=== PATIENT | male | born 1950 | race Caucasian/White ===

== ENCOUNTER → 2018-07-21 05:14 | Outpatient (CLI) | payer BC, MEDICARE, SELFPAY ==
[2018-07-21 07:41] LABS: AST(SGOT) 21 U/L (15-37); Alanine Aminotransfer ALT/SGPT 30 U/L (16-61); Albumin, Serum 3.6 g/dL (3.2-5.0); Alkaline Phosphatase 79 U/L (45-117); Bilirubin, Direct 0.13 mg/dL (0.00-0.30); Cholesterol 165 mg/dL (200); Globulin 3.3 g/dL (2.2-4.2); High Density Lipoprotein 54 mg/dL; Protein, Total 6.9 g/dL (6.4-8.2); Triglycerides 74 mg/dL; Very Low Density Lipoprotein 15 mg/dL (5-40)
== END ==
PROVIDERS: Nurse Practitioner Family; Referring Provider Internal Medicine Cardiovascular Disease; Visit Provider Internal Medicine Cardiovascular Disease
DX: E78.2 Mixed hyperlipidemia (principal)
CPT/HCPCS: 36415; 80061; 80076

== ENCOUNTER 2018-07-27 04:41 | Emergency (ER) | payer BC, MEDICARE, SELFPAY ==
[2018-07-27 04:43] VITALS: BP 106/77; PULSE 67; RESP 18; TEMP 36.6; O2SAT 98; BMI 27.8
[2018-07-27 04:50] VITALS: O2SAT 93
--- NOTE | 2018-07-27 04:56 | CT_ITS ---
STUDY: CT BRAIN WITHOUT CONTRAST REASON FOR EXAM: Male, 68 years old. Fell off porch RADIATION DOSAGE (If Supplied By Facility): CTDIvol = ( 44.99 ) mGy, DLP = ( 812.98 ) mGycm TECHNIQUE: Transaxial CT imaging of the brain was performed without administration of intravenous contrast material. Individualized dose optimization techniques were used for this CT. COMPARISON: None. FINDINGS: Normal soft tissue structures. Normal calvarium. Normal size ventricles and extra-axial spaces for the patient's age. There are areas of decreased attenuation within the white matter tracts of the supratentorial brain, consistent with microvascular disease changes. Age-related changes of the basal ganglia. Normal brainstem. Normal cerebellum. There is no intracranial hemorrhage. There are no findings of an acute ischemic infarction. Bilateral ethmoid sinus disease. Right sphenoid sinus disease. CT/Brain/Head without Contrast IMPRESSION: No fracture or hemorrhage. Electronically Signed: Farhan Levine MD at 6:28 EDT Tel , Service support ,
--- NOTE | 2018-07-27 04:56 | EKG12_ITS ---
Test Reason : FALL Blood Pressure : / mmHG Vent. Rate : 073 BPM Atrial Rate : 073 BPM P-R Int : 148 ms QRS Dur : 098 ms QT Int : 396 ms P-R-T Axes : 073 017 033 degrees QTc Int : 436 ms Normal sinus rhythm Possible Left atrial enlargement Inferior infarct , age undetermined Abnormal ECG Confirmed by MOSES PACE, CAL ([id number]), subeditor DESTINI GAVIRIA ([id number]) on 07/28/2018 2:11:07 PM Referred By: Cal Brody Confirmed By:CAL BRODY MD
--- NOTE | 2018-07-27 04:56 | CT_ITS ---
STUDY: CT CERVICAL SPINE WITHOUT CONTRAST REASON FOR EXAM: Male, 68 years old. Trauma, fell off porch RADIATION DOSAGE (If Supplied By Facility): CTDIvol = ( 25.54 ) mGy, DLP = ( 518.29 ) mGycm TECHNIQUE: High resolution transaxial imaging was performed without contrast material. Sagittal and coronal images were reconstructed. Individualized dose optimization techniques were used for this CT. COMPARISON: None FINDINGS: Normal craniovertebral junction. Degenerative changes are present involving the atlantodental articulation. Normal odontoid process. Normal cervical lordosis. Normal vertebral bodies and posterior osseous elements. Diffuse degenerative disease is present. No acute fractures or dislocations are seen. Carotid calcifications. CT/Spine Cervical without Contras IMPRESSION: No acute osseous injury is evident. Comment: MRI is more sensitive than CT in detecting cord injury, ligament injury, and epidural hematoma. If there is continued clinical concern for any of these entities, MRI correlation should be considered if possible. Electronically Signed: Farhan Levine MD at 6:31 EDT Tel , Service support ,
--- NOTE | 2018-07-27 04:56 | CT_ITS ---
STUDY: CT ABDOMEN AND PELVIS WITH CONTRAST REASON FOR EXAM: Male, 68 years old. Fell off porch RADIATION DOSAGE (If Supplied By Facility): CTDIvol = ( 21.24 ) mGy, DLP = ( 2365.95 ) mGycm TECHNIQUE: Transaxial images were obtained from the dome of the diaphragm to the symphysis pubis without oral contrast. 100 ml of Isovue 300 contrast was administered. Sagittal and coronal images were reconstructed. Individualized dose optimization techniques were used for this CT. COMPARISON: None. FINDINGS: The visualized lung bases are unremarkable. The visualized portions of the heart are within normal limits. Indeterminate 17 mm low-density focus in the left hepatic lobe. Normal gallbladder and extrahepatic biliary system. Normal spleen. Normal pancreas. Normal bilateral adrenal glands. 2 cm right renal cyst. Normal left kidney. Normal visualized stomach. Normal small intestine. Normal colon. There is non-visualization of the appendix. There is diffuse atherosclerotic calcification of the abdominal aorta, without a demonstrated aneurysm. Normal inferior vena cava. Normal retroperitoneum. Normal urinary bladder. Normal abdominal wall. Acute fractures of left ribs [address]/Abdomen/Pelvis W IV Cont ONLY IMPRESSION: Acute fractures of left ribs 7 through 10. No acute soft tissue injury is seen involving the abdomen or pelvis. Electronically Signed: Farhan Levine MD at 6:48 EDT Tel , Service support ,
--- NOTE | 2018-07-27 04:56 | CT_ITS ---
STUDY: CT CHEST WITHOUT CONTRAST REASON FOR EXAM: Male, 68 years old. Fall off porch RADIATION DOSAGE (If Supplied By Facility): CTDIvol = ( 21.24 ) mGy, DLP = ( 2365.95 ) mGycm TECHNIQUE: Transaxial imaging was performed without the administration of intravenous contrast material. Individualized dose optimization techniques were used for this CT. COMPARISON: None. FINDINGS: Left lower lobe hemorrhage contusion. Bibasilar atelectasis. Calcified pleural plaques. Normal heart and pericardium. Normal mediastinum. Normal hilar regions. Normal unenhanced pulmonary arteries. Normal aorta arch and descending thoracic aorta. Acute fractures of left ribs 7 through 10. There is no demonstrated abnormality of the visualized upper abdomen. CT/Chest WITH Contrast IMPRESSION: Left lower lobe pulmonary contusion. Acute fractures of left ribs 7 through 10. Electronically Signed: Farhan Levine MD at 6:42 EDT Tel , Service support ,
[2018-07-27] MEDS: Ondansetron 4 MG/2 ML Vial IV (05:07)
[2018-07-27] MEDS: 0.9% Normal Saline 1,000 ML 999 ML IV (05:07)
[2018-07-27] MEDS: Morphine 4 MG/ML Syringe IV (05:10)
[2018-07-27 05:11] LABS: Absolute Lymphocyte Count 1.09 X10^3/ul (0.83-4.51); Basophil# 0.01 X10^3/uL; Basophil% 0.1 % (0-1); Eosinophil# 0.17 X10^3/uL; Eosinophils% 1.7 % (0-5); Hematocrit 40.2 % (40-54); Hemoglobin 13.8 g/dl (13.0-16.5); Lymphocyte # 1.09 X10^3/ul (4.0); Lymphocyte % 10.9 % (19-41); Mean Corp Hgb Conc 34.3 g/gl (32-36); Mean Corpuscular Hgb 29.9 pg (27.0-32.0); Mean Corpuscular Volume 87.2 fL (80-94); Mean Platelet Vol. 9.8 fl (6.2-12.0); Monocyte# 0.71 X10^3/uL; Monocyte% 7.1 % (0-10); Neutrophil # 7.99 X10^3/uL (2.7-7.7); POSITIVE COUNT NO; POSITIVE DIFFERENTIAL NO; POSITIVE MORPHOLOGY NO; Platelet Count 183 K/mm3 (150-450); RBC Distribution Width CV 13.3 % (11.6-14.6); RBC Distribution Width SD 42.4 fl (35.1-43.9); Red Blood Count 4.61 M/mm3 (4.6-6.2)
[2018-07-27 05:26] LABS: Anion Gap 10 (5-15); BUN 15 mg/dL (7-18); Calcium,Total 8.7 mg/dL (8.5-10.1); Chloride 102 mmol/L (98-107); Creatinine, Serum 1.15 mg/dL (0.70-1.30); EST Glomerular Filtration Rate 68 mL/min (>60); Est Glom Filt Rate - Afr Amer 82 mL/min (>60); Estimated Creatinine Clearance 65.24 ml/min; Glucose 170 mg/dL (74-106); Potassium 4.4 mmol/L (3.5-5.1); Sodium Level 137 mmol/L (136-145)
--- NOTE | 2018-07-27 07:07 | ED.VISSUMM ---
- ER Visit Summary Date of Service: 07/27/18 Chief Complaint: Broken ribs History of Present Illness: The patient is a 68 M with suspected broken ribs. He got up around 10:30 PM last night to smoke a cigarette. He bent forward to put out a cigarette. He fell off his porch and onto an air conditioning unit. He injured his left chest. He is unsure if he lost consciousness. He denies head or neck pain. Denies any neurologic symptoms. He does take aspirin and Plavix. Denies any other injuries or complaints. Physical Examination: Patient is afebrile and vital signs are unremarkable. Head and neck are atraumatic. Heart regular rate and rhythm. Lungs clear. Left anterior chest wall is tender to palpation. Abdomen tender to palpation in the left upper quadrant. Extremities atraumatic. Cranial nerves grossly intact. Moves all extremities. Good pulses. Good skin color. Test Results: EKG showed sinus rhythm at a rate of 73. Troponin normal. CBC normal. Glucose 170. Urinalysis pending. CT head and neck showed no acute findings. CT chest, abdomen, and pelvis showed a fracture of the left ribs 7, 8, 9, and 10. He has an underlying left lower lobe pulmonary contusion. Emergency Department Course and Treatment: Patient was seen on arrival. He was treated with fluids, morphine, and Zofran. Workup was unremarkable except for the rib fractures and pulmonary contusion. Given his age, symptoms, and mechanism, I am transferring to a trauma center. After speaking with the patient, I contacted [facility]. Dr. Ceron accepted the patient to the emergency department. Treatment Plan: As above Disposition: Transfer to [facility] Impression: 1. Left rib fractures 7, 8, 9, and 10 2. left pulmonary contusion This note was generated with BBE dictation software. It may contain incorrect words, spelling, and punctuation that were not noted in review of the chart prior to signing ED Disposition - Plan for ED Patient: Chief Complaint: Fall Referrals: Care Physician,No Primary [Primary Care Provider] -
--- NOTE | 2018-07-27 07:11 | ED.DCSUM_ITS ---
- ER Visit Summary Date of Service: 07/27/18 Chief Complaint: Broken ribs History of Present Illness: The patient is a 68 M with suspected broken ribs. He got up around 10:30 PM last night to smoke a cigarette. He bent forward to put out a cigarette. He fell off his porch and onto an air conditioning unit. He injured his left chest. He is unsure if he lost consciousness. He denies head or neck pain. Denies any neurologic symptoms. He does take aspirin and Plavix. Denies any other injuries or complaints. Physical Examination: Patient is afebrile and vital signs are unremarkable. Head and neck are atraumatic. Heart regular rate and rhythm. Lungs clear. Left anterior chest wall is tender to palpation. Abdomen tender to palpation in the left upper quadrant. Extremities atraumatic. Cranial nerves grossly intact. Moves all extremities. Good pulses. Good skin color. Test Results: EKG showed sinus rhythm at a rate of 73. Troponin normal. CBC normal. Glucose 170. Urinalysis pending. CT head and neck showed no acute findings. CT chest, abdomen, and pelvis showed a fracture of the left ribs 7, 8, 9, and 10. He has an underlying left lower lobe pulmonary contusion. Emergency Department Course and Treatment: Patient was seen on arrival. He was treated with fluids, morphine, and Zofran. Workup was unremarkable except for the rib fractures and pulmonary contusion. Given his age, symptoms, and mechanism, I am transferring to a trauma center. After speaking with the patient, I contacted [facility]. Dr. Ceron accepted the patient to the emergency department. Treatment Plan: As above Disposition: Transfer to [facility] Impression: 1. Left rib fractures 7, 8, 9, and 10 2. left pulmonary contusion This note was generated with Navut dictation software. It may contain incorrect words, spelling, and punctuation that were not noted in review of the chart prior to signing ED Disposition - Plan for ED Patient: Chief Complaint: Fall Referrals: Care Physician,No Primary [Primary Care Provider] -
[2018-07-27 07:15] VITALS: BP 122/79; PULSE 71; RESP 16; O2SAT 96
[2018-07-27 07:17] LABS: Bacteria 0 SEEN /hpf (None Seen); Mucous, Urine 0 SEEN /hpf (<or=2+); Red Blood Cells-Urine 0 SEEN /hpf (0-5); Squamous Epithelial Cells - UA 0 SEEN /hpf (0-5); White Blood Cells 0 SEEN /hpf (0-5)
[2018-07-27 07:20] LABS: Color, Urine Yellow (Yellow); Glucose, Dipstick Normal (Normal); Ketone-Dipstick Negative (Negative); Leukocyte Esterase-Dipstick Negative /ul (Negative); Nitrite-Dipstick Negative (Negative); Occult Blood-Urine Negative /ul (Negative); Protein-Dipstick Negative (Negative); Urine Bilirubin Dipstick Negative (Negative); Urine Clarity Clear (Clear); Urine Urobilinogen Normal (Normal)
[2018-07-27 07:28] VITALS: BP 122/79; PULSE 70; RESP 15; TEMP 36.6; O2SAT 96
== END 2018-07-27 08:19 | disposition short-term general hospital (02) ==
LOC: ED 04:58
PROVIDERS: Emergency Provider Emergency Medicine
DX: S22.42XA Multiple fractures of ribs, left side, initial encounter for closed fracture (principal); S27.321A Contusion of lung, unilateral, initial encounter; W17.89XA Other fall from one level to another, initial encounter; Y93.9 Activity, unspecified; Y92.008 Other place in unspecified non-institutional (private) residence as the place of occurrence of the external cause; Y99.9 Unspecified external cause status; Z79.82 Long term (current) use of aspirin; I10 Essential (primary) hypertension; E78.00 Pure hypercholesterolemia, unspecified; I25.10 Atherosclerotic heart disease of native coronary artery without angina pectoris; Z72.0 Tobacco use
CPT/HCPCS: 70450; 71260; 72125; 74177; 80048; 81001; 84484; 85025; 93005; 96361; 96374; 96375; 99285; J7030; Q9967; A4216; J2405

== ENCOUNTER → 2018-08-11 09:31 | Outpatient (CLI) | payer BC, MEDICARE, SELFPAY ==
--- NOTE | 2018-08-11 09:34 | CDU_ITS ---
Reason For Study: Syncope Rt. Velocities/BP Lt. Velocities/BP Prox CCA 108/19.9 cm/sec. Prox CCA 102/17.3 cm/sec. Mid CCA 83.3/17 cm/sec. Mid CCA 105/23.6 cm/sec. Dist CCA 75/17 cm/sec. Dist CCA 84.1/17.3 cm/sec. Prox ICA 66.3/22.3 cm/sec. Prox ICA 167/53 cm/sec. Mid ICA 70.4/23.5 cm/sec. Mid ICA 145/31.4 cm/sec. Dist ICA 70.4/24 cm/sec. Dist ICA 106/17 cm/sec. Rt. ICA/CCA = 0.85. Lt. ICA/CCA = 1.64. Prox ECA 81.5/8.79 cm/sec. Prox ECA 101/12.6 cm/sec. Rt. Vert. 35.9/10.2 cm/sec. Lt. Vert. 62.7/15.8 cm/sec. Right Extracranial There is intimal thickening but no significant atherosclerotic plaque noted in the right common carotid artery. There is intimal thickening but no significant atherosclerotic plaque noted in the right internal carotid artery. There is intimal thickening but no significant atherosclerotic plaque noted in the right external carotid artery. Antegrade flow is noted in the right vertebral artery. Left Extracranial There is homogeneous, smooth atherosclerotic plaque noted in the left common carotid artery. There is homogeneous, irregular atherosclerotic plaque noted in the left internal carotid artery. There is intimal thickening but no significant atherosclerotic plaque noted in the left external carotid artery. Antegrade flow is noted in the left vertebral artery. Procedure Carotid Duplex [id number]. Exam performed in department. Interpretation Summary Mild (<50%) stenosis right extracranial internal carotid. Moderate (50-69%) stenosis left extracranial internal carotid. Flow within the vertebral arteries is antegrade bilaterally. Ordering Physician: Juliet Enrique Referring Physician: Sampson De La Vega Performed By: Chrissy Minaya RVT and Student
== END ==
PROVIDERS: Family Provider Family Medicine; PCP Family Medicine; Referring Provider Physician Assistant Medical
DX: R42 Dizziness and giddiness (principal)
CPT/HCPCS: 93880

== ENCOUNTER → 2018-08-15 13:15 | Outpatient (CLI) | payer BC, MEDICARE, SELFPAY ==
[2018-08-15 16:18] LABS: Absolute Lymphocyte Count 1.66 X10^3/ul (0.83-4.51); Absolute Neutrophil Count 4.4 X10^3/uL (2.0-7.7); Basophil# 0.03 X10^3/uL; Basophil% 0.4 % (0-1); Eosinophil# 0.37 X10^3/uL; Eosinophils% 5.2 % (0-5); Hematocrit 42.4 % (40-54); Hemoglobin 14.2 g/dl (13.0-16.5); Lymphocyte # 1.66 X10^3/ul (4.0); Lymphocyte % 23.4 % (19-41); Mean Corp Hgb Conc 33.5 g/gl (32-36); Mean Corpuscular Hgb 29.5 pg (27.0-32.0); Mean Platelet Vol. 10.1 fl (6.2-12.0); Monocyte# 0.64 X10^3/uL; Neutrophil # 4.38 X10^3/uL (2.7-7.7); Neutrophil % 61.7 % (47-70); Platelet Count 325 K/mm3 (150-450); RBC Distribution Width CV 13.5 % (11.6-14.6); RBC Distribution Width SD 42.9 fl (35.1-43.9); Red Blood Count 4.82 M/mm3 (4.6-6.2); White Blood Count 7.1 K/mm3 (4.4-11.0)
[2018-08-15 16:20] LABS: POSITIVE COUNT NO; POSITIVE DIFFERENTIAL NO; POSITIVE MORPHOLOGY NO
[2018-08-15 16:39] LABS: AST(SGOT) 14 U/L (15-37); Alanine Aminotransfer ALT/SGPT 40 U/L (16-61); Albumin, Serum 3.8 g/dL (3.2-5.0); Alkaline Phosphatase 143 U/L (45-117); Anion Gap 10 (5-15); BUN 16 mg/dL (7-18); Calcium,Total 9.1 mg/dL (8.5-10.1); Chloride 101 mmol/L (98-107); Cholesterol 155 mg/dL (200); Creatinine, Serum 1.07 mg/dL (0.70-1.30); EST Glomerular Filtration Rate 74 mL/min (>60); Est Glom Filt Rate - Afr Amer 89 mL/min (>60); Globulin 3.9 g/dL (2.2-4.2); Glucose 137 mg/dL (74-106); High Density Lipoprotein 48 mg/dL; PSA,Total - Annual Screen 0.53 ng/mL (0.00-4.00); Potassium 3.8 mmol/L (3.5-5.1); Protein, Total 7.7 g/dL (6.4-8.2); Sodium Level 140 mmol/L (136-145); Thyroid Stim Hormone (TSH) 1.29 uIU/mL (0.358-3.74); Triglycerides 160 mg/dL; Very Low Density Lipoprotein 32 mg/dL (5-40)
[2018-08-15 16:47] LABS: Vitamin D,25 Hydroxy 31.6 ng/mL (29.95-100.01)
[2018-08-18 09:35] LABS: Hemoglobin A1c 6.9 % (4.2-6.3)
== END ==
PROVIDERS: Family Provider Family Medicine; PCP Family Medicine; Referring Provider Family Medicine; Visit Provider Family Medicine
DX: E78.5 Hyperlipidemia, unspecified (principal); I10 Essential (primary) hypertension; E55.9 Vitamin D deficiency, unspecified; Z12.5 Encounter for screening for malignant neoplasm of prostate; R73.09 Other abnormal glucose
CPT/HCPCS: 36415; 80053; 80061; 82306; 83036; 84153; 84443; 85025; G0103

== ENCOUNTER → 2018-08-18 09:34 | Outpatient (CLI) | payer BC, MEDICARE, SELFPAY ==
[2018-08-18 09:37] LABS: Bacteria 0 SEEN /hpf (None Seen); Mucous, Urine 0 SEEN /hpf (<or=2+); Red Blood Cells-Urine 0 SEEN /hpf (0-5); Squamous Epithelial Cells - UA 0 SEEN /hpf (0-5)
[2018-08-18 11:53] LABS: Color, Urine Yellow (Yellow); Glucose, Dipstick 50 mg/dl (Normal); Ketone-Dipstick Negative (Negative); Leukocyte Esterase-Dipstick 25 /ul (Negative); Nitrite-Dipstick Negative (Negative); Occult Blood-Urine 10 /ul (Negative); Protein-Dipstick Negative (Negative); Urine Bilirubin Dipstick Negative (Negative); Urine Clarity Clear (Clear); Urine Urobilinogen Normal (Normal); Urine pH 6.5 (5.0 - 8.0)
[2018-08-18 12:01] LABS: White Blood Cells 0-5 SEEN /hpf (0-5)
== END ==
LOC: MFPLAB 09:35 → LABSPEC 09:49
PROVIDERS: Family Provider Family Medicine; PCP Family Medicine; Visit Provider Family Medicine
DX: I10 Essential (primary) hypertension (principal)
CPT/HCPCS: 81001

== ENCOUNTER → 2018-09-09 09:06 | Outpatient (CLI) | payer BC, MEDICARE, SELFPAY ==
--- NOTE | 2018-09-09 09:12 | US_ITS ---
STUDY: RENAL ULTRASOUND - COMPLETE REASON FOR EXAM: Male, 68 years old. Incomplete bladder emptying TECHNIQUE: Ultrasound evaluation of the kidneys was performed with real-time and static goetz-scale imaging. COMPARISON: None. FINDINGS: RIGHT KIDNEY: Normal location of the right kidney, which is normal in size. The right kidney measures 10.0 x 4.7 x 5.0 cm. There is a normal cortex of the right kidney. The renal cortex measures 1.8 cm. Anechoic renal cyst with posterior acoustic enhancement of the inferior right kidney measures 1.3 cm, compatible with a simple cyst. There are no right renal calculi. There is no right hydronephrosis. DISTAL RIGHT URETER: There is non-visualization of the distal right ureter. There is no demonstrated right ureterovesical junction calculus. There is a visualized right ureteral jet. LEFT KIDNEY: Normal location of the left kidney, which is normal in size. The left kidney measures 11.1 x 6.5 x 4.9 cm. There is a normal cortex of the left kidney. The renal cortex measures 1.2 cm. There is no left renal mass or cyst. There are no left renal calculi. There is no left hydronephrosis. DISTAL LEFT URETER: There is non-visualization of the distal left ureter. There is no demonstrated left ureterovesical junction calculus. There is a visualized left ureteral jet. BLADDER: The distended urinary bladder has a volume of 880 ml. The empty urinary bladder has a volume of 710 ml. There is a normal wall thickness of the distended urinary bladder. There is no demonstrated mass within the urinary bladder. There are no demonstrated bladder calculi. There is a small urinary bladder diverticulum (right posterior). US/Kidney and Bladder IMPRESSION: 1. No hydronephrosis. 2. Significant postvoid residual volume (greater than 700 mL). 3. Small right posterolateral urinary bladder diverticulum. 4. Simple right renal cyst. Electronically Signed: Steve Guevara MD at 19:08 EST , Service support ,
== END ==
PROVIDERS: Family Provider Family Medicine; PCP Family Medicine; Referring Provider Family Medicine; Visit Provider Family Medicine
DX: R33.9 Retention of urine, unspecified (principal)
CPT/HCPCS: 76770

== ENCOUNTER 2018-09-18 13:00 | Outpatient (RCR) | payer BC, MEDICARE, SELFPAY | END 2018-09-19 23:59 | LOC: DC 13:00 | PROVIDERS: Family Provider Family Medicine; PCP Family Medicine; Visit Provider Family Medicine | DX: E11.9 Type 2 diabetes mellitus without complications (principal); Z71.3 Dietary counseling and surveillance | CPT/HCPCS: 97802; G0108 ==

== ENCOUNTER → 2018-09-23 10:02 | Outpatient (CLI) | payer BC, MEDICARE, SELFPAY ==
[2018-09-17 12:59] VITALS: BMI 27.3
[2018-09-23 10:31] LABS: Hematocrit 41.2 % (40-54); Hemoglobin 14.2 g/dl (13.0-16.5); Mean Corp Hgb Conc 34.5 g/gl (32-36); Mean Corpuscular Hgb 29.7 pg (27.0-32.0); Mean Corpuscular Volume 86.2 fL (80-94); Mean Platelet Vol. 9.7 fl (6.2-12.0); Platelet Count 216 K/mm3 (150-450); RBC Distribution Width CV 12.8 % (11.6-14.6); RBC Distribution Width SD 39.5 fl (35.1-43.9); Red Blood Count 4.78 M/mm3 (4.6-6.2); White Blood Count 6.9 K/mm3 (4.4-11.0)
[2018-09-23 10:38] LABS: Scan Indicated on CBC? Y/N NO
[2018-09-23 11:10] LABS: Anion Gap 5 (5-15); BUN 13 mg/dL (7-18); BUN/Creat Ratio 14.4 RATIO (10-20); Chloride 103 mmol/L (98-107); EST Glomerular Filtration Rate 89 mL/min (>60); Est Glom Filt Rate - Afr Amer 108 mL/min (>60); Glucose 112 mg/dL (74-106); Potassium 4.5 mmol/L (3.5-5.1); Sodium Level 136 mmol/L (136-145)
== END ==
PROVIDERS: Family Provider Family Medicine; PCP Family Medicine; Referring Provider Internal Medicine Cardiovascular Disease; Visit Provider Internal Medicine Cardiovascular Disease
DX: R42 Dizziness and giddiness (principal); R55 Syncope and collapse
CPT/HCPCS: 36415; 80048; 85027

== ENCOUNTER → 2018-10-06 07:22 | Day surgery (SDC) | payer BC, MEDICARE, SELFPAY ==
[2018-09-17 12:59] VITALS: BMI 27.3
[2018-10-03 09:12] VITALS: BMI 27.3
--- NOTE | 2018-10-06 09:03 | CL.IE_ITS ---
Patient: JANETT WALLIS Study Date: 10/06/2018 Performing: Xavi Brody MD : 1950 Age: 68 Gender: male PROCEDURES PERFORMED [id number] OF LOOP RECORDER INDICATIONS Syncope PROCEDURE DETAILS The patient was brought to the Catheterization Lab in the postabsorptive nonsedated state. Infor med consent was obtained prior to the procedure. Local anesthetic was given subcutaneously to the le ft subclavian region with Lidocaine 2%. Pressure dressing applied to left chest. The patient tolerat ed the procedure well. Estimated Blood Loss: 0 ml's IMPLANTED / EX-PLANTED DEVICES IMPLANTED DEVICE(S): ICM Loop Recorder - Tooler: [employer], Model # LNQ11 , Serial # [id number] DEVICE PARAMETERS CONCLUSIONS / RECOMMENDATIONS Device Conclusions: Successful implantation of a patient activated loop recorder. Device Recommendations: Follow up with Primary Care Physician PROCEDURE MEDICATIONS Versed 1 mg IV Fentanyl 50 mcg IV Oxygen: 2 L/min via nasal cannula Ancef 2 Gm IV @ 10/06/2018 08:43:11 Signed By Xavi Brody MD On 10/06/2018 09:02:17 Xavi Brody MD
--- OUTSIDE RECORDS SUMMARY | 2019-01-07 17:08 | XMS RPT_ITS ---
:1950 Author Organization OHIP Support Name Relationship Address Phone RADHA VUONGNDA Unavailable [address] + [place] [address] R Unavailable Unavailable Unavailable VUONG, KIMMIE Unavailable [address] + [place] [address] R Unavailable Unavailable Unavailable VUONG, KIMMIE Unavailable [address] + [place] [address] R Unavailable Unavailable Unavailable VUONG, KIMMIE Unavailable [address] + [place] [address] R Unavailable Unavailable Unavailable VUONG, KIMMIE Unavailable [address] + [place] [address] R Unavailable Unavailable Unavailable VUONG, KIMMIE Unavailable [address] + [place] [address] R Unavailable Unavailable Unavailable VUONG, KIMMIE Unavailable [address] + [place] [address] R Unavailable Unavailable Unavailable VUONG, KIMMIE Unavailable [address] + [place] [address] R Unavailable Unavailable Unavailable VUONG, KIMMIE Unavailable [address] + [place] [address] R Unavailable Unavailable Unavailable VUONG, KIMMIE Unavailable [address] + [place] [address] R Unavailable Unavailable Unavailable VUONG, KIMMIE Unavailable [address] + [place] [address] R Unavailable Unavailable Unavailable VUONG, KIMMIE Unavailable [address] + [place] [address] R Unavailable Unavailable Unavailable VUONG, KIMMIE Unavailable [address] + [place] [address] R Unavailable Unavailable Unavailable VUONG, KIMMIE Unavailable [address] + [place] [address] R Unavailable Unavailable Unavailable VUONG, KIMMIE Unavailable [address] + [place] [address] R Unavailable Unavailable Unavailable VUONG, KIMMIE Unavailable [address] + [place] [address] R Unavailable Unavailable Unavailable VUONG, KIMMIE Unavailable [address] + [place] [address] R Unavailable Unavailable Unavailable VUONG, KIMMIE Unavailable [address] + [place] [address] R Unavailable Unavailable Unavailable VUONG, KIMMIE Unavailable [address] + [place] [address] R Unavailable Unavailable Unavailable VUONG, KIMMIE Unavailable [address] + [place] [address] R Unavailable Unavailable Unavailable VUONG, KIMMIE Unavailable [address] + [place] [address] R Unavailable Unavailable Unavailable VUONG, KIMMIE Unavailable [address] + [place] [address] R Unavailable Unavailable Unavailable Care Team Providers Name Role Sampson Calles Attending Unavailable Raúl Prabhakar Referring Unavailable NoKenyatta trimble Attending Unavailable Mary Grace, Xavi Attending Unavailable Mary Grace, Xavi Referring Unavailable Primay Care Physicia, No Primary Care Unavailable Mary Grace, Cerro Attending Unavailable Primay Care Physicia, No Referring Unavailable Mary Grace, Cerro Attending Unavailable Mary Grace, Cerro Referring Unavailable Sampson De La Vega Primary Care Unavailable Mary Grace, Cerro Attending Unavailable Mary Grace, Cerro Referring Unavailable Ross Ochoa Attending Unavailable Ross Ochoa Referring Unavailable Sampson De La Vega Primary Care Unavailable Mary Grace, Xavi Attending Unavailable Mary Grace, Cerro Referring Unavailable Mary Grace, Cerro Attending Unavailable Js Barrios Referring Unavailable Sampson De La Vega Primary Care Unavailable Ranjan Guerrier Attending Unavailable Primay Care Physicia, No Primary Care Unavailable Zaki Smith Attending Unavailable Juliet Enrique Attending Unavailable Primay Care Physicia, No Referring Unavailable MARIAA DUGAN Attending Unavailable Juliet Enrique Referring Unavailable Schinner, Sampson E Primary Care Unavailable EnriqueJuliet thomas Attending Unavailable Juliet Enrique Referring Unavailable Schinner, Sampson E Primary Care Unavailable Schinner, Sampson E Attending Unavailable Schinner, Sampson E Referring Unavailable Schinner, Sampson E Primary Care Unavailable Schinner, Sampson E Attending Unavailable Schinner, Sampson E Primary Care Unavailable Schinner, Sampson E Attending Unavailable Schinner, Sampson E Referring Unavailable Schinner, Sampson E Primary Care Unavailable Schinner, Sampson E Attending Unavailable Schinner, Sampson E Primary Care Unavailable Juliet Enrique Attending Unavailable Primay Care Physicia, No Referring Unavailable Schinner, Sampson E Attending Unavailable Schinner, Sampson E Primary Care Unavailable Nalini Moncada Attending Unavailable Primay Care Physicia, No Referring Unavailable Mary GraceIlya dowdril Attending Unavailable Mary Grace, Cer[place] Referring Unavailable Schinner, Sampson E Primary Care Unavailable MALLAT, ALI Admitting Unavailable MALLAT, ALI Attending Unavailable MUNIRALIA, FARID MURALI Consulting Unavailable IMCA Primary Care Unavailable MALLAT, ALI F Admitting Unavailable MALLAT, ALI F Attending Unavailable MUAKJESSEA, FARID F Consulting Unavailable PROBLEMS PROBLEMS DATE TYPE CONDITION / CODE ATTENDING STATUS SOURCE Unknown Z71.3 - Dietary Schinner, Active [facility] counseling and [facility] surveillance / Hospital Z71.3(ICD-10) Repository Unknown R94.31 - Abnormal Mary Grace, Xavi Active [facility] electrocardiogram [ECG] Community [EKG] / R94.31(ICD-10) Hospital Repository Unknown R42 - Dizziness and Antwan, Active [place] giddiness / R42(ICD-10) [facility] Repository Unknown R55 - Syncope and Klaus, Active [place] collapse / R55(ICD-10) [facility] Repository Unknown I48.91 - Unspecified Klaus Active [facility] atrial fibrillation / [facility] I48.91(ICD-10) Hospital Repository Unknown E78.00 - Pure Klaus, Active [facility] hypercholesterolemia, [place] Community unspecified / Hospital E78.00(ICD-10) Repository Unknown E78.0 - Pure Klaus, Active [facility] hypercholesterolemia / [facility] E78.0(ICD-10) Hospital Repository Active Contusion of lung, MALLAT, ALI Active [facility] unilateral, initial Clinic Other encounter / [place] S27.321A(ICD-10) Repository Active Dizziness and giddiness / MALLAT, ALI Active [facility] R42(ICD-10) Clinic Other [place] Repository Active Unspecified fall, initial MALLAT, ALI Active [facility] encounter / Clinic Other W19.XXXA(ICD-10) [place] Repository Active Multiple fractures of MALLAT, ALI Active [facility] ribs, left side, initial Clinic Other encounter for closed [place] fracture / Repository S22.42XA(ICD-10) Active Hemoptysis / MALLAT, ALI Active [facility] R04.2(ICD-10) Clinic Other [place] Repository Active Abnormal levels of other MALLAT, ALI Active [place] [facility] serum enzymes / Clinic Other R74.8(ICD-10) [place] Repository Admitting Unknown / UNK(Unknown) MALLAT, ALI F Active [facility] Repository Unknown S22.42XA - Multiple Zaki Smith Active [place] 8 fractures of ribs, left Community side, initial encounter Hospital for closed fracture / Repository S22.42XA(ICD-10) Unknown I10 - Essential (primary) Mary Grace, Xavi Active [facility] hypertension / Community I10(ICD-10) Hospital Repository Unknown I25.10 - Atherosclerotic Mary Grace, [place] Active [facility] heart disease of [place] Community coronary artery without Hospital angina pectoris / Repository I25.10(ICD-10) Unknown E78.5 - Hyperlipidemia, Mary Grace, Xavi Active [facility] unspecified / Community E78.5(ICD-10) Hospital Repository Unknown E78.2 - Mixed Mary Grace, [place] Active [facility] hyperlipidemia / Community E78.2(ICD-10) Hospital Repository PROCEDURES PROCEDURES No Procedure Records FoundRESULTS RESULTS EMERGENCY DEPARTMENT Observed: 11/07/2018 Status: F Source: [place] SUMMARY 12:13 AM [facility] REPOSITORY [facility] Medical Records Department [address] [place] [address] Emergency Department Summary 11/06/182032 MR#: [id number] Acct: [id number] Name: JANETT VUONG Rep #: [id number] : 1950 68 From: Ranjan Guerrier MD PCP: Sampson De La Vega MD Status: DEP ER - ER Visit Summary Date of Service: 11/06/18 Chief Complaint: Urinary retention History of Present Illness: The patient is a [address] Ochoa, Dr. Brody, and Dr. De La Vega. He reports that he had surgery yesterday for a bladder tumor and a TURP. He had his catheter removed approximately noon today and was able to urinate following this. However as the night is gone on he is just started to dribble. He denies any fever or chills. No nausea, vomiting, or other constitutional symptoms. Physical Examination: Vitals: Stable. Afebrile. General: Well-nourished and well-developed. Head: Normocephalic atraumatic. Neck: Supple, no lymphadenopathy. No JVD. Nontender. Cardiovascular: Regular rate and rhythm. No murmurs. Respiratory: No respiratory distress. Clear to auscultation bilaterally. Abdominal: Soft, mild suprapubic tenderness to palpation over an obviously distended bladder, nondistended, normal bowel sounds. No guarding, rebound, or peritoneal signs. Back: Nontender. Extremities: Nontender, no edema. Skin: Normal color, no rash. Neurologic: Alert and oriented 3. Cranial nerves II through XII are intact. Normal strength and sensation. Psych: Normal affect. Emergency Department Course and Treatment: Patient had a Berrios catheter placed without difficulty. He tolerated this well. It drained approximately 900 cc of pink tinged urine. There were no clots. It is draining well. Treatment Plan: Patient was discussed with Dr. Ochoa. He would like the patient discharged with instructions to continue his Cipro. Follow-up in 1 week to have the catheter removed. Return to the emergency department for any worsening symptoms. Disposition: To home in improved and stable condition. Impression: 1. Urinary retention. 2. 1 day status post bladder surgery. This note was generated with MyClasses dictation software. It may contain incorrect words, spelling, and punctuation that were not noted in review of the chart prior to signing ED Disposition - Plan for ED Patient: Chief Complaint: Complaint Instructions: ED Retention Urinary Male Referrals: Ross Ochoa MD [STAFF PHYSICIAN] - 1 Week What to do if you have Problems For any increased pain, shortness of breath, bleeding, nausea or vomiting, chest pain, or any unexpected problems, contact your Primary Care Provider. Call [facility] ([phone]) or report to the closest Emergency Room. Call 911 if necessary. 11/07/18 0013 <Electronically signed by Ranjan Guerrier MD> Date Ranjan Guerrier MD Cosigner Signature (If Indicated): Date CC: Sampson De La Vega MD BEDSIDE GLUCOSE Collected: 11/06/2018 Status: F Source: [place] 6:32 AM [facility] REPOSITORY TYPE CODE TESTS RESULT OUT OF REFERENCE UNITS RANGE LAB L501.080 70-110 mg/dL High BEDSIDE GLU 128 Result Comment: MANAGEMENT OF PATIENT CARE PER NURSING PROTOCOL Performed By: #### L501.080 #### [facility] Point of Care [address] [place] [address] DISCHARGE INSTRUCTION Observed: 11/05/2018 Status: F Source: [place] 4:45 PM [facility] REPOSITORY [facility] Medical Records Department [address] [place] [address] Instructions for Home/Discharge Instructions 11/05/18 1644 MR#: [id number] Acct: [id number] Name: JANETT VUONG Rep #: [id number] : 1950 68 From: Ross Ochoa MD PCP: Sampson De La Vega MD Status: REG [facility] Discharge Diet: Light diet - advance as tolerated Discharge Activity: Return to Normal Activity Call your doctor if your incision/area has: Continuous Slow Oozing, Sudden Increased Bleeding, Increased Pain/ Swelling, Increased Redness Call your doctor if you observe: Fever of 101 or Higher Suture Line Care: Avoid Pulling/Pushing, Avoid Pinching/Bending Allergies/Adverse Reactions: Allergies atorvastatin [From Lipitor] Allergy (Severe, Verified 10/27/18 10:47) Muscle aches simvastatin [From Zocor] Adverse Reaction (Severe, Verified 10/27/18 10:47) Hives Medications to take at Discharge Aspirin [Aspirin, Baby] 81 mg PO DAILY@0800 03/04/14 Nitroglycerin [Nitrostat] 0.4 mg SUBLINGUAL Q5M PRN 03/04/14 clopidogrel 75 mg tablet 75 mg PO DAILY #90 tab 01/09/18 rosuvastatin 5 mg tablet 5 mg PO QHS #90 tab 04/08/18 metformin 500 mg tablet 500 mg PO BID 09/17/18 metoprolol succinate ER 25 mg tablet,extended release 24 hr 25 mg PO DAILY 90 Days #90 tab 09/17/18 tamsulosin 0.4 mg capsule 0.4 mg PO BID 30 Days #30 cap 09/17/18 Amoxicillin 875 mg PO BID 10/27/18 Ciprofloxacin [Cipro] 500 mg PO BID #14 tablet 11/05/18 The following prescriptions were given: Ciprofloxacin [Cipro] 500 mg PO BID #14 tablet Primary Care Physician: Sampson De La Vega MD [Primary Care Provider] - Test Results: Test results from this visit will be discussed in further detail at your follow-up appointment, if applicable. Please Follow Up With: Ross Ochoa MD When: in 2 weeks, please call to make an appointment. Proposed Discharge Date: 11/06/18 11/05/18 3674 <Electronically signed by Ross Ochoa MD> Date Ross Ochoa MD CC: Sampson De La Vega MD Signed OPERATIVE REPORT Observed: 11/05/2018 Status: F Source: [place] 4:42 PM [facility] REPOSITORY [facility] Medical Records Department [address] [place] [address] Operative Report 11/05/18 1639 MR#: [id number] Acct: [id number] Name: JANETT VUONG Rep #: [id number] : 1950 68 From: Ross Ochoa MD PCP: Sampson De La Vega MD Status: REG [facility] Y Location: [place] [address] Report of Operation Date of Procedure: 11/05/18 Pre-Operative Diagnosis: 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, BPH with obstruction Post-Operative Diagnosis: Same Surgery/Procedure Performed:: transurethral resection of a bladder tumor 2 cm in size in the patient's lateral wall, transurethral section of the prostate for BPH and obstruction Description of Surgical Findings:: 68-year-old male known history of BPH with obstruction we are plan to do surgery to alleviate the obstruction and during a cystoscopy was found to have a bladder tumor so at this point we plan to proceed with a resection of this bladder tumor at the same time we will also then proceed with a resection of the prostate for obstruction atonic bladder and poor emptying. The patient understands the risk of anesthesia risk of bleeding infection small risk of stricture formation and incontinence. Procedure note patient was taken back to the operating room after smooth induction of general anesthesia he was placed supine on the table in dorsal lithotomy position the penis and testicles are prepped and draped in usual sterile fashion went into the bladder with a 24 Vietnamese noncontinuous flow resectoscope inspected the entire bladder and the patient's right lateral wall there was a noninvasive appearing bladder tumor that was about 2 cm in size on the lateral wall this was resected down to the lamina propria very minimal muscle was used and resection as it was not invasive and after completely resecting his bladder tumor all the chips were Ellik out and handed off as a specimen separately. I then went to the prostate he had a short length prostate was obstructed with a high bladder neck and lateral tissue the bladder neck was resected the lateral tissue was resected after resecting this tissue did a flow test had a wide open flow and then I obtained hemostasis all the chips were Ellik out the patient's anesthetic is currently being reversed and is taken back to PACU good condition we put a 22 Vietnamese catheter into the bladder continues bladder irrigation for overnight stay. Type of Anesthesia:: General Drains: [address] - Admit VTE Documentation VTE Present on Admission: No VTE Mechan Device Prophylaxis: SCD's 11/05/18 1642 <Electronically signed by Ross Ochoa MD> Date Ross Ochoa MD CC: Sampson De La Vega MD; Ross Ochoa MD Signed BLADDER TUR Observed: 11/05/2018 Status: F Source: [place] 2:35 PM [facility] REPOSITORY Patient: JANETT VUONG : 1950 (68/M) Acct Num: [id number] Phys: Don PACE,Ross Acuña Unit Num: [id number] Loc: [facility] Specimen: [id number] Received: 11/06/18700 Spec Type: TURB TISSUES 1 TISSUES: A. Urinary bladder, NOS B. Prostate, NOS COMMENT A. BLADDER CANCER (TUR) SUMMARY: Procedure - TURBT Histologic type - urothelial (transitional cell) carcinoma Associated epithelial lesions - none identified Histologic grade - low grade (WHO) Tumor configuration - papillary Detrusor muscle - not present in biopsy Lymph-Vascular invasion - not identified Microscopic extent of tumor - noninvasive papillary carcinoma Additional pathologic findings - mild chronic inflammation. The above summary is in compliance with [employer] of [place] [employer] (CAP) Cancer Protocols Checklist and [place] Joint Committee on Cancer (AJCC), Staging Manual, 8th Ed. GROSS DESCRIPTION A - Received in fixative is one container labeled with the patient's name and designated bladder tumor. The specimen consists of a piece of garcía soft tissue measuring 0.5 x 0.4 x 0.2 cm. The specimen is totally submitted in one cassette. B - Received is one container labeled with the patient's name and designated prostate tissue. The specimen consists of multiple irregular fragments of pink-garcía, rubbery, soft tissue that in aggregate weigh 2 gm and measure in aggregate 5 x 3 x 0.3 cm. The entire specimen is submitted in two cassettes. / SJ:kristine 11/06/18 TC:0 CPT: 23039, 29634 HEADER OPERATION: Cysto, TUR bladder, Olympus, TUR prostate, Olympus PRE-OP DIAGNOSIS: Bladder tumor, benign prostatic hypertrophy TISSUE SUBMITTED: A - Bladder tumor, B - Prostate tissue MICROSCOPIC DESCRIPTION Slides are reviewed. MICROSCOPIC DIAGNOSIS A. Urinary bladder, TUR: Papillary urothelial carcinoma. See cancer checklist below. B. Prostate, transurethral resection: Mild chronic inflammation. AM:rg 11/07/18 Signed Renny Ciro, DO 11/07/18 <signature on file> Performed By: #### PBLB #### [facility] [address] [place], [address] BEDSIDE GLUCOSE Collected: 11/05/2018 Status: F Source: [place] 12:28 PM [facility] REPOSITORY TYPE CODE TESTS RESULT OUT OF REFERENCE UNITS RANGE LAB L501.080 70-110 mg/dL High BEDSIDE GLU 137 Result Comment: MANAGEMENT OF PATIENT CARE PER NURSING PROTOCOL Performed By: #### L501.080 #### [facility] Point of Care [address] [place] [address] 12 LEAD ELECTROCARDIOGRAM Observed: 10/28/2018 Status: F Source: [place] 9:42 AM [facility] REPOSITORY [facility] Cardiovascular Services [address] [place] [address] EKG - [facility] 10/27/18 1109 MR#: [id number] Acct: [id number] Name: JANETT VUONG Rep #: [id number] : 1950 68 From: Xavi Brody MD Attending Dr: Ross Ochoa MD Status: PRE [facility] Ordering Dr: Js Barrios MD Date: 10/27/18 Location: [facility] Sex: M C Admitted: Test Reason : Blood Pressure : / mmHG Vent. Rate : 069 BPM Atrial Rate : 069 BPM P-R Int : 148 ms QRS Dur : 098 ms QT Int : 372 ms P-R-T Axes : 035 002 033 degrees QTc Int : 398 ms Normal sinus rhythm Possible Inferior infarct , age undetermined Abnormal ECG Confirmed by XAVI BRODY MD ([id number]), news video editor DESTINI GAVIRIA ([id number]) on 10/28/2018 9:41:34 AM Referred By: Ross Ochoa Confirmed By:XAVI BRODY MD 10/28/18 0941 Date Xavi Brody MD CC: Js Barrios MD; Sampson De La Vega MD; Ross Ochoa MD Date Dictated: 10/27/181108 Date Transcribed: 10/27/181108 Railway Switchman: Signed PACEMAKER CHECK Observed: 09/25/2018 Status: F Source: [place] 9:22 AM [facility] REPOSITORY [facility] [address] [place] [address] Pacemaker Check Date of Service: 09/23/18 1537 MR#: [id number] Acct: [id number] Name: JANETT VUONG Rep #: [id number] : 1950 From: Nalini Moncada Age/Sex: 68/M Location[place] [facility] Status: Signed Comments Summary Comments: Written and verbal ILR implant instructions given to patient. All questions answered. Scheduled patient with Hospital transportation to bring and take home on day procedure 10/06/19. Device Device Date Interviewed: 09/23/18 Follow-up Location: in office Interview Reason: scheduled follow up Billing Codes Nurse, Teaching, Wound Ck (no charge): Yes Assessment AND Plan Problems 1. Near syncope R55 2. Dizziness R42 Orders Orders: 09/23/18 1541 <Electronically signed by Nalini Moncada > Date Nalini Moncada 09/25/18 0922<Electronically signed by Xavi Brody MD> Cosigner Signature: Date (if applicable) Xavi Brdoy MD CC: CBC-COMPLETE BLOOD CNT Collected: 09/23/2018 Status: F Source: [place] NO DIFF 10:08 AM [facility] REPOSITORY TYPE CODE TESTS RESULT OUT OF RANGE REFERENCE UNITS LAB L100.1000 4.4-11.0 K/mm3 Normal WBC 6.9 LAB L100.1200 4.6-6.2 M/mm3 Normal RBC 4.78 LAB L100.1300 13.0-16.5 g/dl Normal HGB 14.2 LAB L100.1400 40-54 % Normal HCT 41.2 LAB L100.1500 80-94 fL Normal MCV 86.2 LAB L100.1600 27.0-32.0 pg Normal MCH 29.7 LAB L100.1700 32-36 g/gl Normal MCHC 34.5 LAB L100.1810 11.6-14.6 % Normal RDW CV 12.8 LAB L100.1820 35.1-43.9 fl Normal RDW SD 39.5 LAB L100.1900 150-450 K/mm3 Normal PLT 216 LAB L100.2000 6.2-12.0 fl Normal MPV 9.7 Performed By: #### L100.0500 #### [facility] [address] [place], [address] BASIC METABOLIC Collected: 09/23/2018 Status: F Source: [place] PROFILE (BMP) 10:08 AM [facility] REPOSITORY TYPE CODE TESTS RESULT OUT OF RANGE REFERENCE UNITS LAB L501.0100 74-106 mg/dL High GLU 112 Result Comment: Fasting Glucose result from 100 to 125 mg/dL suggests IMPAIRED HOMEOSTASIS per A.D.A. criteria. Please note revised GLUCOSE reference range effective 2017. LAB L501.1000 7-18 mg/dL Normal BUN 13 LAB L501.1100 0.70-1.30 mg/dL Normal CREAT,SERUM 0.90 Result Comment: The validity of the calculated GFR AND GFRAA in patients over 70 years has not been determined. Clinical correlation is essential. LAB L501.1110 >60 mL/min Normal EST GFR 89 Result Comment: Non- GFR Calc LAB L501.1115 >60 mL/min Normal EST GFR - AA 108 Result Comment: GFR Calc LAB L501.1300 10-20 RATIO Normal BUN/CRE 14.4 LAB L501.2200 8.5-10.1 mg/dL CA Normal 9.0 LAB L501.5300 136-145 mmol/L NA Normal 136 LAB L501.5600 3.5-5.1 mmol/L K Normal 4.5 LAB L501.5900 98-107 mmol/L CL Normal 103 LAB L501.6100 21.0-32.0 mmol/L Normal CO2 28.0 LAB L501.6200 5-15 Normal GAP 5 Performed By: #### L500.2500 #### [facility] [address] [place], [address] CARDIOLOGY VISIT Observed: 09/18/2018 Status: F Source: [place] REPORT 7:31 AM [facility] REPOSITORY [facility] [address] [place] [address] OFFICE VISIT Date of Service: 09/17/18 MR#: [id number] Acct: [id number] Name: JANETT VUONG Rep #: [id number] : 1950 Provider: Juliet Enrique Age/Sex: 68/M Location[place] [facility] [place] Status: Signed HPI HPI Chief Complaint: Follow up Details: JANETT VUONG, is a 68 M who presents to the office today for a cardiovascular follow-up for his recent syncopal episode in which he fell and had a stable right-sided pleural effusion and left-sided rib fracture. Patient does have a history of coronary artery disease with angioplasty of his LAD in 2003. He also has a history of hyper lipidemia and tobacco abuse. He has not returned to work yet, he recently established with Dr. De La Vega. He was recently diagnosed with Diabetes. PCP switched from atenolol to metoprolol. He has not had any near syncope/lightheadedness/dizziness or syncope. He had not felt any palpitations. He has not had any chest pain/heaviness/tightness. He does not have any worsening SOB. He does not have have any edema. A 30-day event monitor did demonstrate some questionable paroxysmal atrial fibrillation and a 4 beat run of ventricular tachycardia. Patient was not symptomatic with this. Intake Vital Signs09/17/18 Blood Pressure 130/80 H 09/17/18 Height 5 ft 10 in 09/17/18 Weight: 191 lb 09/17/18 Body Mass Index (BMI) 27.3 09/17/18 Blood Pressure 138/82 H 09/17/18 Blood Pressure Location Lt brachial Intake Visit Reasons: 6 wk FU Hazardous Substances Engineer Required: No Accompanied by: none Is patient in pain?: No Allergies atorvastatin [From Lipitor] Allergy (Severe, Verified 09/17/18 12:59) Muscle aches simvastatin [From Zocor] Adverse Reaction (Severe, Verified 09/17/18 12:59) Hives Medications Aspirin [Aspirin, Baby] 81 mg PO DAILY@0800 03/04/14 [History Confirmed 09/17/18] Nitroglycerin [Nitrostat] 0.4 mg SUBLINGUAL Q5M PRN 03/04/14 [History Confirmed 09/17/18] clopidogrel 75 mg tablet 75 mg PO DAILY #90 tab 01/09/18 [Rx Confirmed 09/17/18] rosuvastatin 5 mg tablet 5 mg PO QHS #90 tab 04/08/18 [Rx Confirmed 09/17/18] metformin 500 mg tablet 500 mg PO BID 09/17/18 [History Confirmed 09/17/18] metoprolol succinate ER 25 mg tablet,extended release 24 hr PO 90 Days #90 tab 09/17/18 [History Confirmed 09/17/18] tamsulosin 0.4 mg capsule PO 30 Days #30 cap 09/17/18 [History Confirmed 09/17/18] PFSH Medical History Essential hypertension (Chronic) Atherosclerosis of wiyot coronary artery of wiyot heart without angina pectoris (Chronic) Hyperlipidemia (Chronic) Headache (Resolved) Myocardial infarction, inferior wall (Resolved 1994) Surgical History History of left heart catheterization (Chronic) Postsurgical percutaneous transluminal coronary angioplasty (PTCA) status (Chronic) History of appendectomy (Resolved) History of tonsillectomy (Resolved) Family History Father CAD (coronary artery disease) Hx CABG Diabetes Myocardial infarction Mother Breast cancer CVA (cerebral vascular accident) Sister Cancer Pancreatic cancer Diabetes Brother Myocardial infarction, Onset Age: 54 Other Family history of CVA Social History Smoking Status: Current every day smoker alcohol intake: current alcohol intake frequency: a few times a week Alcohol type: hard liquor, beer substance use type: does not use caffeine: Yes Type: coffee Number of servings: 5 what type of physical activity do you participate in: none seatbelt use: always do you feel safe at home: Yes ROS Const Const: Negative for weakness, fatigue, fever(s) or headache(s) Eyes Eyes: Negative for blind spots, loss of peripheral vision or transient loss of vision ENT ENT: Negative for headache(s), dizziness, tinnitus or Nosebleed/epistaxis Cardio Chest Pain: No Palpitations: No Edema: None Muscle aches with walking: None Resp Respiratory: Negative for SOB with activity, SOB at rest, SOB orthopnea\SOB lying down or Cough GI GI: Negative nausea, vomiting, heartburn or vomiting blood/hematemesis : Negative for hematuria Musc Musc: Negative for muscle aches/ myalgia Neuro Neuro: Negative for weakness, headache(s), dizziness, near syncope, syncope, lightheadedness or orthostatic symptoms Ady Hematologic/Lymphatic: Negative for easy bleeding Endo Endo: Negative for fatigue Cardiology Exam Const Appearance: cooperative, no acute distress and well developed Orientation: alert, awake and oriented x3 Head Head: normocephalic and atraumatic Mouth: moist mucous membranes Eyes General: appearance normal, both eyes and all related structures Conjunctivae: conjunctivae normal Pupils: PERRL EOM: EOM intact bilaterally Neck Neck: normal visual inspection, no lymphadenopathy and no JVD Carotids: Negative bruit Neck Mass: Negative Neck mass Chest Chest inspection: normal inspection of the chest and symmetric chest movement Auscultation: Bilateral: Clear to Auscultation Cardio Palpation: normal PMI Rate: regular rate Rhythm: regular rhythm Heart sounds: S1 normal and S2 normal; negative rub, gallop or murmur GI GI: normal to inspection, soft, no hepatosplenomegaly and bowel sounds present; negative tender Neuro General: alert, awake, oriented x3, CN's II-XI intact bilaterally and moves all extremities Extremities Pulses: Normal: Right Posterior Tibial Pulse, Left Posterior Tibial Pulse, Right Radial Pulse, Left Radial Pulse Lower Extremity Edema: None: Bilateral Psych Psychological: normal affect Supplemental Info Echocardiogram in 2016 demonstrates an ejection fraction of 55%. Regional wall motion abnormalities noted. RVSP 37 mmHg. No changes when compared to 2010. Carotid u/s in 2018 demonstrated Mild (<50%) stenosis right extracranial internal carotid. Moderate (50-69%) stenosis left extracranial internal carotid. Flow within the vertebral arteries is antegrade bilaterally. Assessment AND Plan 1. Near syncope R55 Plan - KEYSHAWN Orta Patient has not had any further episodes of near syncope. However with 30-day event monitor with questionable atrial fibrillation and a short run of ventricular tachycardia would like to place a loop recorder to further evaluate for arrhythmias that could potentially cause syncope. Will have his loop recorder scheduled for the near future. After his loop recorder is placed will start him on an anticoagulant. Plan would be to discontinue his Plavix when he starts his anticoagulant. Orders Orders: 2. Essential hypertension I10 Plan - KEYSHAWN Orta Blood pressure is adequately controlled. Will not make any adjustments. 3. Atherosclerosis of wiyot coronary artery of wiyot heart without angina pectoris I25.10 S/P PTCA of LCX in 1994; PTCA/Stent to LAD in February 2004; Plan - KEYSHAWN Orta Stable, from a cardiac standpoint patient does not have any symptoms of angina. We recommend that they continue with current aggressive medical management and risk factor modification. Plan Detail Other Orders Orders: Other Medications New: Additional Comments - KEYSHAWN Orta The above patient was discussed with Dr. Brody, he agrees with plan of care. Thank you for allowing us to participate in patient's plan of care, if you have any questions please do not hesitate to call. This note was generated using a voice recognition system and there may be incorrect words, spelling or punctuation errors that were not noted when reviewing the office note prior to saving. Follow Up 09/17/18 (please schedule for teaching and loop recorder placement.) 09/17/18 (Move f/u with Dr. Brody to 4 months- thanks) Coding Level of Care Code Off vis,est,level 4 Diagnoses Near syncope R55 Essential hypertension I10 Atherosclerosis of wiyot coronary artery of wiyot heart without angina pectoris I25.10 Coding Level of Care Code Off vis,est,level 4 Diagnoses Near syncope R55 Essential hypertension I10 Atherosclerosis of wiyot coronary artery of wiyot heart without angina pectoris I25.10 09/17/18 1409 <Electronically signed by Juliet M Enrique PA> Date Juliet MAHAJAN 09/18/18 0731<Electronically signed by Xavi Brody MD> Cosigner Signature: Date (if applicable) Xavi Brody MD CC: Sampson De La Vega MD KIDNEY AND BLADDER Observed: 09/09/2018 Status: F Source: [place] 9:12 AM [facility] REPOSITORY [facility] Imaging Services [address] [place] [address] Kidney and Bladder MR#: [id number] Acct: [id number] Name: JANETT VUONG Rep #: [id number] : 1950 [facility] From: Steve Guevara MD PCP: Sampson De La Vega MD Status: REG CLI Study: Kidney and Bladder Date of Exam: 09/09/18 Exam# [id number] Ordering Dr: Sampson De La Vega MD STUDY: RENAL ULTRASOUND - COMPLETE REASON FOR EXAM: Male, 68 years old. Incomplete bladder emptying TECHNIQUE: Ultrasound evaluation of the kidneys was performed with real-time and static goetz-scale imaging. COMPARISON: None. FINDINGS: RIGHT KIDNEY: Normal location of the right kidney, which is normal in size. The right kidney measures 10.0 x 4.7 x 5.0 cm. There is a normal cortex of the right kidney. The renal cortex measures 1.8 cm. Anechoic renal cyst with posterior acoustic enhancement of the inferior right kidney measures 1.3 cm, compatible with a simple cyst. There are no right renal calculi. There is no right hydronephrosis. DISTAL RIGHT URETER: There is non-visualization of the distal right ureter. There is no demonstrated right ureterovesical junction calculus. There is a visualized right ureteral jet. LEFT KIDNEY: Normal location of the left kidney, which is normal in size. The left kidney measures 11.1 x 6.5 x 4.9 cm. There is a normal cortex of the left kidney. The renal cortex measures 1.2 cm. There is no left renal mass or cyst. There are no left renal calculi. There is no left hydronephrosis. DISTAL LEFT URETER: There is non-visualization of the distal left ureter. There is no demonstrated left ureterovesical junction calculus. There is a visualized left ureteral jet. BLADDER: The distended urinary bladder has a volume of 880 ml. The empty urinary bladder has a volume of 710 ml. There is a normal wall thickness of the distended urinary bladder. There is no demonstrated mass within the urinary bladder. There are no demonstrated bladder calculi. There is a small urinary bladder diverticulum (right posterior). US/Kidney and Bladder IMPRESSION: 1. No hydronephrosis. 2. Significant postvoid residual volume (greater than 700 mL). 3. Small right posterolateral urinary bladder diverticulum. 4. Simple right renal cyst. Electronically Signed: Steve Guevara MD at 19:08 EST , Service support , CC: Sampson De La Vega MD Railway Switchman: Signed HEMOGLOBIN A1C Collected: 08/18/2018 Status: F Source: [place] 1:49 PM [facility] REPOSITORY Order Comment: PLEASE ADD A1C TO BLOOD WORK DONE 08/15/18 PER TYPE CODE TESTS RESULT OUT OF RANGE REFERENCE UNITS LAB L501.9985 4.2-6.3 % High HGB A1C 6.9 Performed By: #### L501.9985 #### [facility] [address] [place], [address] URINALYSIS, COMPLETE Collected: 08/18/2018 Status: F Source: [place] 12:00 AM [facility] REPOSITORY Order Comment: How was Urine Obtained? CLEAN CATCH TYPE CODE TESTS RESULT OUT OF RANGE REFERENCE UNITS LAB L400.3000 Yellow COLOR Normal Yellow LAB L400.3050 Clear Normal CLARITY Clear LAB L400.3200 Normal mg/dl High 50 GLUCOSE, UR LAB L400.3300 Negative mg/dL Normal BILIRUBIN URINE Negative LAB L400.3400 Negative mg/dl Normal KETONE UR Negative LAB L400.3465 1.002-1.030 Normal SP.GR. DIPSTX 1.010 LAB L400.3550 5.0 - 8.0 pH UR Normal 6.5 LAB L400.3600 Negative mg/dl PROT Normal DIPSTX Negative LAB L400.3700 Normal mg/dl Normal UROBILI Normal LAB L400.3750 Negative Normal NITRITE UR Negative LAB L400.3780 Negative /ul High 10 OCCULT BLOOD-UR LAB L400.3800 Negative /ul High LEUK 25 ESTERASE LAB L400.4050 0-5 /hpf WBC Normal 0-5 SEEN LAB L400.4100 0-5 /hpf 0 Normal RBC-UA SEEN LAB L400.4150 0-5 /hpf SQUAM 0 Normal EPI SEEN LAB L400.4300 None Seen /hpf 0 Normal BACTERIA SEEN LAB L400.4350 <or=2+ /hpf 0 Normal MUCUS, URINE SEEN Performed By: #### L400.0001 #### [facility] [address] [place], [place], [address] CBC W/DIFF, AUTOMATED Collected: 08/15/2018 Status: F Source: [place] 1:49 PM [facility] REPOSITORY TYPE CODE TESTS RESULT OUT OF RANGE REFERENCE UNITS LAB L100.1000 4.4-11.0 K/mm3 Normal WBC 7.1 LAB L100.1200 4.6-6.2 M/mm3 Normal RBC 4.82 LAB L100.1300 13.0-16.5 g/dl Normal HGB 14.2 LAB L100.1400 40-54 % Normal HCT 42.4 LAB L100.1500 80-94 fL Normal MCV 88.0 LAB L100.1600 27.0-32.0 pg Normal MCH 29.5 LAB L100.1700 32-36 g/gl Normal MCHC 33.5 LAB L100.1810 11.6-14.6 % Normal RDW CV 13.5 LAB L100.1820 35.1-43.9 fl Normal RDW SD 42.9 LAB L100.1900 150-450 K/mm3 Normal PLT 325 LAB L100.2000 6.2-12.0 fl Normal MPV 10.1 LAB L100.2100 47-70 % Normal NEUT% 61.7 LAB L100.2200 19-41 % Normal LY% 23.4 LAB L100.2300 0-10 % Normal MONO% 9.0 LAB L100.2400 0-5 % High EO% 5.2 LAB L100.2500 0-1 % Normal BASO% 0.4 LAB L100.2550 0.0-0.9 % Normal IM GRAN % 0.300 Result Comment: IG% - Immature Granulocytes (promyelocytes, myelocytes and metamyelocytes) > 1% indicates that a LEFT SHIFT is Present. LAB L100.2620 2.0-7.7 X10 3/uL Normal Absolute Neut 4.4 LAB L100.2720 0.83-4.51 X10 3/ul Normal Absolute Lymph 1.66 Performed By: #### L100.0100 #### [facility] [address] [place], [address] COMPREHENSIVE METABOLIC Collected: 08/15/2018 Status: F Source: [facility] 1:49 PM [facility] REPOSITORY TYPE CODE TESTS RESULT OUT OF RANGE REFERENCE UNITS LAB L501.0100 74-106 mg/dL High GLU 137 Result Comment: Fasting Glucose result greater than or equal to 126 mg/dL suggests DIABETES MELLITUS per A.D.A. criteria. Please note revised GLUCOSE reference range effective 2017. LAB L501.1000 7-18 mg/dL Normal BUN 16 LAB L501.1100 0.70-1.30 mg/dL Normal CREAT,SERUM 1.07 Result Comment: The validity of the calculated GFR AND GFRAA in patients over 70 years has not been determined. Clinical correlation is essential. LAB L501.1110 >60 mL/min Normal EST GFR 74 Result Comment: Non- GFR Calc LAB L501.1115 >60 mL/min Normal EST GFR - AA 89 Result Comment: GFR Calc LAB L501.1300 10-20 RATIO Normal BUN/CRE 15.0 LAB L501.1500 6.4-8.2 g/dL T Normal PROT 7.7 LAB L501.1800 3.2-5.0 g/dL Normal ALB 3.8 LAB L501.1950 2.2-4.2 g/dL Normal GLOB 3.9 LAB L501.2000 0.9-2.4 RATIO Normal A/G 1.0 LAB L501.2200 8.5-10.1 mg/dL CA Normal 9.1 LAB L501.4100 15-37 U/L Low AST 14 LAB L501.4305 45-117 U/L High ALK P 143 LAB L501.4405 16-61 U/L Normal ALT 40 LAB L501.4600 0.20-1.00 mg/dL T Normal BILI 0.60 LAB L501.5300 136-145 mmol/L NA Normal 140 LAB L501.5600 3.5-5.1 mmol/L K Normal 3.8 LAB L501.5900 98-107 mmol/L CL Normal 101 LAB L501.6100 21.0-32.0 mmol/L Normal CO2 29.0 LAB L501.6200 5-15 Normal GAP 10 Performed By: #### L500.4050, L500.4100, L501.9520, L501.9910 #### [facility] [address] [place], [place], [address] LIPID PROFILE Collected: 08/15/2018 Status: F Source: [place] 1:49 PM [facility] REPOSITORY TYPE CODE TESTS RESULT OUT OF RANGE REFERENCE UNITS LAB L501.4900 200 mg/dL Normal CHOL 155 Result Comment: <200 mg/dL Desirable 200-240 mg/dL Borderline >240 mg/dL High Risk LAB L501.5000 mg/dL Normal TRIG 160 Result Comment: The drugs N-Acetylcysteine and Metamizole may falsely depress this assay. Serum Triglycerides Reference Interval Normal <150 mg/dL Borderline high 150 - 199 mg/dL High 200 - 499 mg/dL Very High > or = 500 mg/dL LAB L501.6400 mg/dL Normal HDL 48 Result Comment: The drugs N-Acetylcysteine and Metamizole may falsely depress this assay. Reference Range HDL <40 mg/dL Low HDL Cholesterol HDL >or= 60 mg/dL High HDL Cholesterol LAB L501.6500 0-130 mg/dL Normal LDL 75 LAB L501.6600 5-40 mg/dL Normal VLDL 32 Performed By: #### L500.4050, L500.4100, L501.9520, L501.9910 #### [facility] [address] [place], [address] THYROID STIM HORMONE Collected: 08/15/2018 Status: F Source: [place] (TSH) 1:49 PM [facility] REPOSITORY TYPE CODE TESTS RESULT OUT OF RANGE REFERENCE UNITS LAB L501.9520 0.358-3.74 uIU/mL Normal TSH 1.29 Performed By: #### L500.4050, L500.4100, L501.9520, L501.9910 #### [facility] [address] [place], [address] PSA,TOTAL - ANNUAL Collected: 08/15/2018 Status: F Source: [place] SCREEN 1:49 PM [facility] REPOSITORY TYPE CODE TESTS RESULT OUT OF RANGE REFERENCE UNITS LAB L501.9910 0.00-4.00 ng/mL Normal PSA,TOT 0.53 SCREEN Result Comment: This test was performed using the TPSA assay method for the [employer] chemistry system. Values obtained with different assay methods cannot be used interchangably. When changing PSA assays in the course of monitoring a patient, additional sequential testing should be carried out to confirm baseline values. Performed By: #### L500.4050, L500.4100, L501.9520, L501.9910 #### [facility] [address] [place], [place], [address] VITAMIN D,25 HYDROXY Collected: 08/15/2018 Status: F Source: [place] 1:49 PM [facility] REPOSITORY TYPE CODE TESTS RESULT OUT OF RANGE REFERENCE UNITS LAB L506.1000 29.95-100.01 ng/mL Normal Vitamin D 31.6 25-OH Result Comment: Vitamin D 25(OH) Status Range Deficiency <20 ng/mL (50nmol/L) Insuffciency 20 - 30 ng/mL (50 - 75 nmol/L) Sufficiency 30 - 100 ng/mL (75 - 250 nmol/L) Toxicity >100 ng/mL (>250 nmol/L) Performed By: #### L506.1000 #### [facility] [address] [place], [address] CAROTID DUPLEX Observed: 08/13/2018 Status: F Source: [place] ULTRASOUND 8:28 AM [facility] REPOSITORY [facility] Cardiovascular Services [address] [place] [address] Carotid Duplex Ultrasound 08/11/18 0936 MR#: [id number] Acct: [id number] Name: JANETT VUONG Rep #: [id number] : 1950 68 From: Kenny Watkins MD Attending Dr: Juliet Enrique Status: REG CLI Ordering Dr: Juliet Enrique PA Date: 08/11/18 Location: CVS Sex: M C Admitted: Reason For Study: Syncope Rt. Velocities/BP Lt. Velocities/BP Prox CCA 108/19.9 cm/sec. Prox CCA 102/17.3 cm/sec. Mid CCA 83.3/17 cm/sec. Mid CCA 105/23.6 cm/sec. Dist CCA 75/17 cm/sec. Dist CCA 84.1/17.3 cm/sec. Prox ICA 66.3/22.3 cm/sec. Prox ICA 167/53 cm/sec. Mid ICA 70.4/23.5 cm/sec. Mid ICA 145/31.4 cm/sec. Dist ICA 70.4/24 cm/sec. Dist ICA 106/17 cm/sec. Rt. ICA/CCA = 0.85. Lt. ICA/CCA = 1.64. Prox ECA 81.5/8.79 cm/sec. Prox ECA 101/12.6 cm/sec. Rt. Vert. 35.9/10.2 cm/sec. Lt. Vert. 62.7/15.8 cm/sec. Right Extracranial There is intimal thickening but no significant atherosclerotic plaque noted in the right common carotid artery. There is intimal thickening but no significant atherosclerotic plaque noted in the right internal carotid artery. There is intimal thickening but no significant atherosclerotic plaque noted in the right external carotid artery. Antegrade flow is noted in the right vertebral artery. Left Extracranial There is homogeneous, smooth atherosclerotic plaque noted in the left common carotid artery. There is homogeneous, irregular atherosclerotic plaque noted in the left internal carotid artery. There is intimal thickening but no significant atherosclerotic plaque noted in the left external carotid artery. Antegrade flow is noted in the left vertebral artery. Procedure Carotid Duplex 24028. Exam performed in department. Interpretation Summary Mild (<50%) stenosis right extracranial internal carotid. Moderate (50-69%) stenosis left extracranial internal carotid. Flow within the vertebral arteries is antegrade bilaterally. Ordering Physician: Juliet Enrique Referring Physician: Sampson De La Vega Performed By: Chrissy Minaya RVT and Student 08/13/18826 Date Kenny Watkins MD CC: Sampson De La Veag MD; Juliet Enrique; OUT OF TOWN DOCTOR Date Dictated: 08/11/1836 Date Transcribed: 08/13/18826 Railway Switchman: Signed CARDIOLOGY VISIT Observed: 08/05/2018 Status: F Source: [place] REPORT 11:30 AM [facility] REPOSITORY [facility] [address] [place] [address] OFFICE VISIT Date of Service: 08/04/18 MR#: [id number] Acct: [id number] Name: JANETT VUONG Rep #: [id number] : 1950 Provider: Juliet Enrique Age/Sex: 68/M [place] [facility] [place]: Signed HPI HPI Chief Complaint: Follow up Details: JANETT VUONG, is a 68 M who presents to the office today for presents here today for a hospital follow-up. Patient does have a history of coronary artery disease with angioplasty of his LAD in 2003. He also has a history of hyper lipidemia and tobacco abuse. On July 27 patient fell in the middle the night onto an air conditioning unit while outside on his porch and had a pulmonary contusion. He states that his fall was related to dizziness. He was transferred to [facility] where he was noted to have a stable right-sided pleural effusion and left-sided rib fracture. Pt sts that he was having dizziness. He did not have a syncopal event with this. He did have a syncopal event several months ago. He does have dizziness that this not brought on by anything in particular. This is not just with postional changes. He feels that his heart almost stops with the dizziness. He is currently off of work for 4-6 weeks. This was arranged during his hospital stay. He is trying to establish with a primary care doctor as he currently does not have one. It was requested at the time of his discharge from his hospital stay that he establish with a primary care and follow-up with our in regards to his dizziness. Intake Vital Signs08/04/18 Height 5 ft 10 in 08/04/18 Weight: 181 lb 08/04/18 Body Mass Index (BMI) 25.9 08/04/18 Blood Pressure 140/60 H 08/04/18 Blood Pressure Location Lt brachial Intake Visit Reasons: [facility] ER 10-7, trans to [facility], [place] 10- Allergies atorvastatin [From Lipitor] Allergy (Severe, Verified 07/27/18 04:43) Muscle aches simvastatin [From Zocor] Adverse Reaction (Severe, Verified 07/27/18 04:43) Hives Medications Aspirin [Aspirin, Baby] 81 mg PO DAILY@0800 03/04/14 [History Confirmed 07/27/18] Nitroglycerin [Nitrostat] 0.4 mg SUBLINGUAL Q5M PRN 03/04/14 [History Confirmed 07/27/18] atenolol 50 mg tablet 50 mg PO DAILY #90 tab 01/09/18 [Rx Confirmed 07/27/18] clopidogrel 75 mg tablet 75 mg PO DAILY #90 tab 01/09/18 [Rx Confirmed 07/27/18] rosuvastatin 5 mg tablet 5 mg PO QHS #90 tab 04/08/18 [Rx Confirmed 07/27/18] PFS Medical History Essential hypertension (Chronic) Atherosclerosis of wiyot coronary artery of wiyot heart without angina pectoris (Chronic) Hyperlipidemia (Chronic) Headache (Resolved) Myocardial infarction, inferior wall (Resolved 1994) Surgical History History of left heart catheterization (Chronic) Postsurgical percutaneous transluminal coronary angioplasty (PTCA) status (Chronic) History of appendectomy (Resolved) History of tonsillectomy (Resolved) Family History Father CAD (coronary artery disease) Hx CABG Diabetes Myocardial infarction Mother Breast cancer CVA (cerebral vascular accident) Sister Cancer Pancreatic cancer Diabetes Brother Myocardial infarction, Onset Age: 54 Other Family history of CVA Social History Smoking Status: Current every day smoker alcohol intake: current alcohol intake frequency: a few times a week Alcohol type: hard liquor, beer substance use type: does not use caffeine: Yes Type: coffee Number of servings: 5 what type of physical activity do you participate in: none seatbelt use: always do you feel safe at home: Yes ROS Const Const: Negative for weakness, fatigue, fever(s) or headache(s) Eyes Eyes: Negative for blind spots, loss of peripheral vision or transient loss of vision ENT ENT: Positive for dizziness; negative for headache(s), tinnitus or Nosebleed/epistaxis Cardio Chest Pain: No Palpitations: No Edema: None Muscle aches with walking: None Resp Respiratory: Negative for SOB with activity, SOB at rest, SOB orthopnea\SOB lying down or Cough GI GI: Negative nausea, vomiting, heartburn or vomiting blood/hematemesis : Negative for hematuria Musc Musc: Negative for muscle aches/ myalgia Neuro Neuro: Positive for dizziness, near syncope, lightheadedness and orthostatic symptoms; negative for weakness, headache(s) or syncope Ady Hematologic/Lymphatic: Negative for easy bleeding Endo Endo: Negative for fatigue Cardiology Exam Const Appearance: cooperative, no acute distress and well developed Orientation: alert, awake and oriented x3 Head Head: normocephalic and atraumatic Mouth: moist mucous membranes Eyes General: appearance normal, both eyes and all related structures Conjunctivae: conjunctivae normal Pupils: PERRL EOM: EOM intact bilaterally Neck Neck: normal visual inspection, no lymphadenopathy and no JVD Carotids: Negative bruit Neck Mass: Negative Neck mass Chest Chest inspection: normal inspection of the chest and symmetric chest movement Auscultation: Bilateral: Clear to Auscultation Cardio Palpation: normal PMI Rate: regular rate Rhythm: regular rhythm Heart sounds: S1 normal and S2 normal; negative rub, gallop or murmur GI GI: normal to inspection, soft, no hepatosplenomegaly and bowel sounds present; negative tender Neuro General: alert, awake, oriented x3, CN's II-XI intact bilaterally and moves all extremities Extremities Pulses: Normal: Right Posterior Tibial Pulse, Left Posterior Tibial Pulse, Right Radial Pulse, Left Radial Pulse Lower Extremity Edema: None: Bilateral Psych Psychological: normal affect Supplemental Info Echocardiogram in 2016 demonstrates an ejection fraction of 55%. Regional wall motion abnormalities noted. RVSP 37 mmHg. No changes when compared to 2009. Assessment AND Plan 1. Atherosclerosis of wiyot coronary artery of wiyot heart without angina pectoris I25.10 S/P PTCA of LCX in 1994; PTCA/Stent to LAD in February 2004; Plan - KEYSHAWN Orta Stable, from a cardiac standpoint patient does not have any symptoms of angina. We recommend that they continue with current aggressive medical management and risk factor modification. 2. Pure hypercholesterolemia E78.00; E78.0 Plan - KEYSHAWN Orta Patient will continue with low-dose statin therapy. Lipids from earlier this month demonstrated total cholesterol 165, HDL 54, LDL 96. 3. Near syncope R55 Plan - KEYSHAWN Orta With patient's concerns over near-syncope and dizziness will obtain a carotid ultrasound as well as a 30-day event monitor. Will follow up with patient after testing is complete. Orders Orders: 4. Dizziness R42 Plan - KEYSHAWN Orta With patient's near syncope and syncope will follow up with a carotid ultrasound and a 30-day event monitor. Do not feel that a 24-hour or 48-hour would be beneficial as he was in the hospital for a fall where he was on telemetry for 3 days. Orders Orders: Plan Detail Additional Comments - KEYSHAWN Orta The above patient was discussed with Dr. Brody, he agrees with plan of care. Thank you for allowing us to participate in patient's plan of care, if you have any questions please do not hesitate to call. This note was generated using a voice recognition system and there may be incorrect words, spelling or punctuation errors that were not noted when reviewing the office note prior to saving. Follow Up 6 Weeks (MMM) Coding Level of Care Code Off vis,est,level 4 Diagnoses Atherosclerosis of wiyot coronary artery of wiyot heart without angina pectoris I25.10 Pure hypercholesterolemia E78.00; E78.0 Hyperlipidemia type: pure hypercholesterolemia Near syncope R55 Dizziness R42 Coding Level of Care Code Off vis,est,level 4 Diagnoses Atherosclerosis of wiyot coronary artery of wiyot heart without angina pectoris I25.10 Pure hypercholesterolemia E78.00; E78.0 Hyperlipidemia type: pure hypercholesterolemia Near syncope R55 Dizziness R42 08/04/18 1131 <Electronically signed by Juliet MAHAJAN> Date Juliet MAHAJAN 08/05/18 1130<Electronically signed by Xavi Brody MD> Cosigner Signature: Date (if applicable) Xavi Brody MD CC: CNDS Observed: 07/30/2018 Status: COMPLETED Source: [place] 12:21 PM [facility] REPOSITORY O ID: [id number] Author: Arthur Menchaca Service: Trauma Author Type: Physician Type: Discharge Summaries Filed: 07/30/2018 2:22 PM Note Text: DISCHARGE SUMMARY PATIENT NAME: Janett Vuong Code Status: Not on file Highest Readmission Risk Score: 18 The 30 day readmissions risk score is derived from an internally validated risk model which evaluates patient level characteristics, utilization history, medication orders and lab results up until the day of discharge. Patients with a score of 40 or above are considered highest risk for readmission. Specific patient level drivers will be listed at the bottom of the summary. Admission Information Admission Information ADMIT DATE: 07/27/2018 DISCHARGE DATE: 07/30/2018 MY DOCTORS AND MEDICAL TEAM: My Main Hospital Doctor: Alondar Ortega Primary Care Provider: Roland Farah MD My Medical Team Members: Treatment Team: Attending Provider: Alondra Ortega Consulting: Josiah Herrera Consulting: Romeo Fajardo MY CONDITION AT DISCHARGE: Stable REASON I WAS IN THE HOSPITAL: Treatment of injuries sustained during a fall SUMMARY OF WHAT HAPPENED WHILE I WAS IN THE HOSPITAL: Patient was seen in the ED as a transfer from [facility] as a Level III trauma consult on 07/27/18 after reportedly falling from a porch onto an A/C unit the evening prior. Patient was noted to be on aspirin and plavix secondary to cardiac history. CT scans completed at outside hospital of the chest/abdomen/pelvis revealed acute fractures of left- sided ribs 7-10, and left pulmonary contusion. All other imagine completed determined negative for traumatic injury. Patient was admitted under trauma services for medical management and pain control. The hospital medicine team was consulted as patient described becoming dizzy prior to falling. Patient declined further cardiac/syncope workup. Patient was initially admitted to the SICU and then transferred to the regular nursing floor when determined medically stable to do so. Repeat chest x-rays were completed showing stable appearance and a small amount of pleural effusion (fluid) at the right lung base. Patient remained stable while on the regular nursing floor. Medication adjustments were made to achieve better pain control. Patient tolerated a diet, had preserved urinary function and passed flatus. Patient also worked with the physical and occupational therapy teams who recommended home at discharge based on their assessment. Patient was seen by the trauma attending surgeon and determined medically stable for discharge home 07/30/2018. All of his questions were answered. Recommended follow-ups include with patient's PCP and garageman given syncopal episode. OTHER PROBLEMS/DIAGNOSIS: Active Problems: Fracture three ribs-closed, left, initial encounter Contusion of left lung Resolved Problems: Fall Dizziness OPERATIONS PERFORMED WHILE IN THE HOSPITAL: None IMPORTANT TEST/PROCEDURES: No procedures performed TEST RESULTS NOT AVAILABLE AT THIS TIME: No pending results Discharge Disposition Discharge Disposition: Home With Self Care Activity When You Leave the Hospital Do not bend over at the waist to lift heavy objects No heavy lifting greater than 15 pounds for 4 weeks May bathe and shower No exercise for: 3 weeks No prolonged bedrest, longer than 8 hours in a 24 hour period No walking restrictions Diet Instructions Drink 6 to 8 glasses of fluids per day Other: Heart healthy diet For Pain When You Leave the Hospital If you become constipated, you may use any imuk-rws-rahjarc treatment such as Milk of Magnesia, Sennakot, Prune Juice, Suppositories, etc. in addition to the stool softener/fiber supplement No alcohol or driving while on pain medication Use acetaminophen (Tylenol) as recommended on the bottle Use the dispensed medication (see prescription) You should use an ygkz-ujp-fpbjysg stool softener (Docusate sodium) and/or a fiber supplement (Metamucil, Fiber Con) every day while taking prescribed pain medication Call Your Doctor If Other: Contact your doctor or go to the ED if you develop any worsening shortness of breath, fever, chills, night sweats or worsening pain. As per discussion, rib fracture discomfort is expected to last anywhere from 6-8 weeks but should gradually improve each week. Avoid heavy lifting greater than 15lbs for the next 3-4 weeks. There is an unusual odor from the wound area You have a severe headache You have lightheadedness, fainting, or confusion You have persistent nausea/vomiting over 24 hours Your temperature is greater than 101F Follow Up Appointments Follow-Up Appointment PCP: Please contact your primary care provider and schedule routine follow-up in 2 weeks. When: In 2 weeks Patient/Parents to call for appointment?: Yes Roland Farah [phone] [facility] [address] [facility] [address] Follow-Up Appointment Please contact your garageman and schedule an appointment to discuss your recent hospitalization and dizziness. With: Caridologist When: In 1 week Patient/Parents to call for appointment?: Yes Additional Provider to Provider Information: No notes on file Transitions of Care Critical Issues: Discharge home with self care LABS AND PROCEDURES PENDING AT DISCHARGE: No pending results. FOLLOW-UP APPOINTMENTS ALREADY SCHEDULED WITH A [facility] PROVIDER: No future appointments. ALLERGIES No Known Allergies DISCHARGE MEDICATION: Current Discharge Medication List START taking these medications acetaminophen (TYLENOL) 650 mg Take 650 mg by mouth four times daily. oxyCODONE IR (ROXICODONE) 5 mg Take 5 mg by mouth every 6 hours as needed. Earliest Fill Date: 07/30/18 Qty: 20 tablet Refills: 0 Associated Diagnoses:Fracture three ribs-closed, left, initial encounter guaiFENesin (MUCINEX) 600 mg Take 600 mg by mouth every 12 hours. Qty: 14 tablet Refills: 0 polyethylene glycol 3350 (MIRALAX, GLYCOLAX) 17 g Take 17 g by mouth once daily. senna-docusate (SENNA-S) 1 tablet Take 1 tablet by mouth twice daily. cyclobenzaprine (FLEXERIL) 10 mg Take 10 mg by mouth three times daily as needed for Muscle Spasm. Qty: 21 tablet Refills: 0 Associated Diagnoses:Fracture three ribs-closed, left, initial encounter Cholecalciferol (Vitamin D3) 5,000 Units Take 5,000 Units by mouth once daily. Qty: 30 capsule Refills: 0 CONTINUE these medications which have NOT CHANGED clopidogrel bisulfate(PLAVIX 75 MG TAB) Take one(1) tablet daily. Refills: 0 ATENOLOL 50 MG TAB Take one(1) tablet daily. Refills: 0 rosuvastatin calcium(CRESTOR 5 MG TAB) Take one(1) tablet daily. Refills: 0 nitroglycerin(NITROSTAT 0.4 MG SUBLINGUAL TAB) Place one(1) tablet on tongue as needed for chest pain. If no pain relief call 911. Refills: 0 aspirin(ADULT LOW DOSE ASPIRIN 81 MG TAB, DELAYED RELEASE) Take one(1) tablet daily. Refills: 0 SEE DAILY PROGRESS NOTE FOR PHYSICAL EXAMINATION FINDINGS The patient's risk for 30-day readmission is determined using the following contributing factors: Pt variables contributing to increased readmission risk: 18 Active Medication Orders 11 Most Recent BUN Result 8.5 First Resulted Calcium During Admission 1 Previous ED Visit (6 mos.)? 1 Number of Previous ED Visits (6 mos.) 1 Insurance - Private Coverage 1 Discharge Disposition - Home 1 Active Anticoagulant TIME OF CARE: Discharge Management: I personally spent less than 30 minutes involved in the discharge management of this patient. SIGNATURE: Vadim Richter PA-C PAGER/CONTACT #: DATE: July 30, 2018 TIME: 12:21 PM Patient is awake alert and oriented. He feels much better today and is able to get around well on oral pain meds. Okay to discharge home. CASE MANAGEM Observed: 07/30/2018 Status: COMPLETED Source: [place] 9:20 AM CLINIC OTHER CAMPUS REPOSITORY O ID: [id number] Author: Spenser Sandoval (Sw) Service: Care Management Author Type: Assistant Tennis Coach Type: Care Mgt Progress Note Filed: 07/30/2018 9:27 AM Note Text: CARE MANAGEMENT PROGRESS NOTE SERVICE DATE: 07/30/2018 SERVICE TIME: 9:00 am LOS: 3 days Advanced directives SW was consulted to assist patient in completing advance directives. Patient reported that he would like to review the documents prior to completing them. Sw educated pt on the purpose and use of the documents. SW provided patient with a copy of the documents and a booklet explaining their purpose and use. Patient reported that he would like to look over them with his prior to completing them. SW encouraged patient to ask for sw if he would like to complete the documents. No Further SW needs at this time. 15 MIn SIGNATURE: MARÍA Kovacs PATIENT NAME: Janett Vuong DATE: July 30, 2018 TIME: 9:21 AM PAGER/CONTACT #: [phone] CHEST 2 VIEWS Observed: 07/30/2018 Status: F Source: [facility] 8:18 AM HEALTH SYSTEM REPOSITORY Performed at [facility] APPROVED BY: Emery Reddy MD EXAMINATION: CHEST RADIOGRAPH (2 VIEW FRONTAL & LATERAL) CLINICAL HISTORY: Status post fall. Rib fractures. Hemoptysis. MQ: XC2_5 Comparison: 08/07/2018 RESULT: Lines, tubes, and devices: Overlying telemetry monitor leads. Lungs and pleura: Small right-sided pleural effusion. Stable. Probable atelectasis at the left lung base. Stable. No pneumothorax. Cardiomediastinal silhouette: Normal cardiomediastinal silhouette. Other: Left-sided rib fractures involving the left eighth and ninth ribs at least. IMPRESSION: Stable right-sided pleural effusion. Stable diminished aeration left lung base most likely atelectasis. Left-sided rib fractures. PROGRESS Observed: 07/30/2018 Status: COMPLETED Source: [place] 8:01 AM CLINIC OTHER CAMPUS REPOSITORY O ID: [id number] Author: Vadim Richter (Pa) Service: Trauma Author Type: Physician [employer] Agent Type: Progress Notes Filed: 07/30/2018 8:07 AM Note Text: Trauma Surgery Progress Note SERVICE DATE: 07/30/2018 SUBJECTIVE: Patient doing well this am. Pain is under much better control at this time. Continues to notes productive cough but improved with Mucinex. Denies cp, sob, abd pain, n/v. Passing flatus but no BM. Voiding regularly. Patient notes that he got up with PT and walked the halls and stairs yesterday. Tolerating diet DIET HEART HEALTHY Nausea No Emesis No Flatus Yes Bowel movement No Pain Controlled No Ambulating No OBJECTIVE: Vitals: Temp (24hrs), Av.5 ?C (97.7 ?F), Min:36.4 ?C (97.5 ?F), Max:36.6 ?C (97.9 ?F) BP 125/70 Pulse 83 Temp 36.4 ?C (97.5 ?F) (Oral) Resp 18 Ht 177.8 cm (5' 10) Wt 80.6 kg (177 lb 12.8 oz) SpO2 94% BMI 25.51 kg/m? O2 Therapy: Room Air IANDO: Date 07/29/18699 - 07/30/18 0659 07/30/18 07 - 07/31/18 0659 Shift 7151-3046 7950-7759 8990-7365 24 Hour Total 1532-5093 1945-5315 1422-1416 24 Hour Total I N T A K E PO 360 746 588 7315 PO 360 142 942 8565 Shift Total 360 687 238 9727 O U T P U T Urine 4 4 Void (ml) 4 4 Urine Not Saved. 3 x 1 x 4 x # of BMs Number of BMs 0 x 0 x Shift Total 4 4 Weight (kg) 81.6 81.6 80.6 80.6 80.6 80.6 80.6 80.6 MEDICATIONS Current Facility-Administered Medications: polyethylene glycol 3350 17 g packet (MIRALAX, GLYCOLAX) 17 g ORAL DAILY Cholecalciferol (Vitamin D3) 5,000 Units cap(s) 5,000 Units ORAL DAILY cyclobenzaprine 10 mg tab(s) (FLEXERIL) 10 mg ORAL TID PRN senna-docusate 8.6-50 mg 1 tablet (SENNA-S) 1 tablet ORAL BID aspirin 81 mg chewable tab(s) 81 mg ORAL DAILY clopidogrel 75 mg tab(s) (PLAVIX) 75 mg ORAL DAILY acetaminophen 975 mg tab(s) (TYLENOL) 975 mg ORAL QID HYDROmorphone 0.5 mg injection (DILAUDID) 0.5 mg INTRAVENOUS q 4 H PRN oxyCODONE IR 5-10 mg tab(s) (ROXICODONE) 5-10 mg ORAL q 4 H PRN enoxaparin 30 mg injection (LOVENOX) 30 mg SUBCUTANEOUS BID guaiFENesin 600 mg ER tab(s) (MUCINEX) 600 mg ORAL q 12 H ipratropium-albuterol 3 mL nebulizer solution (DUONEB) 3 mL INHALATION TID metoprolol succinate ER 25 mg tab(s) (TOPROL XL) 25 mg ORAL DAILY nitroglycerin sublingual 0.4 mg tab(s) (NITROQUICK) 0.4 mg SUBLINGUAL PRN 0.9% NaCl 3-5 mL 3-5 mL INTRAVENOUS q 12 H albuterol 2.5 mg /3 mL (0.083 %) 2.5 mg (PROVENTIL) 2.5 mg INHALATION q 4 H PRN ondansetron 4 mg tab(s) (ZOFRAN) 4 mg ORAL q 6 H PRN Or ondansetron (PF) 4 mg injection (ZOFRAN) 4 mg INTRAVENOUS q 6 H PRN Labs: Recent Labs 07/30/18 0416 07/29/18 0355 07/28/18 0400 NA 135* 134* 136 K 4.1 4.2 4.4 CHLOR 101 100 102 CO2 29 28 29 BUN 11 12 13 CREAT 0.85 0.89 0.92 GLUC 132* 135* 153* ANION 9 10 9 CA 8.9 9.4 8.5 MG -- 2.1 2.1 P -- 3.8 2.8 WBC 8.01 12.06* 10.04* HB 13.3* 13.9 13.5* HCT 39.3* 41.1 40.9 PLT 184 181 194 Exam: GENERAL: No distress, Alert. Not appearing acutely ill NEURO: AANDOx3, CN II-XII grossly intact HEENT: normocephalic, atraumatic LUNGS: Unlabored breathing. SpO2 94% on 3L NC. Lungs CTAB. CARDIAC: Regular rate and rhythm as above ABDOMEN: Soft, non-tender, non-distended. Bowel sounds normoactive. EXTREMITIES: WHEAT, No deformities, No edema. Pedal pulses 2+ SKIN: Skin color, texture, turgor normal, No rashes or lesions ASSESSMENT AND PLAN: Active Hospital Problems Diagnosis Date Noted - Fall 07/28/2018 - Dizziness 07/28/2018 - Contusion of left lung 07/28/2018 - Fracture three ribs-closed, left, initial encounter 07/27/2018 68 year old male s/p fall with L 7-10 rib fx - Pain control - scheduled Tylenol, prn Flexeril, OxyIR 5- 10 mg for sever, Dilaudid 0.5 mg breakthrough - will d/c Dilaudid today - Heart healthy diet - DVT ppx: Lovenox, SCDs - Bowel regimen - Senna-S, Miralax - IS, DUONEB, Mucinex, EZPAP - 2-view CXR 07/30 pending - Continue home meds - Hosp Med - patient declined further testing for syncope - Dispo: PT/OT recommending home at discharge. Patient assures that his spouse will help him at home. Needs FMLA ppwk completed. Possible discharge home 07/30/18. Vadim Richter PA-C 07/30/2018 8:05 AM Trauma Service Pager: For questions or concerns Mon-Fri 6a-5p please page [phone]. After 5pm and on Weekends and Holidays, please page [phone] if in ICU or [phone] if on RNF. SIGNATURE: Vadim Richter PA-C PATIENT NAME: Janett Vuong DATE: July 30, 2018 TIME: 8:06 AM Pager: [phone] MDRD GFR Collected: 07/30/2018 Status: F Source: [facility] 4:16 AM HEALTH SYSTEM REPOSITORY TYPE CODE TESTS RESULT OUT OF RANGE REFERENCE UNITS LAB GFRFN(LOINC >60mL/min/1.73m ) 2 eGFR >60 Result Comment: If the patient is , multiply the result by 1.210. Performed By: #### GFR #### [facility] [address] [place] [address] IONIZED CALCIUM Collected: 07/30/2018 Status: F Source: [facility] 4:16 AM HEALTH SYSTEM REPOSITORY TYPE CODE TESTS RESULT OUT OF REFERENCE UNITS RANGE LAB CAION(LOINC 4.43-4.93 mg/dL ) Ionized 4.57 Calcium LAB PHCAI(LOINC 7.320-7.420 ) pH 7.375 LAB CAPH(LOINC) 4.36-4.73 mg/dL Ionized 4.51 Ca,PH7.4 Performed By: #### IONCA #### [facility] [address] [place], [place] [address] HEMOGRAM/DIFF Collected: 07/30/2018 Status: F Source: [facility] 4:16 AM HEALTH SYSTEM REPOSITORY TYPE CODE TESTS RESULT OUT OF REFERENCE UNITS RANGE LAB WBC(LOINC) 4.23-9.07 thou/cmm WBC 8.01 LAB RBC(LOINC) 4.63-6.08 mil/cmm Low RBC 4.48 LAB HGB(LOINC) 13.7-17.5 g/dL Low Hgb 13.3 LAB HCT(LOINC) 40.1-51.0 % Low Hct 39.3 LAB MCV(LOINC) 83.2-95.6 fl MCV 87.7 LAB MCH(LOINC) 25.7-32.2 pg MCH 29.7 LAB MCHC(LOINC 32.3-36.5 % ) MCHC 33.8 LAB RDW(LOINC) 11.6-14.4 % RDW 12.8 LAB RDWSD(LOIN 36.1-45.8 fl C) RDW SD 41.2 LAB PLT(LOINC) 141-365 thou/cmm Platelet 184 LAB MPV(LOINC) 8.7-12.0 fl MPV 10.4 LAB SEG(LOINC) % Seg Neutrophil 74.7 LAB IGRE(LOINC % ) Immature Grans 0.50 LAB LYMPH(LOIN % C) Lymphocyte 12.4 LAB MNO(LOINC) % Monocyte 9.1 LAB EOSIN(LOIN % C) Eosinophil 3.1 LAB BASO(LOINC % ) Basophil 0.2 LAB SEGN(LOINC 1.78-5.38 thou/cmm ) Abs. High Neut (ANC) 5.98 LAB IGAB(LOINC 0.00-0.05 thou/cmm ) Abs Immature Grans 0.04 LAB LYMN(LOINC 0.84-2.85 thou/cmm ) Abs. Lymph 0.99 LAB MONON(LOIN 0.30-0.82 thou/cmm C) Abs. [place] 0.73 LAB EOSN(LOINC 0.04-0.54 thou/cmm ) Abs. Eosin 0.25 LAB BASON(LOIN 0.01-0.08 thou/cmm C) Abs. Baso 0.02 Performed By: #### CBCD1 #### [facility] [address] [place] [address] BASIC PANEL Collected: 07/30/2018 Status: F Source: [facility] 4:16 AM HEALTH SYSTEM REPOSITORY TYPE CODE TESTS RESULT OUT OF REFERENCE UNITS RANGE LAB NA(LOINC) 136-145 mEq/L Low Sodium Blood 135 LAB K(LOINC) 3.5-5.1 mEq/L Potassium Blood 4.1 LAB CL(LOINC) 98-107 mEq/L Chloride Blood 101 LAB CO2(LOINC) 21-32 mEq/L CO2 Blood 29 LAB GLU(LOINC) 70-99 mg/dL Glucose High Blood 132 LAB BUN(LOINC) 7-18 mg/dL BUN Blood 11 LAB CREA(LOINC 0.67-1.17 mg/dL ) Creatinine Blood 0.85 LAB CA(LOINC) 8.5-10.1 mg/dL Calcium Blood 8.9 LAB ANGAP(LOIN 8-16 C) Anion Gap 9 Performed By: #### P8 #### [place] [address] THERAPY NT Observed: 07/29/2018 Status: COMPLETED Source: [place] 4:50 PM CLINIC OTHER CAMPUS REPOSITORY HNO ID: [id number] Author: Jason (PtJason Cervantes Service: Physical Therapy Author Type: Physical Therapist Type: Therapy (PT/OT/Speech/Resp) Filed: 07/29/2018 5:29 PM Note Text: Physical Therapy Evaluation SERVICE DATE: 07/29/2018 SERVICE TIME: 1607 to 1625 ROOM: [id number] Recommended Discharge Disposition: Home Anticipated Discharge Needs: Physical Assist at Home Physical Assist at Home for: Cleaning;Laundry;Meals;Shopping;Transportation PT Recommendations to Nursing: Ambulate without device;To bathroom;In halls Device: No Device PT 6 Clicks Score: 24 Precautions/Activity Restrictions: Lines/Tubes/Drains Precaution/Activity Restriction Comments: 2.5L O2 NC ASSESSMENT : Patient presents with a medically stable condition and presents near baseline level of functional mobility required for safe discharge home. The patient does not require further acute care physical therapy intervention during this hospital admission. Patient description of this fall and previous falls very similar to near-syncope, had one syncopal event at work. Very brief time between prodromal and near-syncope/syncope; occur most frequently with level-changing transfers (such as standing quickly or supine to sitting) but also with ambulation. Patient Disposition at Start of Session: Supine in Bed;Call [facility] in Re[place];Family Present Patient Disposition at End of Session: Call [facility] in Re[place];Family Present (seated EOB) Tolerated Full Session Physical Therapy Problem List: Pain Patient /Caregiver Goals: Go Home PLAN: Treatment Frequency (times per week): Discontinue Therapy Services Reasons Therapy Services Discontinued: Independent in all functional mobility Current admission Plan of Care developed with: Patient TREATMENT INTERVENTIONS: Therapy Diagnosis: Reduced mobility-other Interventions Provided: Evaluation;Therapeutic Activity (52996) $ Evaluation-Low (78186) Billed Units: 1 unit Therapeutic Activity (50684) Treatment Minutes: 5 0 units Skilled Intervention(s): Education with disease process, modifying transfers/mobility to decrease risk of sudden near- and syncope, consulting garageman for possible contributions to recent syncopal and near-syncopal events, mobility safety. Total Timed Code Treatment Minutes: 5 Total Treatment Time (minutes): 18 FUNCTIONAL G CODE: PT 6 Clicks Score: 24 (07/29/18 160) Mobility: Walking and Moving Around Current Status (G8978): CH (07/29/18 160) Mobility: Walking and Moving Around Goal Status (G8979): (07/29/18 160) Mobility: Walking and Moving Around Discharge Status (G8980): (07/29/18 160) Based on clinical assessment and the score on the 6 Clicks Functional Assessment Tool, the G code and corresponding severity modifiers are documented above. SUBJECTIVE: Current Hospital Course: Chart reviewed; Transfer from [facility]. GCS at Scene was 15. States that he got dizzy and fell off of his porch ~3 feet onto his AC unit. Reports prior episodes of dizziness without syncope, but denies CP/SOB or any other symptoms prior to fall. States that he was ambulatory after the fall. CT Chest/Abdomen/Pelvis: Left lower lobe pulmonary contusion. Acute fractures of left ribs 7 through 10. Admit to SICU: High risk for developing pulmonary complications and respiratory failure requiring mechanical ventilation Seen by PT on medical floor. Reason for Physical Therapy Consult : safety assessment s/p traumatic fall Relevant Past Medical History: MD, HTN Active Hospital Problems Diagnosis - Fall - Dizziness - Contusion of left lung - Fracture three ribs-closed, left, initial encounter PAST MEDICAL HISTORY Diagnosis Date - Heart attack (HCC) - High cholesterol - Hypertension PAST SURGICAL HISTORY Procedure Laterality Date - ANGIOPLASTY HX with cardiac stent x1 - APPENDECTOMY HX - TONSILLECTOMY HX Patient Report: Identification verified x2, patient agreeable to therapy. 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 Please see discipline specific clinical documentation flowsheet for complete details for this therapy evaluation/treatment. SIGNATURE: Jason Cervantes PT PATIENT NAME: Janett Vuong DATE: July 29, 2018 TIME: 4:50 PM THERAPY NT Observed: 07/29/2018 Status: COMPLETED Source: [place] 3:11 PM CLINIC OTHER CAMPUS REPOSITORY HNO ID: [id number] Author: Jie Dailey/Roland Sharma Service: Occupational Therapy Author Type: Occupational Therapist Type: Therapy (PT/OT/Speech/Resp) Filed: 07/29/2018 4:45 PM Note Text: Occupational Therapy Evaluation SERVICE DATE: 07/29/2018 SERVICE TIME: 2660 to 5875 ROOM: [id number] Recommended Discharge Disposition: Home Recommended Discharge Disposition Comments: Pt to d/c home with increased assist from Anticipated Discharge Needs: Physical Assist at Home Physical Assist at Home for: Cleaning;Laundry;Meals;Shopping;Transportation OT Recommendations to Nursing: To Bathroom for ADL?s /and or Toileting;OOB for meals OT 6 Clicks Score: 24 ASSESSMENT: OT Evaluation Low Complexity: Occupational Profile - Brief review of patient's medical record completed (please see current hospital course of evaluation). Occupational Performance - Pt presents with no deficits. Complexity in Clinical Decision Making - The extent of clinical reasoning was low, no need for modifications during the evaluation process, few comorbidities present to affect patient's occupational performance: MD Patient Disposition at Start of Session: Supine in Bed;Call Barnes in Reach Patient Disposition at End of Session: Call Barnes in Reach;Supine in Bed Tolerated Full Session Occupational Therapy Problem List: Pain;Impaired Self Care;Decreased Activity Tolerance Patient /Caregiver Goals: Go Home PLAN: Treatment Frequency (times per week): Discontinue Therapy Services (1-3) Reasons Therapy Services Discontinued: Independent in all functional mobility;No skilled needs Current admission Plan of Care developed with: Patient TREATMENT INTERVENTIONS: Therapy Diagnosis: Reduced mobility-other Interventions Provided: Evaluation;Self Group Home Management (06347) $ Evaluation-Low (71213) Billed Units: 1 unit Self Group Home Management (37362) Treatment Minutes: 5 0 units Skilled Intervention(s): Edu pt on log rolling technique to decrease pain with getting in/out of bed. Edu pt on crossed leg dressing technique and squatting instead of bending to decrease pain/dizziness. Facilitated pt don/doff sock with good return demo of technique. Facilitated functional mobility to bathroom for on/off toilet to assess safety awareness and various orthostatic positions. Edu pt on importance of leaving O2 on until doctor starts to wean him off. Total Timed Code Treatment Minutes: 5 Total Treatment Time (minutes): 15 FUNCTIONAL G CODE: OT 6 Clicks Score: 24 (07/29/18 1440) $ Self Care Current Status (G8987): (07/29/18 1440) $ Self Care Goal Status (G8988): (07/29/18 1440) $ Self Care Discharge Status (G8989): (07/29/18 1440) Based on clinical assessment and the score on the 6 Clicks Functional Assessment Tool, the G code and corresponding severity modifiers are documented above. SUBJECTIVE: Current Hospital Course: Chart reviewed; This is a 68 year old male with s/p 3 ft fall off of porch (2/2 dizziness) with L 7-10 rib fractures, pulmonary contusion. Complains of Left sided chest pain s/p fall.States that he got dizzy and fell off of his porch ~3 feet onto his AC unit. Reports prior episodes of dizziness without syncope. Impression CT Chest/Abdomen/Pelvis: (+) Left lower lobe pulmonary contusion (+) acute fractures of L ribs 7-10 Active Hospital Problems Diagnosis - Fall - Dizziness - Contusion of left lung - Fracture three ribs-closed, left, initial encounter PAST MEDICAL HISTORY Diagnosis Date - Heart attack (HCC) - High cholesterol - Hypertension PAST SURGICAL HISTORY Procedure Laterality Date - ANGIOPLASTY HX with cardiac stent x1 - APPENDECTOMY HX - TONSILLECTOMY HX Reason for Occupational Therapy Consult: Progressive mobility protocol Relevant Past Medical History: MD, HTN Patient Report: Patient reports he is doing well, just has pain. Patient ready to return home with no concerns. 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 OBJECTIVE: Responsiveness: Alert;Awake Follows Commands: 2-step Commands Memory Deficits: (3/3) Mini Cog Score: 5 (07/29/18 1440) CURRENT FUNCTIONAL STATUS: Current Activities of Daily Living Assist Level Feeding Modified Independent Grooming Modified Independent Bathing Upper Body Stand By Assistance Bathing Lower Body Stand By Assistance Dressing Upper Body Stand By Assistance Dressing Lower Body Stand By Assistance Toileting Modified Independent Functional Mobility Assist Level Rolling Supine to Sit Sit to Supine Scooting Sit to Stand Stand By Assistance Stand to Sit Stand By Assistance Bed to Chair Toilet/Commode Stand By Assistance Functional Mobility Stand By Assistance (None) Hand Dominance: Right Range of Motion: WFL Strength: WFL Patient left reclined in bed with call light in reach. Please see discipline specific clinical documentation flowsheet for complete details for this therapy evaluation/treatment. SIGNATURE: Lb Ly/OT PATIENT NAME: Janett Vuong DATE: July 29, 2018 TIME: 3:11 PM CASE MGT INIT Observed: 07/29/2018 Status: COMPLETED Source: [facility] 3:04 PM CLINIC OTHER CAMPUS REPOSITORY HNO ID: [id number] Author: Darcy (Rn) MARCE Dickey Service: Care Management Author Type: Registered Nurse Type: Care Mgt Initial Assessment Filed: 07/29/2018 3:06 PM Note Text: CARE MANAGEMENT: ASSESSMENT AND DISCHARGE PLAN SERVICE DATE: 07/29/2018 SERVICE TIME: 3:04 PM PRIMARY CARE PHYSICIAN: Roland Farah MD ADMISSION STATUS: Inpatient Needs Prior to Discharge: To Be Determined MEDICAL: Patient/Hand Tufter Stated Goals: To return home to life as it was Health Insurance: [employer] Confirmed Medicare Health Issues Impacting Discharge Plan: None Last Admission Date: none Is this Within the Past 30 days? No Advance Directive: Current Advance Directive: None Director Of Category Management Attempted to Assist with AD Completion: Yes Action: Education Provided (SW paged to assist with completion) Health Literacy: 1. How often do you need to have someone help you when you read instructions, pamphlets, or other written material from your doctor or pharmacy? Never - 1 2. How confident are you filling out medical forms by yourself? Extremely - 1 If Patient scores > 3 on either question, the following interventions were put into place: Patient did not score > 3 FUNCTIONAL AND COGNITIVE/BEHAVIORAL PRIOR TO ADMISSION: Baseline Mental Status: Alert AND Oriented, Person, Place , Time and Situation Functional Status: Independent Does Patient Currently Receive Any Community Services or Home Care? None Equipment Prior to Admission: None Has the Patient Been in a Care Home Facility in the Past 30 days? No SOCIAL: Living Arrangement: Home, First floor living. Laundry in basement Lives With: Spouse Financial Resources: Retired Primary Contact: Extended Emergency Contact Information Primary Emergency Contact: Kimmie Vuong Mobile Relation: Spouse Supportive: Yes Other Important Patient Contacts: None Caregiver Assessment: Caregiver is ready, willing and able to meet the patient's needs as recommended by the inter-professional team? Yes Patient's transition needs and plan for meeting these needs: Does the patient have an acute stroke diagnosis, or has the patient had a stroke during this admission? No Medication Adherence: I am convinced of the importance of my prescription medication: Agree mostly - 0 I worry that my prescription medication will do more harm than good to me Disagree mostly - 0 I feel financially burdened by my [id number] expenses for my prescription medication: Disagree completely - 0 Patient is categorized as low risk < 2 Are you interested in bedside delivery of your medications? Yes Food Concerns: In the Last Month, Have You had Trouble Getting Food? No trouble getting food During the Last Month, Have You Worried Whether Your Food Would Run Out Before You Had Enough Money to Buy More? No Is the Patient Psychosocially Complex? No ASSESSMENT AND PLAN: Medical Needs: None Psychosocial Needs: None FREEDOM OF CHOICE EXPLAINED: N/A POTENTIAL TRANSITION PLANS No Services Indicated Plans to return home with spouse when medically ready for discharge. SIGNATURE: Darcy Dickey RN PATIENT NAME: Janett Vuong DATE: July 29, 2018 TIME: 3:04 PM PAGER/CONTACT #: [phone] CONSULT PROG Observed: 07/29/2018 Status: COMPLETED Source: [place] 2:22 PM CLINIC OTHER CAMPUS REPOSITORY HNO ID: [id number] Author: Chrystal Gonzalez Service: Hospital Medicine Author Type: Physician Type: Consult Progress Note Filed: 07/29/2018 2:32 PM Note Text: DEPARTMENT OF HOSPITAL MEDICINE PROGRESS NOTE SERVICE DATE: 07/29/2018 SERVICE TIME: 2:22 PM Hospital Medicine/Primary Attending: Chrystal Gonzalez MD NIGHT AND WEEKEND COVERAGE: After 7pm, please call cross cover pager #[phone] Subjective CC/Follow up for Medical management INTERVAL HPI: no acute events overnight Pt reported L side chest pain with cough and deep breathing, no other complaints Pt endorsed having episodes of dizziness before and he refused event monitor due to cost. He follows with garageman and he already talked to him about this before Pt denied any fever, chills, nausea, vomiting, abd pain, MEDICATIONS: Reviewed Current hospital medications: polyethylene glycol 3350 17 g packet (MIRALAX, GLYCOLAX) 17 g ORAL DAILY cyclobenzaprine 10 mg tab(s) (FLEXERIL) 10 mg ORAL TID PRN senna-docusate 8.6-50 mg 1 tablet (SENNA-S) 1 tablet ORAL BID aspirin 81 mg chewable tab(s) 81 mg ORAL DAILY clopidogrel 75 mg tab(s) (PLAVIX) 75 mg ORAL DAILY acetaminophen 975 mg tab(s) (TYLENOL) 975 mg ORAL QID HYDROmorphone 0.5 mg injection (DILAUDID) 0.5 mg INTRAVENOUS q 4 H PRN oxyCODONE IR 5-10 mg tab(s) (ROXICODONE) 5-10 mg ORAL q 4 H PRN enoxaparin 30 mg injection (LOVENOX) 30 mg SUBCUTANEOUS BID guaiFENesin 600 mg ER tab(s) (MUCINEX) 600 mg ORAL q 12 H ipratropium-albuterol 3 mL nebulizer solution (DUONEB) 3 mL INHALATION TID metoprolol succinate ER 25 mg tab(s) (TOPROL XL) 25 mg ORAL DAILY nitroglycerin sublingual 0.4 mg tab(s) (NITROQUICK) 0.4 mg SUBLINGUAL PRN 0.9% NaCl 3-5 mL 3-5 mL INTRAVENOUS q 12 H albuterol 2.5 mg /3 mL (0.083 %) 2.5 mg (PROVENTIL) 2.5 mg INHALATION q 4 H PRN ondansetron 4 mg tab(s) (ZOFRAN) 4 mg ORAL q 6 H PRN ondansetron (PF) 4 mg injection (ZOFRAN) 4 mg INTRAVENOUS q 6 H PRN Objective PHYSICAL EXAM: BP 122/70 Pulse 82 Temp (Src) 97.7 (Temporal Artery) Resp 18 Ht 5' 10 (1.78m) Wt 180 lb (81.6kg) SpO2 94% BMI 25.83 kg/(m2). Gen: Alert, oriented, no distress, cooperative HENT: NCAT, Eyes: non-icteric sclera Neck: supple CV: RRR, normal S1,S2, no murmur Resp: non-labored, CTBL GI: soft, ND, NT Neuro: no focal deficit MS: no LE edema, no deformity Skin: warm, no rash Psych: appropriate mode and affect DATA: Diagnostic tests reviewed for today's visit: CBC, Coags, BMP, Mg, Phos Recent Labs 07/29/18 0355 07/28/18 0400 WBC 12.06* 10.04* HB 13.9 13.5* HCT 41.1 40.9 PLT 181 194 NA 134* 136 K 4.2 4.4 CHLOR 100 102 CO2 28 29 BUN 12 13 CREAT 0.89 0.92 GLUC 135* 153* CA 9.4 8.5 MG 2.1 2.1 P 3.8 2.8 CSF AND Dilantin Liver Function, Amylase, AND Lipase Cardiac Enzymes ABGs CXR ? IMPRESSION: ? Small right-sided pleural effusion. ?Probable atelectasis at both lung bases. Assessment/Plan 68 year old male presenting as trauma following fall at home after a period of lightheadedness Fall with lightheadedness and presyncope - pt follows with his garageman, refused event monitor previously due to cost and he is not interested now either for same reason - EKG showed NSR upon admission Rib fractures and lung confusion- per trauma CAD-continue aspirin, plavix, beta megan HLD-suggest resume statin Hx copd-continue duoneb Tobacco abuse-cessation counseled ? ? VTE PROPHYLAXIS: per primary team ? Disposition: per primary team Plan of care discussed with: Patient SIGNATURE: Chrystal Gonzalez MD PATIENT NAME: Janett Vuong DATE: July 29, 2018 TIME: 2:22 PM PAGER/CONTACT #: [phone] Observed: 07/29/2018 Status: COMPLETED Source: [place] 1:53 PM CLINIC OTHER CAMPUS REPOSITORY HNO ID: [id number] Author: Vadim Richter (Pa) Service: Trauma Author Type: Physician [employer] Agent Type: Progress Notes Filed: 07/29/2018 2:07 PM Note Text: Trauma Surgery Progress Note SERVICE DATE: 07/29/2018 SUBJECTIVE: No acute events overnight. Patient notes difficulty sleeping and getting comfortable 2/2 rib pain. Also noting productive cough. Denies chills or sweats. Denies CP or sob. Deep respirations are uncomfortable. Passing flatus. - BM. Tolerating diet DIET HEART HEALTHY Nausea No Emesis No Flatus Yes Bowel movement No Pain Controlled No Ambulating No OBJECTIVE: Vitals: Temp (24hrs), Av.6 ?C (97.8 ?F), Min:36.4 ?C (97.5 ?F), Max:36.7 ?C (98.1 ?F) BP 122/70 Pulse 82 Temp 36.5 ?C (97.7 ?F) (Temporal Artery) Resp 18 Ht 177.8 cm (5' 10) Wt 81.6 kg (180 lb) SpO2 94% BMI 25.83 kg/m? O2 Therapy: Nasal Cannula IANDO: Date 07/28/18 07 - 07/29/18 0659 07/29/18 07 - 07/30/18 0659 Shift 0800-5353 8022-3048 3949-1949 24 Hour Total 3355-8325 9326-8760 2559-8506 24 Hour Total I N T A K E PO 480 694 5970 120 120 PO 430 967 9090 120 120 IV 345 345 IVPB 250 250 LR 95 95 Shift Total 7831 057 7318 120 120 O U T P U T Urine 948 517 1645 Void (ml) 614 781 6668 Shift Total 449 512 7153 Weight (kg) 86.8 86.8 81.6 81.6 81.6 81.6 81.6 81.6 MEDICATIONS Current Facility-Administered Medications: cyclobenzaprine 10 mg tab(s) (FLEXERIL) 10 mg ORAL TID PRN senna-docusate 8.6-50 mg 1 tablet (SENNA-S) 1 tablet ORAL BID aspirin 81 mg chewable tab(s) 81 mg ORAL DAILY clopidogrel 75 mg tab(s) (PLAVIX) 75 mg ORAL DAILY acetaminophen 975 mg tab(s) (TYLENOL) 975 mg ORAL QID HYDROmorphone 0.5 mg injection (DILAUDID) 0.5 mg INTRAVENOUS q 4 H PRN oxyCODONE IR 5-10 mg tab(s) (ROXICODONE) 5-10 mg ORAL q 4 H PRN enoxaparin 30 mg injection (LOVENOX) 30 mg SUBCUTANEOUS BID guaiFENesin 600 mg ER tab(s) (MUCINEX) 600 mg ORAL q 12 H ipratropium-albuterol 3 mL nebulizer solution (DUONEB) 3 mL INHALATION TID metoprolol succinate ER 25 mg tab(s) (TOPROL XL) 25 mg ORAL DAILY nitroglycerin sublingual 0.4 mg tab(s) (NITROQUICK) 0.4 mg SUBLINGUAL PRN 0.9% NaCl 3-5 mL 3-5 mL INTRAVENOUS q 12 H albuterol 2.5 mg /3 mL (0.083 %) 2.5 mg (PROVENTIL) 2.5 mg INHALATION q 4 H PRN ondansetron 4 mg tab(s) (ZOFRAN) 4 mg ORAL q 6 H PRN Or ondansetron (PF) 4 mg injection (ZOFRAN) 4 mg INTRAVENOUS q 6 H PRN Labs: Recent Labs 07/29/18 0355 07/28/18 0400 NA 134* 136 K 4.2 4.4 CHLOR 100 102 CO2 28 29 BUN 12 13 CREAT 0.89 0.92 GLUC 135* 153* ANION 10 9 CA 9.4 8.5 MG 2.1 2.1 P 3.8 2.8 WBC 12.06* 10.04* HB 13.9 13.5* HCT 41.1 40.9 PLT 181 194 Exam: GENERAL: No distress, Alert. Not appearing acutely ill NEURO: AANDOx3, CN II-XII grossly intact HEENT: normocephalic, atraumatic LUNGS: Unlabored breathing. SpO2 94% on 3L NC. Lungs CTAB. CARDIAC: Regular rate and rhythm as above ABDOMEN: Soft, non-tender, non-distended. Bowel sounds normoactive. EXTREMITIES: WHEAT, No deformities, No edema. Pedal pulses 2+ SKIN: Skin color, texture, turgor normal, No rashes or lesions ASSESSMENT AND PLAN: Active Hospital Problems Diagnosis Date Noted - Fall 07/28/2018 - Dizziness 07/28/2018 - Contusion of left lung 07/28/2018 - Fracture three ribs-closed, left, initial encounter 07/27/2018 68 year old male s/p fall with L 7-10 rib fx - Pain control - scheduled Tylenol, prn Flexeril, OxyIR 5- 10 mg for sever, Dilaudid 0.5 mg breakthrough - Heart healthy diet - DVT ppx: Lovenox, SCDs - Bowel regimen - Senna-S, added Miralax - IS, DUONEB, Mucinex, EZPAP - 2-view CXR 07/30 - Continue home meds - Hosp Med - patient declined further testing for syncope - Dispo: PT/OT consults pending. Vadim Richter PA-C 07/29/2018 2:06 PM SIGNATURE: Vadim Richter PA-C PATIENT NAME: Janett Vuong DATE: July 29, 2018 TIME: 2:06 PM Pager: [phone] HEMOGRAM/DIFF Collected: 07/29/2018 Status: F Source: [facility] 3:55 AM HEALTH SYSTEM REPOSITORY TYPE CODE TESTS RESULT OUT OF REFERENCE UNITS RANGE LAB WBC(LOINC) 4.23-9.07 thou/cmm WBC High 12.06 LAB RBC(LOINC) 4.63-6.08 mil/cmm RBC 4.66 LAB HGB(LOINC) 13.7-17.5 g/dL Hgb 13.9 LAB HCT(LOINC) 40.1-51.0 % Hct 41.1 LAB MCV(LOINC) 83.2-95.6 fl MCV 88.2 LAB MCH(LOINC) 25.7-32.2 pg MCH 29.8 LAB MCHC(LOINC 32.3-36.5 % ) MCHC 33.8 LAB RDW(LOINC) 11.6-14.4 % RDW 12.9 LAB RDWSD(LOIN 36.1-45.8 fl C) RDW SD 41.8 LAB PLT(LOINC) 141-365 thou/cmm Platelet 181 LAB MPV(LOINC) 8.7-12.0 fl MPV 10.4 LAB SEG(LOINC) % Seg Neutrophil 78.8 LAB IGRE(LOINC % ) Immature Grans 0.20 LAB LYMPH(LOIN % C) Lymphocyte 11.9 LAB MNO(LOINC) % Monocyte 7.9 LAB EOSIN(LOIN % C) Eosinophil 1.0 LAB BASO(LOINC % ) Basophil 0.2 LAB SEGN(LOINC 1.78-5.38 thou/cmm ) Abs. High Neut (ANC) 9.50 LAB IGAB(LOINC 0.00-0.05 thou/cmm ) Abs Immature Grans 0.02 LAB LYMN(LOINC 0.84-2.85 thou/cmm ) Abs. Lymph 1.44 LAB MONON(LOIN 0.30-0.82 thou/cmm C) Abs. High [place] 0.95 LAB EOSN(LOINC 0.04-0.54 thou/cmm ) Abs. Eosin 0.12 LAB BASON(LOIN 0.01-0.08 thou/cmm C) Abs. Baso 0.02 Performed By: #### CBCD1 #### [facility] [address] [id number] IONIZED CALCIUM Collected: 07/29/2018 Status: F Source: [facility] 3:55 AM HEALTH SYSTEM REPOSITORY TYPE CODE TESTS RESULT OUT OF REFERENCE UNITS RANGE LAB CAION(LOINC 4.43-4.93 mg/dL ) Ionized 4.69 Calcium LAB PHCAI(LOINC 7.320-7.420 ) pH 7.377 LAB CAPH(LOINC) 4.36-4.73 mg/dL Ionized 4.64 Ca,PH7.4 Performed By: #### IONCA #### [place] [address] BASIC PANEL Collected: 07/29/2018 Status: F Source: [facility] 3:55 AM HEALTH SYSTEM REPOSITORY TYPE CODE TESTS RESULT OUT OF REFERENCE UNITS RANGE LAB NA(LOINC) 136-145 mEq/L Low Sodium Blood 134 LAB K(LOINC) 3.5-5.1 mEq/L Potassium Blood 4.2 LAB CL(LOINC) 98-107 mEq/L Chloride Blood 100 LAB CO2(LOINC) 21-32 mEq/L CO2 Blood 28 LAB GLU(LOINC) 70-99 mg/dL Glucose High Blood 135 LAB BUN(LOINC) 7-18 mg/dL BUN Blood 12 LAB CREA(LOINC 0.67-1.17 mg/dL ) Creatinine Blood 0.89 LAB CA(LOINC) 8.5-10.1 mg/dL Calcium Blood 9.4 LAB ANGAP(LOIN 8-16 C) Anion Gap 10 Performed By: #### P8 #### [place] [address] PHOSPHORUS BLOOD Collected: 07/29/2018 Status: F Source: [facility] 3:55 AM HEALTH SYSTEM REPOSITORY TYPE CODE TESTS RESULT OUT OF REFERENCE UNITS RANGE LAB PHOS(LOINC 2.5-4.9 mg/dL ) Phosphorus Blood 3.8 Performed By: #### PHOS #### [place] [address] MAGNESIUM BLOOD Collected: 07/29/2018 Status: F Source: [facility] 3:55 AM [facility] SYSTEM REPOSITORY TYPE CODE TESTS RESULT OUT OF REFERENCE UNITS RANGE LAB MAG(LOINC) 1.6-2.6 mg/dL Magnesium Blood 2.1 Performed By: #### MAG #### [place] [address] HGB A1C Collected: 07/29/2018 Status: F Source: [facility] 3:55 AM HEALTH SYSTEM REPOSITORY TYPE CODE TESTS RESULT OUT OF RANGE REFERENCE UNITS LAB A1C5(LOINC) 4.2-6.3 % High Hgb A1c 6.6 Result Comment: Method is National Glycohemoglobin Standardization Program (NGSP) compliant. LAB ESAVG(LOINC) mg/dl Est. Avg Glucose 143 Performed By: #### HA1C #### [facility] [address] [address] CONSULT Observed: 07/28/2018 Status: COMPLETED Source: [place] 9:46 PM CLINIC OTHER CAMPUS REPOSITORY HNO ID: [id number] Author: Marlin Gagnon Service: Hospital Medicine Author Type: Physician Type: Consults Filed: 07/28/2018 10:17 PM Note Text: DEPARTMENT OF HOSPITAL MEDICINE INITIAL CONSULT SERVICE DATE: 07/28/2018 SERVICE TIME: 9:46 PM Primary Care Physician: Roland Farah MD NIGHT AND WEEKEND COVERAGE: After 7pm, please call cross cover pager #[phone] REASON FOR CONSULT: dizziness REQUESTING PHYSICIAN: Dr Alondra Ortega Subjective CHIEF COMPLAINT: Fall HPI: 68 year old male with hx tobacco abuse, COPD and Cad for which he follows at [place] presents with a fall at home. Patient states that he was bent over and stood up from this bent over position and got very lightheaded and fell about three feet onto AC unit. Patient was admitted to SICU as trauma for L 7-10 rib fractures and left lower lobe pulmonary contusion due to high risk of respiratory decompensation. Patient states that he has been getting these lightheaded spells for the past four months or so. Usually they happen when he first gets up and starts walking. Once about 3 months ago he passed out at work. He did not pass out for his most recent fall. He admits to racing heart at times. He denies numbness or tingling. He denies room spinning or feeling like he is spinning. He normally just feels faint and lightheaded when these episodes occur. He reports seeing his garageman yearly in [place] but always refuses echo due to cost. Currently, he is having lots of pain from the fractures, as well as cough and shortness of breath as he feels he cannot take a deep breath. He denies abdominal pain, nausea or vomiting. He has no history of stroke and denies hx DM2. PAST MEDICAL HISTORY Diagnosis Date - Heart attack (HCC) - High cholesterol - Hypertension PAST SURGICAL HISTORY Procedure Laterality Date - ANGIOPLASTY HX with cardiac stent x1 - APPENDECTOMY HX - TONSILLECTOMY HX No family history on file. Social History Substance Use Topics - Smoking status: Current Every Day Smoker Packs/day: 1.00 Types: Cigarettes - Smokeless tobacco: Not on file - Alcohol use Not on file Comment: 1-2x/weeks MEDICATIONS: Reviewed Prescriptions Prior to Admission: clopidogrel bisulfate(PLAVIX 75 MG TAB) Take one(1) tablet daily. Disp: Rfl: 0 ATENOLOL 50 MG TAB Take one(1) tablet daily. Disp: Rfl: 0 rosuvastatin calcium(CRESTOR 5 MG TAB) Take one(1) tablet daily. Disp: Rfl: 0 nitroglycerin(NITROSTAT 0.4 MG SUBLINGUAL TAB) Place one(1) tablet on tongue as needed for chest pain. If no pain relief call 911. Disp: Rfl: 0 aspirin(ADULT LOW DOSE ASPIRIN 81 MG TAB, DELAYED RELEASE) Take one(1) tablet daily. Disp: Rfl: 0 Current hospital medications: cyclobenzaprine 10 mg tab(s) (FLEXERIL) 10 mg ORAL TID PRN senna-docusate 8.6-50 mg 1 tablet (SENNA-S) 1 tablet ORAL BID aspirin 81 mg chewable tab(s) 81 mg ORAL DAILY clopidogrel 75 mg tab(s) (PLAVIX) 75 mg ORAL DAILY acetaminophen 975 mg tab(s) (TYLENOL) 975 mg ORAL QID HYDROmorphone 0.5 mg injection (DILAUDID) 0.5 mg INTRAVENOUS q 4 H PRN oxyCODONE IR 5-10 mg tab(s) (ROXICODONE) 5-10 mg ORAL q 4 H PRN enoxaparin 30 mg injection (LOVENOX) 30 mg SUBCUTANEOUS BID metoprolol succinate ER 25 mg tab(s) (TOPROL XL) 25 mg ORAL DAILY nitroglycerin sublingual 0.4 mg tab(s) (NITROQUICK) 0.4 mg SUBLINGUAL PRN 0.9% NaCl 3-5 mL 3-5 mL INTRAVENOUS q 12 H albuterol 2.5 mg /3 mL (0.083 %) 2.5 mg (PROVENTIL) 2.5 mg INHALATION q 4 H PRN ondansetron 4 mg tab(s) (ZOFRAN) 4 mg ORAL q 6 H PRN ondansetron (PF) 4 mg injection (ZOFRAN) 4 mg INTRAVENOUS q 6 H PRN . ALLERGIES No Known Allergies REVIEW OF SYSTEMS: GENERAL: denies weight loss, malaise or fevers HEENT: Negative for frequent or significant headaches, No changes in hearing or vision, no nose bleeds or other nasal problems NECK: Negative for lumps, goiter, pain and significant neck swelling RESPIRATORY: Positive for cough with mucus production, denies hemoptysis, wheezing CARDIOVASCULAR: Negative for leg swelling, hypertension, CHF or palpitations GI: No nausea, vomiting, or diarrhea : No history of dysuria, frequency or incontinence MUSCULOSKELETAL: Positive for chest and rib discomfort SKIN: Denies new rashes or lesions NEURO: No history of headaches, syncope, paralysis, CVA Objective PHYSICAL EXAM: BP 127/77 Pulse 83 Temp (Src) 98.1 (Oral) Resp 24 Ht 5' 10 (1.78m) Wt 191 lb 5.8 oz (86.8kg) SpO2 97% BMI 27.46 kg/(m2). Physical Exam Performed: GENERAL: Alert, no distress, cooperative SKIN: Skin color, texture, turgor normal. L knee abrasion HEAD/SINUSES: No significant findings EYES: PERRLA, EOMI NECK: No jugulovenous distention, No carotid bruits, Carotid pulse normal contour, Supple LUNGS: Lungs clear to auscultation, Good diaphragmatic excursion Heart-RRR, normal S1 and S2, L chest wall tenderness Abdomen-soft, NT/ND, +BS Extremities-no cyanosis, clubbing, edema Neuro-CN III-XII intact, sensation intact Lines, Drains, and Airways Line Peripheral 07/27/18 Short Right Antecubital 20 Gauge 1 day Reviewed lines, drains, AND airways. Need to be continued yes DATA: Diagnostic tests reviewed for today's visit: Most recent labs and imaging results. Impression/Recommendations 68 year old male presenting as trauma following fall at home after a period of lightheadedness 1. Fall with lightheadedness and presyncope-PT/OT, trauma following, pain control, lightheadedness episodes-sound possibly orthostatic given usually occur when changing from bending down or sitting to standing, however, some history of racing heart as well and given hx vascular disease, would recommend tele, echo and carotid ultrasound. Unfortunately, patient is firmly refusing all testing. He is only agreeable to blood pressure checks. I discussed the importance of checking for any underlying medical problem, but he is worried about cost and currently refusing 2. Rib fractures and lung confusion-continue pain control, IS, patient states he cannot cough up mucus-will add mucinex and dubonebs 3. CAD-continue aspirin, plavix, beta megan, suggest restart statin 4. HLD-suggest resume statin 5. Hx copd-continue duoneb 6. Tobacco abuse-cessation counseled VTE PROPHYLAXIS: Pneumatic Compression Device Disposition: Home Plan of care discussed with: Patient SIGNATURE: Marlin Gagnon DO PATIENT NAME: Janett Vuong DATE: July 28, 2018 TIME: 9:46 PM PAGER/CONTACT #: [phone] LEAD ELECTROCARDIOGRAM Observed: 07/28/2018 Status: F Source: [place] 2:11 PM [facility] REPOSITORY [facility] Cardiovascular Services [address] [place] [id number] 12 Lead EKG 07/27/18 0508 MR#: [id number] Acct: [id number] Name: JANETT VUONG Rep #: [id number] : 1950 68 From: Xavi Brody MD Attending Dr: Status: DEP ER Ordering Dr: Zaki Smith MD Date: 07/27/18 Location: ED Sex: M C Admitted: Test Reason : FALL Blood Pressure : / mmHG Vent. Rate : 073 BPM Atrial Rate : 073 BPM P-R Int : 148 ms QRS Dur : 098 ms QT Int : 396 ms P-R-T Axes : 073 017 033 degrees QTc Int : 436 ms Normal sinus rhythm Possible Left atrial enlargement Inferior infarct , age undetermined Abnormal ECG Confirmed by XAVI BRODY MD ([id number]), news video editor DESTINI GAVIRIA ([id number]) on 07/28/2018 2:11:07 PM Referred By: Xavi Brody Confirmed By:XAVI BRODY MD 07/28/18 1411 Date Xavi Brody MD CC: No Primary Care Physician; Zaki Smith MD Signed PLAN OF CARE Observed: 07/28/2018 Status: COMPLETED Source: [place] 1:02 PM [facility] REPOSITORY HNO ID: [id number] Author: Flako Stephens ([employer] Operator) Service: Pharmacy Author Type: Pharmacist Type: Plan of Care Filed: 07/28/2018 1:04 PM Note Text: MEDICATION HISTORY AND MEDICATION RECONCILIATION Patient Name:Galen Vuong : 1950 Source of history:Patient: Reliability of source: Appears reliable, clearly identified: Medication name, Medication dose, Medication route and Medication frequency and Pharmacy records: [facility] [phone] [facility] Medication Nonadherence Identified: No barriers noted The above information represents the best possible medication history: Yes Reconciliation completed? 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 Yes ATENOLOL 50 MG TAB Take one(1) tablet daily. Yes rosuvastatin calcium(CRESTOR 5 MG TAB) Take one(1) tablet daily. Yes nitroglycerin(NITROSTAT 0.4 MG SUBLINGUAL TAB) Place one(1) tablet on tongue as needed for chest pain. If no pain relief call 911. Yes aspirin(ADULT LOW DOSE ASPIRIN 81 MG TAB, DELAYED RELEASE) Take one(1) tablet daily. Yes Flako Stephens, PharmD PGY1 [employer] Operator [phone] Page: [phone] July 28, 2018 1:02 PM PROGRESS Observed: 07/28/2018 Status: COMPLETED Source: [place] 6:34 AM [facility] REPOSITORY HNO ID: [id number] Author: Arthur Menchaca Service: General Surgery Author Type: Physician Type: Progress Notes Filed: 07/28/2018 6:03 PM Note Text: PROGRESS NOTE Trauma Surgery Progress Note Trauma Service Pager: For questions or concerns Mon-Sat 6a-5p please page [phone]. After 5pm and on Weekends and Holidays, please page [phone] if in ICU or [phone] if on RNF. SERVICE DATE: 07/28/2018 SERVICE TIME: 6:34 AM SUBJECTIVE: Subjective Subjective: This is a 68 year old male s/p fall with multiple rib fractures Pt feels well. Pain controled with medication, tolerating IS Bowel movement No Flatus No Diet DIET HEART HEALTHY Ambulating No Nausea No Emesis No Current Facility-Administered Medications: acetaminophen 975 mg tab(s) (TYLENOL) 975 mg ORAL q 6 H cyclobenzaprine 10 mg tab(s) (FLEXERIL) 10 mg ORAL TID PRN oxyCODONE IR 5-10 mg tab(s) (ROXICODONE) 5-10 mg ORAL q 4 H PRN HYDROmorphone 0.5-1 mg injection (DILAUDID) 0.5-1 mg INTRAVENOUS q 2 H PRN senna-docusate 8.6-50 mg 1 tablet (SENNA-S) 1 tablet ORAL BID metoprolol succinate ER 25 mg tab(s) (TOPROL XL) 25 mg ORAL DAILY nitroglycerin sublingual 0.4 mg tab(s) (NITROQUICK) 0.4 mg SUBLINGUAL PRN potassium chloride 80-120 mEq oral liquid 80-120 mEq ORAL/FEEDING TUBE PRN potassium chloride iv piggyback 20 mEq in sterile water 100 mL 20 mEq INTRAVENOUS PRN magnesium sulfate in water 2 g in sterile water 50 ml 2 g INTRAVENOUS PRN sodium phosphate 45 mmol in NaCl 0.9% 250 mL 45 mmol INTRAVENOUS PRN calcium gluconate 4 g in NaCl 0.9% 250 mL 4 g INTRAVENOUS PRN enoxaparin 30 mg injection (LOVENOX) 30 mg SUBCUTANEOUS q 12 HR 0.9% NaCl 3-5 mL 3-5 mL INTRAVENOUS q 12 H albuterol 2.5 mg /3 mL (0.083 %) 2.5 mg (PROVENTIL) 2.5 mg INHALATION q 4 H PRN ondansetron 4 mg tab(s) (ZOFRAN) 4 mg ORAL q 6 H PRN Or ondansetron (PF) 4 mg injection (ZOFRAN) 4 mg INTRAVENOUS q 6 H PRN lidocaine 5 % 1 Patch (LIDODERM) 1 Patch TRANSDERMAL DAILY And lidocaine patch - REMOVE OTHER AT BEDTIME And lidocaine - VERIFY PATCH OTHER q 8 H lactated ringers infusion 50 mL/hr INTRAVENOUS CONTINUOUS atorvastatin 10 mg tab(s) (LIPITOR) 10 mg ORAL AT BEDTIME OBJECTIVE: Objective PHYSICAL EXAM: VITAL SIGNS BP 132/97 Pulse 77 Temp (Src) 97.7 (Axillary) Resp 26 Ht 5' 10 (1.78m) Wt 191 lb 5.8 oz (86.8kg) SpO2 92% BMI 27.46 kg/(m2). Temp (24hrs), Av.9 ?C (98.4 ?F), Min:36.5 ?C (97.7 ?F), Max:37.1 ?C (98.7 ?F) Date 07/27/18699 - 07/28/1859 07/28/18699 - 07/29/18 0659 Shift 4849-7174 5759-5021 0059-8393 24 Hour Total 2558-1565 4659-7082 0862-7665 24 Hour Total I N T A K E PO 558 439 6326 PO 270 719 1542 IV 279 257.7 536.7 LR 279 257.7 536.7 Shift Total 879 729.7 1608.7 O U T P U T Urine 177 776 5207 Void (ml) 077 842 3015 Shift Total 167 347 8056 Weight (kg) 83 82.7 86.8 86.8 86.8 86.8 86.8 86.8 GENERAL: Alert, no distress, cooperative SKIN: Skin color, texture, turgor normal. No rashes or lesions. LUNGS: Unlabored breathing on O2 Therapy: Nasal Cannula on Liters: 3 sating at SpO2: 92 % CARDIAC: rate and rhythm as above, ABDOMEN: Benign, Soft, non-tender, No masses, hepatosplenomegaly and No lymphadenopathy EXTREMITIES: ROM of all joint grossly normal: strength grossly normal bilaterally. No deformities noted. WOUND: N/A DATA: Diagnostic tests reviewed for today's visit: No results for input(s): BODSITE, CTYPE, PH, PCO2, PO2, BE, HCO3, CO2CT, O2HB, COHB, MHGB, TEMP, PHTC, PCO2T, PO2T, O2AD in the last 72 hours. Recent Labs 07/28/18 0400 CREAT 0.92 BUN 13 NA 136 K 4.4 CHLOR 102 CO2 29 ANION 9 GLUC 153* CA 8.5 P 2.8 MG 2.1 WBC 10.04* HB 13.5* HCT 40.9 PLT 194 ASSESSMENT AND PLAN: Active Hospital Problems Diagnosis Date Noted - Fracture three ribs-closed, left, initial encounter 07/27/2018 Assessment/Plan This is a 68 year old male s/p fall with L 7-10 rib fx -IS -aggressive pain control -reg diet -1 view cxr pending -transfer to floor I saw and evaluated the patient. Discussed with the resident and agree with resident's findings and plan as documented in the resident's note. Patient complaining of some rib pain. Breathing adequately. Okay to transfer to floor. SIGNATURE: Terrence Lyons MD PATIENT NAME: Janett Vuong DATE: July 28, 2018 TIME: 6:34 AM PAGER: [phone] CHEST 1 VIEW Observed: 07/28/2018 Status: F Source: [facility] 6:28 AM HEALTH SYSTEM REPOSITORY Performed at [facility] APPROVED BY: Emery Reddy MD EXAM TITLE: CHEST 1 VIEW DATE: 07/28/2018 06:08 INDICATION: Status post trauma. COMPARISON: CT scan dated 07/27/2018 Portable frontal view of the chest shows small right-sided pleural effusion. Probable atelectasis at both lung bases medially. No pneumothorax. Heart size is normal. IMPRESSION: Small right-sided pleural effusion. Probable atelectasis at both lung bases. PROGRESS Observed: 07/28/2018 Status: COMPLETED Source: [place] 6:21 AM [facility] REPOSITORY O ID: [id number] Author: Josiah Herrera Service: ADT-SICU Author Type: Physician Type: Progress Notes Filed: 07/28/2018 10:06 AM Note Text: INPATIENT SICU PROGRESS NOTE SERVICE DATE: 07/28/2018 SERVICE TIME: 6:21 AM Subjective No acute events o/n. Reports pain moderately well controlled. Denies SOB. ~700-800 on IS. Current hospital medications: acetaminophen 975 mg tab(s) (TYLENOL) 975 mg ORAL q 6 H cyclobenzaprine 10 mg tab(s) (FLEXERIL) 10 mg ORAL TID PRN oxyCODONE IR 5-10 mg tab(s) (ROXICODONE) 5-10 mg ORAL q 4 H PRN HYDROmorphone 0.5-1 mg injection (DILAUDID) 0.5-1 mg INTRAVENOUS q 2 H PRN metoprolol succinate ER 25 mg tab(s) (TOPROL XL) 25 mg ORAL DAILY nitroglycerin sublingual 0.4 mg tab(s) (NITROQUICK) 0.4 mg SUBLINGUAL PRN potassium chloride 80-120 mEq oral liquid 80-120 mEq ORAL/FEEDING TUBE PRN potassium chloride iv piggyback 20 mEq in sterile water 100 mL 20 mEq INTRAVENOUS PRN magnesium sulfate in water 2 g in sterile water 50 ml 2 g INTRAVENOUS PRN sodium phosphate 45 mmol in NaCl 0.9% 250 mL 45 mmol INTRAVENOUS PRN calcium gluconate 4 g in NaCl 0.9% 250 mL 4 g INTRAVENOUS PRN enoxaparin 30 mg injection (LOVENOX) 30 mg SUBCUTANEOUS q 12 HR 0.9% NaCl 3-5 mL 3-5 mL INTRAVENOUS q 12 H albuterol 2.5 mg /3 mL (0.083 %) 2.5 mg (PROVENTIL) 2.5 mg INHALATION q 4 H PRN ondansetron 4 mg tab(s) (ZOFRAN) 4 mg ORAL q 6 H PRN ondansetron (PF) 4 mg injection (ZOFRAN) 4 mg INTRAVENOUS q 6 H PRN docusate sodium 100 mg cap(s) (COLACE) 100 mg ORAL BID PRN lidocaine 5 % 1 Patch (LIDODERM) 1 Patch TRANSDERMAL DAILY lidocaine patch - REMOVE OTHER AT BEDTIME lidocaine - VERIFY PATCH OTHER q 8 H lactated ringers infusion 50 mL/hr INTRAVENOUS CONTINUOUS atorvastatin 10 mg tab(s) (LIPITOR) 10 mg ORAL AT BEDTIME Objective VITAL SIGNS BP 132/97 Pulse 77 Temp (Src) 97.7 (Axillary) Resp 26 Ht 5' 10 (1.78m) Wt 191 lb 5.8 oz (86.8kg) SpO2 92% BMI 27.46 kg/(m2). Temp (24hrs), Av.9 ?C (98.4 ?F), Min:36.5 ?C (97.7 ?F), Max:37.1 ?C (98.7 ?F) Date 07/27/18699 - 07/28/1859 07/28/18699 - 07/29/18 0659 Shift 9147-6106 3344-6535 0133-7983 24 Hour Total 7550-5583 5574-9510 8674-4001 24 Hour Total I N T A K E PO 825 994 4596 PO 437 004 8648 IV 279 257.7 536.7 LR 279 257.7 536.7 Shift Total 879 729.7 1608.7 O U T P U T Urine 147 235 3487 Void (ml) 740 034 6806 Shift Total 180 350 5307 Weight (kg) 83 82.7 86.8 86.8 86.8 86.8 86.8 86.8 PHYSICAL EXAM: GENERAL: Alert, no distress, cooperative SKIN: Skin color, texture, t3or normal. No rashes or lesions. LUNGS: no respiratory distress on O2 Therapy: Nasal Cannula on Liters: 3 sating at SpO2: 92 % CARDIAC: Regular rate and rhythm as above ABDOMEN: soft, mildly distended EXTREMITIES: WHEAT, no gross deformity NEURO: alert +oriented DATA: Diagnostic tests reviewed for today's visit: No results for input(s): BODSITE, CTYPE, PH, PCO2, PO2, BE, HCO3, CO2CT, O2HB, COHB, MHGB, TEMP, PHTC, PCO2T, PO2T, O2AD in the last 72 hours. Recent Labs 07/28/18 0400 CREAT 0.92 BUN 13 NA 136 K 4.4 CHLOR 102 CO2 29 ANION 9 GLUC 153* CA 8.5 P 2.8 MG 2.1 WBC 10.04* HB 13.5* HCT 40.9 PLT 194 Assessment/Plan This is a 68 year old male with s/p 3 ft fall off of porch (2/2 dizziness) with?L 7-10 rib fractures, pulmonary contusion ACTIVE PROBLEM LIST Fracture Three Ribs-Closed, Left, Initial Encounter Fall Dizziness Contusion of Left Lung Neuro: -neurochecks -pain control: tylenol, lidocaine patches, oxycodone, morphine, flexeril CV: -HDS -home statin Resp: stable on O2 Therapy: Nasal Cannula -2V CXR P -IS, pulm hygiene -prn duonebs -pain control -wean supp O2 GI: DIET HEART HEALTHY -farnaz po well -bowel regimen Renal: -strict Is/Os -prn electrolyte replacement -hep lock IVF No intake or output data in the 24 hours ending 07/27/18 0659 Heme: HGB - 13.5, stable from admission Endo: GLU - 153, stable ID: WBC - 10.04, stable Ext: WHEAT, no gross deformity, SCDs Ppx: SCDs, LVX BID Lines: PIV Consults: T, SICU Dispo: Likely RNF today Patient Checklist Deep vein thrombosis prophylaxis administered? Yes. Stress ulcer prophylaxis? No, not indicated.. Pain addressed? Yes. Nutrition: Enteral- Yes. TPN- No. PO- Yes. Restraints? No. Dispo needs assessed? Yes. SIGNATURE: Zunilda Holloway MD PATIENT NAME: Janett Vuong DATE: July 28, 2018 TIME: 6:21 AM PAGER: [phone] Awake and alert Repeat CXR shows no PTX or large hemothorax SaO2 OK Pain better controlled Plan: Pain control IS OK to resume ASA and Plavix Need outpatient evaluation of dizziness and syncope SCD Ambulate I provided 3 minutes of critical care services which were necessary due to above specified injuries and illnesses. This patient has a high probability of sudden, clinical significant deterioration, which required the highest level of care and preparedness to intervene urgently. I managed and supervised life or organ supporting interventions that require frequent assessments. This time does not include time devoted to teaching and to any procedure I billed separately. I have personally seen and examined this patient and participated in the venegas components of this encounter with the multi-disciplinary ICU team. I discussed the management of this case with the resident and reviewed/confirmed their documentation, attached or in separate note. I personally reviewed today's actual images, the associated image reports, and current labs. I supervised the ordering of additional testing, imaging, labs, and/or consultations. The patient and/or family were fully informed of the findings and plan of care. They had the opportunity to ask questions and raise any issues of concern, all of which were answered and dealt with by me to their stated satisfaction. The critical care treatment was mainly directed to address the following issues: (R04.2) Hemoptysis (primary encounter diagnosis) (R74.8) Elevated troponin (S22.42XA) Fracture three ribs-closed, left, initial encounter (S27.321A) Contusion of left lung, initial encounter (W19.XXXA) Fall, initial encounter (R42) Dizziness Management included sedation, pain control and ventilation assessment including need for ventilator, weaning and/or extubation as indicated. Management of critical care illnesses are edited above by me, including system by system plan and are not only limited to infectious disease and tailoring the antibiotic therapy, nutrition assessment and supplementation, electrolyte correction and prevention of ICU related complications using ventilator bundle, sedation holiday and assessment and removal of lines and tubes where indicated. SIGNATURE: Josiah Herrera MD PATIENT NAME: Janett Vuong DATE: July 28, 2018 TIME: 10:02 AM IONIZED CALCIUM Collected: 07/28/2018 Status: F Source: [facility] 4:00 HEALTH SYSTEM REPOSITORY TYPE CODE TESTS RESULT OUT OF REFERENCE UNITS RANGE LAB CAION(LOINC 4.43-4.93 mg/dL ) Ionized 4.57 Calcium LAB PHCAI(LOINC 7.320-7.420 ) pH 7.374 LAB CAPH(LOINC) 4.36-4.73 mg/dL Ionized 4.51 Ca,PH7.4 Performed By: #### IONCA #### [facility] [address] [place] [address] HEMOGRAM/DIFF Collected: 07/28/2018 Status: F Source: [facility] 4:00 HEALTH SYSTEM REPOSITORY TYPE CODE TESTS RESULT OUT OF REFERENCE UNITS RANGE LAB WBC(LOINC) 4.23-9.07 thou/cmm WBC High 10.04 LAB RBC(LOINC) 4.63-6.08 mil/cmm Low RBC 4.58 LAB HGB(LOINC) 13.7-17.5 g/dL Low Hgb 13.5 LAB HCT(LOINC) 40.1-51.0 % Hct 40.9 LAB MCV(LOINC) 83.2-95.6 fl MCV 89.3 LAB MCH(LOINC) 25.7-32.2 pg MCH 29.5 LAB MCHC(LOINC 32.3-36.5 % ) MCHC 33.0 LAB RDW(LOINC) 11.6-14.4 % RDW 13.1 LAB RDWSD(LOIN 36.1-45.8 fl C) RDW SD 42.8 LAB PLT(LOINC) 141-365 thou/cmm Platelet 194 LAB MPV(LOINC) 8.7-12.0 fl MPV 10.1 LAB SEG(LOINC) % Seg Neutrophil 73.1 LAB IGRE(LOINC % ) Immature Grans 0.20 LAB LYMPH(LOIN % C) Lymphocyte 13.3 LAB MNO(LOINC) % Monocyte 9.8 LAB EOSIN(LOIN % C) Eosinophil 3.4 LAB BASO(LOINC % ) Basophil 0.2 LAB SEGN(LOINC 1.78-5.38 thou/cmm ) Abs. High Neut (ANC) 7.34 LAB IGAB(LOINC 0.00-0.05 thou/cmm ) Abs Immature Grans 0.02 LAB LYMN(LOINC 0.84-2.85 thou/cmm ) Abs. Lymph 1.34 LAB MONON(LOIN 0.30-0.82 thou/cmm C) Abs. High [place] 0.98 LAB EOSN(LOINC 0.04-0.54 thou/cmm ) Abs. Eosin 0.34 LAB BASON(LOIN 0.01-0.08 thou/cmm C) Abs. Baso 0.02 Performed By: #### CBCD1 #### [place] [address] BASIC PANEL Collected: 07/28/2018 Status: F Source: [facility] 4:00 AM HEALTH SYSTEM REPOSITORY TYPE CODE TESTS RESULT OUT OF REFERENCE UNITS RANGE LAB NA(LOINC) 136-145 mEq/L Sodium Blood 136 LAB K(LOINC) 3.5-5.1 mEq/L Potassium Blood 4.4 LAB CL(LOINC) 98-107 mEq/L Chloride Blood 102 LAB CO2(LOINC) 21-32 mEq/L CO2 Blood 29 LAB GLU(LOINC) 70-99 mg/dL Glucose High Blood 153 LAB BUN(LOINC) 7-18 mg/dL BUN Blood 13 LAB CREA(LOINC 0.67-1.17 mg/dL ) Creatinine Blood 0.92 LAB CA(LOINC) 8.5-10.1 mg/dL Calcium Blood 8.5 LAB ANGAP(LOIN 8-16 C) Anion Gap 9 Performed By: #### P8 #### [place] [id number] PHOSPHORUS BLOOD Collected: 07/28/2018 Status: F Source: [facility] 4:00 AM HEALTH SYSTEM REPOSITORY TYPE CODE TESTS RESULT OUT OF REFERENCE UNITS RANGE LAB PHOS(LOINC 2.5-4.9 mg/dL ) Phosphorus Blood 2.8 Performed By: #### PHOS #### [facility] [address] [address] MAGNESIUM BLOOD Collected: 07/28/2018 Status: F Source: [facility] 4:00 AM HEALTH SYSTEM REPOSITORY TYPE CODE TESTS RESULT OUT OF REFERENCE UNITS RANGE LAB MAG(LOINC) 1.6-2.6 mg/dL Magnesium Blood 2.1 Performed By: #### MAG #### [facility] [address] [address] Observed: 07/27/2018 Status: F Source: [facility] MRSA SCREEN 2:45 PM HEALTH SYSTEM REPOSITORY Test performed at [facility] No MRSA detected. Performed By: #### MRSA #### [facility] [address] [address] TOTAL 25-OH VITAMIN Collected: 07/27/2018 Status: F Source: [facility] D 2:30 PM HEALTH SYSTEM REPOSITORY TYPE CODE TESTS RESULT OUT OF REFERENCE UNITS RANGE LAB 25VD1(LOINC 30.0-100.0 ng/mL ) Low Total 25-OH 28.6 Vitamin D Performed By: #### 25VD1 #### [facility] [address] [address] CONSULT Observed: 07/27/2018 Status: COMPLETED Source: [place] 1:13 PM CLINIC OTHER CAMPUS REPOSITORY O ID: [id number] Author: Josiah Herrera Service: ADT-SICU Author Type: Physician Type: Consults Filed: 07/28/2018 9:56 AM Note Text: []Hide copied text SICU Consult Note ? ARRIVAL DATE: 07/27/2018 ARRIVAL TIME: 09 ? CATEGORY: Level 3 ? INJURY DATE: 07/26/18 INJURY TIME: evening ? ? Subjective This is a 68 year old White male- Transfer from [place]. GCS at Scene was 15. Patient presents s/p fall from porch onto AC unit yesterday evening. Denies LOC. On ASA and Plavix for h/o CAD s/p cardiac stent. Complains of Left sided chest pain s/p fall.States that he got dizzy and fell off of his porch ~3 feet onto his AC unit. Reports prior episodes of dizziness without syncope, but denies CP/SOB or any other symptoms prior to fall. States that he was ambulatory after the fall. Denies head trauma. Endorses L sided chest pain, but denies SOB, DELAROSA, nausea, emesis, abdominal pain, weakness, numbness, vision changes. Has hx of MVP + Cardiac Stents, appendectomy. +daily smoker- reports 1ppd. ? CT Head/Neck: No fracture or hemorrhage. No acute osseous injury is evident. Comment: MRI is more sensitive than CT in detecting cord injury, ligament injury, and epidural hematoma. If there is continued clinical concern for any of these entities, MRI correlation should be considered if possible. ? CT Chest/Abdomen/Pelvis: Left lower lobe pulmonary contusion. Acute fractures of left ribs 7 through 10. No acute soft tissue injury is seen involving the abdomen or pelvis. 17 mm low-density focus in the left hepatic lobe. ? HPI/CHIEF COMPLAINT: Fall off of porch ? BRIEF DESCRIPTION OF INJURIES: L 7-10 rib fractures, left lower lobe pulmonary contusion, L knee abrasion ? LAST FLUIDS/MEAL: last night ? CODE STATUS: Not discussed ? ALLERGIES ALLERGIES No Known Allergies Prescriptions Prior to Admission ? (Not in a hospital admission) DATE OF LAST TETANUS: n/a ? There is no immunization history on file for this patient. PAST MEDICAL HISTORY PAST MEDICAL HISTORY Diagnosis Date - Heart attack (HCC) ? - High cholesterol ? ? PAST SURGICAL HISTORY PAST SURGICAL HISTORY Procedure Laterality Date - ANGIOPLASTY HX ? ? ? with cardiac stent x1 - APPENDECTOMY HX ? ? - TONSILLECTOMY HX ? ? ? SOCIAL HISTORY Social History Marital status: Spouse name: Years of education: Number of children: ? Social History Main Topics Smoking status: Current Every Day Smoker Packs/day: 1.00 Years: 0.00 Types: Cigarettes Drug use: No ? ROS: Is the patient having any pain? Yes LOCATION: L chest wall Constitutional: Negative Eye/Ear/Nose: Negative Respiratory: Negative Cardiovascular: Negative GI/Liver/Biliary: Negative Genitourinary: Negative Psychiatric: Negative Neurologic: Negative Musculoskeletal: Negative Integument: Negative Endocrine: Negative Heme/Lymph: Negative ? ? Objective PRIMARY SURVEY AIRWAY: Patent BREATHING: no resp distress on NC- 95%SpO2 CIRCULATION: PT/DP palpable, Radials palpable DISABILITY: Eye: 4=Spontaneous Verbal: 5=Oriented and Converses Motor: 6=Obeys Commands Total GCS: 15=4 Resp Rate: 10 to 29=4 Syst BP: > than 89=4 REVISED TRAUMA SCORE: 12 EXPOSE / ENVIRONMENT: Not Applicable PROCEDURES: ? SECONDARY SURVEY VITALS: BP 114/79 Pulse 61 Temp 36.8 ?C (98.2 ?F) (Oral) Resp 19 Ht 177.8 cm (5' 10) Wt 83 kg (183 lb) SpO2 96% BMI 26.26 kg/m? NEURO: Alert AND Oriented x 3, GCS 15, Cranial Nerves II-XII Intact, Moves All Extremities, Strength Symmetrical, No Sensory Deficits HEENT: Head: No lacerations or abrasions, no bony step offs, midface stable to palpation, EOMI NECK: No midline pain with palpation, No pain with active ROM, No lacerations/wounds, No JVD, Trachea midline RESPIRATORY: No abrasions or contusions, No crepitus, Equal Excursion, L chest wall TTP CARDIOVASCULAR: Heart rate regular ABDOMEN: Non-distended, No scars or lacerations PELVIC/PERINEAL: Pelvis stable to palpation BACK/SPINE: Thoracolumbar spinal column non-tender, No step off or deformity noted, No external injury noted EXTREMITIES: L knee abrasion RADIOLOGICAL/OTHER TEST DATA: CT H/N/C/A/P ? PRIOR TO ARRIVAL: Imaging obtained in [place] prior to arrival ? IMAGES CT H/N/C/A/P CT Head/Neck: No fracture or hemorrhage. No acute osseous injury is evident. Comment: MRI is more sensitive than CT in detecting cord injury, ligament injury, and epidural hematoma. If there is continued clinical concern for any of these entities, MRI correlation should be considered if possible. ? CT Chest/Abdomen/Pelvis: Left lower lobe pulmonary contusion. Acute fractures of left ribs 7 through 10. No acute soft tissue injury is seen involving the abdomen or pelvis. 17 mm low-density focus in the left hepatic lobe. ? LABS: Most recent labs and imaging results. WBC 10 Hgb 13.8 PLT 183 Cr 1.15 Trop < 0.015 LFTs WNL ? ? Assessment/Plan DIAGNOSES: L sided rib fractures, pulmonary contusion ? TREATMENT/EVALUATION PLANS: -Admit SICU ? Neuro -Neurochecks -Pain control: tylenol, lidocaine patches, tramadol, prn morphine ? CV: -Tele -HDS -Restart ASA/Plavix 07/28 pending stable CXR -will need medicine consult on tx to floor ? PULM: -2V CXR in am -IS -duonebs -wean supplemental O2 as able -pain control ? GI: -cardiac diet ? : -strict Is/Os -prn electrolyte replacement ? MSK -SCDs -Ambulation ? ID: -stable ? Heme: -Monitor CBCD ? PPX: SCDs, LVX ? ED DISPOSITION: To ICU ? FINAL INJURIES: No new injuries were identified after physical examination and review of final radiological reading(s) of all studies. ? Plan of care discussed with Staff SICU Surgeon: Dr. Herrera at 1:13 PM ? SENIOR RESIDENT NOTE: ? ATTENDING NOTE: ? SIGNATURE: Zunilda Holloway MD PATIENT NAME: Janett Vuong DATE: July 27, 2018 TIME: 12:55 PM PAGER/CONTACT #: ? Revision History As above Delayed note signing Elderly patient with multiple left rib fractures and pulmonary contusions High risk for developing pulmonary complications and respiratory failure requiring mechanical ventilation Admit to SICU Aggressive pul toilet Pain control SCD Repeat CXR in AM I provided 35 minutes of critical care services which were necessary due to above specified injuries and illnesses. This patient has a high probability of sudden, clinical significant deterioration, which required the highest level of care and preparedness to intervene urgently. I managed and supervised life or organ supporting interventions that require frequent assessments. This time does not include time devoted to teaching and to any procedure I billed separately. I have personally seen and examined this patient and participated in the venegas components of this encounter with the multi-disciplinary ICU team. I discussed the management of this case with the resident and reviewed/confirmed their documentation, attached or in separate note. I personally reviewed today's actual images, the associated image reports, and current labs. I supervised the ordering of additional testing, imaging, labs, and/or consultations. The patient and/or family were fully informed of the findings and plan of care. They had the opportunity to ask questions and raise any issues of concern, all of which were answered and dealt with by me to their stated satisfaction. The critical care treatment was mainly directed to address the following issues: (R04.2) Hemoptysis (primary encounter diagnosis) (R74.8) Elevated troponin Management included sedation, pain control and ventilation assessment including need for ventilator, weaning and/or extubation as indicated. Management of critical care illnesses are edited above by me, including system by system plan and are not only limited to infectious disease and tailoring the antibiotic therapy, nutrition assessment and supplementation, electrolyte correction and prevention of ICU related complications using ventilator bundle, sedation holiday and assessment and removal of lines and tubes where indicated. SIGNATURE: Josiah Herrera MD PATIENT NAME: Janett Vuong DATE: July 28, 2018 TIME: 9:54 AM ED PROV NOTE Observed: 07/27/2018 Status: COMPLETED Source: [place] 10:52 AM [facility] OTHER CAMPUS REPOSITORY O ID: [id number] Author: Jagruti Dominguez DO Service: Emergency Medicine Author Type: Physician Type: ED Provider Notes Filed: 08/01/2018 7:01 AM Note Text: I performed a history and physical examination of the patient and discussed the management with the resident. I reviewed the resident's note and agree with the documented findings and plan of care. The patient is a 68-year-old male presenting to the emergency department as a transfer from [facility] for trauma evaluation. Around 10 PM last night, the patient fell off of his porch into an air conditioning unit, landing onto his left side. He subsequently sustained four rib fractures and a pulmonary contusion. The fractures involve the left seventh through 10th ribs. On exam, the patient's vital signs are stable. His respirations are symmetric and unlabored. SPO2 is 97% on room air. The patient does appear uncomfortable secondary to pain. Heart is regular rate and rhythm, sinus are auscultated. No murmurs, rubs, or gallops. Lungs are clear auscultation bilaterally. Slightly diminished in the lower lung sommer. The patient has tenderness upon palpation to the left mid to inferior lateral ribs. No signs of external trauma. No crepitance. Abdomen is soft, nontender, nondistended. No midline pulsatile mass or hernia. No CVA tenderness. Pelvis is stable. No midline neck or back tenderness to palpation, step-offs, crepitance, or deformities. The patient moves all extremities equally. No focal neuro deficits. The patient is administered analgesia. A trauma consult has been placed. Critical Care I spent a total of 30 minutes of critical care time in the evaluation and management of this patient. This was necessary to treat or prevent deterioration of the following condition(s): Multiple trauma, which the patient had and/or has a high probability of suddenly developing. The patient received Consultation by trauma during the time that critical care was provided.I discussed the plan of care with the Resident and agree with the findings documented. Critical care time excludes separately billed procedures. Jagruti Angelica, DO Jagruti Sandhukennethflorencio, DO 07/27/18 1056 Jagruti Boggsmirian, 08/01/18 0701 HISTORY PHYSICAL Observed: 07/27/2018 Status: COMPLETED Source: [place] 10:32 AM [facility] OTHER CAMPUS REPOSITORY O ID: [id number] Author: Zunilda Holloway Service: Trauma Author Type: Resident Type: HANDP Filed: 07/27/2018 3:00 PM Note Text: Attestation signed by Alondra Ortega at 07/28/2018 2:12 PM Attending Note I evaluated the patient and personally participated in the venegas components. I agree with the resident's findings and plan as documented and have discussed the case and management of the patient's care with the resident. Signature: Alondra Ortega MD Date: 07/7018 Time: 2:11 PM TRAUMA HANDP [facility] ARRIVAL DATE: 07/27/2018 ARRIVAL TIME: 0915 CATEGORY: Level 3 INJURY DATE: 07/26/18 INJURY TIME: evening Subjective This is a 68 year old White male- Transfer from [place]. GCS at Scene was 15. Patient presents s/p fall from porch onto AC unit yesterday evening. Denies LOC. On ASA and Plavix for h/o CAD s/p cardiac stent. Complains of Left sided chest pain s/p fall.States that he got dizzy and fell off of his porch ~3 feet onto his AC unit. Reports prior episodes of dizziness without syncope, but denies CP/SOB or any other symptoms prior to fall. States that he was ambulatory after the fall. Denies head trauma. Endorses L sided chest pain, but denies SOB, DELAROSA, nausea, emesis, abdominal pain, weakness, numbness, vision changes. Has hx of MVP + Cardiac Stents, appendectomy. +daily smoker- reports 1ppd. CT Head/Neck: No fracture or hemorrhage. No acute osseous injury is evident. Comment: MRI is more sensitive than CT in detecting cord injury, ligament injury, and epidural hematoma. If there is continued clinical concern for any of these entities, MRI correlation should be considered if possible. CT Chest/Abdomen/Pelvis: Left lower lobe pulmonary contusion. Acute fractures of left ribs 7 through 10. No acute soft tissue injury is seen involving the abdomen or pelvis. 17 mm low-density focus in the left hepatic lobe. HPI/CHIEF COMPLAINT: Fall off of porch BRIEF DESCRIPTION OF INJURIES: L 7-10 rib fractures, left lower lobe pulmonary contusion, L knee abrasion LAST FLUIDS/MEAL: last night CODE STATUS: Not discussed ALLERGIES No Known Allergies (Not in a hospital admission) DATE OF LAST TETANUS: n/a There is no immunization history on file for this patient. PAST MEDICAL HISTORY Diagnosis Date - Heart attack (HCC) - High cholesterol PAST SURGICAL HISTORY Procedure Laterality Date - ANGIOPLASTY HX with cardiac stent x1 - APPENDECTOMY HX - TONSILLECTOMY HX Social History Marital status: Spouse name: Years of education: Number of children: Social History Main Topics Smoking status: Current Every Day Smoker Packs/day: 1.00 Years: 0.00 Types: Cigarettes Drug use: No ROS: Is the patient having any pain? Yes LOCATION: L chest wall Constitutional: Negative Eye/Ear/Nose: Negative Respiratory: Negative Cardiovascular: Negative GI/Liver/Biliary: Negative Genitourinary: Negative Psychiatric: Negative Neurologic: Negative Musculoskeletal: Negative Integument: Negative Endocrine: Negative Heme/Lymph: Negative Objective PRIMARY SURVEY AIRWAY: Patent BREATHING: no resp distress on NC- 95%SpO2 CIRCULATION: PT/DP palpable, Radials palpable DISABILITY: Eye: 4=Spontaneous Verbal: 5=Oriented and Converses Motor: 6=Obeys Commands Total GCS: 15=4 Resp Rate: 10 to 29=4 Syst BP: > than 89=4 REVISED TRAUMA SCORE: 12 EXPOSE / ENVIRONMENT: Not Applicable PROCEDURES: SECONDARY SURVEY VITALS: BP 114/79 Pulse 61 Temp 36.8 ?C (98.2 ?F) (Oral) Resp 19 Ht 177.8 cm (5' 10) Wt 83 kg (183 lb) SpO2 96% BMI 26.26 kg/m? NEURO: Alert AND Oriented x 3, GCS 15, Cranial Nerves II-XII Intact, Moves All Extremities, Strength Symmetrical, No Sensory Deficits HEENT: Head: No lacerations or abrasions, no bony step offs, midface stable to palpation, EOMI NECK: No midline pain with palpation, No pain with active ROM, No lacerations/wounds, No JVD, Trachea midline RESPIRATORY: No abrasions or contusions, No crepitus, Equal Excursion, L chest wall TTP CARDIOVASCULAR: Heart rate regular ABDOMEN: Non-distended, No scars or lacerations PELVIC/PERINEAL: Pelvis stable to palpation BACK/SPINE: Thoracolumbar spinal column non-tender, No step off or deformity noted, No external injury noted EXTREMITIES: L knee abrasion RADIOLOGICAL/OTHER TEST DATA: CT H/N/C/A/P PRIOR TO ARRIVAL: Imaging obtained in [place] prior to arrival IMAGES CT H/N/C/A/P CT Head/Neck: No fracture or hemorrhage. No acute osseous injury is evident. Comment: MRI is more sensitive than CT in detecting cord injury, ligament injury, and epidural hematoma. If there is continued clinical concern for any of these entities, MRI correlation should be considered if possible. CT Chest/Abdomen/Pelvis: Left lower lobe pulmonary contusion. Acute fractures of left ribs 7 through 10. No acute soft tissue injury is seen involving the abdomen or pelvis. 17 mm low-density focus in the left hepatic lobe. LABS: Most recent labs and imaging results. WBC 10 Hgb 13.8 PLT 183 Cr 1.15 Trop < 0.015 LFTs WNL Assessment/Plan DIAGNOSES: L sided rib fractures, pulmonary contusion TREATMENT/EVALUATION PLANS: -Admit SICU Neuro -Neurochecks -Pain control: tylenol, lidocaine patches, tramadol, prn morphine CV: -Tele -HDS -will restart ASA/Plavix 07/28 pending stable CXR -will need medicine consult on tx to floor PULM: -2V CXR in am -IS -duonebs -wean supplemental O2 as able -pain control GI: -cardiac diet : -strict Is/Os -prn electrolyte replacement MSK -SCDs -Ambulation ID: -stable Heme: -Monitor CBCD PPX: SCDs, LVX ED DISPOSITION: To ICU FINAL INJURIES: No new injuries were identified after physical examination and review of final radiological reading(s) of all studies. Plan of care discussed with Staff Trauma Surgeon: Dr. Ortega at (time) 1:04 PM SENIOR RESIDENT NOTE: ATTENDING NOTE: SIGNATURE: Zunilda Holloway MD PATIENT NAME: Janett Vuong DATE: July 27, 2018 TIME: 12:55 PM PAGER/CONTACT #: [email or web address] Observed: 07/27/2018 Status: F Source: [place] 9:55 AM [facility] OTHER CAMPUS REPOSITORY NAME : JANETT VUONG PID : [id number] : 1950 Gender : Male Race : ORD : Procedure Date : Jul 27 2018 09:55 Edit Date : Jul 27 2018 17:32 Diagnosis:NORMAL SINUS RHYTHM POSSIBLE LEFT ATRIAL ENLARGEMENT INCOMPLETE RIGHT BUNDLE BRANCH BLOCK INFERIOR INFARCT , AGE UNDETERMINED ABNORMAL ECG WHEN COMPARED WITH ECG OF 15-MAR-2004 05:24, INFERIOR INFARCT IS NOW PRESENT Confirmed by DO Dominguez Georgia ([id number]) on 07/27/2018 5:32:20 PM Ventricular Rate : 71 BPM Atrial Rate : 71 BPM P-R Interval : 142 ms QRS Duration : 96 ms Q-T Interval : 388 ms QTC Calculation(Bezet) : 421 ms P Paulina : 72 degrees R Paulina : 9 degrees T Paulina : 35 degrees Test Reason : Location : 4 : [place] [address] Overread By : DO Dominguez Georgia Editted By : DO Dominguez Georgia Referred By : , Acquired by : Renetta Cash ED PROV NOTE Observed: 07/27/2018 Status: COMPLETED Source: [place] 9:43 AM [facility] OTHER CAMPUS REPOSITORY HNO ID: [id number] Author: Kassidy Eli DO Service: Emergency Medicine Author Type: Physician Type: ED Provider Notes Filed: 08/01/2018 1:14 AM Note Text: Attestation signed by Jagruti Dominguez DO at 08/01/2018 7:00 AM Attending Note I evaluated the patient and personally participated in the venegas components. I agree with the resident's findings and plan as documented and have discussed the case and management of the patient's care with the resident. Signature: Jagruti Dominguez DO Date: 08/01/2018 Time: 7:00 AM ED Provider Note Patient Name: Janett Vuong SERVICE DATE: 07/27/18 History Patient presents with: Rib Injury: the patient arrives via ems from [facility], fell off a porch last night into an air conditioning unit +dizziness, -loc, has left rib fx 7-10 with left lower lung contusion, on plavix, here for further eval, a/o x3 on arrival, no distress noted 68-year-old male presenting as a trauma consult from [facility] following a fall from his porch in which he struck the left side of his chest against an air conditioning unit resulting in fractures of ribs 7 through 10 on the left side with a left-sided lung contusion. On arrival the patient is afebrile and hemodynamically stable, reporting 8/10 pain but otherwise in no distress. Reports that he is taking shallow breaths secondary to rib pain, does not feel short of breath. Labs from outside hospital reveal no significant abnormalities, CT scan of the chest revealing rib fractures with contusion. PAST MEDICAL HISTORY Diagnosis Date - Heart attack (HCC) - High cholesterol PAST SURGICAL HISTORY Procedure Laterality Date - ANGIOPLASTY HX with cardiac stent x1 - APPENDECTOMY HX - TONSILLECTOMY HX No family history on file. Social History Social History Main Topics - Smoking status: Current Every Day Smoker Packs/day: 1.00 Types: Cigarettes - Smokeless tobacco: Not on file - Alcohol use Not on file Comment: 1-2x/weeks - Drug use: No - Sexual activity: Not on file ALLERGIES No Known Allergies Review of Systems Constitutional: Negative for chills, fatigue and fever. HENT: Negative for congestion, rhinorrhea, sinus pressure and sore throat. Eyes: Negative for photophobia and visual disturbance. Respiratory: Negative for cough, chest tightness, shortness of breath and wheezing. Splinting respirations secondary to rib pain, denies shortness of breath. Cardiovascular: Positive for chest pain (sided rib pain secondary to fractures). Negative for palpitations and leg swelling. Gastrointestinal: Negative for abdominal distention, abdominal pain, constipation, diarrhea, nausea and vomiting. Genitourinary: Negative for decreased urine volume, difficulty urinating, dysuria, frequency, hematuria and urgency. Musculoskeletal: Negative for arthralgias, back pain, myalgias and neck pain. Skin: Negative for color change and rash. Neurological: Negative for dizziness, weakness, light-headedness and headaches. Psychiatric/Behavioral: Negative for agitation and confusion. Physical Exam BP 134/72 Pulse 82 Temp (Src) 97.5 (Temporal Artery) Resp 18 Ht 5' 10 (1.78m) Wt 177 lb 12.8 oz (80.7kg) SpO2 93% BMI 25.51 kg/(m2). Physical Exam Constitutional: He is oriented to person, place, and time. He appears well-developed and well-nourished. No distress. Elderly, male, sitting up in hospital bed holding folded blanket to side. Grimacing in pain on manipulation of his chest wall but otherwise in no acute distress. Afebrile and hemodynamically stable, answering questions appropriately. HENT: Head: Normocephalic and atraumatic. Right Ear: External ear normal. Left Ear: External ear normal. Nose: Nose normal. Mouth/Throat: Oropharynx is clear and moist. No oropharyngeal exudate. Eyes: Pupils are equal, round, and reactive to light. Conjunctivae and EOM are normal. Right eye exhibits no discharge. Left eye exhibits no discharge. Neck: Normal range of motion. Neck supple. Cardiovascular: Normal rate, regular rhythm, normal heart sounds and intact distal pulses. No murmur heard. Pulses: Radial pulses are 2+ on the right side, and 2+ on the left side. Dorsalis pedis pulses are 2+ on the right side, and 2+ on the left side. Pulmonary/Chest: Effort normal and breath sounds normal. No respiratory distress. He has no wheezes. He has no rales. He exhibits tenderness (left lateral chest wall tenderness secondary to rib fractures) and bony tenderness. He exhibits no crepitus, no edema, no deformity, no swelling and no retraction. Abdominal: Soft. Bowel sounds are normal. He exhibits no distension. There is no tenderness. There is no rebound and no guarding. Musculoskeletal: Normal range of motion. He exhibits no edema or tenderness. Lymphadenopathy: He has no cervical adenopathy. Neurological: He is alert and oriented to person, place, and time. He has normal strength. No cranial nerve deficit or sensory deficit. Gait normal. Skin: Skin is warm and dry. Capillary refill takes less than 2 seconds. He is not diaphoretic. No erythema. Psychiatric: He has a normal mood and affect. His behavior is normal. Thought content normal. Nursing note and vitals reviewed. Diagnostic Testing Procedures ED Course / Clinical Impression ED Course as of Aug 01 114 Kassidy Eli's Documentation Sun Jul 27, 2018 0940 Trauma resident aware of patient arrival. Clinical Impressions as of Aug 01 114 Contusion of left lung, initial encounter Closed fracture of multiple ribs of left side, initial encounter MDM / Disposition / Plan Janett Vuong is a 68-year-old male presenting as a trauma consult from [facility] following a fall off his porch resulting in fractures of his left seventh through 10th ribs and a lung contusion. He is afebrile and hemodynamically stable on arrival to the department, complaining of 8/10 following physical exam. Patient was treated with morphine in the emergency department. Trauma team was consult it secondary to patient's injuries and referral on transfer. She reports a mechanical fall in which she leaned over and lost balance, falling into an air conditioning unit His porch. Workup from the outlying hospital reveals no significant lab abnormalities and CT chest reveals fractures of ribs 7 through 10 with underlying lung contusion. Trauma team to admit patient for further observation and management of his multiple rib fractures, admitted to the SICU in stable condition. EKG ordered in the department reveals normal sinus rhythm with an incomplete right bundle branch block and age undetermined inferior infarct?inferior infarct is new but otherwise EKG is unchanged. No Nicci of acute ischemia or impending infarct. The patient was ADMITTED TO: ICU SICU. Condition at time of disposition: stable SIGNATURE: Kassidy Eli, DO Garciaysa Sania Eli, DO 08/01/18 0114 Jagruti Dominguez, DO 08/01/18 0700 ED NOTE Observed: 07/27/2018 Status: COMPLETED Source: [place] 9:33 AM [facility] REPOSITORY HNO ID: [id number] Author: Coco GageRn) MARCE Gaviria Service: Emergency Medicine Author Type: Registered Nurse Type: ED Notes Filed: 07/27/2018 9:33 AM Note Text: Pt placed on telemetry monitor, noninvasive blood pressure cuff and continuous pulse oximetry for clinical monitoring ED NOTE Observed: 07/27/2018 Status: COMPLETED Source: [place] 9:15 AM [facility] REPOSITORY HNO ID: [id number] Author: Gurmeet (Medic) Candace [place] Service: (none) Author Type: Resident Doctor and Mrp Controller Type: ED Notes Filed: 07/27/2018 9:15 AM Note Text: Bed: 10-ED Expected date: 07/27/18 Expected time: 9:10 AM Means of arrival: [facility] Comments: [place] [facility] EMERGENCY DEPARTMENT Observed: 07/27/2018 Status: F Source: [place] SUMMARY 7:41 AM [facility] REPOSITORY [facility] Medical Records Department [address] [place] [address] Emergency Department Summary 07/27/18 0707 MR#: [id number] Acct: [id number] Name: JANETT VUONG Rep #: [id number] : 1950 68 From: Zaki Smtih MD PCP: Care Physician, No Primary Status: REG ER - ER Visit Summary Date of Service: 07/27/18 Chief Complaint: Broken ribs History of Present Illness: The patient is a 68 M with suspected broken ribs. He got up around 10:30 PM last night to smoke a cigarette. He bent forward to put out a cigarette. He fell off his porch and onto an air conditioning unit. He injured his left chest. He is unsure if he lost consciousness. He denies head or neck pain. Denies any neurologic symptoms. He does take aspirin and Plavix. Denies any other injuries or complaints. Physical Examination: Patient is afebrile and vital signs are unremarkable. Head and neck are atraumatic. Heart regular rate and rhythm. Lungs clear. Left anterior chest wall is tender to palpation. Abdomen tender to palpation in the left upper quadrant. Extremities atraumatic. Cranial nerves grossly intact. Moves all extremities. Good pulses. Good skin color. Test Results: EKG showed sinus rhythm at a rate of 73. Troponin normal. CBC normal. Glucose 170. Urinalysis pending. CT head and neck showed no acute findings. CT chest, abdomen, and pelvis showed a fracture of the left ribs 7, 8, 9, and 10. He has an underlying left lower lobe pulmonary contusion. Emergency Department Course and Treatment: Patient was seen on arrival. He was treated with fluids, morphine, and Zofran. Workup was unremarkable except for the rib fractures and pulmonary contusion. Given his age, symptoms, and mechanism, I am transferring to a trauma center. After speaking with the patient, I contacted [facility]. Dr. Ceron accepted the patient to the emergency department. Treatment Plan: As above Disposition: Transfer to [facility] Impression: 1. Left rib fractures 7, 8, 9, and 10 2. left pulmonary contusion This note was generated with My[employer] dictation software. It may contain incorrect words, spelling, and punctuation that were not noted in review of the chart prior to signing ED Disposition - Plan for ED Patient: Chief Complaint: Fall Referrals: Care Physician,No Primary [Primary Care Provider] - What to do if you have Problems For any increased pain, shortness of breath, bleeding, nausea or vomiting, chest pain, or any unexpected problems, contact your Primary Care Provider. Call [facility] ([phone]) or report to the closest Emergency Room. Call 911 if necessary. 07/27/18 0741 <Electronically signed by Zaki Smith MD> Date Zaki Ureña Signature (If Indicated): Date CC: No Primary Care Physician URINALYSIS, COMPLETE Collected: 07/27/2018 Status: F Source: [place] 7:05 AM [facility] REPOSITORY Order Comment: How was Urine Obtained? BUSINESS AND FINANCIAL COUNSEL TO SPECIFY TYPE CODE TESTS RESULT OUT OF RANGE REFERENCE UNITS LAB L400.3000 Yellow COLOR Normal Yellow LAB L400.3050 Clear Normal CLARITY Clear LAB L400.3200 Normal mg/dl Normal GLUCOSE, UR Normal LAB L400.3300 Negative mg/dL Normal BILIRUBIN URINE Negative LAB L400.3400 Negative mg/dl Normal KETONE UR Negative LAB L400.3465 1.002-1.030 Normal SP.GR. DIPSTX 1.010 LAB L400.3550 5.0 - 8.0 pH UR Normal 7.0 LAB L400.3600 Negative mg/dl PROT Normal DIPSTX Negative LAB L400.3700 Normal mg/dl Normal UROBILI Normal LAB L400.3750 Negative Normal NITRITE UR Negative LAB L400.3780 Negative /ul Normal OCCULT BLOOD-UR Negative LAB L400.3800 Negative /ul LEUK Normal ESTERASE Negative LAB L400.4050 0-5 /hpf WBC 0 Normal SEEN LAB L400.4100 0-5 /hpf 0 Normal RBC-UA SEEN LAB L400.4150 0-5 /hpf SQUAM 0 Normal EPI SEEN LAB L400.4300 None Seen /hpf 0 Normal BACTERIA SEEN LAB L400.4350 <or=2+ /hpf 0 Normal MUCUS, URINE SEEN Performed By: #### L400.0001 #### [facility] [address] [place], [place], [id number] CBC W/DIFF, AUTOMATED Collected: 07/27/2018 Status: F Source: [place] 5:00 AM [facility] REPOSITORY TYPE CODE TESTS RESULT OUT OF RANGE REFERENCE UNITS LAB L100.1000 4.4-11.0 K/mm3 Normal WBC 10.0 LAB L100.1200 4.6-6.2 M/mm3 Normal RBC 4.61 LAB L100.1300 13.0-16.5 g/dl Normal HGB 13.8 LAB L100.1400 40-54 % Normal HCT 40.2 LAB L100.1500 80-94 fL Normal MCV 87.2 LAB L100.1600 27.0-32.0 pg Normal MCH 29.9 LAB L100.1700 32-36 g/gl Normal MCHC 34.3 LAB L100.1810 11.6-14.6 % Normal RDW CV 13.3 LAB L100.1820 35.1-43.9 fl Normal RDW SD 42.4 LAB L100.1900 150-450 K/mm3 Normal PLT 183 LAB L100.2000 6.2-12.0 fl Normal MPV 9.8 LAB L100.2100 47-70 % High NEUT% 80.0 LAB L100.2200 19-41 % Low LY% 10.9 LAB L100.2300 0-10 % Normal MONO% 7.1 LAB L100.2400 0-5 % Normal EO% 1.7 LAB L100.2500 0-1 % Normal BASO% 0.1 LAB L100.2550 0.0-0.9 % Normal IM GRAN % 0.200 Result Comment: IG% - Immature Granulocytes (promyelocytes, myelocytes and metamyelocytes) > 1% indicates that a LEFT SHIFT is Present. LAB L100.2620 2.0-7.7 X10 3/uL High Absolute Neut 8.0 LAB L100.2720 0.83-4.51 X10 3/ul Normal Absolute Lymph 1.09 Performed By: #### L100.0100 #### [facility] [address] [place], [place], [address] BASIC METABOLIC Collected: 07/27/2018 Status: F Source: QAMAR PROFILE ([facility]) 5:00 AM [facility] REPOSITORY TYPE CODE TESTS RESULT OUT OF RANGE REFERENCE UNITS LAB L501.0100 74-106 mg/dL High GLU 170 Result Comment: Fasting Glucose result greater than or equal to 126 mg/dL suggests DIABETES MELLITUS per A.D.A. criteria. Please note revised GLUCOSE reference range effective 2017. LAB L501.1000 7-18 mg/dL Normal BUN 15 LAB L501.1100 0.70-1.30 mg/dL Normal CREAT,SERUM 1.15 Result Comment: The validity of the calculated GFR AND GFRAA in patients over 70 years has not been determined. Clinical correlation is essential. LAB L501.1110 >60 mL/min Normal EST GFR 68 Result Comment: Non- GFR Calc LAB L501.1115 >60 mL/min Normal EST GFR - AA 82 Result Comment: GFR Calc LAB L501.1255 ml/min Normal Estimated CRCL 65.24 LAB L501.1300 10-20 RATIO Normal BUN/CRE 13.0 LAB L501.2200 8.5-10 mg/dL Normal .1 CA 8.7 LAB L501.5300 136-14 mmol/L Normal 5 NA 137 LAB L501.5600 3.5-5. mmol/L Normal 1 K 4.4 LAB L501.5900 98-107 mmol/L Normal CL 102 LAB L501.6100 21.0-3 mmol/L Normal 2.0 CO2 25.0 LAB L501.6200 5-15 Normal GAP 10 Performed By: #### L500.2500, L501.4010 #### [facility] [address] [facility] [address]. [place], [place], [address] TROPONIN-I Collected: 07/27/2018 Status: F Source: [place] 5:00 AM [facility] REPOSITORY TYPE CODE TESTS RESULT OUT OF RANGE REFERENCE UNITS LAB L501.4010 <0.045 ng/mL Normal < 0.015 TROPONIN-I Result Comment: TROPONIN-I EXPECTED VALUES <0.045 Negative 0.045 - 0.590 Consistent with Cardiac Damage > OR = 0.600 Critical Value Not every elevated troponin is indicative of MD. These values should be used with clinical judgement in examining the patient's clinical picture for diagnosis. To establish a diagnosis of MD versus myocardial injury, there must be a demonstrated rise and/or fall in the troponin values, in addition to ischemic symptoms, EKG changes, new regional wall motion abnormality, and/or angiographical evidence. PLEASE NOTE: REFERENCE RANGES EDITED 18 Performed By: #### L500.2500, L501.4010 #### [facility] [address] [facility] [place], [address] BRAIN/HEAD WITHOUT Observed: 07/27/2018 Status: F Source: [place]AR CONTRAST 4:59 AM [facility] REPOSITORY [facility] Imaging Services [address] [place] [address] Brain/Head without Contrast MR#: [id number] Acct: [id number] Name: JANETT VUONG Rep #: [id number] : 1950 M 68 From: Farhan Levine MD PCP: Care Physician, No Primary Status: REG ER Study: Brain/Head without Contrast Date of Exam: 07/27/18 Exam# [id number] Ordering Dr: Zaki Smith MD STUDY: CT BRAIN WITHOUT CONTRAST REASON FOR EXAM: Male, 68 years old. Fell off porch RADIATION DOSAGE (If Supplied By Facility): CTDIvol = ( 44.99 ) mGy, DLP = ( 812.98 ) mGycm TECHNIQUE: Transaxial CT imaging of the brain was performed without administration of intravenous contrast material. Individualized dose optimization techniques were used for this CT. COMPARISON: None. FINDINGS: Normal soft tissue structures. Normal calvarium. Normal size ventricles and extra-axial spaces for the patient's age. There are areas of decreased attenuation within the white matter tracts of the supratentorial brain, consistent with microvascular disease changes. Age-related changes of the basal ganglia. Normal brainstem. Normal cerebellum. There is no intracranial hemorrhage. There are no findings of an acute ischemic infarction. Bilateral ethmoid sinus disease. Right sphenoid sinus disease. CT/Brain/Head without Contrast IMPRESSION: No fracture or hemorrhage. Electronically Signed: Farhan Levine MD at 6:28 EDT Tel , Service support , CC: No Primary Care Physician; Zaki Smith MD Railway Switchman: Signed SPINE CERVICAL Observed: 07/27/2018 Status: F Source: [place] WITHOUT CONTRAS 4:59 AM [facility] REPOSITORY [facility] Imaging Services [address] [place] [address] Spine Cervical without Contras MR#: [id number] Acct: [id number] Name: JANETT VUONG Rep #: [id number] : 1950 M 68 From: Farhan Levine MD PCP: Care Physician, No Primary Status: REG ER Study: Spine Cervical without Contras Date of Exam: 07/27/18 Exam# [id number] Ordering Dr: Zaki Smith MD STUDY: CT CERVICAL SPINE WITHOUT CONTRAST REASON FOR EXAM: Male, 68 years old. Trauma, fell off porch RADIATION DOSAGE (If Supplied By Facility): CTDIvol = ( 25.54 ) mGy, DLP = ( 518.29 ) mGycm TECHNIQUE: High resolution transaxial imaging was performed without contrast material. Sagittal and coronal images were reconstructed. Individualized dose optimization techniques were used for this CT. COMPARISON: None FINDINGS: Normal craniovertebral junction. Degenerative changes are present involving the atlantodental articulation. Normal odontoid process. Normal cervical lordosis. Normal vertebral bodies and posterior osseous elements. Diffuse degenerative disease is present. No acute fractures or dislocations are seen. Carotid calcifications. CT/Spine Cervical without Contras IMPRESSION: No acute osseous injury is evident. Comment: MRI is more sensitive than CT in detecting cord injury, ligament injury, and epidural hematoma. If there is continued clinical concern for any of these entities, MRI correlation should be considered if possible. Electronically Signed: Farhan Levine MD at 6:31 EDT Tel , Service support , CC: No Primary Care Physician; Zaki Smith MD Railway Switchman: Signed CHEST WITH CONTRAST Observed: 07/27/2018 Status: F Source: [place] 4:59 AM [facility] REPOSITORY [facility] Imaging Services [address] [place] [address] Chest WITH Contrast MR#: [id number] Acct: [id number] Name: JANETT VUONG Rep #: [id number] : 1950 M 68 From: Farhan Levine MD PCP: Care Physician, No Primary Status: REG ER Study: Chest WITH Contrast Date of Exam: 07/27/18 Exam# [id number] Ordering Dr: Zaki Smith MD STUDY: CT CHEST WITHOUT CONTRAST REASON FOR EXAM: Male, 68 years old. Fall off porch RADIATION DOSAGE (If Supplied By Facility): CTDIvol = ( 21.24 ) mGy, DLP = ( 2365.95 ) mGycm TECHNIQUE: Transaxial imaging was performed without the administration of intravenous contrast material. Individualized dose optimization techniques were used for this CT. COMPARISON: None. FINDINGS: Left lower lobe hemorrhage contusion. Bibasilar atelectasis. Calcified pleural plaques. Normal heart and pericardium. Normal mediastinum. Normal hilar regions. Normal unenhanced pulmonary arteries. Normal aorta arch and descending thoracic aorta. Acute fractures of left ribs 7 through 10. There is no demonstrated abnormality of the visualized upper abdomen. CT/Chest WITH Contrast IMPRESSION: Left lower lobe pulmonary contusion. Acute fractures of left ribs 7 through 10. Electronically Signed: Farhan Levine MD at 6:42 EDT Tel , Service support , CC: No Primary Care Physician; Zaki Smith MD Railway Switchman: Signed ABDOMEN/PELVIS W IV CONT Observed: 07/27/2018 Status: F Source: [place] ONLY 4:59 AM [facility] REPOSITORY [facility] Imaging Services [facility] [place] [address] Abdomen/Pelvis W IV Cont ONLY MR#: [id number] Acct: [id number] Name: JANETT VUONG Rep #: [id number] : 1950 M 68 From: Farhan Levine MD PCP: Care Physician, No Primary Status: REG ER Study: Abdomen/Pelvis W IV Cont ONLY Date of Exam: 07/27/18 Exam# [id number] Ordering Dr: Zaki Smith MD STUDY: CT ABDOMEN AND PELVIS WITH CONTRAST REASON FOR EXAM: Male, 68 years old. Fell off porch RADIATION DOSAGE (If Supplied By Facility): CTDIvol = ( 21.24 ) mGy, DLP = ( 2365.95 ) mGycm TECHNIQUE: Transaxial images were obtained from the dome of the diaphragm to the symphysis pubis without oral contrast. 100 ml of Isovue 300 contrast was administered. Sagittal and coronal images were reconstructed. Individualized dose optimization techniques were used for this CT. COMPARISON: None. FINDINGS: The visualized lung bases are unremarkable. The visualized portions of the heart are within normal limits. Indeterminate 17 mm low-density focus in the left hepatic lobe. Normal gallbladder and extrahepatic biliary system. Normal spleen. Normal pancreas. Normal bilateral adrenal glands. 2 cm right renal cyst. Normal left kidney. Normal visualized stomach. Normal small intestine. Normal colon. There is non-visualization of the appendix. There is diffuse atherosclerotic calcification of the abdominal aorta, without a demonstrated aneurysm. Normal inferior vena cava. Normal retroperitoneum. Normal urinary bladder. Normal abdominal wall. Acute fractures of left ribs [address]/Abdomen/Pelvis W IV Cont ONLY IMPRESSION: Acute fractures of left ribs 7 through 10. No acute soft tissue injury is seen involving the abdomen or pelvis. Electronically Signed: Farhan Levine MD at 6:48 EDT Tel , Service support , CC: No Primary Care Physician; Zaki Smith MD Railway Switchman: Signed CARDIOLOGY VISIT Observed: 07/22/2018 Status: F Source: [place] REPORT 2:00 [facility] REPOSITORY [facility] [address] [place] [address] OFFICE VISIT Date of Service: 07/22/18 MR#: [id number] Acct: [id number] Name: JANETT VUONG Rep #: [id number] : 1950 Provider: Xavi Brody MD Age/Sex: 68/M Location: [facility] Status: Signed HPI HPI Chief Complaint: Follow up Details: JANETT VUONG, is a 68 M who presents to the office today for a follow-up visit today. He is a gentleman with a history of coronary artery disease status post angioplasty and stenting of the left anterior descending artery in 2003, hyperlipidemia, and tobacco abuse. He has been doing well since his last visit denying any chest pain or shortness of breath or paroxysmal nocturnal dyspnea or pedal edema he says he occasionally gets dizzy when he gets up quickly from the seated position. He has not had any neck arm or jaw discomfort suggest angina. He has been compliant with all his medications. His physical exam today demonstrates clear lung sommer regular rate and rhythm and no pedal edema. Intake Vital Signs07/22/18 Height 5 ft 10 in 07/22/18 Weight: 182 lb 07/22/18 Body Mass Index (BMI) 26.1 07/22/18 Blood Pressure 132/78 H 07/22/18 Blood Pressure Location Lt brachial Intake Visit Reasons: 6 M FU Hazardous Substances Engineer Required: No Accompanied by: none Is patient in pain?: No Allergies atorvastatin [From Lipitor] Allergy (Severe, Verified 07/17/18 16:09) Muscle aches simvastatin [From Zocor] Adverse Reaction (Severe, Verified 07/17/18 16:09) Hives Medications Aspirin [Aspirin, Baby] 81 mg PO DAILY@0800 03/04/14 [History Confirmed 07/22/18] Nitroglycerin [Nitrostat] 0.4 mg SUBLINGUAL Q5M PRN 03/04/14 [History Confirmed 07/22/18] atenolol 50 mg tablet 50 mg PO DAILY #90 tab 01/09/18 [Rx Confirmed 07/22/18] clopidogrel 75 mg tablet 75 mg PO DAILY #90 tab 01/09/18 [Rx Confirmed 07/22/18] rosuvastatin 5 mg tablet 5 mg PO QHS #90 tab 04/08/18 [Rx Confirmed 07/22/18] [facility] Medical History Essential hypertension (Chronic) Atherosclerosis of wiyot coronary artery of wiyot heart without angina pectoris (Chronic) Hyperlipidemia (Chronic) Headache (Resolved) Myocardial infarction, inferior wall (Resolved 1994) Surgical History History of left heart catheterization (Chronic) Postsurgical percutaneous transluminal coronary angioplasty (PTCA) status (Chronic) History of appendectomy (Resolved) History of tonsillectomy (Resolved) Family History Father CAD (coronary artery disease) Hx CABG Diabetes Myocardial infarction Mother Breast cancer CVA (cerebral vascular accident) Sister Cancer Pancreatic cancer Diabetes Brother Myocardial infarction, Onset Age: 54 Other Family history of CVA Social History Smoking Status: Heavy Smoker (>10/day) alcohol intake: current alcohol intake frequency: a few times a week Alcohol type: hard liquor, beer substance use type: does not use caffeine: Yes Type: coffee Number of servings: 5 what type of physical activity do you participate in: none seatbelt use: always do you feel safe at home: Yes ROS Const Const: Negative for fatigue, weakness, night sweats, excessive sweating, frequent falls, headache(s) or daytime sleepiness Eyes Eyes: Negative for loss of peripheral vision, transient loss of vision, blind spots, double vision or blurry vision ENT ENT: Positive for dizziness; negative for headache(s), balance problems, Nosebleed/epistaxis, tongue swelling or lip swelling Cardio Chest Pain: No Palpitations: No Edema: None Muscle aches with walking: None Resp Respiratory: Negative for SOB at rest, SOB orthopnea\SOB lying down, Cough, paroxysmal nocturnal dyspnea or SOB with activity GI GI: Negative nausea, vomiting, heartburn, black,tarry stools or bright, red blood in stools : Negative for hematuria Musc Musc: Negative for balance problems, muscle aches/ myalgia, muscle weakness or joint pain Skin Skin: Negative non-healing lesions, unusual bruising or rash Neuro Neuro: Positive for dizziness and lightheadedness; negative for weakness, frequent falls, headache(s), double vision, orthostatic symptoms, blurry vision or lack of coordination Ady Hematologic/Lymphatic: Negative for easy bruising or easy bleeding Endo Endo: Negative for fatigue, excessive sweating, cold intolerance, heat intolerance, increased thirst/drinking or hair loss Psych Psych: Negative for anxiety or depression Allergy Allergy/Immunology: Negative for throat swelling, Negative for tongue swelling, Negative for hives, Negative for rash, Negative for lip swelling Cardiology Exam Const Appearance: cooperative, healthy appearing, well developed, well groomed and no acute distress Nutritional Appearance: well nourished and average body habitus Orientation: alert, awake and oriented x3 Head Head: normal to inspection, normocephalic and atraumatic Ears: hearing grossly normal bilaterally and external ears normal Nose: external nose normal, nasal mucous membranes and turbinates normal, nares normal, septum normal, no nasal discharge Face and Sinus: face symmetric Mouth: oral mucosae normal, tongue normal, oropharynx normal and moist mucous membranes Teeth and gingiva: dentition normal Throat: posterior oropharynx normal, tonsils normal and uvula midline Eyes General: appearance normal, both eyes and all related structures Eyelids: eyelids normal Conjunctivae: conjunctivae normal Pupils: PERRL, normal by confrontation and accommodation normal EOM: EOM intact bilaterally Neck Neck: normal visual inspection, trachea midline and no JVD JVD: +5 Carotids: normal carotid upstroke and bounding pulses Chest Chest inspection: normal inspection of the chest, symmetric chest movement and normal respiratory effort Auscultation: Bilateral: Clear to Auscultation Cardio Palpation: normal PMI Rate: regular rate Rhythm: regular rhythm Heart sounds: S1 normal, S2 normal and normal, physiologic split S2; negative rub, gallop or murmur GI GI: normal to inspection, soft, no hepatosplenomegaly and bowel sounds present Neuro General: alert, awake, oriented x3, no focal sensory deficit, gait normal and moves all extremities Skin Skin: no rashes or lesions noted Extremities Pulses: Normal: Right Femoral Pulse, Left Femoral Pulse, Right Dorsalis Pedis Pulse, Left Dorsalis Pedis Pulse, Right Posterior Tibial Pulse, Left Posterior Tibial Pulse, Right Radial Pulse, Left Radial Pulse Lower Extremity Edema: None: Bilateral Musculoskel Musculoskeletal: No joint tenderness Psych Psychological: normal affect Assessment AND Plan 1. Essential hypertension I10 Plan Patient's blood pressure appears to be under good control on the current medical therapy we will continue the same without making any changes. 2. Atherosclerosis of wiyot coronary artery of wiyot heart without angina pectoris I25.10 S/P PTCA of LCX in 1994; PTCA/Stent to LAD in February 2004; Plan He does have a history of known coronary artery disease his last catheterization was almost 14 years ago. He remains quite active and has not had any chest discomfort. His last stress test was in 2007. However due to financial concerns and otherwise he would rather not have any stress testing done at this particular time. We will continue to follow him closely. Should she have any change in symptoms he should not hesitate to let us know. 3. Hyperlipidemia E78.5 Plan He does have a history of hyperlipidemia but his most recent lipid profile demonstrated total cholesterol 165, LDL of 96 and HDL of 54. No changes will be made with respect to his medications. Thank you for allowing me to participate in his care. 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) Coding Level of Care Code Off vis,est,level 3 Diagnoses Essential hypertension I10 Atherosclerosis of wiyot coronary artery of wiyot heart without angina pectoris I25.10 Hyperlipidemia E78.5 Coding Level of Care Code Off vis,est,level 3 Diagnoses Essential hypertension I10 Atherosclerosis of wiyot coronary artery of wiyot heart without angina pectoris I25.10 Hyperlipidemia E78.5 07/22/18 1400 <Electronically signed by Xavi Brody MD> Date Xavi Brody MD Cosigner Signature: Date (if applicable) CC: No Primary Care Physician LIVER PROFILE Collected: 07/21/2018 Status: F Source: [place] 5:44 AM [facility] REPOSITORY TYPE CODE TESTS RESULT OUT OF RANGE REFERENCE UNITS LAB L501.1500 6.4-8.2 g/dL Normal T PROT 6.9 LAB L501.1800 3.2-5.0 g/dL Normal ALB 3.6 LAB L501.1950 2.2-4.2 g/dL Normal GLOB 3.3 LAB L501.4100 15-37 U/L Normal AST 21 LAB L501.4305 45-117 U/L Normal ALK P 79 LAB L501.4405 16-61 U/L Normal ALT 30 LAB L501.4600 0.20-1.00 mg/dL Normal T BILI 0.40 LAB L501.4700 0.00-0.30 mg/dL Normal D BILI 0.13 Performed By: #### L500.3400, L500.4100 #### [facility] [address] [place], [address] LIPID PROFILE Collected: 07/21/2018 Status: F Source: [place] 5:44 AM [facility] REPOSITORY TYPE CODE TESTS RESULT OUT OF RANGE REFERENCE UNITS LAB L501.4900 200 mg/dL Normal CHOL 165 Result Comment: <200 mg/dL Desirable 200-240 mg/dL Borderline >240 mg/dL High Risk LAB L501.5000 mg/dL Normal TRIG 74 Result Comment: The drugs N-Acetylcysteine and Metamizole may falsely depress this assay. Serum Triglycerides Reference Interval Normal <150 mg/dL Borderline high 150 - 199 mg/dL High 200 - 499 mg/dL Very High > or = 500 mg/dL LAB L501.6400 mg/dL Normal HDL 54 Result Comment: The drugs N-Acetylcysteine and Metamizole may falsely depress this assay. Reference Range HDL <40 mg/dL Low HDL Cholesterol HDL >or= 60 mg/dL High HDL Cholesterol LAB L501.6500 0-130 mg/dL Normal LDL 96 LAB L501.6600 5-40 mg/dL Normal VLDL 15 Performed By: #### L500.3400, L500.4100 #### [facility] [address] [place], [place], [address] CARDIOLOGY VISIT Observed: 12/25/2017 Status: F Source: [place] REPORT 3:57 PM [facility] REPOSITORY [facility] [address] [place] [address] OFFICE VISIT Date of Service: 12/25/17 MR#: [id number] Acct: [id number] Name: JANETT VUONG Rep #: [id number] : 1950 Provider: ALICIA Jimenez Age/Sex: 67/M Location: [facility] Status: Signed HPI HPI Details: JANETT VUONG, is a 67 M who presents to the office today for a cardiovascular outpatient follow-up. Patient has a history of coronary artery disease status post previous angioplasty and stenting of the LAD in 2003, tobacco abuse, and hyperlipidemia. Pt. denies chest, jaw, or neck discomfort. His exercise tolerance is stable via walking at work. Pt. denies symptoms of CHF, palpitations, lightheadedness, dizziness, or near syncope. Pt. states having a syncopal episode after standing quickly. He was evaluated and his BP and blood glucose was stable. Pt. denies edema or claudication issues. Pt. denies orthopnea, PND, fever, chills, blood in urine, blood in stool, or unexplainable fatigue. Pt. states some right shoulder pain and concentrated left bicep pain. Intake Vital Signs12/25/17 Height 5 ft 10 in 12/25/17 Weight: 185 lb 12/25/17 Body Mass Index (BMI) 26.5 12/25/17 Blood Pressure 130/80 12/25/17 Blood Pressure Location Lt brachial Intake Visit Reasons: 6 M FU Hazardous Substances Engineer Required: No Accompanied by: None Is patient in pain?: No Allergies atorvastatin [From Lipitor] Allergy (Severe, Verified 12/25/17 13:20) Muscle aches simvastatin [From Zocor] Adverse Reaction (Severe, Verified 12/25/17 13:20) Hives Medications Aspirin [Aspirin, Baby] 81 mg PO DAILY@0800 03/04/14 [History Confirmed 12/24/17] Atenolol [Tenormin (Beta Megan)] 50 mg PO DAILY 03/04/14 [History Confirmed 12/24/17] Clopidogrel Bisulfate [Plavix] 75 mg PO DAILY 03/04/14 [History Confirmed 12/24/17] Nitroglycerin [Nitrostat] 0.4 mg SUBLINGUAL Q5M PRN 03/04/14 [History Confirmed 12/24/17] Rosuvastatin Calcium [Crestor] 5 mg PO QHS 03/04/14 [History Confirmed 12/24/17] Ejection fraction %: 55 to 59 PFSH Medical History Hypertension (Chronic) Atherosclerosis of wiyot coronary artery of wiyot heart without angina pectoris (Chronic) Hyperlipidemia (Chronic) Family history of CVA (Acute) Headache (Acute) Surgical History Postsurgical percutaneous transluminal coronary angioplasty (PTCA) status (Chronic) Family History Father CAD (coronary artery disease) Hx CABG Diabetes Myocardial infarction Mother Breast cancer CVA (cerebral vascular accident) Sister Cancer Pancreatic cancer Diabetes Brother Myocardial infarction, Onset Age: 54 Other Family history of CVA Social History Smoking Status: Current every day smoker alcohol intake: current alcohol intake frequency: a few times a week Alcohol type: hard liquor substance use type: does not use caffeine: Yes Type: coffee what type of physical activity do you participate in: none seatbelt use: always do you feel safe at home: Yes ROS Const Const: Negative for weakness, body ache, fever(s), chills or fatigue ENT ENT: Negative for dizziness Cardio Chest Pain: No Palpitations: No Edema: None Muscle aches with walking: None Resp Respiratory: Negative for SOB with activity, SOB at rest, SOB orthopnea\SOB lying down or paroxysmal nocturnal dyspnea GI GI: Negative nausea, black,tarry stools, bright, red blood in stools or vomiting blood/hematemesis : Negative for hematuria or frequent nighttime urination/ nocturia Musc Musc: Positive for muscle aches/ myalgia (right shoulder and left bicep) Neuro Neuro: Negative for lightheadedness, near syncope, syncope, orthostatic symptoms, weakness or dizziness Endo Endo: Negative for fatigue Cardiology Exam Const Appearance: cooperative, healthy appearing, comfortable and no acute distress Orientation: alert, awake and oriented x3 Head Head: normal to inspection Mouth: oral mucosae normal Neck Neck: no JVD and normal visual inspection Carotids: normal carotid upstroke Chest Chest inspection: normal inspection of the chest and normal respiratory effort Auscultation: Bilateral: Clear to Auscultation Cardio Rate: regular rate Rhythm: regular rhythm Heart sounds: S1 normal and S2 normal; negative rub or gallop GI GI: normal to inspection Neuro General: alert, awake, oriented x3 and CN's II-XI intact bilaterally Skin Skin: no rashes or lesions noted Extremities Pulses: Normal: Right Posterior Tibial Pulse, Left Posterior Tibial Pulse, Right Radial Pulse, Left Radial Pulse Lower Extremity Edema: None: Bilateral Psych Psychological: normal affect Supplemental Info Echocardiogram from July 2016 showed estimated ejection fraction of 55%, normal diastology for age, RVSP of 37 mmHg, and when compared to previous echo in January 2010 no appreciable changes noted. Cardiovascular stress test from July 2008 was negative for stress-induced myocardial ischemia at a high workload and showed a preserved ejection fraction Heart catheterization from February 2004 resulted in successful PTCA/stenting to mid LAD. Diagnostic heart catheterization from February 2004 showed angiographically normal left main coronary artery, LAD with high-grade mid stenosis, mild to moderate proximal stenosis, and first diagonal with moderately severe diffuse disease, LCx with no high-grade stenosis, RCA with previous angioplasty stent with no significant disease, distal RCA with mild to moderate disease, and preserved ejection fraction. Assessment AND Plan 1. Atherosclerosis of wiyot coronary artery of wiyot heart without angina pectoris I25.10 S/P PTCA of LCX in 1994; PTCA/Stent to LAD in February 2004; Sherita - CINDY Addison His most recent echocardiogram from July 2016 showed an ejection fraction 55%. His stress test from July 2008 was negative. Patient denies any chest pain, jaw pain, neck pain, shortness of breath, or fatigue suggestive of angina at this time. We will continue to monitor this. We will not make any medication regimen changes and will continue risk factor modification. Patient was asked to establish with a local PCP, since he does not have one to evaluate noncardiac health issues such as diabetes given that his hemoglobin A1c in 2014 was 6.9%. 2. Essential hypertension I10 CINDY Perez Patient's blood pressure is well-controlled today in the office. We will continue to monitor this. We will not make any medication regimen changes. 3. Mixed hyperlipidemia E78.2 CINDY Perez Patient's most recent lipid panel from April 2016 show cholesterol: 162, HDL: 57, LDL: 78, and triglycerides: 136. Patient believes that his statin medication is the source of his right shoulder and left bicep pain. He will stop this medication for 2 weeks to evaluate symptoms. At that time he will contact our office with an update. If his muscle discomfort does not resolve he will resume statin medication. If muscle discomfort resolves we can consider non-statin medication such as Zetia 10 mg p.o. daily. He has been intolerant to previous statin medications in the past. He is scheduled to repeat lipid and liver panel in 3 months and hopefully by this time we will have him on a cholesterol- lowering medication that he is tolerating. Orders Orders: Plan Detail Additional Comments - Sampson Jimenez NP-C Discussed the above patient with Dr. Brody, he agrees with the plan of care. Thank you for allowing us to participate in the patients plan of care, if you have any questions please do not hesitate to call. This note was generated using a voice recognition system and there may be incorrect words, spelling or punctuation that were not noted when reviewing the office note prior to saving. 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) Coding Level of Care Code Off vis,est,level 3 Diagnoses Atherosclerosis of wiyot coronary artery of wiyot heart without angina pectoris I25.10 Essential hypertension I10 Hypertension type: essential hypertension Mixed hyperlipidemia E78.2 Hyperlipidemia type: mixed hyperlipidemia Coding Level of Care Code Off vis,est,level 3 Diagnoses Atherosclerosis of wiyot coronary artery of wiyot heart without angina pectoris I25.10 Essential hypertension I10 Hypertension type: essential hypertension Mixed hyperlipidemia E78.2 Hyperlipidemia type: mixed hyperlipidemia 12/25/17 1346 <Electronically signed by Sampson ROBINC> Date Sampson ROBINC 12/25/17 1557<Electronically signed by Xavi Brody MD> Cosigner Signature: Date (if applicable) Xavi Brody MD CC: Raúl Prabhakar MD ALLERGIES ALLERGIES DATE TYPE / CODE NAME / CODE REACTION SEVERITY SOURCE 11/06/2018 Drug simvastatin/F006 Hives [facility] Allergy/416 792331(RXNORM) Hospital 805232(SNOM Repository ED CT) 11/06/2018 Drug atorvastatin/F00 MUSCLE ACHES [facility] Allergy/238 6670850(RXNORM) Hospital 807235(SNOM Repository ED CT) Drug NO KNOWN [facility] Class/18686 ALLERGIES Other [place] 1003(SNOMED Repository CT) NG/51448001 NO KNOWN [facility] 6(SNOMED Ventive System CT) Repository ENCOUNTERS ENCOUNTERS ADMIT/DISCHARGE ACCOUNT NUMBER ADMITTING ENCOUNTER LOCATION SOURCE CLASS 11/06/2018/11/06/19 [id number] Emergency [address] ding:ED Repository 11/05/2018/11/06/19 [id number] Ambulatory [address] ding:SDCRoom Repository : MS305 10/30/2018 [id number] [facility] ding:DC Repository 10/27/2018 [id number] Ambulatory BMSBuilding: [facility] Repository 10/06/2018 [id number] [facility] ding:CLSP Repository 10/06/2018 [id number] Ambulatory BMSBuilding: [facility] Repository 09/23/2018 [id number] [facility] ding:LAB Repository 09/23/2018/09/23/20 [id number] Ambulatory BMSBuilding: [place] 18 [facility] Repository 09/18/2018/09/19/20 [id number] Ambulatory [address] ding:DC Repository 09/17/2018/09/17/20 [id number] Ambulatory BMSBuilding: [place] 18 [facility] Repository 09/09/2018 [id number] [facility] ding:US Repository 08/18/2018 [id number] Ambulatory [facility] Hospital ding:LABSPEC Repository 08/15/2018 [id number] Ambulatory [facility] Hospital ding:MTLAB Repository 08/11/2018 [id number] Ambulatory [facility] Hospital ding:CVS Repository 08/11/2018 [id number] Ambulatory BMSBuilding: [facility] Repository 08/11/2018 [id number] Ambulatory [facility] Hospital ding:CVS Repository 08/04/2018/08/04/20 [id number] Ambulatory BMSBuilding: [place] 18 [facility] Repository 07/27/2018/07/30/20 [id number] ALONDRA ORTEGA Inpatient [place] 18 Encounter Clinic Other [place] Repository 07/27/2018/07/30/20 [id number] ALONDRA ORTEGA F Inpatient [facility] 18 Encounter [facility] MEDICAL Repository CENTERBuildi nARoom: 5217Bed: 02 07/27/2018/07/27/20 [id number] Emergency [place] 18 [facility] ding:ED Repository 07/22/2018/07/22/20 [id number] Ambulatory BMSBuilding: [place] 18 [facility] Repository 07/21/2018 [id number] [facility] ding:LAB Repository 07/17/2018 [id number] Ambulatory BMSBuilding: [facility] Repository 12/25/2017/12/26/19 [id number] Ambulatory BMSBuilding: [place] 18 [facility] Repository PAYERS PAYERS ENCOUNTER GUARANTOR PAYER SUBSCRIBER SOURCE 11/06/2018 JANETT T Primary KIMMIE E [place] [id number] Insurance:ANTHEMPolic BROOKSDOB: [facility] y Number: [id number] [place] [id number] Repository 11654Zis: 330) jayme Date:9343-45-37BM [phone] () [address] [place] [address] 12423ZJ: 11/06/2018 Secondary JANETT T [place] Insurance:MEDICARE BROOK[place]OB: Community PART A [facility] [id number] [facility] Number: Repository [id number] Date:2018-11-06 11/06/2018 Tertiary NOT GIVENUNK [place] Insurance:SELF PAY [facility] Number: Effective Repository Date:2018-11-06 11/05/2018 JANETT T Primary KIMMIE E [place] [id number] Insurance:ANTHEMPolic BROOKSDOB: [facility] y Number: [id number] [place], [place] [id number] Repository 96811Hab: (330) jayme Date:5035-79-06JZ [phone] () [id number] [place] [address] 07871TF: 11/05/2018 Secondary JANETT T [place] Insurance:MEDICARE BROOK[place]OB: Community PART A olic [id number] Hospital Number: Repository [id number] Date:2018-09-30 11/05/2018 Tertiary NOT GIVENUNK [place] Insurance:SELF PAY [facility] Number: Effective Repository Date:2018-09-30 10/30/2018 JANETT T Primary KIMMIE E [place] [id number] Insurance:ANTHEMPolic BROOKSDOB: Community DAVEY y Number: [id number] [place], [place] [id number] Repository 10965Czn: 330 jayme Date:5999-73-44RI [phone] () [id number] [place] [address] 73912OR: 10/30/2018 Secondary JANETT T [place] Insurance:MEDICARE [place]OB: Community PART A [facility] [id number] Hospital Number: Repository [id number] Date:2018-09-08 10/30/2018 Tertiary NOT GIVENUNK [place] Insurance:SELF PAY [facility] Number: Effective Repository Date:2018-09-20 10/27/2018 JANETT T Primary KIMMIE E [place] [id number] Insurance:ANTHEMPolic BROOKSDOB: Community DAVEY y Number: [id number] [place], [place] [id number] Repository 67902Bxs: 330) jayme Date:3604-04-29NH [phone] () [address] [place] [address] 98928CL: 10/27/2018 Secondary JANETT T [place] Insurance:MEDICARE [place]OB: Community PART A [facility] [id number] Hospital Number: Repository [id number] Date:2018-09-08 10/27/2018 Tertiary NOT GIVENUNK [place] Insurance:SELF PAY [facility] Hospital Number: Effective Repository Date:2018-10-27 10/06/2018 JANETT T Primary KIMMIE E [place] [id number] Insurance:ANTHEMPolic [place]OOKSDOB: Community DAVEY y Number: [id number] [place], [place] [id number] Repository 30790Lcn: (330) jayme Date:2979-81-36XV [phone] () [address]WDIAQH, [place] [address]YG: 10/06/2018 Secondary JANETT T [place] Insurance:MEDICARE [place]OB: Community PART A [facility] [id number] Hospital Number: Repository [id number] Date:2018-09-22 10/06/2018 Tertiary NOT GIVENUNK [place] Insurance:SELF PAY [facility] Hospital Number: Effective Repository Date:2018-09-22 10/06/2018 JANETT T Primary KIMMIE E [place] [id number] Insurance:ANTHEMPolic [place]SDOB: Community [place]AVEY y Number: [id number] [place], [place] [id number] Repository 610[address]Orq: (330) jayme Date:1948-93-45DZ [phone] () [address]HKLRC, [place] [address]HD: 10/06/2018 Secondary JANETT T [place] Insurance:MEDICARE [place]OB: Community PART A [facility] [id number] Hospital Number: Repository [id number] Date:2018-09-22 10/06/2018 Tertiary NOT GIVENUNK [place] Insurance:SELF PAY [facility] Hospital Number: Effective Repository Date:2018-10-06 09/23/2018 JANETT T Primary KIMMIE E [place] [id number] Insurance:ANTHEMPolic [place]OB: Community [place]AVEY y Number: [id number] [place], [place] [id number] Repository 94231Vcc: (330) jayme Date:0752-57-98BQ [phone] () [address]OFRKBIX, [place] [address]UY: 09/23/2018 Secondary JANETT T [place] Insurance:MEDICARE [place]OB: Community PART A [facility] [id number] Hospital Number: Repository [id number] Date:2018-09-23 09/23/2018 Tertiary NOT GIVENUNK [place] Insurance:SELF PAY [facility] Hospital Number: Effective Repository Date:2018-09-23 09/23/2018 JANETT T Primary JANETT T [place] [id number] Insurance:MEDICARE [place]OB: Community DAVEY PART A olicy [id number] [place], [place] Number: Repository 58[address]Sig: 330 [id number] [phone] () Date:2018-09-17 09/23/2018 Secondary KIMMIE E [place] Insurance:ANTHEMPolic [place]OOKSDOB: Community y Number: [id number] Hospital [id number] Repository jayme Date:3212-53-43AS [address] [place] [address] 31715JM: 09/23/2018 Tertiary NOT GIVENUNK [place] Insurance:SELF PAY [facility] Hospital Number: Effective Repository Date:2018-09-23 09/18/2018 [facility] Primary KIMMIE E [place] [id number] Insurance:ANTHEMPolic BROOKSDOB: Community [place]AVEY y Number: [id number] [place], [place] [id number] Repository 03[address]Gjd: 330) jayme Date:5298-41-91EA [phone] () [address] [place] [address] 87487XD: 09/18/2018 Secondary JANETT T [place] Insurance:MEDICARE [place]OB: Community PART A [facility] [id number] Hospital Number: Repository [id number] Date:2018-09-08 09/18/2018 Tertiary NOT GIVENUNK [place] Insurance:SELF PAY [facility] Number: Effective Repository Date:2018-09-08 09/17/2018 JANETT T Primary KIMMIE E [place] [id number] Insurance:ANTHEMPolic [place]OOK[place]OB: Community [place]AVEY y Number: [id number] [place], [place] [id number] Repository 97693Trf: (330) jayme Date:8824-02-44KZ [phone] () [address] [place] [address] 25899JS: 09/17/2018 Secondary JANETT T [place] Insurance:MEDICARE [place]OB: Community PART A [facility] [id number] Hospital Number: Repository [id number] Date:2018-08-04 09/17/2018 Tertiary NOT GIVENUNK [place] Insurance:SELF PAY [facility] Hospital Number: Effective Repository Date:2018-09-10 09/09/2018 JANETT T Primary KIMMIE E [place] [id number] Insurance:ANTHEMPolic [place]OOKSDOB: Community [place]Y y Number: [id number] [place], [place] [id number] Repository 312[address]Tej: (330) jayme Date:4903-42-75WV [phone] () [id number] [place] [address] 72173HA: 09/09/2018 Secondary JANETT T [place] Insurance:MEDICARE [place]OB: Community PART A [facility] [id number] Hospital Number: Repository [id number] Date:2018-09-05 09/09/2018 Tertiary NOT GIVENUNK [place] Insurance:SELF PAY [facility] Number: Effective Repository Date:2018-09-05 08/18/2018 JANETT T Primary KIMMIE E [place] [id number] Insurance:ANTHEMPolic [place]OB: Community [place] y Number: [id number] [place], [place] [id number] Repository 234[address]Rtq: (330) jayme Date:2233-80-51UV [phone] () [address] [place] [address] 65958NF: 08/18/2018 Secondary JANETT T [place] Insurance:MEDICARE [place]OB: Community PART A [facility] [id number] Hospital Number: Repository [id number] Date:2018-08-18 08/18/2018 Tertiary NOT GIVENUNK [place] Insurance:SELF PAY [facility] Hospital Number: Effective Repository Date:2018-08-18 08/15/2018 JANETT T Primary KIMMIE E [place] [id number] Insurance:ANTHEMPolic [place]OB: Community [place] y Number: [id number] [place], [place] [id number] Repository 077[address]Aok: (330) jayme Date:1308-03-55ZZ -1928 () [address] [place] [address] 48694XT: 08/15/2018 Secondary JANETT T [place] Insurance:MEDICARE [place]OB: Community PART A BPolicy [id number] Hospital Number: Repository [id number] Date:2018-08-15 08/15/2018 Tertiary NOT GIVENUNK [place] Insurance:SELF PAY [facility] Number: Effective Repository Date:2018-08-15 08/11/2018 JANETT T Primary NOT GIVENUNK [place] [id number] Insurance:SELF [place] Number: Effective Repository 718[address]Oij: (330) Date:2018-08-04109 () 08/11/2018 JANETT T Primary KIMMIE E [place] [id number] Insurance:ANTHEMPolic [place]OOKSDOB: Community [place] y Number: [id number] [place], [place] [id number] Repository 55[address]Icw: (330) jayme Date:0465-57-18OX [phone] () [id number] [place] [address] 85614UE: 08/11/2018 Secondary JANETT T [place] Insurance:MEDICARE [place]OB: Community PART A olicy [id number] Hospital Number: Repository [id number] Date:2018-08-04 08/11/2018 Tertiary NOT GIVENUNK [place] Insurance:SELF PAY [facility] Number: Effective Repository Date:2018-08-11 08/11/2018 JANETT T Primary KIMMIE E [place] [id number] Insurance:ANTHEMPolic [place]OOK[place]OB: Community [place] y Number: [id number] [place], [place] [id number] Repository 639[address]Pcg: (330) jayme Date:3102-93-51IB [phone] () [address] [place] [address] 29484FI: 08/11/2018 Secondary JANETT Tiffanie [place] Insurance:MEDICARE [place]OB: Community PART A olicy [id number] Hospital Number: Repository [id number] Date:2018-08-04 08/11/2018 Tertiary NOT GIVENUNK [place] Insurance:SELF PAY [facility] Hospital Number: Effective Repository Date:2018-08-04 08/04/2018 JANETT T Primary KIMMIE E [place] [id number] Insurance:ANTHEMPolic [place]OOKSDOB: Community [place] y Number: [id number] [place] [id number] Repository 18[address]Ivw: (325) jayme Date:0854-63-30RF [phone] () [address]MUJODKL, [place] [address]SH: 08/04/2018 Secondary JANETT Tiffanie [place] Insurance:MEDICARE [place]OB: Community PART A [facility] [id number] Hospital Number: Repository [id number] Date:2018-07-31 08/04/2018 Tertiary NOT GIVENUNK [place] Insurance:SELF PAY [facility] Number: Effective Repository Date:2018-08-04 07/27/2018 JANETT Moreno Primary KIMMIE [facility] BROOKSDOB: Insurance:BLUE ACCESS BROOKSDOB: Health System PPOPolicy Number: [id number] Repository DAVEY [id number] [place] jayme Date: [address]Zhr: () 07/27/2018 Secondary JANETT T [facility] Insurance:MEDICARE A BROOKSDOB: Health System AND BPolicy Number: [id number] Repository [id number] Date: 07/27/2018 JANETT T Primary KIMMIE E [place] [id number] Insurance:ANTHEMPolic [place]OOKSDOB: Community DAVEY y Number: [id number] [place] [id number] Repository 99[address]Llk: (584) jayme Date:2668-73-50VG [phone] () [id number] [place] [address] 35024RB: 07/27/2018 Secondary JANETT T [place] Insurance:MEDICARE [place]OB: Community PART A olicy [id number] Hospital Number: Repository [id number] Date:2018-07-27 07/27/2018 Tertiary NOT GIVENUNK [place] Insurance:SELF PAY [facility] Hospital Number: Effective Repository Date:2018-07-27 07/22/2018 JANETT T Primary KIMMIE E [place] [id number] Insurance:ANTHEMPolic BROOKSDOB: Community DAVEY y Number: [id number] [place] [id number] Repository 28647Dhx: (295) jayme Date:2023-09-42QP [phone] () [address]AAXBOXO, [place] [address]PH: 07/22/2018 Secondary JANETT T [place] Insurance:MEDICARE [place]OB: Community PART A [facility] [id number] Hospital Number: Repository [id number] Date:2017-12-25 07/22/2018 Tertiary NOT GIVENUNK [place] Insurance:SELF PAY [facility] Hospital Number: Effective Repository Date:2018-07-22 07/21/2018 JANETT T Primary KIMMIE E [place] [id number] Insurance:ANTHEMPolic [place]OOKSDOB: Community [place]AVEY y Number: [id number] [place], [place] [id number] Repository 91278Wat: (198) jayme Date:0557-59-21XW [phone] () [address] [place] [address] 32069BY: 07/21/2018 Secondary JANETT T [place] Insurance:MEDICARE [place]OB: Community PART A [facility] [id number] Hospital Number: Repository [id number] Date:2018-07-21 07/21/2018 Tertiary NOT GIVENUNK [place] Insurance:SELF PAY [facility] Hospital Number: Effective Repository Date:2018-07-21 07/17/2018 JANETT T Primary JANETT T [place] [id number] Insurance:MEDICARE BROOK[place]OB: Community DAVEY PART A [facility] [id number], Number: Repository [place] [address]Oqr: [id number] Date:2018-07-17 () 07/17/2018 Secondary KIMMIE E [place] Insurance:ANTHEMPolic BROOKSDOB: Community y Number: [id number] Hospital [id number] Repository jayme Date:7569-33-13IS [address]IFVNNRN, [place] [address]SX: 07/17/2018 Tertiary NOT GIVENUNK [place] Insurance:SELF PAY [facility] Number: Effective Repository Date:2018-07-17 12/25/2017 JANETT T Primary JANETT T [place] [id number] Insurance:MEDICARE [place]OB: Community DAVEY PART A [facility] [id number], Number: Repository [place] [address]Teg: [id number] Date:2017-10-01 () 12/25/2017 Secondary KIMMIE E [place] Insurance:ANTHEMPolic BROOKSDOB: Community y Number: [id number] Hospital [id number] Repository jayme Date:8061-90-61BX [address]AHOXMQT, [place] [address]RN: 12/25/2017 Tertiary NOT GIVENUNK [place] Insurance:SELF PAY [facility] Number: Effective Repository Date:2017-10-01
== END ==
PROVIDERS: Family Provider Family Medicine; PCP Family Medicine; Referring Provider Internal Medicine Cardiovascular Disease; Visit Provider Internal Medicine Cardiovascular Disease
DX: R55 Syncope and collapse (principal)
CPT/HCPCS: 33282; 99152; J7040

== ENCOUNTER 2018-10-30 13:51 | Outpatient (RCR) | payer BC, MEDICARE, SELFPAY ==
[2018-09-17 12:59] VITALS: BMI 27.3
[2018-10-27 11:01] VITALS: BMI 27.4
== END 2018-11-20 23:59 ==
LOC: DC 13:51
PROVIDERS: Family Provider Family Medicine; PCP Family Medicine; Visit Provider Family Medicine
DX: E11.9 Type 2 diabetes mellitus without complications (principal); Z71.3 Dietary counseling and surveillance
CPT/HCPCS: G0109

== ENCOUNTER 2018-11-05 11:52 | Day surgery (SDC) | payer BC, MEDICARE, SELFPAY ==
[2018-09-17 12:59] VITALS: BMI 27.3
[2018-10-27 11:01] VITALS: BP 152/89; PULSE 77; RESP 16; TEMP 36.6; O2SAT 95; BMI 27.4
--- NOTE | 2018-10-27 11:14 | SDCEKG_ITS ---
Test Reason : Blood Pressure : / mmHG Vent. Rate : 069 BPM Atrial Rate : 069 BPM P-R Int : 148 ms QRS Dur : 098 ms QT Int : 372 ms P-R-T Axes : 035 002 033 degrees QTc Int : 398 ms Normal sinus rhythm Possible Inferior infarct , age undetermined Abnormal ECG Confirmed by MOSES PACE, CAL ([id number]), web content editor DESTINI GAVIRIA ([id number]) on 10/28/2018 9:41:34 AM Referred By: Ross Ochoa Confirmed By:CAL LOPES MD
[2018-11-05] VITALS (8 sets, daily range): BP systolic 101–139; BP diastolic 71–84; PULSE 57–78; RESP 16; TEMP 36.3–37.1; O2SAT 95–100; BMI 27.4
[2018-11-05 12:41] LABS: Bedside Glucose 137 mg/dL (70-110)
--- NOTE | 2018-11-05 14:35 | BLB_PTH ---
PATIENT: JANETT WALLIS LOC: [facility] [place] U#:[id number] AGE/SX: 68/M ROOM: RE11/05/[address]: Dr. Ross Ochoa MD : 1950 BED: DIS: 11/06/2018 SPEC #: [id number] RECD: 11/06/18 07:01 STATUS: MAIRA ANTOINETTE #: [id number] JOSUE: 11/05/18 14:[address]: Ross Ochoa DEPT: SURGICAL PATHOLOGY RECD BY: Joe Carter ENTERED: 11/06/18 12:12 SP TYPE: TURB OTHR DR: Dr. Sampson De La Vega MD Tissues: A - Urinary bladder, NOS B - Prostate, NOS Procedures: Surgery Specimen Level IV Surgery Specimen Level V HEADER OPERATION: Cysto, TUR bladder, Olympus, TUR prostate, Olympus PRE-OP DIAGNOSIS: Bladder tumor, benign prostatic hypertrophy TISSUE SUBMITTED: A - Bladder tumor, B - Prostate tissue MICROSCOPIC DIAGNOSIS A. Urinary bladder, TUR: Papillary urothelial carcinoma. See cancer checklist below. B. Prostate, transurethral resection: Mild chronic inflammation. AM:kristine 11/07/18 COMMENT A. BLADDER CANCER (TUR) SUMMARY: Procedure - TURBT Histologic type - urothelial (transitional cell) carcinoma Associated epithelial lesions - none identified Histologic grade - low grade (WHO) Tumor configuration - papillary Detrusor muscle - not present in biopsy Lymph-Vascular invasion - not identified Microscopic extent of tumor - noninvasive papillary carcinoma Additional pathologic findings - mild chronic inflammation. The above summary is in compliance with College of Stateless Pathology (CAP) Cancer Protocols Checklist and Stateless Joint Committee on Cancer (AJCC), Staging Manual, 8th Ed. MICROSCOPIC DESCRIPTION Slides are reviewed. GROSS DESCRIPTION A - Received in fixative is one container labeled with the patient's name and designated bladder tumor. The specimen consists of a piece of garcía soft tissue measuring 0.5 x 0.4 x 0.2 cm. The specimen is totally submitted in one cassette. B - Received is one container labeled with the patient's name and designated prostate tissue. The specimen consists of multiple irregular fragments of pink-garcía, rubbery, soft tissue that in aggregate weigh 2 gm and measure in aggregate 5 x 3 x 0.3 cm. The entire specimen is submitted in two cassettes. / PAWAN:kristine 11/06/18 TC:0 CPT: 49552, 79253
[2018-11-05] MEDS: Cefazolin 2 GM in 0.9% Normal Saline 100 ML IV (15:59)
--- NOTE | 2018-11-05 16:39 | PCM.OPRPT ---
Report of Operation Date of Procedure: 11/05/18 Pre-Operative Diagnosis: 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, BPH with obstruction Post-Operative Diagnosis: Same Surgery/Procedure Performed:: transurethral resection of a bladder tumor 2 cm in size in the patient's lateral wall, transurethral section of the prostate for BPH and obstruction Description of Surgical Findings:: 68-year-old male known history of BPH with obstruction we are plan to do surgery to alleviate the obstruction and during a cystoscopy was found to have a bladder tumor so at this point we plan to proceed with a resection of this bladder tumor at the same time we will also then proceed with a resection of the prostate for obstruction atonic bladder and poor emptying. The patient understands the risk of anesthesia risk of bleeding infection small risk of stricture formation and incontinence. Procedure note patient was taken back to the operating room after smooth induction of general anesthesia he was placed supine on the table in dorsal lithotomy position the penis and testicles are prepped and draped in usual sterile fashion went into the bladder with a 24 [place] Helen[place] noncontinuous flow resectoscope inspected the entire bladder and the patient's right lateral wall there was a noninvasive appearing bladder tumor that was about 2 cm in size on the lateral wall this was resected down to the lamina propria very minimal muscle was used and resection as it was not invasive and after completely resecting his bladder tumor all the chips were Ellik out and handed off as a specimen separately. I then went to the prostate he had a short length prostate was obstructed with a high bladder neck and lateral tissue the bladder neck was resected the lateral tissue was resected after resecting this tissue did a flow test had a wide open flow and then I obtained hemostasis all the chips were Ellik out the patient's anesthetic is currently being reversed and is taken back to PACU good condition we put a 22 [place] Helen[place] catheter into the bladder continues bladder irrigation for overnight stay. Type of Anesthesia:: General Drains: [address] - Admit VTE Documentation VTE Present on Admission: No VTE Mechan Device Prophylaxis: SCD's
--- NOTE | 2018-11-05 16:45 | DCINST_ITS ---
Discharge Diet: Light diet - advance as tolerated Discharge Activity: Return to Normal Activity Call your doctor if your incision/area has: Continuous Slow Oozing, Sudden Increased Bleeding, Increased Pain/ Swelling, Increased Redness Call your doctor if you observe: Fever of 101 or Higher Suture Line Care: Avoid Pulling/Pushing, Avoid Pinching/Bending Allergies/Adverse Reactions: Allergies atorvastatin [From Lipitor] Allergy (Severe, Verified 10/27/18 10:47) Muscle aches simvastatin [From Zocor] Adverse Reaction (Severe, Verified 10/27/18 10:47) Hives Medications to take at Discharge Aspirin [Aspirin, Baby] 81 mg PO DAILY@0800 03/04/14 Nitroglycerin [Nitrostat] 0.4 mg SUBLINGUAL Q5M PRN 03/04/14 clopidogrel 75 mg tablet 75 mg PO DAILY #90 tab 01/09/18 rosuvastatin 5 mg tablet 5 mg PO QHS #90 tab 04/08/18 metformin 500 mg tablet 500 mg PO BID 09/17/18 metoprolol succinate ER 25 mg tablet,extended release 24 hr 25 mg PO DAILY 90 Days #90 tab 09/17/18 tamsulosin 0.4 mg capsule 0.4 mg PO BID 30 Days #30 cap 09/17/18 Amoxicillin 875 mg PO BID 10/27/18 Ciprofloxacin [Cipro] 500 mg PO BID #14 tablet 11/05/18 The following prescriptions were given: Ciprofloxacin [Cipro] 500 mg PO BID #14 tablet Primary Care Physician: Sampson De aL Vega MD [Primary Care Provider] - Test Results: Test results from this visit will be discussed in further detail at your follow- up appointment, if applicable. Please Follow Up With: Ross Ochoa MD When: in 2 weeks, please call to make an appointment. Proposed Discharge Date: 11/06/18
--- NOTE | 2018-11-05 17:08 | SUR.PHASEI ---
CATHETER NOT ACTIVELY DRAINING UPON ARRIVAL TO PACU, CBI TURNED OFF AND CATHETER IRRIGATED WITH BULB SYRINGE AND .9% NS. CATHETER DRAINING NOW
[2018-11-05] MEDS: 0.9% Normal Saline 1,000 ML 75 ML IV (19:47)
[2018-11-05] MEDS: Acetaminophen 325 MG Tablet PO (19:57)
[2018-11-05] MEDS: Docusate Sodium 100 MG Capsule PO (22:14)
[2018-11-05] MEDS: Tamsulosin HCl 0.4 MG Capsule PO (22:14)
[2018-11-05] MEDS: Rosuvastatin Calcium 5 MG Tablet PO (22:14)
[2018-11-06 03:15] VITALS: BP 137/84; PULSE 75; RESP 16; TEMP 36.4; O2SAT 95
[2018-11-06] MEDS: Acetaminophen 325 MG Tablet PO (03:24)
[2018-11-06 06:41] LABS: Bedside Glucose 128 mg/dL (70-110)
--- NOTE | 2018-11-06 07:08 | PCM.PN.BLA ---
Progress Note urine is clear d/c ant[address] home after voids.
[2018-11-06 09:22] VITALS: BP 132/79; PULSE 75; RESP 20; TEMP 36.5; O2SAT 98
[2018-11-06 09:29] VITALS: PULSE 75
[2018-11-06] MEDS: Metoprolol(XL)Succ 25 MG Tablet PO (09:29)
[2018-11-06] MEDS: Tamsulosin HCl 0.4 MG Capsule PO (09:29)
[2018-11-06] MEDS: Pantoprazole Sodium 40 MG Tablet PO (09:29)
[2018-11-06] MEDS: Docusate Sodium 100 MG Capsule PO (09:29)
--- OUTSIDE RECORDS SUMMARY | 2019-01-10 07:57 | XMS RPT_ITS ---
:1950 Author Organization OHIP Support Name Relationship Address Phone RADHA VUONGNDA Unavailable [address] + [place] [address] R Unavailable Unavailable Unavailable VUONG, KIMMIE Unavailable [address] + [place] [address] R Unavailable Unavailable Unavailable VUONG, KIMMIE Unavailable [address] + [place] [address] R Unavailable Unavailable Unavailable VUONG, KIMMIE Unavailable [address] + [place] [address] R Unavailable Unavailable Unavailable VUONG, KIMMIE Unavailable [address] + [place] [address] R Unavailable Unavailable Unavailable VUONG, KIMMIE Unavailable [address] + [place] [address] R Unavailable Unavailable Unavailable VUONG, KIMMIE Unavailable [address] + [place] [address] R Unavailable Unavailable Unavailable VUONG, KIMMIE Unavailable [address] + [place] [address] R Unavailable Unavailable Unavailable VUONG, KIMMIE Unavailable [address] + [place] [address] R Unavailable Unavailable Unavailable VUONG, KIMMIE Unavailable [address] + [place] [address] R Unavailable Unavailable Unavailable VUONG, KIMMIE Unavailable [address] + [place] [address] R Unavailable Unavailable Unavailable VUONG, KIMMIE Unavailable [address] + [place] [address] R Unavailable Unavailable Unavailable VUONG, KIMMIE Unavailable [address] + [place] [address] R Unavailable Unavailable Unavailable VUONG, KIMMIE Unavailable [address] + [place] [address] R Unavailable Unavailable Unavailable VUONG, KIMMIE Unavailable [address] + [place] [address] R Unavailable Unavailable Unavailable VUONG, KIMMIE Unavailable [address] + [place] [address] R Unavailable Unavailable Unavailable VUONG, KIMMIE Unavailable [address] + [place] [address] R Unavailable Unavailable Unavailable VUONG, KIMMIE Unavailable [address] + [place] [address] R Unavailable Unavailable Unavailable VUONG, KIMMIE Unavailable [address] + [place] [address] R Unavailable Unavailable Unavailable VUONG, KIMMIE Unavailable [address] + [place] [address] R Unavailable Unavailable Unavailable VUONG, KIMMIE Unavailable [address] + [place] [address] R Unavailable Unavailable Unavailable VUONG, KIMMIE Unavailable [address] + [place] [address] R Unavailable Unavailable Unavailable Care Team Providers Name Role Phone IMCA Primary Care Unavailable ALONDRA ORTEGA F Admitting Unavailable ALONDRA ORTEGA F Attending Unavailable MICHELLE HERRERAID F Consulting Unavailable JORDAN ALI Admitting Unavailable JORDAN ALI Attending Unavailable YELENAA FARID MURALI Consulting Unavailable Sampson Jimenez Attending Unavailable Raúl Prabhakar Referring Unavailable NoKenyatta trimble Attending Unavailable Mary Grace, [place] Attending Unavailable Mary Grace, [place] Referring Unavailable Primay Care Physicia, No Primary Care Unavailable Mary Grace, Xavi Attending Unavailable Primay Care Physicia, No Referring Unavailable Mary Grace, Xavi Attending Unavailable Mary Grace, [place] Referring Unavailable Sampson De La Vega Primary Care Unavailable Mary Grace, Xavi Attending Unavailable Mary Grace, Xavi Referring Unavailable Ross Ochoa Attending Unavailable Ross Ochoa Referring Unavailable Schinner, Sampson E Primary Care Unavailable Mary Grace, [place] Attending Unavailable Mary Grace, Xavi Referring Unavailable Mary Grace, [place] Attending Unavailable Js Barrios Referring Unavailable Schinner, Sampson E Primary Care Unavailable Ranjan Guerrier Attending Unavailable Primay Care Physicia, No Primary Care Unavailable Zaki Smith Attending Unavailable Juliet Enrique Attending Unavailable Primay Care Physicia, No Referring Unavailable MARIAA DUGAN Attending Unavailable EnriqueJuliet maxwell Referring Unavailable Schinner, Sampson E Primary Care Unavailable EnriqueJuliet maxwell Attending Unavailable EnriqueJuliet maxwell Referring Unavailable Schinner, Sampson E Primary Care [...] Care Physicia, No Referring Unavailable Mary Grace, Xavi Attending Unavailable Mary Grace, Xavi Referring Unavailable Schinner, Sampson E Primary Care Unavailable PROBLEMS PROBLEMS DATE TYPE CONDITION / CODE ATTENDING STATUS SOURCE Unknown Z71.3 - Dietary Schinner, Active [facility] counseling and Sampson E Community surveillance / Hospital Z71.3(ICD-10) Repository Unknown R94.31 - Abnormal Mary Grace, Xavi Active [facility] electrocardiogram [ECG] Community [EKG] / R94.31(ICD-10) Hospital Repository Unknown R42 - Dizziness and Antwan, Active [place] giddiness / R42(ICD-10) Pending Sale To [facility] Repository Unknown R55 - Syncope and Klaus Active [place] collapse / R55(ICD-10) [facility] Repository Unknown I48.91 - Unspecified Klaus Active [facility] atrial fibrillation / [facility] I48.91(ICD-10) Hospital Repository Unknown E78.00 - Pure Klaus, Active [facility] hypercholesterolemia, Juliet Community unspecified / Hospital E78.00(ICD-10) Repository Unknown E78.0 - Pure Klaus, Active [facility] hypercholesterolemia / Juliet [facility] E78.0(ICD-10) Hospital Repository Active Contusion of lung, MALLAT, ALI Active [facility] unilateral, initial Clinic Other encounter / [facility] S27.321A(ICD-10) Repository Active Dizziness and giddiness / MALLAT, ALI Active [facility] R42(ICD-10) Clinic Other [facility] Repository Active Unspecified fall, initial MALLAT, ALI Active [facility] encounter / Clinic Other W19.XXXA(ICD-10) [facility] Repository Active Multiple fractures of MALLAT, ALI Active [facility] ribs, left side, initial Clinic Other encounter for closed [facility] fracture / Repository S22.42XA(ICD-10) Active Hemoptysis / MALLAT, ALI Active [facility] R04.2(ICD-10) Clinic Other [facility] Repository Active Abnormal levels of other MALLAT, ALI Active [facility] serum enzymes / Clinic Other R74.8(ICD-10) [facility] Repository Admitting Unknown / UNK(Unknown) MALLAT, ALI F Active [facility] Repository Unknown S22.42XA - Multiple Zaki Smith Active [place] fractures of ribs, left Community side, initial encounter Hospital for closed fracture / Repository S22.42XA(ICD-10) Unknown I10 - Essential (primary) Mary Grace, Xavi Active [facility] hypertension / Community I10(ICD-10) Hospital Repository Unknown I25.10 - Atherosclerotic Mary Grace, [place] Active [facility] heart disease of [place] Community coronary artery without Hospital angina pectoris / Repository I25.10(ICD-10) Unknown E78.5 - Hyperlipidemia, Mary Grace, Xavi Active [facility] unspecified / Community E78.5(ICD-10) Hospital Repository Unknown E78.2 - Mixed Mary Grace, [place] Active [facility] hyperlipidemia / Community E78.2(ICD-10) Hospital Repository PROCEDURES PROCEDURES No Procedure Records FoundRESULTS RESULTS EMERGENCY DEPARTMENT Observed: 11/07/2018 Status: F Source: [place] SUMMARY 12:13 AM [facility] REPOSITORY [facility] Medical Records Department [address] [place] [address] Emergency Department Summary 11/06/182032 MR#: [id number] Acct: [id number] Name: JANETT VUONG Rep #: [id number] : 1950 68 From: Ranjan Guerrier MD [...] bladder surgery. This note was generated with [employer]ard[employer] dictation software. It may contain incorrect words, [...] your Primary Care Provider. Call [facility] ([phone]) or report to the closest Emergency Room. Call 911 if necessary. 11/07/18 0013 <Electronically signed by Ranjan Guerrier MD> Date Ranjan Guerrier MD Cosigner Signature (If Indicated): Date CC: Sampson De La Vega MD BEDSIDE GLUCOSE Collected: 11/06/2018 Status: F Source: [place] 6:32 AM [facility] REPOSITORY TYPE CODE TESTS RESULT OUT OF REFERENCE UNITS RANGE LAB L501.080 70-110 mg/dL High BEDSIDE GLU 128 Result Comment: MANAGEMENT OF PATIENT CARE PER NURSING PROTOCOL Performed By: #### L501.080 #### [facility] Point of Care [address] [place] [address] DISCHARGE INSTRUCTION Observed: 11/05/2018 Status: F Source: [place] 4:45 PM [facility] REPOSITORY [facility] Department [address] [place] [address] Instructions for Home/Discharge Instructions 11/05/18 1644 MR#: [id number] Acct: [id number] Name: JANETT VUONG Rep #: [id number] : 1950 68 From: Ross Ochoa MD PCP: Sampson De La Vega MD Status: REG [facility] [place] [place] Discharge Diet: Light diet - advance as [...] an appointment. Proposed Discharge Date: 11/06/18 11/05/18 4514 <Electronically signed by Ross Ochoa MD> Date Ross Ochoa MD CC: Sampson De La Vega MD Signed OPERATIVE REPORT Observed: 11/05/2018 Status: F Source: [place] 4:42 PM [facility] REPOSITORY [facility] Department [address] [place] [address] Operative Report 11/05/18 1639 MR#: [id number] Acct: [id number] Name: JANETT VUONG Rep #: [id number] : 1950 68 From: Ross Ochoa MD PCP: Sampson De La Vega MD Status: REG [facility] [place] [place] Y Location: [place] [address] Report of Operation Date of Procedure: 11/05/18 [...] went into the bladder with a 24 Jordanian noncontinuous flow resectoscope inspected the entire bladder [...] PACU good condition we put a 22 Jordanian catheter into the bladder continues bladder irrigation [...] 11/05/2018 Status: F Source: [place] 2:35 PM [facility] REPOSITORY Patient: JANETT VUONG : 1950 (68/M) Acct Num: [id number] Phys: Don PACE,Ross Acuña Unit Num: [id number] Loc: [facility] [place] [place] Specimen: [id number] Received: 11/06/18700 Spec Type: TURB [...] summary is in compliance with [employer] [place] (CAP) Cancer Protocols Checklist and [place] Joint Committee on Cancer (AJCC), Staging Manual, [...] two cassettes. / SJ:kristine 11/06/18 TC:0 CPT: 63156, 32795 HEADER OPERATION: Cysto, TUR bladder, Olympus, TUR [...] on file> Performed By: #### PBLB #### [facility] [address] [place], [address] BEDSIDE GLUCOSE Collected: 11/05/2018 Status: F Source: [place] 12:28 PM [facility] REPOSITORY TYPE CODE TESTS RESULT OUT OF REFERENCE UNITS RANGE LAB L501.080 70-110 mg/dL High BEDSIDE GLU 137 Result Comment: MANAGEMENT OF PATIENT CARE PER NURSING PROTOCOL Performed By: #### L501.080 #### [facility] Point of Care [address] [place] [address] 12 LEAD ELECTROCARDIOGRAM Observed: 10/28/2018 Status: F Source: [place] 9:42 AM [facility] REPOSITORY [facility] Cardiovascular Services [address] [place] [address] EKG - [facility] [place] [place] 10/27/18 1109 MR#: [id number] Acct: [id number] Name: JANETT VUONG Rep #: [id number] : 1950 68 From: Xavi Brody MD Attending Dr: Ross Ochoa MD Status: PRE [facility] [place] [place] Ordering Dr: Js Barrios MD Date: 10/27/18 Location: [facility] [place] [place] Sex: M C Admitted: Test Reason : [...] ECG Confirmed by XAVI BRODY MD ([id number]), electronic news gathering editor DESTINI GAVIRIA ([id number]) on 10/28/2018 9:41:34 AM Referred By: Ross Ochoa Confirmed By:XAVI BRODY MD 10/28/18 0941 Date Xavi Brody MD CC: Js Barrios MD; Sampson De La Vega MD; Ross Ochoa MD Date Dictated: 10/27/181108 Date Transcribed: 10/27/181108 Pumper Gager Apprentice: Signed PACEMAKER CHECK Observed: 09/25/2018 Status: F Source: [place] 9:22 AM [facility] REPOSITORY [facility] [place] [address] Pacemaker Check Date of Service: 09/23/18 1537 MR#: [id number] Acct: [id number] Name: JANETT VUONG Rep #: [id number] : 1950 From: Nalini Moncada Age/Sex: 68/M Location: [facility] Status: Signed Comments Summary Comments: Written and [...] Date (if applicable) Xavi Brody MD CC: CBC-COMPLETE BLOOD CNT Collected: 09/23/2018 Status: F Source: [place] NO DIFF 10:08 AM [facility] REPOSITORY TYPE CODE TESTS RESULT OUT OF [...] MPV 9.7 Performed By: #### L100.0500 #### [facility] [address] [place], [address] BASIC METABOLIC Collected: 09/23/2018 Status: F Source: [place] PROFILE (BMP) 10:08 AM [facility] REPOSITORY TYPE CODE TESTS RESULT OUT OF [...] GAP 5 Performed By: #### L500.2500 #### [facility] [address] [place], [address] CARDIOLOGY VISIT Observed: 09/18/2018 Status: F Source: [place] REPORT 7:31 AM [facility] REPOSITORY [facility] 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 3. Atherosclerosis of [place] coronary artery of [place] heart without angina pectoris I25.10 S/P PTCA [...] syncope R55 Essential hypertension I10 Atherosclerosis of [place] coronary artery of [place] heart without angina pectoris I25.10 Coding Level of Care Code Off vis,est,level 4 Diagnoses Near syncope R55 Essential hypertension I10 Atherosclerosis of [place] coronary artery of [place] heart without angina pectoris I25.10 09/17/18 1409 <Electronically signed by Juliet M Enrique PA> Date Juliet MAHAJAN 09/18/18 0731<Electronically signed by Xavi Brody MD> Cosigner Signature: Date (if applicable) Xavi Brody MD CC: Sampson De La Vega MD KIDNEY AND BLADDER Observed: 09/09/2018 Status: F Source: [place] 9:12 AM [facility] REPOSITORY [facility] Imaging Services [address] [place] [address] Kidney and Bladder MR#: [id number] Acct: [id number] Name: JANETT VUONG Rep #: [id number] : 1950 [facility] From: Steve Guevara MD PCP: Sampson De La Vega MD Status: REG CLI Study: Kidney and Bladder Date of Exam: 09/09/18 Exam# [id number] Ordering Dr: Sampson De La Vega MD [...] , CC: Sampson De La Vega MD Pumper Gager Apprentice: Signed HEMOGLOBIN A1C Collected: 08/18/2018 Status: F Source: [place] 1:49 PM [facility] REPOSITORY Order Comment: PLEASE ADD A1C TO BLOOD WORK DONE 08/15/18 PER TYPE CODE TESTS RESULT OUT OF RANGE REFERENCE UNITS LAB L501.9985 4.2-6.3 % High HGB A1C 6.9 Performed By: #### L501.9985 #### [facility] [address] [place], [address] URINALYSIS, COMPLETE Collected: 08/18/2018 Status: F Source: [place] 12:00 AM [facility] REPOSITORY Order Comment: How was Urine Obtained? [...] URINE SEEN Performed By: #### L400.0001 #### [facility] [address] [place], [place], [address] CBC W/DIFF, AUTOMATED Collected: 08/15/2018 Status: F Source: [place] 1:49 PM [facility] REPOSITORY TYPE CODE TESTS RESULT OUT OF [...] Lymph 1.66 Performed By: #### L100.0100 #### [facility] [address] [place], [address] COMPREHENSIVE METABOLIC Collected: 08/15/2018 Status: F Source: [facility] 1:49 PM [facility] REPOSITORY TYPE CODE TESTS RESULT OUT OF [...] By: #### L500.4050, L500.4100, L501.9520, L501.9910 #### [facility] [address] [place], [place], [address] LIPID PROFILE Collected: 08/15/2018 Status: F Source: [place] 1:49 PM [facility] REPOSITORY TYPE CODE TESTS RESULT OUT OF [...] By: #### L500.4050, L500.4100, L501.9520, L501.9910 #### [facility] [address] [place], [address] THYROID STIM HORMONE Collected: 08/15/2018 Status: F Source: [place] (TSH) 1:49 PM [facility] REPOSITORY TYPE CODE TESTS RESULT OUT OF RANGE REFERENCE UNITS LAB L501.9520 0.358-3.74 uIU/mL Normal TSH 1.29 Performed By: #### L500.4050, L500.4100, L501.9520, L501.9910 #### [facility] [address] [facility] [place], [address] PSA,TOTAL - ANNUAL Collected: 08/15/2018 Status: F Source: [place] SCREEN 1:49 PM [facility] REPOSITORY TYPE CODE TESTS RESULT OUT OF RANGE REFERENCE UNITS LAB L501.9910 0.00-4.00 ng/mL Normal PSA,TOT 0.53 SCREEN Result Comment: This test was performed using the TPSA assay method for the Nap[employer] chemistry system. Values obtained with different assay methods cannot be used interchangably. When changing PSA assays in the course of monitoring a patient, additional sequential testing should be carried out to confirm baseline values. Performed By: #### L500.4050, L500.4100, L501.9520, L501.9910 #### [facility] [address] [place], [place], [address] VITAMIN D,25 HYDROXY Collected: 08/15/2018 Status: F Source: [place] 1:49 PM [facility] REPOSITORY TYPE CODE TESTS RESULT OUT OF RANGE REFERENCE UNITS LAB L506.1000 29.95-100.01 ng/mL Normal Vitamin D 31.6 25-OH Result Comment: Vitamin D 25(OH) Status Range Deficiency <20 ng/mL (50nmol/L) Insuffciency 20 - 30 ng/mL (50 - 75 nmol/L) Sufficiency 30 - 100 ng/mL (75 - 250 nmol/L) Toxicity >100 ng/mL (>250 nmol/L) Performed By: #### L506.1000 #### [facility] [address] [place], [address] CAROTID DUPLEX Observed: 08/13/2018 Status: F Source: [place] ULTRASOUND 8:28 AM [facility] REPOSITORY [facility] [address] [place] [address] Carotid Duplex Ultrasound 08/11/18 0936 MR#: [id number] Acct: [id number] Name: JANETT VUONG Rep #: [id number] : 1950 68 From: Kenny Watkins MD [...] the left vertebral artery. Procedure Carotid Duplex 55012. Exam performed in department. Interpretation Summary Mild (<50%) stenosis right extracranial internal carotid. Moderate (50-69%) stenosis left extracranial internal carotid. Flow within the vertebral arteries is antegrade bilaterally. Ordering Physician: Juliet Enrique Referring Physician: Sampson De La Vega Performed By: Chrissy Minaya RVT and Student 08/13/18826 Date Kenny Watkins MD CC: Sampson De La Vega MD; Juliet Enrique; OUT OF TOWN DOCTOR Date Dictated: 08/11/1836 Date Transcribed: 08/13/18826 Pumper Gager Apprentice: Signed CARDIOLOGY VISIT Observed: 08/05/2018 Status: F Source: [place] REPORT 11:30 AM [facility] REPOSITORY [facility] [address] [facility] [place] [address] OFFICE VISIT Date of Service: 08/04/18 MR#: [id number] Acct: [id number] Name: JANETT VUONG Rep #: [id number] : 1950 Provider: Juliet Enrique Age/Sex: 68/M Location: [facility] Status: Signed HPI HPI Chief Complaint: Follow [...] related to dizziness. He was transferred to [facility] where he was noted to have [...] Pressure Location Lt brachial Intake Visit Reasons: [facility] ER 10-7, trans to [facility] [place] 10- Allergies atorvastatin [From Lipitor] Allergy (Severe, [...] Medical History Essential hypertension (Chronic) Atherosclerosis of [place] coronary artery of [place] heart without angina pectoris (Chronic) Hyperlipidemia (Chronic) [...] 2009. Assessment AND Plan 1. Atherosclerosis of [place] coronary artery of [place] heart without angina pectoris I25.10 S/P PTCA [...] Code Off vis,est,level 4 Diagnoses Atherosclerosis of [place] coronary artery of [place] heart without angina pectoris I25.10 Pure hypercholesterolemia E78.00; E78.0 Hyperlipidemia type: pure hypercholesterolemia Near syncope R55 Dizziness R42 Coding Level of Care Code Off vis,est,level 4 Diagnoses Atherosclerosis of [place] coronary artery of [place] heart without angina pectoris I25.10 Pure hypercholesterolemia E78.00; E78.0 Hyperlipidemia type: pure hypercholesterolemia Near syncope R55 Dizziness R42 08/04/18 1131 <Electronically signed by Juliet MAHAJAN> Date Juliet MAHAJAN 08/05/18 1130<Electronically signed by Xavi Brody MD> Cosigner Signature: Date (if applicable) Xavi Brody MD CC: CNDS Observed: 07/30/2018 Status: COMPLETED Source: [place] 12:21 PM [facility] REPOSITORY O ID: [id number] Author: Arthur Menchaca Service: Trauma Author Type: [...] AND MEDICAL TEAM: My Main Hospital Doctor: Alondra Ortega Primary Care Provider: Roland Farah MD My Medical Team Members: Treatment Team: Attending Provider: Alondra [place]tega Consulting: Josiah Herrera Consulting: Romeo Fajardo MY CONDITION AT DISCHARGE: Stable REASON I WAS IN THE HOSPITAL: Treatment of injuries sustained during a fall SUMMARY OF WHAT HAPPENED WHILE I WAS IN THE HOSPITAL: Patient was seen in the ED as a transfer from [facility] as a Level III trauma consult on [...] Recommended follow-ups include with patient's PCP and pulling machine operator given syncopal episode. OTHER PROBLEMS/DIAGNOSIS: Active Problems: [...] you become constipated, you may use any exfu-gaf-lndjztg treatment such as Milk of Magnesia, Sennakot, Prune Juice, Suppositories, etc. in addition to the stool softener/fiber supplement No alcohol or driving while on pain medication Use acetaminophen (Tylenol) as recommended on the bottle Use the dispensed medication (see prescription) You should use an ncqy-zly-fxlzfoo stool softener (Docusate sodium) and/or a fiber [...] to call for appointment?: Yes Roland Farah [phone] [facility] [address] [facility] [address] Follow-Up Appointment Please contact your pulling machine operator and schedule an appointment to discuss your recent hospitalization and dizziness. With: Caridologist When: In 1 week Patient/Parents to call for appointment?: Yes Additional Provider to Provider Information: No notes on file Transitions of Care Critical Issues: Discharge home with self care LABS AND PROCEDURES PENDING AT DISCHARGE: No pending results. FOLLOW-UP APPOINTMENTS ALREADY SCHEDULED WITH A [facility] PROVIDER: No future appointments. ALLERGIES No Known [...] CASE MANAGEM Observed: 07/30/2018 Status: COMPLETED Source: [place] 9:20 AM CL[facility]IC OTHER CAMPUS REPOSITORY O ID: [id number] Author: Spenser Sandoval ([place]) Service: Care Management Author Type: Hide Puller Type: Care Mgt Progress Note Filed: 07/30/2018 [...] 15 MIn SIGNATURE: MARÍA Kovacs PATIENT NAME: Jantet Vuong DATE: July 30, 2018 TIME: 9:21 AM PAGER/CONTACT #: [phone] CHEST 2 VIEWS Observed: 07/30/2018 Status: F Source: [facility] 8:18 AM HEALTH SYSTEM REPOSITORY Performed at [facility] APPROVED BY: Emery Reddy MD EXAMINATION: CHEST RADIOGRAPH (2 VIEW FRONTAL & LATERAL) CLINICAL HISTORY: Status post fall. Rib fractures. Hemoptysis. MQ: XC2_5 Comparison: 08/07/2018 RESULT: Lines, tubes, and devices: Overlying deck worker leads. Lungs and pleura: Small right-sided pleural effusion. Stable. Probable atelectasis at the left lung base. Stable. No pneumothorax. Cardiomediastinal silhouette: Normal cardiomediastinal silhouette. Other: Left-sided rib fractures involving the left eighth and ninth ribs at least. IMPRESSION: Stable right-sided pleural effusion. Stable diminished aeration left lung base most likely atelectasis. Left-sided rib fractures. PROGRESS Observed: 07/30/2018 Status: COMPLETED Source: [place] 8:01 AM CLINIC OTHER CAMPUS REPOSITORY O ID: [id number] Author: Vadim Richter ([place]) Service: Trauma Author Type: Physician Armored Transport Service Manager Type: Progress Notes Filed: 07/30/2018 8:07 AM [...] 0659 07/30/18 07 - 07/31/18 0659 Shift 1366-3231 2829-5295 2694-3207 24 Hour Total 6212-5964 8365-5977 7380-5983 24 Hour Total I N T A K E PO 360 474 177 3105 PO 360 588 452 4966 Shift Total 360 401 458 7028 O U T P U T Urine [...] questions or concerns Mon-Fri 6a-5p please page [phone]. After 5pm and on Weekends and Holidays, please page [phone] if in ICU or [phone] if on RNF. SIGNATURE: Vadim Richter PA-C PATIENT NAME: Janett Vuong DATE: July 30, 2018 TIME: 8:06 AM Pager: [phone] MDRD GFR Collected: 07/30/2018 Status: F Source: [facility] 4:16 AM HEALTH SYSTEM REPOSITORY TYPE CODE TESTS RESULT OUT OF RANGE REFERENCE UNITS LAB GFRFN(LOINC >60mL/min/1.73m ) 2 eGFR >60 Result Comment: If the patient is , multiply the result by 1.210. Performed By: #### GFR #### [facility] [address] [place] [address] IONIZED CALCIUM Collected: 07/30/2018 Status: F Source: [facility] 4:16 AM HEALTH SYSTEM REPOSITORY TYPE CODE TESTS RESULT OUT OF REFERENCE UNITS RANGE LAB CAION(LOINC 4.43-4.93 mg/dL ) Ionized 4.57 Calcium LAB PHCAI(LOINC 7.320-7.420 ) pH 7.375 LAB CAPH(LOINC) 4.36-4.73 mg/dL Ionized 4.51 Ca,PH7.4 Performed By: #### IONCA #### [facility] [address] [place], [place] [address] HEMOGRAM/DIFF Collected: 07/30/2018 Status: F Source: [facility] 4:16 AM HEALTH SYSTEM REPOSITORY TYPE [...] 0.99 LAB MONON(LOIN 0.30-0.82 thou/cmm C) Abs. Pike 0.73 LAB EOSN(LOINC 0.04-0.54 thou/cmm ) Abs. Eosin 0.25 LAB BASON(LOIN 0.01-0.08 thou/cmm C) Abs. Baso 0.02 Performed By: #### CBCD1 #### [facility] [address] [place] [address] BASIC PANEL Collected: 07/30/2018 Status: F Source: [facility] 4:16 AM HEALTH SYSTEM REPOSITORY TYPE [...] Gap 9 Performed By: #### P8 #### [place] [address] THERAPY NT Observed: 07/29/2018 Status: COMPLETED Source: [place] 4:50 PM CLINIC OTHER CAMPUS REPOSITORY HNO ID: [id number] Author: Jason (PtJason Cervantes Service: Physical Therapy Author Type: Physical Therapist Type: Therapy (PT/OT/Speech/Resp) Filed: 07/29/2018 5:29 PM Note Text: Physical Therapy Evaluation SERVICE DATE: 07/29/2018 SERVICE TIME: 1607 to 1625 ROOM: [id number] Recommended Discharge Disposition: Home Anticipated Discharge Needs: [...] Diagnosis: Reduced mobility-other Interventions Provided: Evaluation;Therapeutic Activity (19918) $ Evaluation-Low (41586) Billed Units: 1 unit Therapeutic Activity (63421) Treatment Minutes: 5 0 units Skilled Intervention(s): Education with disease process, modifying transfers/mobility to decrease risk of sudden near- and syncope, consulting pulling machine operator for possible contributions to recent syncopal and [...] Current Hospital Course: Chart reviewed; Transfer from [place]. GCS at Scene was 15. 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 OBJECTIVE: Range of Motion: ROM Limitation Comments [...] THERAPY NT Observed: 07/29/2018 Status: COMPLETED Source: [place] 3:11 PM CLINIC OTHER CAMPUS REPOSITORY HNO ID: [id number] Author: Jie Dailey/Roland Sharma Service: Occupational Therapy Author Type: Occupational Therapist Type: Therapy (PT/OT/Speech/Resp) Filed: 07/29/2018 4:45 PM Note Text: Occupational Therapy Evaluation SERVICE DATE: 07/29/2018 SERVICE TIME: 2630 to 3075 ROOM: [id number] Recommended Discharge Disposition: Home Recommended Discharge Disposition [...] comorbidities present to affect patient's occupational performance: ME Patient Disposition at Start of Session: Supine [...] Therapy Diagnosis: Reduced mobility-other Interventions Provided: Evaluation;Self Retirement Management (96431) $ Evaluation-Low (84303) Billed Units: 1 unit Self Retirement Management (38996) Treatment Minutes: 5 0 units Skilled Intervention(s): [...] Progressive mobility protocol Relevant Past Medical History: ME, HTN Patient Report: Patient reports he is doing well, just has pain. Patient ready to return home with no concerns. 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 OBJECTIVE: Responsiveness: Alert;Awake Follows Commands: 2-step Commands [...] PM CLINIC OTHER CAMPUS REPOSITORY HNO ID: [id number] Author: Darcy (Rn) MARCE Dickey Service: Care Management Author Type: Registered Nurse Type: Care Mgt Initial Assessment Filed: 07/29/2018 3:06 PM Note Text: CARE MANAGEMENT: ASSESSMENT AND DISCHARGE PLAN SERVICE DATE: 07/29/2018 SERVICE TIME: 3:04 PM PRIMARY CARE PHYSICIAN: Roland Farah MD ADMISSION STATUS: Inpatient Needs Prior to Discharge: To Be Determined MEDICAL: Patient/Traveling Electrician Stated Goals: To return home to life as it was Health Insurance: [employer] PPO Confirmed Medicare Health Issues Impacting Discharge Plan: None Last Admission Date: none Is this Within the Past 30 days? No Advance Directive: Current Advance Directive: None Marketing Communications Leader Attempted to Assist with AD Completion: Yes [...] None Has the Patient Been in a Group Home Facility in the Past 30 days? [...] 0 I feel financially burdened by my [id number] expenses for my prescription medication: Disagree completely [...] 29, 2018 TIME: 3:04 PM PAGER/CONTACT #: [phone] CONSULT PROG Observed: 07/29/2018 Status: COMPLETED Source: [place] 2:22 PM CLINIC OTHER CAMPUS REPOSITORY HNO ID: [id number] Author: Chrystal Gonzalez Service: Hospital Medicine Author Type: Physician Type: Consult Progress Note Filed: 07/29/2018 2:32 PM Note Text: DEPARTMENT OF HOSPITAL MEDICINE PROGRESS NOTE SERVICE DATE: 07/29/2018 SERVICE TIME: 2:22 PM Hospital Medicine/Primary Attending: Chrystal Gonzalez MD NIGHT AND WEEKEND COVERAGE: After 7pm, please call cross cover pager #[phone] Subjective CC/Follow up for Medical management INTERVAL HPI: no acute events overnight Pt reported L side chest pain with cough and deep breathing, no other complaints Pt endorsed having episodes of dizziness before and he refused event monitor due to cost. He follows with pulling machine operator and he already talked to him about [...] and presyncope - pt follows with his pulling machine operator, refused event monitor previously due to cost [...] #: PROGRESS Observed: 07/29/2018 Status: COMPLETED Source: [place] 1:53 PM CLINIC OTHER CAMPUS REPOSITORY HNO ID: [id number] Author: Vadim Richter (Pa) Service: Trauma Author Type: Physician Armored Transport Service Manager Type: Progress Notes Filed: 07/29/2018 2:07 PM [...] 0659 07/29/18 07 - 07/30/18 0659 Shift 6150-9748 3634-0469 7094-2998 24 Hour Total 9506-9259 0804-7256 7177-7096 24 Hour Total I N T A K E PO 254 952 6164 120 120 PO 782 023 8684 120 120 IV 345 345 IVPB 250 250 LR 95 95 Shift Total 2006 051 6735 120 120 O U T P U T Urine 371 850 0392 Void (ml) 799 638 4200 Shift Total 745 174 6564 Weight (kg) 86.8 86.8 81.6 81.6 81.6 [...] July 29, 2018 TIME: 2:06 PM Pager: [phone] HEMOGRAM/DIFF Collected: 07/29/2018 Status: F Source: [facility] 3:55 AM HEALTH SYSTEM REPOSITORY TYPE [...] LAB MONON(LOIN 0.30-0.82 thou/cmm C) Abs. High Pike 0.95 LAB EOSN(LOINC 0.04-0.54 thou/cmm ) Abs. Eosin 0.12 LAB BASON(LOIN 0.01-0.08 thou/cmm C) Abs. Baso 0.02 Performed By: #### CBCD1 #### [facility] [address] [place] [id number] IONIZED CALCIUM Collected: 07/29/2018 Status: F Source: [facility] 3:55 AM HEALTH SYSTEM REPOSITORY TYPE CODE TESTS RESULT OUT OF REFERENCE UNITS RANGE LAB CAION(LOINC 4.43-4.93 mg/dL ) Ionized 4.69 Calcium LAB PHCAI(LOINC 7.320-7.420 ) pH 7.377 LAB CAPH(LOINC) 4.36-4.73 mg/dL Ionized 4.64 Ca,PH7.4 Performed By: #### IONCA #### [place] [address] BASIC PANEL Collected: 07/29/2018 Status: F Source: [facility] 3:55 AM HEALTH SYSTEM REPOSITORY TYPE [...] Gap 10 Performed By: #### P8 #### [place] [address] PHOSPHORUS BLOOD Collected: 07/29/2018 Status: F Source: [facility] 3:55 AM HEALTH SYSTEM REPOSITORY TYPE CODE TESTS RESULT OUT OF REFERENCE UNITS RANGE LAB PHOS(LOINC 2.5-4.9 mg/dL ) Phosphorus Blood 3.8 Performed By: #### PHOS #### [place] [address] MAGNESIUM BLOOD Collected: 07/29/2018 Status: F Source: [facility] 3:55 AM [facility] REPOSITORY TYPE CODE TESTS RESULT OUT OF REFERENCE UNITS RANGE LAB MAG(LOINC) 1.6-2.6 mg/dL Magnesium Blood 2.1 Performed By: #### MAG #### [place] [address] HGB A1C Collected: 07/29/2018 Status: F Source: [facility] 3:55 AM HEALTH SYSTEM REPOSITORY TYPE CODE TESTS RESULT OUT OF RANGE REFERENCE UNITS LAB A1C5(LOINC) 4.2-6.3 % High Hgb A1c 6.6 Result Comment: Method is National Glycohemoglobin Standardization Program (NGSP) compliant. LAB ESAVG(LOINC) mg/dl Est. Avg Glucose 143 Performed By: #### HA1C #### [facility] [address] [place] [address] CONSULT Observed: 07/28/2018 Status: COMPLETED Source: [place] 9:46 PM CLINIC OTHER CAMPUS REPOSITORY HNO ID: [id number] Author: Marlin Gagnon Service: Hospital Medicine Author Type: Physician Type: Consults Filed: 07/28/2018 10:17 PM Note Text: DEPARTMENT OF HOSPITAL MEDICINE INITIAL CONSULT SERVICE DATE: 07/28/2018 SERVICE TIME: 9:46 PM Primary Care Physician: Roland Farah MD NIGHT AND WEEKEND COVERAGE: After 7pm, please call cross cover pager #[phone] REASON FOR CONSULT: dizziness REQUESTING PHYSICIAN: Dr Alondra Ortega Subjective CHIEF COMPLAINT: Fall HPI: 68 year old male with hx tobacco abuse, COPD and Cad for which he follows at [facility] presents with a fall at home. Patient [...] these episodes occur. He reports seeing his pulling machine operator yearly in [place] but always refuses echo due to cost. [...] LEAD ELECTROCARDIOGRAM Observed: 07/28/2018 Status: F Source: [place] 2:11 PM [facility] REPOSITORY [facility] [address] [place] [address] 12 Lead EKG 07/27/18 0508 MR#: [id number] Acct: [id number] Name: JANETT VUONG Rep #: [id number] : 1950 68 From: Xavi Brody MD [...] ECG Confirmed by XAVI BRODY MD ([id number]), electronic news gathering editor DESTINI GAVIRIA ([id number]) on 07/28/2018 2:11:07 PM Referred By: Xavi Brody Confirmed By:XAVI BRODY MD 07/28/18 1411 Date Xavi Brody MD CC: No Primary Care Physician; Zaki Smith MD Signed PLAN OF CARE Observed: 07/28/2018 Status: COMPLETED Source: [place] 1:02 PM [facility] REPOSITORY HNO ID: [id number] Author: Flako Stephens (Senior Data Mining Analyst) Service: Pharmacy Author Type: Pharmacist Type: Plan of Care Filed: 07/28/2018 1:04 PM Note Text: MEDICATION HISTORY AND MEDICATION RECONCILIATION Patient Name:Galen Vuong : 1950 Source of history:Patient: Reliability of source: Appears reliable, clearly identified: Medication name, Medication dose, Medication route and Medication frequency and Pharmacy records: [facility] [phone] from [employer] Medication Nonadherence Identified: No barriers noted The above information represents the best possible medication history: Yes Reconciliation completed? Yes All ENG[employer]ER [employer] medications addressed by LIP Additional comments: ? Medications removed - Flonase, amoxicillin (both course of therapy complete) Allergies: ALLERGIES No Known Allergies Preferred Pharmacy: [facility] [phone] Current [employer] Medications: Prior to Admission medications as of [...] tablet daily. Yes Flako Stephens, PharmD PGY1 Senior Data Mining Analyst [phone] Page: [phone] July 28, 2018 1:02 PM PROGRESS Observed: 07/28/2018 Status: COMPLETED Source: [place] 6:34 AM [facility] REPOSITORY HNO ID: [id number] Author: Arthur Menchaca Service: General Surgery Author [...] - 07/28/1859 07/28/18699 - 07/29/18 0659 Shift 7050-5871 6639-4774 2178-3224 24 Hour Total 1040-0374 3954-4654 6593-5239 24 Hour Total I N T A K E PO 137 651 2074 PO 235 311 6291 IV 279 257.7 536.7 LR 279 257.7 536.7 Shift Total 879 729.7 1608.7 O U T P U T Urine 640 149 5078 Void (ml) 275 482 4817 Shift Total 193 685 6904 Weight (kg) 83 82.7 86.8 86.8 86.8 [...] July 28, 2018 TIME: 6:34 AM PAGER: [phone] CHEST 1 VIEW Observed: 07/28/2018 Status: F Source: [facility] 6:28 AM HEALTH SYSTEM REPOSITORY Performed at [facility] APPROVED BY: Emery Reddy MD EXAM TITLE: CHEST 1 VIEW DATE: 07/28/2018 06:08 INDICATION: Status post trauma. COMPARISON: CT scan dated 07/27/2018 Portable frontal view of the chest shows small right-sided pleural effusion. Probable atelectasis at both lung bases medially. No pneumothorax. Heart size is normal. IMPRESSION: Small right-sided pleural effusion. Probable atelectasis at both lung bases. PROGRESS Observed: 07/28/2018 Status: COMPLETED Source: [place] 6:21 AM CLINIC OTHER CAMPUS REPOSITORY O ID: [id number] Author: Josiah Herrera Service: ADT-SICU Author Type: [...] - 07/28/1859 07/28/18699 - 07/29/18 0659 Shift 7632-9447 3558-1035 3129-1604 24 Hour Total 5701-2344 1876-3702 1873-7328 24 Hour Total I N T A K E PO 303 917 7634 PO 404 994 6137 IV 279 257.7 536.7 LR 279 257.7 536.7 Shift Total 879 729.7 1608.7 O U T P U T Urine 226 130 6951 Void (ml) 108 869 0034 Shift Total 350 622 0962 Weight (kg) 83 82.7 86.8 86.8 86.8 [...] July 28, 2018 TIME: 6:21 AM PAGER: [phone] Awake and alert Repeat CXR shows no [...] IONIZED CALCIUM Collected: 07/28/2018 Status: F Source: [facility] 4:00 HEALTH SYSTEM REPOSITORY TYPE CODE TESTS RESULT OUT OF REFERENCE UNITS RANGE LAB CAION(LOINC 4.43-4.93 mg/dL ) Ionized 4.57 Calcium LAB PHCAI(LOINC 7.320-7.420 ) pH 7.374 LAB CAPH(LOINC) 4.36-4.73 mg/dL Ionized 4.51 Ca,PH7.4 Performed By: #### IONCA #### [facility] [address] [place] [address] HEMOGRAM/DIFF Collected: 07/28/2018 Status: F Source: [facility] 4:00 HEALTH SYSTEM REPOSITORY TYPE CODE [...] LAB MONON(LOIN 0.30-0.82 thou/cmm C) Abs. High Pike 0.98 LAB EOSN(LOINC 0.04-0.54 thou/cmm ) Abs. Eosin 0.34 LAB BASON(LOIN 0.01-0.08 thou/cmm C) Abs. Baso 0.02 Performed By: #### CBCD1 #### [place] [address] BASIC PANEL Collected: 07/28/2018 Status: F Source: [facility] 4:00 AM HEALTH SYSTEM REPOSITORY TYPE [...] Gap 9 Performed By: #### P8 #### [place] [id number] PHOSPHORUS BLOOD Collected: 07/28/2018 Status: F Source: [facility] 4:00 AM HEALTH SYSTEM REPOSITORY TYPE CODE TESTS RESULT OUT OF REFERENCE UNITS RANGE LAB PHOS(LOINC 2.5-4.9 mg/dL ) Phosphorus Blood 2.8 Performed By: #### PHOS #### [facility] [address] [place] [address] MAGNESIUM BLOOD Collected: 07/28/2018 Status: F Source: [facility] 4:00 AM HEALTH SYSTEM REPOSITORY TYPE CODE TESTS RESULT OUT OF REFERENCE UNITS RANGE LAB MAG(LOINC) 1.6-2.6 mg/dL Magnesium Blood 2.1 Performed By: #### MAG #### [facility] [address] [place] [address] Observed: 07/27/2018 Status: F Source: [facility] MRSA SCREEN 2:45 PM HEALTH SYSTEM REPOSITORY Test performed at [facility] No MRSA detected. Performed By: #### MRSA #### [facility] [address] [place] [address] TOTAL 25-OH VITAMIN Collected: 07/27/2018 Status: F Source: [facility] D 2:30 PM HEALTH SYSTEM REPOSITORY TYPE CODE TESTS RESULT OUT OF REFERENCE UNITS RANGE LAB 25VD1(LOINC 30.0-100.0 ng/mL ) Low Total 25-OH 28.6 Vitamin D Performed By: #### 25VD1 #### [facility] [address] [place] [address] CONSULT Observed: 07/27/2018 Status: COMPLETED Source: [place] 1:13 PM CLINIC OTHER CAMPUS REPOSITORY O ID: [id number] Author: Josiah Herrera Service: ADT-SICU Author Type: Physician Type: Consults Filed: 07/28/2018 9:56 AM Note Text: []Hide copied text SICU Consult Note ? ARRIVAL DATE: 07/27/2018 ARRIVAL TIME: 09 ? CATEGORY: Level 3 ? INJURY DATE: 07/26/18 INJURY TIME: evening ? ? Subjective This is a 68 year old White male- Transfer from [place]. GCS at Scene was 15. Patient presents [...] ? PRIOR TO ARRIVAL: Imaging obtained in [place] prior to arrival ? IMAGES CT H/N/C/A/P [...] PROV NOTE Observed: 07/27/2018 Status: COMPLETED Source: [place] 10:52 AM [facility] OTHER CAMPUS REPOSITORY O ID: [id number] Author: Jagruti Dominguez DO Service: Emergency Medicine [...] the emergency department as a transfer from [facility] for trauma evaluation. Around 10 PM last [...] HISTORY PHYSICAL Observed: 07/27/2018 Status: COMPLETED Source: [place] 10:32 AM [facility] OTHER CAMPUS REPOSITORY O ID: [id number] Author: Zunilda Holloway Service: Trauma Author Type: [...] Date: 07/7018 Time: 2:11 PM [facility] ARRIVAL DATE: 07/27/2018 ARRIVAL TIME: 0915 CATEGORY: Level 3 INJURY DATE: 07/26/18 INJURY TIME: evening Subjective This is a 68 year old White male- Transfer from [place]. GCS at Scene was 15. Patient presents [...] H/N/C/A/P PRIOR TO ARRIVAL: Imaging obtained in [place] prior to arrival IMAGES CT H/N/C/A/P CT [...] #: EKG Observed: 07/27/2018 Status: F Source: [place] 9:55 AM [facility] OTHER CAMPUS REPOSITORY NAME : JANETT VUONG PID : [id number] : 1950 Gender : Male Race : [...] ms QTC Calculation(Bezet) : 421 ms P Bivalve : 72 degrees R Bivalve : 9 degrees T Bivalve : 35 degrees Test Reason : Location : 4 : [place] [address] Overread By : DO Dominguez [place] Editted By : DO Dominguez [place] Referred By : , Acquired by : Renetta Cash ED PROV NOTE Observed: 07/27/2018 Status: COMPLETED Source: [place] 9:43 AM [facility] OTHER CAMPUS REPOSITORY HNO ID: [id number] Author: Kassidy Eli DO Service: Emergency Medicine [...] Injury: the patient arrives via ems from [facility], fell off a porch last night into an air conditioning unit +dizziness, -loc, has left rib fx 7-10 with left lower lung contusion, on plavix, here for further eval, a/o x3 on arrival, no distress noted 68-year-old male presenting as a trauma consult from [facility] following a fall from his porch in [...] male presenting as a trauma consult from [facility] following a fall off his porch resulting [...] ED NOTE Observed: 07/27/2018 Status: COMPLETED Source: [place] 9:33 AM [facility] REPOSITORY HNO ID: [id number] Author: Coco GageRn) MARCE Gaviria Service: Emergency Medicine Author Type: Registered Nurse Type: ED Notes Filed: 07/27/2018 9:33 AM Note Text: Pt placed on deck worker, noninvasive blood pressure cuff and continuous pulse oximetry for clinical monitoring ED NOTE Observed: 07/27/2018 Status: COMPLETED Source: [place] 9:15 AM [facility] REPOSITORY HNO ID: [id number] Author: Gurmeet (Medic) Candace Birmingham Service: (none) Author Type: Director Life Sciences and Coconut Jelly Roller Type: ED Notes Filed: 07/27/2018 9:15 AM Note Text: Bed: 10-ED Expected date: 07/27/18 Expected time: 9:10 AM Means of arrival: [facility] Comments: [facility] EMERGENCY DEPARTMENT Observed: 07/27/2018 Status: F Source: [place] SUMMARY 7:41 AM [facility] REPOSITORY [facility] Medical Records Department [address] [place] [address] Emergency Department Summary 07/27/18 0707 MR#: [id number] Acct: [id number] Name: JANETT VUONG Rep #: [id number] : 1950 68 From: Zaki Smith MD PCP: Care Physician, No Primary Status: [...] with the patient, I contacted [facility]. Dr. Ceron accepted the patient to the emergency department. Treatment Plan: As above Disposition: Transfer to [facility] Impression: 1. Left rib fractures 7, 8, 9, and 10 2. left pulmonary contusion This note was generated with [employer] dictation software. It may contain incorrect words, [...] your Primary Care Provider. Call [facility] ([phone]) or report to the closest Emergency Room. Call 911 if necessary. 07/27/18 0741 <Electronically signed by Zaki Smith MD> Date Zaki Ureña Signature (If Indicated): Date CC: No Primary Care Physician URINALYSIS, COMPLETE Collected: 07/27/2018 Status: F Source: [place] 7:05 AM [facility] REPOSITORY Order Comment: How was Urine Obtained? OUTSOLE CASER TO SPECIFY TYPE CODE TESTS RESULT OUT [...] URINE SEEN Performed By: #### L400.0001 #### [facility] [address] [place], [place], [id number] CBC W/DIFF, AUTOMATED Collected: 07/27/2018 Status: F Source: [place] 5:00 AM [facility] REPOSITORY TYPE CODE TESTS RESULT OUT OF [...] Lymph 1.09 Performed By: #### L100.0100 #### [facility] [address] [place], [place], [address] BASIC METABOLIC Collected: 07/27/2018 Status: F Source: [place] PROFILE ([facility]) 5:00 AM [facility] REPOSITORY TYPE CODE TESTS RESULT OUT OF [...] 10 Performed By: #### L500.2500, L501.4010 #### [facility] [address] [facility] [place], [place], [address] TROPONIN-I Collected: 07/27/2018 Status: F Source: [place] 5:00 AM [facility] REPOSITORY TYPE CODE TESTS RESULT OUT OF RANGE REFERENCE UNITS LAB L501.4010 <0.045 ng/mL Normal < 0.015 TROPONIN-I Result Comment: TROPONIN-I EXPECTED VALUES <0.045 Negative 0.045 - 0.590 Consistent with Cardiac Damage > OR = 0.600 Critical Value Not every elevated troponin is indicative of ME. These values should be used with clinical judgement in examining the patient's clinical picture for diagnosis. To establish a diagnosis of ME versus myocardial injury, there must be a demonstrated rise and/or fall in the troponin values, in addition to ischemic symptoms, EKG changes, new regional wall motion abnormality, and/or angiographical evidence. PLEASE NOTE: REFERENCE RANGES EDITED 18 Performed By: #### L500.2500, L501.4010 #### [facility] [address] [facility] [place], [address] BRAIN/HEAD WITHOUT Observed: 07/27/2018 Status: F Source: [place] CONTRAST 4:59 AM [facility] REPOSITORY [facility] Imaging Services [address] [place] [address] Brain/Head without Contrast MR#: [id number] Acct: [id number] Name: JANETT VUONG Rep #: [id number] : 1950 M 68 From: Farhan Levine MD PCP: Care Physician, No Primary Status: REG ER Study: Brain/Head without Contrast Date of Exam: 07/27/18 Exam# [id number] Ordering Dr: Zaki Smith MD STUDY: CT [...] No Primary Care Physician; Zaki Smith MD Pumper Gager Apprentice: Signed SPINE CERVICAL Observed: 07/27/2018 Status: F Source: [place] WITHOUT CONTRAS 4:59 AM [facility] REPOSITORY [facility] [address] [place] [address] Spine Cervical without Contras MR#: [id number] Acct: [id number] Name: JANETT VUONG Rep #: [id number] : 1950 M 68 From: Farhan Levine MD PCP: Care Physician, No Primary Status: REG ER Study: Spine Cervical without Contras Date of Exam: 07/27/18 Exam# [id number] Ordering Dr: Zaki Smith MD STUDY: CT [...] No Primary Care Physician; Zaki Smith MD Pumper Gager Apprentice: Signed CHEST WITH CONTRAST Observed: 07/27/2018 Status: F Source: [place] 4:59 AM [facility] REPOSITORY [facility] Imaging Services [address] [place] [address] Chest WITH Contrast MR#: [id number] Acct: [id number] Name: JANETT VUONG Rep #: [id number] : 1950 M 68 From: Farhan Levine MD PCP: Care Physician, No Primary Status: REG ER Study: Chest WITH Contrast Date of Exam: 07/27/18 Exam# [id number] Ordering Dr: Zaki Smith MD STUDY: CT [...] No Primary Care Physician; Zaki Smith MD Pumper Gager Apprentice: Signed ABDOMEN/PELVIS W IV CONT Observed: 07/27/2018 Status: F Source: QAMAR ONLY 4:59 AM [facility] REPOSITORY [facility] [place] [address] [place] [address] Abdomen/Pelvis W IV Cont ONLY MR#: [id number] Acct: [id number] Name: JANETT VUONG Rep #: [id number] : 1950 M 68 From: Farhan Lveine MD PCP: Care Physician, No Primary Status: REG ER Study: Abdomen/Pelvis W IV Cont ONLY Date of Exam: 07/27/18 Exam# [id number] Ordering Dr: Zaki Smith MD STUDY: CT [...] No Primary Care Physician; Zaki Smith MD Pumper Gager Apprentice: Signed CARDIOLOGY VISIT Observed: 07/22/2018 Status: F Source: QAMAR REPORT 2:00 [facility] REPOSITORY [facility] 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 2. Atherosclerosis of tling[place] & ha[place] coronary artery of tling[place] & ha[place] heart without angina pectoris I25.10 S/P PTCA [...] care. Plan Detail Follow Up 1 Year (tester vibrator equipment) Coding Level of Care Code Off vis,est,level 3 Diagnoses Essential hypertension I10 Atherosclerosis of tling[place] & [place] coronary artery of tling[place] & [place] heart without angina pectoris I25.10 Hyperlipidemia E78.5 Coding Level of Care Code Off vis,est,level 3 Diagnoses Essential hypertension I10 Atherosclerosis of tling[place] & [place] coronary artery of tling[place] & ha[place] heart without angina pectoris I25.10 Hyperlipidemia E78.5 07/22/18 1400 <Electronically signed by Xavi Brody MD> Date Xavi Brody MD Cosigner Signature: Date (if applicable) CC: No Primary Care Physician LIVER PROFILE Collected: 07/21/2018 Status: F Source: QAMAR 5:44 AM [facility] REPOSITORY TYPE CODE TESTS RESULT OUT OF [...] 0.13 Performed By: #### L500.3400, L500.4100 #### [facility] [address] [place], [address] LIPID PROFILE Collected: 07/21/2018 Status: F Source: QAMAR 5:44 AM [facility] REPOSITORY TYPE CODE TESTS RESULT OUT OF [...] 15 Performed By: #### L500.3400, L500.4100 #### [facility] [address] [place], [place], [address] CARDIOLOGY VISIT Observed: 12/25/2017 Status: F Source: QAMAR REPORT 3:57 PM [facility] REPOSITORY [facility] [address] [place] [address] OFFICE VISIT Date of Service: 12/25/17 MR#: [id number] Acct: [id number] Name: JANETT VUONG Rep #: [id number] : 1950 Provider: ALICIA Jimenez Age/Sex: 67/M Location[facility] Status: Signed HPI HPI Details: JANETT VUONG, [...] brachial Intake Visit Reasons: 6 M FU Import Dispatcher Required: No Accompanied by: None Is patient [...] PFSH Medical History Hypertension (Chronic) Atherosclerosis of tling[place] & ha[place] coronary artery of tling[place] & [place] heart without angina pectoris (Chronic) Hyperlipidemia (Chronic) [...] fraction. Assessment AND Plan 1. Atherosclerosis of tlingit & haida coronary artery of tlingit & ha[place] heart without angina pectoris I25.10 S/P PTCA [...] Orders: Plan Detail Additional Comments - Sampson Jiemnez NP-C Discussed the above patient with Dr. [...] prior to saving. 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 I25.10 Essential hypertension [...] REACTION SEVERITY SOURCE 11/06/2018 Drug simvastatin/F006 Hives [facility] Allergy/416 615346(RXNORM) Hospital 045886(SNOM Repository ED CT) 11/06/2018 Drug atorvastatin/F00 MUSCLE ACHES [facility] Allergy/029 8740219(RXNORM) Hospital 873233(SNOM Repository ED CT) Drug NO KNOWN [facility] Class/03435 ALLERGIES Other [place] 1003(SNOMED Repository CT) NG/86496972 NO KNOWN [facility] 6(SNOMED [facility] CT) Repository ENCOUNTERS ENCOUNTERS ADMIT/DISCHARGE ACCOUNT NUMBER ADMITTING ENCOUNTER LOCATION SOURCE CLASS 11/06/2018/11/06/19 [id number] Emergency [address] ding:ED Repository 11/05/2018/11/06/19 [id number] Ambulatory [address] ding:SDCRoom Repository : MS305 10/30/2018 [id number] Ambulatory [facility] ding:DC Repository 10/27/2018 [id number] Ambulatory BMSBuilding: [facility] Repository 10/06/2018 [id number] Ambulatory [facility] ding:CLSP Repository 10/06/2018 [id number] Ambulatory BMSBuilding: [facility] Repository 09/23/2018 [id number] Ambulatory [facility] ding:LAB Repository 09/23/2018/09/23/20 [id number] Ambulatory BMSBuilding: [place] [facility] Repository 09/18/2018/09/19/20 [id number] Ambulatory [address] ding:DC Repository 09/17/2018/09/17/20 [id number] Ambulatory BMSBuilding: [place] 18 [facility] Repository 09/09/2018 [id number] Ambulatory [facility] ding:US Repository 08/18/2018 [id number] [facility]ulatory [facility] Hospital ding:LABSPEC Repository 08/15/2018 [id number] [facility]ulatory [facility] ding:MTLAB Repository 08/11/2018 [id number] [facility]ulatory [facility] ding:CVS Repository 08/11/2018 [id number] Ambulatory BMSBuilding: [facility] Repository 08/11/2018 [id number] [facility]ulatory [facility] ding:CVS Repository 08/04/2018/08/04/20 [id number] Ambulatory BMSBuilding: [place] 18 [facility] Repository 07/27/2018/07/30/20 [id number] ALONDRA ORTEGA Inpatient [place] 18 Encounter Clinic Other [place] Repository 07/27/2018/07/30/20 [id number] ALONDRA ORTEGA F Inpatient [place] [facility] 18 Encounter [facility] MEDICAL Repository CENTERBuildi nARoom: 5217Bed: 02 07/27/2018/07/27/20 [id number] Emergency [facility] 18 [facility] ding:ED Repository 07/22/2018/07/22/20 [id number] Ambulatory BMSBuilding: [place] 18 BMS.[facility] Repository 07/21/2018 [id number] Ambulatory [facility] ding:LAB Repository 07/17/2018 [id number] Ambulatory BMSBuilding: [facility] BMS.[facility] Repository 12/25/2017/12/26/19 [id number] Ambulatory BMSBuilding: [place] 18 BMS.[facility] Repository PAYERS PAYERS ENCOUNTER GUARANTOR PAYER SUBSCRIBER SOURCE 11/06/2018 JANETT T Primary KIMMIE E [facility] [id number] Insurance:ANTHEMPolic BROOKSDOB: [facility] y Number: [id number] [id number] Repository [address]Isc: 330) jayme Date:5393-47-36QY [phone] () [address] [place] [address] 22324ZN: 11/06/2018 Secondary JANETT T [place] Insurance:MEDICARE [place]OB: Community PART A [facility] [id number] [facility] Number: Repository [id number] Date:2018-11-06 11/06/2018 Tertiary NOT GIVENUNK [place] Insurance:SELF PAY [facility] Number: Effective Repository Date:2018-11-06 11/05/2018 JANETT T Primary KIMMIE E [place] [id number] Insurance:ANTHEMPolic BROOKSDOB: [facility] y Number: [id number], [place] [id number] Repository 654[address]Zjh: (330) jayme Date:4121-07-94SJ [phone] () [address] [place] [address] 73114OS: 11/05/2018 Secondary JANETT T [place] Insurance:MEDICARE [place]: Community PART A olic [id number] Hospital Number: Repository [id number] Date:2018-09-30 11/05/2018 Tertiary NOT GIVENUNK [place] Insurance:SELF PAY [facility] Number: Effective Repository Date:2018-09-30 10/30/2018 JANETT T Primary KIMMIE E [place] [id number] Insurance:ANTHEMPolic [place]OOK[place]OB: Community DAVEY y Number: [id number], [place] [id number] Repository [address]Quz: 330 jayme Date:1641-87-57PO [phone] () [id number] [place] [address] 86771EM: 10/30/2018 Secondary JANETT T [place] Insurance:MEDICARE [place]OB: Community PART A [facility] [id number] Hospital Number: Repository [id number] Date:2018-09-08 10/30/2018 Tertiary NOT GIVENUNK [place] Insurance:SELF PAY [facility] Hospital Number: Effective Repository Date:2018-09-20 10/27/2018 JANETT T Primary KIMMIE E [place] [id number] Insurance:ANTHEMPolic [place]OOK[place]OB: Community DAVEY y Number: [id number], [place] [id number] Repository [address]Kpc: 330) jayme Date:4459-96-03EV [phone] () [address] [place] [address] 75396CO: 10/27/2018 Secondary JANETT T [place] Insurance:MEDICARE [place]: Community PART A [facility] [id number] Hospital Number: Repository [id number] Date:2018-09-08 10/27/2018 Tertiary NOT GIVENUNK [place] Insurance:SELF PAY [facility] Hospital Number: Effective Repository Date:2018-10-27 10/06/2018 JANETT T Primary KIMMIE E [facility] [id number] Insurance:ANTHEMPolic [place]OB: Community DAVEY y Number: [id number], [place] [id number] Repository [address]Eup: (330) jayme Date:5364-36-73NI [phone] () [address], [place] [address]PL: 10/06/2018 Secondary JANETT T [place] Insurance:MEDICARE [place]OB: Community PART A [facility] [id number] Hospital Number: Repository [id number] Date:2018-09-22 10/06/2018 Tertiary NOT GIVENUNK [place] Insurance:SELF PAY [facility] Number: Effective Repository Date:2018-09-22 10/06/2018 JANETT T Primary KIMMIE E [place] [id number] Insurance:ANTHEMPolic [place]OB: Community DAVEY y Number: [id number], [place] [id number] Repository 16[address]Vvh: (330) jayme Date:1291-68-71HN [phone] () [address]YNRQMMS, [place] [address]QK: 10/06/2018 Secondary JANETT T [place] Insurance:MEDICARE [place]: Community PART A [facility] [id number] Hospital Number: Repository [id number] Date:2018-09-22 10/06/2018 Tertiary NOT GIVENUNK [place] Insurance:SELF PAY [facility] Hospital Number: Effective Repository Date:2018-10-06 09/23/2018 JANETT T Primary KIMMIE E [place] [id number] Insurance:ANTHEMPolic [place]OB: Community DAVEY y Number: [id number], [place] [id number] Repository 27[address]Kcn: (330) jayme Date:3554-65-70TE [phone] () [address]KOIIXG, [place] [address]OV: 09/23/2018 Secondary JANETT T [place] Insurance:MEDICARE [place]: Community PART A [facility] [id number] Hospital Number: Repository [id number] Date:2018-09-23 09/23/2018 Tertiary NOT GIVENUNK [place] Insurance:SELF PAY [facility] Hospital Number: Effective Repository Date:2018-09-23 09/23/2018 JANETT T Primary JANETT T [place] [id number] Insurance:MEDICARE [place]OB: Community DAVEY PART A olicy [id number], [place] Number: Repository 10[address]Hin: 330 [id number] [phone] () Date:2018-09-17 09/23/2018 Secondary KIMMIE E [place] Insurance:ANTHEMPolic [place]OOK[place]OB: Community y Number: [id number] Hospital [id number] Repository jayme Date:2113-03-56NG [address] [place] [address] 10[address]GA: 09/23/2018 Tertiary NOT GIVENUNK [place] Insurance:SELF PAY [facility] Number: Effective Repository Date:2018-09-23 09/18/2018 [facility] Primary KIMMIE E [place] [id number] Insurance:ANTHEMPolic [place]OOK[place]OB: Community DAVEY y Number: [id number], [place] [id number] Repository [address]87[address]Rbp: 330) jayme Date:9188-08-69VX [phone] () [address] [place] [address] 79048SM: 09/18/2018 Secondary JANETT T [place] Insurance:MEDICARE [place]: Community PART A [facility] [id number] Hospital Number: Repository [id number] Date:2018-09-08 09/18/2018 Tertiary NOT GIVENUNK [place] Insurance:SELF PAY [facility] Number: Effective Repository Date:2018-09-08 09/17/2018 JANETT T Primary KIMMIE E [place] [id number] Insurance:ANTHEMPolic [place]OB: Community DAVEY y Number: [id number], [place] [id number] Repository [address]Jvu: (330) jayme Date:9093-30-91PP [phone] () [address] [place] [address] 65277XR: 09/17/2018 Secondary JANETT T [place] Insurance:MEDICARE [place]: Community PART A [facility] [id number] Hospital Number: Repository [id number] Date:2018-08-04 09/17/2018 Tertiary NOT GIVENUNK [place] Insurance:SELF PAY [facility] Hospital Number: Effective Repository Date:2018-09-10 09/09/2018 JANETT T Primary KIMMIE E [place] [id number] Insurance:ANTHEMPolic [place]OB: Community DAVEY y Number: [id number], [place] [id number] Repository [address]Pww: (330) jayme Date:7471-38-33DO [phone] () [address] [place] [address] 61621JL: 09/09/2018 Secondary JANETT T [place] Insurance:MEDICARE [place]: Community PART A [facility] [id number] Hospital Number: Repository [id number] Date:2018-09-05 09/09/2018 Tertiary NOT GIVENUNK [place] Insurance:SELF PAY [facility] Hospital Number: Effective Repository Date:2018-09-05 08/18/2018 JANETT T Primary KIMMIE E [place] [id number] Insurance:ANTHEMPolic [place]OB: Community DAVEY y Number: [id number], [place] [id number] Repository 355[address]Zzq: (330) jayme Date:3957-13-50LU [phone] () [address] [place] [address] 06677TQ: 08/18/2018 Secondary JANETT T [place] Insurance:MEDICARE [place]: Community PART A [facility] [id number] Hospital Number: Repository [id number] Date:2018-08-18 08/18/2018 Tertiary NOT GIVENUNK [place] Insurance:SELF PAY [facility] Hospital Number: Effective Repository Date:2018-08-18 08/15/2018 JANETT T Primary KIMMIE E [place] [id number] Insurance:ANTHEMPolic [place]OB: Community DAVEY y Number: [id number], [place] [id number] Repository 60[address]Ugi: (330) jayme Date:4543-13-71TB -0237 () [address] [place] [address] 14423TR: 08/15/2018 Secondary JANETT T [place] Insurance:MEDICARE [place]: Community PART A BPolicy [id number] Hospital Number: Repository [id number] Date:2018-08-15 08/15/2018 Tertiary NOT GIVENUNK [place] Insurance:SELF PAY [facility] Number: Effective Repository Date:2018-08-15 08/11/2018 JANETT T Primary NOT GIVENUNK [place] [id number] Insurance:SELF PAY [place] Number: Effective Repository 480[address]Plz: (330) Date:2018-08-04818 () 08/11/2018 JANETT T Primary KIMMIE E [place] [id number] Insurance:ANTHEMPolic [place]OB: Community DAVEY y Number: [id number], [place] [id number] Repository [address]Wyd: (330) jayme Date:9848-65-98PN [phone] () [address] [place] [address] 47612IR: 08/11/2018 Secondary JANETT T [place] Insurance:MEDICARE [place]OB: Community PART A olicy [id number] Hospital Number: Repository [id number] Date:2018-08-04 08/11/2018 Tertiary NOT GIVENUNK [place] Insurance:SELF PAY [facility] Number: Effective Repository Date:2018-08-11 08/11/2018 JANETT T Primary KIMMIE E [place] [id number] Insurance:ANTHEMPolic [place]OB: Community DAVEY y Number: [id number], [place] [id number] Repository [address]Jmb: (330) jayme Date:2109-07-69PS [phone] () [address] [place] [address] 01324MW: 08/11/2018 Secondary JANETT Tiffanie [place] Insurance:MEDICARE [place]OB: Community PART A olicy [id number] Hospital Number: Repository [id number] Date:2018-08-04 08/11/2018 Tertiary NOT GIVENUNK [place] Insurance:SELF PAY [facility] Hospital Number: Effective Repository Date:2018-08-04 08/04/2018 JANETT T Primary KIMMIE E [place] [id number] Insurance:ANTHEMPolic [place]OB: Community DAVEY y Number: [id number] [place] [id number] Repository 936[address]Upz: (376) jayme Date:6451-98-38KX [phone] () [address]KGVDYIM, [place] [address]RQ: 08/04/2018 Secondary JANETT Tiffanie [place] Insurance:MEDICARE [place]OB: Community PART A [facility] [id number] Hospital Number: Repository [id number] Date:2018-07-31 08/04/2018 Tertiary NOT GIVENUNK [place] Insurance:SELF PAY [facility] Number: Effective Repository Date:2018-08-04 07/27/2018 JANETT Moreno Primary KIMMIE [facility] BROOKSDOB: Insurance:BLUE ACCESS BROOKSDOB: Health System PPOPolicy Number: [id number] Repository DAVEY [id number] [place] jayme Date: [address]Qbc: () 07/27/2018 Secondary JANETT T [facility] Insurance:MEDICARE A BROOKSDOB: Health System AND BPolicy Number: [id number] Repository [id number] Date: 07/27/2018 JANETT T Primary KIMMIE E [place] [id number] Insurance:ANTHEMPolic [place]OB: Community DAVEY y Number: [id number] [place] [id number] Repository [address]79[address]Kce: (526) jayme Date:9525-14-10FU [phone] () [address] [place] [address] 19566RG: 07/27/2018 Secondary JANETT T [place] Insurance:MEDICARE [place]OB: Community PART A olicy [id number] Hospital Number: Repository [id number] Date:2018-07-27 07/27/2018 Tertiary NOT GIVENUNK [place] Insurance:SELF PAY [facility] Hospital Number: Effective Repository Date:2018-07-27 07/22/2018 JANETT T Primary KIMMIE E [place] [id number] Insurance:ANTHEMPolic [place]OB: Community DAVEY y Number: [id number], [place] [id number] Repository 00[address]Tpt: (367) jayme Date:5163-26-67JZ [phone] () [address]LJWGTRH, [place] [address]VI: 07/22/2018 Secondary JANETT T [place] Insurance:MEDICARE [place]OB: Community PART A [facility] [id number] Hospital Number: Repository [id number] Date:2017-12-25 07/22/2018 Tertiary NOT GIVENUNK [place] Insurance:SELF PAY [facility] Hospital Number: Effective Repository Date:2018-07-22 07/21/2018 JANETT T Primary KIMMIE E [place] [id number] Insurance:ANTHEMPolic [place]OB: Community DAVEY y Number: [id number], [place] [id number] Repository [address]Azl: (535) jayme Date:9672-08-58JA [phone] () [address] [place] [address] 31006IY: 07/21/2018 Secondary JANETT T [place] Insurance:MEDICARE [place]OB: Community PART A [facility] [id number] Hospital Number: Repository [id number] Date:2018-07-21 07/21/2018 Tertiary NOT GIVENUNK [place] Insurance:SELF PAY [facility] Hospital Number: Effective Repository Date:2018-07-21 07/17/2018 JANETT T Primary JANETT T [place] [id number] Insurance:MEDICARE [place]OB: Community DAVEY PART A [facility] [id number], Number: Repository [place] [address]Zcq: [id number] Date:2018-07-17 () 07/17/2018 Secondary KIMMIE E [place] Insurance:ANTHEMPolic BROOKSDOB: Community y Number: [id number] Hospital [id number] Repository jayme Date:5127-78-07PS [address]UZYBCFK, [place] [address]PS: 07/17/2018 Tertiary NOT GIVENUNK [place] Insurance:SELF PAY [facility] Number: Effective Repository Date:2018-07-17 12/25/2017 JANETT T Primary JANETT T [place] [id number] Insurance:MEDICARE [place]OB: Community DAVEY PART A [facility] [id number], Number: Repository [place] [address]Cto: [id number] Date:2017-10-01 () 12/25/2017 Secondary KIMMIE E [place] Insurance:ANTHEMPolic BROOKSDOB: Community y Number: [id number] Hospital [id number] Repository jayme Date:6901-82-17JS [address]WBYV, [place] [address]DR: 12/25/2017 Tertiary NOT GIVENUNK [place] Insurance:SELF PAY [facility] Number: Effective Repository Date:2017-10-01
== END 2018-11-06 12:40 | disposition home or self-care (01) ==
LOC: SDC 11:53 → AC 11:54 → MS3 14:53
PROVIDERS: Family Provider Family Medicine; PCP Family Medicine; Referring Provider Urology; Visit Provider Urology
PROC: 0TBB8ZZ Excision of Bladder, Via Natural or Artificial Opening Endoscopic (ICD-10-PCS; CPT 52235; principal; 2018-11-05 14:25)
DX: C67.9 Malignant neoplasm of bladder, unspecified (principal); N40.1 Benign prostatic hyperplasia with lower urinary tract symptoms; R35.0 Frequency of micturition; R35.1 Nocturia; R33.8 Other retention of urine; I25.10 Atherosclerotic heart disease of native coronary artery without angina pectoris; I10 Essential (primary) hypertension; E78.5 Hyperlipidemia, unspecified; E11.9 Type 2 diabetes mellitus without complications; F17.210 Nicotine dependence, cigarettes, uncomplicated; R97.20 Elevated prostate specific antigen [PSA]
CPT/HCPCS: 00912; 52235; 51702; 82962; 88305; 88307; 93005; 99283; 99406; J7030; J7120; A4216; J3490; J9280

== ENCOUNTER 2018-11-06 19:19 | Emergency (ER) | payer BC, MEDICARE, SELFPAY ==
[2018-11-05 17:54] VITALS: BMI 27.4
[2018-11-06 19:20] VITALS: BP 148/79; PULSE 78; RESP 16; TEMP 36.8; O2SAT 97; BMI 26.5
--- NOTE | 2018-11-06 20:35 | ED.DCSUM_ITS ---
- ER Visit Summary Date of Service: 11/06/18 Chief Complaint: Urinary retention History of Present Illness: The patient is a [address] Ochoa, Dr. Brody, and Dr. De La Vega. He reports that he had surgery yesterday for a bladder tumor and a TURP. He had his catheter removed approximately noon today and was able to urinate following this. However as the night is gone on he is just started to dribble. He denies any fever or chills. No nausea, vomiting, or other constitutional symptoms. Physical Examination: Vitals: Stable. Afebrile. General: Well-nourished and well-developed. Head: Normocephalic atraumatic. Neck: Supple, no lymphadenopathy. No JVD. Nontender. Cardiovascular: Regular rate and rhythm. No murmurs. Respiratory: No respiratory distress. Clear to auscultation bilaterally. Abdominal: Soft, mild suprapubic tenderness to palpation over an obviously dis tended bladder, nondistended, normal bowel sounds. No guarding, rebound, or peritoneal signs. Back: Nontender. Extremities: Nontender, no edema. Skin: Normal color, no rash. Neurologic: Alert and oriented ?3. Cranial nerves II through XII are intact. Normal strength and sensation. Psych: Normal affect. Emergency Department Course and Treatment: Patient had a Berrios catheter placed without difficulty. He tolerated this well. It drained approximately 900 cc of pink tinged urine. There were no clots. It is draining well. Treatment Plan: Patient was discussed with Dr. Ochoa. He would like the patient discharged with instructions to continue his Cipro. Follow-up in 1 week to have the catheter removed. Return to the emergency department for any worsening symptoms. Disposition: To home in improved and stable condition. Impression: 1. Urinary retention. 2. 1 day status post bladder surgery. This note was generated with Netrounds dictation software. It may contain incorrect words, spelling, and punctuation that were not noted in review of the chart prior to signing ED Disposition - Plan for ED Patient: Chief Complaint: Complaint Instructions: ED Retention Urinary Male Referrals: Ross Ochoa MD [STAFF PHYSICIAN] - 1 Week
[2018-11-06] MEDS: Lidocaine Jelly 2% 20 ML Syringe (URO-JET) 20 APPLIC TOPICAL (20:51)
[2018-11-06 21:05] VITALS: RESP 18
--- OUTSIDE RECORDS SUMMARY | 2019-01-11 12:43 | XMS RPT_ITS ---
:1950 Author Organization OHIP Support Name Relationship Address Phone RADHA VUONGNDA Unavailable [address] + [place] [address] R Unavailable Unavailable Unavailable VUONG, KIMMIE Unavailable [address] + [place] [address] R Unavailable Unavailable Unavailable VUONG, KIMMIE Unavailable [address] + [place] [address] R Unavailable Unavailable Unavailable VUONG, KIMMIE Unavailable [address] + [place] [address] R Unavailable Unavailable Unavailable VUONG, KIMMIE Unavailable [address] + [place] [address] R Unavailable Unavailable Unavailable VUONG, KIMMIE Unavailable [address] + [place] [address] R Unavailable Unavailable Unavailable VUONG, KIMMIE Unavailable [address] + [place] [address] R Unavailable Unavailable Unavailable VUONG, KIMMIE Unavailable [address] + [place] [address] R Unavailable Unavailable Unavailable VUONG, KIMMIE Unavailable [address] + [place] [address] R Unavailable Unavailable Unavailable VUONG, KIMMIE Unavailable [address] + [place] [address] R Unavailable Unavailable Unavailable VUONG, KIMMIE Unavailable [address] + [place] [address] R Unavailable Unavailable Unavailable VUONG, KIMMIE Unavailable [address] + [place] [address] R Unavailable Unavailable Unavailable VUONG, KIMMIE Unavailable [address] + [place] [address] R Unavailable Unavailable Unavailable VUONG, KIMMIE Unavailable [address] + [place] [address] R Unavailable Unavailable Unavailable VUONG, KIMMIE Unavailable [address] + [place] [address] R Unavailable Unavailable Unavailable VUONG, KIMMIE Unavailable [address] + [place] [address] R Unavailable Unavailable Unavailable VUONG, KIMMIE Unavailable [address] + [place] [address] R Unavailable Unavailable Unavailable VUONG, KIMMIE Unavailable [address] + [place] [address] R Unavailable Unavailable Unavailable VUONG, KIMMIE Unavailable [address] + [place] [address] R Unavailable Unavailable Unavailable VUONG, KIMMIE Unavailable [address] + [place] [address] R Unavailable Unavailable Unavailable VUONG, KIMMIE Unavailable [address] + [place] [address] R Unavailable Unavailable Unavailable VUONG, KIMMIE Unavailable [address] + [place] [address] R Unavailable Unavailable Unavailable Care Team Providers Name Role Phone IMCA Primary Care Unavailable ALONDRA ORTEGA F Admitting Unavailable ALONDRA ORTEGA F Attending Unavailable MICHELLE HERRERAID F Consulting Unavailable JORDAN ALI Admitting Unavailable JORDAN ALI Attending Unavailable YELENAA FARID MURALI Consulting Unavailable Sampson Jimenez Attending Unavailable Raúl Prabhakar Referring Unavailable NoKenyatta trimble Attending Unavailable Mary Grace, [place] Attending Unavailable Mary Grace, [place] Referring Unavailable Primay Care Physicia, No Primary Care Unavailable Mary Grace, Xavi Attending Unavailable Primay Care Physicia, No Referring Unavailable Mary Grace, Xavi Attending Unavailable Mary Grace, [place] Referring Unavailable Sampson De La Vega Primary Care Unavailable Mary Grace, Xavi Attending Unavailable Mary Grace, Xavi Referring Unavailable Ross Ochoa Attending Unavailable Ross Ochoa Referring Unavailable Schinner, Sampson E Primary Care Unavailable Mary Grace, [place] Attending Unavailable Mary Grace, Xavi Referring Unavailable Mary Grace, [place] Attending Unavailable Js Barrios Referring Unavailable Schinner, [...] Primay Care Physicia, No Referring Unavailable Schinner, Samposn E Attending Unavailable Schinner, Sampson E Primary Care Unavailable Nalini Moncada Attending Unavailable Primay Care Physicia, No Referring Unavailable Mary Grace, Xavi Attending Unavailable Mary Grace, Xavi Referring Unavailable Schinner, Sampson E Primary Care Unavailable PROBLEMS PROBLEMS DATE TYPE CONDITION / CODE ATTENDING STATUS SOURCE Unknown Z71.3 - Dietary Schinner, Active [facility] counseling and Sampson E Community surveillance / Hospital Z71.3(ICD-10) Repository Unknown R94.31 - Abnormal Mary Grace, Xavi Active [facility] electrocardiogram [ECG] Community [EKG] / R94.31(ICD-10) Hospital Repository Unknown R42 - Dizziness and Antwan, Active [place] giddiness / R42(ICD-10) [facility] Repository Unknown R55 - Syncope and Klaus Active [place] collapse / R55(ICD-10) [facility] Repository Unknown I48.91 - Unspecified Klaus Active [facility] atrial fibrillation / [facility] I48.91(ICD-10) Hospital Repository Unknown E78.00 - Pure Klaus, Active [facility] hypercholesterolemia, [place] Community unspecified / Hospital E78.00(ICD-10) Repository Unknown E78.0 - Pure Klaus, Active [facility] hypercholesterolemia / [place] [facility] Community E78.0(ICD-10) Hospital Repository Active Contusion of lung, MALLAT, ALI Active [facility] unilateral, initial Clinic Other encounter / [facility] S27.321A(ICD-10) Repository Active Dizziness and giddiness / MALLAT, ALI Active [facility] R42(ICD-10) Clinic Other [facility] Repository Active Unspecified fall, initial MALLAT, ALI Active [facility] encounter / Clinic Other W19.XXXA(ICD-10) [facility] Repository Active Multiple fractures of MALLAT, ALI Active [facility] ribs, left side, initial Clinic Other encounter for closed [facility] fracture / Repository S22.42XA(ICD-10) Active Hemoptysis / MALLAT, ALI Active [facility] R04.2(ICD-10) Clinic Other [facility] Repository Active Abnormal levels of other MALLAT, ALI Active [facility] serum enzymes / Clinic Other R74.8(ICD-10) [facility] Repository Admitting Unknown / UNK(Unknown) MALLAT, ALI F Active [facility] Repository Unknown S22.42XA - Multiple Zaki Smith Active [place] 8 fractures of ribs, left Community side, initial encounter Hospital for closed fracture / Repository S22.42XA(ICD-10) Unknown I10 - Essential (primary) Mary Grace, Xavi Active [facility] hypertension / Community I10(ICD-10) Hospital Repository Unknown I25.10 - Atherosclerotic Mary Grace, [place] Active [facility] 9 heart disease of [place] Community coronary artery without Hospital angina pectoris / Repository I25.10(ICD-10) Unknown E78.5 - Hyperlipidemia, Mary Grace, Xavi Active [facility] unspecified / Community E78.5(ICD-10) Hospital Repository Unknown E78.2 - Mixed Mary Grace, [place] Active [facility] hyperlipidemia / Community E78.2(ICD-10) Hospital Repository PROCEDURES PROCEDURES No Procedure Records FoundRESULTS RESULTS EMERGENCY DEPARTMENT Observed: 11/07/2018 Status: F Source: [place] SUMMARY 12:13 AM [facility] REPOSITORY [facility] Medical Records Department [address] [place] [address] Emergency Department Summary 11/06/182032 MR#: [id number] Acct: [id number] Name: JANETT VUONG Rep #: [id number] : 1950 68 From: Ranjan Guerrier MD [...] bladder surgery. This note was generated with [email or web address] software. It may contain incorrect words, [...] your Primary Care Provider. Call [facility] ([phone]) or report to the closest Emergency Room. Call 911 if necessary. 11/07/18 0013 <Electronically signed by Ranjan Guerrier MD> Date Ranjan Guerrier MD Cosigner Signature (If Indicated): Date CC: Sampson De La Vega MD BEDSIDE GLUCOSE Collected: 11/06/2018 Status: F Source: [place] 6:32 AM [facility] REPOSITORY TYPE CODE TESTS RESULT OUT OF REFERENCE UNITS RANGE LAB L501.080 70-110 mg/dL High BEDSIDE GLU 128 Result Comment: MANAGEMENT OF PATIENT CARE PER NURSING PROTOCOL Performed By: #### L501.080 #### [facility] Point of Care [address] [place] [address] DISCHARGE INSTRUCTION Observed: 11/05/2018 Status: F Source: [place] 4:45 PM [facility] REPOSITORY [facility] Medical Records Department [address] [place] [address] Instructions for Home/Discharge Instructions 11/05/18 1644 MR#: [id number] Acct: [id number] Name: JANETT VUONG Rep #: [id number] : 1950 68 From: Ross Ochoa MD PCP: Sampson De La Vega MD Status: REG [facility] Discharge Diet: Light diet - advance as [...] an appointment. Proposed Discharge Date: 11/06/18 11/05/18 8147 <Electronically signed by Ross Ochoa MD> Date Ross Ochoa MD CC: Sampson De La Vega MD Signed OPERATIVE REPORT Observed: 11/05/2018 Status: F Source: [place] 4:42 PM [facility] REPOSITORY [facility] Medical Records Department [address] [place] [address] Operative Report 11/05/18 1639 MR#: [id number] Acct: [id number] Name: JANETT VUONG Rep #: [id number] : 1950 68 From: Ross Ochoa MD PCP: Sampson De La Vega MD Status: REG [facility] Y Location: [place] [address] Report of Operation Date of Procedure: 11/05/18 [...] went into the bladder with a 24 Malagasy noncontinuous flow resectoscope inspected the entire bladder [...] PACU good condition we put a 22 Malagasy catheter into the bladder continues bladder irrigation [...] 11/05/2018 Status: F Source: [place] 2:35 PM [facility] REPOSITORY Patient: JANETT VUONG : 1950 (68/M) Acct Num: [id number] Phys: Don PACE,Ross Acuña Unit Num: [id number] Loc: [facility] Specimen: [id number] Received: 11/06/18700 Spec Type: TURB [...] summary is in compliance with [employer] [employer] (CAP) Cancer Protocols Checklist and [place] Joint Committee on Cancer (AJCC), Staging Manual, [...] two cassettes. / SJ:kristine 11/06/18 TC:0 CPT: 79430, 16292 HEADER OPERATION: Cysto, TUR bladder, Olympus, TUR [...] on file> Performed By: #### PBLB #### [facility] [address] [place], [address] BEDSIDE GLUCOSE Collected: 11/05/2018 Status: F Source: [place] 12:28 PM [facility] REPOSITORY TYPE CODE TESTS RESULT OUT OF REFERENCE UNITS RANGE LAB L501.080 70-110 mg/dL High BEDSIDE GLU 137 Result Comment: MANAGEMENT OF PATIENT CARE PER NURSING PROTOCOL Performed By: #### L501.080 #### [facility] Point of Care [address] [place] [address] 12 LEAD ELECTROCARDIOGRAM Observed: 10/28/2018 Status: F Source: [place] 9:42 AM [facility] REPOSITORY [facility] Cardiovascular Services [address] [place] [address] EKG - [facility] 10/27/18 1109 MR#: [id number] Acct: [id number] Name: JANETT VUONG Rep #: [id number] : 1950 68 From: Xavi Brody MD Attending Dr: Ross Ochoa MD Status: PRE [facility] Ordering Dr: Js Barrios MD Date: 10/27/18 Location: [facility] Sex: M C Admitted: Test Reason : [...] ECG Confirmed by XAVI BRODY MD ([id number]), assignment desk editor DESTINI GAVIRIA ([id number]) on 10/28/2018 9:41:34 AM Referred By: Ross Ochoa Confirmed By:XAVI BRODY MD 10/28/18 0941 Date Xavi Brody MD CC: Js Barrios MD; Sampson De La Vega MD; Ross Ochoa MD Date Dictated: 10/27/181108 Date Transcribed: 10/27/181108 Face Burler: Signed PACEMAKER CHECK Observed: 09/25/2018 Status: F Source: [place] 9:22 AM [facility] REPOSITORY [facility] [place] [address] Pacemaker Check Date of Service: 09/23/18 1537 MR#: [id number] Acct: [id number] Name: JANETT VUONG Rep #: [id number] : 1950 From: Nalini Moncada Age/Sex: 68/M Location: [facility] Status: Signed Comments Summary Comments: Written and [...] F Source: [place] NO DIFF 10:08 AM [facility] REPOSITORY TYPE CODE TESTS RESULT OUT OF [...] MPV 9.7 Performed By: #### L100.0500 #### [facility] [address] [place], [address] BASIC METABOLIC Collected: 09/23/2018 Status: F Source: [place] PROFILE (BMP) 10:08 AM [facility] REPOSITORY TYPE CODE TESTS RESULT OUT OF [...] GAP 5 Performed By: #### L500.2500 #### [facility] [address] [place], [address] CARDIOLOGY VISIT Observed: 09/18/2018 Status: F Source: [place] REPORT 7:31 AM [facility] REPOSITORY [facility] 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 3. Atherosclerosis of [place] coronary artery of [place] heart without angina pectoris I25.10 S/P PTCA [...] syncope R55 Essential hypertension I10 Atherosclerosis of [place] coronary artery of [place] heart without angina pectoris I25.10 Coding Level of Care Code Off vis,est,level 4 Diagnoses Near syncope R55 Essential hypertension I10 Atherosclerosis of [place] coronary artery of [place] heart without angina pectoris I25.10 09/17/18 1409 <Electronically signed by Juliet M Enrique PA> Date Juliet MAHAJAN 09/18/18 0731<Electronically signed by Xavi Brody MD> Cosigner Signature: Date (if applicable) Xavi Brody MD CC: Sampson De La Vega MD KIDNEY AND BLADDER Observed: 09/09/2018 Status: F Source: [place] 9:12 AM [facility] REPOSITORY [facility] Imaging Services [address] [place] [address] Kidney and Bladder MR#: [id number] Acct: [id number] Name: JANETT VUONG Rep #: [id number] : 1950 [facility] From: Steve Guevara MD PCP: Sampson De La Vega MD Status: REG CLI Study: Kidney and Bladder Date of Exam: 09/09/18 Exam# [id number] Ordering Dr: Sampson De La Vega MD [...] , CC: Sampson De La Vega MD Face Burler: Signed HEMOGLOBIN A1C Collected: 08/18/2018 Status: F Source: [place] 1:49 PM [facility] REPOSITORY Order Comment: PLEASE ADD A1C TO BLOOD WORK DONE 08/15/18 PER TYPE CODE TESTS RESULT OUT OF RANGE REFERENCE UNITS LAB L501.9985 4.2-6.3 % High HGB A1C 6.9 Performed By: #### L501.9985 #### [facility] [address] [place], [address] URINALYSIS, COMPLETE Collected: 08/18/2018 Status: F Source: [place] 12:00 AM [facility] REPOSITORY Order Comment: How was Urine Obtained? [...] URINE SEEN Performed By: #### L400.0001 #### [facility] [address] [place], [place], [address] CBC W/DIFF, AUTOMATED Collected: 08/15/2018 Status: F Source: [place] 1:49 PM [facility] REPOSITORY TYPE CODE TESTS RESULT OUT OF [...] Lymph 1.66 Performed By: #### L100.0100 #### [facility] [address] [place], [address] COMPREHENSIVE METABOLIC Collected: 08/15/2018 Status: F Source: [facility] 1:49 PM [facility] REPOSITORY TYPE CODE TESTS RESULT OUT OF [...] By: #### L500.4050, L500.4100, L501.9520, L501.9910 #### [facility] [address] [place], [place], [address] LIPID PROFILE Collected: 08/15/2018 Status: F Source: [place] 1:49 PM [facility] REPOSITORY TYPE CODE TESTS RESULT OUT OF [...] By: #### L500.4050, L500.4100, L501.9520, L501.9910 #### [facility] [address] [place], [address] THYROID STIM HORMONE Collected: 08/15/2018 Status: F Source: [place] (TSH) 1:49 PM [facility] REPOSITORY TYPE CODE TESTS RESULT OUT OF RANGE REFERENCE UNITS LAB L501.9520 0.358-3.74 uIU/mL Normal TSH 1.29 Performed By: #### L500.4050, L500.4100, L501.9520, L501.9910 #### [facility] [address] [place], [address] PSA,TOTAL - ANNUAL Collected: 08/15/2018 Status: F Source: [place] SCREEN 1:49 PM [facility] REPOSITORY TYPE CODE TESTS RESULT OUT OF RANGE REFERENCE UNITS LAB L501.9910 0.00-4.00 ng/mL Normal PSA,TOT 0.53 SCREEN Result Comment: This test was performed using the TPSA assay method for the [employer] chemistry system. Values obtained with different assay methods cannot be used interchangably. When changing PSA assays in the course of monitoring a patient, additional sequential testing should be carried out to confirm baseline values. Performed By: #### L500.4050, L500.4100, L501.9520, L501.9910 #### [facility] [address] [place], [place], [address] VITAMIN D,25 HYDROXY Collected: 08/15/2018 Status: F Source: [place] 1:49 PM [facility] REPOSITORY TYPE CODE TESTS RESULT OUT OF RANGE REFERENCE UNITS LAB L506.1000 29.95-100.01 ng/mL Normal Vitamin D 31.6 25-OH Result Comment: Vitamin D 25(OH) Status Range Deficiency <20 ng/mL (50nmol/L) Insuffciency 20 - 30 ng/mL (50 - 75 nmol/L) Sufficiency 30 - 100 ng/mL (75 - 250 nmol/L) Toxicity >100 ng/mL (>250 nmol/L) Performed By: #### L506.1000 #### [facility] [address] [place], [address] CAROTID DUPLEX Observed: 08/13/2018 Status: F Source: [place] ULTRASOUND 8:28 AM [facility] REPOSITORY [facility] Cardiovascular Services [address] [place] [address] Carotid Duplex Ultrasound 08/11/18 0936 MR#: [id number] Acct: [id number] Name: JANETT VUONG Rep #: [id number] : 1950 68 From: Kenny Watkins MD [...] the left vertebral artery. Procedure Carotid Duplex 35516. Exam performed in department. Interpretation Summary Mild [...] DOCTOR Date Dictated: 08/11/1836 Date Transcribed: 08/13/18826 Face Burler: Signed CARDIOLOGY VISIT Observed: 08/05/2018 Status: F Source: [place] REPORT 11:30 AM [facility] REPOSITORY [facility] [address] [facility] [place] [address] OFFICE VISIT Date of Service: 08/04/18 MR#: [id number] Acct: [id number] Name: JANETT VUONG Rep #: [id number] : 1950 Provider: Juliet Enrique Age/Sex: 68/M Location: [facility] Status: Signed HPI HPI Chief Complaint: Follow [...] related to dizziness. He was transferred to [facility] where he was noted to [...] Pressure Location Lt brachial Intake Visit Reasons: [facility] ER 10-7, trans to [facility], [place] 10- Allergies atorvastatin [From Lipitor] Allergy (Severe, [...] Medical History Essential hypertension (Chronic) Atherosclerosis of [place] coronary artery of upper [place] heart without angina pectoris (Chronic) Hyperlipidemia (Chronic) [...] 2009. Assessment AND Plan 1. Atherosclerosis of [place] coronary artery of [place] heart without angina pectoris I25.10 S/P PTCA [...] 96. 3. Near syncope R55 Plan - KESYHAWN Orta With patient's concerns over near-syncope and [...] Code Off vis,est,level 4 Diagnoses Atherosclerosis of [place] coronary artery of [place] heart without angina pectoris I25.10 Pure hypercholesterolemia E78.00; E78.0 Hyperlipidemia type: pure hypercholesterolemia Near syncope R55 Dizziness R42 Coding Level of Care Code Off vis,est,level 4 Diagnoses Atherosclerosis of [place] coronary artery of [place] heart without angina pectoris I25.10 Pure hypercholesterolemia E78.00; E78.0 Hyperlipidemia type: pure hypercholesterolemia Near syncope R55 Dizziness R42 08/04/18 1131 <Electronically signed by Juliet MAHAJAN> Date Juliet MAHAJAN 08/05/18 1130<Electronically signed by Xavi Brody MD> Cosigner Signature: Date (if applicable) Xavi Brody MD CC: CNDS Observed: 07/30/2018 Status: COMPLETED Source: [place] 12:21 PM [facility] REPOSITORY O ID: [id number] Author: Arthur Menchaca Service: Trauma Author Type: [...] in the ED as a transfer from [facility] as a Level III trauma consult on [...] Recommended follow-ups include with patient's PCP and railway engineer given syncopal episode. OTHER PROBLEMS/DIAGNOSIS: Active Problems: [...] you become constipated, you may use any rukh-xvg-vnnigac treatment such as Milk of Magnesia, Sennakot, Prune Juice, Suppositories, etc. in addition to the stool softener/fiber supplement No alcohol or driving while on pain medication Use acetaminophen (Tylenol) as recommended on the bottle Use the dispensed medication (see prescription) You should use an kpsc-hyk-pzvacnv stool softener (Docusate sodium) and/or a fiber [...] to call for appointment?: Yes Roland Farah [phone] [facility] [address] [facility] [place] [address] Follow-Up Appointment Please contact your railway engineer and schedule an appointment to discuss your recent hospitalization and dizziness. With: Caridologist When: In 1 week Patient/Parents to call for appointment?: Yes Additional Provider to Provider Information: No notes on file Transitions of Care Critical Issues: Discharge home with self care LABS AND PROCEDURES PENDING AT DISCHARGE: No pending results. FOLLOW-UP APPOINTMENTS ALREADY SCHEDULED WITH A [facility] PROVIDER: No future appointments. ALLERGIES No [...] CASE MANAGEM Observed: 07/30/2018 Status: COMPLETED Source: [place] 9:20 AM CL[facility] OTHER CAMPUS REPOSITORY O ID: [id number] Author: Spenser Sandoval (Sw) Service: Care Management Author Type: Head And Neck Surgeon Type: Care Mgt Progress Note Filed: 07/30/2018 [...] at this time. 15 MIn SIGNATURE: MARÍA Kvoacs PATIENT NAME: Janett Vuong DATE: July 30, 2018 TIME: 9:21 AM PAGER/CONTACT #: [phone] CHEST 2 VIEWS Observed: 07/30/2018 Status: F Source: [facility] 8:18 AM HEALTH SYSTEM REPOSITORY Performed at [facility] APPROVED BY: Emery Reddy MD EXAMINATION: CHEST RADIOGRAPH (2 VIEW FRONTAL & LATERAL) CLINICAL HISTORY: Status post fall. Rib fractures. Hemoptysis. MQ: XC2_5 Comparison: 08/07/2018 RESULT: Lines, tubes, and devices: Overlying teletypesetter monitor leads. Lungs and pleura: Small right-sided pleural effusion. Stable. Probable atelectasis at the left lung base. Stable. No pneumothorax. Cardiomediastinal silhouette: Normal cardiomediastinal silhouette. Other: Left-sided rib fractures involving the left eighth and ninth ribs at least. IMPRESSION: Stable right-sided pleural effusion. Stable diminished aeration left lung base most likely atelectasis. Left-sided rib fractures. PROGRESS Observed: 07/30/2018 Status: COMPLETED Source: [place] 8:01 AM CLINIC OTHER CAMPUS REPOSITORY O ID: [id number] Author: Vadim Richter (Pa) Service: Trauma Author Type: Physician Story Analyst Type: Progress Notes Filed: 07/30/2018 8:07 AM [...] 0659 07/30/18 07 - 07/31/18 0659 Shift 9487-4470 5918-4174 0434-0559 24 Hour Total 3608-2974 2128-7508 8968-6376 24 Hour Total I N T A K E PO 360 031 762 4014 PO 360 532 331 1278 Shift Total 360 494 841 8145 O U T P U T Urine [...] questions or concerns Mon-Fri 6a-5p please page [phone]. After 5pm and on Weekends and Holidays, please page [phone] if in ICU or [phone] if on RNF. SIGNATURE: Vadim Richter PA-C PATIENT NAME: Janett Vuong DATE: July 30, 2018 TIME: 8:06 AM Pager: [phone] MDRD GFR Collected: 07/30/2018 Status: F Source: [facility] 4:16 AM HEALTH SYSTEM REPOSITORY TYPE CODE TESTS RESULT OUT OF RANGE REFERENCE UNITS LAB GFRFN(LOINC >60mL/min/1.73m ) 2 eGFR >60 Result Comment: If the patient is , multiply the result by 1.210. Performed By: #### GFR #### [facility] [address] [place] [address] IONIZED CALCIUM Collected: 07/30/2018 Status: F Source: [facility] 4:16 AM HEALTH SYSTEM REPOSITORY TYPE CODE TESTS RESULT OUT OF REFERENCE UNITS RANGE LAB CAION(LOINC 4.43-4.93 mg/dL ) Ionized 4.57 Calcium LAB PHCAI(LOINC 7.320-7.420 ) pH 7.375 LAB CAPH(LOINC) 4.36-4.73 mg/dL Ionized 4.51 Ca,PH7.4 Performed By: #### IONCA #### [facility] [address] [place], [place] [address] HEMOGRAM/DIFF Collected: 07/30/2018 Status: F Source: [facility] 4:16 AM HEALTH SYSTEM REPOSITORY TYPE [...] 0.99 LAB MONON(LOIN 0.30-0.82 thou/cmm C) Abs. [place] 0.73 LAB EOSN(LOINC 0.04-0.54 thou/cmm ) Abs. Eosin 0.25 LAB BASON(LOIN 0.01-0.08 thou/cmm C) Abs. Baso 0.02 Performed By: #### CBCD1 #### [facility] [address] [place] [address] BASIC PANEL Collected: 07/30/2018 Status: F Source: [facility] 4:16 AM HEALTH SYSTEM REPOSITORY TYPE [...] Gap 9 Performed By: #### P8 #### [place] [address] THERAPY NT Observed: 07/29/2018 Status: COMPLETED Source: [place] 4:50 PM CLINIC OTHER CAMPUS REPOSITORY HNO ID: [id number] Author: Jason (PtJason Cervantes Service: Physical Therapy Author Type: Physical Therapist Type: Therapy (PT/OT/Speech/Resp) Filed: 07/29/2018 5:29 PM Note Text: Physical Therapy Evaluation SERVICE DATE: 07/29/2018 SERVICE TIME: 1607 to 1625 ROOM: [id number] Recommended Discharge Disposition: Home Anticipated Discharge Needs: [...] Diagnosis: Reduced mobility-other Interventions Provided: Evaluation;Therapeutic Activity (69127) $ Evaluation-Low (01540) Billed Units: 1 unit Therapeutic Activity (13211) Treatment Minutes: 5 0 units Skilled Intervention(s): Education with disease process, modifying transfers/mobility to decrease risk of sudden near- and syncope, consulting railway engineer for possible contributions to recent syncopal and [...] Current Hospital Course: Chart reviewed; Transfer from [facility]. GCS at Scene was 15. 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 OBJECTIVE: Range of Motion: ROM Limitation Comments [...] THERAPY NT Observed: 07/29/2018 Status: COMPLETED Source: [place] 3:11 PM CLINIC OTHER CAMPUS REPOSITORY HNO ID: [id number] Author: Jie Dailey/Roland Sharma Service: Occupational Therapy Author Type: Occupational Therapist Type: Therapy (PT/OT/Speech/Resp) Filed: 07/29/2018 4:45 PM Note Text: Occupational Therapy Evaluation SERVICE DATE: 07/29/2018 SERVICE TIME: 9160 to 4805 ROOM: [id number] Recommended Discharge Disposition: Home Recommended Discharge Disposition [...] comorbidities present to affect patient's occupational performance: AR Patient Disposition at Start of Session: Supine [...] Therapy Diagnosis: Reduced mobility-other Interventions Provided: Evaluation;Self Halfway Management (49688) $ Evaluation-Low (55808) Billed Units: 1 unit Self Halfway Management (84401) Treatment Minutes: 5 0 units Skilled Intervention(s): [...] Progressive mobility protocol Relevant Past Medical History: AR, HTN Patient Report: Patient reports he is doing well, just has pain. Patient ready to return home with no concerns. 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 OBJECTIVE: Responsiveness: Alert;Awake Follows Commands: 2-step Commands [...] PM CLINIC OTHER CAMPUS REPOSITORY HNO ID: [id number] Author: Darcy (Rn) MARCE Dickey Service: Care Management Author Type: Registered Nurse Type: Care Mgt Initial Assessment Filed: 07/29/2018 3:06 PM Note Text: CARE MANAGEMENT: ASSESSMENT AND DISCHARGE PLAN SERVICE DATE: 07/29/2018 SERVICE TIME: 3:04 PM PRIMARY CARE PHYSICIAN: Roland Farah MD ADMISSION STATUS: Inpatient Needs Prior to Discharge: To Be Determined 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 No Advance Directive: Current Advance Directive: None Slot Floor Attendant Attempted to Assist with AD Completion: Yes [...] None Has the Patient Been in a [facility] Facility in the Past 30 days? No [...] 0 I feel financially burdened by my kyh-de-hewhrq expenses for my prescription medication: Disagree completely [...] 29, 2018 TIME: 3:04 PM PAGER/CONTACT #: [phone] CONSULT PROG Observed: 07/29/2018 Status: COMPLETED Source: [place] 2:22 PM CLINIC OTHER CAMPUS REPOSITORY HNO ID: [id number] Author: Chrystal Gonzalez Service: Hospital Medicine Author Type: Physician Type: Consult Progress Note Filed: 07/29/2018 2:32 PM Note Text: DEPARTMENT OF HOSPITAL MEDICINE PROGRESS NOTE SERVICE DATE: 07/29/2018 SERVICE TIME: 2:22 PM Hospital Medicine/Primary Attending: Chrystal Gonzalez MD NIGHT AND WEEKEND COVERAGE: After 7pm, please call cross cover pager #[phone] Subjective CC/Follow up for Medical management INTERVAL HPI: no acute events overnight Pt reported L side chest pain with cough and deep breathing, no other complaints Pt endorsed having episodes of dizziness before and he refused event monitor due to cost. He follows with railway engineer and he already talked to him about [...] and presyncope - pt follows with his railway engineer, refused event monitor previously due to cost [...] #: PROGRESS Observed: 07/29/2018 Status: COMPLETED Source: [place] 1:53 PM CLINIC OTHER CAMPUS REPOSITORY HNO ID: [id number] Author: Vadim Richter (Pa) Service: Trauma Author Type: Physician Story Analyst Type: Progress Notes Filed: 07/29/2018 2:07 PM [...] 0659 07/29/18 07 - 07/30/18 0659 Shift 9192-5756 0554-0110 8267-5457 24 Hour Total 9081-1927 7907-4149 8473-6279 24 Hour Total I N T A K E PO 403 441 8119 120 120 PO 009 359 8029 120 120 IV 345 345 IVPB 250 250 LR 95 95 Shift Total 2692 137 9490 120 120 O U T P U T Urine 493 795 6772 Void (ml) 841 325 8880 Shift Total 297 692 0429 Weight (kg) 86.8 86.8 81.6 81.6 81.6 [...] July 29, 2018 TIME: 2:06 PM Pager: [phone] HEMOGRAM/DIFF Collected: 07/29/2018 Status: F Source: [facility] 3:55 AM HEALTH SYSTEM REPOSITORY TYPE [...] LAB MONON(LOIN 0.30-0.82 thou/cmm C) Abs. High [place] 0.95 LAB EOSN(LOINC 0.04-0.54 thou/cmm ) Abs. Eosin 0.12 LAB BASON(LOIN 0.01-0.08 thou/cmm C) Abs. Baso 0.02 Performed By: #### CBCD1 #### [facility] [address] [id number] IONIZED CALCIUM Collected: 07/29/2018 Status: F Source: [facility] 3:55 AM HEALTH SYSTEM REPOSITORY TYPE CODE TESTS RESULT OUT OF REFERENCE UNITS RANGE LAB CAION(LOINC 4.43-4.93 mg/dL ) Ionized 4.69 Calcium LAB PHCAI(LOINC 7.320-7.420 ) pH 7.377 LAB CAPH(LOINC) 4.36-4.73 mg/dL Ionized 4.64 Ca,PH7.4 Performed By: #### IONCA #### [place] [address] BASIC PANEL Collected: 07/29/2018 Status: F Source: [facility] 3:55 AM HEALTH SYSTEM REPOSITORY TYPE [...] Gap 10 Performed By: #### P8 #### [place] [address] PHOSPHORUS BLOOD Collected: 07/29/2018 Status: F Source: [facility] 3:55 AM HEALTH SYSTEM REPOSITORY TYPE CODE TESTS RESULT OUT OF REFERENCE UNITS RANGE LAB PHOS(LOINC 2.5-4.9 mg/dL ) Phosphorus Blood 3.8 Performed By: #### PHOS #### [place] [address] MAGNESIUM BLOOD Collected: 07/29/2018 Status: F Source: [facility] 3:55 AM [facility] REPOSITORY TYPE CODE TESTS RESULT OUT OF REFERENCE UNITS RANGE LAB MAG(LOINC) 1.6-2.6 mg/dL Magnesium Blood 2.1 Performed By: #### MAG #### [place] [address] HGB A1C Collected: 07/29/2018 Status: F Source: [facility] 3:55 AM HEALTH SYSTEM REPOSITORY TYPE CODE TESTS RESULT OUT OF RANGE REFERENCE UNITS LAB A1C5(LOINC) 4.2-6.3 % High Hgb A1c 6.6 Result Comment: Method is National Glycohemoglobin Standardization Program (NGSP) compliant. LAB ESAVG(LOINC) mg/dl Est. Avg Glucose 143 Performed By: #### HA1C #### [facility] [address] [address] CONSULT Observed: 07/28/2018 Status: COMPLETED Source: [place] 9:46 PM CLINIC OTHER CAMPUS REPOSITORY HNO ID: [id number] Author: Marlin Gagnon Service: Hospital Medicine Author Type: Physician Type: Consults Filed: 07/28/2018 10:17 PM Note Text: DEPARTMENT OF HOSPITAL MEDICINE INITIAL CONSULT SERVICE DATE: 07/28/2018 SERVICE TIME: 9:46 PM Primary Care Physician: Roland Farah MD NIGHT AND WEEKEND COVERAGE: After 7pm, please call cross cover pager #[phone] REASON FOR CONSULT: dizziness REQUESTING PHYSICIAN: Dr Alondra Ortega Subjective CHIEF COMPLAINT: Fall HPI: 68 year old male with hx tobacco abuse, COPD and Cad for which he follows at [facility] presents with a fall at home. Patient [...] these episodes occur. He reports seeing his railway engineer yearly in [facility] but always refuses echo due to cost. [...] LEAD ELECTROCARDIOGRAM Observed: 07/28/2018 Status: F Source: [facility] 2:11 PM [facility] REPOSITORY [facility] Cardiovascular Services [address] [place] [address] 12 Lead EKG 07/27/18 0508 MR#: [id number] Acct: [id number] Name: JANETT VUONG Rep #: [id number] : 1950 68 From: Xavi Brody MD [...] ECG Confirmed by XAVI BRODY MD ([id number]), assignment desk editor DESTINI GAVIRIA ([id number]) on 07/28/2018 2:11:07 PM Referred By: Xavi Brody Confirmed By:XAVI BRODY MD 07/28/18 1411 Date Xavi Brody MD CC: No Primary Care Physician; Zaki Smith MD Signed PLAN OF CARE Observed: 07/28/2018 Status: COMPLETED Source: [place] 1:02 PM [facility] REPOSITORY HNO ID: [id number] Author: Flako Stephens (Supervisor Carpenters) Service: Pharmacy Author Type: Pharmacist Type: Plan of Care Filed: 07/28/2018 1:04 PM Note Text: MEDICATION HISTORY AND MEDICATION RECONCILIATION Patient Name:Galen Vuong : 1950 Source of history:Patient: Reliability of source: Appears reliable, clearly identified: Medication name, Medication dose, Medication route and Medication frequency and Pharmacy records: [facility] [phone] from [facility] Medication Nonadherence Identified: No barriers noted The above information represents the best possible medication history: Yes Reconciliation completed? Yes All INFORMATION ASSISTANT medications addressed by LIP Additional comments: ? Medications removed - Flonase, amoxicillin (both course of therapy complete) Allergies: ALLERGIES No Known Allergies Preferred Pharmacy: [facility] [phone] Current INFORMATION ASSISTANT Medications: Prior to Admission medications as of [...] tablet daily. Yes Flako Stephens, PharmD PGY1 Supervisor [employer] [phone] Page: [phone] July 28, 2018 1:02 PM PROGRESS Observed: 07/28/2018 Status: COMPLETED Source: [place] 6:34 AM [facility] REPOSITORY HNO ID: [id number] Author: Arthur Menchaca Service: General Surgery Author [...] - 07/28/1859 07/28/18699 - 07/29/18 0659 Shift 1575-7288 6811-8446 2698-7063 24 Hour Total 3685-7322 4368-7279 4852-7717 24 Hour Total I N T A K E PO 355 239 6026 PO 957 690 6964 IV 279 257.7 536.7 LR 279 257.7 536.7 Shift Total 879 729.7 1608.7 O U T P U T Urine 280 096 4930 Void (ml) 925 565 1037 Shift Total 596 333 2507 Weight (kg) 83 82.7 86.8 86.8 86.8 [...] July 28, 2018 TIME: 6:34 AM PAGER: [phone] CHEST 1 VIEW Observed: 07/28/2018 Status: F Source: [facility] 6:28 AM HEALTH SYSTEM REPOSITORY Performed at [facility] APPROVED BY: Emery Reddy MD EXAM [...] bases. PROGRESS Observed: 07/28/2018 Status: COMPLETED Source: [place] 6:21 AM CLINIC OTHER CAMPUS REPOSITORY O ID: [id number] Author: Josiah Herrera Service: ADT-SICU Author Type: [...] - 07/28/1859 07/28/18699 - 07/29/18 0659 Shift 5219-6726 5786-0381 2269-8373 24 Hour Total 3432-2866 4750-2643 1124-1542 24 Hour Total I N T A K E PO 599 925 9743 PO 215 106 4776 IV 279 257.7 536.7 LR 279 257.7 536.7 Shift Total 879 729.7 1608.7 O U T P U T Urine 249 247 9669 Void (ml) 216 140 8701 Shift Total 696 526 1237 Weight (kg) 83 82.7 86.8 86.8 86.8 [...] July 28, 2018 TIME: 6:21 AM PAGER: [phone] Awake and alert Repeat CXR shows no [...] IONIZED CALCIUM Collected: 07/28/2018 Status: F Source: [facility] 4:00 HEALTH SYSTEM REPOSITORY TYPE CODE TESTS RESULT OUT OF REFERENCE UNITS RANGE LAB CAION(LOINC 4.43-4.93 mg/dL ) Ionized 4.57 Calcium LAB PHCAI(LOINC 7.320-7.420 ) pH 7.374 LAB CAPH(LOINC) 4.36-4.73 mg/dL Ionized 4.51 Ca,PH7.4 Performed By: #### IONCA #### [facility] [address] [address] HEMOGRAM/DIFF Collected: 07/28/2018 Status: F Source: [facility] 4:00 HEALTH SYSTEM REPOSITORY TYPE CODE [...] LAB MONON(LOIN 0.30-0.82 thou/cmm C) Abs. High [place] 0.98 LAB EOSN(LOINC 0.04-0.54 thou/cmm ) Abs. Eosin 0.34 LAB BASON(LOIN 0.01-0.08 thou/cmm C) Abs. Baso 0.02 Performed By: #### CBCD1 #### [place] [address] BASIC PANEL Collected: 07/28/2018 Status: F Source: [facility] 4:00 AM HEALTH SYSTEM REPOSITORY TYPE [...] Gap 9 Performed By: #### P8 #### [place] [id number] PHOSPHORUS BLOOD Collected: 07/28/2018 Status: F Source: [facility] 4:00 AM HEALTH SYSTEM REPOSITORY TYPE CODE TESTS RESULT OUT OF REFERENCE UNITS RANGE LAB PHOS(LOINC 2.5-4.9 mg/dL ) Phosphorus Blood 2.8 Performed By: #### PHOS #### [facility] [address] [place] [address] MAGNESIUM BLOOD Collected: 07/28/2018 Status: F Source: [facility] 4:00 AM HEALTH SYSTEM REPOSITORY TYPE CODE TESTS RESULT OUT OF REFERENCE UNITS RANGE LAB MAG(LOINC) 1.6-2.6 mg/dL Magnesium Blood 2.1 Performed By: #### MAG #### [facility] [address] [address] Observed: 07/27/2018 Status: F Source: [facility] MRSA SCREEN 2:45 PM HEALTH SYSTEM REPOSITORY Test performed at [facility] No MRSA detected. Performed By: #### MRSA #### [facility] [address] [place] [address] TOTAL 25-OH VITAMIN Collected: 07/27/2018 Status: F Source: [facility] D 2:30 PM HEALTH SYSTEM REPOSITORY TYPE CODE TESTS RESULT OUT OF REFERENCE UNITS RANGE LAB 25VD1(LOINC 30.0-100.0 ng/mL ) Low Total 25-OH 28.6 Vitamin D Performed By: #### 25VD1 #### [facility] [address] [place] [address] CONSULT Observed: 07/27/2018 Status: COMPLETED Source: [place] 1:13 PM CLINIC OTHER CAMPUS REPOSITORY O ID: [id number] Author: Josiah Herrera Service: ADT-SICU Author Type: Physician Type: Consults Filed: 07/28/2018 9:56 AM Note Text: []Hide copied text SICU Consult Note ? ARRIVAL DATE: 07/27/2018 ARRIVAL TIME: 09 ? CATEGORY: Level 3 ? INJURY DATE: 07/26/18 INJURY TIME: evening ? ? Subjective This is a 68 year old White male- Transfer from [facility]. GCS at Scene was 15. Patient presents [...] ? PRIOR TO ARRIVAL: Imaging obtained in [facility] prior to arrival ? IMAGES CT H/N/C/A/P [...] PROV NOTE Observed: 07/27/2018 Status: COMPLETED Source: [place] 10:52 AM [facility] OTHER CAMPUS REPOSITORY O ID: [id number] Author: Jagruti Dominguez DO Service: Emergency Medicine [...] the emergency department as a transfer from [facility] for trauma evaluation. Around 10 PM [...] HISTORY PHYSICAL Observed: 07/27/2018 Status: COMPLETED Source: [place] 10:32 AM [facility] OTHER CAMPUS REPOSITORY O ID: [id number] Author: Zunilda Holloway Service: Trauma Author Type: [...] Date: 07/7018 Time: 2:11 PM [facility] ARRIVAL DATE: 07/27/2018 ARRIVAL TIME: 0915 CATEGORY: Level 3 INJURY DATE: 07/26/18 INJURY TIME: evening Subjective This is a 68 year old White male- Transfer from [facility]. GCS at Scene was 15. Patient presents [...] H/N/C/A/P PRIOR TO ARRIVAL: Imaging obtained in [facility] prior to arrival IMAGES CT H/N/C/A/P CT [...] #: EKG Observed: 07/27/2018 Status: F Source: [place] 9:55 AM [facility] OTHER CAMPUS REPOSITORY NAME : JANETT VUONG PID : [id number] : 1950 Gender : Male Race : [...] ms QTC Calculation(Bezet) : 421 ms P Blachly : 72 degrees R Blachly : 9 degrees T Blachly : 35 degrees Test Reason : Location : 4 : [place] [address] Overread By : DO Dominguez [place] Editted By : DO Dominguez [place] Referred By : , Acquired by : Renetta Cash ED PROV NOTE Observed: 07/27/2018 Status: COMPLETED Source: [place] 9:43 AM [facility] OTHER CAMPUS REPOSITORY HNO ID: [id number] Author: Kassidy Eli DO Service: Emergency Medicine [...] Injury: the patient arrives via ems from [facility], fell off a porch last night into an air conditioning unit +dizziness, -loc, has left rib fx 7-10 with left lower lung contusion, on plavix, here for further eval, a/o x3 on arrival, no distress noted 68-year-old male presenting as a trauma consult from [facility] following a fall from his porch [...] male presenting as a trauma consult from [facility] following a fall off his porch [...] ED NOTE Observed: 07/27/2018 Status: COMPLETED Source: [place] 9:33 AM [facility] REPOSITORY HNO ID: [id number] Author: Coco GageRn) MARCE Gaviria Service: Emergency Medicine Author Type: Registered Nurse Type: ED Notes Filed: 07/27/2018 9:33 AM Note Text: Pt placed on teletypesetter monitor, noninvasive blood pressure cuff and continuous pulse oximetry for clinical monitoring ED NOTE Observed: 07/27/2018 Status: COMPLETED Source: [place] 9:15 AM [facility] REPOSITORY HNO ID: [id number] Author: Gurmeet (Medic) Candace Birmingham Service: (none) Author Type: Slot Machine Mechanic and Gear Shaver Set Up Operator Type: ED Notes Filed: 07/27/2018 9:15 AM Note Text: Bed: 10-ED Expected date: 07/27/18 Expected time: 9:10 AM Means of arrival: [facility] Comments: [facility] EMERGENCY DEPARTMENT Observed: 07/27/2018 Status: F Source: [facility] SUMMARY 7:41 AM [facility] REPOSITORY [facility] Medical Records Department [address] [place] [address] Emergency Department Summary 07/27/18 0707 MR#: [id number] Acct: [id number] Name: JANETT VUONG Rep #: [id number] : 1950 68 From: Zaki Smith MD [...] After speaking with the patient, I contacted [facility]. Dr. Ceron accepted the patient to the emergency department. Treatment Plan: As above Disposition: Transfer to [facility] Impression: 1. Left rib fractures 7, 8, 9, and 10 2. left pulmonary contusion This note was generated with [email or web address] software. It may contain incorrect words, [...] your Primary Care Provider. Call [facility] ([phone]) or report to the closest Emergency Room. Call 911 if necessary. 07/27/18 0741 <Electronically signed by Zaki Smith MD> Date Zaki Ureña Signature (If Indicated): Date CC: No Primary Care Physician URINALYSIS, COMPLETE Collected: 07/27/2018 Status: F Source: [facility] 7:05 AM [facility] REPOSITORY Order Comment: How was Urine Obtained? ACCOUNTS PAYABLE REPRESENTATIVE TO SPECIFY TYPE CODE TESTS RESULT OUT [...] URINE SEEN Performed By: #### L400.0001 #### [facility] [address] [place], [place], [id number] CBC W/DIFF, AUTOMATED Collected: 07/27/2018 Status: F Source: [facility] 5:00 AM [facility] REPOSITORY TYPE CODE TESTS RESULT OUT OF [...] Lymph 1.09 Performed By: #### L100.0100 #### [facility] [address] [place], [place], [address] BASIC METABOLIC Collected: 07/27/2018 Status: F Source: [facility] PROFILE ([facility] 5:00 AM [facility] REPOSITORY TYPE CODE TESTS RESULT OUT OF [...] 10 Performed By: #### L500.2500, L501.4010 #### [facility] [address] [facility] [place], [place], [address] TROPONIN-I Collected: 07/27/2018 Status: F Source: [facility] 5:00 AM [facility] REPOSITORY TYPE CODE TESTS RESULT OUT OF RANGE REFERENCE UNITS LAB L501.4010 <0.045 ng/mL Normal < 0.015 TROPONIN-I Result Comment: TROPONIN-I EXPECTED VALUES <0.045 Negative 0.045 - 0.590 Consistent with Cardiac Damage > OR = 0.600 Critical Value Not every elevated troponin is indicative of AR. These values should be used with clinical judgement in examining the patient's clinical picture for diagnosis. To establish a diagnosis of AR versus myocardial injury, there must be a demonstrated rise and/or fall in the troponin values, in addition to ischemic symptoms, EKG changes, new regional wall motion abnormality, and/or angiographical evidence. PLEASE NOTE: REFERENCE RANGES EDITED 18 Performed By: #### L500.2500, L501.4010 #### [facility] [address] [facility] [place], [address] BRAIN/HEAD WITHOUT Observed: 07/27/2018 Status: F Source: [facility] CONTRAST 4:59 AM [facility] REPOSITORY [facility] Imaging Services [address] [place] [address] Brain/Head without Contrast MR#: [id number] Acct: [id number] Name: JANETT VUONG Rep #: [id number] : 1950 M 68 From: Farhan Levine MD PCP: Care Physician, No Primary Status: REG ER Study: Brain/Head without Contrast Date of Exam: 07/27/18 Exam# [id number] Ordering Dr: Zaki Smith MD STUDY: CT [...] No Primary Care Physician; Zaki Smith MD Face Burler: Signed SPINE CERVICAL Observed: 07/27/2018 Status: F Source: [facility] WITHOUT CONTRAS 4:59 AM [facility] REPOSITORY [facility] Imaging Services [address] [place] [address] Spine Cervical without Contras MR#: [id number] Acct: [id number] Name: JANETT VUONG Rep #: [id number] : 1950 M 68 From: Farhan Levine MD PCP: Care Physician, No Primary Status: REG ER Study: Spine Cervical without Contras Date of Exam: 07/27/18 Exam# [id number] Ordering Dr: Zaki Smith MD STUDY: CT [...] No Primary Care Physician; Zaki Smith MD Face Burler: Signed CHEST WITH CONTRAST Observed: 07/27/2018 Status: F Source: [facility] 4:59 AM [facility] REPOSITORY [facility] Imaging Services [address] [place] [address] Chest WITH Contrast MR#: [id number] Acct: [id number] Name: JANETT VUONG Rep #: [id number] : 1950 M 68 From: Farhan Levine MD PCP: Care Physician, No Primary Status: REG ER Study: Chest WITH Contrast Date of Exam: 07/27/18 Exam# [id number] Ordering Dr: Zaki Smith MD STUDY: CT [...] No Primary Care Physician; Zaki Smith MD Face Burler: Signed ABDOMEN/PELVIS W IV CONT Observed: 07/27/2018 Status: F Source: [facility] ONLY 4:59 AM [facility] REPOSITORY [facility] Imaging Services [facility] [place] [address] Abdomen/Pelvis W IV Cont ONLY MR#: [id number] Acct: [id number] Name: JANETT VUONG Rep #: [id number] : 1950 M 68 From: Farhan Levine MD PCP: Care Physician, No Primary Status: REG ER Study: Abdomen/Pelvis W IV Cont ONLY Date of Exam: 07/27/18 Exam# [id number] Ordering Dr: Zaki Smith MD STUDY: CT [...] No Primary Care Physician; Zaki Smith MD Face Burler: Signed CARDIOLOGY VISIT Observed: 07/22/2018 Status: F Source: [facility] REPORT 2:00 [facility] REPOSITORY [facility] 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 2. Atherosclerosis of upper [place] coronary artery of [place] heart without angina pectoris I25.10 S/P PTCA [...] care. Plan Detail Follow Up 1 Year (card maker) Coding Level of Care Code Off vis,est,level 3 Diagnoses Essential hypertension I10 Atherosclerosis of upper [place] coronary artery of [place] heart without angina pectoris I25.10 Hyperlipidemia E78.5 Coding Level of Care Code Off vis,est,level 3 Diagnoses Essential hypertension I10 Atherosclerosis of upper [place] coronary artery of [place] heart without angina pectoris I25.10 Hyperlipidemia E78.5 07/22/18 1400 <Electronically signed by Xavi Brody MD> Date Xavi Brody MD Cosigner Signature: Date (if applicable) CC: No Primary Care Physician LIVER PROFILE Collected: 07/21/2018 Status: F Source: QAMAR 5:44 AM [facility] REPOSITORY TYPE CODE TESTS RESULT OUT OF [...] 0.13 Performed By: #### L500.3400, L500.4100 #### [facility] [address] [place], [address] LIPID PROFILE Collected: 07/21/2018 Status: F Source: QAMAR 5:44 AM [facility] REPOSITORY TYPE CODE TESTS RESULT OUT OF [...] 15 Performed By: #### L500.3400, L500.4100 #### [facility] [address] [place], [place], [address] CARDIOLOGY VISIT Observed: 12/25/2017 Status: F Source: QAMAR REPORT 3:57 PM [facility] REPOSITORY [facility] [address] [place] [address] OFFICE VISIT Date of Service: 12/25/17 MR#: [id number] Acct: [id number] Name: JANETT VUONG Rep #: [id number] : 1950 Provider: ALICIA Jimenez Age/Sex: 67/M [place] [facility] Status: Signed HPI HPI Details: JANETT [...] brachial Intake Visit Reasons: 6 M FU Harp Action Assembler Required: No Accompanied by: None Is patient [...] PFSH Medical History Hypertension (Chronic) Atherosclerosis of upper [place] coronary artery of upper [place] heart without angina pectoris (Chronic) Hyperlipidemia (Chronic) [...] fraction. Assessment AND Plan 1. Atherosclerosis of upper [place] coronary artery of upper [place] heart without angina pectoris I25.10 S/P PTCA [...] prior to saving. Follow Up 6 Months (RN POSTPARTUM) Coding Level of Care Code Off vis,est,level 3 Diagnoses Atherosclerosis of upper [place] coronary artery of upper [place] heart without angina pectoris I25.10 Essential hypertension I10 Hypertension type: essential hypertension Mixed hyperlipidemia E78.2 Hyperlipidemia type: mixed hyperlipidemia Coding Level of Care Code Off vis,est,level 3 Diagnoses Atherosclerosis of upper [place] coronary artery of upper [place] heart without angina pectoris I25.10 Essential hypertension [...] REACTION SEVERITY SOURCE 11/06/2018 Drug simvastatin/F006 Hives [facility] Allergy/416 031853(RXNORM) Hospital 505198(SNOM Repository ED CT) 11/06/2018 Drug atorvastatin/F00 MUSCLE ACHES [facility] Allergy/798 5556772(RXNORM) Hospital 979388(SNOM Repository ED CT) Drug NO KNOWN [facility] Class/09456 ALLERGIES Other [facility] 1003(SNOMED Repository CT) NG/10330998 NO KNOWN [facility] 6(SNOMED [employer] CT) Repository ENCOUNTERS ENCOUNTERS ADMIT/DISCHARGE ACCOUNT NUMBER ADMITTING ENCOUNTER LOCATION SOURCE CLASS 11/06/2018/11/06/19 [id number] Emergency [address] ding:ED Repository 11/05/2018/11/06/19 [id number] Ambulatory [address] ding:SDCRoom Repository : MS305 10/30/2018 [id number] Ambulatory [facility] ding:DC Repository 10/27/2018 [id number] Ambulatory BMSBuilding: [facility] Repository 10/06/2018 [id number] Ambulatory [facility] ding:CLSP Repository 10/06/2018 [id number] Ambulatory BMSBuilding: [facility] Repository 09/23/2018 [id number] Ambulatory [facility] ding:LAB Repository 09/23/2018/09/23/20 [id number] Ambulatory B[facility]Building: [facility] Repository 09/18/2018/09/19/20 [id number] Ambulatory [address] ding:DC Repository 09/17/2018/09/17/20 [id number] Ambulatory BMSBuilding: [place] 18 [facility] Repository 09/09/2018 [id number] Ambulatory [facility] ding:US Repository 08/18/2018 [id number] Ambulatory [facility] Hospital ding:LABSPEC Repository 08/15/2018 [id number] Ambulatory [facility] Hospital ding:MTLAB Repository 08/11/2018 [id number] Ambulatory [facility] Hospital ding:CVS Repository 08/11/2018 [id number] Ambulatory BMSBuilding: [facility] Repository 08/11/2018 [id number] Ambulatory [facility] Hospital ding:CVS Repository 08/04/2018/08/04/20 [id number] Ambulatory BMSBuilding: [place] 18 [facility] Repository 07/27/2018/07/30/20 [id number] ALONDRA ORTEGA Inpatient [facility] 18 Encounter Clinic Other [facility] Repository 07/27/2018/07/30/20 [id number] ALONDRA ORTEGA F Inpatient [facility] 18 Encounter [facility] MEDICAL Repository CENTERBuildi nARoom: 5217Bed: 02 07/27/2018/07/27/20 [id number] Emergency [facility] ding:ED Repository 07/22/2018/07/22/20 [id number] Ambulatory BMSBuilding: [place] 18 BMS.[facility] Repository 07/21/2018 [id number] Ambulatory [facility] ding:LAB Repository 07/17/2018 [id number] Ambulatory [facility]Building: [facility] BMS.[facility] Repository 12/25/2017/12/26/19 [id number] Ambulatory BMSBuilding: [place] 18 BMS.[facility] Repository PAYERS PAYERS ENCOUNTER GUARANTOR PAYER SUBSCRIBER SOURCE 11/06/2018 JANETT T Primary KIMMIE E [facility] [id number] Insurance:ANTHEMPolic BROOKSDOB: [facility] y Number: [id number] [id number] Repository [address]Enw: 330) jayme Date:9383-62-75UQ [phone] () [address] [place] [address] 52886PF: 11/06/2018 Secondary JANETT T [place] Insurance:MEDICARE BROOKSDOB: Community PART A [facility] [id number] [facility] Number: Repository [id number] Date:2018-11-06 11/06/2018 Tertiary NOT GIVENUNK [place] Insurance:SELF PAY [facility] Number: Effective Repository Date:2018-11-06 11/05/2018 JANETT T Primary KIMMIE E [facility] [id number] Insurance:ANTHEMPolic BROOKSDOB: [facility] y Number: [id number], [place] [id number] Repository [address]Yko: (330) jayme Date:9049-54-43US [phone] () [id number] [place] [address] 67133KC: 11/05/2018 Secondary JANETT T [place] Insurance:MEDICARE BROOKSDOB: Community PART A olic [id number] Hospital Number: Repository [id number] Date:2018-09-30 11/05/2018 Tertiary NOT GIVENUNK [place] Insurance:SELF PAY [facility] Number: Effective Repository Date:2018-09-30 10/30/2018 JANETT T Primary KIMMIE E [place] [id number] Insurance:ANTHEMPolic BROOKSDOB: Community [place] y Number: [id number], [place] [id number] Repository [address]Can: 330 jayme Date:2810-22-51RT [phone] () [id number] [place] [address] 39369HU: 10/30/2018 Secondary JANETT T [facility] Insurance:MEDICARE BROOKSDOB: Community PART A [facility] [id number] Hospital Number: Repository [id number] Date:2018-09-08 10/30/2018 Tertiary NOT GIVENUNK [facility] Insurance:SELF PAY [facility] Number: Effective Repository Date:2018-09-20 10/27/2018 JANETT T Primary KIMMIE E [facility] [id number] Insurance:ANTHEMPolic BROOKSDOB: Community DAVEY y Number: [id number], [place] [id number] Repository 210[address]Ylv: 330) jayme Date:4509-63-08FO [phone] () [address] [place] [address] 66325IC: 10/27/2018 Secondary JANETT T [place] Insurance:MEDICARE BROOKSDOB: Community PART A [facility] [id number] Hospital Number: Repository [id number] Date:2018-09-08 10/27/2018 Tertiary NOT GIVENUNK [place] Insurance:SELF PAY [facility] Number: Effective Repository Date:2018-10-27 10/06/2018 JANETT T Primary KIMMIE E [facility] [id number] Insurance:ANTHEMPolic BROOKSDOB: Community [place] y Number: [id number], [place] [id number] Repository 16[address]Mos: (330) jayme Date:3622-06-25EA [phone] () [address], [place] [address]CJ: 10/06/2018 Secondary JANETT T [place] Insurance:MEDICARE BROOKSDOB: Community PART A [facility] [id number] Hospital Number: Repository [id number] Date:2018-09-22 10/06/2018 Tertiary NOT GIVENUNK [facility] Insurance:SELF PAY [facility] Number: Effective Repository Date:2018-09-22 10/06/2018 JANETT T Primary KIMMIE E [place] [id number] Insurance:ANTHEMPolic BROOKSDOB: Community [place] y Number: [id number], [place] [id number] Repository 36[address]Upn: (330) jayme Date:7647-59-90WI [phone] () [address], [place] [address]SQ: 10/06/2018 Secondary JANETT T [place] Insurance:MEDICARE BROOK[place]OB: Community PART A [facility] [id number] Hospital Number: Repository [id number] Date:2018-09-22 10/06/2018 Tertiary NOT GIVENUNK [place] Insurance:SELF PAY [facility] Number: Effective Repository Date:2018-10-06 09/23/2018 JANETT T Primary KIMMIE E [place] [id number] Insurance:ANTHEMPolic BROOKSDOB: Community [place] y Number: [id number], [place] [id number] Repository [address]Set: (330) jayme Date:1700-93-42FL [phone] () [address]Q, [place] [address]QT: 09/23/2018 Secondary JANETT T [facility] Insurance:MEDICARE BROOKSDOB: Community PART A [facility] [id number] Hospital Number: Repository [id number] Date:2018-09-23 09/23/2018 Tertiary NOT GIVENUNK [facility] Insurance:SELF PAY [facility] Number: Effective Repository Date:2018-09-23 09/23/2018 JANETT T Primary JANETT T [facility] [id number] Insurance:MEDICARE BROOKSDOB: Community DAVEY PART A olicy [id number] Number: Repository 232[address]Wsw: 330 [id number] [phone] () Date:2018-09-17 09/23/2018 Secondary KIMMIE E [place] Insurance:ANTHEMPolic BROOKSDOB: Community y Number: [id number] Hospital [id number] Repository jayme Date:9379-54-47TO [address] [place] [address] 63687YH: 09/23/2018 Tertiary NOT GIVENUNK [facility] Insurance:SELF PAY [facility] Number: Effective Repository Date:2018-09-23 09/18/2018 [facility] Primary KIMMIE E [place] [id number] Insurance:ANTHEMPolic BROOKSDOB: Community [place]AVEY y Number: [id number], [place] [id number] Repository 157[address]Fyb: 330) jayme Date:3850-23-28XT [phone] () [address] [place] [address] 77004GF: 09/18/2018 Secondary JANETT T [place] Insurance:MEDICARE BROOK[place]OB: Community PART A [facility] [id number] Hospital Number: Repository [id number] Date:2018-09-08 09/18/2018 Tertiary NOT GIVENUNK [place] Insurance:SELF PAY [facility] Number: Effective Repository Date:2018-09-08 09/17/2018 JANETT T Primary KIMMIE E [place] [id number] Insurance:ANTHEMPolic BROOKSDOB: Community [place] y Number: [id number], [place] [id number] Repository 264[address]Erg: (330) jayme Date:9182-99-64LR [phone] () [address] [place] [address] 43609WP: 09/17/2018 Secondary JANETT T [facility] Insurance:MEDICARE BROOKSDOB: Community PART A [facility] [id number] Hospital Number: Repository [id number] Date:2018-08-04 09/17/2018 Tertiary NOT GIVENUNK [facility] Insurance:SELF PAY [facility] Number: Effective Repository Date:2018-09-10 09/09/2018 JANETT T Primary KIMMIE E [place] [id number] Insurance:ANTHEMPolic BROOKSDOB: Community [place] y Number: [id number], [place] [id number] Repository 984[address]Rgv: (330) jayme Date:4812-09-71CQ [phone] () [address] [place] [address] 89446DB: 09/09/2018 Secondary JANETT T [facility] Insurance:MEDICARE BROOKSDOB: Community PART A [facility] [id number] Hospital Number: Repository [id number] Date:2018-09-05 09/09/2018 Tertiary NOT GIVENUNK [place] Insurance:SELF PAY [facility] Number: Effective Repository Date:2018-09-05 08/18/2018 JANETT T Primary KIMMIE E [facility] [id number] Insurance:ANTHEMPolic BROOKSDOB: Community [place] y Number: [id number], [place] [id number] Repository 98[address]Gfw: (330) jayme Date:9522-70-02LD [phone] () [address] [place] [address] 58597CY: 08/18/2018 Secondary JANETT T [place] Insurance:MEDICARE [place]OB: Community PART A [facility] [id number] Hospital Number: Repository [id number] Date:2018-08-18 08/18/2018 Tertiary NOT GIVENUNK [place] Insurance:SELF PAY [facility] Number: Effective Repository Date:2018-08-18 08/15/2018 JANETT T Primary KIMMIE E [facility] [id number] Insurance:ANTHEMPolic [place]OOK[place]OB: Community [place] y Number: [id number], [place] [id number] Repository 30[address]Llr: (330) jayme Date:9895-49-61TT -3014 () [address] [place] [address] 39546JU: 08/15/2018 Secondary JANETT T [place] Insurance:MEDICARE BROOKSDOB: Community PART A BPolicy [id number] Hospital Number: Repository [id number] Date:2018-08-15 08/15/2018 Tertiary NOT GIVENUNK [place] Insurance:SELF PAY [facility] Number: Effective Repository Date:2018-08-15 08/11/2018 JANETT T Primary NOT GIVENUNK [facility] [id number] Insurance:SELF [place] Number: Effective Repository 147[address]Frs: (330) Date:2018-08-04311 () 08/11/2018 JANETT T Primary KIMMIE E [place] [id number] Insurance:ANTHEMPolic BROOKSDOB: Community [place] y Number: [id number], [place] [id number] Repository 890[address]For: (330) jayme Date:4241-25-49FX [phone] () [address] [place] [address] 70946RZ: 08/11/2018 Secondary JANETT T [facility] Insurance:MEDICARE BROOKSDOB: Community PART A olicy [id number] Hospital Number: Repository [id number] Date:2018-08-04 08/11/2018 Tertiary NOT GIVENUNK [facility] Insurance:SELF PAY [facility] Number: Effective Repository Date:2018-08-11 08/11/2018 JANETT T Primary KIMMIE E [facility] [id number] Insurance:ANTHEMPolic [place]OOKSDOB: Community [place] y Number: [id number], [place] [id number] Repository 305[address]Czt: (330) jayme Date:9364-04-57LH [phone] () [address] [place] [address] 58364CY: 08/11/2018 Secondary JANETT Tiffanie [place] Insurance:MEDICARE BROOKSDOB: Community PART A olicy [id number] Hospital Number: Repository [id number] Date:2018-08-04 08/11/2018 Tertiary NOT GIVENUNK [facility] Insurance:SELF PAY [facility] Number: Effective Repository Date:2018-08-04 08/04/2018 JANETT T Primary KIMMIE E [place] [id number] Insurance:ANTHEMPolic BROOKSDOB: Community DAVEY y Number: [id number] [place] [id number] Repository 17[address]Uko: (377) jayme Date:5743-09-78FC [phone] () [address]RROBY, [place] [address]MI: 08/04/2018 Secondary JANETT Tiffanie [place] Insurance:MEDICARE BROOKSDOB: Community PART A [facility] [id number] Hospital Number: Repository [id number] Date:2018-07-31 08/04/2018 Tertiary NOT GIVENUNK [facility] Insurance:SELF PAY [facility] Number: Effective Repository Date:2018-08-04 07/27/2018 JANETT Moreno Primary KIMMIE [facility] BROOKSDOB: Insurance:BLUE ACCESS BROOKSDOB: Health System PPOPolicy Number: [id number] Repository DAVEY [id number] [place] jayme Date: [address]Vmn: () 07/27/2018 Secondary JANETT T [facility] Insurance:MEDICARE A BROOKSDOB: Health System AND BPolicy Number: [id number] Repository [id number] Date: 07/27/2018 JANETT T Primary KIMMIE E [facility] [id number] Insurance:ANTHEMPolic BROOKSDOB: Community DAVEY y Number: [id number] [place] [id number] Repository 225[address]Hjk: (743) jayme Date:1650-98-86UV [phone] () [address] [place] [address] 08881CK: 07/27/2018 Secondary JANETT T [place] Insurance:MEDICARE BROOKSDOB: Community PART A olicy [id number] Hospital Number: Repository [id number] Date:2018-07-27 07/27/2018 Tertiary NOT GIVENUNK [place] Insurance:SELF PAY [facility] Number: Effective Repository Date:2018-07-27 07/22/2018 JANETT T Primary KIMMIE E [place] [id number] Insurance:ANTHEMPolic BROOKSDOB: Community DAVEY y Number: [id number], [place] [id number] Repository 745[address]Qrs: (886) jayme Date:5434-71-58JA [phone] () [address]G, [place] [address]SK: 07/22/2018 Secondary JANETT T [facility] Insurance:MEDICARE BROOKSDOB: Community PART A [facility] [id number] Hospital Number: Repository [id number] Date:2017-12-25 07/22/2018 Tertiary NOT GIVENUNK [facility] Insurance:SELF PAY [facility] Number: Effective Repository Date:2018-07-22 07/21/2018 JANETT T Primary KIMMIE E [facility] [id number] Insurance:ANTHEMPolic BROOKSDOB: Community DAVEY y Number: [id number], [place] [id number] Repository 269[address]Hkv: (898) jayme Date:2775-97-93RF [phone] () [address]LLFVI[address] [place] [address] 77858UO: 07/21/2018 Secondary JANETT T [facility] Insurance:MEDICARE BROOKSDOB: Community PART A [facility] [id number] Hospital Number: Repository [id number] Date:2018-07-21 07/21/2018 Tertiary NOT GIVENUNK [facility] Insurance:SELF PAY [facility] Number: Effective Repository Date:2018-07-21 07/17/2018 JANETT T Primary JANETT T [place] [id number] Insurance:MEDICARE BROOKSDOB: Community DAVEY PART A [facility] [id number] [facility], Number: Repository [place] [address]Uui: [id number] Date:2018-07-17 () 07/17/2018 Secondary KIMMIE E [facility] Insurance:ANTHEMPolic BROOKSDOB: Community y Number: [id number] Hospital [id number] Repository jayme Date:8080-07-63FO [address]JGZXALG, [place] [address]MX: 07/17/2018 Tertiary NOT GIVENUNK [facility] Insurance:SELF PAY [facility] Number: Effective Repository Date:2018-07-17 12/25/2017 JANETT T Primary JANETT T [facility] [id number] Insurance:MEDICARE BROOKSDOB: Community DAVEY PART A [facility] [id number] [facility], Number: Repository [place] [address]Sek: [id number] Date:2017-10-01 () 12/25/2017 Secondary KIMMIE E [place] Insurance:ANTHEMPolic BROOKSDOB: Community y Number: [id number] Hospital [id number] Repository jayme Date:5745-35-61IR [address]KYWUMHM, [place] [address]QP: 12/25/2017 Tertiary NOT GIVENUNK [place] Insurance:SELF PAY [facility] Number: Effective Repository Date:2017-10-01
== END 2018-11-06 21:05 | disposition home or self-care (01) ==
PROVIDERS: Emergency Provider Emergency Medicine; Family Provider Family Medicine; PCP Family Medicine
DX: R33.9 Retention of urine, unspecified (principal); R30.0 Dysuria; R31.9 Hematuria, unspecified; R35.0 Frequency of micturition; E11.9 Type 2 diabetes mellitus without complications; I10 Essential (primary) hypertension; I25.10 Atherosclerotic heart disease of native coronary artery without angina pectoris; E78.00 Pure hypercholesterolemia, unspecified; N40.0 Benign prostatic hyperplasia without lower urinary tract symptoms; Z85.51 Personal history of malignant neoplasm of bladder
CPT/HCPCS: 51702; 99283; A4216

== ENCOUNTER → 2018-12-09 13:34 | Outpatient (CLI) | payer BC, MEDICARE, SELFPAY ==
[2018-12-09 13:34] VITALS: BMI 26.5
[2018-12-09 15:37] LABS: Hemoglobin A1c 7.3 % (4.2-6.3)
== END ==
PROVIDERS: Family Provider Family Medicine; PCP Family Medicine; Visit Provider Family Medicine
DX: R73.09 Other abnormal glucose (principal)
CPT/HCPCS: 36415; 83036

== ENCOUNTER → 2018-12-15 08:51 | Outpatient (CLI) | payer BC, MEDICARE, SELFPAY ==
[2018-12-09 13:34] VITALS: BMI 26.5
[2018-12-15 09:56] LABS: Absolute Lymphocyte Count 1.33 X10^3/ul (0.83-4.51); Absolute Neutrophil Count 4.1 X10^3/uL (2.0-7.7); Basophil# 0.03 X10^3/uL; Basophil% 0.5 % (0-1); Eosinophil# 0.41 X10^3/uL; Eosinophils% 6.3 % (0-5); Hematocrit 41.9 % (40-54); Hemoglobin 13.9 g/dl (13.0-16.5); Lymphocyte # 1.33 X10^3/ul (4.0); Lymphocyte % 20.4 % (19-41); Mean Corp Hgb Conc 33.2 g/gl (32-36); Mean Corpuscular Hgb 28.7 pg (27.0-32.0); Mean Corpuscular Volume 86.6 fL (80-94); Mean Platelet Vol. 10.2 fl (6.2-12.0); Monocyte# 0.59 X10^3/uL; Neutrophil # 4.14 X10^3/uL (2.7-7.7); Neutrophil % 63.5 % (47-70); Platelet Count 201 K/mm3 (150-450); RBC Distribution Width CV 13.1 % (11.6-14.6); RBC Distribution Width SD 40.2 fl (35.1-43.9); Red Blood Count 4.84 M/mm3 (4.6-6.2); White Blood Count 6.5 K/mm3 (4.4-11.0)
[2018-12-15 09:57] LABS: POSITIVE COUNT NO; POSITIVE DIFFERENTIAL NO; POSITIVE MORPHOLOGY NO
[2018-12-15 10:05] LABS: ALB/GLOB Ratio 1.1 RATIO (0.9-2.4); AST(SGOT) 14 U/L (15-37); Alanine Aminotransfer ALT/SGPT 22 U/L (16-61); Albumin, Serum 3.7 g/dL (3.2-5.0); Alkaline Phosphatase 87 U/L (45-117); Anion Gap 6 (5-15); BUN 15 mg/dL (7-18); BUN/Creat Ratio 14.3 RATIO (10-20); Calcium,Total 8.5 mg/dL (8.5-10.1); Chloride 106 mmol/L (98-107); Cholesterol 159 mg/dL (200); Creatinine, Serum 1.05 mg/dL (0.70-1.30); EST Glomerular Filtration Rate 75 mL/min (>60); Est Glom Filt Rate - Afr Amer 91 mL/min (>60); Globulin 3.4 g/dL (2.2-4.2); Glucose 168 mg/dL (74-106); High Density Lipoprotein 55 mg/dL; Potassium 4.6 mmol/L (3.5-5.1); Protein, Total 7.1 g/dL (6.4-8.2); Sodium Level 138 mmol/L (136-145); Triglycerides 101 mg/dL; Very Low Density Lipoprotein 20 mg/dL (5-40)
[2018-12-15 10:16] LABS: Hemoglobin A1c 7.6 % (4.2-6.3)
[2018-12-15 13:25] LABS: Bacteria 0 SEEN /hpf (None Seen); Mucous, Urine 0 SEEN /hpf (<or=2+); Squamous Epithelial Cells - UA 0 SEEN /hpf (0-5); White Blood Cells 0 SEEN /hpf (0-5)
[2018-12-15 14:57] LABS: Color, Urine Yellow (Yellow); Glucose, Dipstick 100 mg/dl (Normal); Ketone-Dipstick Negative (Negative); Leukocyte Esterase-Dipstick 25 /ul (Negative); Nitrite-Dipstick Negative (Negative); Occult Blood-Urine 250 /ul (Negative); Protein-Dipstick 15 mg/dl (Negative); Urine Bilirubin Dipstick Negative (Negative); Urine Clarity Clear (Clear); Urine Urobilinogen Normal (Normal); Urine pH 6.5 (5.0 - 8.0)
[2018-12-15 15:07] LABS: Microalbumin,Random Urine 66.8 mg/L (NO RANGE EST.); Microalbumin:Creatinine Ratio 89.8 mg/g CRE (<30 mg/g CRE)
[2018-12-15 15:29] LABS: Red Blood Cells-Urine 10-25 SEEN /hpf (0-5)
== END ==
PROVIDERS: Family Provider Family Medicine; PCP Family Medicine; Referring Provider Family Medicine; Visit Provider Family Medicine
DX: E55.9 Vitamin D deficiency, unspecified (principal); E78.5 Hyperlipidemia, unspecified; I10 Essential (primary) hypertension; Z72.0 Tobacco use; E11.9 Type 2 diabetes mellitus without complications
CPT/HCPCS: 36415; 80053; 80061; 81001; 82043; 82570; 83036; 85025

== ENCOUNTER 2018-12-25 13:13 | Outpatient (RCR) | payer BC, MEDICARE, SELFPAY ==
[2018-12-09 13:34] VITALS: BMI 26.5
== END 2019-01-18 23:59 ==
LOC: DC 13:13
PROVIDERS: Family Provider Family Medicine; PCP Family Medicine; Visit Provider Family Medicine
DX: Z71.3 Dietary counseling and surveillance (principal); E11.9 Type 2 diabetes mellitus without complications
CPT/HCPCS: G0109

== ENCOUNTER → 2019-04-14 08:54 | Outpatient (CLI) | payer BC, MEDICARE, SELFPAY ==
[2018-12-25 13:55] VITALS: BMI 26.5
--- NOTE | 2019-04-14 08:55 | US_ITS ---
PROCEDURES: ULTRASOUND AORTA REASON FOR EXAM: Male, 68 years old. Screening. Tobacco use. TECHNIQUE: Ultrasound evaluation of the aorta was performed with real-time and static alvarado-scale imaging. COMPARISON: CT of the abdomen and pelvis, July 27, 2018. FINDINGS: There is atherosclerotic plaque formation of the abdominal aorta. Aorta measures: Proximal 2.3 cm. Middle 1.6 cm. Distal 2.4 cm. Aorta measure transversely: Proximal 2.1 cm. Middle 1.8 cm. Distal 2.7 cm. There is normal color flow, velocity and waveform within the aorta. Right iliac artery measures: 1.3 cm. Right iliac artery measure transversely: 1.0 cm. Left iliac artery measures: 1.0 cm. Left iliac artery measure transversely: 1.0 cm. There is no demonstrated aneurysm.. US/Aorta IMPRESSION: Ectatic atherosclerotic aorta without aneurysm. The findings appear similar to the prior CT. Electronically Signed: Jerry De La Cruz DO at 17:03 EDT Tel [phone], Service support ,
== END ==
PROVIDERS: Family Provider Family Medicine; PCP Family Medicine; Referring Provider Family Medicine; Visit Provider Family Medicine
DX: Z13.6 Encounter for screening for cardiovascular disorders (principal); Z72.0 Tobacco use
CPT/HCPCS: 76775

== ENCOUNTER 2019-05-21 18:00 | Outpatient (RCR) | payer BC, MEDICARE, SELFPAY ==
[2018-12-25 13:55] VITALS: BMI 26.5
== END 2019-06-20 23:59 ==
LOC: DC 18:00
PROVIDERS: Family Provider Family Medicine; PCP Family Medicine; Visit Provider Family Medicine
DX: Z71.3 Dietary counseling and surveillance (principal); E11.9 Type 2 diabetes mellitus without complications
CPT/HCPCS: G0109

== ENCOUNTER → 2019-06-11 14:09 | Outpatient (CLI) | payer BC, MEDICARE, SELFPAY ==
[2018-12-25 13:55] VITALS: BMI 26.5
[2019-06-11 15:40] LABS: Absolute Lymphocyte Count 1.44 X10^3/uL (0.83-4.51); Absolute Neutrophil Count 3.6 X10^3/uL (2.0-7.7); Basophil# 0.03 X10^3/uL; Basophil% 0.5 % (0-1); Eosinophils% 6.6 % (0-5); Hemoglobin 13.2 g/dL (13.0-16.5); Lymphocyte # 1.44 X10^3/ul (4.0); Lymphocyte % 23.7 % (19-41); Mean Corpuscular Hgb 29.3 pg (27.0-32.0); Mean Corpuscular Volume 88.9 fL (80-94); Mean Platelet Vol. 10.3 fl (6.2-12.0); Monocyte# 0.55 X10^3/uL; NRBC Flagged by Analyzer 0 % (0-5); Neutrophil # 3.64 X10^3/uL (2.7-7.7); Neutrophil % 59.9 % (47-70); Platelet Count 199 K/mm3 (150-450); RBC Distribution Width CV 13.7 % (11.6-14.6); RBC Distribution Width SD 44.4 fl (35.1-43.9); White Blood Count 6.1 K/mm3 (4.4-11.0)
[2019-06-11 16:15] LABS: ALB/GLOB Ratio 1.1 RATIO (0.9-2.4); AST(SGOT) 16 U/L (15-37); Alanine Aminotransfer ALT/SGPT 19 U/L (16-61); Albumin, Serum 3.7 g/dL (3.2-5.0); Alkaline Phosphatase 68 U/L (45-117); Anion Gap 4 (5-15); BUN 17 mg/dL (7-18); BUN/Creat Ratio 17.8 RATIO (10-20); CPK Total, Creatine Kinase 154 U/L (39-308); Calcium,Total 8.9 mg/dL (8.5-10.1); Chloride 111 mmol/L (98-107); Cholesterol 117 mg/dL (200); Creatinine, Serum 0.96 mg/dL (0.70-1.30); EST Glomerular Filtration Rate 84 mL/min (>60); Est Glom Filt Rate - Afr Amer 101 mL/min (>60); Ferritin 67 ng/mL (26-388); Globulin 3.3 g/dL (2.2-4.2); Glucose 97 mg/dL (74-106); High Density Lipoprotein 53 mg/dL; Potassium 4.1 mmol/L (3.5-5.1); Sodium Level 142 mmol/L (136-145); Thyroid Stim Hormone (TSH) 0.73 uIU/mL (0.358-3.74); Triglycerides 81 mg/dL; Very Low Density Lipoprotein 16 mg/dL (5-40)
[2019-06-11 16:18] LABS: Vitamin B12 197 pg/mL (211-911); Vitamin D,25 Hydroxy 26.5 ng/mL (29.95-100.01)
[2019-06-11 16:19] LABS: Erythrocyte Sedimentation Rate 6 mm/hr (0-20)
[2019-06-11 16:20] LABS: Hemoglobin A1c 6.8 % (4.2-6.3)
== END ==
PROVIDERS: Family Provider Family Medicine; PCP Family Medicine; Referring Provider Family Medicine; Visit Provider Family Medicine
DX: E55.9 Vitamin D deficiency, unspecified (principal); I10 Essential (primary) hypertension; E78.5 Hyperlipidemia, unspecified; E11.9 Type 2 diabetes mellitus without complications; R53.83 Other fatigue; R25.2 Cramp and spasm
CPT/HCPCS: 36415; 80053; 80061; 82306; 82550; 82607; 82728; 83036; 83735; 84443; 85025; 85652

== ENCOUNTER → 2019-06-12 11:17 | Outpatient (CLI) | payer BC, MEDICARE, SELFPAY ==
[2018-12-25 13:55] VITALS: BMI 26.5
[2019-06-12 13:14] LABS: Microalbumin,Random Urine 30.5 mg/L (NO RANGE EST.); Microalbumin:Creatinine Ratio 21.2 mg/g CRE (<30 mg/g CRE)
== END ==
PROVIDERS: Family Provider Family Medicine; PCP Family Medicine; Referring Provider Family Medicine; Visit Provider Family Medicine
DX: E78.5 Hyperlipidemia, unspecified (principal); E11.9 Type 2 diabetes mellitus without complications; E55.9 Vitamin D deficiency, unspecified; I10 Essential (primary) hypertension; R80.9 Proteinuria, unspecified; R25.2 Cramp and spasm; R53.1 Weakness; R53.83 Other fatigue
CPT/HCPCS: 82043; 82570

== ENCOUNTER 2019-07-23 15:50 | Outpatient (RCR) | payer BC, MEDICARE, SELFPAY ==
[2018-12-25 13:55] VITALS: BMI 26.5
== END 2019-07-23 23:59 | disposition home or self-care (01) ==
LOC: DC 15:50
PROVIDERS: Family Provider Family Medicine; PCP Family Medicine; Visit Provider Family Medicine
DX: E11.9 Type 2 diabetes mellitus without complications (principal); Z71.3 Dietary counseling and surveillance
CPT/HCPCS: G0109

== ENCOUNTER → 2019-10-08 13:37 | Outpatient (CLI) | payer BC, MEDICARE, SELFPAY ==
[2019-09-03 07:47] VITALS: BMI 25.4
[2019-10-08 13:39] LABS: Bacteria 0 SEEN /hpf (None Seen); Mucous, Urine 0 SEEN /hpf (<or=2+); Red Blood Cells-Urine 0 SEEN /hpf (0-5); Squamous Epithelial Cells - UA 0 SEEN /hpf (0-5); White Blood Cells 0 SEEN /hpf (0-5)
[2019-10-08 15:52] LABS: Color, Urine Yellow (Yellow); Glucose, Dipstick Normal (Normal); Ketone-Dipstick Negative (Negative); Leukocyte Esterase-Dipstick Negative /ul (Negative); Nitrite-Dipstick Negative (Negative); Occult Blood-Urine Negative /ul (Negative); Protein-Dipstick Negative (Negative); Urine Bilirubin Dipstick Negative (Negative); Urine Clarity Clear (Clear); Urine Urobilinogen Normal (Normal); Urine pH 6.5 (5.0 - 8.0)
[2019-10-08 15:53] LABS: Basophil# 0.04 X10^3/uL; Basophil% 0.5 % (0-1); Eosinophil# 0.29 X10^3/uL; Eosinophils% 3.9 % (0-5); Hemoglobin 15.1 g/dL (13.0-16.5); Mean Corp Hgb Conc 32.8 g/dL (32-36); Mean Corpuscular Hgb 29.3 pg (27.0-32.0); Mean Corpuscular Volume 89.1 fL (80-94); Mean Platelet Vol. 10.2 fl (6.2-12.0); Monocyte# 0.65 X10^3/uL; Monocyte% 8.7 % (0-10); NRBC Flagged by Analyzer 0 % (0-5); Neutrophil # 4.98 X10^3/uL (2.7-7.7); Neutrophil % 66.5 % (47-70); Platelet Count 208 K/mm3 (150-450); RBC Distribution Width CV 13.1 % (11.6-14.6); RBC Distribution Width SD 42.5 fl (35.1-43.9); Red Blood Count 5.16 M/mm3 (4.6-6.2); White Blood Count 7.5 K/mm3 (4.4-11.0)
[2019-10-08 16:06] LABS: ALB/GLOB Ratio 1.2 RATIO (0.9-2.4); AST(SGOT) 10 U/L (15-37); Alanine Aminotransfer ALT/SGPT 22 U/L (16-61); Albumin, Serum 4.2 g/dL (3.2-5.0); Alkaline Phosphatase 65 U/L (45-117); Anion Gap 6 (5-15); BUN 15 mg/dL (7-18); BUN/Creat Ratio 15.1 RATIO (10-20); Chloride 102 mmol/L (98-107); Cholesterol 143 mg/dL (200); EST Glomerular Filtration Rate 80 mL/min (>60); Est Glom Filt Rate - Afr Amer 96 mL/min (>60); Globulin 3.6 g/dL (2.2-4.2); Glucose 95 mg/dL (74-106); Hemoglobin A1c 6.9 % (4.2-6.3); High Density Lipoprotein 58 mg/dL; Potassium 3.8 mmol/L (3.5-5.1); Protein, Total 7.8 g/dL (6.4-8.2); Sodium Level 137 mmol/L (136-145); Triglycerides 100 mg/dL; Very Low Density Lipoprotein 20 mg/dL (5-40)
[2019-10-08 16:08] LABS: Vitamin B12 1045 pg/mL (211-911); Vitamin D,25 Hydroxy 54.6 ng/mL (29.95-100.01)
[2019-10-08 16:23] LABS: Microalbumin:Creatinine Ratio 29.3 mg/g CRE (<30 mg/g CRE)
== END ==
PROVIDERS: Family Provider Family Medicine; PCP Family Medicine; Referring Provider Family Medicine; Visit Provider Family Medicine
DX: I10 Essential (primary) hypertension (principal); E78.5 Hyperlipidemia, unspecified; E11.9 Type 2 diabetes mellitus without complications; E53.8 Deficiency of other specified B group vitamins; E55.9 Vitamin D deficiency, unspecified
CPT/HCPCS: 36415; 80053; 80061; 81001; 82043; 82306; 82570; 82607; 83036; 85025

== ENCOUNTER → 2019-10-16 07:37 | Outpatient (CLI) | payer BC, MEDICARE, SELFPAY ==
[2019-09-03 07:47] VITALS: BMI 25.4
--- NOTE | 2019-10-16 07:39 | CDU_ITS ---
Reason For Study: Carotid stenosis Rt. Velocities/BP Lt. Velocities/BP Prox CCA 100.8/18.6 cm/sec. Prox CCA 88.2/15.7 cm/sec. Mid CCA 104.7/20 cm/sec. Mid CCA 115.8/22.5 cm/sec. Dist CCA 77.3/17.3 cm/sec. Dist CCA 144.8/17 cm/sec. Prox ICA 47.6/11.3 cm/sec. Prox ICA 194.9/55.9 cm/sec. Mid ICA 78.3/24.5 cm/sec. Mid ICA 149.9/38 cm/sec. Dist ICA 73.9/26.7 cm/sec. Dist ICA 123.5/18.2 cm/sec. Rt. ICA/CCA = 0.8. Lt. ICA/CCA = 1.7. Prox ECA 93/9.5 cm/sec. Prox ECA 121.1/11.5 cm/sec. Rt. Vert. 48.7/14.6 cm/sec. Lt. Vert. 65.4/15.1 cm/sec. Right Extracranial There is homogeneous, smooth atherosclerotic plaque noted in the right common carotid artery. There is homogeneous, smooth atherosclerotic plaque noted in the right internal carotid artery. There is intimal thickening but no significant atherosclerotic plaque noted in the right external carotid artery. Antegrade flow is noted in the right vertebral artery. Left Extracranial There is homogeneous, irregular atherosclerotic plaque noted in the left common carotid artery. There is homogeneous, irregular atherosclerotic plaque noted in the left internal carotid artery. There is intimal thickening but no significant atherosclerotic plaque noted in the left external carotid artery. The left external carotid artery is not well visualized. Antegrade flow is noted in the left vertebral artery. Procedure Carotid Duplex 89877. Exam performed in department. Interpretation Summary Mild (<50%) stenosis right extracranial internal carotid. Moderate (50-69%) stenosis left extracranial internal carotid. Flow within the vertebral arteries is antegrade bilaterally. Ordering Physician: Sampson De La Vega Referring Physician: Sampson De La Vega Performed By: Therese Hough RVT
== END ==
PROVIDERS: Family Provider Family Medicine; PCP Family Medicine; Referring Provider Family Medicine; Visit Provider Family Medicine
DX: I65.23 Occlusion and stenosis of bilateral carotid arteries (principal)
CPT/HCPCS: 93880

== ENCOUNTER → 2020-02-09 15:34 | Outpatient (CLI) | payer MEDICARE, SELFPAY ==
[2019-09-03 07:47] VITALS: BMI 25.4
[2020-02-09 17:34] LABS: Absolute Lymphocyte Count 1.27 X10^3/uL (0.83-4.51); Basophil# 0.02 X10^3/uL; Basophil% 0.3 % (0-1); Eosinophil# 0.25 X10^3/uL; Eosinophils% 4.1 % (0-5); Hematocrit 39.8 % (40-54); Lymphocyte # 1.27 X10^3/ul (4.0); Lymphocyte % 20.7 % (19-41); Mean Corp Hgb Conc 32.7 g/dL (32-36); Mean Corpuscular Hgb 29.5 pg (27.0-32.0); Mean Corpuscular Volume 90.5 fL (80-94); Monocyte# 0.61 X10^3/uL; NRBC Flagged by Analyzer 0 % (0-5); Neutrophil # 3.96 X10^3/uL (2.7-7.7); Neutrophil % 64.6 % (47-70); Platelet Count 228 K/mm3 (150-450); RBC Distribution Width CV 12.9 % (11.6-14.6); RBC Distribution Width SD 42.9 fl (35.1-43.9); White Blood Count 6.1 K/mm3 (4.4-11.0)
[2020-02-09 18:03] LABS: Hemoglobin A1c 6.7 % (4.2-6.3)
[2020-02-09 18:04] LABS: Vitamin D,25 Hydroxy 62.8 ng/mL
[2020-02-09 18:11] LABS: ALB/GLOB Ratio 1.2 RATIO (0.9-2.4); AST(SGOT) 12 U/L (15-37); Alanine Aminotransfer ALT/SGPT 19 U/L (16-61); Albumin, Serum 3.8 g/dL (3.2-5.0); Alkaline Phosphatase 68 U/L (45-117); Anion Gap 6 (5-15); BUN 13 mg/dL (7-18); BUN/Creat Ratio 12.6 RATIO (10-20); Calcium,Total 9.1 mg/dL (8.5-10.1); Chloride 103 mmol/L (98-107); Cholesterol 127 mg/dL (200); Creatinine, Serum 1.03 mg/dL (0.70-1.30); EST Glomerular Filtration Rate 76 mL/min (>60); Est Glom Filt Rate - Afr Amer 93 mL/min (>60); Globulin 3.2 g/dL (2.2-4.2); Glucose 100 mg/dL (74-106); High Density Lipoprotein 60 mg/dL; Potassium 4.2 mmol/L (3.5-5.1); Sodium Level 137 mmol/L (136-145); Triglycerides 73 mg/dL; Very Low Density Lipoprotein 15 mg/dL (5-40)
== END ==
PROVIDERS: PCP Family Medicine; Referring Provider Family Medicine; Visit Provider Family Medicine
DX: I10 Essential (primary) hypertension (principal); E11.9 Type 2 diabetes mellitus without complications; E78.5 Hyperlipidemia, unspecified; E55.9 Vitamin D deficiency, unspecified; Z72.0 Tobacco use
CPT/HCPCS: 36415; 80053; 80061; 82306; 83036; 85025

== ENCOUNTER → 2020-02-10 | Outpatient (CLI) | payer MEDICARE, SELFPAY ==
[2019-09-03 07:47] VITALS: BMI 25.4
[2020-02-10 14:26] LABS: Bacteria 0 SEEN /hpf (None Seen); Mucous, Urine 0 SEEN /hpf (<or=2+); Red Blood Cells-Urine 0 SEEN /hpf (0-5); Squamous Epithelial Cells - UA 0 SEEN /hpf (0-5); White Blood Cells 0 SEEN /hpf (0-5)
[2020-02-10 15:39] LABS: Color, Urine Yellow (Yellow); Glucose, Dipstick Normal (Normal); Ketone-Dipstick Negative (Negative); Leukocyte Esterase-Dipstick Negative /ul (Negative); Nitrite-Dipstick Negative (Negative); Occult Blood-Urine Negative /ul (Negative); Protein-Dipstick Negative (Negative); Specific Gravity, Urine 1.015 (1.002-1.030); Urine Bilirubin Dipstick Negative (Negative); Urine Clarity Clear (Clear); Urine Urobilinogen Normal (Normal)
[2020-02-10 16:21] LABS: Microalbumin:Creatinine Ratio 19.3 mg/g CRE (<30 mg/g CRE)
== END | disposition home or self-care (01) ==
LOC: LABSPEC 14:13
PROVIDERS: PCP Family Medicine; Referring Provider Family Medicine; Visit Provider Family Medicine
DX: I10 Essential (primary) hypertension (principal); E11.9 Type 2 diabetes mellitus without complications; E78.5 Hyperlipidemia, unspecified; E55.9 Vitamin D deficiency, unspecified; Z72.0 Tobacco use
CPT/HCPCS: 81001; 82043; 82570

== ENCOUNTER → 2020-07-05 12:07 | Outpatient (CLI) | payer MEDICARE, SELFPAY ==
[2020-03-08 15:12] VITALS: BMI 25.4
[2020-07-05 15:46] LABS: Absolute Lymphocyte Count 1.32 X10^3/uL (0.83-4.51); Absolute Neutrophil Count 5.2 X10^3/uL (2.0-7.7); Basophil# 0.03 X10^3/uL; Basophil% 0.4 % (0-1); Eosinophil# 0.16 X10^3/uL; Eosinophils% 2.2 % (0-5); Hemoglobin 13.3 g/dL (13.0-16.5); Lymphocyte # 1.32 X10^3/ul (4.0); Lymphocyte % 18.2 % (19-41); Mean Corp Hgb Conc 32.4 g/dL (32-36); Mean Corpuscular Hgb 28.9 pg (27.0-32.0); Mean Corpuscular Volume 88.9 fL (80-94); Mean Platelet Vol. 10.4 fl (6.2-12.0); Monocyte# 0.54 X10^3/uL; Monocyte% 7.4 % (0-10); NRBC Flagged by Analyzer 0 % (0-5); Neutrophil # 5.19 X10^3/uL (2.7-7.7); Neutrophil % 71.5 % (47-70); Platelet Count 254 K/mm3 (150-450); RBC Distribution Width CV 13.1 % (11.6-14.6); RBC Distribution Width SD 42.7 fl (35.1-43.9); Red Blood Count 4.61 M/mm3 (4.6-6.2); White Blood Count 7.3 K/mm3 (4.4-11.0)
[2020-07-05 15:55] LABS: Vitamin B12 706 pg/mL (211-911); Vitamin D,25 Hydroxy 91.5 ng/mL
[2020-07-05 15:58] LABS: Microalbumin,Random Urine 13.1 mg/L (NO RANGE EST.); Microalbumin:Creatinine Ratio 24.1 mg/g CRE (<30 mg/g CRE)
[2020-07-05 16:01] LABS: Hemoglobin A1c 6.3 % (3.8-5.6)
[2020-07-05 16:04] LABS: ALB/GLOB Ratio 1.2 RATIO (0.9-2.4); AST(SGOT) 12 U/L (15-37); Alanine Aminotransfer ALT/SGPT 19 U/L (16-61); Alkaline Phosphatase 65 U/L (45-117); Anion Gap 7 (5-15); BUN 13 mg/dL (7-18); BUN/Creat Ratio 13.2 RATIO (10-20); Calcium,Total 9.4 mg/dL (8.5-10.1); Chloride 101 mmol/L (98-107); Cholesterol 121 mg/dL (200); Creatinine, Serum 0.99 mg/dL (0.70-1.30); EST Glomerular Filtration Rate 80 mL/min (>60); Est Glom Filt Rate - Afr Amer 97 mL/min (>60); Globulin 3.3 g/dL (2.2-4.2); Glucose 108 mg/dL (74-106); High Density Lipoprotein 58 mg/dL; Potassium 3.7 mmol/L (3.5-5.1); Protein, Total 7.3 g/dL (6.4-8.2); Sodium Level 137 mmol/L (136-145); Triglycerides 63 mg/dL; Very Low Density Lipoprotein 13 mg/dL (5-40)
== END ==
PROVIDERS: PCP Family Medicine; Referring Provider Family Medicine; Visit Provider Family Medicine
DX: E55.9 Vitamin D deficiency, unspecified (principal); E53.8 Deficiency of other specified B group vitamins; R80.9 Proteinuria, unspecified; E78.5 Hyperlipidemia, unspecified; E11.9 Type 2 diabetes mellitus without complications
CPT/HCPCS: 36415; 80053; 80061; 82043; 82306; 82570; 82607; 83036; 85025

== ENCOUNTER → 2020-07-13 15:24 | Outpatient (CLI) | payer MEDICARE, SELFPAY ==
[2020-03-08 15:12] VITALS: BMI 25.4
--- NOTE | 2020-07-13 15:28 | RAD_ITS ---
STUDY: X-RAY - LEFT SHOULDER REASON FOR EXAM: Male, 70 years old. BILATERAL SHOULDER PAIN, NKI TECHNIQUE: 4 view(s) of the shoulder. COMPARISON: None. FINDINGS: Normal glenohumeral articulation. Normal acromioclavicular joint. Normal acromion. Normal humeral head and visualized proximal humerus. The soft tissue structures are unremarkable. Normal visualized pulmonary apex. RAD/Shoulder min 2 Views IMPRESSION: Normal x-ray examination of the shoulder. Electronically Signed: Bhavin Chirinos MD at 23:36 EDT , Service support ,
--- NOTE | 2020-07-13 15:28 | RAD_ITS ---
STUDY: X-RAY - RIGHT SHOULDER REASON FOR EXAM: Male, 70 years old. BILATERAL SHOULDER PAIN, NKI TECHNIQUE: 4 view(s) of the shoulder. COMPARISON: None. FINDINGS: Normal glenohumeral articulation. There mild degenerative changes of the right AC joint. Normal acromion. Normal humeral head and visualized proximal humerus. The soft tissue structures are unremarkable. Normal visualized pulmonary apex. RAD/Shoulder min 2 Views IMPRESSION: Mild degenerative changes of the right AC joint. There is no evidence of fracture, dislocation, or lytic or blastic osseous process. There is no evidence of calcific tendinitis or bursitis. Electronically Signed: Bhavin Chirinos MD at 23:34 EDT , Service support ,
== END ==
PROVIDERS: PCP Family Medicine; Referring Provider Family Medicine; Visit Provider Family Medicine
DX: M25.511 Pain in right shoulder (principal); M25.512 Pain in left shoulder
CPT/HCPCS: 73030

== ENCOUNTER → 2020-11-15 08:31 | Outpatient (CLI) | payer MEDICARE, SELFPAY ==
[2020-03-08 15:12] VITALS: BMI 25.4
[2020-11-15 08:36] LABS: Bacteria 0 SEEN /hpf (None Seen); Mucous, Urine 0 SEEN /hpf (<or=2+); Red Blood Cells-Urine 0 SEEN /hpf (0-5); White Blood Cells 0 SEEN /hpf (0-5)
[2020-11-15 10:37] LABS: Absolute Lymphocyte Count 1.37 X10^3/uL (0.83-4.51); Absolute Neutrophil Count 4.9 X10^3/uL (2.0-7.7); Basophil# 0.03 X10^3/uL; Basophil% 0.4 % (0-1); Eosinophil# 0.37 X10^3/uL; Hematocrit 42.7 % (40-54); Hemoglobin 13.9 g/dL (13.0-16.5); Lymphocyte # 1.37 X10^3/ul (4.0); Lymphocyte % 18.6 % (19-41); Mean Corp Hgb Conc 32.6 g/dL (32-36); Mean Corpuscular Volume 89.1 fL (80-94); Mean Platelet Vol. 10.1 fl (6.2-12.0); Monocyte# 0.68 X10^3/uL; Monocyte% 9.2 % (0-10); NRBC Flagged by Analyzer 0 % (0-5); Neutrophil % 66.7 % (47-70); Platelet Count 199 K/mm3 (150-450); RBC Distribution Width CV 12.9 % (11.6-14.6); RBC Distribution Width SD 42.4 fl (35.1-43.9); Red Blood Count 4.79 M/mm3 (4.6-6.2); White Blood Count 7.4 K/mm3 (4.4-11.0)
[2020-11-15 10:50] LABS: Color, Urine Yellow (Yellow); Glucose, Dipstick Normal (Normal); Ketone-Dipstick Negative (Negative); Leukocyte Esterase-Dipstick Negative /ul (Negative); Nitrite-Dipstick Negative (Negative); Occult Blood-Urine Negative /ul (Negative); Protein-Dipstick Negative (Negative); Specific Gravity, Urine 1.015 (1.002-1.030); Urine Bilirubin Dipstick Negative (Negative); Urine Clarity Sl. Cloudy (Clear); Urine Urobilinogen Normal (Normal)
[2020-11-15 10:56] LABS: Hemoglobin A1c 6.3 % (3.8-5.6)
[2020-11-15 11:03] LABS: Vitamin B12 > 2000 pg/mL (211-911)
[2020-11-15 11:04] LABS: Vitamin D,25 Hydroxy 55.8 ng/mL
[2020-11-15 11:06] LABS: ALB/GLOB Ratio 1.1 RATIO (0.9-2.4); AST(SGOT) 12 U/L (15-37); Alanine Aminotransfer ALT/SGPT 18 U/L (16-61); Albumin, Serum 3.9 g/dL (3.2-5.0); Alkaline Phosphatase 76 U/L (45-117); Anion Gap 6 (5-15); BUN 17 mg/dL (7-18); BUN/Creat Ratio 16.2 RATIO (10-20); Chloride 100 mmol/L (98-107); Cholesterol 112 mg/dL (200); Creatinine, Serum 1.05 mg/dL (0.70-1.30); EST Glomerular Filtration Rate 75 mL/min (>60); Est Glom Filt Rate - Afr Amer 90 mL/min (>60); Globulin 3.4 g/dL (2.2-4.2); Glucose 130 mg/dL (74-106); High Density Lipoprotein 47 mg/dL; Potassium 4.4 mmol/L (3.5-5.1); Protein, Total 7.3 g/dL (6.4-8.2); Sodium Level 134 mmol/L (136-145); Triglycerides 70 mg/dL; Very Low Density Lipoprotein 14 mg/dL (5-40)
[2020-11-15 11:20] LABS: Microalbumin,Random Urine 13.6 mg/L (NO RANGE EST.); Microalbumin:Creatinine Ratio 17.4 mg/g CRE (<30 mg/g CRE)
[2020-11-15 11:23] LABS: Squamous Epithelial Cells - UA 0-5 SEEN /hpf (0-5)
== END ==
PROVIDERS: PCP Family Medicine; Referring Provider Family Medicine; Visit Provider Family Medicine
DX: E53.8 Deficiency of other specified B group vitamins (principal); I10 Essential (primary) hypertension; E11.9 Type 2 diabetes mellitus without complications; E55.9 Vitamin D deficiency, unspecified
CPT/HCPCS: 36415; 80053; 80061; 81001; 82043; 82306; 82570; 82607; 83036; 85025

== ENCOUNTER 2020-12-27 06:46 | Day surgery (SDC) | payer MEDICARE, SELFPAY ==
[2020-12-20 12:46] VITALS: BMI 26.7
[2020-12-22 08:50] LABS: Anion Gap 4 (5-15); BUN 17 mg/dL (7-18); BUN/Creat Ratio 16.8 RATIO (10-20); Calcium,Total 9.4 mg/dL (8.5-10.1); Chloride 103 mmol/L (98-107); Creatinine, Serum 1.01 mg/dL (0.70-1.30); EST Glomerular Filtration Rate 78 mL/min (>60); Est Glom Filt Rate - Afr Amer 94 mL/min (>60); Glucose 132 mg/dL (74-106); Potassium 4.7 mmol/L (3.5-5.1); Sodium Level 137 mmol/L (136-145)
[2020-12-26 10:59] VITALS: BMI 26.7
--- NOTE | 2020-12-27 10:53 | CL.IE_ITS ---
Patient: JANETT WALLIS Study Date: 12/27/2020 Performing: Xavi Brody MD : 1950 Age: 70 Gender: male PROCEDURES PERFORMED [id number] OF LOOP RECORDER INDICATIONS Removal of ILR PROCEDURE DETAILS The patient was brought to the Catheterization Lab in the postabsorptive nonsedated state. Infor med consent was obtained prior to the procedure. Local anesthetic was given subcutaneously to the le ft upper chest area with Lidocaine 2%. Incision was made to the left upper chest. ICM Reveal LINQ was removed. Steri-strips applied to Lt chest area. The patient tolerated the procedure well. Estimated Blood Loss: 3 ml's IMPLANTED / EX-PLANTED DEVICES DEVICE PARAMETERS CONCLUSIONS / RECOMMENDATIONS Device Conclusions: Successful removal of a implantable loop recorder Device Recommendations: Follow up with Primary Care Physician PROCEDURE MEDICATIONS Antibiotic given in appropriate timeframe. Ancef 2 Gm IV @ 12/27/2020 07:56:11 Signed By Xavi Brody MD On 12/27/2020 10:52:45 Xavi Brody MD
== END 2020-12-27 09:15 | disposition home or self-care (01) ==
LOC: CLSP 06:49
PROVIDERS: PCP Family Medicine; Referring Provider Internal Medicine Cardiovascular Disease; Visit Provider Internal Medicine Cardiovascular Disease
DX: Z45.09 Encounter for adjustment and management of other cardiac device (principal); I25.10 Atherosclerotic heart disease of native coronary artery without angina pectoris; Z95.5 Presence of coronary angioplasty implant and graft; I10 Essential (primary) hypertension; E78.00 Pure hypercholesterolemia, unspecified; E78.5 Hyperlipidemia, unspecified
CPT/HCPCS: 33286; 36415; 80048; J7040

== ENCOUNTER → 2021-04-13 07:18 | Outpatient (CLI) | payer MEDICARE, SELFPAY ==
[2020-12-26 10:59] VITALS: BMI 26.7
[2021-04-13 07:23] LABS: Bacteria 0 SEEN /hpf (None Seen); Mucous, Urine 0 SEEN /hpf (<or=2+); Red Blood Cells-Urine 0 SEEN /hpf (0-5); Squamous Epithelial Cells - UA 0 SEEN /hpf (0-5); White Blood Cells 0 SEEN /hpf (0-5)
[2021-04-13 08:09] LABS: Absolute Lymphocyte Count 1.42 X10^3/uL (0.83-4.51); Basophil# 0.02 X10^3/uL; Basophil% 0.3 % (0-1); Eosinophil# 0.24 X10^3/uL; Eosinophils% 3.8 % (0-5); Hematocrit 41.8 % (40-54); Hemoglobin 13.8 g/dL (13.0-16.5); Lymphocyte # 1.42 X10^3/ul (0.83-4.51); Lymphocyte % 22.6 % (19-41); Mean Corpuscular Hgb 29.4 pg (27.0-32.0); Mean Corpuscular Volume 89.1 fL (80-94); Mean Platelet Vol. 9.8 fl (6.2-12.0); Monocyte# 0.57 X10^3/uL; Monocyte% 9.1 % (0-10); NRBC Flagged by Analyzer 0 % (0-5); Neutrophil # 3.99 X10^3/uL (2.7-7.7); Neutrophil % 63.7 % (47-70); Platelet Count 224 K/mm3 (150-450); RBC Distribution Width CV 13.2 % (11.6-14.6); RBC Distribution Width SD 43.3 fl (35.1-43.9); Red Blood Count 4.69 M/mm3 (4.6-6.2); White Blood Count 6.3 K/mm3 (4.4-11.0)
[2021-04-13 08:18] LABS: Color, Urine Yellow (Yellow); Glucose, Dipstick Normal (Normal); Ketone-Dipstick Negative (Negative); Leukocyte Esterase-Dipstick Negative /ul (Negative); Nitrite-Dipstick Negative (Negative); Occult Blood-Urine Negative /ul (Negative); Protein-Dipstick Negative (Negative); Specific Gravity, Urine 1.015 (1.002-1.030); Urine Bilirubin Dipstick Negative (Negative); Urine Clarity Clear (Clear); Urine Urobilinogen Normal (Normal)
[2021-04-13 08:26] LABS: Microalbumin:Creatinine Ratio 19.2 mg/g CRE (<30 mg/g CRE)
[2021-04-13 08:36] LABS: ALB/GLOB Ratio 1.1 RATIO (0.9-2.4); AST(SGOT) 9 U/L (15-37); Alanine Aminotransfer ALT/SGPT 15 U/L (16-61); Albumin, Serum 3.8 g/dL (3.2-5.0); Alkaline Phosphatase 75 U/L (45-117); Anion Gap 7 (5-15); BUN 14 mg/dL (7-18); BUN/Creat Ratio 14.9 RATIO (10-20); Calcium,Total 8.9 mg/dL (8.5-10.1); Chloride 105 mmol/L (98-107); Cholesterol 113 mg/dL (200); Creatinine, Serum 0.94 mg/dL (0.70-1.30); EST Glomerular Filtration Rate 85 mL/min (>60); Est Glom Filt Rate - Afr Amer 102 mL/min (>60); Globulin 3.5 g/dL (2.2-4.2); Glucose 126 mg/dL (74-106); High Density Lipoprotein 44 mg/dL; Potassium 4.3 mmol/L (3.5-5.1); Protein, Total 7.3 g/dL (6.4-8.2); Sodium Level 138 mmol/L (136-145); Triglycerides 60 mg/dL; Very Low Density Lipoprotein 12 mg/dL (5-40)
[2021-04-13 08:43] LABS: Hemoglobin A1c 6.4 % (3.8-5.6)
[2021-04-13 08:49] LABS: Vitamin B12 516 pg/mL (211-911); Vitamin D,25 Hydroxy 58.5 ng/mL
== END ==
PROVIDERS: PCP Family Medicine; Referring Provider Family Medicine; Visit Provider Family Medicine
DX: E55.9 Vitamin D deficiency, unspecified (principal); I10 Essential (primary) hypertension; E11.9 Type 2 diabetes mellitus without complications; E78.5 Hyperlipidemia, unspecified
CPT/HCPCS: 80053; 80061; 81001; 82043; 82306; 82570; 82607; 83036; 85025

== ENCOUNTER 2021-12-01 07:46 | Outpatient (CLI) | payer MEDICARE, SELFPAY ==
[2021-12-01 08:16] LABS: Absolute Lymphocyte Count 1.36 X10^3/uL (0.83-4.51); Absolute Neutrophil Count 3.7 X10^3/uL (2.0-7.7); Basophil# 0.02 X10^3/uL; Basophil% 0.3 % (0-1); Eosinophil# 0.34 X10^3/uL; Eosinophils% 5.7 % (0-5); Hematocrit 42.5 % (40-54); Hemoglobin 14.7 g/dL (13.0-16.5); Lymphocyte # 1.36 X10^3/ul (0.83-4.51); Lymphocyte % 22.8 % (19-41); Mean Corp Hgb Conc 34.6 g/dL (32-36); Mean Corpuscular Hgb 30.6 pg (27.0-32.0); Mean Corpuscular Volume 88.4 fL (80-94); Mean Platelet Vol. 10.1 fl (6.2-12.0); Monocyte# 0.49 X10^3/uL; Monocyte% 8.2 % (0-10); NRBC Flagged by Analyzer 0 % (0-5); Neutrophil # 3.72 X10^3/uL (2.7-7.7); Neutrophil % 62.5 % (47-70); Platelet Count 210 K/mm3 (150-450); RBC Distribution Width CV 13.2 % (11.6-14.6); RBC Distribution Width SD 42.7 fl (35.1-43.9); Red Blood Count 4.81 M/mm3 (4.6-6.2)
[2021-12-01 08:35] LABS: Hemoglobin A1c 6.4 % (3.8-5.6)
[2021-12-01 08:47] LABS: Vitamin B12 302 pg/mL (211-911); Vitamin D,25 Hydroxy 38.1 ng/mL
[2021-12-01 08:48] LABS: ALB/GLOB Ratio 1.1 RATIO (0.9-2.4); AST(SGOT) 9 U/L (15-37); Alanine Aminotransfer ALT/SGPT 18 U/L (16-61); Albumin, Serum 3.9 g/dL (3.2-5.0); Alkaline Phosphatase 74 U/L (45-117); Anion Gap 3 (5-15); BUN 15 mg/dL (7-18); BUN/Creat Ratio 14.2 RATIO (10-20); Calcium,Total 9.5 mg/dL (8.5-10.1); Chloride 104 mmol/L (98-107); Cholesterol 121 mg/dL (200); Creatinine, Serum 1.06 mg/dL (0.70-1.30); EST Glomerular Filtration Rate 74 mL/min (>60); Est Glom Filt Rate - Afr Amer 89 mL/min (>60); Globulin 3.6 g/dL (2.2-4.2); Glucose 144 mg/dL (74-106); High Density Lipoprotein 54 mg/dL; Potassium 4.2 mmol/L (3.5-5.1); Protein, Total 7.5 g/dL (6.4-8.2); Sodium Level 138 mmol/L (136-145); Triglycerides 119 mg/dL; Very Low Density Lipoprotein 24 mg/dL (5-40)
[2021-12-01 11:14] LABS: Microalbumin,Random Urine 15.1 mg/L (NO RANGE EST.); Microalbumin:Creatinine Ratio 20.8 mg/g CRE (<30 mg/g CRE)
== END 2021-12-01 23:59 | disposition home or self-care (01) ==
LOC: LAB 07:48
PROVIDERS: PCP Family Medicine; Referring Provider Family Medicine; Visit Provider Family Medicine
DX: E55.9 Vitamin D deficiency, unspecified (principal); E11.9 Type 2 diabetes mellitus without complications; E53.8 Deficiency of other specified B group vitamins
CPT/HCPCS: 36415; 80053; 80061; 82043; 82306; 82570; 82607; 83036; 85025

== ENCOUNTER → 2022-04-03 | Outpatient (CLI) | payer MEDICARE, SELFPAY ==
[2022-04-03 09:14] LABS: Bacteria 0 SEEN /hpf (None Seen); Mucous, Urine 0 SEEN /hpf (<or=2+); Red Blood Cells-Urine 0 SEEN /hpf (0-5); Squamous Epithelial Cells - UA 0 SEEN /hpf (0-5); White Blood Cells 0 SEEN /hpf (0-5)
[2022-04-03 09:31] LABS: Absolute Lymphocyte Count 1.79 X10^3/uL (0.83-4.51); Absolute Neutrophil Count 5.4 X10^3/uL (2.0-7.7); Basophil# 0.02 X10^3/uL; Basophil% 0.2 % (0-1); Eosinophil# 0.46 X10^3/uL; Eosinophils% 5.4 % (0-5); Hematocrit 41.8 % (40-54); Lymphocyte # 1.79 X10^3/ul (0.83-4.51); Lymphocyte % 21.1 % (19-41); Mean Corp Hgb Conc 33.5 g/dL (32-36); Mean Corpuscular Hgb 29.6 pg (27.0-32.0); Mean Corpuscular Volume 88.4 fL (80-94); Monocyte# 0.75 X10^3/uL; Monocyte% 8.8 % (0-10); NRBC Flagged by Analyzer 0 % (0-5); Neutrophil # 5.43 X10^3/uL (2.7-7.7); Neutrophil % 63.9 % (47-70); Platelet Count 202 K/mm3 (150-450); RBC Distribution Width CV 13.2 % (11.6-14.6); RBC Distribution Width SD 42.7 fl (35.1-43.9); Red Blood Count 4.73 M/mm3 (4.6-6.2); White Blood Count 8.5 K/mm3 (4.4-11.0)
[2022-04-03 10:07] LABS: Hemoglobin A1c 6.5 % (3.8-5.6)
[2022-04-03 10:16] LABS: ALB/GLOB Ratio 1.1 RATIO (0.9-2.4); AST(SGOT) 10 U/L (15-37); Alanine Aminotransfer ALT/SGPT 21 U/L (16-61); Albumin, Serum 3.9 g/dL (3.2-5.0); Alkaline Phosphatase 79 U/L (45-117); Anion Gap 6 (5-15); BUN 13 mg/dL (7-18); BUN/Creat Ratio 13.3 RATIO (10-20); Chloride 104 mmol/L (98-107); Cholesterol 123 mg/dL (200); Creatinine, Serum 0.98 mg/dL (0.70-1.30); EST Glomerular Filtration Rate 81 mL/min (>60); Est Glom Filt Rate - Afr Amer 98 mL/min (>60); Globulin 3.4 g/dL (2.2-4.2); Glucose 137 mg/dL (74-106); High Density Lipoprotein 57 mg/dL; Protein, Total 7.3 g/dL (6.4-8.2); Sodium Level 136 mmol/L (136-145); Triglycerides 111 mg/dL; Very Low Density Lipoprotein 22 mg/dL (5-40)
[2022-04-03 10:57] LABS: Color, Urine Yellow (Yellow); Glucose, Dipstick Normal (Normal); Ketone-Dipstick Negative (Negative); Leukocyte Esterase-Dipstick Negative /ul (Negative); Nitrite-Dipstick Negative (Negative); Occult Blood-Urine Negative /ul (Negative); Protein-Dipstick Negative (Negative); Urine Bilirubin Dipstick Negative (Negative); Urine Clarity Clear (Clear); Urine Urobilinogen Normal (Normal)
[2022-04-03 11:11] LABS: Vitamin B12 382 pg/mL (211-911); Vitamin D,25 Hydroxy 46.6 ng/mL
[2022-04-03 11:27] LABS: Microalbumin,Random Urine 9.5 mg/L (NO RANGE EST.)
== END | disposition home or self-care (01) ==
LOC: LAB 09:09
PROVIDERS: PCP Family Medicine; Referring Provider Family Medicine; Visit Provider Family Medicine
DX: E55.9 Vitamin D deficiency, unspecified (principal); E11.69 Type 2 diabetes mellitus with other specified complication; E11.59 Type 2 diabetes mellitus with other circulatory complications; E53.8 Deficiency of other specified B group vitamins; Z72.0 Tobacco use
CPT/HCPCS: 36415; 80053; 80061; 81001; 82043; 82306; 82570; 82607; 83036; 85025

== ENCOUNTER 2022-05-09 08:40 | Outpatient (CLI) | payer MEDICARE, SELFPAY ==
--- NOTE | 2022-05-09 08:42 | CDU_ITS ---
Reason For Study: carotid stenosis Rt. Velocities/BP Lt. Velocities/BP Prox CCA 83.9/17.3 cm/sec. Prox CCA 74.9/17.3 cm/sec. Mid CCA 83.9/17.3 cm/sec. Mid CCA 179.5/27.9 cm/sec. Dist CCA 74.7/17.3 cm/sec. Dist CCA 226.7/24.8 cm/sec. Prox ICA 60.7/14.5 cm/sec. Prox ICA 108.3/22.5 cm/sec. Mid ICA 65.5/19.2 cm/sec. Mid ICA 215.8/57.8 cm/sec. Dist ICA 67.4/19.2 cm/sec. Dist ICA 98.3/24.2 cm/sec. Rt. ICA/CCA = .8. Lt. ICA/CCA = 1.2. Prox ECA 78.6/10.8 cm/sec. Prox ECA 132.1/11.5 cm/sec. Rt. Vert. 46.6/10.7 cm/sec. Lt. Vert. 42.4/8.7 cm/sec. Right Extracranial There is intimal thickening but no significant atherosclerotic plaque noted in the right common carotid artery. There is heterogeneous, irregular atherosclerotic plaque noted in the right internal carotid artery. There is heterogeneous, irregular atherosclerotic plaque noted in the right external carotid artery. Antegrade flow is noted in the right vertebral artery. Left Extracranial There is homogeneous, irregular atherosclerotic plaque noted in the left common carotid artery. There is heterogeneous, irregular atherosclerotic plaque noted in the left internal carotid artery. There is homogeneous, smooth atherosclerotic plaque noted in the left external carotid artery. Antegrade flow is noted in the left vertebral artery. Procedure Carotid Duplex 31922. This is a Carotid Duplex examination using B-mode, color flow and specral Doppler. The exam was diagnostic. Exam performed in department. VL/Carotid Duplex Ultrasound Interpretation Summary Mild (<50%) stenosis right extracranial internal carotid. Moderate (50-69%) tommy nosis left extracranial internal carotid. Patent and antegrade vertebrals bilaterally. Ordering Physician: Sampson De La Vega Performed By: Shravan King RVT
== END 2022-05-09 23:59 | disposition home or self-care (01) ==
LOC: CVS 08:41
PROVIDERS: PCP Family Medicine; Referring Provider Family Medicine; Visit Provider Family Medicine
DX: I65.23 Occlusion and stenosis of bilateral carotid arteries (principal)
CPT/HCPCS: 93880

== ENCOUNTER → 2022-10-02 | Outpatient (CLI) | payer MEDICARE, SELFPAY ==
[2022-10-02 14:22] LABS: PSA,Total - Annual Screen 0.35 ng/mL (0.00-4.00)
== END | disposition home or self-care (01) ==
LOC: LAB 10:02
PROVIDERS: PCP Family Medicine; Referring Provider Urology; Visit Provider Urology
DX: Z12.5 Encounter for screening for malignant neoplasm of prostate (principal)
CPT/HCPCS: 36415; 84153; G0103

== ENCOUNTER → 2022-11-06 | Outpatient (CLI) | payer MEDICARE, SELFPAY ==
[2022-11-06 07:42] LABS: Absolute Lymphocyte Count 1.42 X10^3/uL (0.83-4.51); Absolute Neutrophil Count 4.7 X10^3/uL (2.0-7.7); Basophil# 0.03 X10^3/uL; Basophil% 0.4 % (0-1); Eosinophils% 5.6 % (0-5); Hematocrit 41.5 % (40-54); Hemoglobin 13.7 g/dL (13.0-16.5); Lymphocyte # 1.42 X10^3/ul (0.83-4.51); Lymphocyte % 19.8 % (19-41); Mean Corpuscular Hgb 28.9 pg (27.0-32.0); Mean Corpuscular Volume 87.6 fL (80-94); Mean Platelet Vol. 9.8 fl (6.2-12.0); Monocyte% 8.4 % (0-10); NRBC Flagged by Analyzer 0 % (0-5); Neutrophil % 65.4 % (47-70); Platelet Count 220 K/mm3 (150-450); RBC Distribution Width CV 12.7 % (11.6-14.6); Red Blood Count 4.74 M/mm3 (4.6-6.2); White Blood Count 7.2 K/mm3 (4.4-11.0)
[2022-11-06 08:08] LABS: Hemoglobin A1c 6.8 % (3.8-5.6)
[2022-11-06 08:09] LABS: ALB/GLOB Ratio 1.1 RATIO (0.9-2.4); AST(SGOT) 8 U/L (15-37); Alanine Aminotransfer ALT/SGPT 17 U/L (16-61); Albumin, Serum 3.9 g/dL (3.2-5.0); Alkaline Phosphatase 61 U/L (45-117); Anion Gap 5 (5-15); BUN 16 mg/dL (7-18); Calcium,Total 9.1 mg/dL (8.5-10.1); Chloride 104 mmol/L (98-107); Cholesterol 117 mg/dL (200); Creatinine, Serum 0.94 mg/dL (0.70-1.30); EST Glomerular Filtration Rate 84 mL/min (>60); Est Glom Filt Rate - Afr Amer 102 mL/min (>60); Globulin 3.4 g/dL (2.2-4.2); Glucose 167 mg/dL (74-106); High Density Lipoprotein 47 mg/dL; Potassium 4.2 mmol/L (3.5-5.1); Protein, Total 7.3 g/dL (6.4-8.2); Sodium Level 137 mmol/L (136-145); Triglycerides 88 mg/dL; Very Low Density Lipoprotein 18 mg/dL (5-40)
[2022-11-06 08:15] LABS: Vitamin B12 611 pg/mL (211-911); Vitamin D,25 Hydroxy 42.2 ng/mL
[2022-11-06 09:04] LABS: Microalbumin,Random Urine 16.3 mg/L (NO RANGE EST.)
== END | disposition home or self-care (01) ==
LOC: LAB 06:42
PROVIDERS: PCP Family Medicine; Referring Provider Family Medicine; Visit Provider Family Medicine
DX: E11.9 Type 2 diabetes mellitus without complications (principal); E53.8 Deficiency of other specified B group vitamins; E55.9 Vitamin D deficiency, unspecified
CPT/HCPCS: 36415; 80053; 80061; 82043; 82306; 82570; 82607; 83036; 85025

== ENCOUNTER → 2023-03-05 | Outpatient (CLI) | payer MEDICARE, SELFPAY ==
[2023-03-05 09:23] LABS: Absolute Lymphocyte Count 1.56 X10^3/uL (0.83-4.51); Absolute Neutrophil Count 5.2 X10^3/uL (2.0-7.7); Basophil# 0.03 X10^3/uL; Basophil% 0.4 % (0-1); Eosinophil# 0.39 X10^3/uL; Hematocrit 43.7 % (40-54); Hemoglobin 14.7 g/dL (13.0-16.5); Lymphocyte # 1.56 X10^3/ul (0.83-4.51); Mean Corp Hgb Conc 33.6 g/dL (32-36); Mean Corpuscular Hgb 29.8 pg (27.0-32.0); Mean Corpuscular Volume 88.6 fL (80-94); Mean Platelet Vol. 10.2 fl (6.2-12.0); Monocyte# 0.63 X10^3/uL; Monocyte% 8.1 % (0-10); NRBC Flagged by Analyzer 0 % (0-5); Neutrophil # 5.15 X10^3/uL (2.7-7.7); Neutrophil % 66.1 % (47-70); Platelet Count 226 K/mm3 (150-450); RBC Distribution Width CV 13.2 % (11.6-14.6); RBC Distribution Width SD 43.3 fl (35.1-43.9); Red Blood Count 4.93 M/mm3 (4.6-6.2); White Blood Count 7.8 K/mm3 (4.4-11.0)
[2023-03-05 09:46] LABS: Hemoglobin A1c 6.9 % (3.8-5.6)
[2023-03-05 09:54] LABS: ALB/GLOB Ratio 1.2 RATIO (0.9-2.4); AST(SGOT) 14 U/L (15-37); Alanine Aminotransfer ALT/SGPT 28 U/L (16-61); Albumin, Serum 4.2 g/dL (3.2-5.0); Alkaline Phosphatase 80 U/L (45-117); Anion Gap 6 (5-15); BUN 13 mg/dL (7-18); BUN/Creat Ratio 13.6 RATIO (10-20); Calcium,Total 9.6 mg/dL (8.5-10.1); Chloride 106 mmol/L (98-107); Cholesterol 122 mg/dL (200); Creatinine, Serum 0.96 mg/dL (0.70-1.30); EST Glomerular Filtration Rate 83 mL/min (>60); Est Glom Filt Rate - Afr Amer 100 mL/min (>60); Globulin 3.4 g/dL (2.2-4.2); Glucose 188 mg/dL (74-106); High Density Lipoprotein 59 mg/dL; Potassium 4.2 mmol/L (3.5-5.1); Protein, Total 7.6 g/dL (6.4-8.2); Sodium Level 139 mmol/L (136-145); Triglycerides 82 mg/dL; Very Low Density Lipoprotein 16 mg/dL (5-40)
[2023-03-05 09:55] LABS: Vitamin B12 603 pg/mL (211-911); Vitamin D,25 Hydroxy 54.5 ng/mL
[2023-03-05 10:53] LABS: Microalbumin,Random Urine 7.6 mg/L (NO RANGE EST.); Microalbumin:Creatinine Ratio 15.5 mg/g CRE (<30 mg/g CRE)
== END | disposition home or self-care (01) ==
PROVIDERS: PCP Family Medicine; Referring Provider Family Medicine; Visit Provider Family Medicine
DX: E11.9 Type 2 diabetes mellitus without complications (principal); E55.9 Vitamin D deficiency, unspecified; E53.8 Deficiency of other specified B group vitamins
CPT/HCPCS: 36415; 80053; 80061; 82043; 82306; 82570; 82607; 83036; 85025

== ENCOUNTER → 2023-06-11 | Outpatient (CLI) | payer MEDICARE, SELFPAY ==
[2023-06-11 09:45] LABS: Bacteria 0 SEEN /hpf (None Seen); Mucous, Urine 0 SEEN /hpf (<or=2+); Red Blood Cells-Urine 0 SEEN /hpf (0-5); Squamous Epithelial Cells - UA 0 SEEN /hpf (0-5); White Blood Cells 0 SEEN /hpf (0-5)
[2023-06-11 10:15] LABS: Absolute Neutrophil Count 4.8 X10^3/uL (2.0-7.7); Basophil# 0.05 X10^3/uL; Basophil% 0.7 % (0-1); Eosinophil# 0.37 X10^3/uL; Eosinophils% 4.9 % (0-5); Hematocrit 41.7 % (40-54); Lymphocyte % 22.6 % (19-41); Mean Corp Hgb Conc 33.6 g/dL (32-36); Mean Corpuscular Hgb 29.7 pg (27.0-32.0); Mean Corpuscular Volume 88.3 fL (80-94); Mean Platelet Vol. 9.9 fl (6.2-12.0); Monocyte# 0.59 X10^3/uL; Monocyte% 7.9 % (0-10); NRBC Flagged by Analyzer 0 % (0-5); Neutrophil # 4.78 X10^3/uL (2.7-7.7); Neutrophil % 63.6 % (47-70); Platelet Count 207 K/mm3 (150-450); RBC Distribution Width CV 13.3 % (11.6-14.6); RBC Distribution Width SD 43.5 fl (35.1-43.9); Red Blood Count 4.72 M/mm3 (4.6-6.2); White Blood Count 7.5 K/mm3 (4.4-11.0)
[2023-06-11 10:52] LABS: Vitamin B12 704 pg/mL (211-911); Vitamin D,25 Hydroxy 42.1 ng/mL
[2023-06-11 10:56] LABS: Hemoglobin A1c 6.7 % (3.8-5.6)
[2023-06-11 11:17] LABS: Color, Urine Yellow (Yellow); Glucose, Dipstick Normal (Normal); Ketone-Dipstick Negative (Negative); Leukocyte Esterase-Dipstick Negative /ul (Negative); Nitrite-Dipstick Negative (Negative); Occult Blood-Urine Negative /ul (Negative); Protein-Dipstick Negative (Negative); Specific Gravity, Urine 1.015 (1.002-1.030); Urine Bilirubin Dipstick Negative (Negative); Urine Clarity Clear (Clear); Urine Urobilinogen Normal (Normal)
[2023-06-11 11:20] LABS: ALB/GLOB Ratio 1.1 RATIO (0.9-2.4); AST(SGOT) 9 U/L (15-37); Alanine Aminotransfer ALT/SGPT 19 U/L (16-61); Albumin, Serum 3.8 g/dL (3.2-5.0); Alkaline Phosphatase 70 U/L (45-117); Anion Gap 7 (5-15); BUN 14 mg/dL (7-18); BUN/Creat Ratio 14.7 RATIO (10-20); Chloride 105 mmol/L (98-107); Cholesterol 113 mg/dL (200); Creatinine, Serum 0.95 mg/dL (0.70-1.30); EST Glomerular Filtration Rate 83 mL/min (>60); Est Glom Filt Rate - Afr Amer 100 mL/min (>60); Globulin 3.5 g/dL (2.2-4.2); Glucose 144 mg/dL (74-106); High Density Lipoprotein 47 mg/dL; Potassium 4.3 mmol/L (3.5-5.1); Protein, Total 7.3 g/dL (6.4-8.2); Sodium Level 137 mmol/L (136-145); Thyroid Stim Hormone (TSH) 1.65 uIU/mL (0.358-3.74); Triglycerides 92 mg/dL; Very Low Density Lipoprotein 18 mg/dL (5-40)
[2023-06-11 12:08] LABS: Microalbumin,Random Urine 9.6 mg/L (NO RANGE EST.); Microalbumin:Creatinine Ratio 17.4 mg/g CRE (<30 mg/g CRE)
== END | disposition home or self-care (01) ==
LOC: LAB 09:39
PROVIDERS: PCP Family Medicine; Referring Provider Family Medicine; Visit Provider Family Medicine
DX: E55.9 Vitamin D deficiency, unspecified (principal); E11.9 Type 2 diabetes mellitus without complications; E53.8 Deficiency of other specified B group vitamins
CPT/HCPCS: 36415; 80053; 80061; 81001; 82043; 82306; 82570; 82607; 83036; 84443; 85025

== ENCOUNTER → 2023-06-27 | Outpatient (CLI) | payer MEDICARE, SELFPAY ==
--- NOTE | 2023-06-27 09:46 | CDU_ITS ---
Reason For Study: Carotid stenosis Rt. Velocities/BP Lt. Velocities/BP Prox CCA 83.4/15.4 cm/sec. Prox CCA 82.5/16.3 cm/sec. Mid CCA 74/13.5 cm/sec. Mid CCA 182.9/29.2 cm/sec. Dist CCA 71.1/14.5 cm/sec. Dist CCA 197.8/26.7 cm/sec. Prox ICA 37.8/10.7 cm/sec. Prox ICA 102.8/24.3 cm/sec. Mid ICA 70.9/20.3 cm/sec. Mid ICA 233.7/68.9 cm/sec. Dist ICA 75.3/22.9 cm/sec. Dist ICA 90/22.5 cm/sec. Rt. ICA/CCA = 1.03. Lt. ICA/CCA = 1.28. Prox ECA 93.8/13.5 cm/sec. Prox ECA 141.2/13.8 cm/sec. Rt. Vert. 39.4/9.5 cm/sec. Lt. Vert. 41.3/10.7 cm/sec. Right Extracranial There is intimal thickening but no significant atherosclerotic plaque noted in the right common carotid artery. There is heterogeneous, irregular atherosclerotic plaque noted in the right internal carotid artery. There is heterogeneous, irregular atherosclerotic plaque noted in the right external carotid artery. Antegrade flow is noted in the right vertebral artery. Left Extracranial There is homogeneous, irregular atherosclerotic plaque noted in the left common carotid artery. There is heterogeneous, irregular atherosclerotic plaque noted in the left internal carotid artery. There is heterogeneous, irregular atherosclerotic plaque noted in the left external carotid artery. Antegrade flow is noted in the left vertebral artery. Procedure Carotid Duplex 30939. This is a Carotid Duplex examination using B-mode, color flow and specral Doppler. Exam performed in department. VL/Carotid Duplex Ultrasound Interpretation Summary Mild (<50%) stenosis right extracranial internal carotid. Severe (>70%) stenosis left extracranial internal carotid. Patent and antegrade vertebrals bilaterally. Ordering Physician: Sampson De La Vega Referring Physician: Sampson De La Vega Performed By: Therese Hough RVT
== END | disposition home or self-care (01) ==
PROVIDERS: PCP Family Medicine; Referring Provider Family Medicine; Visit Provider Family Medicine
DX: I65.23 Occlusion and stenosis of bilateral carotid arteries (principal)
CPT/HCPCS: 93880

== ENCOUNTER 2023-08-07 12:14 | Observation (INO) | payer MEDICARE, SELFPAY ==
--- NOTE | 2023-08-01 10:05 | EKG12_ITS ---
Test Reason : PRE OP Blood Pressure : / mmHG Vent. Rate : 066 BPM Atrial Rate : 066 BPM P-R Int : 142 ms QRS Dur : 096 ms QT Int : 388 ms P-R-T Axes : 066 049 060 degrees QTc Int : 406 ms Normal sinus rhythm Normal ECG Confirmed by MOSES PACE, CAL ([id number]), market editor PATRICK JARQUIN ([id number]) on 08/05/2023 2:22:58 PM Referred By: Ross Ochoa Confirmed By:CAL LOPES MD
[2023-08-01 11:10] LABS: Hemoglobin A1c 6.6 % (3.8-5.6)
[2023-08-07] VITALS (12 sets, daily range): BP systolic 96–142; BP diastolic 53–78; PULSE 57–65; RESP 12–18; TEMP 36.4–37.1; O2SAT 93–100; BMI 24.3
[2023-08-07] MEDS: Lactated Ringers 1,000 ML 15 ML IV (10:23)
[2023-08-07 10:47] LABS: Bedside Glucose 135 mg/dL (74-106)
--- NOTE | 2023-08-07 11:55 | PROS_PTH ---
PATIENT: JANETT WALLIS LOC: MS3 U#:[id number] AGE/SX: 73/M ROOM: [facility] RE08/07/[address]: Dr. Ross Ochoa MD : 1950 BED: 1 DIS: 08/08/2023 SPEC #: [id number] RECD: 08/07/23 13:53 STATUS: MAIRA RELyndsay #: [id number] JOSUE: 08/07/23 11:[address]: Ross Ochoa DEPT: SURGICAL PATHOLOGY RECD BY: Shy Liriano ENTERED: 08/08/23 09:55 SP TYPE: TURP OTHR DR: Dr. Sampson De La Vega MD Tissues: Prostate, NOS Procedures: Surgery Specimen Level IV HEADER OPERATION: Cysto, dilation of bulbar stricture, transurethral resection PRE-OP DIAGNOSIS: BPH with obstruction TISSUE SUBMITTED: Prostate tissue MICROSCOPIC DIAGNOSIS Prostate tissue, transurethral resection: Benign prostatic hyperplasia, glandular and stromal type. SJ:kristine 08/09/2023 MICROSCOPIC DESCRIPTION Slides are reviewed. GROSS DESCRIPTION Received is one container labeled with the patient's name and designated prostate tissue. The specimen consists of multiple irregular fragments of pink-garcía, rubbery, soft tissue that in aggregate weigh 2 gm and measure in aggregate 3.0 x 3.0 x 0.4 cm. The entire specimen is submitted in two cassettes. / AM:kristine 08/08/2023 TC:5 CPT: 16517
[2023-08-07] MEDS: Cefazolin 2 GM in 0.9% Normal Saline (100mL Bag) 100 ML IV (12:15)
--- NOTE | 2023-08-07 12:17 | HP.PCM_ITS ---
HPI - General General Date of Service: 08/07/23 Chief Complaint: BPH with obstruction HPI Narrative JANETT WALLIS, is a 73 M who presents for a transurethral resection of the prostate he has BPH with a significant outlet obstruction [facility] Medical History (Updated 07/31/23 @ 08:16 by Georgie Marquez) Alcohol use Atherosclerosis of [place] coronary artery of [place] heart without angina pect jaclyn Blackout BPH with urinary obstruction Cancer Cardiology follow-up encounter Chronic cough Diabetes Dietary restriction Essential hypertension Headache High cholesterol History of echocardiogram History of IBS History of stress test Hyperlipidemia Hypertension Left carotid artery stenosis Leg cramps Old inferior wall myocardial infarction (1994) Prostate disease Restless legs Smoker Status post placement of implantable loop recorder Syncope Wears dentures Wears glasses Wears partial dentures Home Medications metoprolol succinate 25 mg tablet,extended release 24 hr 25 mg PO DAILY 90 days #90 tabs 12/25/18 [History Last Taken 08/07/23] rosuvastatin 10 mg tablet 10 mg PO DAILY 12/25/18 [History Last Taken Unknown] aspirin 81 mg tablet,delayed release (Adult Low Dose Aspirin) 81 mg PO DAILY 09/03/19 [History Last Taken 07/30/23] coenzyme Q10 100 mg capsule (Co Q-10) 100 mg PO DAILY 09/03/19 [History Last Taken Unknown] clopidogrel 75 mg tablet (Plavix) 75 mg PO DAILY 03/08/20 [History Last Taken 07/30/23] cholecalciferol (vitamin D3) 25 mcg (1,000 unit) capsule 25 mcg PO DAILY 12/20/20 [History Last Taken Unknown] cyanocobalamin (vitamin B-12) 100 mcg tablet (Vitamin B-12) 100 mcg PO .3xweek 12/20/20 [History Last Taken Unknown] metformin 500 mg tablet 1,000 mg PO BID 12/20/20 [History Last Taken Unknown] amlodipine 10 mg tablet 10 mg PO DAILY 01/26/22 [History Last Taken 08/07/23] nitroglycerin 0.4 mg sublingual tablet 0.4 mg sublingual Q5M PRN Chest Pain #25 tabs 05/09/23 [Rx Last Taken Unknown] Allergy/AdvReac Type Severity Reaction Status Date / Time atorvastatin [From Lipitor] Allergy Severe Muscle Verified 08/07/23 10:19 aches simvastatin [From Zocor] AdvReac Severe Hives Verified 08/07/23 10:19 Family History Father CAD (coronary artery disease) Hx CABG Diabetes Myocardial infarction Mother Breast cancer CVA (cerebral vascular accident) Sister Cancer Pancreatic cancer Diabetes Brother Myocardial infarction, Onset Age: 54 Other Family history of CVA Surgical History Encounter for loop recorder at end of battery life (12/27/20) History of appendectomy History of coronary artery stent placement (03/14/04) History of left heart catheterization (02/2001) History of loop recorder (10/06/18) History of tonsillectomy History of transurethral resection of prostate (11/05/18) Hx of transurethral destruction of bladder lesion (11/05/18) Social History Smoking Status: Current every day smoker tobacco type: cigarettes alcohol intake: current alcohol intake frequency: a few times a week Alcohol type: beer and hard liquor substance use type: does not use caffeine: Yes Type: coffee Number of servings: 5 what type of physical activity do you participate in: none seatbelt use: always do you feel safe at home: Yes Vital Signs Vital Signs Vital Signs: 08/07/23 10:19 08/07/23 10:19 Temperature 98.3 F Temperature Source Temporal Pulse Rate 65 Respiratory Rate 18 Respiratory Pattern Normal Blood Pressure 131/70 H Blood Pressure Mean 90 Blood Pressure Source Monitor Blood Pressure Position Semi-Fowlers Blood Pressure Location Right Arm Pulse Ox 100 Oxygen Delivery Method Room Air Weight Weight: 77 kg Body Mass Index (BMI) 24.3 Results Lab / Micro Data Labs: Laboratory Results - last 24 hr 08/07/23 10:26: POC Glucose 135 H
--- NOTE | 2023-08-07 12:17 | DCINST_ITS ---
Discharge Instructions Diet Discharge Diet: No restrictions Activity Discharge Activity: Return to Normal Activity and May Not Drive (while taking narcotic pain medications.) Dressing / Incision Call your doctor if you observe: Fever of 101 or Higher Follow Up Care Please Follow Up With: Ross Ochoa MD When: Call [phone] for an appointment Test Results: Test results from this visit will be discussed in further detail at your follow- up appointment, if applicable. Discharge Plan Admission Primary Reason for Your Visit: Transurethral section of prostate Attending Provider: Ross Ochoa Primary Care Provider: Sampson De La Vega Discharge Orders/Prescriptions Prescriptions: Continued metoprolol succinate 25 mg tablet extended release 24 hr 25 mg PO DAILY 90 Days Qty: 90 Patient Comments: 2 tabs qam, 2 tabs qpm metformin 500 mg tablet 1,000 mg PO BID rosuvastatin 10 mg tablet 10 mg PO DAILY aspirin [Adult Low Dose Aspirin] 81 mg tablet,delayed release (DR/EC) 81 mg PO DAILY coenzyme Q10 [Co Q-10] 100 mg capsule 100 mg PO DAILY cyanocobalamin (vitamin B-12) [Vitamin B-12] 100 mcg tablet 100 mcg PO .3xweek cholecalciferol (vitamin D3) 25 mcg (1,000 unit) capsule 25 mcg PO DAILY amlodipine 10 mg tablet 10 mg PO DAILY nitroglycerin 0.4 mg tablet, sublingual 0.4 mg SUBLINGUAL Q5M PRN (Reason: Chest Pain) Qty: 25 3RF Held clopidogrel [Plavix] 75 mg tablet 75 mg PO DAILY Hold Instructions: Resume on 08/21/23. Discontinued tamsulosin 0.4 mg capsule 0.4 mg PO BID 30 Days Qty: 30 Referrals / Follow Up: Ross Ochoa MD [Med Staff - Active Staff] - Sampson De La Vega MD [Primary Care Provider] - Disposition Disposition (needs filled in before D/C Order can be placed): Home, Self Care
--- NOTE | 2023-08-07 12:45 | OP.PCM_ITS ---
Report of Operation Date of Procedure: 08/07/23 Pre-Operative Diagnosis: Urethral stricture and BPH with regrowth Surgery/Procedure Performed:: Same dilation of urethral stricture and transurethral resection of prostate for regrowth Description of Surgical Findings:: Patient was taken back to the operating room at a smooth induction of general anesthesia he was placed in dorsolithotomy position. The penis and testicles were prepped and draped in usual fashion when the bladder with a 21 Hungarian rigid cystourethroscope upon entering the urethra I went down the pendulous urethra in the bulbar urethra and then encountered a pinpoint urethral stricture in the bul bar urethra this looks like one of the major points of obstruction I then removed the cystoscope and then using the Doddridge sounds I very gently dilated the stricture from 16 Hungarian to 22 Hungarian I then went back in with a 22 Hungarian continuous-flow Olympus resectoscope was able to go to the area of the stricture past the sphincter and into the prostatic channel there was a minimal amount of regrowth in the edges of the channel I then switched over to the resectoscope and resected the channel at the 6:00 and 9:00 3:00 and 12 o'clock position had a nice open channel I did a flow test he did not really have the greatest flow but when I looked looked back inside of the scope he really had no other residual tissue to resect he does have a can of a week distended atonic looking bladder. I think the main problem obstruction was a bulbar urethral stricture this was dilated I then placed a 22 Hungarian catheter into the bladder with continuous irrigation we will keep him overnight for irrigation and we will take out the catheter tomorrow for voiding trial. Surgeon: Ross Ochoa Type of Anesthesia: General Drains: 22fr 3 way Estimated Blood Loss (mL): 0 Admit VTE Documentation VTE Present on Admission: No VTE Mechan Device Prophylaxis: SCD's VTE Pharm Prophylaxis ordered?: No
[2023-08-07] MEDS: Ketorolac 15 MG/ML Vial IV (13:25)
[2023-08-07 14:08] LABS: Bedside Glucose 127 mg/dL (74-106)
[2023-08-07] MEDS: 0.9% Normal Saline (1000mL) 1,000 ML 125 ML IV (18:26)
[2023-08-07] MEDS: Ciprofloxacin 400 MG/200 ML BAG 200 MG IV (20:52)
[2023-08-07] MEDS: Acetaminophen 325 MG Tablet PO (20:57)
[2023-08-07] MEDS: Docusate Sodium 100 MG Capsule 200 MG PO (20:58)
[2023-08-08] MEDS: 0.9% Normal Saline (1000mL) 1,000 ML 125 ML IV ×2 (02:18→10:23)
[2023-08-08 02:19] VITALS: BP 125/72; PULSE 62; RESP 16; TEMP 37; O2SAT 94
[2023-08-08 06:08] VITALS: BP 138/75; PULSE 69; RESP 16; TEMP 36.8; O2SAT 93
--- NOTE | 2023-08-08 07:36 | PCM.PN.GU ---
Subjective Subjective Status post TURP we can remove the catheter today he can go home after he voids. Objective Data Objective Data Vital Signs: Vital Signs Temp Pulse Resp BP Pulse Ox O2 Del Method 98.2 F 69 16 138/75 H 93 Room Air 08/08/23 06:08 08/08/23 06:08 08/08/23 06:08 08/08/23 06:08 08/08/23 06:08 08/08/23 06:08 Oxygen Delivery Method Room Air Weight: 77 kg Body Mass Index (BMI) 24.3 Intake & Output: Intake and Output for Last 24 Hours 08/06/23 08/07/23 08/08/23 23:59 23:59 23:59 Intake Total 430.75 / 630.75 1383.33 / 1383.33 Output Total 575 / 575 Balance -144.25 / 55.75 1383.33 / 1383.33 Lab / Micro Data Labs: Laboratory Results - last 24 hr 08/07/23 10:26: POC Glucose 135 H 08/07/23 13:50: POC Glucose 127 H
[2023-08-08 08:30] VITALS: BP 140/72; PULSE 67; RESP 16; TEMP 37; O2SAT 95
[2023-08-08 09:24] VITALS: O2SAT 96
[2023-08-08] MEDS: Docusate Sodium 100 MG Capsule 200 MG PO (10:16)
[2023-08-08 10:17] VITALS: PULSE 69
[2023-08-08] MEDS: amLODIPine 10 MG Tablet PO (10:17)
[2023-08-08] MEDS: Metoprolol(XL)Succ 25 MG Tablet PO (10:17)
[2023-08-08] MEDS: metFORMIN HCl 1,000 MG Tablet 1000 MG PO (10:17)
[2023-08-08] MEDS: Ciprofloxacin 400 MG/200 ML BAG 200 MG IV (10:21)
--- NOTE | 2023-08-08 11:28 | CASEMGMT ---
Pt. has order for discharge. RN CM in to room to discuss needs at discharge. Pt's denies home-going needs, anxious for D/C, awaiting ability to void. Encouraged pt. to let us know if he has any additional questions/concerns.
[2023-08-08 14:49] VITALS: BP 134/79; PULSE 66; RESP 16; TEMP 36.4; O2SAT 96
== END 2023-08-08 15:07 | disposition home or self-care (01) ==
LOC: AC 12:47 → SDC 17:52 → MS3 17:52
PROVIDERS: Anesthesiology; Admitting Provider Urology; PCP Family Medicine; Referring Provider Urology; Visit Provider Urology
PROC: 0VT08ZZ Resection of Prostate, Via Natural or Artificial Opening Endoscopic (ICD-10-PCS; CPT 52601; principal; 2023-08-07 11:45)
DX: N40.1 Benign prostatic hyperplasia with lower urinary tract symptoms (principal); E11.9 Type 2 diabetes mellitus without complications; I25.10 Atherosclerotic heart disease of native coronary artery without angina pectoris; F17.210 Nicotine dependence, cigarettes, uncomplicated; N35.919 Unspecified urethral stricture, male, unspecified site; N13.8 Other obstructive and reflux uropathy; R35.1 Nocturia; Z79.02 Long term (current) use of antithrombotics/antiplatelets; Z79.82 Long term (current) use of aspirin; Z79.899 Other long term (current) drug therapy; Z79.84 Long term (current) use of oral hypoglycemic drugs; E78.5 Hyperlipidemia, unspecified; I10 Essential (primary) hypertension
CPT/HCPCS: 52630; 52281; 00914; 36415; 82962; 83036; 88305; 93005; 94668; 96361; 96365; 96366; 99221; 99252; 99406; J7030; J7120; G0378; G0463; J0744; J2405

== ENCOUNTER → 2023-10-09 | Outpatient (CLI) | payer MEDICARE, SELFPAY ==
[2023-10-09 09:08] LABS: Absolute Lymphocyte Count 2.28 X10^3/uL (0.83-4.51); Absolute Neutrophil Count 4.8 X10^3/uL (2.0-7.7); Basophil# 0.06 X10^3/uL; Basophil% 0.7 % (0-1); Eosinophil# 0.38 X10^3/uL; Eosinophils% 4.6 % (0-5); Hematocrit 44.9 % (40-54); Hemoglobin 14.6 g/dL (13.0-16.5); Lymphocyte # 2.28 X10^3/ul (0.83-4.51); Lymphocyte % 27.5 % (19-41); Mean Corp Hgb Conc 32.5 g/dL (32-36); Mean Corpuscular Hgb 28.6 pg (27.0-32.0); Mean Corpuscular Volume 87.9 fL (80-94); Mean Platelet Vol. 9.9 fl (6.2-12.0); Monocyte# 0.77 X10^3/uL; Monocyte% 9.3 % (0-10); NRBC Flagged by Analyzer 0 % (0-5); Neutrophil # 4.77 X10^3/uL (2.7-7.7); Neutrophil % 57.4 % (47-70); Platelet Count 233 K/mm3 (150-450); RBC Distribution Width CV 13.3 % (11.6-14.6); RBC Distribution Width SD 42.9 fl (35.1-43.9); Red Blood Count 5.11 M/mm3 (4.6-6.2); White Blood Count 8.3 K/mm3 (4.4-11.0)
[2023-10-09 09:32] LABS: Vitamin B12 1238 pg/mL (211-911); Vitamin D,25 Hydroxy 48.9 ng/mL
[2023-10-09 09:43] LABS: ALB/GLOB Ratio 1.1 RATIO (0.9-2.4); AST(SGOT) 13 U/L (15-37); Alanine Aminotransfer ALT/SGPT 19 U/L (16-61); Alkaline Phosphatase 77 U/L (45-117); Anion Gap 3 (5-15); BUN 15 mg/dL (7-18); BUN/Creat Ratio 14.9 RATIO (10-20); Chloride 107 mmol/L (98-107); Cholesterol 138 mg/dL (200); Creatinine, Serum 1.01 mg/dL (0.70-1.30); EST Glomerular Filtration Rate 77 mL/min (>60); Est Glom Filt Rate - Afr Amer 94 mL/min (>60); Globulin 3.6 g/dL (2.2-4.2); Glucose 169 mg/dL (74-106); High Density Lipoprotein 53 mg/dL; Potassium 4.5 mmol/L (3.5-5.1); Protein, Total 7.6 g/dL (6.4-8.2); Sodium Level 137 mmol/L (136-145); Triglycerides 89 mg/dL; Very Low Density Lipoprotein 18 mg/dL (5-40)
[2023-10-09 09:51] LABS: Hemoglobin A1c 6.6 % (3.8-5.6)
[2023-10-09 11:41] LABS: Microalbumin,Random Urine 12.9 mg/L (NO RANGE EST.); Microalbumin:Creatinine Ratio 27.3 mg/g CRE (<30 mg/g CRE)
== END | disposition home or self-care (01) ==
LOC: LAB 08:33
PROVIDERS: PCP Family Medicine; Referring Provider Family Medicine; Visit Provider Family Medicine
DX: E11.9 Type 2 diabetes mellitus without complications (principal); E53.8 Deficiency of other specified B group vitamins; E55.9 Vitamin D deficiency, unspecified
CPT/HCPCS: 36415; 80053; 80061; 82043; 82306; 82570; 82607; 83036; 85025

== ENCOUNTER → 2023-12-20 | Outpatient (CLI) | payer MEDICARE, SELFPAY ==
--- NOTE | 2023-12-20 08:43 | CDU_ITS ---
Reason For Study: LEFT ICA STENOSIS Rt. Velocities/BP Lt. Velocities/BP Prox CCA 99.0/16.7 cm/sec. Prox CCA 64.7/12.0 cm/sec. Mid CCA 85.5/16.7 cm/sec. Mid CCA 111.7/19.4 cm/sec. Dist CCA 78.1/15.5 cm/sec. Dist CCA 181.4/13.3 cm/sec. Prox ICA 49.9/10.6 cm/sec. Prox ICA 175.2/37.8 cm/sec. Mid ICA 55.1/11.5 cm/sec. Mid ICA 135.0/19.9 cm/sec. Dist ICA 65.8/17.6 cm/sec. Dist ICA 51.9/15.6 cm/sec. Rt. ICA/CCA = 65.8/85.5=0.8. Lt. ICA/CCA = 175.2/111.7=1.0. Prox ECA 76.9/5.6 cm/sec. Prox ECA 165.5/8.4 cm/sec. Rt. Vert. 40.0/12.1 cm/sec. Lt. Vert. 57.4/11.2 cm/sec. Right Extracranial There is intimal thickening but no significant atherosclerotic plaque noted in the right common carotid artery. There is heterogeneous, smooth atherosclerotic plaque noted in the right internal carotid artery. There is heterogeneous, smooth atherosclerotic plaque noted in the right external carotid artery. Antegrade flow is noted in the right vertebral artery. Left Extracranial There is heterogeneous, irregular atherosclerotic plaque noted in the left common carotid artery. There is heterogeneous, irregular atherosclerotic plaque noted in the left internal carotid artery. There is heterogeneous, irregular atherosclerotic plaque noted in the left external carotid artery. Antegrade flow is noted in the left vertebral artery. Procedure Carotid Duplex [id number]. This is a Carotid Duplex examination using B-mode, color flow and specral Doppler. Exam performed in department. VL/Carotid Duplex Ultrasound Interpretation Summary Mild (<50%) stenosis right extracranial internal carotid. Moderate (50-69%) stenosis left extracranial internal carotid. Patent and antegrade vertebrals bilaterally. Ordering Physician: Aretha Mandujano Referring Physician: Sampson De La Vega Performed By: Kimmie Porras RDCS, RVT
== END | disposition home or self-care (01) ==
LOC: CVS 08:42
PROVIDERS: PCP Family Medicine; Referring Provider Physician Assistant; Visit Provider Physician Assistant
DX: I65.22 Occlusion and stenosis of left carotid artery (principal)
CPT/HCPCS: 93880

== ENCOUNTER → 2023-12-23 | Outpatient (CLI) | payer MEDICARE, SELFPAY ==
[2023-12-23 13:52] LABS: PSA,Total - Annual Screen 0.29 ng/mL (0.00-4.00)
== END | disposition home or self-care (01) ==
LOC: LAB 13:17
PROVIDERS: PCP Family Medicine; Referring Provider Nurse Practitioner; Visit Provider Nurse Practitioner
DX: Z12.5 Encounter for screening for malignant neoplasm of prostate (principal)
CPT/HCPCS: 36415; 84153; G0103

== ENCOUNTER → 2024-03-04 | Outpatient (CLI) | payer MEDICARE, SELFPAY ==
[2024-03-04 09:34] LABS: Absolute Lymphocyte Count 1.57 X10^3/uL (0.83-4.51); Absolute Neutrophil Count 4.2 X10^3/uL (2.0-7.7); Basophil# 0.05 X10^3/uL; Basophil% 0.7 % (0-1); Eosinophil# 0.41 X10^3/uL; Eosinophils% 5.9 % (0-5); Hematocrit 40.8 % (40-54); Hemoglobin 13.2 g/dL (13.0-16.5); Lymphocyte # 1.57 X10^3/ul (0.83-4.51); Lymphocyte % 22.8 % (19-41); Mean Corp Hgb Conc 32.4 g/dL (32-36); Mean Corpuscular Hgb 28.4 pg (27.0-32.0); Mean Corpuscular Volume 87.9 fL (80-94); Mean Platelet Vol. 10.5 fl (6.2-12.0); Monocyte# 0.69 X10^3/uL; NRBC Flagged by Analyzer 0 % (0-5); Neutrophil # 4.15 X10^3/uL (2.7-7.7); Neutrophil % 60.2 % (47-70); Platelet Count 209 K/mm3 (150-450); RBC Distribution Width CV 13.5 % (11.6-14.6); RBC Distribution Width SD 43.7 fl (35.1-43.9); Red Blood Count 4.64 M/mm3 (4.6-6.2); White Blood Count 6.9 K/mm3 (4.4-11.0)
[2024-03-04 10:10] LABS: Hemoglobin A1c 6.6 % (3.8-5.6)
[2024-03-04 10:17] LABS: Vitamin B12 1290 pg/mL (211-911); Vitamin D,25 Hydroxy 47.9 ng/mL
[2024-03-04 10:24] LABS: Microalbumin,Random Urine 7.6 mg/L (NO RANGE EST.); Microalbumin:Creatinine Ratio 16.3 mg/g CRE (<30 mg/g CRE)
[2024-03-04 10:26] LABS: ALB/GLOB Ratio 1.2 RATIO (0.9-2.4); AST(SGOT) 11 U/L (15-37); Alanine Aminotransfer ALT/SGPT 17 U/L (16-61); Albumin, Serum 3.7 g/dL (3.2-5.0); Alkaline Phosphatase 70 U/L (45-117); Anion Gap 1 (5-15); BUN 13 mg/dL (7-18); BUN/Creat Ratio 13.9 RATIO (10-20); Calcium,Total 9.2 mg/dL (8.5-10.1); Chloride 107 mmol/L (98-107); Cholesterol 114 mg/dL (200); Creatinine, Serum 0.94 mg/dL (0.70-1.30); EST Glomerular Filtration Rate 84 mL/min (>60); Est Glom Filt Rate - Afr Amer 102 mL/min (>60); Globulin 3.2 g/dL (2.2-4.2); Glucose 154 mg/dL (74-106); High Density Lipoprotein 50 mg/dL; Potassium 4.8 mmol/L (3.5-5.1); Protein, Total 6.9 g/dL (6.4-8.2); Sodium Level 136 mmol/L (136-145); Thyroid Stim Hormone (TSH) 1.91 uIU/mL (0.358-3.74); Triglycerides 73 mg/dL; Very Low Density Lipoprotein 15 mg/dL (5-40)
== END | disposition home or self-care (01) ==
LOC: LAB 08:26
PROVIDERS: PCP Family Medicine; Visit Provider Family Medicine
DX: E11.9 Type 2 diabetes mellitus without complications (principal); E53.8 Deficiency of other specified B group vitamins; E55.9 Vitamin D deficiency, unspecified
CPT/HCPCS: 36415; 80053; 80061; 82043; 82306; 82570; 82607; 83036; 84443; 85025

== ENCOUNTER → 2024-05-26 | Outpatient (CLI) | payer MEDICARE, SELFPAY ==
--- NOTE | 2024-05-26 14:27 | STRESSREP ---
Stress Test Report Pharmacologic myocardial perfusion stress test. 73-year-old male with a history of coronary artery disease Resting EKG demonstrates sinus bradycardia with a rate of 53 bpm. Resting blood pressure is 128/72 mmHg. 0.4 mg of regadenoson was infused per usual protocol followed by rapid intravenous saline flush injection. Continuous EKG monitoring was performed. The maximum heart rate was 75 bpm which was 50% of max impacted heart rate the maximum workload was 1 metabolic equivalent. At rest there were no ST or T wave changes noted to suggest ischemia and at peak infusion nonspecific ST changes were noted which did not meet the criteria for ischemia. No clinical angina is noted. The final blood pressure was 124/68 mmHg. Myocardial perfusion protocol. 14.2 mCi of technetium 99m sestamibi was injected at rest. 0.4 mg of regadenoson was infused per usual protocol. At peak infusion 43.9 mCi of technetium 99m sestamibi was injected stress images were obtained stress and rest images were reconstructed and compared in the short axis vertical long and horizontal long axis. Gated images were also obtained. Perfusion SPECT analysis: Review of the stress images demonstrate normal uptake of tracer noted in all areas of the myocardium. The resting images similar demonstrated normal uptake of tracer noted in all areas of the myocardium. No areas of reversibility are noted to suggest ischemia and no previous infarct is noted. GI attenuation artifact is noted Gated SPECT analysis: The gated ejection fraction is 64%. Conclusion: Normal pharmacologic myocardial perfusion stress test. Preserved ejection fraction.
== END | disposition home or self-care (01) ==
PROVIDERS: PCP Family Medicine; Referring Provider Physician Assistant Medical; Visit Provider Physician Assistant Medical
DX: I10 Essential (primary) hypertension (principal); E78.00 Pure hypercholesterolemia, unspecified; Z95.5 Presence of coronary angioplasty implant and graft; I25.10 Atherosclerotic heart disease of native coronary artery without angina pectoris
CPT/HCPCS: 78452; 93017; A9500; A4216; J2785

== ENCOUNTER → 2024-06-23 | Outpatient (CLI) | payer MEDICARE, SELFPAY ==
--- NOTE | 2024-06-23 07:33 | CDU_ITS ---
Reason For Study: Lt ICA Stenosis Rt. Velocities/BP Lt. Velocities/BP Prox CCA 93.0/19.3 cm/sec. Prox CCA 83.0/17.9 cm/sec. Mid CCA 83.1/18.2 cm/sec. Mid CCA 74.4/15.5 cm/sec. Dist CCA 68.8/19.3 cm/sec. Dist CCA 146.7/27.5 cm/sec. Prox ICA 54.5/14.9 cm/sec. Prox ICA 120.8/22.3 cm/sec. Mid ICA 66.6/23.7 cm/sec. Mid ICA 195.9/58.6 cm/sec. Dist ICA 80.9/25.3 cm/sec. Dist ICA 53.5/19.4 cm/sec. Rt. ICA/CCA = 1.0. Lt. ICA/CCA = 2.6. Prox ECA 56.1/8.2 cm/sec. Prox ECA 88.5/9.4 cm/sec. Rt. Vert. 34.6/10.4 cm/sec. Lt. Vert. 45.9/12.7 cm/sec. Right Extracranial There is heterogeneous, irregular atherosclerotic plaque noted in the right common carotid artery. There is heterogeneous, irregular atherosclerotic plaque noted in the right internal carotid artery. There is heterogeneous, irregular atherosclerotic plaque noted in the right external carotid artery. Antegrade flow is noted in the right vertebral artery. Left Extracranial There is heterogeneous, smooth atherosclerotic plaque noted in the left common carotid artery. There is heterogeneous, irregular atherosclerotic plaque noted in the left internal carotid artery. There is heterogeneous, irregular atherosclerotic plaque noted in the left external carotid artery. Antegrade flow is noted in the left vertebral artery. Procedure This is a Carotid Duplex examination using B-mode, color flow and specral Doppler. Carotid Duplex [id number]. The exam was diagnostic. VL/Carotid Duplex Ultrasound Interpretation Summary Mild (<50%) stenosis right extracranial internal carotid. Moderate (50-69%) stenosis left extracranial internal carotid. Patent and antegrade vertebrals bilaterally. Ordering Physician: Aretha Mandujano Referring Physician: Sampson De La Vega Performed By: Wil Otero RVT
[2024-06-23 08:08] LABS: Absolute Lymphocyte Count 1.71 X10^3/uL (0.83-4.51); Absolute Neutrophil Count 5.5 X10^3/uL (2.0-7.7); Basophil# 0.05 X10^3/uL; Basophil% 0.6 % (0-1); Eosinophil# 0.37 X10^3/uL; Eosinophils% 4.3 % (0-5); Hematocrit 42.8 % (40-54); Hemoglobin 14.1 g/dL (13.0-16.5); Lymphocyte # 1.71 X10^3/ul (0.83-4.51); Mean Corp Hgb Conc 32.9 g/dL (32-36); Mean Corpuscular Hgb 28.9 pg (27.0-32.0); Mean Corpuscular Volume 87.7 fL (80-94); Mean Platelet Vol. 10.2 fl (6.2-12.0); Monocyte# 0.81 X10^3/uL; Monocyte% 9.5 % (0-10); NRBC Flagged by Analyzer 0 % (0-5); Neutrophil # 5.54 X10^3/uL (2.7-7.7); Platelet Count 227 K/mm3 (150-450); RBC Distribution Width CV 13.3 % (11.6-14.6); RBC Distribution Width SD 42.9 fl (35.1-43.9); Red Blood Count 4.88 M/mm3 (4.6-6.2); White Blood Count 8.5 K/mm3 (4.4-11.0)
[2024-06-23 08:38] LABS: Hemoglobin A1c 6.6 % (3.8-5.6)
[2024-06-23 08:43] LABS: ALB/GLOB Ratio 1.2 RATIO (0.9-2.4); AST(SGOT) 7 U/L (15-37); Alanine Aminotransfer ALT/SGPT 9 U/L (16-61); Alkaline Phosphatase 71 U/L (45-117); Anion Gap 8 (5-15); BUN 18 mg/dL (7-18); BUN/Creat Ratio 18.2 RATIO (10-20); Calcium,Total 9.6 mg/dL (8.5-10.1); Chloride 102 mmol/L (98-107); Cholesterol 121 mg/dL (200); Creatinine, Serum 0.99 mg/dL (0.70-1.30); EST Glomerular Filtration Rate 79 mL/min (>60); Est Glom Filt Rate - Afr Amer 96 mL/min (>60); Globulin 3.4 g/dL (2.2-4.2); Glucose 152 mg/dL (74-106); High Density Lipoprotein 54 mg/dL; Potassium 4.4 mmol/L (3.5-5.1); Protein, Total 7.4 g/dL (6.4-8.2); Sodium Level 138 mmol/L (136-145); Triglycerides 78 mg/dL; Very Low Density Lipoprotein 16 mg/dL (5-40)
[2024-06-23 08:47] LABS: Vitamin B12 534 pg/mL (211-911); Vitamin D,25 Hydroxy 45.1 ng/mL
== END | disposition home or self-care (01) ==
PROVIDERS: PCP Family Medicine; Referring Provider Physician Assistant; Visit Provider Physician Assistant
DX: I65.22 Occlusion and stenosis of left carotid artery (principal); E11.9 Type 2 diabetes mellitus without complications; E53.8 Deficiency of other specified B group vitamins; F17.210 Nicotine dependence, cigarettes, uncomplicated; E55.9 Vitamin D deficiency, unspecified
CPT/HCPCS: 36415; 80053; 80061; 82306; 82607; 82746; 83036; 85025; 93880

== ENCOUNTER → 2024-11-06 | Outpatient (CLI) | payer MEDICARE, SELFPAY ==
[2024-11-06 10:47] LABS: Absolute Lymphocyte Count 1.47 X10^3/uL (0.83-4.51); Absolute Neutrophil Count 4.4 X10^3/uL (2.0-7.7); Basophil# 0.03 X10^3/uL; Basophil% 0.4 % (0-1); Eosinophil# 0.25 X10^3/uL; Eosinophils% 3.7 % (0-5); Hematocrit 41.3 % (40-54); Hemoglobin 13.6 g/dL (13.0-16.5); Lymphocyte # 1.47 X10^3/ul (0.83-4.51); Lymphocyte % 21.6 % (19-41); Mean Corp Hgb Conc 32.9 g/dL (32-36); Mean Corpuscular Hgb 28.5 pg (27.0-32.0); Mean Corpuscular Volume 86.6 fL (80-94); Mean Platelet Vol. 9.8 fl (6.2-12.0); Monocyte# 0.64 X10^3/uL; Monocyte% 9.4 % (0-10); NRBC Flagged by Analyzer 0 % (0-5); Neutrophil # 4.38 X10^3/uL (2.7-7.7); Neutrophil % 64.5 % (47-70); Platelet Count 246 K/mm3 (150-450); RBC Distribution Width CV 13.2 % (11.6-14.6); RBC Distribution Width SD 42.2 fl (35.1-43.9); Red Blood Count 4.77 M/mm3 (4.6-6.2); White Blood Count 6.8 K/mm3 (4.4-11.0)
[2024-11-06 11:28] LABS: ALB/GLOB Ratio 1.2 RATIO (0.9-2.4); AST(SGOT) 11 U/L (15-37); Alanine Aminotransfer ALT/SGPT 23 U/L (16-61); Albumin, Serum 4.1 g/dL (3.2-5.0); Alkaline Phosphatase 83 U/L (45-117); Anion Gap 5 (5-15); BUN 16 mg/dL (7-18); Calcium,Total 9.6 mg/dL (8.5-10.1); Chloride 101 mmol/L (98-107); Cholesterol 122 mg/dL (200); Creatinine, Serum 0.94 mg/dL (0.70-1.30); EST Glomerular Filtration Rate 84 mL/min (>60); Est Glom Filt Rate - Afr Amer 101 mL/min (>60); Globulin 3.5 g/dL (2.2-4.2); Glucose 166 mg/dL (74-106); High Density Lipoprotein 56 mg/dL; Potassium 4.3 mmol/L (3.5-5.1); Protein, Total 7.6 g/dL (6.4-8.2); Sodium Level 132 mmol/L (136-145); Triglycerides 90 mg/dL; Very Low Density Lipoprotein 18 mg/dL (5-40)
[2024-11-06 11:47] LABS: Bacteria 0 SEEN /hpf (None Seen); Mucous, Urine 0 SEEN /hpf (<or=2+); Red Blood Cells-Urine 0 SEEN /hpf (0-5); Squamous Epithelial Cells - UA 0 SEEN /hpf (0-5); White Blood Cells 0 SEEN /hpf (0-5)
[2024-11-06 11:55] LABS: Hemoglobin A1c 6.9 % (3.8-5.6)
[2024-11-06 12:12] LABS: Color, Urine Yellow (Yellow); Glucose, Dipstick 50 mg/dl (Normal); Ketone-Dipstick Negative (Negative); Leukocyte Esterase-Dipstick Negative /ul (Negative); Nitrite-Dipstick Negative (Negative); Occult Blood-Urine Negative /ul (Negative); Protein-Dipstick Negative (Negative); Specific Gravity, Urine 1.015 (1.002-1.030); Urine Bilirubin Dipstick Negative (Negative); Urine Clarity Clear (Clear); Urine Urobilinogen Normal (Normal)
[2024-11-06 12:52] LABS: Microalbumin,Random Urine 14.5 mg/L (NO RANGE EST.); Microalbumin:Creatinine Ratio 24.9 mg/g CRE (<30 mg/g CRE)
[2024-11-09 11:38] LABS: Vitamin B12 481 pg/mL (211-911); Vitamin D,25 Hydroxy 52.4 ng/mL
== END | disposition home or self-care (01) ==
PROVIDERS: PCP Family Medicine; Referring Provider Family Medicine; Visit Provider Family Medicine
DX: E53.8 Deficiency of other specified B group vitamins (principal); E11.69 Type 2 diabetes mellitus with other specified complication; E55.9 Vitamin D deficiency, unspecified; F17.210 Nicotine dependence, cigarettes, uncomplicated
CPT/HCPCS: 36415; 80053; 80061; 81001; 82043; 82306; 82570; 82607; 83036; 85025

== ENCOUNTER → 2025-03-11 | Outpatient (CLI) | payer MEDICARE, SELFPAY ==
[2025-03-11 10:07] LABS: Absolute Lymphocyte Count 1.87 X10^3/uL (0.83-4.51); Absolute Neutrophil Count 3.8 X10^3/uL (2.0-7.7); Basophil# 0.04 X10^3/uL; Basophil% 0.6 % (0-1); Eosinophil# 0.26 X10^3/uL; Hematocrit 45.2 % (40-54); Lymphocyte # 1.87 X10^3/ul (0.83-4.51); Lymphocyte % 28.8 % (19-41); Mean Corp Hgb Conc 33.2 g/dL (32-36); Mean Corpuscular Hgb 29.1 pg (27.0-32.0); Mean Corpuscular Volume 87.6 fL (80-94); Mean Platelet Vol. 10.3 fl (6.2-12.0); Monocyte# 0.55 X10^3/uL; Monocyte% 8.5 % (0-10); NRBC Flagged by Analyzer 0 % (0-5); Neutrophil # 3.76 X10^3/uL (2.7-7.7); Neutrophil % 57.8 % (47-70); Platelet Count 252 K/mm3 (150-450); RBC Distribution Width CV 13.3 % (11.6-14.6); Red Blood Count 5.16 M/mm3 (4.6-6.2); White Blood Count 6.5 K/mm3 (4.4-11.0)
[2025-03-11 11:36] LABS: Hemoglobin A1c 7.2 % (<=5.6)
[2025-03-11 12:57] LABS: Microalbumin,Random Urine < 12.0 mg/L (NO RANGE EST.); Microalbumin:Creatinine Ratio UNABLE TO CALCULATE mg/g CRE
[2025-03-11 13:23] LABS: ALB/GLOB Ratio 1.6 RATIO (0.9-2.4); AST(SGOT) 17 U/L (<=37); Alanine Aminotransfer ALT/SGPT 15 U/L (<=46); Albumin, Serum 4.5 g/dL (3.4-4.8); Alkaline Phosphatase 80 U/L (40-129); Anion Gap 12 (5-15); BUN 3 mg/dL (4-19); BUN/Creat Ratio 2.6 RATIO (10-20); Carbon Dioxide 24.4 mmol/L (21.0-32.0); Chloride 102 mmol/L (98-108); Cholesterol 129 mg/dL (<=200); Creatinine, Serum 1.04 mg/dL (0.70-1.20); EST Glomerular Filtration Rate 76 (>60); Globulin 2.8 g/dL (2.2-4.2); Glucose 159 mg/dL (70-99); High Density Lipoprotein 49 mg/dL; Low Density Lipoprotein Calc. 62 mg/dL; Protein, Total 7.3 g/dL (5.9-8.4); Sodium Level 138 mmol/L (133-145); Total Bilirubin 0.61 mg/dL (0.00-1.30); Triglycerides 90 mg/dL; Very Low Density Lipoprotein 18 mg/dL (5-40); cholesterol:hdl ratio screen 2.63
== END | disposition home or self-care (01) ==
LOC: LAB 09:06
PROVIDERS: PCP Family Medicine; Referring Provider Family Medicine; Visit Provider Family Medicine
DX: E11.8 Type 2 diabetes mellitus with unspecified complications (principal)
CPT/HCPCS: 36415; 80053; 80061; 82043; 82570; 83036; 85025

== ENCOUNTER → 2025-07-02 | Outpatient (CLI) | payer MEDICARE, SELFPAY ==
[2025-07-02 07:46] LABS: Mucous, Urine 0 SEEN /hpf (<or=2+); Red Blood Cells-Urine 0 SEEN /hpf (0-5)
--- OUTSIDE RECORDS SUMMARY | 2025-07-02 08:03 | XMS RPT_ITS | CCD ---
Author Organization [facility] Team Providers Care Management Lead Name Role Phone Binta Velazquez Unavailable IMCA Unavailable Unavailable MALLAT, ALI F Unavailable Unavailable MALLAT, ALI F Unavailable Unavailable MUAKKASSA, FARID F Unavailable Unavailable MALLAT, ALI Unavailable Unavailable MALLAT, ALI Unavailable Unavailable MUAKKASSA, FARID MURALI Unavailable Unavailmarce Quintero RN, Alice Lui Unavailable Unavailable Binta Velazquez Unavailable Dr. Naif De La Vega Primary Care Provider Dr. Naif De La Vega Referring Provider Abraham CUSTOMER CONTACT REPRESENTATIVE, CUSTOMER CONTACT REPRESENTATIVELuzC Darcy Attending Provider Dr. Terry Taylor Attending Provider [phone] Naif De La Vega Primary Care Provider KELVIN DUPONT Attending Unavailable NAIF DE LA VEGA Referring UnavailNAIF Buckner Primary Care UnavailDr. Naif Buckner Primary Care Provider [phone] Dr. Naif De La Vega Referring Provider Dr. Xavi Brody Attending Provider Dr. Terry Taylor Attending Provider KEYSHAWN Mandujano Attending Provider [phone] Naif De La Vega Primary Care Provider Dr. Naif De La Vega Referring Provider Dr. Terry Taylor Attending Provider KEYSHAWN Mandujano Attending Provider [phone] Naif De La Vega Primary Care Provider Dr. Terry Taylor Attending Provider [phone] Ceferino PACE, Dr. Naif Kellogg Primary Care Provider [phone] Ceferino PACE, Dr. Naif Kellogg Attending Provider Ceferino PACE, Dr. Naif Kellogg Referring Provider Juliet Mccollum Attending Provider [phone] Naif De La Vega E Primary Care Unavailable Mandujano, Aretha Attending Unavailable Mandujano, Aretha Referring Unavailable Schinner, Naif E Primary Care Unavailable Mandujano, Aretha Attending Unavailable Mandujano, Aretha Referring Unavailable Schinner, Naif E Primary Care Unavailable Mandujano, Aretha Referring Unavailable Terry Taylor Attending Unavailable Juliet Mccollum Referring Unavail able Schinner, Naif E Primary Care Unavailable Xavi Brody Attending Unavailable Juliet Mccollum Consulting Unavail able Schinner, Naif E Primary Care Unavailable Juliet Mccollum Attending Unavail able Schinner, Naif E Referring Unavailable Juliet Mccollum Attending Unavail able Schinner, Naif E Primary Care Unavailable Schinner, Naif E Referring Unavailable Juliet Mccollum Attending Unavail able Juliet Mccollum Referring Unavail able Schinner, Naif E Primary Care Unavailable Schinner, Naif E Primary Care Unavailable Schinner, Naif E Attending Unavailable Schinner, Naif E Referring Unavailable Schinner, Naif E Referring Unavailable Schinner, Naif E Primary Care Unavailable SchNaif velasquez E Attending Unavailable Allergies Allergy Classification Reported Allergen(s) Allergy Type Date of Onset Reaction(s) Facility (3 sources) atorvastatin drug allergy 05-02-2011 [place] [facility] Work Phone: (3 sources) simvastatin drug allergy 05-02-2011 [facility] Work Phone: (11 sources) atorvastatin Drug Allergy 01-26-2022 [place] [facility] (11 sources) Simvastatin Drug Allergy 01-26-2022 [facility] (1 source) atorvastatin Drug Allergy 05-06-2025 [facility] (1 source) Simvastatin Drug Allergy 05-06-2025 [facility] Medications Current Medications Medication Drug Class(es) Dates Sig (Normalized) Sig (Original) amLODIPine 10 mg oral tablet (11 sources) Dihydropyridine Calcium Channel Megan Start: 01-26-2022 take 1 tablet by mouth once daily Amlodipine 10 mg tablet Active 10 mg PO DAILY January 26, 2022 12:00am clopidogrel 75 mg oral tablet (20 sources) P2Y12 Platelet Inhibitor Start: 03-08-2020 take 1 tablet by mouth once daily Clopidogrel (Plavix) 75 mg tablet Active 75 mg PO DAILY March 08, 2020 12:00am Start: 12-25-2018 End: 12-28-2019 take 1 tablet by mouth once daily Clopidogrel 75 mg tablet Discontinued 75 mg PO DAILY 90 90 3 January 02, 2019 8:31am December 27, 2019 1:00am December 28, 2019 12:09am Start: 12-25-2018 End: 01-02-2019 Clopidogrel 75 mg tablet Discontinued PO 90 90 0 December 25, 2018 1:00am January 02, 2019 8:31am Start: 01-09-2018 End: 11-05-2018 take 1 tablet by mouth five times daily Clopidogrel 75 mg tablet Discontinued 75 mg PO DAILY 90 3 January 09, 2018 8:38am November 05, 2018 5:46pm WILL STOP 5 DAYS PRIOR Start: 08-20-2009 End: 01-09-2018 take 1 tablet by mouth once daily Clopidogrel 75 MG tablet Discontinued 75 mg PO DAILY March 04, 2014 12:00am January 09, 2018 8:38am Comment on above: Take one(1) tablet d aily. mecobalamin (1 source) Start: 5 take 1 ug by mouth every other day Mecobalamin (Vitamin B12) 2,500 mcg tablet,chewable Active 1 ug PO .every other day May 06, 2025 12:00am metFORMIN hydrochloride 500 mg oral tablet (20 sources) Biguanide Start: 1 take 2 tablets by mouth twice daily Metformin 500 mg tablet Active 1000 mg PO TWICE A DAY December 20, 2020 3:14pm Start: 12-20-2020 take 1000 mg by mout h twice daily Metformin Active 1000 MG PO TWICE A DAY December 20, 2020 2:14pm Start: 09-17-2018 End: 12-20-2020 take 1 tablet by mouth twice daily Metformin 500 mg tablet Discontinued 500 mg PO TWICE A DAY September 17, 2018 1:00am December 20, 2020 3:15pm Comment on above: Take 1,000 mg by billy twice daily with meals. 24 hr metoprolol succinate 25 mg extended release oral tablet (20 sources) beta-Adrenergic Megan Start: 09-17-2018 End: 12-25-2018 take 1 tablet by mouth once daily Metoprolol Succinate 25 mg tablet extended release 24 hr Active 25 mg PO DAILY 90 90 0 December 25, 2018 2:45pm Start: 09-17-2018 End: 09-17-2018 take 1 tablet by mouth once daily Metoprolol Succinate 50 mg tablet extended release 24 hr Discontinued 50 mg PO DAILY September 17, 2018 1:00am September 17, 2018 2:18pm Comment on above: Take 25 mg by mouth once daily. rosuvastatin calcium 10 mg oral tablet (20 sources) HMG-CoA Reductase Inhibitor Start: take 1 tablet by mouth once daily Rosuvastatin 10 mg tablet Active 10 mg PO DAILY December 25, 2018 1:00am Start: 08-20-2009 End: 12-25-2018 take 1 tablet by mouth at bedtime Rosuvastatin 5 mg tablet Discontinued 5 mg PO AT BEDTIME 90 3 April 08, 2018 8:12am December 25, 2018 2:44pm Comment on above: Take one(1) tablet d chris. ubidecarenone 100 mg oral capsule (12 sources) Start: 05-06-2025 Coenzyme Q10 (Co Q-10) 100 mg capsule Active 200 mg PO DAILY May 06, 2025 11:23am Start: 09-03-2019 End: 05-06-2025 Coenzyme Q10 (Co Q-10) 100 m g capsule Discontinued 100 mg PO DAILY September 03, 2019 1:00am May 06, 2025 11:25am Completed/Discontinued Medications Medication Drug Class(es) Dates Sig (Normalized) Sig (Original) acetaminophen 325 mg oral tablet (1 source) Start: 07-30-2018 take 2 tablets by mouth four times daily acetaminophen (TYLENOL) 325 mg tablet Take 2 tablets by mouth four times daily. 0 07/30/2018 Active Comment on above: Take 2 tablets by mo [facility] four times daily. acetaminophen 325 mg / HYDROcodone bitartrate 5 mg oral tablet (11 sources) Opioid Agonist Start: 03-04-2014 End: 12-25-2017 Hydrocodone-Acetami nophen 1 TABLET tablet Discontinued 1 - 2 {tbl} PO EVERY 4 HOURS NEEDED as needed for Pain 12 March 04, 2014 12:00am December 25, 2017 2:19pm Start: 03-04-2014 End: 12-25-2017 take 1 tablet by mouth every four hours as needed Hydrocodone-Acetaminophen Discontinued 1 - 2 TABLET PO EVERY 4 HOURS NEEDED March 03, 2014 11:00pm December 25, 2017 1:19pm acyclovir 800 mg oral tablet (11 sources) Herpesvirus Nucleoside Analog DNA Polymerase Inhibitor, Herpes Simplex Virus Nucleoside Analog DNA Polymerase Inhibitor, Herpes Zoster Virus Nucleoside Analog DNA Polymerase Inhibitor Start: 03-04-2014 End: 12-25-2017 take 1 tablet by mouth four times daily Acyclovir 800 MG tablet Discontinued 800 mg PO 4 TIMES DAILY March 04, 2014 12:00am December 25, 2017 2:18pm amoxicillin 875 mg oral tablet (11 sources) Penicillin-class Antibacterial Start: 10-27-2018 End: 12-25-2018 take 1 tablet by mouth twice daily Amoxicillin 875 MG tablet Discontinued 875 mg PO TWICE A DAY October 27, 2018 1:00am December 25, 2018 2:42pm aspirin 81 mg chewable tablet (20 sources) Platelet Aggregation Inhibitor, Nonsteroidal Anti-inflammatory Drug Start: 03-04-2014 End: 11-05-2018 Aspirin 81 MG tablet,chewable Discontinued 81 mg PO DAILY@0800 March 04, 2014 12:00am November 05, 2018 5:46pm WILL STOP 7 DAYS PRIOR Start: 05-02-2011 take 1 tablet by billy th once daily ASPIRIN 81 MG TABS One tablet by mouth daily ASPIRIN [id number] Ana Brody Start: 05-02-2011 take 1 tablet by billy th once daily ASPIRIN 81 MG TABS One tablet by mouth daily ASPIRIN [id number] Ana Brody Start: 08-20-2009 Aspirin (Adult Low Dose Aspirin) 81 mg tablet,delayed release (DR/EC) Active 81 mg PO DAILY September 03, 2019 1:00am Comment on above: Take one(1) tablet d chris. atenolol 50 mg oral tablet (20 sources) beta-Adrenergic Megan Start: 03-04-2014 End: 01-09-2018 take 1 tablet by mouth once daily Atenolol 50 MG tablet Discontinued 50 mg PO DAILY March 04, 2014 12:00am January 09, 2018 8:38am Start: 08-20-2009 End: 09-17-2018 take 1 tablet by mouth once daily Atenolol 50 mg tablet Discontinued 50 mg PO DAILY 90 3 January 09, 2018 8:38am September 17, 2018 2:01pm Comment on above: Take one(1) tablet d chris. cholecalciferol 0.025 mg oral capsule (20 sources) Vitamin D Start: 05-06-20 take 1 capsule by mouth once daily Cholecalciferol (Vitamin D3) 50 mcg (2,000 unit) capsule Active 50 ug PO daily May 06, 2025 12:00am Start: 12-20-2020 End: 05-06-2025 take 1 capsule by mouth once daily Cholecalciferol (Vitamin D3) 25 mcg (1,000 unit) capsule Discontinued 25 ug PO DAILY May 06, 2025 11:24am May 06, 2025 11:25am Start: 07-31-2018 End: 12-20-2020 take 1 capsule by mouth once daily Cholecalciferol (Vitamin D3) 5,000 unit capsule Discontinued 5000 U PO DAILY December 25, 2018 1:00am December 20, 2020 3:15pm Comment on above: Take 1 capsule by [facility] once daily. ciprofloxacin 500 mg oral tablet (11 sources) Quinolone Antimicrobial Start: End: take 1 tablet by mouth twice daily Ciprofloxacin Hcl 500 MG tablet Discontinued 500 mg PO TWICE A DAY 14 November 05, 2018 1:00am December 25, 2018 2:42pm cyclobenzaprine hydrochloride 10 mg oral tablet (1 source) Muscle Relaxant Start: take 1 tablet by mouth three times daily as needed for muscle spasms cyclobenzaprine (FLEXERIL) 10 mg tablet Indications: Fracture three ribs-closed, left, initial encounter Take 1 tablet by mouth three times daily as needed for Muscle Spasm. 21 tablet 0 07/30/2018 Active Comment on above: Take 1 tablet by [facility] three times daily as needed for Muscle Spasm. docusate sodium 50 mg / sennosides, jail 8.6 mg oral tablet (1 source) Start: take 1 tablet by mouth twice daily senna-docusate (SENNA-S) 8.6-50 mg per tablet Take 1 tablet by mouth twice daily. 0 07/30/2018 Active Comment on above: Take 1 tablet by billy th twice daily. dutasteride 0.5 mg oral capsule (16 sources) 5-alpha Reductase Inhibitor Start: End: take 1 capsule by mouth once daily Dutasteride 0.5 MG capsule Discontinued 0.5 mg PO DAILY March 04, 2014 12:00am December 25, 2017 2:19pm dutasteride 0.5 mg / tamsulosin hydrochloride 0.4 mg oral capsule (6 sources) alpha-Adrenergic Megan, 5-alpha Reductase Inhibitor Start: End: take 1 tablet by mouth once daily JUWAN 0.5-0.4 MG CAPS One tablet by mouth daily DUTASTERIDE-TAMSULOSIN HCL [id number] Xavi Brody MD Start: 08-04-2013 End: 03-04-2014 take 1 tablet by mouth once daily JUWAN 0.5-0.4 MG CAPS One tablet by mout h daily DUTASTERIDE-TAMSULOSIN HCL [id number] Xavi Brody MD Start: 08-04-2013 take 1 tablet by billy th once daily JUWAN 0.5-0.4 MG CAPS One tablet by mout h daily DUTASTERIDE-TAMSULOSIN HCL [id number] NATE OrtaC 12 hr guaiFENesin 600 mg extended release oral tablet (1 source) Start: 07-30-2018 take 1 tablet by mouth every twelve hours guaiFENesin (MUCINEX) 600 mg 12 hr tablet Take 1 tablet by mouth every 12 hours. 14 tablet 0 07/30/2018 Active Comment on above: Take 1 tablet by billy th every 12 hours. nitroglycerin 0.4 mg sublingual tablet (20 sources) Nitrate Vasodilator Start: 03-04-2014 End: 05-09-2023 Nitroglycerin Discontinued 0.4 MG SL Q5M March 08, 2020 2:33pm May 09, 2023 8:38am Start: 05-02-2011 NITROSTAT 0.4 MG SUBL 1 tablet under tongue every 5 min up to 3 X PRN NITROGLYCERIN [id number] Xavi Brody MD Start: 08-20-2009 End: 05-06-2025 Nitroglycerin 0.4 MG tablet Discontinued 0.4 mg SL Q5M as needed for Chest Pain March 04, 2014 12:00am March 08, 2020 3:34pm Comment on above: Place one(1) tablet on tongue as needed for chest pain. If no pain relief call 911. polyethylene glycol 3350 87356 mg powder for oral solution (1 source) Osmotic Laxative Start: 8 take 1 dose by mouth once daily polyethylene glycol 3350 (MIRALAX, GLYCOLAX) 17 gram packet Take 1 Packet by mouth once daily. 0 07/31/2018 Active Comment on above: Take 1 Packet by [facility] once daily. predniSONE 10 mg oral tablet (11 sources) Start: 4 End: 8 take 6 tablets by mouth once daily, then take 4 tablets by mouth once daily, then take 2 tablets by mouth once daily, then take 1 tablet by mouth once daily Prednisone 10 MG tablet Discontinued 10 mg PO DAILY 48 0 March 04, 2014 12:00am December 25, 2017 2:19pm 6 po qd x 3 days, 4 po qd x 3 days, 2 po qd x 3 days, 1 po qd x 3 days tamsulosin hydrochloride 0.4 mg oral capsule (16 sources) alpha-Adrenergic Megan Start: 8 End: 3 take 1 capsule by mouth twice daily Tamsulosin 0.4 mg capsule Discontinued 0.4 mg PO TWICE A DAY 30 30 0 September 17, 2018 1:00am August 07, 2023 12:13pm Start: 06-15-2014 End: 06-27-2017 take 1 tablet by mouth once daily TAMSULOSIN HCL 0.4 MG CAPS One tablet by mouth daily TAMSULOSIN HCL [id number] Xavi Brody MD vitamin b12 0.1 mg oral tablet (11 sources) Vitamin B12 Start: 12-20-2020 End: 05-06-2025 Cyanocobalamin (Vitamin B-12 ) (Vitamin B-12) 100 mcg tablet Discontinued 100 ug PO .3xweek December 20, 2020 1:00am May 06, 2025 11:27am Problems Active Problems Problem Classification Problem Date Documented Da te Episodic/Chronic Conditions associated with dizziness or vertigo (12 sources) Dizziness and giddiness; Translations: [Dizziness] Onset: 07-30-2018 07-21-2019 Episodic Coronary atherosclerosis and other heart disease (20 sources) Coronary arteriosclerosis; Translations: [Coronary atherosclerosis] Onset: 10-21-1994 Resolved: 06-21-2015 06-21-2015 Chronic Diabetes mellitus with complications (1 source) Type 2 diabetes mellitus with unspecified complications; Translations: [Type 2 diabetes mellitus with unspecified complications] Onset: 03-17-2025 Chronic Disorders of lipid metabolism (20 sources) Hyperlipidemia; Translations: [Hyperlipidemia, unspecified] Onset: 05-02-2011 05-02-2011 Chronic Essential hypertension (19 sources) Essential hypertension; Translations: [Essential (primary) hypertension] Onset: 06-25-2024 Chronic External Injury - Fall (1 source) Unspecified fall, initial encounter; Translations: [Unspecified fall, initial encounter] Onset: 07-30-2018 Heart valve disorders (3 sources) Mitral valve prolapse; Translations: [Nonrheumatic mitral (valve) prolapse] Onset: 05-02-2011 05-02-2011 Chronic Hemorrhoids (1 source) Thrombosed external hemorrhoids; Translations: [Perianal venous thrombosis] Episodic Occlusion or stenosis of precerebral arteries (16 sources) Left carotid artery stenosis; Translations: [Occlusion and stenosis of left carotid artery] Onset: 07-13-2024 09-03-2019 Chronic Comment on above: Duplex 06/27/23: Mild (<50%) stenosis right extracranial internal carotid.Severe (>70%) stenosis left extracranial internal carotid. Max velocity mid ICA 233.7/68.9. Other aftercare (9 sources) Patient encounter status; Translations: [Other terminologist (current) drug therapy] 07-21-2019 Episodic Other aftercare (2 sources) Long-term current use of drug therapy; Translations: [Other usp (current) drug therapy] 07-21-2019 Episodic Other circulatory disease (11 sources) History of cardiovascular surgery; Translations: [Presence of other cardiac implants and grafts] 02-07-2021 Chronic Other fractures (1 source) Multiple fractures of ribs, left side, initial encounter for closed fracture; Translations: [Multiple fractures of ribs, left side, initial encounter for closed fracture] Onset: 07-30-2018 Episodic Other liver diseases (1 source) Abnormal levels of other serum enzymes; Translations: [Abnormal levels of other serum enzymes] Onset: 07-27-2018 Episodic Other lower respiratory disease (1 source) Hemoptysis; Translations: [Hemoptysis] Onset: 07-27-2018 Episodic Syncope (11 sources) Near syncope; Translations: [Syncope and collapse] 07-21-2019 Episodic Unclassified (1 source) Unknown / UNK(Unknown) Onset: 07-30-2018 Unclassified (2 sources) Long-term drug therapy; Translations: [Other usp (current) drug therapy] Onset: 05-02-2011 05-02-2011 Past or Other Problems Problem Classification Problem Date Documented Da te Episodic/Chronic Coronary atherosclerosis and other heart disease (9 sources) Coronary angioplasty status; Translations: [Presence of coronary angioplasty implant and graft] Onset: 03-14-2004 05-02-2011 Episodic Crushing injury or internal injury (2 sources) Contusion of lung, unilateral, initial encounter; Translations: [Contusion of lung] Onset: 07-28-2018 07-30-2018 Episodic Headache; including migraine (3 sources) Headache; Translations: [Headache] Onset: 03-04-2014 03-04-2014 Episodic Nutritional deficiencies (1 source) Deficiency of other specified B group vitamins; Translations: [Deficiency of other specified B group vitamins] Onset: 11-30-2024 Episodic Other aftercare (1 source) Other usp (current) drug therapy; Translations: [Other usp (current) drug therapy] Onset: 05-02-2011 05-02-2011 Episodic Other fractures (1 source) Closed fracture of three ribs; Translations: [Multiple fractures of ribs, left side, initial encounter for closed fracture] Onset: 07-27-2018 07-30-2018 Episodic Other nutritional; endocrine; and metabolic disorders (6 sources) Body mass index (BMI) 26.0-26.9, adult; Translations: [Body mass index (BMI) 28.0-28.9, adult] Onset: 12-14-2014 12-20-2015 Episodic Residual codes; unclassified (3 sources) Family history of stroke; Translations: [Family history of stroke] 12-14-2014 Episodic Unclassified (1 source) Contusion of lung, unilateral, initial encounter Onset: 07-27-2018 Results Test Name Value Interpretation Reference Range Facility Cardiology Visit Reporton Cardiology Visit Report [facility] [address] [place] [address] OFFICE VISIT Date of Service: 05/06/25 MR#: [id number] Acct: [id number] Name: JANETT VUONG Rep #: [id number] : 1950 Provider: KEYSHAWN Jasso Age/Sex: 74/M Location: [email or web address] Status: Signed HPI HPI History of Present Illness Details: Janett Vuong is a 74-year-old gentleman that presents here today for a cardiovascular follow-up. He has a history of coronary artery disease with stenting in 2003. He also has a history of hypertension, hyperlipidemia and syncope in which he had a loop recorder. He requested that his loop recorder be removed, this was removed in December of 2020. From a cardiac standpoint, patient is doing well. He does not have any chest discomfort/heaviness/tightnes s. He does not have any worsening symptoms of shortness of breath. He denies any PND. He does not have any orthopnea. He does not have any symptoms of congestive heart failure. He does not have any palpitations that he is aware of. He does not have any lightheadedness or dizziness. He does not have any near-syncope or syncope. He does not have any lower extremity edema. He does not have any symptoms of claudication. He has lost weight since he was here last. Intake Vital Signs 11/06/24 10:39 05/06/25 11:30 Height 5 ft 10 in 5 ft 10 in Weight: 179 lb 168 lb BMI 25.7 24.0 BP 126/82 H 115/72 Blood Pressure Location Lt brachial Lt brachial Position Sitting Sitting Respiration 18 18 Pulse 64 62 Pulse Source Monitor Pulse Oximetry (%) 98 Intake Visit Reasons: 6 M FU Curtain Framer Required: No Accompanied by: Self Is patient in pain?: No Allergies atorvastatin (From Lipitor) Allergy (Severe, Verified 05/06/25 11:30) Muscle aches simvastatin (From Zocor) Adverse Reaction (Severe, Verified 05/06/25 11:30) Hives Medications ???Medication ???Instructions ???Recorded ???Confirmed ???Type metoprolol succinate 25 mg 25 mg PO DAILY 90 days #90 tabs 05/06/25 History tablet,extended release 24 hr rosuvastatin 10 mg tablet 10 mg PO DAILY 12/25/18 05/06/25 H istory aspirin 81 mg tablet,delayed 81 mg PO DAILY 09/03/19 05/06/25 H istory release (Adult Low Dose Aspirin) clopidogrel 75 mg tablet (Plavix) 75 mg PO DAILY 03/08/20 05/06/25 History metformin 500 mg tablet 1,000 mg PO BID 12/20/20 05/06/25 History amlodipine 10 mg tablet 10 mg PO DAILY 01/26/22 05/06/25 H istory cholecalciferol (vitamin D3) 50 50 mcg PO QDAY 05/06/25 05/06/25 H istory mcg (2,000 unit) capsule coenzyme Q10 100 mg capsule (Co 200 mg PO DAILY 05/06/25 05/06/25 History Q-10) mecobalamin (vitamin B12) 2,500 1 mcg PO .every other day 05/06/25 05/06/25 History mcg chewable tablet nitroglycerin 0.4 mg sublingual 0.4 mg sublingual Q5M PRN Chest 05/06/25 Rx tablet Pain #25 tabs Ejection fraction %: 64 Have you fallen in the past year?: No PFSH Medical History Wears glasses Wears dentures Wears partial dentures Cancer Alcohol use Diabetes Prostate disease High cholesterol Restless legs Blackout Dietary restriction History of IBS Smoker Chronic cough Leg cramps History of stress test History of echocardiogram Hypertension Cardiology follow-up encounter Status post placement of implantable loop recorder Syncope 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 (1994) Left carotid artery stenosis Essential hypertension Atherosclerosis of [place] coronary artery of [place] heart without angina pectoris Headache Hyperlipidemia Surgical History Encounter for loop recorder at end of battery life (12/27/20) History of transurethral resection of prostate (11/05/18) Hx of transurethral destruction of bladder lesion (11/05/18) History of loop recorder (10/06/18) History of coronary artery stent placement (03/14/04) History of left heart catheterization (02/2001) History of appendectomy History of tonsillectomy Family History Father CAD (coronary artery disease) Hx CABG Diabetes Myocardial infarction Mother Breast cancer CVA (cerebral vascular accident) Sister Cancer Pancreatic cancer Diabetes Brother Myocardial infarction, Onset Age: 54 Other Family history of CVA Social History Smoking Status: Current every day smoker tobacco type: cigarettes alcohol intake: current alcohol intake frequency: a few times a week Alcohol type: beer and hard liquor substance use type: does not use caffeine: Yes Type: coffee Nu (more content not included)... Normal [facility] Absolute lymphocyte countOrd ered By: Naif De La Vega on 03-11-2025 Lymphocytes Auto (Unsp spec) [#/Vol] 1.87 10*3/uL 0.83-4.51 [facility] Absolute neutrophil countOrd ered By: Naif De La Vega on 03-11-2025 Neutrophils (Bld) [#/Vol] 3.8 10*3/uL 2.0-7.7 [facility] Anion gap in Serum or Plasma Ordered By: Naif De La Vega on 03-11-2025 Anion gap [Moles/Vol] 12 mmol/L 5-15 [facility] Automated lymphocyte count a s percentage of total leukocytesOrdered By: Naif De La Vega on 03-11-2025 Lymphocytes/100 WBC Auto (Unsp spec) 28.8 % 19-41 [facility] BUN/creatinine ratioOrdered By: Naif De La Vega on 03-11-2025 Urea nitrogen/Creatinine [Mass ratio] 2.6 mg/mg Low 10-20 [facility] Basophil percentageOrdered B y: Naif De La Vega on 03-11-2025 Basophils/100 WBC (Bld) 0.6 % 0-1 [facility] Bilirubin, totalOrdered By: Naif De La Vega on 03-11-2025 Bilirubin [Mass/Vol] 0.61 mg/dL 0.00-1.30 [facility] [facility] CBC W/Diff, Automatedon 02-19 Absolute Lymph 1.87 X10 3/uL Normal 0.83-4.51 [facility] Comment on above: Order Comment: Order Date: 11/17/24Order Info: [id number] - CBCD Performed By: #### L 500.4100, L100.0100, L500.4050, L502.0250, L501.9985 ####[facility] [address] [place], [address] Absolute Neut 3.8 X10 3/uL Normal 2.0-7.7 [facility] Comment on above: Order Comment: Order Date: 11/17/24Order Info: [id number] - CBCD Performed By: #### L 500.4100, L100.0100, L500.4050, L502.0250, L501.9985 ####[facility] [address] [place], [address] Basophils/100 WBC (Bld) 0.6 % Normal 0-1 [facility] Comment on above: Order Comment: Order Date: 11/17/24Order Info: [id number] - CBCD Performed By: #### L 500.4100, L100.0100, L500.4050, L502.0250, L501.9985 ####[facility] [address] [place], [address] Eosinophils/100 WBC (Bld) 4.0 % Normal 0-5 [facility] Comment on above: Order Comment: Order Date: 11/17/24Order Info: [id number] - CBCD Performed By: #### L 500.4100, L100.0100, L500.4050, L502.0250, L501.9985 ####[facility] [address] [place], [address] Erythrocyte distribution width (RBC) [Ratio] 13.3 % Normal 11.6-14.6 [facility] Comment on above: Order Comment: Order Date: 11/17/24Order Info: [id number] - CBCD Performed By: #### L 500.4100, L100.0100, L500.4050, L502.0250, L501.9985 ####[facility] [address] [place], [address] Hematocrit (Bld) [Volume fraction] 45.2 % Normal 40-54 [facility] Comment on above: Order Comment: Order Date: 11/17/24Order Info: [id number]- - CBCD Performed By: #### L 500.4100, L100.0100, L500.4050, L502.0250, L501.9985 ####[facility] [address] [place], [address] Hemoglobin (Bld) [Mass/Vol] 15.0 g/dL Normal 13.0-16.5 [facility] Comment on above: Order Comment: Order Date: 11/17/24Order Info: [id number] - CBCD Performed By: #### L 500.4100, L100.0100, L500.4050, L502.0250, L501.9985 ####[facility] [address] [place], [address] IG% 0.300 Normal 0.0-0.9 [facility] Comment on above: Order Comment: Order Date: 11/17/24Order Info: [id number]- - CBCD Result Comment: IG% - Immature Granulocytes (promyelocytes, myelocytes and metamyelocytes) > 1% indicates that a LEFT SHIFT is Present. Performed By: #### L 500.4100, L100.0100, L500.4050, L502.0250, L501.9985 ####[facility] [address] [place], [address] Lymphocytes/100 WBC (Bld) 28.8 % Normal 19-41 [facility] Comment on above: Order Comment: Order Date: 11/17/24Order Info: [id number] - CBCD Performed By: #### L 500.4100, L100.0100, L500.4050, L502.0250, L501.9985 ####[facility] [address] [place], [address] MCH (RBC) [Entitic mass] 29.1 pg Normal 27.0-32.0 [facility] Comment on above: Order Comment: Order Date: 11/17/24Order Info: [id number]- - CBCD Performed By: #### L 500.4100, L100.0100, L500.4050, L502.0250, L501.9985 ####[facility] [address] [place], [address] MCHC (RBC) [Mass/Vol] 33.2 g/dL Normal 32-36 [facility] Comment on above: Order Comment: Order Date: 11/17/24Order Info: [id number] - CBCD Performed By: #### L 500.4100, L100.0100, L500.4050, L502.0250, L501.9985 ####[facility] [address] [place], [address] MCV (RBC) [Entitic vol] 87.6 fL Normal 80-94 [facility] Comment on above: Order Comment: Order Date: 11/17/24Order Info: [id number] - CBCD Performed By: #### L 500.4100, L100.0100, L500.4050, L502.0250, L501.9985 ####[facility] [address] [place], [address] Monocytes/100 WBC (Bld) 8.5 % Normal 0-10 [facility] Comment on above: Order Comment: Order Date: 11/17/24Order Info: [id number] - CBCD Performed By: #### L 500.4100, L100.0100, L500.4050, L502.0250, L501.9985 ####[facility] [address] [place], [address] Neutrophils/100 WBC (Bld) 57.8 % Normal 47-70 [facility] Comment on above: Order Comment: Order Date: 11/17/24Order Info: [id number] - CBCD Performed By: #### L 500.4100, L100.0100, L500.4050, L502.0250, L501.9985 ####[facility] [address] [place], [address] Nucleated RBC (Bld) [#/Vol] 0 10*3/uL Normal 0-5 [facility] Comment on above: Order Comment: Order Date: 11/17/24Order Info: [id number] - CBCD Performed By: #### L 500.4100, L100.0100, L500.4050, L502.0250, L501.9985 ####[facility] [address] [place], [address] Platelet mean volume (Bld) [Entitic vol] 10.3 fL Normal 6.2-12.0 [facility] Comment on above: Order Comment: Order Date: 11/17/24Order Info: [id number] - CBCD Performed By: #### L 500.4100, L100.0100, L500.4050, L502.0250, L501.9985 ####[facility] [address] [place], [address] Platelets (Bld) [#/Vol] 252 10*3/uL Normal 150-450 [facility] Comment on above: Order Comment: Order Date: 11/17/24Order Info: [id number] - CBCD Performed By: #### L 500.4100, L100.0100, L500.4050, L502.0250, L501.9985 ####[facility] [address] [place], [address] RBC (Bld) [#/Vol] 5.16 10*6/uL Normal 4.6-6.2 [facility] Comment on above: Order Comment: Order Date: 11/17/24Order Info: [id number] - CBCD Performed By: #### L 500.4100, L100.0100, L500.4050, L502.0250, L501.9985 ####[facility] [address] [place], [place], [id number] RDW SD 43.0 fl Normal 35.1-43.9 [facility] Comment on above: Order Comment: Order Date: 11/17/24Order Info: [id number] - CBCD Performed By: #### L 500.4100, L100.0100, L500.4050, L502.0250, L501.9985 ####[facility] [address] [place], [place], [phone] WBC (Bld) [#/Vol] 6.5 10*3/uL Normal 4.4-11.0 [facility] Comment on above: Order Comment: Order Date: 11/17/24Order Info: [id number] - CBCD Performed By: #### L 500.4100, L100.0100, L500.4050, L502.0250, L501.9985 ####[facility] [address] [place], [place], [id number] Calculated very low density lipoprotein (VLDL) cholesterol measurementOrdered By: Naif De La Vega on 03-11-2025 Calculated very low density lipoprotein (VLDL) cholesterol measurement 18 mg/dL 5-40 [facility] Carbon dioxide, total [Moles /volume] in Central venous bloodOrdered By: Naif De La Vega on 03-11-2025 CO2 [Moles/Vol] 24.4 mmol/L 21.0-32.0 [facility] Chloride assayOrdered By: Janice De La Vega on 03-11-2025 Chloride [Moles/Vol] 102 mmol/L 98-108 [facility] Comprehensive Metabolic Prof ilon 03-11-2025 Albumin [Mass/Vol] 4.5 g/dL Normal 3.4-4.8 [facility] Comment on above: Order Comment: Order Date: 11/17/24Order Info: [id number] - CMPOrder Info: [id number] - LIPID Performed By: #### L 500.4100, L100.0100, L500.4050, L502.0250, L501.9985 ####[facility] [address] [place], [address] Albumin/Globulin [Mass ratio] 1.6 {ratio} Normal 0.9-2.4 [facility] Comment on above: Order Comment: Order Date: 11/17/24Order Info: [id number] - CMPOrder Info: [id number] - LIPID Performed By: #### L 500.4100, L100.0100, L500.4050, L502.0250, L501.9985 ####[facility] [address] [place], [address] ALK PHOS 80 U/L Normal 40-129 [facility] Comment on above: Order Comment: Order Date: 11/17/24Order Info: [id number] - CMPOrder Info: [id number] - LIPID Performed By: #### L 500.4100, L100.0100, L500.4050, L502.0250, L501.9985 ####[facility] [address] [place], [address] ALT [Catalytic activity/Vol] 15 U/L Normal <=46 [facility] Comment on above: Order Comment: Order Date: 11/17/24Order Info: [id number] - CMPOrder Info: [id number] - LIPID Performed By: #### L 500.4100, L100.0100, L500.4050, L502.0250, L501.9985 ####[facility] [address] [place], [address] AST [Catalytic activity/Vol] 17 U/L Normal <=37 [facility] Comment on above: Order Comment: Order Date: 11/17/24Order Info: [id number] - CMPOrder Info: [id number] - LIPID Performed By: #### L 500.4100, L100.0100, L500.4050, L502.0250, L501.9985 ####[facility] [address] [place], [address] Bilirubin [Mass/Vol] 0.61 mg/dL Normal 0.00-1.30 [facility] Comment on above: Order Comment: Order Date: 11/17/24Order Info: [id number] - CMPOrder Info: [id number] - LIPID Performed By: #### L 500.4100, L100.0100, L500.4050, L502.0250, L501.9985 ####[facility] [address] [place], [address] BUN/CRE 2.6 RATIO Low 10-20 [facility] Comment on above: Order Comment: Order Date: 11/17/24Order Info: [id number] - CMPOrder Info: [id number] - LIPID Performed By: #### L 500.4100, L100.0100, L500.4050, L502.0250, L501.9985 ####[facility] [address] [place], [address] Calcium [Mass/Vol] 10.0 mg/dL Normal 7.6-11.0 [facility] Comment on above: Order Comment: Order Date: 11/17/24Order Info: [id number] - CMPOrder Info: [id number] - LIPID Performed By: #### L 500.4100, L100.0100, L500.4050, L502.0250, L501.9985 ####[facility] [address] [place], [address] Chloride [Moles/Vol] 102 mmol/L Normal 98-108 [facility] Comment on above: Order Comment: Order Date: 11/17/24Order Info: [id number] - CMPOrder Info: [id number] - LIPID Performed By: #### L 500.4100, L100.0100, L500.4050, L502.0250, L501.9985 ####[facility] [address] [place], [address] CO2 [Moles/Vol] 24.4 mmol/L Normal 21.0-32.0 [facility] Comment on above: Order Comment: Order Date: 11/17/24Order Info: [id number]- - CMPOrder Info: [id number] - LIPID Performed By: #### L 500.4100, L100.0100, L500.4050, L502.0250, L501.9985 ####[facility] [address] [place], [address] Creatinine [Mass/Vol] 1.04 mg/dL Normal 0.70-1.20 [facility] Comment on above: Order Comment: Order Date: 11/17/24Order Info: [id number] - CMPOrder Info: [id number] - LIPID Performed By: #### L 500.4100, L100.0100, L500.4050, L502.0250, L501.9985 ####[facility] [address] [place], [address] GAP 12 Normal 5-15 [facility] Comment on above: Order Comment: Order Date: 11/17/24Order Info: [id number] - CMPOrder Info: [id number] - LIPID Performed By: #### L 500.4100, L100.0100, L500.4050, L502.0250, L501.9985 ####[facility] [address] [place], [address] GFR/1.73 sq M.predicted among non-blacks MDRD (S/P/Bld) [Vol rate/Area] 76 mL/min/{1.73_m2} Normal >60 [facility] Comment on above: Order Comment: Order Date: 11/17/24Order Info: [id number] - CMPOrder Info: [id number] - LIPID Result Comment: mL/m in/1.73m2 CKD-EPI Creatinine Equation (2020) Performed By: #### L 500.4100, L100.0100, L500.4050, L502.0250, L501.9985 ####[facility] [address] [place], [address] Globulin (S) [Mass/Vol] 2.8 g/dL Normal 2.2-4.2 [facility] Comment on above: Order Comment: Order Date: 11/17/24Order Info: [id number] - CMPOrder Info: [id number] - LIPID Performed By: #### L 500.4100, L100.0100, L500.4050, L502.0250, L501.9985 ####[facility] [address] [place], [address] Glucose [Mass/Vol] 159 mg/dL High 70-99 [facility] Comment on above: Order Comment: Order Date: 11/17/24Order Info: [id number] - CMPOrder Info: [id number] - LIPID Performed By: #### L 500.4100, L100.0100, L500.4050, L502.0250, L501.9985 ####[facility] [address] [place], [address] Potassium [Moles/Vol] 5.0 mmol/L Normal 3.3-5.1 [facility] Comment on above: Order Comment: Order Date: 11/17/24Order Info: [id number] - CMPOrder Info: [id number] - LIPID Performed By: #### L 500.4100, L100.0100, L500.4050, L502.0250, L501.9985 ####[facility] [address] [place], [address] Sodium [Moles/Vol] 138 mmol/L Normal 133-145 [facility] Comment on above: Order Comment: Order Date: 11/17/24Order Info: [id number] - CMPOrder Info: [id number] - LIPID Performed By: #### L 500.4100, L100.0100, L500.4050, L502.0250, L501.9985 ####[facility] [address] [place], [address] T PROT 7.3 g/dL Normal 5.9-8.4 [facility] Comment on above: Order Comment: Order Date: 11/17/24Order Info: [id number] - CMPOrder Info: [id number] - LIPID Performed By: #### L 500.4100, L100.0100, L500.4050, L502.0250, L501.9985 ####[facility] [address] [place], [address] Urea nitrogen [Mass/Vol] 3 mg/dL Low 4-19 [facility] Comment on above: Order Comment: Order Date: 11/17/24Order Info: [id number] - CMPOrder Info: [id number] - LIPID Performed By: #### L 500.4100, L100.0100, L500.4050, L502.0250, L501.9985 ####[facility] [address] [place], [place], [id number] Eosinophil percentageOrdered By: Naif De La Vega on 03-11-2025 Eosinophils/100 WBC (Bld) 4.0 % 0-5 [facility] Erythrocyte distribution wid th ratioOrdered By: Naif De La Vega on 03-11-2025 Erythrocyte distribution width (RBC) [Ratio] 13.3 % 11.6-14.6 [facility] Erythrocyte distribution wid th standard deviationOrdered By: Naif De La Vega on 03-11-2025 Erythrocyte distribution width (RBC) [Ratio] 43.0 fl 35.1-43.9 [facility] Glomerular filtration rate ( GFR) estimation/1.73 sq m using serum, plasma, or whole bOrdered By: Naif De La Vega on 03-11-2025 GFR/1.73 sq M.predicted among non-blacks MDRD (S/P/Bld) [Vol rate/Area] 76 mL/min/{1.73_m2} >60 [facility] Comment on above: mL/min/1.73m2 CKD-EP I Creatinine Equation (2020) Hematocrit Auto (Bld) [Volum e fraction]Ordered By: Naif De La Vega on 03-11-2025 Hematocrit (Bld) [Volume fraction] 45.2 % 40-54 [facility] Hemoglobin A1con 03-11-2025 HbA1c (Bld) [Mass fraction] 7.2 % High <=5.6 [facility] Comment on above: Order Comment: Order Date: 11/17/24Order Info: [id number] - A1C Result Comment: Norm al < 5.7 % Prediabetic 5.7 - 6.4 % Diabetic >or= 6.5 % Please note range changes. Performed By: #### L 500.4100, L100.0100, L500.4050, L502.0250, L501.9985 ####[facility] [address] [place], [place], [id number] Hemoglobin A1c percentageOrd ered By: Naif De La Vega on 03-11-2025 HbA1c (Bld) [Mass fraction] 7.2 % High <5.7 [facility] Comment on above: Normal < 5.7 % Predi abetic 5.7 - 6.4 % Diabetic >or= 6.5 % Please note range changes. Hemoglobin measurementOrdere d By: Naif De La Vega on 03-11-2025 Hemoglobin (Bld) [Mass/Vol] 15.0 g/dL 13.0-16.5 [facility] Immature granulocytes/100 WB C Auto (Bld)Ordered By: Naif De La Vega on 03-11-2025 Immature granulocytes/100 WBC (Bld) 0.300 % 0.0-0.9 [facility] Comment on above: IG% - Immature Granu locytes (promyelocytes, myelocytes and metamyelocytes) > 1% indicates that a LEFT SHIFT is Present. LDL calc ser/plasOrdered By: Naif De La Vega on 03-11-2025 Cholesterol in LDL [Mass/Vol] 62 mg/dL [facility] Comment on above: Qwphjafrhg=230-207 m g/dL & Higher Tmhw=310 mg/dL or greater Laboratory - Chemistry and C hemistry - challengeOrdered By: Naif De La Vega on 03-11-2025 AST [Catalytic activity/Vol] 17 U/L <38 [facility] Lipid Profileon 03-11-2025 CHOL:HDL 2.63 Normal [facility] Comment on above: Order Comment: Order Date: 11/17/24Order Info: [id number] - CMPOrder Info: [id number] - LIPID Performed By: #### L 500.4100, L100.0100, L500.4050, L502.0250, L501.9985 ####[facility] [address] [place], [place], [id number] Cholesterol [Mass/Vol] 129 mg/dL Normal <=200 [facility] Comment on above: Order Comment: Order Date: 11/17/24Order Info: [id number] - CMPOrder Info: [id number] - LIPID Result Comment: Chol esterol level, Desirable <200 mg/dL Borderline high cholesterol 200-239 mg/dL High cholesterol >=240 mg/dL Recommendations of the NCEP Adult Treatment Panel for the following risk-cutoff thresholds for the [place] population. Performed By: #### L 500.4100, L100.0100, L500.4050, L502.0250, L501.9985 ####[facility] [address] [place], [address] Cholesterol in HDL [Mass/Vol] 49 mg/dL Normal [facility] Comment on above: Order Comment: Order Date: 11/17/24Order Info: [id number] - CMPOrder Info: [id number] - LIPID Result Comment: [place] on[place] Cholesterol Education Program (NCEP) guidelines: <40 mg/dL: Low HDL-cholesterol (major risk factor for CHD) >= 60 mg/dL: High HDL-cholesterol (negative risk factor for CHD) HDL-cholesterol is affected by a number of factors, e.g. smoking, exercise, hormones, sex and age. Performed By: #### L 500.4100, L100.0100, L500.4050, L502.0250, L501.9985 ####[facility] [address] [place], [address] Cholesterol in LDL [Mass/Vol] 62 mg/dL Normal [facility] Comment on above: Order Comment: Order Date: 11/17/24Order Info: [id number] - CMPOrder Info: [id number] - LIPID Result Comment: Bord skdoxd=945-211 mg/dL Higher Zwck=206 mg/dL or greater Performed By: #### L 500.4100, L100.0100, L500.4050, L502.0250, L501.9985 ####[facility] [address] [place], [address] Cholesterol in VLDL [Mass/Vol] 18 mg/dL Normal 5-40 [facility] Comment on above: Order Comment: Order Date: 11/17/24Order Info: [id number] - CMPOrder Info: [id number] - LIPID Performed By: #### L 500.4100, L100.0100, L500.4050, L502.0250, L501.9985 ####[facility] [address] [place], [address] Triglyceride [Mass/Vol] 90 mg/dL Normal [facility] Comment on above: Order Comment: Order Date: 11/17/24Order Info: [id number] - CMPOrder Info: [id number] - LIPID Result Comment: The drugs N-Acetylcysteine and Metamizole may falsely depress this assay. Normal range: <150 mg/dL Borderline High: 150-199 mg/dL High: 200-499 mg/dL Very High: >500 mg/dL Performed By: #### L 500.4100, L100.0100, L500.4050, L502.0250, L501.9985 ####[facility] [address] [place], [place], [id number] MCV (mean corpuscular volume ) determinationOrdered By: Naif De La Vega on 03-11-2025 MCV (RBC) [Entitic vol] 87.6 fL 80-94 [facility] Mean corpuscular hemoglobin (MCH) determinationOrdered By: Naif De La Vega on 03-11-2025 MCH (RBC) [Entitic mass] 29.1 pg 27.0-32.0 [facility] Mean corpuscular hemoglobin concentration (MCHC) determinationOrdered By: Naif De La Vega on 03-11-2025 MCHC (RBC) [Mass/Vol] 33.2 g/dL 32-36 [facility] Mean platelet volume determi nationOrdered By: Naif De La Vega on 03-11-2025 Platelet mean volume (Bld) [Entitic vol] 10.3 fL 6.2-12.0 [facility] Microalb:Creat Ratio,Random URon 03-11-2025 Creatinine [Mass/Vol] 50.30 mg/dL Normal 39.00- 259. 00 [facility] Comment on above: Order Comment: Order Date: 11/17/24Order Info: [id number] - MIACRE Result Comment: UTO SENT CUP HOME Performed By: #### L 500.4100, L100.0100, L500.4050, L502.0250, L501.9985 ####[facility] [address] [place], [place], [id number] MALB:CREAT UNABLE TO CALCULATE Normal [facility] Comment on above: Order Comment: Order Date: 11/17/24Order Info: [id number] - MIACRE Result Comment: UTO SENT CUP HOME Performed By: #### L 500.4100, L100.0100, L500.4050, L502.0250, L501.9985 ####[facility] [address] [place], [place], [address] MICROALBUMIN,UR < 12.0 Normal NO RANGE EST. [facility] Comment on above: Order Comment: Order Date: 11/17/24Order Info: [id number] - MIACRE Result Comment: UTO SENT CUP HOME Performed By: #### L 500.4100, L100.0100, L500.4050, L502.0250, L501.9985 ####[facility] [address] [place], [place], [address] Microalbumin/creat ratio urO rdered By: Naif De La Vega on 03-11-2025 Urine microalbumin/creatini ne ratio measurement UNABLE TO CALCULATE mg/g CRE [facility] Monocyte percentageOrdered B y: Naif De La Vega on 03-11-2025 Monocytes/100 WBC (Bld) 8.5 % 0-10 [facility] Neutrophil percentageOrdered By: Naif De La Vega on 03-11-2025 Neutrophils/100 WBC (Bld) 57.8 % 47-70 [facility] Nucleated red blood cell per centageOrdered By: Naif De La Vega on 03-11-2025 Nucleated RBC/100 WBC (Bld) [Ratio] 0 % 0-5 [facility] Platelet countOrdered By: Janice De La Vega on 03-11-2025 Platelets (Bld) [#/Vol] 252 10*3/uL 150-450 [facility] Potassium measurement (mass/ volume)Ordered By: Naif De La Vega on 03-11-2025 Potassium (Unsp spec) [Mass/Vol] 5.0 mmol/L 3.3-5.1 [facility] RBC Auto (Bld) [#/Vol]Ordere d By: Naif De La Vega on 03-11-2025 RBC (Bld) [#/Vol] 5.16 10*6/uL 4.6-6.2 [facility] Random urine creatinine micaela urement (mass/volume)Ordered By: Naif De La Vega on 03-11-2025 Creatinine Unsp time (U) [Mass/Vol] 50.30 mg/dL 39.00-259. 00 [facility] Screening total cholesterol/ high density lipoprotein (HDL) cholesterol ratioOrdered By: Naif De La Vega on 03-11-2025 Cholesterol.total/Cho lesterol in HDL [Mass ratio] 2.63 {ratio} [facility] Serum creatinine measurement (mass/volume)Ordered By: Naif De La Vega on 03-11-2025 Creatinine [Mass/Vol] 1.04 mg/dL 0.70-1.20 [facility] Serum globulin measurementOr dered By: Naif De La Vega on 03-11-2025 Globulin (S) [Mass/Vol] 2.8 g/dL 2.2-4.2 [facility] Serum glucose measurement (m ass/volume)Ordered By: Naif De La Vega on 03-11-2025 Glucose [Mass/Vol] 159 mg/dL High 70-99 [facility] Serum or plasma alanine markham otransferase (ALT) measurementOrdered By: Naif De La Vega on 03-11-2025 ALT [Catalytic activity/Vol] 15 U/L <47 [facility] Serum or plasma albumin micaela urement (mass/volume)Ordered By: Naif De La Vega on 03-11-2025 Albumin [Mass/Vol] 4.5 g/dL 3.4-4.8 [facility] Serum or plasma albumin/glob ulin mass ratioOrdered By: Naif De La Vega on 03-11-2025 Albumin/Globulin [Mass ratio] 1.6 {ratio} 0.9-2.4 [facility] Serum or plasma alkaline ottoniel sphatase measurementOrdered By: Naif De La Vega on 03-11-2025 ALP [Catalytic activity/Vol] 80 U/L 40-129 [facility] Serum or plasma calcium micaela urement (mass/volume)Ordered By: Naif De La Vega on 03-11-2025 Calcium [Mass/Vol] 10.0 mg/dL 7.6-11.0 [facility] Serum or plasma cholesterol in HDL measurement (mass/volume)Ordered By: Naif De La Vega on 03-11-2025 Cholesterol in HDL [Mass/Vol] 49 mg/dL >40 [facility] Comment on above: National Cholesterol Education Program (NCEP) guidelines:<40 mg/dL: Low HDL-cholesterol (major risk factor for CHD)>= 60 mg/dL: High HDL-cholesterol (negative risk factor for CHD)HDL-cholesterol is affected by a number of factors, e.g. smoking, exercise, hormones, sex and age. Serum or plasma cholesterol measurement (mass/volume)Ordered By: Naif De La Vega on 03-11-2025 Cholesterol [Mass/Vol] 129 mg/dL <201 [facility] Comment on above: Cholesterol level, D esirable <200 mg/dLBorderline high cholesterol 200-239 mg/dLHigh cholesterol >=240 mg/dLRecommendations of the NCEP Adult Treatment Panel for the following risk-cutoff thresholds for the [place] population. Serum or plasma urea nitroge n measurement (mass/volume)Ordered By: Naif De La Vega on 03-11-2025 Urea nitrogen [Mass/Vol] 3 mg/dL Low 4-19 [facility] Sodium levelOrdered By: Naif De La Vega on 03-11-2025 Sodium [Moles/Vol] 138 mmol/L 133-145 [facility] Total proteinOrdered By: Marcus De La Vega on 03-11-2025 Protein [Mass/Vol] 7.3 g/dL 5.9-8.4 [facility] Triglycerides measurementOrd ered By: Naif De La Vega on 03-11-2025 Triglyceride [Mass/Vol] 90 mg/dL <199 [facility] Comment on above: The drugs N-Acetylcy steine and Metamizole may falsely depress this assay. Normal range: <150 mg/dLBorderline High: 150-199 mg/dLHigh: 200-499 mg/dLVery High: >500 mg/dL Urine albumin measurement [facility] detection limit of 20 mg/L or less (mass/volume)Ordered By: Naif De La Vega on 03-11-2025 Albumin DL <= 20 mg/L (U) [Mass/Vol] < 12.0 mg/L NO RANGE EST. [facility] White blood cell (WBC) count Ordered By: Naif De La Vega on 03-11-2025 WBC (Bld) [#/Vol] 6.5 10*3/uL 4.4-11.0 [facility] Vitamin B12on 11-09-2024 Cobalamin (Vitamin B12) [Mass/Vol] 481 pg/mL Normal 211-911 [facility] Comment on above: Order Comment: Order Date: 07/08/24Order Info: 9 - [id number] Info: [id number] - VITD25 Performed By: #### L 503.0105, L500.4100, L500.4050, L502.0250, L506.1000 ####[facility] [address] [place], [address] Vitamin D,25 Hydroxyon 11-09 Vitamin D 25-OH 52.4 ng/mL Normal [facility] Comment on above: Order Comment: Order Date: 07/08/24Order Info: 9 - [id number] Info: 10008-0 - VITD25 Result Comment: Marcia min D 25(OH) Status Range Deficiency <20 ng/mL (50nmol/L) Insufficiency 20 - 30 ng/mL (50 - 75 nmol/L) Sufficiency 30 - 100 ng/mL (75 - 250 nmol/L) Toxicity >100 ng/mL (>250 nmol/L) Performed By: #### L 503.0105, L500.4100, L500.4050, L502.0250, L506.1000 ####[facility] [address] [place], [address] CBC W/Diff, Automatedon 10-21 Absolute Lymph 1.47 X10 3/uL Normal 0.83-4.51 [facility] Comment on above: Order Comment: Order Date: 07/08/24Order Info: 0184-1 - CBCD Performed By: #### L 100.0100, L501.9985 ####[facility] [address] [place], [address] Absolute Neut 4.4 X10 3/uL Normal 2.0-7.7 [facility] Comment on above: Order Comment: Order Date: 07/08/24Order Info: 0184-1 - CBCD Performed By: #### L 100.0100, L501.9985 ####[facility] [address] [place], [address] Basophils/100 WBC (Bld) 0.4 % Normal 0-1 [facility] Comment on above: Order Comment: Order Date: 07/08/24Order Info: 0184-1 - CBCD Performed By: #### L 100.0100, L501.9985 ####[facility] [address] [place], [address] Eosinophils/100 WBC (Bld) 3.7 % Normal 0-5 [facility] Comment on above: Order Comment: Order Date: 07/08/24Order Info: 0184-1 - CBCD Performed By: #### L 100.0100, L501.9985 ####[facility] [address] [place], [address] Erythrocyte distribution width (RBC) [Ratio] 13.2 % Normal 11.6-14.6 [facility] Comment on above: Order Comment: Order Date: 07/08/24Order Info: 0184-1 - CBCD Performed By: #### L 100.0100, L501.9985 ####[facility] [address] [place], [address] Hematocrit (Bld) [Volume fraction] 41.3 % Normal 40-54 [facility] Comment on above: Order Comment: Order Date: 07/08/24Order Info: 0184-1 - CBCD Performed By: #### L 100.0100, L501.9985 ####[facility] [address] [place], [address] Hemoglobin (Bld) [Mass/Vol] 13.6 g/dL Normal 13.0-16.5 [facility] Comment on above: Order Comment: Order Date: 07/08/24Order Info: 0184-1 - CBCD Performed By: #### L 100.0100, L501.9985 ####[facility] [address] [place], [address] IG% 0.400 Normal 0.0-0.9 [facility] Comment on above: Order Comment: Order Date: 07/08/24Order Info: 018-1 - CBCD Result Comment: IG% - Immature Granulocytes (promyelocytes, myelocytes and metamyelocytes) > 1% indicates that a LEFT SHIFT is Present. Performed By: #### L 100.0100, L501.9985 ####[facility] [address] [place], [address] Lymphocytes/100 WBC (Bld) 21.6 % Normal 19-41 [facility] Comment on above: Order Comment: Order Date: 07/08/24Order Info: 018- - CBCD Performed By: #### L 100.0100, L501.9985 ####[facility] [address] [place], [address] MCH (RBC) [Entitic mass] 28.5 pg Normal 27.0-32.0 [facility] Comment on above: Order Comment: Order Date: 07/08/24Order Info: 018- - CBCD Performed By: #### L 100.0100, L501.9985 ####[facility] [address] [place], [address] MCHC (RBC) [Mass/Vol] 32.9 g/dL Normal 32-36 [facility] Comment on above: Order Comment: Order Date: 07/08/24Order Info: 018- - CBCD Performed By: #### L 100.0100, L501.9985 ####[facility] [address] [place], [address] MCV (RBC) [Entitic vol] 86.6 fL Normal 80-94 [facility] Comment on above: Order Comment: Order Date: 07/08/24Order Info: 018- - CBCD Performed By: #### L 100.0100, L501.9985 ####[facility] [address] [place], [address] Monocytes/100 WBC (Bld) 9.4 % Normal 0-10 [facility] Comment on above: Order Comment: Order Date: 07/08/24Order Info: 4-1 - CBCD Performed By: #### L 100.0100, L501.9985 ####[facility] [address] [place], [address] Neutrophils/100 WBC (Bld) 64.5 % Normal 47-70 [facility] Comment on above: Order Comment: Order Date: 07/08/24Order Info: 4-1 - CBCD Performed By: #### L 100.0100, L501.9985 ####[facility] [address] [place], [address] Nucleated RBC (Bld) [#/Vol] 0 10*3/uL Normal 0-5 [facility] Comment on above: Order Comment: Order Date: 07/08/24Order Info: 183- - CBCD Performed By: #### L 100.0100, L501.9985 ####[facility] [address] [place], [address] Platelet mean volume (Bld) [Entitic vol] 9.8 fL Normal 6.2-12.0 [facility] Comment on above: Order Comment: Order Date: 07/08/24Order Info: 183-1 - CBCD Performed By: #### L 100.0100, L501.9985 ####[facility] [address] [place], [address] Platelets (Bld) [#/Vol] 246 10*3/uL Normal 150-450 [facility] Comment on above: Order Comment: Order Date: 07/08/24Order Info: 0184-1 - CBCD Performed By: #### L 100.0100, L501.9985 ####[facility] [address] [place], [address] RBC (Bld) [#/Vol] 4.77 10*6/uL Normal 4.6-6.2 [facility] Comment on above: Order Comment: Order Date: 07/08/24Order Info: 0184-1 - CBCD Performed By: #### L 100.0100, L501.9985 ####[facility] [address] [place], [address] RDW SD 42.2 fl Normal 35.1-43.9 [facility] Comment on above: Order Comment: Order Date: 07/08/24Order Info: 018-1 - CBCD Performed By: #### L 100.0100, L501.9985 ####[facility] [address] [place], [address] WBC (Bld) [#/Vol] 6.8 10*3/uL Normal 4.4-11.0 [facility] Comment on above: Order Comment: Order Date: 07/08/24Order Info: 018- - CBCD Performed By: #### L 100.0100, L501.9985 ####[facility] [address] [place], [address] Cardiology Visit Reporton Cardiology Visit Report [facility] [address] [place] [address] OFFICE VISIT Date of Service: 11/06/24 MR#: [id number] Acct: [id number] Name: JANETT VUONG Rep #: [id number] : 1950 Provider: KEYSHAWN Jasso Age/Sex: 74/M Location: [facility] Status: Signed HPI HPI History of Present Illness Details: Janett Vuong is a 74-year-old gentleman that presents here today for a cardiovascular follow-up. He has a history of coronary artery disease with stenting in 2003. He also has a history of hypertension, hyperlipidemia and syncope in which he had a loop recorder. He requested that his loop recorder be removed, this was removed in December of 2020. From a cardiac standpoint, patient is doing well. He does not have any chest discomfort/heaviness/tightnes s. He does not have any worsening symptoms of shortness of breath. He denies any PND. He does not have any orthopnea. He does not have any symptoms of congestive heart failure. He does not have any palpitations that he is aware of. He does not have any lightheadedness or dizziness. He does not have any near-syncope or syncope. He does not have any lower extremity edema. He does not have any symptoms of claudication. 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 Is patient in pain?: No Allergies atorvastatin (From Lipitor) Allergy (Severe, Verified 11/06/24 10:40) Muscle aches simvastatin (From Zocor) Adverse Reaction (Severe, Verified 11/06/24 10:40) Hives Medications ???Medication ???Instructions ???Recorded ???Confirmed ???Type metoprolol succinate 25 mg 25 mg PO DAILY 90 days #90 tabs 12/25/18 11/06/24 History tablet,extended release 24 hr rosuvastatin 10 mg tablet 10 mg PO DAILY 12/25/18 11/06/24 History aspirin 81 mg tablet,delayed 81 mg PO DAILY 09/03/19 11/06/24 History release (Adult Low Dose Aspirin) coenzyme Q10 100 mg capsule (Co 100 mg PO DAILY 09/03/19 11/06/24 History Q-10) clopidogrel 75 mg tablet (Plavix) 75 mg PO DAILY 03/08/20 11/06/24 History cholecalciferol (vitamin D3) 25 25 mcg PO DAILY 12/20/20 11/06/24 History mcg (1,000 unit) capsule cyanocobalamin (vitamin B-12) 100 100 mcg PO .3xweek 12/20/20 11/06/24 History mcg tablet (Vitamin B-12) metformin 500 mg tablet 1,000 mg PO BID 12/20/20 11/06/24 History amlodipine 10 mg tablet 10 mg PO DAILY 01/26/22 11/06/24 History nitroglycerin 0.4 mg sublingual 0.4 mg sublingual Q5M PRN Chest 05/09/23 11/06/24 Rx tablet Pain #25 tabs Have you fallen in the past year?: No PFSH Medical History Wears glasses Wears dentures Wears partial dentures Cancer Alcohol use Diabetes Prostate disease High cholesterol Restless legs Blackout Dietary restriction History of IBS Smoker Chronic cough Leg cramps History of stress test History of echocardiogram Hypertension Cardiology follow-up encounter Status post placement of implantable loop recorder Syncope 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 (1994) Left carotid artery stenosis Essential hypertension Atherosclerosis of [place] coronary artery of [place] heart without angina pectoris Headache Hyperlipidemia Surgical History Encounter for loop recorder at end of battery life (12/27/20) History of transurethral resection of prostate (11/05/18) Hx of transurethral destruction of bladder lesion (11/05/18) History of loop recorder (10/06/18) History of coronary artery stent placement (03/14/04) History of left heart catheterization (02/2001) History of appendectomy History of tonsillectomy Family History Father CAD (coronary artery disease) Hx CABG Diabetes Myocardial infarction Mother Breast cancer CVA (cerebral vascular accident) Sister Cancer Pancreatic cancer Diabetes Brother Myocardial infarction, Onset Age: 54 Other Family history of CVA Social History Smoking Status: Current every day smoker tobacco type: cigarettes alcohol intake: current alcohol intake frequency: a few times a week Alcohol type: beer and hard liquor substance use type: does not use caffeine: Yes Type: coffee Number of servings: 5 what type of physical activity do you participate in: none seatbelt use: always do you feel safe at home: Yes (more content not included)... Normal [facility] Comprehensive Metabolic Prof ilon 11-06-2024 Albumin [Mass/Vol] 4.1 g/dL Normal 3.2-5.0 [facility] Comment on above: Order Comment: Order Date: 07/08/24Order Info: 0786-1 - CMPOrder Info: [id number] - LIPID Performed By: #### L 503.0105, L500.4100, L500.4050, L502.0250, L506.1000 ####[facility] [address] [place], [address] Albumin/Globulin [Mass ratio] 1.2 {ratio} Normal 0.9-2.4 [facility] Comment on above: Order Comment: Order Date: 07/08/24Order Info: 0786-1 - CMPOrder Info: [id number] - LIPID Performed By: #### L 503.0105, L500.4100, L500.4050, L502.0250, L506.1000 ####[facility] [address] [place], [address] ALK P 83 U/L Normal 45-117 [facility] Comment on above: Order Comment: Order Date: 07/08/24Order Info: 0786-1 - CMPOrder Info: [id number] - LIPID Performed By: #### L 503.0105, L500.4100, L500.4050, L502.0250, L506.1000 ####[facility] [address] [place], [address] ALT [Catalytic activity/Vol] 23 U/L Normal 16-61 [facility] Comment on above: Order Comment: Order Date: 07/08/24Order Info: 0786-1 - CMPOrder Info: [id number] - LIPID Performed By: #### L 503.0105, L500.4100, L500.4050, L502.0250, L506.1000 ####[facility] [address] [place], [address] AST [Catalytic activity/Vol] 11 U/L Low 15-37 [facility] Comment on above: Order Comment: Order Date: 07/08/24Order Info: 0786-1 - CMPOrder Info: [id number] - LIPID Performed By: #### L 503.0105, L500.4100, L500.4050, L502.0250, L506.1000 ####[facility] [address] [place], [address] Bilirubin [Mass/Vol] 0.80 mg/dL Normal 0.20-1.00 [facility] Comment on above: Order Comment: Order Date: 07/08/24Order Info: 0786-1 - CMPOrder Info: [id number] - LIPID Result Comment: For patients on eltrombopag therapy, use of Dimension [place] TBIL is not recommended. Performed By: #### L 503.0105, L500.4100, L500.4050, L502.0250, L506.1000 ####[facility] [address] [place], [address] BUN/CRE 17.0 RATIO Normal 10-20 [facility] Comment on above: Order Comment: Order Date: 07/08/24Order Info: 0786-1 - CMPOrder Info: [id number] - LIPID Performed By: #### L 503.0105, L500.4100, L500.4050, L502.0250, L506.1000 ####[facility] [address] [place], [address] CA,Total 9.6 mg/dL Normal 8.5-10.1 [facility] Comment on above: Order Comment: Order Date: 07/08/24Order Info: 0786-1 - CMPOrder Info: [id number] - LIPID Performed By: #### L 503.0105, L500.4100, L500.4050, L502.0250, L506.1000 ####[facility] [address] [place], [address] Chloride [Moles/Vol] 101 mmol/L Normal 98-107 [facility] Comment on above: Order Comment: Order Date: 07/08/24Order Info: 0786-1 - CMPOrder Info: [id number] - LIPID Performed By: #### L 503.0105, L500.4100, L500.4050, L502.0250, L506.1000 ####[facility] [address] [place], [address] CO2 [Moles/Vol] 26.0 mmol/L Normal 21.0-32.0 [facility] Comment on above: Order Comment: Order Date: 07/08/24Order Info: 0786-1 - CMPOrder Info: [id number] - LIPID Performed By: #### L 503.0105, L500.4100, L500.4050, L502.0250, L506.1000 ####[facility] [address] [place], [address] Creatinine [Mass/Vol] 0.94 mg/dL Normal 0.70-1.30 [facility] Comment on above: Order Comment: Order Date: 07/08/24Order Info: 0786-1 - CMPOrder Info: [id number] - LIPID Result Comment: The validity of the calculated GFR GFRAA in patients over 70 years has not been determined. Clinical correlation is essential. Performed By: #### L 503.0105, L500.4100, L500.4050, L502.0250, L506.1000 ####[facility] [address] [place], [address] EST GFR - AA 101 mL/min Normal >60 [facility] Comment on above: Order Comment: Order Date: 07/08/24Order Info: 0786-1 - CMPOrder Info: [id number] - LIPID Result Comment: Afri can [place] GFR Calc Performed By: #### L 503.0105, L500.4100, L500.4050, L502.0250, L506.1000 ####[facility] [address] [place], [address] GAP 5 Normal 5-15 [facility] Comment on above: Order Comment: Order Date: 07/08/24Order Info: 0786-1 - CMPOrder Info: [id number] - LIPID Performed By: #### L 503.0105, L500.4100, L500.4050, L502.0250, L506.1000 ####[facility] [address], [address] GFR/1.73 sq M.predicted among non-blacks MDRD (S/P/Bld) [Vol rate/Area] 84 mL/min/{1.73_m2} Normal >60 [facility] Comment on above: Order Comment: Order Date: 07/08/24Order Info: 0786-1 - CMPOrder Info: [id number] - LIPID Result Comment: Non- GFR Calc Performed By: #### L 503.0105, L500.4100, L500.4050, L502.0250, L506.1000 ####[facility] [address], [address] Globulin (S) [Mass/Vol] 3.5 g/dL Normal 2.2-4.2 [facility] Comment on above: Order Comment: Order Date: 07/08/24Order Info: 0786-1 - CMPOrder Info: [id number] - LIPID Performed By: #### L 503.0105, L500.4100, L500.4050, L502.0250, L506.1000 ####[facility] [address] [place], [address] Glucose [Mass/Vol] 166 mg/dL High 74-106 [facility] Comment on above: Order Comment: Order Date: 07/08/24Order Info: 0786-1 - CMPOrder Info: [id number] - LIPID Result Comment: Fast ing Glucose result greater than or equal to 126 mg/dL suggests DIABETES MELLITUS per A.D.A. criteria. Performed By: #### L 503.0105, L500.4100, L500.4050, L502.0250, L506.1000 ####[facility] [address] [place], [address] Potassium [Moles/Vol] 4.3 mmol/L Normal 3.5-5.1 [facility] Comment on above: Order Comment: Order Date: 07/08/24Order Info: 0786-1 - CMPOrder Info: [id number] - LIPID Performed By: #### L 503.0105, L500.4100, L500.4050, L502.0250, L506.1000 ####[facility] [address] [place], [address] Sodium [Moles/Vol] 132 mmol/L Low 136-145 [facility] Comment on above: Order Comment: Order Date: 07/08/24Order Info: 0786- - CMPOrder Info: [id number] - LIPID Performed By: #### L 503.0105, L500.4100, L500.4050, L502.0250, L506.1000 ####[facility] [address] [place], [address] T PROT 7.6 g/dL Normal 6.4-8.2 [facility] Comment on above: Order Comment: Order Date: 07/08/24Order Info: [id number] - CMPOrder Info: [id number] - LIPID Performed By: #### L 503.0105, L500.4100, L500.4050, L502.0250, L506.1000 ####[facility] [address] [place], [address] Urea nitrogen [Mass/Vol] 16 mg/dL Normal 7-18 [facility] Comment on above: Order Comment: Order Date: 07/08/24Order Info: 0786-1 - CMPOrder Info: [id number] - LIPID Performed By: #### L 503.0105, L500.4100, L500.4050, L502.0250, L506.1000 ####[facility] [address] [place], [address] Hemoglobin A1con 11-06-2024 HbA1c (Bld) [Mass fraction] 6.9 % High 3.8-5.6 [facility] Comment on above: Order Comment: Order Date: 07/08/24Order Info: [id number] - A1C Result Comment: Norm al < 5.7 % Prediabetic 5.7 - 6.4 % Diabetic >or= 6.5 % Please note range changes. Performed By: #### L 100.0100, L501.9985 ####[facility] [address] [place], [address] Lipid Profileon 11-06-2024 Cholesterol [Mass/Vol] 122 mg/dL Normal 200 [facility] Comment on above: Order Comment: Order Date: 07/08/24Order Info: 0786-1 - CMPOrder Info: [id number] - LIPID Result Comment: <200 mg/dL Desirable 200-240 mg/dL Borderline >240 mg/dL High Risk Performed By: #### L 503.0105, L500.4100, L500.4050, L502.0250, L506.1000 ####[facility] [address] [place], [address] Cholesterol in HDL [Mass/Vol] 56 mg/dL Normal [facility] Comment on above: Order Comment: Order Date: 07/08/24Order Info: 0786-1 - CMPOrder Info: [id number] - LIPID Result Comment: The drugs N-Acetylcysteine and Metamizole may falsely depress this assay. Reference Range HDL <40 mg/dL Low HDL Cholesterol HDL >or= 60 mg/dL High HDL Cholesterol Performed By: #### L 503.0105, L500.4100, L500.4050, L502.0250, L506.1000 ####[facility] [address] [place], [address] Cholesterol in LDL [Mass/Vol] 48 mg/dL Normal 0-130 [facility] Comment on above: Order Comment: Order Date: 07/08/24Order Info: 0786-1 - CMPOrder Info: [id number] - LIPID Performed By: #### L 503.0105, L500.4100, L500.4050, L502.0250, L506.1000 ####[facility] [address] [place], [address] Cholesterol in VLDL [Mass/Vol] 18 mg/dL Normal 5-40 [facility] Comment on above: Order Comment: Order Date: 07/08/24Order Info: [id number] - CMPOrder Info: [id number] - LIPID Performed By: #### L 503.0105, L500.4100, L500.4050, L502.0250, L506.1000 ####[facility] [address] [place], [address] Triglyceride [Mass/Vol] 90 mg/dL Normal [facility] Comment on above: Order Comment: Order Date: 07/08/24Order Info: [id number] - CMPOrder Info: [id number] - LIPID Result Comment: The drugs N-Acetylcysteine and Metamizole may falsely depress this assay. Serum Triglycerides Reference Interval Normal <150 mg/dL Borderline high 150 - 199 mg/dL High 200 - 499 mg/dL Very High > or = 500 mg/dL Performed By: #### L 503.0105, L500.4100, L500.4050, L502.0250, L506.1000 ####[facility] [address] [place], [address] Microalb:Creat Ratio,Random URon 11-06-2024 Creatinine [Mass/Vol] 58.20 mg/dL Normal NO RAN GE EST. [facility] Comment on above: Order Comment: Order Date: 07/08/24Order Info: [id number] - MIACRE Performed By: #### L 503.0105, L500.4100, L500.4050, L502.0250, L506.1000 ####[facility] [address] [place], [address] MALB:CRE 24.9 mg/g CRE Normal <30 mg/g CRE [facility] Comment on above: Order Comment: Order Date: 07/08/24Order Info: [id number] - MIACRE Performed By: #### L 503.0105, L500.4100, L500.4050, L502.0250, L506.1000 ####[facility] [address] [place], [address] MICROALBUMIN,UR 14.5 mg/L Normal NO RANGE EST. [facility] Comment on above: Order Comment: Order Date: 07/08/24Order Info: [id number] - MIACRE Performed By: #### L 503.0105, L500.4100, L500.4050, L502.0250, L506.1000 ####[facility] [address] [place], [address] Urinalysis, Completeon 11-06 BACTERIA 0 SEEN Normal None Seen [facility] Comment on above: Order Comment: Urine , Random Performed By: #### L 400.0001 ####[facility] [address] [place], [address] EPI,SQUAMOUS 0 SEEN Normal 0-5 [facility] Comment on above: Order Comment: Urine , Random Performed By: #### L 400.0001 ####[facility] [address] [place], [address] Mucus Ql (Urine sed) 0 SEEN Normal [facility] Comment on above: Order Comment: Urine , Random Performed By: #### L 400.0001 ####[facility] [address] [place], [address] RBC 0 SEEN Normal 0-5 [facility] Comment on above: Order Comment: Urine , Random Performed By: #### L 400.0001 ####[facility] [address] [place], [address] WBC 0 SEEN Normal 0-5 [facility] Comment on above: Order Comment: Urine , Random Performed By: #### L 400.0001 ####[facility] [address] [place], [place], [address] CBC W/Diff, Automatedon 09-0 3-2024 Absolute Lymph 1.71 X10 3/uL Normal 0.83-4.51 [facility] Comment on above: Order Comment: Order Date: 03/10/24 Order Info: [id number] - CBCD Performed By: #### L 506.0250, L100.0100, L503.0105, L506.1000, L501.9985, L500.4100, L500.4050 #### [facility] [address] [place], [place], [phone] Absolute Neut 5.5 X10 3/uL Normal 2.0-7.7 [facility] Comment on above: Order Comment: Order Date: 03/10/24 Order Info: [id number] - CBCD Performed By: #### L 506.0250, L100.0100, L503.0105, L506.1000, L501.9985, L500.4100, L500.4050 #### [facility] [address] [place], [place], [phone] Basophils/100 WBC (Bld) 0.6 % Normal 0-1 [facility] Comment on above: Order Comment: Order Date: 03/10/24 Order Info: [id number] - CBCD Performed By: #### L 506.0250, L100.0100, L503.0105, L506.1000, L501.9985, L500.4100, L500.4050 #### [facility] [address] [place], [address] Eosinophils/100 WBC (Bld) 4.3 % Normal 0-5 [facility] Comment on above: Order Comment: Order Date: 03/10/24 Order Info: [id number]- - CBCD Performed By: #### L 506.0250, L100.0100, L503.0105, L506.1000, L501.9985, L500.4100, L500.4050 #### [facility] [address] [place], [address] Erythrocyte distribution width (RBC) [Ratio] 13.3 % Normal 11.6-14.6 [facility] Comment on above: Order Comment: Order Date: 03/10/24 Order Info: 0184-1 - CBCD Performed By: #### L 506.0250, L100.0100, L503.0105, L506.1000, L501.9985, L500.4100, L500.4050 #### [facility] [address] [place], [address] Hematocrit (Bld) [Volume fraction] 42.8 % Normal 40-54 [facility] Comment on above: Order Comment: Order Date: 03/10/24 Order Info: 0184-1 - CBCD Performed By: #### L 506.0250, L100.0100, L503.0105, L506.1000, L501.9985, L500.4100, L500.4050 #### [facility] [address] [place], [place], [phone] (787) Hemoglobin (Bld) [Mass/Vol] 14.1 g/dL Normal 13.0-16.5 [facility] Comment on above: Order Comment: Order Date: 03/10/24 Order Info: 0184-1 - CBCD Performed By: #### L 506.0250, L100.0100, L503.0105, L506.1000, L501.9985, L500.4100, L500.4050 #### [facility] [address] [place], [address] IG% 0.600 Normal 0.0-0.9 [facility] Comment on above: Order Comment: Order Date: 03/10/24 Order Info: 0184-1 - CBCD Result Comment: IG% - Immature Granulocytes (promyelocytes, myelocytes and metamyelocytes) > 1% indicates that a LEFT SHIFT is Present. Performed By: #### L 506.0250, L100.0100, L503.0105, L506.1000, L501.9985, L500.4100, L500.4050 #### [facility] [address] [place], [address] Lymphocytes/100 WBC (Bld) 20.0 % Normal 19-41 [facility] Comment on above: Order Comment: Order Date: 03/10/24 Order Info: 0184-1 - CBCD Performed By: #### L 506.0250, L100.0100, L503.0105, L506.1000, L501.9985, L500.4100, L500.4050 #### [facility] [address] [facility] [place], [address] MCH (RBC) [Entitic mass] 28.9 pg Normal 27.0-32.0 [facility] Comment on above: Order Comment: Order Date: 03/10/24 Order Info: 0184- - CBCD Performed By: #### L 506.0250, L100.0100, L503.0105, L506.1000, L501.9985, L500.4100, L500.4050 #### [facility] [address] [facility] [address] [place], [address] MCHC (RBC) [Mass/Vol] 32.9 g/dL Normal 32-36 [facility] Comment on above: Order Comment: Order Date: 03/10/24 Order Info: 0184-1 - CBCD Performed By: #### L 506.0250, L100.0100, L503.0105, L506.1000, L501.9985, L500.4100, L500.4050 #### [facility] [address] [facility] [place], [address] MCV (RBC) [Entitic vol] 87.7 fL Normal 80-94 [facility] Comment on above: Order Comment: Order Date: 03/10/24 Order Info: 0184-1 - CBCD Performed By: #### L 506.0250, L100.0100, L503.0105, L506.1000, L501.9985, L500.4100, L500.4050 #### [facility] [address] [place], [address] Monocytes/100 WBC (Bld) 9.5 % Normal 0-10 [facility] Comment on above: Order Comment: Order Date: 03/10/24 Order Info: 0184-1 - CBCD Performed By: #### L 506.0250, L100.0100, L503.0105, L506.1000, L501.9985, L500.4100, L500.4050 #### [facility] [address] [facility] [place], [address] Neutrophils/100 WBC (Bld) 65.0 % Normal 47-70 [facility] Comment on above: Order Comment: Order Date: 03/10/24 Order Info: 0184-1 - CBCD Performed By: #### L 506.0250, L100.0100, L503.0105, L506.1000, L501.9985, L500.4100, L500.4050 #### [facility] [address] [facility] [place], [address] Nucleated RBC (Bld) [#/Vol] 0 10*3/uL Normal 0-5 [facility] Comment on above: Order Comment: Order Date: 03/10/24 Order Info: 0184-1 - CBCD Performed By: #### L 506.0250, L100.0100, L503.0105, L506.1000, L501.9985, L500.4100, L500.4050 #### [facility] [address] [facility] [place], [address] Platelet mean volume (Bld) [Entitic vol] 10.2 fL Normal 6.2-12.0 [facility] Comment on above: Order Comment: Order Date: 03/10/24 Order Info: 0184-1 - CBCD Performed By: #### L 506.0250, L100.0100, L503.0105, L506.1000, L501.9985, L500.4100, L500.4050 #### [facility] [address] [place], [address] Platelets (Bld) [#/Vol] 227 10*3/uL Normal 150-450 [facility] Comment on above: Order Comment: Order Date: 03/10/24 Order Info: 0184-1 - CBCD Performed By: #### L 506.0250, L100.0100, L503.0105, L506.1000, L501.9985, L500.4100, L500.4050 #### [facility] [address] [place], [address] RBC (Bld) [#/Vol] 4.88 10*6/uL Normal 4.6-6.2 [facility] Comment on above: Order Comment: Order Date: 03/10/24 Order Info: 0184-1 - CBCD Performed By: #### L 506.0250, L100.0100, L503.0105, L506.1000, L501.9985, L500.4100, L500.4050 #### [facility] [address] [place], [address] RDW SD 42.9 fl Normal 35.1-43.9 [facility] Comment on above: Order Comment: Order Date: 03/10/24 Order Info: 0184-1 - CBCD Performed By: #### L 506.0250, L100.0100, L503.0105, L506.1000, L501.9985, L500.4100, L500.4050 #### [facility] [address] [place], [address] WBC (Bld) [#/Vol] 8.5 10*3/uL Normal 4.4-11.0 [facility] Comment on above: Order Comment: Order Date: 03/10/24 Order Info: 0184-1 - CBCD Performed By: #### L 506.0250, L100.0100, L503.0105, L506.1000, L501.9985, L500.4100, L500.4050 #### [facility] [address] [place], [address] Carotid Duplex Ultrasoundon 06-23-2024 Carotid Duplex Ultrasound [facility] [address] [place] [address] Carotid Duplex Ultrasound 06/23/24 0813 MR#: [id number] Acct: [id number] Name: JANETT VUONG Rep #: [id number] : 1950 74 From: Terry Taylor MD Attending Dr: KEYSHAWN Cabrera Status: REG CLI Ordering Dr: Aretha Mandujano Date: 06/23/24 Location: CVS Sex: M C Admitted: Reason For Study: Lt ICA Stenosis Rt. Velocities/BP Lt. Velocities/BP Prox CCA 93.0/19.3 cm/sec. Prox CCA 83.0/17.9 cm/sec. Mid CCA 83.1/18.2 cm/sec. Mid CCA 74.4/15.5 cm/sec. Dist CCA 68.8/19.3 cm/sec. Dist CCA 146.7/27.5 cm/sec. Prox ICA 54.5/14.9 cm/sec. Prox ICA 120.8/22.3 cm/sec. Mid ICA 66.6/23.7 cm/sec. Mid ICA 195.9/58.6 cm/sec. Dist ICA 80.9/25.3 cm/sec. Dist ICA 53.5/19.4 cm/sec. Rt. ICA/CCA = 1.0. Lt. ICA/CCA = 2.6. Prox ECA 56.1/8.2 cm/sec. Prox ECA 88.5/9.4 cm/sec. Rt. Vert. 34.6/10.4 cm/sec. Lt. Vert. 45.9/12.7 cm/sec. Right Extracranial There is heterogeneous, irregular atherosclerotic plaque noted in the right common carotid artery. There is heterogeneous, irregular atherosclerotic plaque noted in the right internal carotid artery. There is heterogeneous, irregular atherosclerotic plaque noted in the right external carotid artery. Antegrade flow is noted in the right vertebral artery. Left Extracranial There is heterogeneous, smooth atherosclerotic plaque noted in the left common carotid artery. There is heterogeneous, irregular atherosclerotic plaque noted in the left internal carotid artery. There is heterogeneous, irregular atherosclerotic plaque noted in the left external carotid artery. Antegrade flow is noted in the left vertebral artery. Procedure This is a Carotid Duplex examination using B-mode, color flow and specral Doppler. Carotid Duplex 98824. The exam was diagnostic. VL/Carotid Duplex Ultrasound Interpretation Summary Mild (<50%) stenosis right extracranial internal carotid. Moderate (50-69%) stenosis left extracranial internal carotid. Patent and antegrade vertebrals bilaterally. Ordering Physician: Aretha Mandujano Referring Physician: Naif De La Vega Performed By: Wil Otero, T 06/23/241701 Date Terry Taylor MD CC: KEYSHAWN Cabrera; Dr. Naif De La Vega MD Date Dictated: 06/23/24812 Date Transcribed: 06/23/241701 Site Director: Signed Normal [facility] Comprehensive Metabolic Prof akon 06-23-2024 Albumin [Mass/Vol] 4.0 g/dL Normal 3.2-5.0 [facility] Comment on above: Order Comment: Order Date: 03/10/24 Order Info: 0786-1 - CMP Order Info: [id number] - LIPID Order Info: [id number] - FOLS Y Performed By: #### L 506.0250, L100.0100, L503.0105, L506.1000, L501.9985, L500.4100, L500.4050 #### [facility] [address] [place], [address] Albumin/Globulin [Mass ratio] 1.2 {ratio} Normal 0.9-2.4 [facility] Comment on above: Order Comment: Order Date: 03/10/24 Order Info: 0786-1 - CMP Order Info: [id number] - LIPID Order Info: 228-8 - FOLS Y Performed By: #### L 506.0250, L100.0100, L503.0105, L506.1000, L501.9985, L500.4100, L500.4050 #### [facility] [address] [place], [address] ALK P 71 U/L Normal 45-117 [facility] Comment on above: Order Comment: Order Date: 03/10/24 Order Info: 0786-1 - CMP Order Info: [id number] - LIPID Order Info: [id number] - FOLS Y Performed By: #### L 506.0250, L100.0100, L503.0105, L506.1000, L501.9985, L500.4100, L500.4050 #### [facility] [address] [place], [place], [id number] ALT [Catalytic activity/Vol] 9 U/L Low 16-61 [facility] Comment on above: Order Comment: Order Date: 03/10/24 Order Info: 0786-1 - CMP Order Info: [id number] - LIPID Order Info: 228-8 - FOLS Y Performed By: #### L 506.0250, L100.0100, L503.0105, L506.1000, L501.9985, L500.4100, L500.4050 #### [facility] [address] [place], [address] AST [Catalytic activity/Vol] 7 U/L Low 15-37 [facility] Comment on above: Order Comment: Order Date: 03/10/24 Order Info: 0786-1 - CMP Order Info: [id number] - LIPID Order Info: 228-8 - FOLS Y Performed By: #### L 506.0250, L100.0100, L503.0105, L506.1000, L501.9985, L500.4100, L500.4050 #### [facility] [address] [place], [place], [phone] (656) Bilirubin [Mass/Vol] 0.60 mg/dL Normal 0.20-1.00 [facility] Comment on above: Order Comment: Order Date: 03/10/24 Order Info: 07- - CMP Order Info: - LIPID Order Info: [id number] - FOLS Y Result Comment: For patients on eltrombopag therapy, use of Dimension [place] TBIL is not recommended. Performed By: #### L 506.0250, L100.0100, L503.0105, L506.1000, L501.9985, L500.4100, L500.4050 #### [facility] [address] [place], [address] (971) BUN/CRE 18.2 RATIO Normal 10-20 [facility] Comment on above: Order Comment: Order Date: 03/10/24 Order Info: 0786- - CMP Order Info: [id number] - LIPID Order Info: [id number] - FOLS Y Performed By: #### L 506.0250, L100.0100, L503.0105, L506.1000, L501.9985, L500.4100, L500.4050 #### [facility] [address] [place], [address] (847) CA,Total 9.6 mg/dL Normal 8.5-10.1 [facility] Comment on above: Order Comment: Order Date: 03/10/24 Order Info: 0786-1 - CMP Order Info: [id number] - LIPID Order Info: [id number] - FOLS Y Performed By: #### L 506.0250, L100.0100, L503.0105, L506.1000, L501.9985, L500.4100, L500.4050 #### [facility] [address] [place], [address] Chloride [Moles/Vol] 102 mmol/L Normal 98-107 [facility] Comment on above: Order Comment: Order Date: 03/10/24 Order Info: 0786-1 - CMP Order Info: [id number] - LIPID Order Info: 228-8 - FOLS Y Performed By: #### L 506.0250, L100.0100, L503.0105, L506.1000, L501.9985, L500.4100, L500.4050 #### [facility] [address] [place], [address] CO2 [Moles/Vol] 28.0 mmol/L Normal 21.0-32.0 [facility] Comment on above: Order Comment: Order Date: 03/10/24 Order Info: 0786 - CMP Order Info: [id number] - LIPID Order Info: [id number] - FOLS Y Performed By: #### L 506.0250, L100.0100, L503.0105, L506.1000, L501.9985, L500.4100, L500.4050 #### [facility] [address] [place], [address] Creatinine [Mass/Vol] 0.99 mg/dL Normal 0.70-1.30 [facility] Comment on above: Order Comment: Order Date: 03/10/24 Order Info: 0786-1 - CMP Order Info: [id number] - LIPID Order Info: 228-8 - FOLS Y Result Comment: The validity of the calculated GFR GFRAA in patients over 70 years has not been determined. Clinical correlation is essential. Performed By: #### L 506.0250, L100.0100, L503.0105, L506.1000, L501.9985, L500.4100, L500.4050 #### [facility] [address] [place], [address] EST GFR - AA 96 mL/min Normal >60 [facility] Comment on above: Order Comment: Order Date: 03/10/24 Order Info: 0786- - CMP Order Info: [id number] - LIPID Order Info: [id number] - FOLS Y Result Comment: Afri can [place]an GFR Calc Performed By: #### L 506.0250, L100.0100, L503.0105, L506.1000, L501.9985, L500.4100, L500.4050 #### [facility] [address] [place], [address] GAP 8 Normal 5-15 [facility] Comment on above: Order Comment: Order Date: 03/10/24 Order Info: 785-10 - CMP Order Info: [id number] - LIPID Order Info: [id number] - FOLS Y Performed By: #### L 506.0250, L100.0100, L503.0105, L506.1000, L501.9985, L500.4100, L500.4050 #### [facility] [address] [place], [address] GFR/1.73 sq M.predicted among non-blacks MDRD (S/P/Bld) [Vol rate/Area] 79 mL/min/{1.73_m2} Normal >60 [facility] Comment on above: Order Comment: Order Date: 03/10/24 Order Info: 0786 - CMP Order Info: [id number] - LIPID Order Info: [id number] - FOLS Y Result Comment: Non- GFR Calc Performed By: #### L 506.0250, L100.0100, L503.0105, L506.1000, L501.9985, L500.4100, L500.4050 #### [facility] [address] [place], [address] Globulin (S) [Mass/Vol] 3.4 g/dL Normal 2.2-4.2 [facility] Comment on above: Order Comment: Order Date: 03/10/24 Order Info: 0786-1 - CMP Order Info: [id number] - LIPID Order Info: [id number] - FOLS Y Performed By: #### L 506.0250, L100.0100, L503.0105, L506.1000, L501.9985, L500.4100, L500.4050 #### [facility] [address] [place], [address] Glucose [Mass/Vol] 152 mg/dL High 74-106 [facility] Comment on above: Order Comment: Order Date: 03/10/24 Order Info: 0786- - CMP Order Info: [id number] - LIPID Order Info: [id number] - FOLS Y Result Comment: Fast ing Glucose result greater than or equal to 126 mg/dL suggests DIABETES MELLITUS per A.D.A. criteria. Performed By: #### L 506.0250, L100.0100, L503.0105, L506.1000, L501.9985, L500.4100, L500.4050 #### [facility] [address] [place], [address] Potassium [Moles/Vol] 4.4 mmol/L Normal 3.5-5.1 [facility] Comment on above: Order Comment: Order Date: 03/10/24 Order Info: 0786-1 - CMP Order Info: [id number] - LIPID Order Info: [id number] - FOLS Y Performed By: #### L 506.0250, L100.0100, L503.0105, L506.1000, L501.9985, L500.4100, L500.4050 #### [facility] [address] [place], [address] Sodium [Moles/Vol] 138 mmol/L Normal 136-145 [facility] Comment on above: Order Comment: Order Date: 03/10/24 Order Info: [id number] - CMP Order Info: - LIPID Order Info: [id number] - FOLS Y Performed By: #### L 506.0250, L100.0100, L503.0105, L506.1000, L501.9985, L500.4100, L500.4050 #### [facility] [address] [place], [address] T PROT 7.4 g/dL Normal 6.4-8.2 [facility] Comment on above: Order Comment: Order Date: 03/10/24 Order Info: 785-10 - CMP Order Info: - LIPID Order Info: [id number] - FOLS Y Performed By: #### L 506.0250, L100.0100, L503.0105, L506.1000, L501.9985, L500.4100, L500.4050 #### [facility] [address] [place], [place], [address] Urea nitrogen [Mass/Vol] 18 mg/dL Normal 7-18 [facility] Comment on above: Order Comment: Order Date: 03/10/24 Order Info: [id number] - CMP Order Info: - LIPID Order Info: [id number] - FOLS Y Performed By: #### L 506.0250, L100.0100, L503.0105, L506.1000, L501.9985, L500.4100, L500.4050 #### [facility] [address] [place], [place], [address] Folates, (Folic Acid)on FOLATES 6.90 ng/mL Normal 3.1-55.4 [facility] Comment on above: Order Comment: Order Date: 03/10/24 Order Info: 785-10 - CMP Order Info: [id number] - LIPID Order Info: [id number] - FOLS Y Performed By: #### L 506.0250, L100.0100, L503.0105, L506.1000, L501.9985, L500.4100, L500.4050 #### [facility] [address] [place], [place], [address] Hemoglobin A1con 06-23-2024 HbA1c (Bld) [Mass fraction] 6.6 % High 3.8-5.6 [facility] Comment on above: Order Comment: Order Date: 03/10/24 Order Info: [id number] - A1C Result Comment: Norm al < 5.7 % Prediabetic 5.7 - 6.4 % Diabetic >or= 6.5 % Please note range changes. Performed By: #### L 506.0250, L100.0100, L503.0105, L506.1000, L501.9985, L500.4100, L500.4050 #### [facility] [address] [place], [address] Lipid Profileon 06-23-2024 Cholesterol [Mass/Vol] 121 mg/dL Normal 200 [facility] Comment on above: Order Comment: Order Date: 03/10/24 Order Info: 0786-1 - CMP Order Info: [id number] - LIPID Order Info: [id number] - FOLS Y Result Comment: <200 mg/dL Desirable 200-240 mg/dL Borderline >240 mg/dL High Risk Performed By: #### L 506.0250, L100.0100, L503.0105, L506.1000, L501.9985, L500.4100, L500.4050 #### [facility] [address] [place], [address] Cholesterol in HDL [Mass/Vol] 54 mg/dL Normal [facility] Comment on above: Order Comment: Order Date: 03/10/24 Order Info: 0786-1 - CMP Order Info: [id number] - LIPID Order Info: [id number] - FOLS Y Result Comment: The drugs N-Acetylcysteine and Metamizole may falsely depress this assay. Reference Range HDL <40 mg/dL Low HDL Cholesterol HDL >or= 60 mg/dL High HDL Cholesterol Performed By: #### L 506.0250, L100.0100, L503.0105, L506.1000, L501.9985, L500.4100, L500.4050 #### [facility] [address] [place], [address] Cholesterol in LDL [Mass/Vol] 51 mg/dL Normal 0-130 [facility] Comment on above: Order Comment: Order Date: 03/10/24 Order Info: 0786- - CMP Order Info: [id number] - LIPID Order Info: [id number] - FOLS Y Performed By: #### L 506.0250, L100.0100, L503.0105, L506.1000, L501.9985, L500.4100, L500.4050 #### [facility] [address] [place], [address] Cholesterol in VLDL [Mass/Vol] 16 mg/dL Normal 5-40 [facility] Comment on above: Order Comment: Order Date: 03/10/24 Order Info: 0786 - CMP Order Info: [id number] - LIPID Order Info: [id number] - FOLS Y Performed By: #### L 506.0250, L100.0100, L503.0105, L506.1000, L501.9985, L500.4100, L500.4050 #### [facility] [address] [place], [address] Triglyceride [Mass/Vol] 78 mg/dL Normal [facility] Comment on above: Order Comment: Order Date: 03/10/24 Order Info: 0786- - CMP Order Info: [id number] - LIPID Order Info: [id number] - FOLS Y Result Comment: The drugs N-Acetylcysteine and Metamizole may falsely depress this assay. Serum Triglycerides Reference Interval Normal <150 mg/dL Borderline high 150 - 199 mg/dL High 200 - 499 mg/dL Very High > or = 500 mg/dL Performed By: #### L 506.0250, L100.0100, L503.0105, L506.1000, L501.9985, L500.4100, L500.4050 #### [facility] [address] [facility] [place], [address] Vitamin B12on 06-23-2024 Cobalamin (Vitamin B12) [Mass/Vol] 534 pg/mL Normal 211-911 [facility] Comment on above: Order Comment: Order Date: 03/10/24 Order Info: 9 - B12 Order Info: [id number] - VITD25 Performed By: #### L 506.0250, L100.0100, L503.0105, L506.1000, L501.9985, L500.4100, L500.4050 #### [facility] [address] [place], [address] Vitamin D,25 Hydroxyon 06-23 Vitamin D 25-OH 45.1 ng/mL Normal [facility] Comment on above: Order Comment: Order Date: 03/10/24 Order Info: 9 - B12 Order Info: [id number] - VITD25 Result Comment: Marcia min D 25(OH) Status Range Deficiency <20 ng/mL (50nmol/L) Insufficiency 20 - 30 ng/mL (50 - 75 nmol/L) Sufficiency 30 - 100 ng/mL (75 - 250 nmol/L) Toxicity >100 ng/mL (>250 nmol/L) Performed By: #### L 506.0250, L100.0100, L503.0105, L506.1000, L501.9985, L500.4100, L500.4050 #### [facility] [address] [facility] [place], [address] Stress Reporton 05-26-2024 Stress Report [facility] [address] [place] [address] MR#: [id number] Acct: [id number] Name: JANETT VUONG Rep #: [id number] : 1950 73 From: Xavi Brody MD Primary Care: Dr. Naif De La Vega MD Status: REG CLI Referring Dr: Juliet Enrique Sex: M C Stress Test Report Pharmacologic myocardial perfusion stress test. 73-year-old male with a history of coronary artery disease Resting EKG demonstrates sinus bradycardia with a rate of 53 bpm. Resting blood pressure is 128/72 mmHg. 0.4 mg of regadenoson was infused per usual protocol followed by rapid intravenous saline flush injection. Continuous EKG monitoring was performed. The maximum heart rate was 75 bpm which was 50% of max impacted heart rate the maximum workload was 1 metabolic equivalent. At rest there were no ST or T wave changes noted to suggest ischemia and at peak infusion nonspecific ST changes were noted which did not meet the criteria for ischemia. No clinical angina is noted. The final blood pressure was 124/68 mmHg. Myocardial perfusion protocol. 14.2 mCi of technetium 99m sestamibi was injected at rest. 0.4 mg of regadenoson was infused per usual protocol. At peak infusion 43.9 mCi of technetium 99m sestamibi was injected stress images were obtained stress and rest images were reconstructed and compared in the short axis vertical long and horizontal long axis. Gated images were also obtained. Perfusion SPECT analysis: Review of the stress images demonstrate normal uptake of tracer noted in all areas of the myocardium. The resting images similar demonstrated normal uptake of tracer noted in all areas of the myocardium. No areas of reversibility are noted to suggest ischemia and no previous infarct is noted. GI attenuation artifact is noted Gated SPECT analysis: The gated ejection fraction is 64%. Conclusion: Normal pharmacologic myocardial perfusion stress test. Preserved ejection fraction. 05/26/241427 Date Xavi Brody MD CC: Dr. Naif De La Vega MD; KEYSHAWN Orta Date Dictated: 05/26/241426 Date Transcribed: 05/26/241426 Site Director: [place] Signed Normal [facility] No Panel InformationOrdered By: Brittni Jane on 12-23-2023 Prostate Specific Antigen Screen 0.29 ng/mL 0.00-4.00 [facility] Comment on above: This test was perfor med using the TPSA assay method for [employer] chemistry system. Values obtained with differentassay methods cannot be used interchangably.When changing PSA assays in the course of monitoring apatient, additional sequential testing should be carriedout to confirm baseline values. Absolute lymphocyte countOrd ered By: Naif De La Vega on 10-09-2023 Lymphocytes Auto (Unsp spec) [#/Vol] 2.28 10*3/uL 0.83-4.51 [facility] Basophil percentageOrdered B y: Naif Kerneva on 10-09-2023 Basophils/100 WBC (Bld) 0.7 % 0-1 [facility] Bilirubin [Mass/Vol] 0.50 mg/dL 0.20-1.00 [facility] Comment on above: For patients on eltr ombopag therapy, use of Dimension [place] TBIL is not recommended. Chloride [Moles/Vol] 107 mmol/L 98-107 [facility] Cholesterol [Mass/Vol] 138 mg/dL <200 [facility] Comment on above: <200 mg/dL Desirable 200-240 mg/dL Borderline >240 mg/dL High Risk Eosinophils/100 WBC (Bld) 4.6 % 0-5 [facility] Glucose [Mass/Vol] 169 mg/dL 74-106 [facility] Comment on above: Fasting Glucose resu lt greater than or equal to 126 mg/dL suggests DIABETES MELLITUS per A.D.A. criteria. Neutrophils (Bld) [#/Vol] 4.8 10*3/uL 2.0-7.7 [facility] Neutrophils/100 WBC (Bld) 57.4 % 47-70 [facility] Potassium [Moles/Vol] 4.5 mmol/L 3.5-5.1 [facility] Protein [Mass/Vol] 7.6 g/dL 6.4-8.2 [facility] Sodium [Moles/Vol] 137 mmol/L 136-145 [facility] Triglyceride [Mass/Vol] 89 mg/dL <199 [facility] Comment on above: The drugs N-Acetylcy steine and Metamizole may falsely depress this assay.Serum Triglycerides Reference Interval Normal <150 mg/dL Borderline high 150 - 199 mg/dL High 200 - 499 mg/dL Very High > or = 500 mg/dL WBC (Bld) [#/Vol] 8.3 10*3/uL 4.4-11.0 [facility] Blood erythrocytes count (nu mber/volume)Ordered By: Naif De La Vega on 10-09-2023 RBC (Bld) [#/Vol] 5.11 10*6/uL 4.6-6.2 [facility] Blood hemoglobin measurement (mass/volume)Ordered By: Naif De La Vega on 10-09-2023 Hemoglobin (Bld) [Mass/Vol] 14.6 g/dL 13.0-16.5 [facility] Blood lymphocytes/100 leukoc ytesOrdered By: Naif De La Vega on 10-09-2023 Lymphocytes/100 WBC (Bld) 27.5 % 19-41 [facility] Blood monocytes/100 leukocyt esOrdered By: Naif De La Vega on 10-09-2023 Monocytes/100 WBC (Bld) 9.3 % 0-10 [facility] Blood platelet mean volumeOr dered By: Naif De La Vega on 10-09-2023 Platelet mean volume (Bld) [Entitic vol] 9.9 fL 6.2-12.0 [facility] Determination of erythrocyte mean corpuscular volume (MCV)Ordered By: Naif De La Vega on 10-09-2023 MCV (RBC) [Entitic vol] 87.9 fL 80-94 [facility] Hematocrit Auto (Bld) [Volum e fraction]Ordered By: Naif De La Vega on 10-09-2023 Hematocrit (Bld) [Volume fraction] 44.9 % 40-54 [facility] Laboratory - Chemistry and C hemistry - challengeOrdered By: Naif De La Vega on 10-09-2023 ALP [Catalytic activity/Vol] 77 U/L 45-117 [facility] ALT [Catalytic activity/Vol] 19 U/L 16-61 [facility] CO2 [Moles/Vol] 27.0 mmol/L 21.0-32.0 [facility] Cobalamin (Vitamin B12) [Mass/Vol] 1238 pg/mL 211-911 [facility] Globulin (S) [Mass/Vol] 3.6 g/dL 2.2-4.2 [facility] Urea nitrogen/Creatinine [Mass ratio] 14.9 mg/mg 10-20 [facility] Laboratory - Hematology and Cell countsOrdered By: Naif De La Vega on 10-09-2023 Erythrocyte distribution width (RBC) [Entitic vol] 42.9 fL 35.1-43.9 [facility] Erythrocyte distribution width (RBC) [Ratio] 13.3 % 11.6-14.6 [facility] Immature granulocytes/100 WBC (Bld) 0.500 % 0.0-0.9 [facility] Comment on above: IG% - Immature Granu locytes (promyelocytes, myelocytes and metamyelocytes) > 1% indicates that a LEFT SHIFT is Present. MCH (RBC) [Entitic mass] 28.6 pg 27.0-32.0 [facility] Nucleated RBC/100 WBC (Bld) [Ratio] 0 % 0-5 [facility] MCHC Auto (RBC) [Mass/Vol]Or dered By: Naif De La Vega on 10-09-2023 MCHC (RBC) [Mass/Vol] 32.5 g/dL 32-36 [facility] No Panel InformationOrdered By: Naif De La Vega on 10-09-2023 Estimated GFR (MDRD) Amer 94 mL/min >60 [facility] Comment on above: GFR Calc Estimated GFR (MDRD) Non-Af Amer 77 mL/min >60 [facility] Comment on above: Non- GFR Calc Urine Microalbumin/Creatini ne Ratio 27.3 mg/g CRE <30 [facility] Vitamin D 25-Hydroxy 48.9 ng/mL [facility] Comment on above: Vitamin D 25(OH) Sta tus Range Deficiency <20 ng/mL (50nmol/L) Insufficiency 20 - 30 ng/mL (50 - 75 nmol/L) Sufficiency 30 - 100 ng/mL (75 - 250 nmol/L) Toxicity >100 ng/mL (>250 nmol/L) Platelets bldOrdered By: Marcus De La Vega on 10-09-2023 Platelets (Bld) [#/Vol] 233 10*3/uL 150-450 [facility] Serum or plasma albumin micaela urement (mass/volume)Ordered By: Naif De La Vega on 10-09-2023 Albumin [Mass/Vol] 4.0 g/dL 3.2-5.0 [facility] Serum or plasma albumin/glob ulin mass ratioOrdered By: Naif De La Vega on 10-09-2023 Albumin/Globulin [Mass ratio] 1.1 {ratio} 0.9-2.4 [facility] Serum or plasma calcium micaela urement (mass/volume)Ordered By: Naif De La Vega on 10-09-2023 Calcium [Mass/Vol] 10.0 mg/dL 8.5-10.1 [facility] Serum or plasma cholesterol in HDL measurement (mass/volume)Ordered By: Naif De La Vega on 10-09-2023 Cholesterol in HDL [Mass/Vol] 53 mg/dL >40 [facility] Comment on above: The drugs N-Acetylcy steine and Metamizole may falsely depress this assay. Reference Range HDL <40 mg/dL Low HDL Cholesterol HDL >or= 60 mg/dL High HDL Cholesterol Serum or plasma cholesterol in VLDL measurement (mass/volume)Ordered By: Naif De La Vega on 10-09-2023 Cholesterol in VLDL [Mass/Vol] 18 mg/dL 5-40 [facility] Serum or plasma creatinine m easurement (mass/volume)Ordered By: Naif De La Vega on 10-09-2023 Creatinine [Mass/Vol] 1.01 mg/dL 0.70-1.30 [facility] Comment on above: The validity of the calculated GFR & GFRAA in patients over 70 years has not been determined. Clinical correlation is essential. Serum or plasma low density lipoprotein (LDL) cholesterol measurement (mass/volume)Ordered By: Naif De La Vega on 10-09-2023 Cholesterol in LDL [Mass/Vol] 67 mg/dL 0-130 [facility] Serum or plasma urea nitroge n measurement (mass/volume)Ordered By: Naif De La Vega on 10-09-2023 Urea nitrogen [Mass/Vol] 15 mg/dL 7-18 [facility] Thin prep Papanicolaou smear with manual screeningOrdered By: Naif De La Vega on 10-09-2023 Thin prep Papanicolaou smear with manual screening 13 U/L 15-37 [facility] Thin prep Papanicolaou smear with manual screening 3 5-15 [facility] Thin prep Papanicolaou smear with manual screening 12.9 mg/L NO RANGE EST. [facility] Urine creatinine measurement (mass/volume)Ordered By: Naif De La Vega on 10-09-2023 Creatinine (U) [Mass/Vol] 47.20 mg/dL NO RANGE EST. [facility] Whole blood hemoglobin A1c/t otal hemoglobin ratio (mass fraction)Ordered By: Naif De La Vega on 10-09-2023 HbA1c (Bld) [Mass fraction] 6.6 % 3.8-5.6 [facility] Comment on above: Normal < 5.7 % Predi abetic 5.7 - 6.4 % Diabetic >or= 6.5 % Please note range changes. Glucose Glucometer (BldC) [M ass/Vol]Ordered By: Ross Ochoa on 08-07-2023 Glucose [Mass/Vol] 127 mg/dL 74-106 [facility] Comment on above: MANAGEMENT OF PATIEN T CARE PER NURSING PROTOCOL Whole blood hemoglobin A1c/t otal hemoglobin ratio (mass fraction)Ordered By: David Alexandre on 08-01-2023 HbA1c (Bld) [Mass fraction] 6.6 % 3.8-5.6 [facility] Comment on above: Normal < 5.7 % Predi abetic 5.7 - 6.4 % Diabetic >or= 6.5 % Please note range changes. Absolute lymphocyte countOrd ered By: Naif De La Vega on 06-11-2023 Lymphocytes Auto (Unsp spec) [#/Vol] 1.70 10*3/uL 0.83-4.51 [facility] Basophil percentageOrdered B y: Naif De La Vega on 06-11-2023 Basophil percentage 0 SEEN /hpf 0-5 [facility] Basophils/100 WBC (Bld) 0.7 % 0-1 [facility] Bilirubin [Mass/Vol] 0.60 mg/dL 0.20-1.00 [facility] Comment on above: For patients on eltr ombopag therapy, use of Dimension Garwin TBIL is not recommended. Chloride [Moles/Vol] 105 mmol/L 98-107 [facility] Cholesterol [Mass/Vol] 113 mg/dL <200 [facility] Comment on above: <200 mg/dL Desirable 200-240 mg/dL Borderline >240 mg/dL High Risk Eosinophils/100 WBC (Bld) 4.9 % 0-5 [facility] Glucose [Mass/Vol] 144 mg/dL 74-106 [facility] Comment on above: Fasting Glucose resu lt greater than or equal to 126 mg/dL suggests DIABETES MELLITUS per A.D.A. criteria. Neutrophils (Bld) [#/Vol] 4.8 10*3/uL 2.0-7.7 [facility] Neutrophils/100 WBC (Bld) 63.6 % 47-70 [facility] Potassium [Moles/Vol] 4.3 mmol/L 3.5-5.1 [facility] Protein [Mass/Vol] 7.3 g/dL 6.4-8.2 [facility] Sodium [Moles/Vol] 137 mmol/L 136-145 [facility] Triglyceride [Mass/Vol] 92 mg/dL <199 [facility] Comment on above: The drugs N-Acetylcy steine and Metamizole may falsely depress this assay.Serum Triglycerides Reference Interval Normal <150 mg/dL Borderline high 150 - 199 mg/dL High 200 - 499 mg/dL Very High > or = 500 mg/dL WBC (Bld) [#/Vol] 7.5 10*3/uL 4.4-11.0 [facility] Bilirubin Test strip Ql (U)O rdered By: Naif De La Vega on 06-11-2023 Bilirubin Ql (U) Negative Negative [facility] Blood erythrocytes count (nu mber/volume)Ordered By: Naif De La Vega on 06-11-2023 RBC (Bld) [#/Vol] 4.72 10*6/uL 4.6-6.2 [facility] Blood hemoglobin measurement (mass/volume)Ordered By: Naif De La Vega on 06-11-2023 Hemoglobin (Bld) [Mass/Vol] 14.0 g/dL 13.0-16.5 [facility] Blood lymphocytes/100 leukoc ytesOrdered By: Naif De La Vega on 06-11-2023 Lymphocytes/100 WBC (Bld) 22.6 % 19-41 [facility] Blood monocytes/100 leukocyt esOrdered By: Naif De La Vega on 06-11-2023 Monocytes/100 WBC (Bld) 7.9 % 0-10 [facility] Blood platelet mean volumeOr dered By: Naif De La Vega on 06-11-2023 Platelet mean volume (Bld) [Entitic vol] 9.9 fL 6.2-12.0 [facility] Determination of erythrocyte mean corpuscular volume (MCV)Ordered By: Naif De La Vega on 06-11-2023 MCV (RBC) [Entitic vol] 88.3 fL 80-94 [facility] Hematocrit Auto (Bld) [Volum e fraction]Ordered By: Naif De La Vega on 06-11-2023 Hematocrit (Bld) [Volume fraction] 41.7 % 40-54 [facility] Ketones Test strip Ql (U)Ord ered By: Naif De La Vega on 06-11-2023 Ketones Ql (U) Negative Negative [facility] Laboratory - Chemistry and C hemistry - challengeOrdered By: Naif De La Vega on 06-11-2023 ALP [Catalytic activity/Vol] 70 U/L 45-117 [facility] ALT [Catalytic activity/Vol] 19 U/L 16-61 [facility] CO2 [Moles/Vol] 25.0 mmol/L 21.0-32.0 [facility] Cobalamin (Vitamin B12) [Mass/Vol] 704 pg/mL 211-911 [facility] Globulin (S) [Mass/Vol] 3.5 g/dL 2.2-4.2 [facility] Urea nitrogen/Creatinine [Mass ratio] 14.7 mg/mg 10-20 [facility] Laboratory - Hematology and Cell countsOrdered By: Naif De La Vega on 06-11-2023 Erythrocyte distribution width (RBC) [Entitic vol] 43.5 fL 35.1-43.9 [facility] Erythrocyte distribution width (RBC) [Ratio] 13.3 % 11.6-14.6 [facility] Immature granulocytes/100 WBC (Bld) 0.300 % 0.0-0.9 [facility] Comment on above: IG% - Immature Granu locytes (promyelocytes, myelocytes and metamyelocytes) > 1% indicates that a LEFT SHIFT is Present. MCH (RBC) [Entitic mass] 29.7 pg 27.0-32.0 [facility] Nucleated RBC/100 WBC (Bld) [Ratio] 0 % 0[facility] [Mass/Vol]Or dered By: Naif De La Vega on 06-11-2023 MCHC (RBC) [Mass/Vol] 33.6 g/dL 32-36 [facility] Mucus LM Ql (Urine sed)Order ed By: Naif De La Vega on 06-11-2023 Mucus Ql (Urine sed) 0 SEEN /hpf [facility] Nitrite Test strip Ql (U)Ord ered By: Naif De La Vega on 06-11-2023 Nitrite Ql (U) Negative Negative [facility] No Panel InformationOrdered By: Naif De La Vega on 06-11-2023 Estimated GFR (MDRD) Amer 100 mL/min >60 [facility] Comment on above: GFR Calc Estimated GFR (MDRD) Non-Af Amer 83 mL/min >60 [facility] Comment on above: Non- GFR Calc Thyroid Stimulating Hormone (TSH) 1.65 uIU/mL 0.358-3.74 [facility] Urine Microalbumin/Creatini ne Ratio 17.4 mg/g CRE <30 [facility] Vitamin D 25-Hydroxy 42.1 ng/mL [facility] Comment on above: Vitamin D 25(OH) Sta tus Range Deficiency <20 ng/mL (50nmol/L) Insufficiency 20 - 30 ng/mL (50 - 75 nmol/L) Sufficiency 30 - 100 ng/mL (75 - 250 nmol/L) Toxicity >100 ng/mL (>250 nmol/L) Platelets bldOrdered By: Marcus De La Vega on 06-11-2023 Platelets (Bld) [#/Vol] 207 10*3/uL 150-450 [facility] Protein Test strip Ql (U)Ord ered By: Naif De La Vega on 06-11-2023 Protein Ql (U) Negative Negative [facility] Serum or plasma albumin micaela urement (mass/volume)Ordered By: Naif De La Vega on 06-11-2023 Albumin [Mass/Vol] 3.8 g/dL 3.2-5.0 [facility] Serum or plasma albumin/glob ulin mass ratioOrdered By: Naif De La Vega on 06-11-2023 Albumin/Globulin [Mass ratio] 1.1 {ratio} 0.9-2.4 [facility] Serum or plasma calcium micaela urement (mass/volume)Ordered By: Naif De La Vega on 06-11-2023 Calcium [Mass/Vol] 9.0 mg/dL 8.5-10.1 [facility] Serum or plasma cholesterol in HDL measurement (mass/volume)Ordered By: Naif De La Vega on 06-11-2023 Cholesterol in HDL [Mass/Vol] 47 mg/dL >40 [facility] Comment on above: The drugs N-Acetylcy steine and Metamizole may falsely depress this assay. Reference Range HDL <40 mg/dL Low HDL Cholesterol HDL >or= 60 mg/dL High HDL Cholesterol Serum or plasma cholesterol in VLDL measurement (mass/volume)Ordered By: Naif De La Vega on 06-11-2023 Cholesterol in VLDL [Mass/Vol] 18 mg/dL 5-40 [facility] Serum or plasma creatinine m easurement (mass/volume)Ordered By: Naif De La Vega on 06-11-2023 Creatinine [Mass/Vol] 0.95 mg/dL 0.70-1.30 [facility] Comment on above: The validity of the calculated GFR & GFRAA in patients over 70 years has not been determined. Clinical correlation is essential. Serum or plasma low density lipoprotein (LDL) cholesterol measurement (mass/volume)Ordered By: Naif De La Vega on 06-11-2023 Cholesterol in LDL [Mass/Vol] 48 mg/dL 0-130 [facility] Serum or plasma urea nitroge n measurement (mass/volume)Ordered By: Naif De La Vega on 06-11-2023 Urea nitrogen [Mass/Vol] 14 mg/dL 7-18 [facility] Squamous epithelial cells de tection in urine sediment by light microscopyOrdered By: Naif De La Vega on 06-11-2023 Epithelial cells.squamous LM Ql (Urine sed) 0 SEEN /hpf 0-5 [facility] Thin prep Papanicolaou smear with manual screeningOrdered By: Naif De La Vega on 06-11-2023 Thin prep Papanicolaou smear with manual screening 9 U/L 15-37 [facility] Thin prep Papanicolaou smear with manual screening 7 5-15 [facility] Thin prep Papanicolaou smear with manual screening 9.6 mg/L NO RANGE EST. [facility] Urine blood detectionOrdered By: Naif De La Vega on 06-11-2023 RBC Ql (U) Negative Negative [facility] RBC Ql (U) 0 SEEN /hpf 0-5 [facility] Urine clarityOrdered By: Marcus De La Vega on 06-11-2023 Clarity (U) Clear Clear [facility] Urine color determinationOrd ered By: Naif De La Vega on 06-11-2023 Color (U) Yellow Yellow [facility] Urine creatinine measurement (mass/volume)Ordered By: Naif De La Vega on 06-11-2023 Creatinine (U) [Mass/Vol] 55.20 mg/dL NO RANGE EST. [facility] Urine glucose detectionOrder ed By: Naif De La Vega on 06-11-2023 Glucose Ql (U) Normal mg/dl Normal [facility] Urine leukocyte esterase det ection by dipstickOrdered By: Naif De La Vega on 06-11-2023 Leukocyte esterase Test strip Ql (U) Negative Negative [facility] Urine pHOrdered By: Naif velasquez on 06-11-2023 pH (U) 6.0 [pH] 5.0 - 8.0 [facility] Urine sediment bacteria coun t by microscopy (number/high power field)Ordered By: Naif De La Vega on 06-11-2023 Bacteria LM.HPF (Urine sed) [#/Area] 0 /[HPF] None Seen [facility] Urine specific gravity measu rementOrdered By: Naif De La Vega on 06-11-2023 Specific gravity (U) [Rel density] 1.015 1.002-1.03 0 [facility] Urobilinogen Auto test strip Ql (U)Ordered By: Naif De La Vega on 06-11-2023 Urobilinogen Ql (U) Normal mg/dl Normal [facility] Whole blood hemoglobin A1c/t otal hemoglobin ratio (mass fraction)Ordered By: Naif De La Vega on 06-11-2023 HbA1c (Bld) [Mass fraction] 6.7 % 3.8-5.6 [facility] Comment on above: Normal < 5.7 % Predi abetic 5.7 - 6.4 % Diabetic >or= 6.5 % Please note range changes. Absolute lymphocyte countOrd ered By: Naif De La Vgea on 03-05-2023 Lymphocytes Auto (Unsp spec) [#/Vol] 1.56 10*3/uL 0.83-4.51 [facility] Basophil percentageOrdered B y: Naif De La Vega on 03-05-2023 Basophils/100 WBC (Bld) 0.4 % 0-1 [facility] Bilirubin [Mass/Vol] 0.60 mg/dL 0.20-1.00 [facility] Comment on above: For patients on eltr ombopag therapy, use of Dimension [place]win TBIL is not recommended. Chloride [Moles/Vol] 106 mmol/L 98-107 [facility] Cholesterol [Mass/Vol] 122 mg/dL <200 [facility] Comment on above: <200 mg/dL Desirable 200-240 mg/dL Borderline >240 mg/dL High Risk Eosinophils/100 WBC (Bld) 5.0 % 0-5 [facility] Glucose [Mass/Vol] 188 mg/dL 74-106 [facility] Comment on above: Fasting Glucose resu lt greater than or equal to 126 mg/dL suggests DIABETES MELLITUS per A.D.A. criteria. Neutrophils (Bld) [#/Vol] 5.2 10*3/uL 2.0-7.7 [facility] Neutrophils/100 WBC (Bld) 66.1 % 47-70 [facility] Potassium [Moles/Vol] 4.2 mmol/L 3.5-5.1 [facility] Protein [Mass/Vol] 7.6 g/dL 6.4-8.2 [facility] Sodium [Moles/Vol] 139 mmol/L 136-145 [facility] Triglyceride [Mass/Vol] 82 mg/dL <199 [facility] Comment on above: The drugs N-Acetylcy steine and Metamizole may falsely depress this assay.Serum Triglycerides Reference Interval Normal <150 mg/dL Borderline high 150 - 199 mg/dL High 200 - 499 mg/dL Very High > or = 500 mg/dL WBC (Bld) [#/Vol] 7.8 10*3/uL 4.4-11.0 [facility] Blood erythrocytes count (nu mber/volume)Ordered By: Naif De La Vega on 03-05-2023 RBC (Bld) [#/Vol] 4.93 10*6/uL 4.6-6.2 [facility] Blood hemoglobin measurement (mass/volume)Ordered By: Naif De La Vega on 03-05-2023 Hemoglobin (Bld) [Mass/Vol] 14.7 g/dL 13.0-16.5 [facility] Blood lymphocytes/100 leukoc ytesOrdered By: Naif De La Vega on 03-05-2023 Lymphocytes/100 WBC (Bld) 20.0 % 19-41 [facility] Blood monocytes/100 leukocyt esOrdered By: Naif De La Vega on 03-05-2023 Monocytes/100 WBC (Bld) 8.1 % 0-10 [facility] Blood platelet mean volumeOr dered By: Naif De La Vega on 03-05-2023 Platelet mean volume (Bld) [Entitic vol] 10.2 fL 6.2-12.0 [facility] Determination of erythrocyte mean corpuscular volume (MCV)Ordered By: Naif De La Vega on 03-05-2023 MCV (RBC) [Entitic vol] 88.6 fL 80-94 [facility] Hematocrit Auto (Bld) [Volum e fraction]Ordered By: Naif De La Vega on 03-05-2023 Hematocrit (Bld) [Volume fraction] 43.7 % 40-54 [facility] Laboratory - Chemistry and C hemistry - challengeOrdered By: Naif De La Vega on 03-05-2023 ALP [Catalytic activity/Vol] 80 U/L 45-117 [facility] ALT [Catalytic activity/Vol] 28 U/L 16-61 [facility] CO2 [Moles/Vol] 27.0 mmol/L 21.0-32.0 [facility] Cobalamin (Vitamin B12) [Mass/Vol] 603 pg/mL 211-911 [facility] Globulin (S) [Mass/Vol] 3.4 g/dL 2.2-4.2 [facility] Urea nitrogen/Creatinine [Mass ratio] 13.6 mg/mg 10-20 [facility] Laboratory - Hematology and Cell countsOrdered By: Naif De La Vega on 03-05-2023 Erythrocyte distribution width (RBC) [Entitic vol] 43.3 fL 35.1-43.9 [facility] Erythrocyte distribution width (RBC) [Ratio] 13.2 % 11.6-14.6 [facility] Immature granulocytes/100 WBC (Bld) 0.400 % 0.0-0.9 [facility] Comment on above: IG% - Immature Granu locytes (promyelocytes, myelocytes and metamyelocytes) > 1% indicates that a LEFT SHIFT is Present. MCH (RBC) [Entitic mass] 29.8 pg 27.0-32.0 [facility] Nucleated RBC/100 WBC (Bld) [Ratio] 0 % 0-5 [facility] MCHC Auto (RBC) [Mass/Vol]Or dered By: Naif De La Vega on 03-05-2023 MCHC (RBC) [Mass/Vol] 33.6 g/dL 32-36 [facility] No Panel InformationOrdered By: Naif De La Vega on 03-05-2023 Estimated GFR (MDRD) Amer 100 mL/min >60 [facility] Comment on above: GFR Calc Estimated GFR (MDRD) Non-Af Amer 83 mL/min >60 [facility] Comment on above: Non- GFR Calc Urine Microalbumin/Creatini ne Ratio 15.5 mg/g CRE <30 [facility] Vitamin D 25-Hydroxy 54.5 ng/mL [facility] Comment on above: Vitamin D 25(OH) Sta tus Range Deficiency <20 ng/mL (50nmol/L) Insufficiency 20 - 30 ng/mL (50 - 75 nmol/L) Sufficiency 30 - 100 ng/mL (75 - 250 nmol/L) Toxicity >100 ng/mL (>250 nmol/L) Platelets bldOrdered By: Marcus De La Vega on 03-05-2023 Platelets (Bld) [#/Vol] 226 10*3/uL 150-450 [facility] Serum or plasma albumin micaela urement (mass/volume)Ordered By: Naif De La Vega on 03-05-2023 Albumin [Mass/Vol] 4.2 g/dL 3.2-5.0 [facility] Serum or plasma albumin/glob ulin mass ratioOrdered By: Naif De La Vega on 03-05-2023 Albumin/Globulin [Mass ratio] 1.2 {ratio} 0.9-2.4 [facility] Serum or plasma calcium micaela urement (mass/volume)Ordered By: Naif De La Vega on 03-05-2023 Calcium [Mass/Vol] 9.6 mg/dL 8.5-10.1 [facility] Serum or plasma cholesterol in HDL measurement (mass/volume)Ordered By: Naif De La Vega on 03-05-2023 Cholesterol in HDL [Mass/Vol] 59 mg/dL >40 [facility] Comment on above: The drugs N-Acetylcy steine and Metamizole may falsely depress this assay. Reference Range HDL <40 mg/dL Low HDL Cholesterol HDL >or= 60 mg/dL High HDL Cholesterol Serum or plasma cholesterol in VLDL measurement (mass/volume)Ordered By: Naif De La Vega on 03-05-2023 Cholesterol in VLDL [Mass/Vol] 16 mg/dL 5-40 [facility] Serum or plasma creatinine m easurement (mass/volume)Ordered By: Naif De La Vega on 03-05-2023 Creatinine [Mass/Vol] 0.96 mg/dL 0.70-1.30 [facility] Comment on above: The validity of the calculated GFR & GFRAA in patients over 70 years has not been determined. Clinical correlation is essential. Serum or plasma low density lipoprotein (LDL) cholesterol measurement (mass/volume)Ordered By: Naif De La Vega on 03-05-2023 Cholesterol in LDL [Mass/Vol] 47 mg/dL 0-130 [facility] Serum or plasma urea nitroge n measurement (mass/volume)Ordered By: Naif De La Vega on 03-05-2023 Urea nitrogen [Mass/Vol] 13 mg/dL 7-18 [facility] Thin prep Papanicolaou smear with manual screeningOrdered By: Naif De La Vega on 03-05-2023 Thin prep Papanicolaou smear with manual screening 14 U/L 15-37 [facility] Thin prep Papanicolaou smear with manual screening 6 5-15 [facility] Thin prep Papanicolaou smear with manual screening 7.6 mg/L NO RANGE EST. [facility] Urine creatinine measurement (mass/volume)Ordered By: Naif De La Vega on 03-05-2023 Creatinine (U) [Mass/Vol] 48.90 mg/dL NO RANGE EST. [facility] Whole blood hemoglobin A1c/t otal hemoglobin ratio (mass fraction)Ordered By: Naif De La Vega on 03-05-2023 HbA1c (Bld) [Mass fraction] 6.9 % 3.8-5.6 [facility] Comment on above: Normal < 5.7 % Predi abetic 5.7 - 6.4 % Diabetic >or= 6.5 % Please note range changes. CNOVon 10-11-2022 CNOV Office Visit (GENSWS ) JANETT VUONG ([id number]) 1950 M Date Time Provider Department 10/11/22 7:45 AM [facility]ELVIN DUPONT During your visit today, we recorded the following information about you: Temperature Pulse Blood pressure Weight 98.6 degrees 84/minute 136/70 82.8 kg Height 1.778 m Joaquina Grant RN 10/11/2022 8:19 AM Signed UNIVERSAL PROTOCOL / SAFETY CHECKLIST Procedure to be Performed: Incision and evacuation of thrombosed hemorrhoid Sign In: A Moment of CARE was completed. Personnel directly involved with the procedure wore the appropriate PPE (Personal Protective Equipment). No special equipment needed. Patient/Surrogate Stated/Verified: PATIENT VERIFIED(optional for EMERGENT procedures): Patient name, Date of , Relevant allergies, and The intended procedure Time Out Communication: Intended patient and procedure match the source documents. Consent documented and matches the intended procedure. No relevant labs, photos, and/or imaging studies were applicable for review. Correct side/site marked and visible. Medications required for procedure verified. No fire risk assessment and interventions applicable. No implant(s) inserted. Sign Out: SIGN OUT (optional for EMERGENT procedures): No specimen collected. No instruments, equipment or retained foreign bodies applicable. Post-procedure follow-up management communicated and Plan of Care Visit completed when applicable. MARCE Modi MD 10/11/2022 8:19 AM Signed HISTORY AND PHYSICAL Janett Vuong 1950 REFERRING PHYSICIAN: Naif De La Vega, * CHIEF COMPLAINT: Thrombosed hemorrhoid HPI: Janett is a 72 year old male with a complaint of a thrombosed hemorrhoid. he has noticed anal pain and swelling for the past 8 days. he notes drainage from the thrombosed hemorrhoid. Janett denies a prior history of thrombosed hemorrhoids. he notes a history of constipation and straining. The patient is on Plavix for coronary artery disease with stent placement The patient was seen by his primary care physician and was referred for treatment. The patient is being seen by me today at the request of Dr. Naif De La Vega MD for my opinion and advice regarding thrombosed hemorrhoid. SIGNIFICANT MEDICAL PROBLEMS: PAST MEDICAL HISTORY Diagnosis Date Benign prostatic hyperplasia with urinary frequency Bladder cancer (HCC) BPH (benign prostatic hyperplasia) CAD (coronary artery disease) Heart attack (HCC) Hemorrhoids High cholesterol Hypertension OPERATIONS: PAST SURGICAL HISTORY Procedure Laterality Date ANGIOPLASTY HX with cardiac stent x1 APPENDECTOMY HX CAUTER TURBINATE MUCOSA,INTRAMURAL 2019 CYSTOSCOPY 2018, 2019, 2019, 2020 TONSILLECTOMY HX TRANSURETHRAL ELEC-SURG PROSTATECTOM 2019 CURRENT MEDICATIONS: Current Outpatient Medications Medication Sig Dispense Refill metoprolol succinate ER (TOPROL XL) 25 mg 24 hr tablet Take 25 mg by mouth once daily. metFORMIN (GLUCOPHAGE) 500 mg tablet Take 1,000 mg by mouth twice daily with meals. acetaminophen (TYLENOL) 325 mg tablet Take 2 tablets by mouth four times daily. guaiFENesin (MUCINEX) 600 mg 12 hr tablet Take 1 tablet by mouth every 12 hours. (Patient not taking: Reported on 05/11/2019 ) 14 tablet 0 polyethylene glycol 3350 (MIRALAX, GLYCOLAX) 17 gram packet Take 1 Packet by mouth once daily. (Patient not taking: Reported on 05/11/2019 ) senna-docusate (SENNA-S) 8.6-50 mg per tablet Take 1 tablet by mouth twice daily. (Patient not taking: Reported on 05/11/2019 ) cyclobenzaprine (FLEXERIL) 10 mg tablet Take 1 tablet by mouth three times daily as needed for Muscle Spasm. (Patient not taking: Reported on 05/11/2019 ) 21 tablet 0 Cholecalciferol, Vitamin D3, 5,000 unit cap Take 1 capsule by mouth once daily. 30 capsule 0 clopidogrel bisulfate(PLAVIX 75 MG TAB) Take one(1) tablet daily. 0 ATENOLOL 50 MG TAB Take one(1) tablet daily. 0 rosuvastatin calcium(CRESTOR 5 MG TAB) Take one(1) tablet daily. 0 nitroglycerin(NITROSTAT 0.4 MG SUBLINGUAL TAB) Place one(1) tablet on tongue as needed for chest pain. If no pain relief call 911. 0 aspirin(ADULT LOW DOSE ASPIRIN 81 MG TAB, DELAYED RELEASE) Take one(1) tablet daily. 0 No current facility-administered medications for this visit. ALLERGIES: Patient has no known allergies. PERSONAL HISTORY: Social History Tobacco Use Smoking status: Every Day Packs/day: 1.00 Types: Cigarettes Smokeless tobacco: Former Vaping Use Vaping Use: Never used Substance Use Topics Alcohol use: Yes Comment: 1-2x/weeks Drug use: No FAMILY HISTORY: FAMILY HISTORY Problem Relation Age of Onset other (dm2) Mother other (dm2) Father REVIEW OF SYMPTOMS: The review of systems data was entered by the nurse and reviewed by me There are no exam n (more content not included)... Normal [facility] No Panel Informationon 10-02 Prostate Specific Antigen Screen 0.35 ng/mL 0.00-4.00 [facility] Work Phone: Comment on above: This test was perfor med using the TPSA assay method for theSymphony Dynamo chemistry system. Values obtained with differentassay methods cannot be used interchangably.When changing PSA assays in the course of monitoring apatient, additional sequential testing should be carriedout to confirm baseline values. Absolute lymphocyte counton 04-03-2022 Lymphocytes Auto (Unsp spec) [#/Vol] 1.79 10*3/uL 0.83-4.51 [facility] Work Phone: Basophil percentageon 2021 Basophil percentage 0 SEEN /hpf 0-5 [facility] Work Phone: Basophils/100 WBC (Bld) 0.2 % 0-1 [facility] Work Phone: Bilirubin [Mass/Vol] 0.70 mg/dL 0.20-1.00 [facility] Work Phone: Comment on above: For patients on eltr ombopag therapy, use of Dimension [place]win TBIL is not recommended. Chloride [Moles/Vol] 104 mmol/L 98-107 [facility] Work Phone: [phone] Cholesterol [Mass/Vol] 123 mg/dL <200 [facility] Work Phone: [phone] Comment on above: <200 mg/dL Desirable 200-240 mg/dL Borderline >240 mg/dL High Risk Eosinophils/100 WBC (Bld) 5.4 % 0-5 [facility] Work Phone: [phone] Glucose [Mass/Vol] 137 mg/dL 74-106 [facility] Work Phone: [phone] Comment on above: Fasting Glucose resu lt greater than or equal to 126 mg/dL suggests DIABETES MELLITUS per A.D.A. criteria. Neutrophils (Bld) [#/Vol] 5.4 10*3/uL 2.0-7.7 [facility] Work Phone: [phone] Neutrophils/100 WBC (Bld) 63.9 % 47-70 [facility] Work Phone: [phone] Potassium [Moles/Vol] 4.0 mmol/L 3.5-5.1 [facility] Work Phone: [phone] Protein [Mass/Vol] 7.3 g/dL 6.4-8.2 [facility] Work Phone: [phone] Sodium [Moles/Vol] 136 mmol/L 136-145 [facility] Work Phone: [phone] Triglyceride [Mass/Vol] 111 mg/dL <199 [facility] Work Phone: [phone] Comment on above: The drugs N-Acetylcy steine and Metamizole may falsely depress this assay.Serum Triglycerides Reference Interval Normal <150 mg/dL Borderline high 150 - 199 mg/dL High 200 - 499 mg/dL Very High > or = 500 mg/dL WBC (Bld) [#/Vol] 8.5 10*3/uL 4.4-11.0 [facility] Work Phone: [phone] Bilirubin Test strip Ql (U)o n 04-03-2022 Bilirubin Ql (U) Negative Negative [facility] Work Phone: [phone] Blood erythrocytes count (nu mber/volume)on 04-03-2022 RBC (Bld) [#/Vol] 4.73 10*6/uL 4.6-6.2 [facility] Work Phone: [phone] Blood hemoglobin measurement (mass/volume)on 04-03-2022 Hemoglobin (Bld) [Mass/Vol] 14.0 g/dL 13.0-16.5 [facility] Work Phone: Blood lymphocytes/100 leukoc yteson 04-03-2022 Lymphocytes/100 WBC (Bld) 21.1 % 19-41 [facility] Work Phone: Blood monocytes/100 leukocyt eson 04-03-2022 Monocytes/100 WBC (Bld) 8.8 % 0-10 [facility] Work Phone: Blood platelet mean volumeon 04-03-2022 Platelet mean volume (Bld) [Entitic vol] 10.0 fL 6.2-12.0 [facility] Work Phone: [phone] Determination of erythrocyte mean corpuscular volume (MCV)on 04-03-2022 MCV (RBC) [Entitic vol] 88.4 fL 80-94 [facility] Work Phone: Hematocrit Auto (Bld) [Volum e fraction]on 04-03-2022 Hematocrit (Bld) [Volume fraction] 41.8 % 40-54 [facility] Work Phone: [phone] Ketones Test strip Ql (U)on 04-03-2022 Ketones Ql (U) Negative Negative [facility] Work Phone: [phone] Laboratory - Chemistry and C hemistry - challengeon 04-03-2022 ALP [Catalytic activity/Vol] 79 U/L 45-117 [facility] Work Phone: ALT [Catalytic activity/Vol] 21 U/L 16-61 [facility] Work Phone: CO2 [Moles/Vol] 26.0 mmol/L 21.0-32.0 [facility] Work Phone: Cobalamin (Vitamin B12) [Mass/Vol] 382 pg/mL 211-911 [facility] Work Phone: Globulin (S) [Mass/Vol] 3.4 g/dL 2.2-4.2 [facility] Work Phone: Urea nitrogen/Creatinine [Mass ratio] 13.3 mg/mg 10-20 [facility] Work Phone: Laboratory - Hematology and Cell countson 04-03-2022 Erythrocyte distribution width (RBC) [Entitic vol] 42.7 fL 35.1-43.9 [facility] Work Phone: Erythrocyte distribution width (RBC) [Ratio] 13.2 % 11.6-14.6 [facility] Work Phone: Immature granulocytes/100 WBC (Bld) 0.600 % 0.0-0.9 [facility] Work Phone: Comment on above: IG% - Immature Granu locytes (promyelocytes, myelocytes and metamyelocytes) > 1% indicates that a LEFT SHIFT is Present. MCH (RBC) [Entitic mass] 29.6 pg 27.0-32.0 [facility] Work Phone: Nucleated RBC/100 WBC (Bld) [Ratio] 0 % 0-5 [facility] Work Phone: MCHC Auto (RBC) [Mass/Vol]on 04-03-2022 MCHC (RBC) [Mass/Vol] 33.5 g/dL 32-36 [facility] Work Phone: Mucus LM Ql (Urine sed)on Mucus Ql (Urine sed) 0 SEEN /hpf [facility] Work Phone: Nitrite Test strip Ql (U)on 04-03-2022 Nitrite Ql (U) Negative Negative [facility] Work Phone: No Panel Informationon 04-03 Estimated GFR (MDRD) Amer 98 mL/min >60 [facility] Work Phone: Comment on above: GFR Calc Estimated GFR (MDRD) Non-Af Amer 81 mL/min >60 [facility] Work Phone: Comment on above: Non- GFR Calc Urine Microalbumin/Creatini ne Ratio 16.0 mg/g CRE <30 [facility] Work Phone: Vitamin D 25-Hydroxy 46.6 ng/mL [facility] Work Phone: Comment on above: Vitamin D 25(OH) Sta tus Range Deficiency <20 ng/mL (50nmol/L) Insufficiency 20 - 30 ng/mL (50 - 75 nmol/L) Sufficiency 30 - 100 ng/mL (75 - 250 nmol/L) Toxicity >100 ng/mL (>250 nmol/L) Platelets bldon 04-03-2022 Platelets (Bld) [#/Vol] 202 10*3/uL 150-450 [facility] Work Phone: Protein Test strip Ql (U)on 04-03-2022 Protein Ql (U) Negative Negative [facility] Work Phone: Serum or plasma albumin micaela urement (mass/volume)on 04-03-2022 Albumin [Mass/Vol] 3.9 g/dL 3.2-5.0 [facility] Work Phone: Serum or plasma albumin/glob ulin mass ratioon 04-03-2022 Albumin/Globulin [Mass ratio] 1.1 {ratio} 0.9-2.4 [facility] Work Phone: Serum or plasma calcium micaela urement (mass/volume)on 04-03-2022 Calcium [Mass/Vol] 9.0 mg/dL 8.5-10.1 [facility] Work Phone: Serum or plasma cholesterol in HDL measurement (mass/volume)on 04-03-2022 Cholesterol in HDL [Mass/Vol] 57 mg/dL >40 [facility] Work Phone: Comment on above: The drugs N-Acetylcy steine and Metamizole may falsely depress this assay. Reference Range HDL <40 mg/dL Low HDL Cholesterol HDL >or= 60 mg/dL High HDL Cholesterol Serum or plasma cholesterol in VLDL measurement (mass/volume)on 04-03-2022 Cholesterol in VLDL [Mass/Vol] 22 mg/dL 5-40 [facility] Work Phone: Serum or plasma creatinine m easurement (mass/volume)on 04-03-2022 Creatinine [Mass/Vol] 0.98 mg/dL 0.70-1.30 [facility] Work Phone: Comment on above: The validity of the calculated GFR & GFRAA in patients over 70 years has not been determined. Clinical correlation is essential. Serum or plasma low density lipoprotein (LDL) cholesterol measurement (mass/volume)on 04-03-2022 Cholesterol in LDL [Mass/Vol] 44 mg/dL 0-130 [facility] Work Phone: Serum or plasma urea nitroge n measurement (mass/volume)on 04-03-2022 Urea nitrogen [Mass/Vol] 13 mg/dL 7-18 [facility] Work Phone: Squamous epithelial cells de tection in urine sediment by light microscopyon 04-03-2022 Epithelial cells.squamous LM Ql (Urine sed) 0 SEEN /hpf 0-5 [facility] Work Phone: Thin prep Papanicolaou smear with manual screeningon 04-03-2022 Thin prep Papanicolaou smear with manual screening 10 U/L 15-37 [facility] Work Phone: Thin prep Papanicolaou smear with manual screening 6 5-15 [facility] Work Phone: Thin prep Papanicolaou smear with manual screening 9.5 mg/L NO RANGE EST. [facility] Work Phone: Urine blood detectionon 03-21 RBC Ql (U) Negative Negative [facility] Work Phone: RBC Ql (U) 0 SEEN /hpf 0-5 [facility] Work Phone: Urine clarityon 04-03-2022 Clarity (U) Clear Clear [facility] Work Phone: Urine color determinationon 04-03-2022 Color (U) Yellow Yellow [facility] Work Phone: Urine creatinine measurement (mass/volume)on 04-03-2022 Creatinine (U) [Mass/Vol] 59.10 mg/dL NO RANGE EST. [facility] Work Phone: Urine glucose detectionon Glucose Ql (U) Normal mg/dl Normal [facility] Work Phone: Urine leukocyte esterase det ection by dipstickon 04-03-2022 Leukocyte esterase Test strip Ql (U) Negative Negative [facility] Work Phone: Urine pHon 04-03-2022 pH (U) 6.0 [pH] 5.0 - 8.0 [facility] Work Phone: Urine sediment bacteria coun t by microscopy (number/high power field)on 04-03-2022 Bacteria LM.HPF (Urine sed) [#/Area] 0 /[HPF] None Seen [facility] Work Phone: Urine specific gravity measu rementon 04-03-2022 Specific gravity (U) [Rel density] 1.010 1.002-1.03 0 [facility] Work Phone: Urobilinogen Auto test strip Ql (U)on 04-03-2022 Urobilinogen Ql (U) Normal mg/dl Normal [facility] Work Phone: Whole blood hemoglobin A1c/t otal hemoglobin ratio (mass fraction)on 04-03-2022 HbA1c (Bld) [Mass fraction] 6.5 % 3.8-5.6 [facility] Work Phone: Comment on above: Normal < 5.7 % Predi abetic 5.7 - 6.4 % Diabetic >or= 6.5 % Please note range changes. Basic Panelon 07-30-2018 Creatinine mass conc 0.85 mg/dL Normal 0.67-1.17 [facility] Comment on above: Performed By: #### C BCD1 ####[facility] [place], [place] [address] Glucose mass conc 132 mg/dL High 70-[address] [facility] Comment on above: Performed By: #### C BCD1 ####[facility] [place], [place] [address] Anion gap 3 molar conc 9 mmol/L Normal 8-[address] [facility] Comment on above: Performed By: #### C BCD1 ####[address] [address] CO2 molar conc 29 mmol/L Normal 21-[address] [facility] Comment on above: Performed By: #### C BCD1 ####[address] [address] Urea nitrogen mass conc 11 mg/dL Normal 7-[address] [facility] Comment on above: Performed By: #### C BCD1 ####[address] [address] Calcium mass conc 8.9 mg/dL Normal 8.5-10.[address] [facility] Comment on above: Performed By: #### C BCD1 ####[address] [address] Chloride molar conc 101 mmol/L Normal 98-[address] [facility] Comment on above: Performed By: #### C BCD1 ####[address] [address] Potassium molar conc 4.1 mmol/L Normal 3.5-5.1 [facility] Comment on above: Performed By: #### C BCD1 ####[place] [address] Sodium molar conc 135 mmol/L Low 136-[address] [facility] Comment on above: Performed By: #### C BCD1 ####[place] [address] CASE MANAGEMon 07-30-2018 CASE MANAGEM HNO ID: [id number] thor: Spenser Acosta (Sw): Care ManagementAuthor Type: Social WorkerType: Care Mgt Progress NoteFiled: 07/30/2018 9:27 AMNote Text:CARE MANAGEMENT PROGRESS NOTESERVICE DATE: 07/30/2018SERVICE TIME: 9:00 am LOS: 3 daysAdvanced directivesSW was consulted to assist patient in completing advance directives.Patient reported that he would like to review the documents prior tocompleting them. Sw educated pt on the purpose and use of the documents.SW provided patient with a copy of the documents and a booklet explainingtheir purpose and use. Patient reported that he would like to look overthem with his prior to completing them. SW encouraged patient to askfor sw if he would like to complete the documents.No Further SW needs at this time.15 MInSIGNATURE: MARÍA Kovacs PATIENT NAME: Janett VallecilloATE: July 30, 2018 : 9:21 AM PAGER/CONTACT #: [phone] Normal [facility] CHEST 2 VIEWSon 07-30-2018 Protein mass conc Performed at [facility] APPROVED BY: Emery Reddy MD EXAMINATION: CHEST RADIOGRAPH (2 VIEW FRONTAL & LATERAL) CLINICAL HISTORY: Status post fall. Rib fractures. Hemoptysis.MQ: [id number]: 08/07/2018 RESULT: Lines, tubes, and devices: Overlying laboratory monitor leads. Lungs and pleura: Small right-sided pleural effusion. Stable. Probable atelectasis at the left lung base. Stable. No pneumothorax. Cardiomediastinal silhouette: Normal cardiomediastinal silhouette. Other: Left-sided rib fractures involving the left eighth and ninth ribs at least. IMPRESSION: Stable right-sided pleural effusion. Stable diminished aeration left lung base most likely atelectasis. Left-sided rib fractures. Normal [facility] Hemogram/Diffon 07-30-2018 Abs Immature Grans 0.04 thou/cmm Normal 0.00-0.05 [facility] Comment on above: Performed By: #### C BCD1 ####[place] [address] Abs. Baso 0.02 thou/cmm Normal 0.01-0.[address] [facility] Comment on above: Performed By: #### C BCD1 ####[place] [address] Abs. Bucks 0.73 thou/cmm Normal 0.30-0.[address] [facility] Comment on above: Performed By: #### C BCD1 ####[address] [address] Abs. Neut (ANC) 5.98 thou/cmm High 1.78-5.[address] [facility] Comment on above: Performed By: #### C BCD1 ####[place] [address] Basophils/100 WBC Auto (Bld) 0.2 % Normal [facility] Comment on above: Performed By: #### C BCD1 ####[place] [address] Eosinophils Auto #/vol (Bld) 0.25 thou/cmm Normal 0.04-0.[address] [facility] Comment on above: Performed By: #### C BCD1 ####[place] [address] Eosinophils/100 WBC Auto (Bld) 3.1 % Normal [facility] Comment on above: Performed By: #### C BCD1 ####[place] [address] Erythrocyte distribution width Auto Ratio (RBC) 12.8 % Normal 11.6-14.[address] [facility] Comment on above: Performed By: #### C BCD1 ####[place] [address] Hematocrit Auto Volume Fraction (Bld) 39.3 % Low 40.1-51.[address] [facility] Comment on above: Performed By: #### C BCD1 ####[place] [address] Hemoglobin mass conc (Bld) 13.3 g/dL Low 13.7-17.[address] [facility] Comment on above: Performed By: #### C BCD1 ####[place] [address] Immature Grans 0.50 % Normal [facility] Comment on above: Performed By: #### C BCD1 ####[place] [address] [place], [place] [address] Lymphocytes Auto #/vol (Bld) 0.99 thou/cmm Normal 0.84-2.[address] [facility] Comment on above: Performed By: #### C BCD1 ####[address] [address] Lymphocytes/100 WBC Auto (Bld) 12.4 % Normal [facility] Comment on above: Performed By: #### C BCD1 ####[address] [address] MCH Auto Entitic mass (RBC) 29.7 pg Normal 25.7-32.[address] [facility] Comment on above: Performed By: #### C BCD1 ####[place] [address] MCHC Auto mass conc (RBC) 33.8 % Normal 32.3-36.[address] [facility] Comment on above: Performed By: #### C BCD1 ####[address] [address] MCV Auto Entitic volume (RBC) 87.7 fL Normal 83.2-95.[address] [facility] Comment on above: Performed By: #### C BCD1 ####[address] [address] Monocytes/100 WBC Auto (Bld) 9.1 % Normal [facility] Comment on above: Performed By: #### C BCD1 ####[address] [address] Platelet mean volume Auto Entitic volume (Bld) 10.4 fL Normal 8.7-12.[address] [facility] Comment on above: Performed By: #### C BCD1 ####[address] [address] Platelets Auto #/vol (Bld) 184 thou/cmm Normal 141-[address] [facility] Comment on above: Performed By: #### C BCD1 ####[address] [address] RBC Auto #/vol (Bld) 4.48 mil/cmm Low 4.63-6.[address] [facility] Comment on above: Performed By: #### C BCD1 ####[address] [address] RDW SD 41.2 fl Normal 36.1-45.[address] [facility] Comment on above: Performed By: #### C BCD1 ####[address] [address] Seg Neutrophil 74.7 % Normal [facility] Comment on above: Performed By: #### C BCD1 ####[address] [address] WBC Auto #/vol (Bld) 8.01 thou/cmm Normal 4.23-9.07 [facility] Comment on above: Performed By: #### C BCD1 ####[address] [address] Ionized Calciumon 07-30-2018 Ionized Ca,PH7.4 4.51 mg/dL Normal 4.36-4.[address] [facility] Comment on above: Performed By: #### C BCD1 ####[place] [address] Ionized Calcium 4.57 mg/dL Normal 4.43-4.[address] [facility] Comment on above: Performed By: #### C BCD1 ####[address] [address] pH (Bld) 7.375 [pH] Normal 7.320-7.[address] [facility] Comment on above: Performed By: #### C BCD1 ####[address] [address] MDRD GFRon 07-30-2018 GFR/1.73 sq M predicted among non-blacks MDRD vol rate/area (S/P/Bld) mL/min/{1.73_m2} Normal >60mL/min/ 1.73m2 [facility] Comment on above: Result Comment: If t he patient is , multiply the result by 1.210. Performed By: #### G FR ####[place] [id number] PROGRESSon 07-30-2018 Protein mass conc HNO ID: [id number] thor: Vadim Macias) LyleService: TraumaAuthor Type: Physician AssistantType: Progress NotesFiled: 07/30/2018 8:07 AMNote Text:Trauma Surgery Progress NoteSERVICE DATE: 07/30/2018SUBJECTIVE:Patient doing well this am. Pain is under much better control at thistime. Continues to notes productive cough but improved with Mucinex.Denies cp, sob, abd pain, n/v. Passing flatus but no BM. Voidingregularly. Patient notes that he got up with PT and walked the [employer] yesterday.Tolerating diet DIET HEART HEALTHYNausea NoEmesis NoFlatus YesBowel movement NoPain Controlled NoAmbulating NoOBJECTIVE:Vitals:Temp (24hrs), Av.5 ?C (97.7 ?F), Min:36.4 ?C (97.5 ?F), Max:36.6 ?C(97.9 ?F)BP 125/70 Pulse 83 Temp 36.4 ?C (97.5 ?F) (Oral) Resp 18 Ht177.8 cm (5' 10) Wt 80.6 kg (177 lb 12.8 oz) SpO2 94% BMI 25.51kg/m?O2 Therapy: Room AirIANDO:Date 07/29/18699 - 07/30/18 0659 07/30/18 07 - 07/31/18 0659Shift 6251-6126 8556-2514 2734-7806 24 Hour Total 6288-8468 [id number] 24 Hour TotalINTAKE PO 360 872 126 5511 PO 360 514 399 6049 Shift Total 360 960 360 1680OUTPUT Urine 4 4 Void (ml) 4 4 Urine Not Saved. 3 x 1 x 4 x # of BMs Number of BMs 0 x 0 x Shift Total 4 4Weight (kg) 81.6 81.6 80.6 80.6 80.6 80.6 80.6 80.6MEDICATIONSCurrent Facility-Administered Medications:polyethylene glycol 3350 17 g packet (MIRALAX, GLYCOLAX) 17 g ORAL DAILYCholecalciferol (Vitamin D3) 5,000 Units cap(s) 5,000 Units ORAL DAILYcyclobenzaprine 10 mg tab(s) (FLEXERIL) 10 mg ORAL TID PRNsenna-docusate 8.6-50 mg 1 tablet (SENNA-S) 1 tablet ORAL BIDaspirin 81 mg chewable tab(s) 81 mg ORAL DAILYclopidogrel 75 mg tab(s) (PLAVIX) 75 mg ORAL DAILYacetaminophen 975 mg tab(s) (TYLENOL) 975 mg ORAL QIDHYDROmorphone 0.5 mg injection (DILAUDID) 0.5 mg INTRAVENOUS q 4 H PRNoxyCODONE IR 5-10 mg tab(s) (ROXICODONE) 5-10 mg ORAL q 4 H PRNenoxaparin 30 mg injection (LOVENOX) 30 mg SUBCUTANEOUS BIDguaiFENesin 600 mg ER tab(s) (MUCINEX) 600 mg ORAL q 12 Hipratropium-albuterol 3 mL nebulizer solution (DUONEB) 3 mL INHALATION TIDmetoprolol succinate ER 25 mg tab(s) (TOPROL XL) 25 mg ORAL DAILYnitroglycerin sublingual 0.4 mg tab(s) (NITROQUICK) 0.4 mg SUBLINGUAL PRN0.9% NaCl 3-5 mL 3-5 mL INTRAVENOUS q 12 Halbuterol 2.5 mg /3 mL (0.083 %) 2.5 mg (PROVENTIL) 2.5 mg INHALATION q 4H PRNondansetron 4 mg tab(s) (ZOFRAN) 4 mg ORAL q 6 H PRNOrondansetron (PF) 4 mg injection (ZOFRAN) 4 mg INTRAVENOUS q 6 H PRNLabs:Recent Labs 07/29/1803NA 135* 134* 136K 4.1 4.2 4.4CHLOR 101 100 102CO2 29 28 29BUN 11 12 13CREAT 0.85 0.89 0.92GLUC 132* 135* 153*ANION 9 10 9CA 8.9 9.4 8.5MG -- 2.1 2.1P -- 3.8 2.8WBC 8.01 12.06* 10.04*HB 13.3* 13.9 13.5*HCT 39.3* 41.1 40.9PLT 184 181 194Exam:GENERAL: No distress, Alert. Not appearing acutely illNEURO: AANDOx3, CN II-XII grossly intactHEENT: normocephalic, atraumaticLUNGS: Unlabored breathing. SpO2 94% on 3L NC. Lungs CTAB.CARDIAC: Regular rate and rhythm as aboveABDOMEN: Soft, non-tender, non-distended. Bowel sounds normoactive.EXTREMITIES: WHEAT, No deformities, No edema. Pedal pulses 2+SKIN: Skin color, texture, turgor normal, No rashes or lesionsASSESSMENT AND PLAN:Active Hospital Problems Diagnosis Date Noted- Fall 07/28/2018- Dizziness 07/28/2018- Contusion of left lung 07/28/2018- Fracture three ribs-closed, left, initial encounter 07/27/201868 year old male s/p fall with L 7-10 rib fx- Pain control - scheduled Tylenol, prn Flexeril, OxyIR 5-10 mg forsever, Dilaudid 0.5 mg breakthrough - will d/c Dilaudid today- Heart healthy diet- DVT ppx: Lovenox, SCDs- Bowel regimen - Senna-S, Miralax- IS, DUONEB, Mucinex, EZPAP- 2-view CXR 07/30 pending- Continue home meds- Hosp Med - patient declined further testing for syncope- Dispo: PT/OT recommending home at discharge. Patient assures that hisspouse will help him at home. Needs FMLA ppwk completed. Possibledischarge home 07/30/18.KEYSHAWN Miller-C10/07/20188:05 AMTrauma Service Pager:For questions or concerns Mon-Fri 6a-5p please page [phone].After 5pm and on Weekends and Holidays, please page [phone] if in ICU or [phone] on RNF.SIGNATURE: NATE MillerC PATIENT NAME: Janett Tan: July 30, 2018 : 8:06 AM Pager: [phone] Normal [facility] Basic Panelon 07-29-2018 Creatinine mass conc 0.89 mg/dL Normal 0.67-1.17 [facility] Comment on above: Performed By: #### P 8 ####[facility] [place], [place] [address] Glucose mass conc 135 mg/dL High 70-[address] [facility] Comment on above: Performed By: #### P 8 ####[facility] [place], [place] [address] Urea nitrogen mass conc 12 mg/dL Normal 7-[address] [facility] Comment on above: Performed By: #### P 8 ####[facility] [place], [place] [address] Anion gap 3 molar conc 10 mmol/L Normal 8-[address] [facility] Comment on above: Performed By: #### P 8 ####[address] [address] Calcium mass conc 9.4 mg/dL Normal 8.5-10.[address] [facility] Comment on above: Performed By: #### P 8 ####[address] [address] CO2 molar conc 28 mmol/L Normal 21-[address] [facility] Comment on above: Performed By: #### P 8 ####[address] [address] Chloride molar conc 100 mmol/L Normal 98-[address] [facility] Comment on above: Performed By: #### P 8 ####[address] [address] Potassium molar conc 4.2 mmol/L Normal 3.5-5.1 [facility] Comment on above: Performed By: #### P 8 ####[address] [address] Sodium molar conc 134 mmol/L Low 136-[address] [facility] Comment on above: Performed By: #### P 8 ####[address] [address] CASE MGT INIT VANESSAon 2017 CASE MGT INIT VANESSA HNO ID: [id number] thor: Darcy Piña) Keli, RNService: Care ManagementAuthor Type: Registered NurseType: Care Mgt Initial AssessmentFiled: 07/29/2018 3:06 PMNote Text:CARE MANAGEMENT: ASSESSMENT AND DISCHARGE PLANSERVICE DATE: 07/29/2018SERVICE TIME: 3:04 PMPRIMARY CARE PHYSICIAN:Roland Farah, LINGhone: [phone] STATUS: InpatientNeeds Prior to Discharge: To Be DeterminedMEDICAL:Patient/Rep resentative Stated Goals:To return home to life as it wasHealth Insurance: BLUE ACCESS PPOConfirmed MedicareHealth Issues Impacting Discharge Plan: NoneLast Admission Date: noneIs this Within the Past 30 days? NoAdvance Directive:Current Advance Directive: NoneCare Chief Underwriter Attempted to Assist with AD Completion: YesAction: Education Provided (SW paged to assist with completion)Health Literacy:1. How often do you need to have someone help you when you readinstructions, pamphlets, or other written material from your doctor orpharmacy? Never - 12. How confident are you filling out medical forms by yourself? Extremely- 1If Patient scores > 3 on either question, the following interventions wereput into place:Patient did not score > 3FUNCTIONAL AND COGNITIVE/BEHAVIORALPRIOR TO ADMISSION:Baseline Mental Status: Alert AND Oriented, Person, Place , Time andSituationFunctional Status: IndependentDoes Patient Currently Receive Any Community Services or Home Care? NoneEquipment Prior to Admission: NoneHas the Patient Been in a Snf Facility in the Past 30 days? NoSOCIAL:Living Arrangement: Home, First floor living. Laundry in basementLives With: SpouseFinancial Resources: RetiredPrimary Contact: Extended Emergency Contact InformationPrimary Emergency Contact: Amanda Vuong Vvvnbqfc: SpouseSupportive: YesOther Important Patient Contacts: NoneCaregiver Assessment:Caregiver is ready, willing and able to meet the patient's needs asrecommended by the inter-professional team? YesPatient's transition needs and plan for meeting these needs:Does the patient have an acute stroke diagnosis, or has the patient had astroke during this admission? NoMedication Adherence:I am convinced of the importance of my prescription medication: Agreemostly - 0I worry that my prescription medication will do more harm than good to meDisagree mostly - 0I feel financially burdened by my yjs-hj-nhhglm expenses for myprescription medication: Disagree completely - 0Patient is categorized as low risk < 2Are you interested in bedside delivery of your medications? YesFood Concerns:In the Last Month, Have You had Trouble Getting Food? No trouble gettingfoodDuring the Last Month, Have You Worried Whether Your Food Would Run OutBefore You Had Enough Money to Buy More? NoIs the Patient Psychosocially Complex? NoASSESSMENT AND PLAN:Medical Needs: NonePsychosocial Needs: NoneFREEDOM OF CHOICE EXPLAINED:N/APOTENTIAL TRANSITION PLANSNo Services IndicatedPlans to return home with spouse when medically ready for discharge.SIGNATURE: Darcy Dickey RN PATIENT NAME: Janett VallecilloATE: July 29, 2018 : 3:04 PM PAGER/CONTACT #: [phone] [facility] CONSULT PROGon 07-29-2018 Protein mass conc HNO ID: [id number] thor: Chrystal Bostonrvice: [facility] MedicineAuthor Type: PhysicianType: Consult Progress NoteFiled: 07/29/2018 2:32 PMNote Text:DEPARTMENT OF HOSPITAL MEDICINEPROGRESS NOTESERVICE DATE: 07/29/2018SERVICE TIME: 2:22 PMHospital Medicine/Primary Attending: Chrystal Gonzalez MDNIGHT AND WEEKEND COVERAGE:After 7pm, please call cross cover pager #[phone]/Follow up for Medical managementINTERVAL HPI: no acute events overnightPt reported L side chest pain with cough and deep breathing, no othercomplaintsPt endorsed having episodes of dizziness before and he refused eventmonitor due to cost. He follows with boy's adviser and he already talked tohim about this beforePt denied any fever, chills, nausea, vomiting, abd pain,MEDICATIONS: ReviewedCurrent hospital medications:polyethylene glycol 3350 17 g packet (MIRALAX, GLYCOLAX) 17 g ORAL DAILYcyclobenzaprine 10 mg tab(s) (FLEXERIL) 10 mg ORAL TID PRNsenna-docusate 8.6-50 mg 1 tablet (SENNA-S) 1 tablet ORAL BIDaspirin 81 mg chewable tab(s) 81 mg ORAL DAILYclopidogrel 75 mg tab(s) (PLAVIX) 75 mg ORAL DAILYacetaminophen 975 mg tab(s) (TYLENOL) 975 mg ORAL QIDHYDROmorphone 0.5 mg injection (DILAUDID) 0.5 mg INTRAVENOUS q 4 H PRNoxyCODONE IR 5-10 mg tab(s) (ROXICODONE) 5-10 mg ORAL q 4 H PRNenoxaparin 30 mg injection (LOVENOX) 30 mg SUBCUTANEOUS BIDguaiFENesin 600 mg ER tab(s) (MUCINEX) 600 mg ORAL q 12 Hipratropium-albuterol 3 mL nebulizer solution (DUONEB) 3 mL INHALATION TIDmetoprolol succinate ER 25 mg tab(s) (TOPROL XL) 25 mg ORAL DAILYnitroglycerin sublingual 0.4 mg tab(s) (NITROQUICK) 0.4 mg SUBLINGUAL PRN0.9% NaCl 3-5 mL 3-5 mL INTRAVENOUS q 12 Halbuterol 2.5 mg /3 mL (0.083 %) 2.5 mg (PROVENTIL) 2.5 mg INHALATION q 4H PRNondansetron 4 mg tab(s) (ZOFRAN) 4 mg ORAL q 6 H PRNondansetron (PF) 4 mg injection (ZOFRAN) 4 mg INTRAVENOUS q 6 H PRNObjectivePHYSICAL EXAM: BP 122/70 Pulse 82 Temp (Src) 97.7 (Temporal Artery) Resp 18 Ht 5' 10 (1.78m) Wt 180 lb (81.6kg) SpO2 94% BMI 25.83kg/(m2).Gen: Alert, oriented, no distress, cooperativeHENT: NCAT,Eyes: non-icteric scleraNeck: suppleCV: RRR, normal S1,S2, no murmurResp: non-labored, CTBLGI: soft, ND, NTNeuro: no focal deficitMS: no LE edema, no deformitySkin: warm, no rashPsych: appropriate mode and affectDATA:Diagnostic tests reviewed for today's visit:CBC, Coags, BMP, Mg, PhosRecent Labs 07/28/1804WBC 12.06* 10.04*HB 13.9 13.5*HCT 41.1 40.9PLT 181 194NA 134* 136K 4.2 4.4CHLOR 100 102CO2 28 29BUN 12 13CREAT 0.89 0.92GLUC 135* 153*CA 9.4 8.5MG 2.1 2.1P 3.8 2.8CSF AND DilantinLiver Function, Amylase, AND LipaseCardiac EnzymesABGsCXR?IMPRESSION:?Sm all right-sided pleural effusion. ?Probable atelectasis at both lungbases.Assessment/Plan68 year old male presenting as trauma following fall at home after aperiod of lightheadednessFall with lightheadedness and presyncope- pt follows with his boy's adviser, refused event monitor previously dueto cost and he is not interested now either for same reason- EKG showed NSR upon admissionRib fractures and lung confusion- per traumaCAD-continue aspirin, plavix, beta blockerHLD-suggest resume statin Hx copd-continue duonebTobacco abuse-cessation counseled??VTE PROPHYLAXIS: per primary team?Disposition: per primary teamPlan of care discussed with: PatientSIGNATURE: Chrystal Gonzalez MD PATIENT NAME: Janett VallecilloATE: July 29, 2018 : 2:22 PM PAGER/CONTACT #: Normal [facility] Hemogram/Diffon 07-29-2018 Abs Immature Grans 0.02 thou/cmm Normal 0.00-0.05 [facility] Comment on above: Performed By: #### C BCD1 ####[place] [address] Abs. Baso 0.02 thou/cmm Normal 0.01-0.[address] [facility] Comment on above: Performed By: #### C BCD1 ####[place] [address] Abs. Bucks 0.95 thou/cmm High 0.30-0.[address] [facility] Comment on above: Performed By: #### C BCD1 ####[place] [address] Abs. Neut (ANC) 9.50 thou/cmm High 1.78-5.[address] [facility] Comment on above: Performed By: #### C BCD1 ####[place] [id number] Basophils/100 WBC Auto (Bld) 0.2 % Normal [facility] Comment on above: Performed By: #### C BCD1 ####[address] [address] Eosinophils Auto #/vol (Bld) 0.12 thou/cmm Normal 0.04-0.[address] [facility] Comment on above: Performed By: #### C BCD1 ####[address] [address] Eosinophils/100 WBC Auto (Bld) 1.0 % Normal [facility] Comment on above: Performed By: #### C BCD1 ####[address] [address] Erythrocyte distribution width Auto Ratio (RBC) 12.9 % Normal 11.6-14.[address] [facility] Comment on above: Performed By: #### C BCD1 ####[address] [address] Hematocrit Auto Volume Fraction (Bld) 41.1 % Normal 40.1-51.[address] [facility] Comment on above: Performed By: #### C BCD1 ####[address] [address] Hemoglobin mass conc (Bld) 13.9 g/dL Normal 13.7-17.[address] [facility] Comment on above: Performed By: #### C BCD1 ####[address] [address] Immature Grans 0.20 % Normal [facility] Comment on above: Performed By: #### C BCD1 ####[address] [address] Lymphocytes Auto #/vol (Bld) 1.44 thou/cmm Normal 0.84-2.[address] [facility] Comment on above: Performed By: #### C BCD1 ####[address] [address] Lymphocytes/100 WBC Auto (Bld) 11.9 % Normal [facility] Comment on above: Performed By: #### C BCD1 ####[address] [address] MCH Auto Entitic mass (RBC) 29.8 pg Normal 25.7-32.[address] [facility] Comment on above: Performed By: #### C BCD1 ####[address] [address] MCHC Auto mass conc (RBC) 33.8 % Normal 32.3-36.[address] [facility] Comment on above: Performed By: #### C BCD1 ####[place] [address] MCV Auto Entitic volume (RBC) 88.2 fL Normal 83.2-95.[address] [facility] Comment on above: Performed By: #### C BCD1 ####[place] [address] Monocytes/100 WBC Auto (Bld) 7.9 % Normal [facility] Comment on above: Performed By: #### C BCD1 ####[place] [address] Platelet mean volume Auto Entitic volume (Bld) 10.4 fL Normal 8.7-12.[address] [facility] Comment on above: Performed By: #### C BCD1 ####[place] [address] Platelets Auto #/vol (Bld) 181 thou/cmm Normal 141-[address] [facility] Comment on above: Performed By: #### C BCD1 ####[place] [address] RBC Auto #/vol (Bld) 4.66 mil/cmm Normal 4.63-6.[address] [facility] Comment on above: Performed By: #### C BCD1 ####[place] [address] RDW SD 41.8 fl Normal 36.1-45.[address] [facility] Comment on above: Performed By: #### C BCD1 ####[place] [address] Seg Neutrophil 78.8 % Normal [facility] Comment on above: Performed By: #### C BCD1 ####[address] [address] WBC Auto #/vol (Bld) 12.06 thou/cmm High 4.23-9.[address] [facility] Comment on above: Performed By: #### C BCD1 ####[address] [address] Hgb A1con 07-29-2018 Glucose mass conc 143 mg/dL Normal [facility] Comment on above: Performed By: #### C BCD1 ####[address] [address] Hemoglobin A1c/Hemoglobin.total mass fraction (Bld) 6.6 % High 4.2-6.[address] [facility] Comment on above: Result Comment: Meth od is National Glycohemoglobin Standardization Program (NGSP) compliant. Performed By: #### C BCD1 ####[place] [address] Ionized Calciumon 07-29-2018 Ionized Ca,PH7.4 4.64 mg/dL Normal 4.36-4.[address] [facility] Comment on above: Performed By: #### I ONCA ####[place] [address] Ionized Calcium 4.69 mg/dL Normal 4.43-4.[address] [facility] Comment on above: Performed By: #### I ONCA ####[place] [address] pH (Bld) 7.377 [pH] Normal 7.320-7.[address] [facility] Comment on above: Performed By: #### I ONCA ####[address] [address] Magnesium Bloodon 07-29-2018 Magnesium mass conc 2.1 mg/dL Normal 1.6-2.[address] [facility] Comment on above: Performed By: #### C BCD1 ####[place] [id number] PROGRESSon 07-29-2018 Protein mass conc HNO ID: [id number] thor: Vadim Macias) LyleService: TraumaAuthor Type: Physician AssistantType: Progress NotesFiled: 07/29/2018 2:07 PMNote Text:Trauma Surgery Progress NoteSERVICE DATE: 07/29/2018SUBJECTIVE:No acute events overnight. Patient notes difficulty sleeping and gettingcomfortable 2/2 rib pain. Also noting productive cough. Denies chills orsweats. Denies CP or sob. Deep respirations are uncomfortable. Passingflatus. - BM.Tolerating diet DIET HEART HEALTHYNausea NoEmesis NoFlatus YesBowel movement NoPain Controlled NoAmbulating NoOBJECTIVE:Vitals:Temp (24hrs), Av.6 ?C (97.8 ?F), Min:36.4 ?C (97.5 ?F), Max:36.7 ?C(98.1 ?F)BP 122/70 Pulse 82 Temp 36.5 ?C (97.7 ?F) (Temporal Artery) Resp18 Ht 177.8 cm (5' 10) Wt 81.6 kg (180 lb) SpO2 94% BMI 25.83kg/m?O2 Therapy: Nasal CannulaIANDO:Date 07/28/18699 - 07/29/1859 07/29/186[address] - 07/30/18 0659Shift 2974-8955 9895-1995 2083-4003 24 Hour Total 5753-3309 0182-53286201-9322 24 Hour TotalINTAKE PO 576 859 3909 120 120 PO 701 766 5533 120 120 IV 345 345 IVPB 250 250 LR 95 95 Shift Total 7861 156 9866 120 120OUTPUT Urine 718 849 3064 Void (ml) 219 875 0246 Shift Total 825 225 1050Weight (kg) 86.8 86.8 81.6 81.6 81.6 81.6 81.6 81.6MEDICATIONSCurrent Facility-Administered Medications:cyclobenzaprine 10 mg tab(s) (FLEXERIL) 10 mg ORAL TID PRNsenna-docusate 8.6-50 mg 1 tablet (SENNA-S) 1 tablet ORAL BIDaspirin 81 mg chewable tab(s) 81 mg ORAL DAILYclopidogrel 75 mg tab(s) (PLAVIX) 75 mg ORAL DAILYacetaminophen 975 mg tab(s) (TYLENOL) 975 mg ORAL QIDHYDROmorphone 0.5 mg injection (DILAUDID) 0.5 mg INTRAVENOUS q 4 H PRNoxyCODONE IR 5-10 mg tab(s) (ROXICODONE) 5-10 mg ORAL q 4 H PRNenoxaparin 30 mg injection (LOVENOX) 30 mg SUBCUTANEOUS BIDguaiFENesin 600 mg ER tab(s) (MUCINEX) 600 mg ORAL q 12 Hipratropium-albuterol 3 mL nebulizer solution (DUONEB) 3 mL INHALATION TIDmetoprolol succinate ER 25 mg tab(s) (TOPROL XL) 25 mg ORAL DAILYnitroglycerin sublingual 0.4 mg tab(s) (NITROQUICK) 0.4 mg SUBLINGUAL PRN0.9% NaCl 3-5 mL 3-5 mL INTRAVENOUS q 12 Halbuterol 2.5 mg /3 mL (0.083 %) 2.5 mg (PROVENTIL) 2.5 mg INHALATION q 4H PRNondansetron 4 mg tab(s) (ZOFRAN) 4 mg ORAL q 6 H PRNOrondansetron (PF) 4 mg injection (ZOFRAN) 4 mg INTRAVENOUS q 6 H PRNLabs:Recent Labs 07/28/1804NA 134* 136K 4.2 4.4CHLOR 100 102CO2 28 29BUN 12 13CREAT 0.89 0.92GLUC 135* 153*ANION 10 9CA 9.4 8.5MG 2.1 2.1P 3.8 2.8WBC 12.06* 10.04*HB 13.9 13.5*HCT 41.1 40.9PLT 181 194Exam:GENERAL: No distress, Alert. Not appearing acutely illNEURO: AANDOx3, CN II-XII grossly intactHEENT: normocephalic, atraumaticLUNGS: Unlabored breathing. SpO2 94% on 3L NC. Lungs CTAB.CARDIAC: Regular rate and rhythm as aboveABDOMEN: Soft, non-tender, non-distended. Bowel sounds normoactive.EXTREMITIES: WHEAT, No deformities, No edema. Pedal pulses 2+SKIN: Skin color, texture, turgor normal, No rashes or lesionsASSESSMENT AND PLAN:Active Hospital Problems Diagnosis Date Noted- Fall 07/28/2018- Dizziness 07/28/2018- Contusion of left lung 07/28/2018- Fracture three ribs-closed, left, initial encounter 07/27/201868 year old male s/p fall with L 7-10 rib fx- Pain control - scheduled Tylenol, prn Flexeril, OxyIR 5-10 mg forsever, Dilaudid 0.5 mg breakthrough- Heart healthy diet- DVT ppx: Lovenox, SCDs- Bowel regimen - Senna-S, added Miralax- IS, DUONEB, Mucinex, EZPAP- 2-view CXR 07/30- Continue home meds- Hosp Med - patient declined further testing for syncope- Dispo: PT/OT consults pending.KEYSHAWN Miller-C102:06 PMSIGNATURE: Vadim Richter PA-C PATIENT NAME: Janett VallecilloATE: July 29, 2018 : 2:06 PM Pager: [phone] Normal [facility] Phosphorus Bloodon 8 Phosphate mass conc 3.8 mg/dL Normal 2.5-4.[address] [facility] Comment on above: Performed By: #### C BCD1 ####[place] [address] THERAPY NTon 07-29-2018 THERAPY NT HNO ID: [id number] thor: Jason (Pt) HelenService: Physical TherapyAuthor Type: Physical TherapistType: Therapy (PT/OT/Speech/Resp)Filed: 07/29/2018 5:29 PMNote Text:Physical Therapy EvaluationSERVICE DATE: 07/29/2018SERVICE TIME: 1607 to 1625ROOM: [id number] Discharge Disposition: HomeAnticipated Discharge Needs: Physical Assist at HomePhysical Assist at Home for:Cleaning;Laundry;Meals;Sh opping;TransportationPT Recommendations to Nursing: Ambulate without device;To bathroom;InhallsDevice: No DevicePT 6 Clicks Score: 24Precautions/Activity Restrictions: Lines/Tubes/DrainsPrecaution/ Activity Restriction Comments: 2.5L O2 NCASSESSMENT :Patient presents with a medically stable condition and presents nearbaseline level of functional mobility required for safe discharge home.The patient does not require further acute care physical therapyintervention during this hospital admission.Patient description of this fall and previous falls very similar tonear-syncope, had one syncopal event at work. Very brief time betweenprodromal and near-syncope/syncope; occur most frequently withlevel-changing transfers (such as standing quickly or supine to sitting)but also with ambulation.Patient Disposition at Start of Session: Supine in Bed;Call Barnes inReach;Family PresentPatient Disposition at End of Session: Call Barnes in Reach;Family Present(seated EOB)Tolerated Full SessionPhysical Therapy Problem List: PainPatient /Caregiver Goals: Go HomePLAN:Treatment Frequency (times per week): Discontinue Therapy ServicesReasons Therapy Services Discontinued: Independent in all functionalmobility Current admissionPlan of Care developed with: PatientTREATMENT INTERVENTIONS:Therapy Diagnosis: Reduced mobility-otherInterventions Provided: Evaluation;Therapeutic Activity (35979)$ Evaluation-Low (43315) Billed Units: 1 unitTherapeutic Activity (77245) Treatment Minutes: 50 unitsSkilled Intervention(s): Education with disease process, modifyingtransfers/mobility to decrease risk of sudden near- and syncope,consulting boy's adviser for possible contributions to recent syncopal andnear-syncopal events, mobility safety.Total Timed Code Treatment Minutes: 5Total Treatment Time (minutes): 18FUNCTIONAL G CODE:PT 6 Clicks Score: 24 (07/29/18 1607)Mobility: Walking and Moving Around Current Status (G8978): ()Mobility: Walking and Moving Around Goal Status (G8979): ()Mobility: Walking and Moving Around Discharge Status (G8980): ()Based on clinical assessment and the score on the 6 Clicks FunctionalAssessment Tool, the G code and corresponding severity modifiers aredocumented above.SUBJECTIVE:Current Hospital Course: Chart reviewed; Transfer [place]. GCS atScene was 15. States that he got dizzy and fell off of his porch ~3 feetonto his AC unit. Reports prior episodes of dizziness without syncope, butdenies CP/SOB or any other symptoms prior to fall. States that he wasambulatory after the fall.CT Chest/Abdomen/Pelvis: Left lower lobe pulmonary contusion. Acutefractures of left ribs 7 through 10.Admit to SICU: High risk for developing pulmonary complications andrespiratory failure requiring mechanical ventilationSeen by PT on medical floor.Reason for Physical Therapy Consult : safety assessment s/p traumatic fallRelevant Past Medical History: MA, HTNActive Hospital Problems Diagnosis- Fall- Dizziness- Contusion of left lung- Fracture three ribs-closed, left, initial encounterPAST MEDICAL HISTORYDiagnosis Date- Heart attack (HCC)- High cholesterol- HypertensionPAST SURGICAL HISTORYProcedure Laterality Date- ANGIOPLASTY HX with cardiac stent x1- APPENDECTOMY HX- TONSILLECTOMY HXPatient Report: Identification verified x2, patient agreeable to therapy.Home EnvironmentPatient Lives With: SpouseAssistance Available: multimedia services coordinator ( works during the day until 2pm)Entry To Home: StairsNumber Of Stairs Into Home: 3Number Of Stairs To Bed/Bath: 0Tub/Shower Type: standard tubLaundry: first floorEquipment Owned: (None)Prior Functional Level: Within Functional LimitsPrior Functional Level Comments: Independent, no AD, active, works parttimeOBJECTIVE:Range of Motion: ROM Limitation CommentsROM Limitation Comments: trunk decreased 2/2 painStrength: WFLCURRENT FUNCTIONAL STATUS:Current Functional Mobility Assist Level Additional InformationRollingSupine to Sit SupervisionSit to SupineScootingSit to Stand Stand By AssistanceStand to Sit Stand By AssistanceBed to ChairToilet/CommodeGait Stand By Assistance Gait Device: None Gait Distance (feet): 250 o7Wajprl Stand By Assistance Stairs Device: RailNumber of Stairs: 4Curb StepCar TransferNo significant gait deviances.Please see discipline specific clinical documentation flowsheet forcomplete details for this therapy evaluation/treatment.EMMANUELATMICKEY E: Jason Cervantes PT PATIENT NAME: Janett VallecilloATE: July 29, 2018 : 4:50 PM Normal [facility] THERAPY NT HNO ID: [id number] thor: Jie (Otr/L) Nicke: Occupational TherapyAuthor Type: Occupational TherapistType: Therapy (PT/OT/Speech/Resp)Filed: 07/29/2018 4:45 PMNote Text:Occupational Therapy EvaluationSERVICE DATE: 07/29/2018SERVICE TIME: 1440 to 1455ROOM: [id number] Discharge Disposition: HomeRecommended Discharge Disposition Comments: Pt to d/c home with increasedassist from wifeAnticipated Discharge Needs: Physical Assist at HomePhysical Assist at Home for:Cleaning;Laundry;Meals;Sh opping;TransportationOT Recommendations to Nursing: To Bathroom for ADL?s /and or Toileting;OOBfor mealsOT 6 Clicks Score: 24ASSESSMENT:OT Evaluation Low Complexity:Occupational Profile - Brief review of patient's medical record completed(please see current hospital course of evaluation).Occupational Performance - Pt presents with no deficits.Complexity in Clinical Decision Making - The extent of clinical reasoningwas low, no need for modifications during the evaluation process, fewcomorbidities present to affect patient's occupational performance: MIPatient Disposition at Start of Session: Supine in Bed;Call Barnes in ReachPatient Disposition at End of Session: Call Barnes in Reach;Supine in BedTolerated Full SessionOccupational Therapy Problem List: Pain;Impaired Self Care;DecreasedActivity TolerancePatient /Caregiver Goals: Go HomePLAN:Treatment Frequency (times per week): Discontinue Therapy Services (1-3)Reasons Therapy Services Discontinued: Independent in all functionalmobility;No skilled needs Current admissionPlan of Care developed with: PatientTREATMENT INTERVENTIONS:Therapy Diagnosis: Reduced mobility-otherInterventions Provided: Evaluation;Self Intermediate Management (64797)$ Evaluation-Low (14656) Billed Units: 1 unitSelf Intermediate Management (90041) Treatment Minutes: 50 unitsSkilled Intervention(s): Edu pt on log rolling technique to decrease painwith getting in/out of bed. Edu pt on crossed leg dressing technique andsquatting instead of bending to decrease pain/dizziness. Facilitated ptdon/doff sock with good return demo of technique. Facilitated functionalmobility to bathroom for on/off toilet to assess safety awareness andvarious orthostatic positions. Edu pt on importance of leaving O2 on untildoctor starts to wean him off.Total Timed Code Treatment Minutes: 5Total Treatment Time (minutes): 15FUNCTIONAL G CODE:OT 6 Clicks Score: 24 (07/29/181439)$ Self Care Current Status (G8987): (07/29/181439)$ Self Care Goal Status (G8988): (07/29/180)$ Self Care Discharge Status (G8989): (07/29/181439)Based on clinical assessment and the score on the 6 Clicks FunctionalAssessment Tool, the G code and corresponding severity modifiers aredocumented above.SUBJECTIVE:Current Hospital Course: Chart reviewed; This is a 68 year old male withs/p 3 ft fall off of porch (2/2 dizziness) with L 7-10 rib fractures,pulmonary contusion. Complains of Left sided chest pain s/p fall.Statesthat he got dizzy and fell off of his porch ~3 feet onto his AC unit.Reports prior episodes of dizziness without syncope.Impression CT Chest/Abdomen/Pelvis:(+) Left lower lobe pulmonary contusion(+) acute fractures of L ribs 7-10Active Hospital Problems Diagnosis- Fall- Dizziness- Contusion of left lung- Fracture three ribs-closed, left, initial encounterPAST MEDICAL HISTORYDiagnosis Date- Heart attack (HCC)- High cholesterol- HypertensionPAST SURGICAL HISTORYProcedure Laterality Date- ANGIOPLASTY HX with cardiac stent x1- APPENDECTOMY HX- TONSILLECTOMY HXReason for Occupational Therapy Consult: Progressive mobility protocolRelevant Past Medical History: MA, HTNPatient Report: Patient reports he is doing well, just has pain. 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)Entry To Home: StairsNumber Of Stairs Into Home: 3Number Of Stairs To Bed/Bath: 0Tub/Shower Type: standard tubLaundry: first floorEquipment Owned: (None)Prior Functional Level: Within Functional LimitsPrior Functional Level Comments: Independent, no AD, active, works parttimeOBJECTIVE: Responsiveness: Alert;AwakeFollows Commands: 2-step Commands Memory Deficits: (3/3) Mini Cog Score: 5 (07/29/181439)CURRENT FUNCTIONAL STATUS:Current Activities of Daily Living Assist LevelFeeding Modified IndependentGrooming Modified IndependentBathing Upper Body Stand By AssistanceBathing Lower Body Stand By AssistanceDressing Upper Body Stand By AssistanceDressing Lower Body Stand By AssistanceToileting Modified IndependentFunctional Mobility Assist LevelRollingSupine to SitSit to SupineScootingSit to Stand Stand By AssistanceStand to Sit Stand By AssistanceBed to ChairToilet/Commode Stand By AssistanceFunctional Mobility Stand By Assistance (None)Hand Dominance: RightRange of Motion: WFLStrength: WFL Patient left reclined in bed with call light in reach.Please see discipline specific clinical documentation flowsheet forcomplete details for this therapy evaluation/treatment.SIGNATUR E: Aruna Unger S/OT PATIENT NAME: Janett VallecilloATE: July 29, 2018 : 3:11 PM Normal [facility] Total 25-OH Vitamin Don 10-0 Total 25-OH Vitamin D 28.6 ng/mL Low 30.0-100.0 [facility] Comment on above: Performed By: #### C BCD1 ####[place] [address] Basic Panelon 07-28-2018 Creatinine mass conc 0.92 mg/dL Normal 0.67-1.17 [facility] Comment on above: Performed By: #### P 8 ####[place] [address] Glucose mass conc 153 mg/dL High 70-[address] [facility] Comment on above: Performed By: #### P 8 ####[facility] [place] [address] Urea nitrogen mass conc 13 mg/dL Normal 7-[address] [facility] Comment on above: Performed By: #### P 8 ####[facility] [place] [address] Anion gap 3 molar conc 9 mmol/L Normal 8-[address] [facility] Comment on above: Performed By: #### P 8 ####[place] [address] Calcium mass conc 8.5 mg/dL Normal 8.5-10.[address] [facility] Comment on above: Performed By: #### P 8 ####[facility] [place], [place] [address] CO2 molar conc 29 mmol/L Normal 21-[address] [facility] Comment on above: Performed By: #### P 8 ####[facility] [place], [place] [address] Chloride molar conc 102 mmol/L Normal 98-[address] [facility] Comment on above: Performed By: #### P 8 ####[facility] [place], [place] [address] Potassium molar conc 4.4 mmol/L Normal 3.5-5.1 [facility] Comment on above: Performed By: #### P 8 ####[facility] [place], [place] [address] Sodium molar conc 136 mmol/L Normal 136-[address] [facility] Comment on above: Performed By: #### P 8 ####[address] [address] CHEST 1 VIEWon 07-28-2018 Protein mass conc Performed at [facility] APPROVED BY: Emery Reddy MD EXAM TITLE: CHEST 1 VIEW DATE: 07/28/2018 06:08 INDICATION: Status post trauma. COMPARISON: CT scan dated 07/27/2018 Portable frontal view of the chest shows small right-sided pleural effusion. Probable atelectasis at both lung bases medially. No pneumothorax. Heart size is normal. IMPRESSION: Small right-sided pleural effusion. Probable atelectasis at both lung bases. Normal [facility] CONSULTon 07-28-2018 CONSULT HNO ID: [id number] thor: Marlin Keithe: [facility] MedicineAuthor Type: PhysicianType: ConsultsFiled: 07/28/2018 10:17 PMNote Text:[facility] MEDICINEINITIAL CONSULTSERVICE DATE: 07/28/2018SERVICE TIME: 9:46 PMPrimary Care Physician: Roland Farah MDNIGHT AND WEEKEND COVERAGE:After 7pm, please call cross cover pager #[phone] FOR CONSULT: dizzinessREQUESTING PHYSICIAN: Dr Alondra Caicedo COMPLAINT: FallHPI: 68 year old male with hx tobacco abuse, COPD and Cad [place]s at [place] with a fall at home. Patient states that hewas bent over and stood up from this bent over position and got verylightheaded and fell about three feet onto AC unit. Patient was admittedto SICU as trauma for L 7-10 rib fractures and left lower lobe pulmonarycontusion due to high risk of respiratory decompensation. Patient states that he has been getting these lightheaded spells for thepast four months or so. Usually they happen when he first gets up andstarts walking. Once about 3 months ago he passed out at work. He did notpass out for his most recent fall. He admits to racing heart at times. Hedenies numbness or tingling. He denies room spinning or feeling like he isspinning. He normally just feels faint and lightheaded when these episodesoccur. He reports seeing his boy's adviser yearly in [place] but alwaysrefuses echo due to cost. Currently, he is having lots of pain from thefractures, as well as cough and shortness of breath as he feels he cannottake a deep breath. He denies abdominal pain, nausea or vomiting. He hasno history of stroke and denies hx DM2.PAST MEDICAL HISTORYDiagnosis Date- Heart attack (HCC)- High cholesterol- HypertensionPAST SURGICAL HISTORYProcedure Laterality Date- ANGIOPLASTY HX with cardiac stent x1- APPENDECTOMY HX- TONSILLECTOMY HXNo family history on file.Social HistorySubstance Use Topics- Smoking status: Current Every Day Smoker Packs/day: 1.00 Types: Cigarettes- Smokeless tobacco: Not on file- Alcohol use Not on file Comment: 1-2x/weeksMEDICATIONS: ReviewedPrescriptions Prior to Admission:clopidogrel bisulfate(PLAVIX 75 MG TAB) Take one(1) tablet daily. Disp:Rfl: 0ATENOLOL 50 MG TAB Take one(1) tablet daily. Disp: Rfl: 0rosuvastatin calcium(CRESTOR 5 MG TAB) Take one(1) tablet daily. Disp:Rfl: 0nitroglycerin(NITROSTAT 0.4 MG SUBLINGUAL TAB) Place one(1) tablet ontongue as needed for chest pain. If no pain relief call 911. Disp: Rfl:0aspirin(ADULT LOW DOSE ASPIRIN 81 MG TAB, DELAYED RELEASE) Take one(1)tablet daily. Disp: Rfl: 0Current [facility] medications:cyclobenzaprine 10 mg tab(s) (FLEXERIL) 10 mg ORAL TID PRNsenna-docusate 8.6-50 mg 1 tablet (SENNA-S) 1 tablet ORAL BIDaspirin 81 mg chewable tab(s) 81 mg ORAL DAILYclopidogrel 75 mg tab(s) (PLAVIX) 75 mg ORAL DAILYacetaminophen 975 mg tab(s) (TYLENOL) 975 mg ORAL QIDHYDROmorphone 0.5 mg injection (DILAUDID) 0.5 mg INTRAVENOUS q 4 H PRNoxyCODONE IR 5-10 mg tab(s) (ROXICODONE) 5-10 mg ORAL q 4 H PRNenoxaparin 30 mg injection (LOVENOX) 30 mg SUBCUTANEOUS BIDmetoprolol succinate ER 25 mg tab(s) (TOPROL XL) 25 mg ORAL DAILYnitroglycerin sublingual 0.4 mg tab(s) (NITROQUICK) 0.4 mg SUBLINGUAL PRN0.9% NaCl 3-5 mL 3-5 mL INTRAVENOUS q 12 Halbuterol 2.5 mg /3 mL (0.083 %) 2.5 mg (PROVENTIL) 2.5 mg INHALATION q 4H PRNondansetron 4 mg tab(s) (ZOFRAN) 4 mg ORAL q 6 H PRNondansetron (PF) 4 mg injection (ZOFRAN) 4 mg INTRAVENOUS q 6 H PRN.ALLERGIESNo Known AllergiesREVIEW OF SYSTEMS:GENERAL: denies weight loss, malaise or feversHEENT: Negative for frequent or significant headaches, No changes inhearing or vision, no nose bleeds or other nasal problemsNECK: Negative for lumps, goiter, pain and significant neck swellingRESPIRATORY: Positive for cough with mucus production, denies hemoptysis,wheezingCARDIOVASC ULAR: Negative for leg swelling, hypertension, CHF orpalpitationsGI: No nausea, vomiting, or diarrheaGU: No history of dysuria, frequency or incontinenceMUSCULOSKELETAL: Positive for chest and rib discomfortSKIN: Denies new rashes or lesionsNEURO: No history of headaches, syncope, paralysis, CVAObjectivePHYSICAL EXAM:BP 127/77 Pulse 83 Temp (Src) 98.1 (Oral) Resp 24 Ht 5' 10(1.78m) Wt 191 lb 5.8 oz (86.8kg) SpO2 97% BMI 27.46 kg/(m2).Physical Exam Performed:GENERAL: Alert, no distress, cooperativeSKIN: Skin color, texture, turgor normal. L knee abrasionHEAD/SINUSES: No significant findingsEYES: PERRLA, EOMINECK: No jugulovenous distention, No carotid bruits, Carotid pulse normalcontour, SuppleLUNGS: Lungs clear to auscultation, Good diaphragmatic excursionHeart-RRR, normal S1 and S2, L chest wall tendernessAbdomen-soft, NT/ND, +BSExtremities-no cyanosis, clubbing, edemaNeuro-CN III-XII intact, sensation intactLines, Drains, and Airways Line Peripheral 07/27/18 Short Right Antecubital 20 Gauge 1 dayReviewed lines, drains, AND airways. Need to be continued yesDATA:Diagnostic tests reviewed for today's visit:Most recent labs and imaging results.Impression/Recommenda tions68 year old male presenting as trauma following fall at home after aperiod of lightheadedness1. Fall with lightheadedness and presyncope-PT/OT, trauma following, paincontrol, lightheadedness episodes-sound possibly orthostatic given usuallyoccur when changing from bending down or sitting to standing, however,some history of racing heart as well and given hx vascular disease, wouldrecommend tele, echo and carotid ultrasound. Unfortunately, patient isfirmly refusing all testing. He is only agreeable to blood pressurechecks. I discussed the importance of checking for any underlying medicalproblem, but he is worried about cost and currently refusing2. Rib fractures and lung confusion-continue pain control, IS, patientstates he cannot cough up mucus-will add mucinex and dubonebs3. CAD-continue aspirin, plavix, beta megan, suggest restart statin4. HLD-suggest resume statin5. Hx copd-continue duoneb6. Tobacco abuse-cessation counseledVTE PROPHYLAXIS: Pneumatic Compression DeviceDisposition: HomePlan of care discussed with: PatientSIGNATURE: Marlin Gagnon DO PATIENT NAME: Jnaett VallecilloATE: July 28, 2018 : 9:46 PM PAGER/CONTACT #: Normal [facility] Hemogram/Diffon 07-28-2018 Abs Immature Grans 0.02 thou/cmm Normal 0.00-0.05 [facility] Comment on above: Performed By: #### C BCD1 ####[address] [address] Abs. Baso 0.02 thou/cmm Normal 0.01-0.[address] [facility] Comment on above: Performed By: #### C BCD1 ####[place] [address] Abs. Bucks 0.98 thou/cmm High 0.30-0.[address] [facility] Comment on above: Performed By: #### C BCD1 ####[place] [address] Abs. Neut (ANC) 7.34 thou/cmm High 1.78-5.[address] [facility] Comment on above: Performed By: #### C BCD1 ####[address] [address] Basophils/100 WBC Auto (Bld) 0.2 % Normal [facility] Comment on above: Performed By: #### C BCD1 ####[address] [address] Eosinophils Auto #/vol (Bld) 0.34 thou/cmm Normal 0.04-0.[address] [facility] Comment on above: Performed By: #### C BCD1 ####[address] [address] Eosinophils/100 WBC Auto (Bld) 3.4 % Normal [facility] Comment on above: Performed By: #### C BCD1 ####[place] [address] Erythrocyte distribution width Auto Ratio (RBC) 13.1 % Normal 11.6-14.[address] [facility] Comment on above: Performed By: #### C BCD1 ####[address] [place] [address] Hematocrit Auto Volume Fraction (Bld) 40.9 % Normal 40.1-51.[address] [facility] Comment on above: Performed By: #### C BCD1 ####[address] [address] Hemoglobin mass conc (Bld) 13.5 g/dL Low 13.7-17.[address] [facility] Comment on above: Performed By: #### C BCD1 ####[place] [address] Immature Grans 0.20 % Normal [facility] Comment on above: Performed By: #### C BCD1 ####[place] [address] Lymphocytes Auto #/vol (Bld) 1.34 thou/cmm Normal 0.84-2.[address] [facility] Comment on above: Performed By: #### C BCD1 ####[place] [address] Lymphocytes/100 WBC Auto (Bld) 13.3 % Normal [facility] Comment on above: Performed By: #### C BCD1 ####[place] [address] MCH Auto Entitic mass (RBC) 29.5 pg Normal 25.7-32.[address] [facility] Comment on above: Performed By: #### C BCD1 ####[place] [address] MCHC Auto mass conc (RBC) 33.0 % Normal 32.3-36.[address] [facility] Comment on above: Performed By: #### C BCD1 ####[place] [address] MCV Auto Entitic volume (RBC) 89.3 fL Normal 83.2-95.[address] [facility] Comment on above: Performed By: #### C BCD1 ####[address] [address] Monocytes/100 WBC Auto (Bld) 9.8 % Normal [facility] Comment on above: Performed By: #### C BCD1 ####[address] [address] Platelet mean volume Auto Entitic volume (Bld) 10.1 fL Normal 8.7-12.[address] [facility] Comment on above: Performed By: #### C BCD1 ####[address] [address] Platelets Auto #/vol (Bld) 194 thou/cmm Normal 141-[address] [facility] Comment on above: Performed By: #### C BCD1 ####[address] [address] RBC Auto #/vol (Bld) 4.58 mil/cmm Low 4.63-6.[address] [facility] Comment on above: Performed By: #### C BCD1 ####[address] [address] RDW SD 42.8 fl Normal 36.1-45.[address] [facility] Comment on above: Performed By: #### C BCD1 ####[address] [address] Seg Neutrophil 73.1 % Normal [facility] Comment on above: Performed By: #### C BCRema ####[address] [address] WBC Auto #/vol (Bld) 10.04 thou/cmm High 4.23-9.[address] [facility] Comment on above: Performed By: #### C BCD1 ####[address] [address] Ionized Calciumon 07-28-2018 Ionized Ca,PH7.4 4.51 mg/dL Normal 4.36-4.[address] [facility] Comment on above: Performed By: #### I ONCA ####[place] [address] Ionized Calcium 4.57 mg/dL Normal 4.43-4.[address] [facility] Comment on above: Performed By: #### I ONCA ####[place] [id number] pH (Bld) 7.374 [pH] Normal 7.320-7.[address] [facility] Comment on above: Performed By: #### I ONCA ####[facility] [place], [place] [address] Magnesium Bloodon 07-28-2018 Magnesium mass conc 2.1 mg/dL Normal 1.6-2.[address] [facility] Comment on above: Performed By: #### M AG ####[address] [address] PLAN OF CAREon 07-28-2018 PLAN OF CARE HNO ID: [id number] thor: Flako Stephens (Shingle Cutter)Service: PharmacyAuthor Type: PharmacistType: Plan of CareFiled: 07/28/2018 1:04 PMNote Text:MEDICATION HISTORY AND MEDICATION RECONCILIATIONPatient Name:Galen ShepherdNanetteRN: [id number]: 2Source of history:Patient: Reliability of source: Appears reliable,clearly identified: Medication name, Medication dose, Medication routeand Medication frequency and Pharmacy records: [facility] [phone] [facility] dataMedication Nonadherence Identified: No barriers notedThe above information represents the best possible medication history: YesReconciliation completed? Yes All FRAME OPERATOR medications addressed by LIPAdditional comments:? Medications removed - Flonase, amoxicillin (both course of therapycomplete)Allergies: ALLERGIESNo Known AllergiesPreferred Pharmacy: [facility] [phone] FRAME OPERATOR Medications:Prior to Admission medications as of 07/28/18 1302Medication Sig Last Dose Takingclopidogrel bisulfate(PLAVIX 75 MG TAB) Take one(1) tablet daily. YesATENOLOL 50 MG TAB Take one(1) tablet daily. Yesrosuvastatin calcium(CRESTOR 5 MG TAB) Take one(1) tablet daily. Yesnitroglycerin(NITROSTAT 0.4 MG SUBLINGUAL TAB) Place one(1) tablet ontongue as needed for chest pain. If no pain relief call 911. Yesaspirin(ADULT LOW DOSE ASPIRIN 81 MG TAB, DELAYED RELEASE) Take one(1)tablet daily. Donovan Stephens PharmDPGY1 Pharmacy [phone]: [id number] 1:02 PM Normal [facility] PROGRESSon 07-28-2018 Protein mass conc HNO ID: [id number] thor: Arthur Crooks: General SurgeryAuthor Type: PhysicianType: Progress NotesFiled: 07/28/2018 6:03 PMNote Text:PROGRESS NOTETrauma Surgery Progress NoteTrauma Service Pager:For questions or concerns Mon-Fri 6a-5p please page [phone].After 5pm and on Weekends and Holidays, please page [phone] if in ICU or [phone] on RNF.SERVICE DATE: 07/28/2018SERVICE TIME: 6:34 AMSUBJECTIVE:SubjectiveSubjec tive: This is a 68 year old male s/p fall with multiple ribfracturesPt feels well. Pain controled with medication, tolerating ISBowel movement NoFlatus NoDiet DIET HEART HEALTHYAmbulating NoNausea NoEmesis NoCurrent Facility-Administered Medications:acetaminophen 975 mg tab(s) (TYLENOL) 975 mg ORAL q 6 Hcyclobenzaprine 10 mg tab(s) (FLEXERIL) 10 mg ORAL TID PRNoxyCODONE IR 5-10 mg tab(s) (ROXICODONE) 5-10 mg ORAL q 4 H PRNHYDROmorphone 0.5-1 mg injection (DILAUDID) 0.5-1 mg INTRAVENOUS q 2 H PRNsenna-docusate 8.6-50 mg 1 tablet (SENNA-S) 1 tablet ORAL BIDmetoprolol succinate ER 25 mg tab(s) (TOPROL XL) 25 mg ORAL DAILYnitroglycerin sublingual 0.4 mg tab(s) (NITROQUICK) 0.4 mg SUBLINGUAL PRNpotassium chloride 80-120 mEq oral liquid 80-120 mEq ORAL/FEEDING TUBE PRNpotassium chloride iv piggyback 20 mEq in sterile water 100 mL 20 mEqINTRAVENOUS PRNmagnesium sulfate in water 2 g in sterile water 50 ml 2 g INTRAVENOUS PRNsodium phosphate 45 mmol in NaCl 0.9% 250 mL 45 mmol INTRAVENOUS PRNcalcium gluconate 4 g in NaCl 0.9% 250 mL 4 g INTRAVENOUS PRNenoxaparin 30 mg injection (LOVENOX) 30 mg SUBCUTANEOUS q 12 HR0.9% NaCl 3-5 mL 3-5 mL INTRAVENOUS q 12 Halbuterol 2.5 mg /3 mL (0.083 %) 2.5 mg (PROVENTIL) 2.5 mg INHALATION q 4H PRNondansetron 4 mg tab(s) (ZOFRAN) 4 mg ORAL q 6 H PRNOrondansetron (PF) 4 mg injection (ZOFRAN) 4 mg INTRAVENOUS q 6 H PRNlidocaine 5 % 1 Patch (LIDODERM) 1 Patch TRANSDERMAL DAILYAndlidocaine patch - REMOVE OTHER AT BEDTIMEAndlidocaine - VERIFY PATCH OTHER q 8 Hlactated ringers infusion 50 mL/hr INTRAVENOUS CONTINUOUSatorvastatin 10 mg tab(s) (LIPITOR) 10 mg ORAL AT BEDTIMEOBJECTIVE:ObjectivePHY SICAL EXAM:VITAL SIGNSBP 132/97 Pulse 77 Temp (Src) 97.7 (Axillary) Resp 26 Ht 5' 10(1.78m) Wt 191 lb 5.8 oz (86.8kg) SpO2 92% BMI 27.46 kg/(m2).Temp (24hrs), Av.9 ?C (98.4 ?F), Min:36.5 ?C (97.7 ?F), Max:37.1 ?C(98.7 ?F)Date 07/27/18 07 - 07/28/18 0659 07/28/18 07 - 07/29/18 0659Shift 8038-5031 9357-2493 0975-6140 24 Hour Total 8281-9657 4688-86300012-5738 24 Hour TotalINTAKE PO 343 315 5796 PO 357 277 4532 IV 279 257.7 536.7 LR 279 257.7 536.7 Shift Total 879 729.7 1608.7OUTPUT Urine 987 728 9344 Void (ml) 849 845 3819 Shift Total 900 350 1250Weight (kg) 83 82.7 86.8 86.8 86.8 86.8 86.8 86.8GENERAL: Alert, no distress, cooperativeSKIN: Skin color, texture, turgor normal. No rashes or lesions.LUNGS: Unlabored breathing on O2 Therapy: Nasal Cannula on Liters: 3sating at SpO2: 92 %CARDIAC: rate and rhythm as above,ABDOMEN: Benign, Soft, non-tender, No masses, hepatosplenomegaly and NolymphadenopathyEXTREMITIES: ROM of all joint grossly normal: strength grossly normalbilaterally. No deformities noted.WOUND: N/ADATA:Diagnostic tests reviewed for today's visit:No results for input(s): BODSITE, CTYPE, PH, PCO2, PO2, BE, HCO3, CO2CT,O2HB, COHB, MHGB, TEMP, PHTC, PCO2T, PO2T, O2AD in the last 72 hours.Recent Labs [id number] 0.92BUN 13NA 136K 4.4CHLOR 102CO2 29ANION 9GLUC 153*CA 8.5P 2.8MG 2.1WBC 10.04*HB 13.5*HCT 40.9PLT 194ASSESSMENT AND PLAN:Active Hospital Problems Diagnosis Date Noted- Fracture three ribs-closed, left, initial encounter 07/27/2018Assessment/PlanThis is a 68 year old male s/p fall with L 7-10 rib hn-HB-caurcdegci pain control-reg diet-1 view cxr pending-transfer to floorI saw and evaluated the patient. Discussed with the resident and agreewith resident's findings and plan as documented in the resident's note.Patient complaining of some rib pain. Breathing adequately. Jameel cardona to floor.SIGNATURE: Terrence Lyons MD PATIENT NAME: Janett ShepherdsDATE: July 28, 2018 : 6:34 AM PAGER: [phone] Normal [facility] Protein mass conc HNO ID: [id number] thor: Josiah Mae: ADT-SICASHELYuthjaneth Type: PhysicianType: Progress NotesFiled: 07/28/2018 10:06 AMNote Text:INPATIENT SICU PROGRESS NOTESERVICE DATE: 07/28/2018SERVICE TIME: 6:21 AMSubjectiveNo acute events o/n. Reports pain moderately well controlled. Denies SOB.~700-800 on IS.Current hospital medications:acetaminophen 975 mg tab(s) (TYLENOL) 975 mg ORAL q 6 Hcyclobenzaprine 10 mg tab(s) (FLEXERIL) 10 mg ORAL TID PRNoxyCODONE IR 5-10 mg tab(s) (ROXICODONE) 5-10 mg ORAL q 4 H PRNHYDROmorphone 0.5-1 mg injection (DILAUDID) 0.5-1 mg INTRAVENOUS q 2 H PRNmetoprolol succinate ER 25 mg tab(s) (TOPROL XL) 25 mg ORAL DAILYnitroglycerin sublingual 0.4 mg tab(s) (NITROQUICK) 0.4 mg SUBLINGUAL PRNpotassium chloride 80-120 mEq oral liquid 80-120 mEq ORAL/FEEDING TUBE PRNpotassium chloride iv piggyback 20 mEq in sterile water 100 mL 20 mEqINTRAVENOUS PRNmagnesium sulfate in water 2 g in sterile water 50 ml 2 g INTRAVENOUS PRNsodium phosphate 45 mmol in NaCl 0.9% 250 mL 45 mmol INTRAVENOUS PRNcalcium gluconate 4 g in NaCl 0.9% 250 mL 4 g INTRAVENOUS PRNenoxaparin 30 mg injection (LOVENOX) 30 mg SUBCUTANEOUS q 12 HR0.9% NaCl 3-5 mL 3-5 mL INTRAVENOUS q 12 Halbuterol 2.5 mg /3 mL (0.083 %) 2.5 mg (PROVENTIL) 2.5 mg INHALATION q 4H PRNondansetron 4 mg tab(s) (ZOFRAN) 4 mg ORAL q 6 H PRNondansetron (PF) 4 mg injection (ZOFRAN) 4 mg INTRAVENOUS q 6 H PRNdocusate sodium 100 mg cap(s) (COLACE) 100 mg ORAL BID PRNlidocaine 5 % 1 Patch (LIDODERM) 1 Patch TRANSDERMAL DAILYlidocaine patch - REMOVE OTHER AT BEDTIMElidocaine - VERIFY PATCH OTHER q 8 Hlactated ringers infusion 50 mL/hr INTRAVENOUS CONTINUOUSatorvastatin 10 mg tab(s) (LIPITOR) 10 mg ORAL AT BEDTIMEObjectiveVITAL SIGNSBP 132/97 Pulse 77 Temp (Src) 97.7 (Axillary) Resp 26 Ht 5' 10(1.78m) Wt 191 lb 5.8 oz (86.8kg) SpO2 92% BMI 27.46 kg/(m2).Temp (24hrs), Av.9 ?C (98.4 ?F), Min:36.5 ?C (97.7 ?F), Max:37.1 ?C(98.7 ?F)Date 07/27/186[address] - 07/28/1859 07/28/[address] - 07/29/18 0659Shift 7526-3503 8833-4212 2154-6305 24 Hour Total 0423-4298 [id number] 24 Hour TotalINTAKE PO 478 642 3957 PO 234 141 4264 IV 279 257.7 536.7 LR 279 257.7 536.7 Shift Total 879 729.7 1608.7OUTPUT Urine 312 987 2482 Void (ml) 304 797 0734 Shift Total 900 350 1250Weight (kg) 83 82.7 86.8 86.8 86.8 86.8 86.8 86.8PHYSICAL EXAM:GENERAL: Alert, no distress, cooperativeSKIN: Skin color, texture, t3or normal. No rashes or lesions.LUNGS: no respiratory distress on O2 Therapy: Nasal Cannula on Liters: 3sating at SpO2: 92 %CARDIAC: Regular rate and rhythm as aboveABDOMEN: soft, mildly distendedEXTREMITIES: WHEAT, no gross deformityNEURO: alert +orientedDATA:Diagnostic tests reviewed for today's visit:No results for input(s): BODSITE, CTYPE, PH, PCO2, PO2, BE, HCO3, CO2CT,O2HB, COHB, MHGB, TEMP, PHTC, PCO2T, PO2T, O2AD in the last 72 hours.Recent Labs [id number] 0.92BUN 13NA 136K 4.4CHLOR 102CO2 29ANION 9GLUC 153*CA 8.5P 2.8MG 2.1WBC 10.04*HB 13.5*HCT 40.9PLT 194Assessment/PlanThis is a 68 year old male with s/p 3 ft fall off of porch (2/2 dizziness)with?L 7-10 rib fractures, pulmonary contusionACTIVE PROBLEM LISTFracture Three Ribs-Closed, Left, Initial EncounterFallDizzinessContusi on of Left LungNeuro:-neurochecks-pain control: tylenol, lidocaine patches, oxycodone, morphine, flexerilCV:-HDS-home statinResp: stable on O2 Therapy: Nasal Cannula-2V CXR P-IS, pulm hygiene-prn duonebs-pain control-wean supp O2GI: DIET HEART HEALTHY-farnaz po well-bowel regimenRenal:-strict Is/Os-prn electrolyte replacement-hep lock IVFNo intake or output data in the 24 hours ending 07/27/18 0659Heme: HGB - 13.5, stable from admissionEndo: GLU - 153, stableID: WBC - 10.04, stableExt: WHEAT, no gross deformity, SCDsPpx: SCDs, LVX BIDLines: PIVConsults: T, SICUDispo: Likely RNF todayPatient ChecklistDeep vein thrombosis prophylaxis administered? Yes.Stress ulcer prophylaxis? No, not indicated..Pain addressed? Yes.Nutrition: Enteral- Yes. TPN- No. PO- Yes.Restraints? No.Dispo needs assessed? Yes.SIGNATURE: Zunilda Holloway MD PATIENT NAME: Janett ShepherdsDATE: July 28, 2018 : 6:21 AM PAGER: [phone] and alertRepeat CXR shows no PTX or large hemothoraxSaO2 OKPain better controlledPlan:Pain controlISOK to resume ASA and PlavixNeed outpatient evaluation of dizziness and syncopeSCDAmbulateI provided 3 minutes of critical care services which were necessary due toabove specified injuries and illnesses. This patient has a highprobability of sudden, clinical significant deterioration, which requiredthe highest level of care and preparedness to intervene urgently. Imanaged and supervised life or organ supporting interventions that requirefrequent assessments. This time does not include time devoted to teachingand to any procedure I billed separately.I have personally seen and examined this patient and participated in thekey components of this encounter with the multi-disciplinary ICU team. Idiscussed the management of this case with the resident andreviewed/confirmed their documentation, attached or in separate note. Ipersonally reviewed today's actual images, the associated image reports,and current labs. I supervised the ordering of additional testing,imaging, labs, and/or consultations. The patient and/or family were fullyinformed of the findings and plan of care. They had the opportunity to askquestions and raise any issues of concern, all of which were answered anddealt with by me to their stated satisfaction.The critical care treatment was mainly directed to address the followingissues:(R04.2) Hemoptysis (primary encounter diagnosis)(R74.8) Elevated troponin(S22.42XA) Fracture three ribs-closed, left, initial encounter(S27.321A) Contusion of left lung, initial encounter(W19.XXXA) Fall, initial encounter(R42) DizzinessManagement included sedation, pain control and ventilation assessmentincluding need for ventilator, weaning and/or extubation as indicated.Management of critical care illnesses are edited above by me, includingsystem by system plan and are not only limited to infectious disease andtailoring the antibiotic therapy, nutrition assessment andsupplementation, electrolyte correction and prevention of ICU relatedcomplications using ventilator bundle, sedation holiday and assessment andremoval of lines and tubes where indicated.SIGNATURE: Josiah Herrera MD PATIENT NAME: Janett VallecilloATE: July 28, 2018 : 10:02 AM [facility] Phosphorus Bloodon 8 Phosphate mass conc 2.8 mg/dL Normal 2.5-4.[address] [facility] Comment on above: Performed By: #### P HOS ####[place] [address] CONSULTon 07-27-2018 CONSULT HNO ID: [id number] thor: Josiah Dougherty: ADT-SICUAuthor Type: PhysicianType: ConsultsFiled: 07/28/2018 9:56 AMNote Text:[]Hide copied textSICU Consult Note?ARRIVAL DATE: 07/27/2018ARRIVAL TIME: 914?CATEGORY: Level 3?INJURY DATE: 07/26/18INJURY TIME: evening??SubjectiveThis is a 68 year old White male- Transfer from [place]. GCS at Scene was15. Patient presents s/p fall from porch onto AC unit yesterday evening.Denies LOC. On ASA and Plavix for h/o CAD s/p cardiac stent. Complains ofLeft sided chest pain s/p fall.States that he got dizzy and fell off ofhis porch ~3 feet onto his AC unit. Reports prior episodes of dizzinesswithout syncope, but denies CP/SOB or any other symptoms prior to fall.States that he was ambulatory after the fall. Denies head trauma. EndorsesL sided chest pain, but denies SOB, DELAROSA, nausea, emesis, abdominal pain,weakness, numbness, vision changes. Has hx of MVP + Cardiac Stents,appendectomy. +daily smoker- reports 1ppd.?CT Head/Neck:No fracture or hemorrhage. No acute osseous injury is evident. Comment:MRI is more sensitive than CT in detecting cord injury, ligament injury,and epidural hematoma. If there is continued clinical concern for any ofthese entities, MRI correlation should be considered if possible.?CT Chest/Abdomen/Pelvis:Left lower lobe pulmonary contusion. Acute fractures of left ribs 7through 10. No acute soft tissue injury is seen involving the abdomen orpelvis. 17 mm low-density focus in the left hepatic lobe.?HPI/CHIEF COMPLAINT: Fall off of porch?BRIEF DESCRIPTION OF INJURIES: L 7-10 rib fractures, left lower lobepulmonary contusion, L knee abrasion?LAST FLUIDS/MEAL: last night?CODE STATUS: Not discussed?ALLERGIESALLERGIESN o Known AllergiesPrescriptions Prior to Admission?(Not in a hospital admission)DATE OF LAST TETANUS: n/a?There is no immunization history on file for this patient.PAST MEDICAL HISTORYPAST MEDICAL HISTORYDiagnosis Date- Heart attack (HCC) ?- High cholesterol ??PAST SURGICAL HISTORYPAST SURGICAL HISTORYProcedure Laterality Date- ANGIOPLASTY HX ? ?? with cardiac stent x1- APPENDECTOMY HX ? ?- TONSILLECTOMY HX ? ??SOCIAL HISTORYSocial History Marital status: Spouse name: Years of education: Number of children:?Social History Main Topics Smoking status: Current Every Day Smoker Packs/day: 1.00 Years: 0.00 Types: Cigarettes Drug use: No?ROS:Is the patient having any pain? Yes LOCATION: L chest wallConstitutional: NegativeEye/Ear/Nose: NegativeRespiratory: NegativeCardiovascular: NegativeGI/Liver/Biliary: NegativeGenitourinary: NegativePsychiatric: NegativeNeurologic: NegativeMusculoskeletal: NegativeIntegument: NegativeEndocrine: NegativeHeme/Lymph: Negative??ObjectivePRIMARY SURVEYAIRWAY: PatentBREATHING: no resp distress on NC- 95%[id number]: PT/DP palpable, Radials palpableDISABILITY: Eye: 4=Spontaneous Verbal: 5=Oriented and Converses Motor: 6=Obeys Commands Total GCS: 15=4 Resp Rate: 10 to 29=4 Syst BP: > than 89=4REVISED TRAUMA SCORE: 12EXPOSE / ENVIRONMENT: Not Applicable PROCEDURES:?SECONDARY SURVEYVITALS: BP 114/79 Pulse 61 Temp 36.8 ?C (98.2 ?F) (Oral) Resp 19 Ht 177.8 cm (5' 10) Wt 83 kg (183 lb) SpO2 96% BMI 26.26 kg/m?NEURO: Alert AND Oriented x 3, GCS 15, Cranial Nerves II-XII Intact, MovesAll Extremities, Strength Symmetrical, No Sensory DeficitsHEENT: Head: No lacerations or abrasions, no bony step offs, midfacestable to palpation, EOMINECK: No midline pain with palpation, No pain with active ROM, Nolacerations/wounds, No JVD, Trachea midlineRESPIRATORY: No abrasions or contusions, No crepitus, Equal Excursion, Lchest wall TTPCARDIOVASCULAR: Heart rate regularABDOMEN: Non-distended, No scars or lacerationsPELVIC/PERINEAL: Pelvis stable to palpationBACK/SPINE: Thoracolumbar spinal column non-tender, No step off ordeformity noted, No external injury notedEXTREMITIES: L knee abrasion RADIOLOGICAL/OTHER TEST DATA:CT H/N/C/A/P?PRIOR TO ARRIVAL: Imaging obtained in [place] prior to arrival?IMAGESCT H/N/C/A/PCT Head/Neck:No fracture or hemorrhage. No acute osseous injury is evident. Comment:MRI is more sensitive than CT in detecting cord injury, ligament injury,and epidural hematoma. If there is continued clinical concern for any ofthese entities, MRI correlation should be considered if possible.?CT Chest/Abdomen/Pelvis:Left lower lobe pulmonary contusion. Acute fractures of left ribs 7through 10. No acute soft tissue injury is seen involving the abdomen orpelvis. 17 mm low-density focus in the left hepatic lobe.?LABS:Most recent labs and imaging results.WBC 10Hgb 13.8PLT 183Cr 1.15Trop < 0.015LFTs WNL??Assessment/PlanDIAGNOSES : L sided rib fractures, pulmonary contusion?TREATMENT/EVALUATIO N PLANS:-Admit SICU?Qhcaq-Vkxtkhjnksa-Aiew control: tylenol, lidocaine patches, tramadol, prn morphine?CV:-Aggw-KZP-Mreajwb ASA/Plavix 07/28 pending stable CXR-will need medicine consult on tx to floor?PULM:-2V CXR in vn-SW-bqeumma-wean supplemental O2 as able-pain control?GI:-cardiac diet?:-strict Is/Os-prn electrolyte replacement?VRG-VQAc-Fdtckfrc on?ID:-stable?Heme:-Monitor CBCD?PPX: SCDs, LVX?ED DISPOSITION: To ICU?FINAL INJURIES: No new injuries were identified after physical examinationand review of final radiological reading(s) of all studies.?Plan of care discussed with Staff SICU Surgeon: Dr. Herrera at 1:13 PM?SENIOR RESIDENT NOTE:?ATTENDING NOTE:?SIGNATURE: Zunilda Holloway MD PATIENT NAME: Janett VallecilloATE: July 27, 2018 : 12:55 PM PAGER/CONTACT #:?Revision HistoryAs aboveDelayed note signingElderly patient with multiple left rib fractures and pulmonary contusionsHigh risk for developing pulmonary complications and respiratory failurerequiring mechanical ventilationAdmit to SICUAggressive pul toiletPain controlSCDRepeat CXR in [facility] provided 35 minutes of critical care services which were necessary dueto above specified injuries and illnesses. This patient has a highprobability of sudden, clinical significant deterioration, which requiredthe highest level of care and preparedness to intervene urgently. Imanaged and supervised life or organ supporting interventions that requirefrequent assessments. This time does not include time devoted to teachingand to any procedure I billed separately.I have personally seen and examined this patient and participated in thekey components of this encounter with the multi-disciplinary ICU team. Idiscussed the management of this case with the resident andreviewed/confirmed their documentation, attached or in separate note. Ipersonally reviewed today's actual images, the associated image reports,and current labs. I supervised the ordering of additional testing,imaging, labs, and/or consultations. The patient and/or family were fullyinformed of the findings and plan of care. They had the opportunity to askquestions and raise any issues of concern, all of which were answered anddealt with by me to their stated satisfaction.The critical care treatment was mainly directed to address the followingissues:(R04.2) Hemoptysis (primary encounter diagnosis)(R74.8) Elevated troponinManagement included sedation, pain control and ventilation assessmentincluding need for ventilator, weaning and/or extubation as indicated.Management of critical care illnesses are edited above by me, includingsystem by system plan and are not only limited to infectious disease andtailoring the antibiotic therapy, nutrition assessment andsupplementation, electrolyte correction and prevention of ICU relatedcomplications using ventilator bundle, sedation holiday and assessment andremoval of lines and tubes where indicated.SIGNATURE: Josiah Herrera MD PATIENT NAME: Janett VallecilloATE: July 28, 2018 : 9:54 AM [facility] ED NOTEon 07-27-2018 ED NOTE HNO ID: [id number] thor: Coco (Rn) BETH Burtervice: Emergency MedicineAuthor Type: Registered NurseType: ED NotesFiled: 07/27/2018 9:33 AMNote Text: Pt placed on laboratory monitor, noninvasive blood pressure cuff andcontinuous pulse oximetry for clinical monitoring [facility] ED NOTE HNO ID: [id number] thor: Gurmeet (Medic) Candace BirminghamService: (none)Author Type: Filling Operator and TechnicianType: ED NotesFiled: 07/27/2018 9:15 AMNote Text:Bed: 10-EDExpected date: 07/27/18Expected time: 9:10 AMMeans of arrival: [facility] [facility] ED PROV NOTEon 07-27-2018 Protein mass conc HNO ID: [id number] thor: Hero Huizarice: Emergency MedicineAuthor Type: PhysicianType: ED Provider NotesFiled: 08/01/2018 7:01 AMNote Text:I performed a history and physical examination of the patient anddiscussed the management with the resident. I reviewed the resident's noteand agree with the documented findings and plan of care.The patient is a 68-year-old male presenting to the emergency departmentas a transfer from [facility] for trauma evaluation. Around 10 PMlast night, the patient fell off of his porch into an air conditioningunit, landing onto his left side. He subsequently sustained four ribfractures and a pulmonary contusion. The fractures involve the leftseventh through 10th ribs.On exam, the patient's vital signs are stable. His respirations aresymmetric and unlabored. SPO2 is 97% on room air. The patient doesappear uncomfortable secondary to pain. Heart is regular rate and rhythm,sinus are auscultated. No murmurs, rubs, or gallops. Lungs are clearauscultation bilaterally. Slightly diminished in the lower lung sommer.The patient has tenderness upon palpation to the left mid to inferiorlateral ribs. No signs of external trauma. No crepitance. Abdomen issoft, nontender, nondistended. No midline pulsatile mass or hernia. NoCVA tenderness. Pelvis is stable. No midline neck or back tenderness topalpation, step-offs, crepitance, or deformities. The patient moves allextremities equally. No focal neuro deficits.The patient is administered analgesia. A trauma consult has been placed.Critical CareI spent a total of 30 minutes of critical care time in the evaluation andmanagement of this patient. This was necessary to treat or preventdeterioration of the following condition(s): Multiple trauma, which thepatient had and/or has a high probability of suddenly developing. Thepatient received Consultation by trauma during the time that critical carewas provided.I discussed the plan of care with the Resident and agreewith the findings documented. Critical care time excludes separatelybilled procedures.Kacy Huizar, DO07/27/18 1056Jagruti Dominguez, DO08/01/18 0701 [facility] Protein mass conc HNO ID: [id number] thor: Hero Iyerice: Emergency MedicineAuthor Type: PhysicianType: ED Provider NotesFiled: 08/01/2018 1:14 AMNote Text: At testation signed by Jagruti Dominguez DO at 08/01/2018 7:00 AMAttending NoteI evaluated the patient and personally participated in the venegas components. Iagree with the resident's findings and plan as documented and have discussedthe case and management of the patient's care with the resident.Signature: Gokul Huizar: 08/01/2018Time: 7:00 AM ED Provider NotePatient Name: Janett Giang: [id number] DATE: 07/27/18HistoryPatient presents with:Rib Injury: the patient arrives via em[facility] from [facility], fell off aporch last night into an air conditioning unit +dizziness, -loc, has leftrib fx 7-10 with left lower lung contusion, on plavix, here for furthereval, a/o x3 on arrival, no distress -mcgg-fec male [facility] in which he struck the left side of hischest against an air conditioning unit resulting in fractures of ribs 7through 10 on the left side with a left-sided lung contusion. On arrivalthe patient is afebrile and hemodynamically stable, reporting 8/10 painbut otherwise in no distress. Reports that he is taking shallow breathssecondary to rib pain, does not feel short of breath. Labs from outsidehospital reveal no significant abnormalities, CT scan of the chestrevealing rib fractures with contusion.PAST MEDICAL HISTORYDiagnosis Date- Heart attack (HCC)- High cholesterolPAST SURGICAL HISTORYProcedure Laterality Date- ANGIOPLASTY HX with cardiac stent x1- APPENDECTOMY HX- TONSILLECTOMY HXNo family history on file.Social HistorySocial History Main Topics- Smoking status: Current Every Day Smoker Packs/day: 1.00 Types: Cigarettes- Smokeless tobacco: Not on file- Alcohol use Not on file Comment: 1-2x/weeks- Drug use: No- Sexual activity: Not on fileALLERGIESNo Known AllergiesReview of SystemsConstitutional: Negative for chills, fatigue and fever.HENT: Negative for congestion, rhinorrhea, sinus pressure and sore throat.Eyes: Negative for photophobia and visual disturbance.Respiratory: Negative for cough, chest tightness, shortness of breath andwheezing. Splinting respirations secondary to rib pain, denies shortness ofbreath.Cardiovascular: Positive for chest pain (sided rib pain secondary tofractures). Negative for palpitations and leg swelling.Gastrointestinal: Negative for abdominal distention, abdominal pain,constipation, diarrhea, nausea and vomiting.Genitourinary: Negative for decreased urine volume, difficulty urinating,dysuria, frequency, hematuria and urgency.Musculoskeletal: Negative for arthralgias, back pain, myalgias and neckpain.Skin: Negative for color change and rash.Neurological: Negative for dizziness, weakness, light-headedness andheadaches.Psychiatric/Beha vioral: Negative for agitation and confusion.Physical ExamBP 134/72 Pulse 82 Temp (Src) 97.5 (Temporal Artery) Resp 18 Ht 5'10 (1.78m) Wt 177 lb 12.8 oz (80.7kg) SpO2 93% BMI 25.51 kg/(m2).Physical ExamConstitutional: He is oriented to person, place, and time. He appearswell-developed and well-nourished. No distress.Elderly, male, sitting up in hospital bed holding folded blanketto side. Grimacing in pain on manipulation of his chest wall butotherwise in no acute distress. Afebrile and hemodynamically stable,answering questions appropriately.HENT:Head: Normocephalic and atraumatic.Right Ear: External ear normal.Left Ear: External ear normal.Nose: Nose normal.Mouth/Throat: Oropharynx is clear and moist. No oropharyngeal exudate.Eyes: Pupils are equal, round, and reactive to light. Conjunctivae and EOMare normal. Right eye exhibits no discharge. Left eye exhibits nodischarge.Neck: Normal range of motion. Neck supple.Cardiovascular: Normal rate, regular rhythm, normal heart sounds andintact distal pulses.No murmur heard.Pulses: Radial pulses are 2+ on the right side, and 2+ on the left side. Dorsalis pedis pulses are 2+ on the right side, and 2+ on the leftside.Pulmonary/Chest: Effort normal and breath sounds normal. No respiratorydistress. He has no wheezes. He has no rales. He exhibits tenderness (leftlateral chest wall tenderness secondary to rib fractures) and bonytenderness. He exhibits no crepitus, no edema, no deformity, no swellingand no retraction.Abdominal: Soft. Bowel sounds are normal. He exhibits no distension. Thereis no tenderness. There is no rebound and no guarding.Musculoskeletal: Normal range of motion. He exhibits no edema ortenderness.Lymphadenopathy: He has no cervical adenopathy.Neurological: He is alert and oriented to person, place, and time. He hasnormal strength. No cranial nerve deficit or sensory deficit. Gait normal.Skin: Skin is warm and dry. Capillary refill takes less than 2 seconds. Heis not diaphoretic. No erythema.Psychiatric: He has a normal mood and affect. His behavior is normal.Thought content normal.Nursing note and vitals reviewed.Diagnostic TestingProceduresED Course / Clinical ImpressionED Course as of Aug 01 114Kassidy Eli's DocumentationSun Jul 27, [id number] Trauma resident aware of patient arrival.Clinical Impressions as of Aug 01ontusion of left lung, initial encounterClosed fracture of multiple ribs of left side, initial encounterMDM / Disposition / PlanGeorge Yevgeniy is a 68-year-old [facility] resulting in fractures ofhis left seventh through 10th ribs and a lung contusion.He is afebrile and hemodynamically stable on arrival to the department,complaining of 8/10 following physical exam. Patient was treated withmorphine in the emergency department. Trauma team was consult itsecondary to patient's injuries and referral on transfer. She reports amechanical fall in which she leaned over and lost balance, falling into anair conditioning unitHis [place]. [facility] no significant lababnormalities and CT chest reveals fractures of ribs 7 through 10 withunderlying lung contusion. Trauma team to admit patient for furtherobservation and management of his multiple rib fractures, admitted to theSICU in stable condition.EKG ordered in the department reveals normal sinus rhythm with anincomplete right bundle branch block and age undetermined inferiorinfarct?inferior infarct is new but otherwise EKG is unchanged. No Inesof acute ischemia or impending infarct.The patient was ADMITTED TO: ICU SICU.Condition at time of disposition: stableSIGNATURE: Otoniel Iyer, DO08/01/18 0114Georcruz Dominguez, DO08/01/18 0700 [facility] EKGon 07-27-2018 Protein mass conc NAME : JANETT VUONG PID : [id number] : 1950 Gender : MaleRace : CaucasianORD : Procedure Date : Jul 27 2018 09:55Edit Date : Jul 27 2018 17:32 Diagnosis:NORMAL SINUS RHYTHMPOSSIBLE LEFT ATRIAL ENLARGEMENTINCOMPLETE RIGHT BUNDLE BRANCH BLOCKINFERIOR INFARCT , AGE UNDETERMINEDABNORMAL ECGWHEN COMPARED WITH ECG OF 15-MAR-2004 05:24,INFERIOR INFARCT IS NOW PRESENTConfirmed by DO Dominguez Georgia ([id number]) on 07/27/2018 5:32:20 PM Ventricular Rate : 71 BPMAtrial Rate : 71 BPMP-R Interval : 142 msQRS Duration : 96 msQ-T Interval : 388 msQTC Calculation(Bezet) : 421 msP [place] : 72 degreesR [place] : 9 degreesT [place] : 35 degrees Test Reason : Location : 4 : [place] [address] Overread By : DO Dominguez GeorgiaEditted By : DO Dominguez GeorgiaReferred By : ,Acquired by : Renetta Cash [facility] HISTORY PHYSICALon 8 HISTORY PHYSICAL HNO ID: [id number] thor: Zunilda (Sarah) FernandosService: TraumaAuthor Type: ResidentType: HANDPFiled: 07/27/2018 3:00 PMNote Text: At testation signed by Alondra Hodge at 07/28/2018 2:12 PMAttending NoteI evaluated the patient and personally participated in the venegas components. Iagree with the resident's findings and plan as documented and have discussedthe case and management of the patient's care with the resident.Signature: Alondra Hodge, MDDate: 07/7018Time: 2:11 PM TRAUM A HANDP CCHSARRIVAL DATE: 07/27/2018ARRIVAL TIME: 0915CATEGORY: Level 3INJURY DATE: 07/26/18INJURY TIME: eveningSubjectiveThiandrei is a 68 year old White male- Transfer from [place]. GCS at Scene was15. Patient presents s/p fall from porch onto AC unit yesterday evening.Denies LOC. On ASA and Plavix for h/o CAD s/p cardiac stent. Complains ofLeft sided chest pain s/p fall.States that he got dizzy and fell off ofhis porch ~3 feet onto his AC unit. Reports prior episodes of dizzinesswithout syncope, but denies CP/SOB or any other symptoms prior to fall.States that he was ambulatory after the fall. Denies head trauma. EndorsesL sided chest pain, but denies SOB, DELAROSA, nausea, emesis, abdominal pain,weakness, numbness, vision changes. Has hx of MVP + Cardiac Stents,appendectomy. +daily smoker- reports 1ppd.CT Head/Neck:No fracture or hemorrhage. No acute osseous injury is evident. Comment:MRI is more sensitive than CT in detecting cord injury, ligament injury,and epidural hematoma. If there is continued clinical concern for any ofthese entities, MRI correlation should be considered if possible.CT Chest/Abdomen/Pelvis:Left lower lobe pulmonary contusion. Acute fractures of left ribs 7through 10. No acute soft tissue injury is seen involving the abdomen orpelvis. 17 mm low-density focus in the left hepatic lobe.HPI/CHIEF COMPLAINT: Fall off of porchBRIEF DESCRIPTION OF INJURIES: L 7-10 rib fractures, left lower lobepulmonary contusion, L knee abrasionLAST FLUIDS/MEAL: last nightCODE STATUS: Not discussedALLERGIESNo Known Allergies(Not in a hospital admission)DATE OF LAST TETANUS: n/aThere is no immunization history on file for this patient.PAST MEDICAL HISTORYDiagnosis Date- Heart attack (HCC)- High cholesterolPAST SURGICAL HISTORYProcedure Laterality Date- ANGIOPLASTY HX with cardiac stent x1- APPENDECTOMY HX- TONSILLECTOMY HXSocial History Marital status: Spouse name: Years of education: Number of children:Social History Main Topics Smoking status: Current Every Day Smoker Packs/day: 1.00 Years: 0.00 Types: Cigarettes Drug use: NoROS:Is the patient having any pain? Yes LOCATION: L chest wallConstitutional: NegativeEye/Ear/Nose: NegativeRespiratory: NegativeCardiovascular: NegativeGI/Liver/Biliary: NegativeGenitourinary: NegativePsychiatric: NegativeNeurologic: NegativeMusculoskeletal: NegativeIntegument: NegativeEndocrine: NegativeHeme/Lymph: NegativeObjectivePRIMARY SURVEYAIRWAY: PatentBREATHING: no resp distress on NC- 95%[id number]: PT/DP palpable, Radials palpableDISABILITY: Eye: 4=Spontaneous Verbal: 5=Oriented and Converses Motor: 6=Obeys Commands Total GCS: 15=4 Resp Rate: 10 to 29=4 Syst BP: > than 89=4REVISED TRAUMA SCORE: 12EXPOSE / ENVIRONMENT: Not Applicable PROCEDURES:SECONDARY SURVEYVITALS: BP 114/79 Pulse 61 Temp 36.8 ?C (98.2 ?F) (Oral) Resp 19 Ht 177.8 cm (5' 10) Wt 83 kg (183 lb) SpO2 96% BMI 26.26 kg/m?NEURO: Alert AND Oriented x 3, GCS 15, Cranial Nerves II-XII Intact, MovesAll Extremities, Strength Symmetrical, No Sensory DeficitsHEENT: Head: No lacerations or abrasions, no bony step offs, midfacestable to palpation, EOMINECK: No midline pain with palpation, No pain with active ROM, Nolacerations/wounds, No JVD, Trachea midlineRESPIRATORY: No abrasions or contusions, No crepitus, Equal Excursion, Lchest wall TTPCARDIOVASCULAR: Heart rate regularABDOMEN: Non-distended, No scars or lacerationsPELVIC/PERINEAL: Pelvis stable to palpationBACK/SPINE: Thoracolumbar spinal column non-tender, No step off ordeformity noted, No external injury notedEXTREMITIES: L knee abrasion RADIOLOGICAL/OTHER TEST DATA:CT H/N/C/A/PPRIOR TO ARRIVAL: Imaging obtained in [place] prior to arrivalIMAGESCT H/N/C/A/PCT Head/Neck:No fracture or hemorrhage. No acute osseous injury is evident. Comment:MRI is more sensitive than CT in detecting cord injury, ligament injury,and epidural hematoma. If there is continued clinical concern for any ofthese entities, MRI correlation should be considered if possible.CT Chest/Abdomen/Pelvis:Left lower lobe pulmonary contusion. Acute fractures of left ribs 7through 10. No acute soft tissue injury is seen involving the abdomen orpelvis. 17 mm low-density focus in the left hepatic lobe.LABS:Most recent labs and imaging results.WBC 10Hgb 13.8PLT 183Cr 1.15Trop < 0.015LFTs WNLAssessment/PlanDIAGNOSES: L sided rib fractures, pulmonary contusionTREATMENT/EVALUATION PLANS:-Admit WJNOIxfao-Qzbcxziitfd-Ksfz control: tylenol, lidocaine patches, tramadol, prn morphineCV:-Fvgy-LZB-qyej restart ASA/Plavix 07/28 pending stable CXR-will need medicine consult on tx to floorPULM:-2V CXR in sd-ZW-gzoecsb-wean supplemental O2 as able-pain controlGI:-cardiac dietGU:-strict Is/Os-prn electrolyte ihalaanvybqIKB-LMKz-Znqgypssl nID:-stableHeme:-Monitor CBCDPPX: SCDs, LVXED DISPOSITION: To ICUFINAL INJURIES: No new injuries were identified after physical examinationand review of final radiological reading(s) of all studies.Plan of care discussed with Staff Trauma Surgeon: Dr. Hodge at (time)1:04 PMSENIOR RESIDENT NOTE:ATTENDING NOTE:SIGNATURE: Zunilda Holloway MD PATIENT NAME: Janett VallecilloATE: July 27, 2018 : 12:55 PM PAGER/CONTACT #: Normal [facility] MRSA Screenon 07-27-2018 Methicillin resistant Staphylococcus aureus (MRSA) DNA [Presence] in Unspecified specimen by KIT with probe detection Test performed at [facility] No MRSA detected. Normal [facility] Comment on above: Performed By: #### C BCD1 ####[facility] [place] [address] Office Visiton 06-27-2017 Documentation of current medications (procedure) Done Invalid Interpretation Code [facility] Work Phone: [phone] Fall risk assessment Fall risk assessment [facility] Work Phone: [phone] Protein mass conc Done [facility] Work Phone: [phone] Office Visiton 06-26-2016 Protein mass conc yes [facility] Work Phone: [phone] Protein mass conc Done [facility] Work Phone: [phone] Smoking cessation education (procedure) yes Invalid Interpretation Code [facility] Work Phone: [phone] Tobacco smoking status NHIS Current every day smoker [facility] Work Phone: [phone] Tobacco use CPHS Current every day smoker Invali d Interpretation Code [facility] Work Phone: [phone] Replaced Document: [facility] E CG Observationson 12-20-2015 BUN (urea nitrogen) Sinus Rhythm -Incomp lete right bundle branch block. ABNORMAL Invalid Interpretation Code [facility] Work Phone: [phone] EKG QRS axis -21 deg [facility] Work Phone: [phone] GE use only - for LinkLogic import when terms are not otherwise specified 393 ms Invalid Interpretation Code [facility] Work Phone: [phone] P [place] 53 deg [facility] Work Phone: [phone] P wave axis, electrocardiogram 53 deg Invalid Interpretation Code [facility] Work Phone: [phone] [place] Interval 132 ms [facility] Work Phone: KS interval, electrocardiogram 132 ms Invalid Interpretation Code [facility] Work Phone: [phone] Pulse (Heart Rate) 63 /min Invalid Interpretation Code [facility] Work Phone: [phone] QRS axis, electrocardiogram -21 deg Invalid Interpretation Code [facility] Work Phone: [phone] QRS Duration 102 ms [facility] Work Phone: [phone] QRS duration, electrocardiogram 102 ms Invalid Interpretation Code [facility] Work Phone: [phone] QT Interval new path ms [facility] Work Phone: [phone] QT interval, electrocardiogram new path ms Invalid Interpretation Code [facility] Work Phone: [phone] QTc Reddy 393 ms [facility] Work Phone: [phone] T [place] 36 deg [facility] Work Phone: [phone] T wave axis, electrocardiogram 36 deg Invalid Interpretation Code [facility] Work Phone: [phone] Urea nitrogen mass conc Sinus Rhythm -Incomplete right bundle branch block. ABNORMAL [facility] 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 Work Phone: [phone] Alkaline phosphatase (ALP) 71 U/L Invalid Interpretation Code [facility] Work Phone: [phone] ALP enzyme act/vol (Bld) 71 U/L [facility] Work Phone: [phone] ALT enzyme act/vol 26 U/L [facility] Work Phone: [phone] AST enzyme act/vol 18 U/L [facility] Work Phone: [phone] Bilirubin mass conc 0.80 mg/dL [facility] Work Phone: [phone] Bilirubin.direct mass conc 0.18 mg/dL [facility] Work Phone: [phone] Cholesterol in HDL mass conc 50 mg/dL [facility] Work Phone: [phone] Cholesterol in LDL mass conc 89 mg/dL [facility] Work Phone: [phone] Cholesterol mass conc 153 mg/dL [facility] Work Phone: [phone] Globulin 3.2 g/dL Invalid Interpretation Code [facility] Work Phone: [phone] Globulin mass conc (S) 3.2 g/dL [facility] Work Phone: [phone] Hemoglobin A1c/Hemoglobin.total mass fraction (Bld) 6.9 % High [facility] Work Phone: [phone] Lipoprotein.pre-beta mass conc 14 mg/dL [facility] Work Phone: [phone] Protein mass conc 6.8 g/dL [facility] Work Phone: [phone] Triglyceride mass conc 71 mg/dL [facility] Work Phone: [phone] Office Visit: [facility] 12-14-19 15 cardiac risk group C [facility] Work Phone: [phone] General cardiovascular disease 10Y risk [#] [place].D'Agostino N/A [facility] Work Phone: [phone] Tobacco smoking status NHIS Former [facility] Work Phone: [phone] Clinical 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-04-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 Calcium mass conc 9.3 mg/dL [facility] Work Phone: [phone] Chloride molar conc 104 mmol/L [facility] Work Phone: [phone] CO2 27.0 mmol/L Invalid Interpretation Code [facility] Work Phone: [phone] CO2 ppres (BldV) 27.0 mmol/L [facility] Work Phone: [phone] Creatinine mass conc 1.1 mg/dL [facility] Work Phone: [phone] Potassium molar conc 4.1 mmol/L [facility] Work Phone: [phone] Sodium molar conc 136 mmol/L [facility] Work Phone: [phone] Urea nitrogen mass conc 21 mg/dL [facility] Work Phone: [phone] Replaced Document: Jeanniemark Bess CG Observationson 08-04-2013 Pulse (Heart Rate) 393 ms Invalid Interpretation Code [facility] Work Phone: Vital Signs Date Time Vital Sign Value Performing Clinician Alo betancourt 05-06-2025 11:30-0400 Body height 177.[address] Nafi De La Vega MD Work Phone: [facility] 05-06-2025 11:30-0400 Body mass index (BMI) [Ratio] 24 kg/m2 Dr. Naif De La Vega MD Work Phone: [facility] 05-06-2025 11:30-0400 Body weight 76.[address] Naif De La Vega MD Work Phone: [facility] 05-06-2025 11:30-0400 Diastolic blood pressure 72 mm[Hg] Dr. Naif De La Vega MD Work Phone: [facility] 05-06-2025 11:30-0400 Heart rate 62 /min Dr. Naif De La Vega MD Work Phone: [facility] 05-06-2025 11:30-0400 Respiratory rate 18 /min Dr. Naif De La Vega MD Work Phone: [facility] 05-06-2025 11:30-0400 Systolic blood pressure 115 mm[Hg] Dr. Naif De La Vega MD Work Phone: [facility] 08-08-2023 14:49-0400 Body temperature 97.6 [degF] Dr. Naif De La Vega Work Phone: [facility] 08-08-2023 14:49-0400 Diastolic blood pressure 79 mm[Hg] Dr. Naif De La Vega Work Phone: [facility] 08-08-2023 14:49-0400 Heart rate 66 /min Dr. Naif De La Vega Work Phone: [facility] 08-08-2023 14:49-0400 Respiratory rate 16 /min Dr. Naif De La Vega Work Phone: [facility] 08-08-2023 14:49-0400 SaO2% (BldA) [Mass fraction] 96 % Dr. Naif De La Vega Work Phone: [facility] 08-08-2023 14:49-0400 Systolic blood pressure 134 mm[Hg] Dr. Naif De La Vega Work Phone: [facility] 08-07-2023 18:20-0400 Body height 177.[address] Naif De La Vega Work Phone: [facility] 08-07-2023 18:20-0400 Body mass index (BMI) [Ratio] 24.3 kg/m2 Dr. Naif De La Vega Work Phone: [facility] 08-07-2023 18:20-0400 Body weight [address] Naif De La Vega Work Phone: [facility] 07-18-2023 10:58-0400 Body temperature 98.4 [degF] Dr. Naif De La Vega Work Phone: [facility] 07-18-2023 10:58-0400 Body weight 78.[address] Naif De La Vega Work Phone: [facility] 07-18-2023 10:58-0400 Diastolic blood pressure 85 mm[Hg] Dr. Naif De La Vega Work Phone: [facility] 07-18-2023 10:58-0400 Heart rate 65 /min Dr. Naif De La Vega Work Phone: [facility] 07-18-2023 10:58-0400 Respiratory rate 16 /min Dr. Naif De La Vega Work Phone: [facility] 07-18-2023 10:58-0400 SaO2% (BldA) [Mass fraction] 99 % Dr. Naif De La Vega Work Phone: [facility] 07-18-2023 10:58-0400 Systolic blood pressure 139 mm[Hg] Dr. Naif De La Vega Work Phone: [facility] 05-09-2023 09:39-0400 Body weight 80.[address] Naif De La Vega Work Phone: [facility] 05-09-2023 09:39-0400 Diastolic blood pressure 80 mm[Hg] Dr. Naif De La Vega Work Phone: [facility] 05-09-2023 09:39-0400 Heart rate 71 /min Dr. Naif De La Vega Work Phone: [facility] 05-09-2023 09:39-0400 Respiratory rate 16 /min Dr. Naif De La Vega Work Phone: [facility] 05-09-2023 09:39-0400 Systolic blood pressure 141 mm[Hg] Dr. Nafi De La Vega Work Phone: [facility] 05-09-2023 08:41-0400 Body height 177.[address] Naif De La Vega Work Phone: [facility] 10-11-2022 07:36-0500 Body height 177.8 cm Kelvin Dupont MD Work Phone: [facility] 10-11-2022 07:36-0500 Body temperature 98.6 [degF] Kelvin Dupont MD Work Phone: [facility] 10-11-2022 07:36-0500 Body weight 82.83 kg Kelvin Dupont MD Work Phone: [facility] 10-11-2022 07:36-0500 Diastolic blood pressure 70 mm[Hg] Kelvin Dupont MD Work Phone: [facility] 10-11-2022 07:36-0500 Heart rate 84 /min Kelvin Dupont MD Work Phone: [facility] 10-11-2022 07:36-0500 SaO2% (BldA) [Mass fraction] 100 % Kelvin Dupont MD Work Phone: [facility] 10-11-2022 07:36-0500 Systolic blood pressure 136 mm[Hg] Kelvin Dupont MD Work Phone: [facility] 01-26-2022 09:49-0400 Body height 177.[address] Naif De La Vega Work Phone: [facility] Work Phone: 01-26-2022 09:49-0400 Body mass index (BMI) [Ratio] 25.9 kg/m2 Dr. Naif De La Vega Work Phone: [facility] Work Phone: 01-26-2022 09:49-0400 Body weight 82.[address] Naif De La Vega Work Phone: [facility] Work Phone: 01-26-2022 09:49-0400 Diastolic blood pressure 81 mm[Hg] Dr. Naif De La Vega Work Phone: [facility] Work Phone: 01-26-2022 09:49-0400 Heart rate 74 /min Dr. Naif De La Vega Work Phone: [facility] Work Phone: 01-26-2022 09:49-0400 Respiratory rate 18 /min Dr. Naif De La Vega Work Phone: [facility] Work Phone: 01-26-2022 09:49-0400 SaO2% (BldA) [Mass fraction] 99 % Dr. Naif De La Vega Work Phone: [facility] Work Phone: 01-26-2022 09:49-0400 Systolic blood pressure 143 mm[Hg] Dr. Naif De La Vega Work Phone: [facility] Work Phone: 06-27-2017 13:02-0400 BMI (Body Mass Index) 25.6 kg/m2 [facility] Work Phone: 06-27-2017 13:02-0400 BP Diastolic 70 mm[Hg] [facility] Work Phone: 06-27-2017 13:02-0400 BP Systolic 140 mm[Hg] Binta Velazquez [facility] Work Phone: 06-27-2017 13:02-0400 Height 180.34 cm Binta Velazquez [facility] Work Phone: 06-27-2017 13:02-0400 Pulse (Heart Rate) 64 /min Binta Velazquez [facility] Work Phone: 06-27-2017 13:02-0400 Respiratory Rate 20 /min Binta Velazquez [facility] Work Phone: 06-27-2017 13:02-0400 Weight 83.28 kg Binta Velazquez [facility] Work Phone: 06-26-2016 14:25-0400 BMI (Body Mass Index) 26.32 kg/m2 [facility] Work Phone: 06-26-2016 14:25-0400 BP Diastolic 60 mm[Hg] Alice Quintero RN [facility] Work Phone: 06-26-2016 14:25-0400 BP Systolic 110 mm[Hg] Alice Quintero RN [facility] Work Phone: 06-26-2016 14:25-0400 BSA (Body Surface Area) 2.06 m2 Alice Quintero RN [facility] Work Phone: 06-26-2016 14:25-0400 Pulse (Heart Rate) 66 /min Alice Quintero RN [facility] Work Phone: 06-26-2016 14:25-0400 Respiratory Rate 20 /min Alice Quintero RN [facility] Work Phone: 06-26-2016 14:25-0400 Weight 85.59 kg Alice Quintero RN [facility] Work Phone: 12-20-2015 14:15-0500 Heart rate 63 /min Alice Quintero RN [facility] Work Phone: 08-04-2013 08:33-0400 Heart rate 393 ms Alice Quintero RN [facility] Work Phone: 07-18-2012 14:39-0400 Height 180.34 cm Alice Quintero RN [facility] Work Phone: Encounters Encounter Date Encounter Type Care Provider Facility Start: 05-06-2025 End: 05-06-2025 Patient encounter procedure Juliet Enrique PA -[facility] Work Phone: Start: 05-06-2025 End: 05-06-[address] Naif De La Vega MD Work Phone: -[facility] Start: 03-11-2025 End: 03-11-[address] Naif De La Vega MD Work Phone: [facility] Work Phone: Start: 03-11-2025 End: 03-11-[address] Naif De La Vega MD -Laboratory Work Phone: Start: 03-11-2025 End: 03-11-2025 ambulatory Naif De La Vega Facility:[facility] Start: 01-07-2025 ambulatory Naif De La Vega Facilit y:[facility] Start: 11-06-2024 End: 11-06-2024 ambulatory Juliet MAHAJAN Facility:[facility] Start: 11-06-2024 End: 11-06-2024 ambulatory Naif De La Vega Facility:[facility] Start: 06-23-2024 ambulatory Naif De La Vega Facilit y:[facility] Start: 06-23-2024 End: 06-23-2024 ambulatory Naif De La Vega Facility:[facility] Start: 05-26-2024 ambulatory Juliet MAHAJAN Facility:[facility] Start: 05-26-2024 End: 05-26-2024 ambulatory Juliet MAHAJAN Facility:[facility] Start: 12-23-2023 End: 12-23-[address] Naif De La Vega Work Phone: [facility] Work Phone: Start: 12-23-2023 End: 12-23-[address] [facility] Start: 12-20-2023 Non-patient / Non-visit Dr. Janice De La Vega Work Phone: [facility] Start: 12-20-2023 End: 12-20-[address] Naif De La Vega Work Phone: [facility] Work Phone: Start: 12-20-2023 End: 12-20-[address] [facility] Start: 10-09-2023 End: 10-09-[address] Naif De La Vega Work Phone: [facility] Work Phone: Start: 10-09-2023 End: 10-09-[address] [facility] Start: 08-07-2023 End: 08-08-2023 Evaluation and management of inpatient Dr. Naif De La Vega Work Phone: [facility] Work Phone: Start: 08-07-2023 End: 08-08-[address] Naif De La Vega Work Phone: [facility] Work Phone: Start: 07-18-2023 End: 07-18-[address] Naif De La Vega Work Phone: [facility] Work Phone: Start: 06-27-2023 Non-patient / Non-visit Dr. Janice De La Vega Work Phone: [facility] Start: 06-27-2023 End: 06-27-[address] Naif De La Vega Work Phone: [facility] Work Phone: Start: 06-27-2023 End: 06-27-[address] Naif De La Vega Work Phone: [facility] Work Phone: Start: 06-11-2023 End: 06-11-[address] Naif De La Vega Work Phone: [facility] Work Phone: Start: 06-11-2023 End: 06-11-[address] Naif De La Vega Work Phone: [facility] Work Phone: Start: 05-09-2023 End: 05-09-[address] Naif De La Vega Work Phone: [facility] Work Phone: Start: 03-05-2023 End: 03-05-[address] Naif De La Vega Work Phone: [facility] Work Phone: Start: 10-11-2022 End: 10-11-2022 ambulatory KELVIN DUPONT Facility:[facility] Start: 10-11-2022 End: 10-11-2022 Patient encounter procedure Kelvin Dupont MD Work Phone: General Surgery Comment on above: External hemorrhoid, thrombosed (Primary Dx) Start: 10-02-2022 End: 10-02-2022 ambulatory [facility] Work Phone: Start: 10-02-2022 End: 10-02-2022 Patient encounter procedure [facility] Start: 05-09-2022 Non-patient / Non-visit Dr. Janice De La Vega Work Phone: [facility] Start: 05-09-2022 End: 05-09-[address] Naif De La Vega Work Phone: [facility] Start: 04-03-2022 End: 04-03-[address] Naif De La Vega Work Phone: [facility] Start: 01-26-2022 End: 01-26-[address] Naif De La Vega Work Phone: [facility] Start: 07-27-2018 End: 07-30-2018 Evaluation and management of inpatient [facility] Facility:[facility] Procedures Date Procedure Procedure Detail Performing Clinician Start: 08-07-2023 Cysto,Transurethral Resection Prostate (Not Applicable) Dr. Naif De La Vega Work Phone: Start: 06-27-2017 End: 06-27-2017 Follow Up Appt 6 months Astrid Guardado Start: 06-27-2017 End: 06-27-2017 R Xavi Brody MD Start: 06-26-2016 End: 06-26-2016 HUSSEIN Brody MD Start: 06-26-2016 End: 06-26-2016 Follow Up Appt 1 year Xavi Brody MD Start: 12-20-2015 End: 06-27-2017 *Hepatic Function Panel Juliet paul PA-C Work Phone: Start: 12-20-2015 End: 12-20-2015 RECYCLING DIRECTOR Juliet Enrique PA-C Work Phone: Start: 12-20-2015 End: 12-20-2015 Electrocardiogram, complete Juliet Enrique PA-C Work Phone: Start: 12-20-2015 End: 12-20-2015 Follow Up Appt 6 months Juliet paul PA-C Work Phone: Start: 12-20-2015 End: 06-27-2017 Lipid panel [AGGREGATE] Juliet paul PA-C Work Phone: Start: 06-21-2015 End: 06-22-2015 Documentation of current medications Xavi Brody MD Start: 06-21-2015 End: 06-21-2015 Follow Up Appt 6 months Astrid Guardado Start: 06-21-2015 End: 06-21-2015 ALEXANDRE Brody MD Start: 06-21-2015 End: 06-22-2015 Smoking cessation education Xavi Brody MD Start: 12-14-2014 End: 12-14-2014 RECYCLING DIRECTOR Juliet Enrique PA-C Work Phone: Start: 12-14-2014 End: 12-15-2014 Documentation of current medications Juliet Enrique PA-C Work Phone: Start: 12-14-2014 End: 12-14-2014 Electrocardiogram, complete Juliet Enrique PA-C Work Phone: Start: 12-14-2014 End: 12-14-2014 Follow Up Appt 6 months Juliet paul PA-C Work Phone: Start: 12-14-2014 End: 12-15-2014 Smoking cessation education Juliet Enrique PA-C Work Phone: Start: 06-15-2014 End: 06-15-2014 Follow Up Appt 6 months Astrid Guardado Start: 06-15-2014 End: 06-15-2014 ALEXANDRE Brody MD Start: 03-04-2014 End: 03-04-2014 Blaire Brody MD Start: 03-04-2014 End: 03-04-2014 HUSSEIN Brody MD Start: 03-04-2014 End: 03-04-2014 Follow Up Appt 3 months Astrid Guardado Start: 08-04-2013 End: 08-04-2013 RECYCLING DIRECTOR Juliet Enrique PA-C Work Phone: Start: 08-04-2013 End: 08-04-2013 Electrocardiogram, complete Juliet Enrique PA-C Work Phone: Start: 08-04-2013 End: 08-04-2013 Follow Up Appt 6 months Juliet paul PA-C Work Phone: Start: 02-10-2013 End: 02-10-2013 Follow Up Appt 6 months Astrid Guardado Start: 02-10-2013 End: 02-10-2013 MMM Xavi Brody MD Start: 11-21-2012 End: 02-10-2013 *Hepatic Function Panel Astrid Guardado Start: 11-21-2012 End: 02-10-2013 Lipid panel [AGGREGATE] Astrid Guardado Start: 07-18-2012 End: 07-18-2012 Follow Up Appt 6 months Astrid Guardado Start: 03-14-2004 History of placement of stent for coronary artery disease History of coronary artery stent placement Juliet MAHAJAN Comment on above: CYN-LPSK-KGj in 1994 ; PCI-BMS to Mid LAD w/ 3.0 x 28 mm Express Stent 03/14/2004 Plan of Treatment Date Care Activity Detail Author Start: 08-08-2023 Application of intermittent pneumatic compression device [facility] Start: 08-08-2023 Patient discharge [facility] Start: 08-08-2023 Removal of urinary catheter [facility] Start: 08-07-2023 Following clinical pathway protocol [facility] Start: 08-07-2023 Anesthesia transurethral resection of prostate ANESTH REMOVAL OF PROSTATE [facility] Start: 08-07-2023 Cysto calibration dilat urtl strix/stenosis CYSTOSCOPY AND TREATMENT [facility] Start: 08-07-2023 Trurl rescj residual/regrowth obstr prstate tiss REMOVE PROSTATE REGROWTH [facility] Start: 08-07-2023 Assessment of risk of venous thromboembolism [facility] Start: 08-07-2023 Deep breathing and coughing exercises [facility] Start: 08-07-2023 Incentive spirometry [facility] Start: 08-07-2023 Irrigation of urinary bladder [facility] Start: 08-07-2023 Measuring intake and output [facility] Start: 08-07-2023 Oxygen therapy [facility] Start: 08-07-2023 Patient education [facility] Start: 08-07-2023 Provision of activity privileges [facility] Start: 08-07-2023 Taking patient vital signs [facility] Start: 08-07-2023 Vital signs measurements [facility] Start: 08-07-2023 End: 08-07-2023 [facility] Start: 08-07-2023 Admission procedure [facility] Start: 06-27-2022 LIPID SCREEN LIPID SCREEN [facility] Start: 10-21-2021 ADVANCE DIRECTIVE DISCUSSION ADVANCE DIRECTIVE DISCUSSION [facility] Start: 10-21-2021 DEPRESSION ASSESSMENT DEPRESSION ASSESSMENT [facility] Start: 07-30-2021 DIABETES SCREEN DIABETES SCREEN [facility] Start: 12-25-2017 End: 12-25-2017 Appointment Appointment [facility] [employer] [facility] Work Phone: Start: 06-27-2017 End: 06-27-2017 Appointment Appointment [facility] [employer] [facility] Work Phone: Start: 06-27-2017 End: 06-27-2017 *Hepatic Function Panel *Hepatic Function Panel [facility] [employer] Phone: Start: 06-27-2017 End: 06-27-2017 Follow Up Appt 6 months Follow Up Appt 6 months [facility] [employer] Work Phone: Start: 06-27-2017 End: 06-27-2017 J[facility] Mara [place] [email or web address] Phone: Start: 06-27-2017 End: 06-27-2017 Lipid panel [AGGREGATE] *Lipid Profile CC PCP [facility] Work Phone: Start: 06-26-2016 End: 06-26-2016 RECYCLING DIRECTOR RECYCLING DIRECTOR [facility] Work Phone: Start: 06-26-2016 End: 06-26-2016 Follow Up Appt 1 year Follow Up Appt 1 year [facility] Work Phone: Start: 12-20-2015 End: 06-27-2017 *Hepatic Function Panel *Hepatic Function Panel [facility] Work Phone: Start: 12-20-2015 End: 12-20-2015 RECYCLING DIRECTOR RECYCLING DIRECTOR [facility] Work Phone: Start: 12-20-2015 End: 12-20-2015 Electrocardiogram, complete EKG (In office) [facility] Work Phone: Start: 12-20-2015 End: 12-20-2015 Follow Up Appt 6 months Follow Up Appt 6 months [facility] Work Phone: Start: 12-20-2015 End: 06-27-2017 Lipid panel [AGGREGATE] *Lipid Profile CC PCP [facility] Work Phone: Start: 06-21-2015 End: 06-21-2015 Follow Up Appt 6 months Follow Up Appt 6 months [facility] Work Phone: Start: 06-21-2015 End: 06-21-2015 MMM MMM [facility] Work Phone: Start: 12-14-2014 End: 12-14-2014 RECYCLING DIRECTOR RECYCLING DIRECTOR [facility] Work Phone: Start: 12-14-2014 End: 12-14-2014 Electrocardiogram, complete EKG (In office) [facility] Work Phone: Start: 12-14-2014 End: 12-14-2014 Follow Up Appt 6 months Follow Up Appt 6 months [facility] Work Phone: Start: 06-15-2014 End: 06-15-2014 Follow Up Appt 6 months Follow Up Appt 6 months [facility] Work Phone: Start: 06-15-2014 End: 06-15-2014 MMM MMM [facility] Work Phone: Start: 03-04-2014 End: 03-04-2014 RECYCLING DIRECTOR RECYCLING DIRECTOR [facility] Work Phone: Start: 03-04-2014 End: 03-04-2014 Follow Up Appt 3 months Follow Up Appt 3 months [facility] Work Phone: Start: 08-04-2013 End: 08-04-2013 RECYCLING DIRECTOR RECYCLING DIRECTOR [facility] Work Phone: Start: 08-04-2013 End: 08-04-2013 Electrocardiogram, complete EKG (In office) [facility] Work Phone: Start: 08-04-2013 End: 08-04-2013 Follow Up Appt 6 months Follow Up Appt 6 months [facility] Work Phone: Start: 02-10-2013 End: 02-10-2013 Follow Up Appt 6 months Follow Up Appt 6 months [facility] Work Phone: Start: 02-10-2013 End: 02-10-2013 MMM MMM [facility] Work Phone: Start: 11-21-2012 End: 02-10-2013 *Hepatic Function Panel *Hepatic Function Panel [facility] Work Phone: Start: 11-21-2012 End: 02-10-2013 Lipid panel [AGGREGATE] *Lipid Profile [facility] Work Phone: Start: 07-18-2012 End: 07-18-2012 Follow Up Appt 6 months Follow Up Appt 6 months [facility] Work Phone: Start: 2002 SHINGRIX VACCINE (1 of 2) SHINGRIX VACCINE (1 of 2) [facility] Start: 1997 COLOGUARD (FIT-DNA) COLOGUARD (FIT-DNA) [facility] Start: 1997 Colonoscopy COLONOSCOPY [facility] Start: 1997 COLORECTAL CANCER SCREENING COLORECTAL CANCER SCREENING [facility] Start: [address] COLONOGRAPHY [facility] Start: 1997 FECAL OCCULT BLOOD FECAL OCCULT BLOOD [facility] Start: 1997 SIGMOIDOSCOPY SIGMOIDOSCOPY [facility] Start: 1971 Urine microalbumin profile DTAP,TDAP,TD (1 - Tdap) [facility] Start: 1970 HEPATITIS C SCREENING HEPATITIS C SCREENING [facility] Start: 1958 PNEUMOCOCCAL: 65+ (1 - PCV) PNEUMOCOCCAL: 65+ (1 - PCV) [facility] Start: 1952 ABDOMINAL AORTIC ANEURYSM SCREENING ABDOMINAL AORTIC ANEURYSM SCREENING [facility] Patient referral [facility] Work Phone: US Carotid arteries [facility] Immunizations Immunization Date Immunization Notes Care Provider Fa [facility] 07-21-[address] Naif De La Vega Work Phone: [facility] 08-28-2015 tetanus toxoid, redu uyen diphtheria toxoid, and acellular pertussis vaccine, adsorbed Dr. Naif De La Vega Work Phone: [facility] Payers Date Payer Category Payer Medicare [id number] 2024 Self-pay [id number] 2020 Medicare [id number] 2020 Medicare HUMANA MEDICARE HUMANA GOLD PLUS [id number] 2020-Present [phone] [address] [address] [place] [address] HMO [id number] 2015 Unknown [id number] 1950 Unknown [id number] Medicare [id number] Medicare [id number] Unknown [id number] Unknown [id number] Unknown [id number] Unknown [id number] Unknown [id number] Unknown [id number] Unknown [id number] Unknown [id number] Unknown [id number] Social History Date Type Detail Facility Start: 01-25-2022 End: 08-08-2023 Tobacco smoking status [facility] Unknown if ever smoked [facility] Start: 10-06-2018 Cigarettes [facility] Start: 1950 Sex Assigned At Male [facility] Start: 10-11-2022 End: 08-08-2023 Tobacco smoking status [facility] Smokes tobacco daily [facility] History of tobacco use Cigarette Smoker [facility] Start: 10-11-2022 Cigarettes smoked current (pack per day) - Reported 1 [facility] Start: 10-11-2022 Tobacco use and exposure Former smokeless tobacco user [facility] Start: 10-11-2022 Alcohol intake Current drinke r of alcohol (finding) [facility] Start: 07-27-2018 Alcohol Comment 1-2x/weeks [facility] Start: 1950 Sex Assigned At Not on file [facility] Goals Date Patient Goal Desired Activity /State Functional Status Date Assessment Result Facility 08-08-2023 Functional status Ambulates [facility] Work Phone: Mental Status Date Assessment Result Facility 08-08-2023 Cognitive function Level Of Cons ciousness Awake;Alert;Appropriate;Follow s Commands [facility] Work Phone: 08-08-2023 Cognitive function Voice/Name [facility] Work Phone: Clinical Notes 03-14-2004 to 08-08-2023 Note Date & Type Note Facility 08-08-2023 Progress note Note Date/Time August 08, 2023 7:36am [facility] Medical Records Department [address] [place] [address] Progress Note - Urology 08/08/23735 MR#: [id number] Acct: [id number] Name: JANETT VUONG Rep #:[id number] : 1950 73 From: Ross Ochoa MD PCP: Dr. Naif De La Vega MD Status:YARELI [place] [id number] Subjective Subjective Status post TURP we can remove the catheter today he can go home after he voids. Objective Data Objective Data Vital Signs: Vital Signs Temp Pulse Resp BP Pulse Ox O2 Del Method 98.2 F 69 16 138/75 H 93 Room Air 08/08/23 06:08 08/08/23 06:08 08/08/23 06:08 08/08/23 06:08 08/08/23 06:08 08/08/23 06:08 Oxygen Delivery Method Room Air Weight: 77 kg Body Mass Index (BMI) 24.3 Intake & Output: Intake and Output for Last 24 Hours 08/06/23 08/07/23 08/08/23 23:59 23:59 23:59 Intake Total 430.75 / 630.75 1383.33 / 1383.33 Output Total 575 / 575 Balance -144.25 / 55.75 1383.33 / 1383.33 Lab / Micro Data Labs: Laboratory Results - last 24 hr 08/07/23 10:26: POC Glucose 135 H 08/07/23 13:50: POC Glucose 127 H 08/08/23 0736 <Electronically signed by Ross Ochoa MD> Cosigner Signature (if applicable): CC: ~ Signed [facility] Work Phone: 1(116) 622-869410-18-2023 Discharge summary Author Ross Ochoa [facility] August 07, 2023 12:45pm Note Date/Time August 07, 2023 1 2:19pm [facility] Medical Records Department [address] [place] [address] Instructions for Home/Discharge Instructions 08/07/23 1217 MR#: [id number] Acct: [id number] Name: JANETT VUONG Rep #:[id number] : 1950 73 From: Ross Ochoa MD PCP: Dr. Naif De La Vega MD Status:[facility] Discharge Instructions Diet Discharge Diet: No restrictions Activity Discharge Activity: Return to Normal Activity and May Not Drive (while taking narcotic pain medications.) Dressing / Incision Call your doctor if you observe: Fever of 101 or Higher Follow Up Care Please Follow Up With: Ross Ochoa MD When: Call [phone] for an appointment Test Results: Test results from this visit will be discussed in further detail at your follow- up appointment, if applicable. Discharge Plan Admission Primary Reason for Your Visit: Transurethral section of prostate Attending Provider: Ross Ochoa Primary Care Provider: Naif De La Vega Discharge Orders/Prescriptions Prescriptions: Continued metoprolol succinate 25 mg tablet extended release 24 hr 25 mg PO DAILY 90 Days Qty: 90 Patient Comments: 2 tabs qam, 2 tabs qpm metformin 500 mg tablet 1,000 mg PO BID rosuvastatin 10 mg tablet 10 mg PO DAILY aspirin [Adult Low Dose Aspirin] 81 mg tablet,delayed release (DR/EC) 81 mg PO DAILY coenzyme Q10 [Co Q-10] 100 mg capsule 100 mg PO DAILY cyanocobalamin (vitamin B-12) [Vitamin B-12] 100 mcg tablet 100 mcg PO .3xweek cholecalciferol (vitamin D3) 25 mcg (1,000 unit) capsule 25 mcg PO DAILY amlodipine 10 mg tablet 10 mg PO DAILY nitroglycerin 0.4 mg tablet, sublingual 0.4 mg SUBLINGUAL Q5M PRN (Reason: Chest Pain) Qty: 25 3RF Held clopidogrel [Plavix] 75 mg tablet 75 mg PO DAILY Hold Instructions: Resume on 08/21/23. Discontinued tamsulosin 0.4 mg capsule 0.4 mg PO BID 30 Days Qty: 30 Referrals / Follow Up: Ross Ochoa MD [Med Staff - Active Staff] - Naif De La Vega MD [Primary Care Provider] - Disposition Disposition (needs filled in before D/C Order can be placed): Home, Self Care 08/07/23 1245<Electronically signed by Ross Ochoa MD>Ross Ochoa MD CC: Dr. Naif De La Vega MD ~ Signed [facility] Work Phone: 1(737) 924-325610-18-2023 History and physical note Author Ross Ochoa [facility] August 07, 2023 12:17pm Note Date/Time August 07, 2023 1 2:17pm [facility] Medical Records Department [address] [place] [address] History & Physical Exam 08/07/23 1217 MR#: [id number] Acct: [id number] Name: JANETT VUONG Rep #:[id number] : 1950 73 From: Ross Ochoa MD PCP: Dr. Naif De La Vega MD Status:[facility] [place] [facility] [place] - General General Date of Service: 08/07/23 Chief Complaint: BPH with obstruction HPI Narrative JANETT VUONG, is a 73 M who presents for a transurethral resection of the prostate he has BPH with a significant outlet obstruction [facility] Medical History (Updated 07/31/23 @ 08:16 by Georgie Marquez) Alcohol use Atherosclerosis of [place] coronary artery of [place] heart without angina pectoris Blackout BPH with urinary obstruction Cancer Cardiology follow-up encounter Chronic cough Diabetes Dietary restriction Essential hypertension Headache High cholesterol History of echocardiogram History of IBS History of stress test Hyperlipidemia Hypertension Left carotid artery stenosis Leg cramps Old inferior wall myocardial infarction (1994) Prostate disease Restless legs Smoker Status post placement of implantable loop recorder Syncope Wears dentures Wears glasses Wears partial dentures Home Medications metoprolol succinate 25 mg tablet,extended release 24 hr 25 mg PO DAILY 90 days #90 tabs 12/25/18 [History Last Taken 08/07/23] rosuvastatin 10 mg tablet 10 mg PO DAILY 12/25/18 [History Last Taken Unknown] aspirin 81 mg tablet,delayed release (Adult Low Dose Aspirin) 81 mg PO DAILY 09/03/19 [History Last Taken 07/30/23] coenzyme Q10 100 mg capsule (Co Q-10) 100 mg PO DAILY 09/03/19 [History Last Taken Unknown] clopidogrel 75 mg tablet (Plavix) 75 mg PO DAILY 03/08/20 [History Last Taken 07/30/23] cholecalciferol (vitamin D3) 25 mcg (1,000 unit) capsule 25 mcg PO DAILY 12/20/20 [History Last Taken Unknown] cyanocobalamin (vitamin B-12) 100 mcg tablet (Vitamin B-12) 100 mcg PO .3xweek 12/20/20 [History Last Taken Unknown] metformin 500 mg tablet 1,000 mg PO BID 12/20/20 [History Last Taken Unknown] amlodipine 10 mg tablet 10 mg PO DAILY 01/26/22 [History Last Taken 08/07/23] nitroglycerin 0.4 mg sublingual tablet 0.4 mg sublingual Q5M PRN Chest Pain #25 tabs 05/09/23 [Rx Last Taken Unknown] Allergy/AdvReac Type Severity Reaction Status Date / Time atorvastatin [From Lipitor] Allergy Severe Muscle Verified 08/07/23 10:19 aches simvastatin [From Zocor] AdvReac Severe Hives Verified 08/07/23 10:19 Family History Father CAD (coronary artery disease) Hx CABG Diabetes Myocardial infarction Mother Breast cancer CVA (cerebral vascular accident) Sister Cancer Pancreatic cancer Diabetes Brother Myocardial infarction, Onset Age: 54 Other Family history of CVA Surgical History Encounter for loop recorder at end of battery life (12/27/20) History of appendectomy History of coronary artery stent placement (03/14/04) History of left heart catheterization (02/2001) History of loop recorder (10/06/18) History of tonsillectomy History of transurethral resection of prostate (11/05/18) Hx of transurethral destruction of bladder lesion (11/05/18) Social History Smoking Status: Current every day smoker tobacco type: cigarettes alcohol intake: current alcohol intake frequency: a few times a week Alcohol type: beer and hard liquor substance use type: does not use caffeine: Yes Type: coffee Number of servings: 5 what type of physical activity do you participate in: none seatbelt use: always do you feel safe at home: Yes Vital Signs Vital Signs Vital Signs: 08/07/23 10:19 08/07/23 10:19 Temperature 98.3 F Temperature Source Temporal Pulse Rate 65 Respiratory Rate 18 Respiratory Pattern Normal Blood Pressure 131/70 H Blood Pressure Mean 90 Blood Pressure Source Monitor Blood Pressure Position Semi-Fowlers Blood Pressure Location Right Arm Pulse Ox 100 Oxygen Delivery Method Room Air Weight Weight: 77 kg Body Mass Index (BMI) 24.3 Results Lab / Micro Data Labs: Laboratory Results - last 24 hr 08/07/23 10:26: POC Glucose 135 H 08/07/23 1217 <Electronically signed by Ross Ochoa MD> Cosigner Signature (if applicable): CC: Dr. Naif De La Vega MD; Dr. Ross Ochoa MD~ Signed [facility] Work Phone: 1(503) 756-287510-18-2023 Procedure [facility] 10-11-2022 NoteHNO ID: [id number] Author: Kelvin Dupont MD Service: ? Author Type: Physician Type: Progress Notes Filed: 10/11/2022 8:19 AM Note Text: HISTORY AND PHYSICAL Janett Vuong 1950 REFERRING PHYSICIAN: Naif De La Vega, * CHIEF COMPLAINT: Thrombosed hemorrhoid HPI: Janett is a 72 year old male with a complaint of a thrombosed hemorrhoid. he has noticed anal pain and swelling for the past 8 days. he notes drainage from the thrombosed hemorrhoid. Janett denies a prior history of thrombosed hemorrhoids. he notes a history of constipation and straining. The patient is on Plavix for coronary artery disease with stent placement The patient was seen by his primary care physician and was referred for treatment. The patient is being seen by me today at the request of Dr. Naif De La Vega MD for my opinion and advice regarding thrombosed hemorrhoid. SIGNIFICANT MEDICAL PROBLEMS: PAST MEDICAL HISTORY Diagnosis Date Benign prostatic hyperplasia with urinary frequency Bladder cancer (HCC) BPH (benign prostatic hyperplasia) CAD (coronary artery disease) Heart attack (HCC) Hemorrhoids High cholesterol Hypertension OPERATIONS: PAST SURGICAL HISTORY Procedure Laterality Date ANGIOPLASTY HX with cardiac stent x1 APPENDECTOMY HX CAUTER TURBINATE MUCOSA,INTRAMURAL 2019 CYSTOSCOPY 2018, 2019, 2019, 2020 TONSILLECTOMY HX TRANSURETHRAL ELEC-SURG PROSTATECTOM 2019 CURRENT MEDICATIONS: Current Outpatient Medications Medication Sig Dispense Refill metoprolol succinate ER (TOPROL XL) 25 mg 24 hr tablet Take 25 mg by mouth once daily. metFORMIN (GLUCOPHAGE) 500 mg tablet Take 1,000 mg by mouth twice daily with meals. acetaminophen (TYLENOL) 325 mg tablet Take 2 tablets by mouth four times daily. guaiFENesin (MUCINEX) 600 mg 12 hr tablet Take 1 tablet by mouth every 12 hours. (Patient not taking: Reported on 05/11/2019 ) 14 tablet 0 polyethylene glycol 3350 (MIRALAX, GLYCOLAX) 17 gram packet Take 1 Packet by mouth once daily. (Patient not taking: Reported on 05/11/2019 ) senna-docusate (SENNA-S) 8.6-50 mg per tablet Take 1 tablet by mouth twice daily. (Patient not taking: Reported on 05/11/2019 ) cyclobenzaprine (FLEXERIL) 10 mg tablet Take 1 tablet by mouth three times daily as needed for Muscle Spasm. (Patient not taking: Reported on 05/11/2019 ) 21 tablet 0 Cholecalciferol, Vitamin D3, 5,000 unit cap Take 1 capsule by mouth once daily. 30 capsule 0 clopidogrel bisulfate(PLAVIX 75 MG TAB) Take one(1) tablet daily. 0 ATENOLOL 50 MG TAB Take one(1) tablet daily. 0 rosuvastatin calcium(CRESTOR 5 MG TAB) Take one(1) tablet daily. 0 nitroglycerin(NITROSTAT 0.4 MG SUBLINGUAL TAB) Place one(1) tablet on tongue as needed for chest pain. If no pain relief call 911. 0 aspirin(ADULT LOW DOSE ASPIRIN 81 MG TAB, DELAYED RELEASE) Take one(1) tablet daily. 0 No current facility-administered medications for this visit. ALLERGIES: Patient has no known allergies. PERSONAL HISTORY: Social History Tobacco Use Smoking status: Every Day Packs/day: 1.00 Types: Cigarettes Smokeless tobacco: Former Vaping Use Vaping Use: Never used Substance Use Topics Alcohol use: Yes Comment: 1-2x/weeks Drug use: No FAMILY HISTORY: FAMILY HISTORY Problem Relation Age of Onset other (dm2) Mother other (dm2) Father REVIEW OF SYMPTOMS: The review of systems data was entered by the nurse and reviewed by me There are no exam notes on file for this visit. PHYSICAL EXAMINATION: General: The patient is 72 year old male, well nourished, well hydrated in no acute distress. The patient is oriented to time, place, and person. VITALS: Blood pressure 136/70, pulse 84, temperature 37 ?C (98.6 ?F), height 177.8 cm (5' 10), weight 82.8 kg (182 lb 9.6 oz), SpO2 100 %. Body mass index is 26.2 kg/m?. HEENT: exam deferred Respiratory: exam deferred Cardiac: exam deferred. Abdominal exam: exam deferred Rectal exam: prolapsing thrombosed hemorrhoids in left lateral position. Digital rectal exam - deferred Extremities: exam deferred Other: LABORATORY VALUES: As Noted RADIOLOGIC STUDIES: As Noted PROCEDURE: INCISION AND EVACUATION OF THROMBOSED HEMORRHOID After consent was obtained and the site, person, and procedure verified, the patient`s skin was prepped and draped in the usual fashion. A combination of Lidocaine and Marcaine was injected into the skin and the hemorrhoidal complex. A linear incision was made over the point of thrombosis. A small amount of thrombus was evacuated. Pressure was held to obtain hemostasis. The patient tolerated the procedure well. Assessment IMPRESSION: STATUS POST INCISION AND EVACUATION OF THROMBOSED HEMORRHOID PLAN: Janett is instructed to perform sitz baths twice a day and after each bowel movement. Place dibucaine ointment on anus as needed and before all bowel movements. Keep stools soft and avoid strainin (more content not included)...[facility]12-22-2022 NoteHNO ID: [id number] Author: Joaquina Grant RN Service: ? Author Type: Registered Nurse Type: Progress Notes Filed: 10/11/2022 8:19 AM Note Text: UNIVERSAL PROTOCOL / SAFETY CHECKLIST Procedure to be Performed: Incision and evacuation of thrombosed hemorrhoid Sign In: A Moment of CARE was completed. Personnel directly involved with the procedure wore the appropriate PPE (Personal Protective Equipment). No special equipment needed. Patient/Surrogate Stated/Verified: PATIENT VERIFIED(optional for EMERGENT procedures): Patient name, Date of , Relevant allergies, and The intended procedure Time Out Communication: Intended patient and procedure match the source documents. Consent documented and matches the intended procedure. No relevant labs, photos, and/or imaging studies were applicable for review. Correct side/site marked and visible. Medications required for procedure verified. No fire risk assessment and interventions applicable. No implant(s) inserted. Sign Out: SIGN OUT (optional for EMERGENT procedures): No specimen collected. No instruments, equipment or retained foreign bodies applicable. Post-procedure follow-up management communicated and Plan of Care Visit completed when applicable. Joaquina Grant [facility]NP[facility] Nurse Note* Joaquina Grant RN - 10/11/2022 8:57 AM EST REVIEW OF SYSTEMS: General: The patient denies fatigue, denies weight loss, denies weight gain, denies feeling hot, and denies feelings of cold. Eyes: The patient denies glaucoma, denies eye injury/surgery, wears glasses or contacts. Ear/Nose/Throat: The patient denies allergies, denies hayfever, denies ear infections, and denies bloody noses. Cardiovascular: The patient denies chest pain, NOTES heart disease, NOTES high blood pressure,NOTEScardiac stent, denies prior heart attack, denies irregular heart beat, denies high cholesterol, denies poor circulation, denies heart failure, other cardiac issues, denies claudication, denies cold feet, denies peripheral arterial stent. Respiratory: The patient denies tuberculosis, denies pneumonia, denies frequent cough, denies pulmonary embolism, denies shortness of breath, and denies coughing up blood. Gastrointestinal: The patient denies difficulty swallowing, denies acid reflux, denies ulcers, denies vomiting, denies jaundice/hepatitis, denies gallbladder problems, denies black or tarry stools, NOTES hemorrhoids, NOTES bleeding from rectum, denies diverticulitis, NOTES constipation, denies diarrhea, denies loss of stool control, and denies hernias. Kidney/Bladder: The patient denies kidney stones, denies urine infections, and denies bloody urine. Skin: The patient denies a history of skin cancer, denies bleeding/changing moles, and denies a history of skin rash. Neurologic: The patient denies a history of epilepsy/convulsions, denies headaches, denies head/spinal injuries, and denies stroke/TIA. Psychiatric: The patient denies psychiatric medications, denies depression, and denies voices, denies substance abuse. Endocrine: The patient denies thyroid disorders, NOTES diabetes, and denies hormonal problems. Hematologic: The patient denies a history of bruising, NOTES bleeding, and denies anemia, denies blood clots. Infections: The patient denies a history of measles and mumps, denies rheumatic fever, and denies sexually transmitted diseases. Musculoskeletal: The patient denies back pain/injury, denies back problems, denies sciatica, deniesknee/foot trouble, denies arthritis, or denies gout. When was patient's last Mammogram screening? N/A Last Colonoscopy: Unknown Joaquina Grant RN [facility] Inst[facility]* Patient Instructions* Joaquina Grant RN - 10/11/2022 8:17 AM EST The following instructions are important for you related to your office visit today with the [facility] General Surgeons. Instructions After THROMBOSED HEMORRHOID I&D STATUS POST INCISION AND EVACUATION OF THROMBOSED HEMORRHOID Janett is instructed to perform sitz baths twice a day and after each bowel movement. Place dibucaine ointment on anus as needed and before all bowel movements. Keep stools soft and avoid straining if possible. You may take Tylenol and Ibuprofen as needed for pain. Some bleeding from the incision site where the blood clot was removed is common. If bleeding presists, press on the area with a clean gauze or towel, you may sit with a rolled up wash cloth between your buttocks for 15 minutes. If the bleeding persists, please be evaluated at the emergency room. If pain increases, a new thrombosed hemorrhoid may be present. Return immediately. Return if symptoms fail to improve. If you note any additional difficulties, questions, or concerns, you should contact our office immediately @ [phone] and ask to be transferred to the General Surgery department. [facility] History of Present illness Narrative* Kelvin Dupont MD - 10/11/2022 8:16 AM EST HISTORY AND PHYSICAL Janett Vuong 1950 REFERRING PHYSICIAN: Naif De La Vega, * CHIEF COMPLAINT: Thrombosed hemorrhoid HPI: Janett is a 72 year old male with a complaint of a thrombosed hemorrhoid. he has noticed anal pain and swelling for the past 8 days. he notes drainage from the thrombosed hemorrhoid. Janett denies a prior history of thrombosed hemorrhoids. he notes a history of constipation and straining. The patient is on Plavix for coronary artery disease with stent placement The patient was seen by his primary care physician and was referred for treatment. The patient is being seen by me today at the request of Dr. Naif De La Vega MD for my opinion and advice regarding thrombosed hemorrhoid. SIGNIFICANT MEDICAL PROBLEMS: PAST MEDICAL HISTORY Diagnosis Date Benign prostatic hyperplasia with urinary frequency Bladder cancer (HCC) BPH (benign prostatic hyperplasia) CAD (coronary artery disease) Heart attack (HCC) Hemorrhoids High cholesterol Hypertension OPERATIONS: PAST SURGICAL HISTORY Procedure Laterality Date ANGIOPLASTY HX with cardiac stent x1 APPENDECTOMY HX CAUTER TURBINATE MUCOSA,INTRAMURAL 2019 CYSTOSCOPY 2018, 2019, 2019, 2020 TONSILLECTOMY HX TRANSURETHRAL ELEC-SURG PROSTATECTOM 2019 CURRENT MEDICATIONS: Current Outpatient Medications Medication Sig Dispense Refill metoprolol succinate ER (TOPROL XL) 25 mg 24 hr tablet Take 25 mg by mouth once daily. metFORMIN (GLUCOPHAGE) 500 mg tablet Take 1,000 mg by mouth twice daily with meals. acetaminophen (TYLENOL) 325 mg tablet Take 2 tablets by mouth four times daily. guaiFENesin (MUCINEX) 600 mg 12 hr tablet Take 1 tablet by mouth every 12 hours. (Patient not taking: Reported on 05/11/2019 ) 14 tablet 0 polyethylene glycol 3350 (MIRALAX, GLYCOLAX) 17 gram packet Take 1 Packet by mouth once daily. (Patient not taking: Reported on 05/11/2019 ) senna-docusate (SENNA-S) 8.6-50 mg per tablet Take 1 tablet by mouth twice daily. (Patient not taking: Reported on 05/11/2019 ) cyclobenzaprine (FLEXERIL) 10 mg tablet Take 1 tablet by mouth three times daily as needed for Muscle Spasm. (Patient not taking: Reported on 05/11/2019 ) 21 tablet 0 Cholecalciferol, Vitamin D3, 5,000 unit cap Take 1 capsule by mouth once daily. 30 capsule 0 clopidogrel bisulfate(PLAVIX 75 MG TAB) Take one(1) tablet daily. 0 ATENOLOL 50 MG TAB Take one(1) tablet daily. 0 rosuvastatin calcium(CRESTOR 5 MG TAB) Take one(1) tablet daily. 0 nitroglycerin(NITROSTAT 0.4 MG SUBLINGUAL TAB) Place one(1) tablet on tongue as needed for chest pain. If no pain relief call 911. 0 aspirin(ADULT LOW DOSE ASPIRIN 81 MG TAB, DELAYED RELEASE) Take one(1) tablet daily. 0 No current facility-administered medications for this visit. ALLERGIES: Patient has no known allergies. PERSONAL HISTORY: Social History Tobacco Use Smoking status: Every Day Packs/day: 1.00 Types: Cigarettes Smokeless tobacco: Former Vaping Use Vaping Use: Never used Substance Use Topics Alcohol use: Yes Comment: 1-2x/weeks Drug use: No FAMILY HISTORY: FAMILY HISTORY Problem Relation Age of Onset other (dm2) Mother other (dm2) Father REVIEW OF SYMPTOMS: The review of systems data was entered by the nurse and reviewed by me There are no exam notes on file for this visit. PHYSICAL EXAMINATION: General: The patient is 72 year old male, well nourished, well hydrated in no acute distress. The patient is oriented to time, place, and person. VITALS: Blood pressure 136/70, pulse 84, temperature 37 C (98.6 F), height 177.8 cm (5' 10), weight 82.8 kg (182 lb 9.6 oz), SpO2 100 %. Body mass index is 26.2 kg/m . HEENT: exam deferred Respiratory: exam deferred Cardiac: exam deferred. Abdominal exam: exam deferred Rectal exam: prolapsing thrombosed hemorrhoids in left lateral position. Digital rectal exam - deferred Extremities: exam deferred Other: LABORATORY VALUES: As Noted RADIOLOGIC STUDIES: As Noted PROCEDURE: INCISION AND EVACUATION OF THROMBOSED HEMORRHOID After consent was obtained and the site, person, and procedure verified, the patient`s skin was prepped and draped in the usual fashion. A combination of Lidocaine and Marcaine was injected into the skin and the hemorrhoidal complex. A linear incision was made over the point of thrombosis. A small amount of thrombus was evacuated. Pressure was held to obtain hemostasis. The patient tolerated the procedure well. Assessment IMPRESSION: STATUS POST INCISION AND EVACUATION OF THROMBOSED HEMORRHOID PLAN: Janett is instructed to perform sitz baths twice a day and after each bowel movement. Place dibucaine ointment on anus as needed and before all bowel movements. Keep stools soft and avoid straining if possible. Some bleeding from the incision site where the blood clot was removed is common. If bleeding presists, press on the area with a clean gauze or towel. If pain increases, a new thrombosed hemorrhoid may be present. Return immediately. Return if symptoms fail to improve. Diagnoses: (K64.5) External hemorrhoid, thrombosed (primary encounter diagnosis) A letter was sent to Dr. Naif De La Vega MD indicating the above finding for this patient. Return to Clinic: The patient is instructed to follow-up with me as needed. Kelvin Dupont MD * Joaquina Grant RN - 10/11/2022 8:10 AM EST UNIVERSAL PROTOCOL / SAFETY CHECKLIST Procedure to be Performed: Incision and evacuation of thrombosed hemorrhoid Sign In: A Moment of CARE was completed. Personnel directly involved with the procedure wore the appropriate PPE (Personal Protective Equipment). No special equipment needed. Patient/Surrogate Stated/Verified: PATIENT VERIFIED(optional for EMERGENT procedures): Patient name, Date of , Relevant allergies, and The intended procedure Time Out Communication: Intended patient and procedure match the source documents. Consent documented and matches the intended procedure. No relevant labs, photos, and/or imaging studies were applicable for review. Correct side/site marked and visible. Medications required for procedure verified. No fire risk assessment and interventions applicable. No implant(s) inserted. Sign Out: SIGN OUT (optional for EMERGENT procedures): No specimen collected. No instruments, equipment or retained foreign bodies applicable. Post-procedure follow-up management communicated and Plan of Care Visit completed when applicable. Joaquina Grant RN documented in this encounterCity [facility]10-08-[facility] History of Past illness Narrative* Problem Noted Date Resolved Date Fall 07/28/2018 07/30/2018 Dizziness 07/28/2018 07/30/2018 documented as of this encounter (statuses as of 10/12/2022) [facility]* Diagnosis Onset Date Resolution Status Essential hypertension chron ic Hyperlipidemia chronic History of coronary artery stent placement March 14, 2 004 resolved [facility] Work Phone: [phone] 855-933605-25-2004 Evaluation note* Diagnosis Onset Date Resolution Status Essential hypertension chron ic Hyperlipidemia chronic History of coronary artery stent placement March 14, 2 004 resolved Left carotid artery stenosis [facility] Work Phone: Evaluation noteNo assessment information available [facility] Work Phone: Evaluation note* Diagnosis External hemorrhoid, thrombosed- Primary External thrombosed hemorrhoids [facility] Diagnosis Onset Date Resolution Status Left carotid artery stenosis [facility] Work Phone: Evaluation note* Diagnosis Onset Date Resolution Status Admit Date Essential hypertension chronic Ju 2024 11:08am Hyperlipidemia chronic May 06, 2025 11:08am Left carotid artery stenosis chronic May 06, 2025 11:08am History of coronary artery stent placement March 14, 2004 resolved May 06, 2025 11:08am [facility] Work Phone: Hospital Discharge instructions Additional Instructions Implant Used?: [facility] Work Phone: Reason for referral (narrative)No reason for referral information availableKe[facility] Work Phone: Summary Purpose Family History No Family History Records Found Relationship Condition Age at Onset Recorded Date/T damien Not Specified Family history of ce rebrovascular accident (CVA) Unknown father Coronary artery disease Unknown Diabetes mellitus Unknown Myocardial infarction Unknown mother Malignant neoplasm of breast Unknown Cerebrovascular accident (CVA) Unknown sister Malignant neoplasm Unknown brother Myocardial infarction 54 Advance Directives No Advanced Directives Records Found Advance Directive Response Recorded Date/ Time Advance Directives No December 27 8:00am Living Will Yes December 27, 2020 8:00am Power of Real Estate Officer No December 27 8:00am Advance Directive Response Recorded Date/ Time Advance Directives No December 27 7:00am Living Will Yes December 27, 2020 7:00am Power of Real Estate Officer No December 27 7:00am Advance Directive Response Recorded Date/ Time Advance Directives No December 27 8:00am Living Will No August 07 6:20pm Power of Real Estate Officer No August 07, 2023 6:20pm Advance Directive Response Recorded Date/ Time Advance Directives No December 27 7:00am Living Will No August 07 5:20pm Power of Real Estate Officer No August 07, 2023 5:20pm Advance Directive Response Recorded Date/ Time Advance Directives No December 27 8:00am Hospital Course Note HNO ID: [id number]: Valerie Crooks: TraumaAuthomara Type: PhysicianType: Discharge SummariesFiled: 07/30/2018 2:22 PMNote Text: DISCHARGE SUMMARYPATIENT NAME: Janett Vuong Code Status: Not on fileMRN: [id number] Readmission Risk Score: 18 The 30 day readmissions risk score is derived from an internallyvalidated risk model which evaluates patient level characteristics,utilization history, medication orders and lab results up until the day ofdischarge. Patients with a score of 40 or above are considered highestrisk for readmission. Specific patient level drivers will be listed at thebottom of the summary.Admission Information Admission Information ADMIT DATE: 07/27/2018DISCHARGE DATE: 07/30/2018[facility] Doctor: Alondra Tong Care Provider: Yuridia Reyes Medical Team Members: Treatment Team:Attending Provider: Alondra VeronicaatConsulting: Josiah RocaaConsulting: Ak Sound CopperMY CONDITION AT DISCHARGE: StableREASON I WAS IN (more content not included)... Chief Complaint and Reason for Visit Chief Complaint 1 Y FU INT LABS Reason for Visit Essential hypertensi on Hyperlipidemia History of coronary artery stent placement Chief Complaint 1 Y FU INT LABS CAROTID STENOSIS Reason for Visit Essential hypertensi on Hyperlipidemia History of coronary artery stent placement Chief Complaint INT LABS 1 y fu E-ORDER Reason for Visit Essential hypertensi on Hyperlipidemia History of coronary artery stent placement Chief Complaint 1 y fu E-ORDER CAROTID STENOSIS Reason for Visit Essential hypertensi on Hyperlipidemia History of coronary artery stent placement Chief Complaint 1 y fu E-ORDER CAROTID STENOSIS CONSULT-CAROTID STENOSIS Cysto,Transurethral Resection Prost Reason for Visit Essential hypertensi on Hyperlipidemia History of coronary artery stent placement Left carotid artery stenosis Chief Complaint CAROTID STENOSIS CONSULT-CAROTID STENOSIS Cysto,Transurethral Resection Prost INT LABS Reason for Visit Left carotid artery stenosis Chief Complaint INT LABS Occlusion and stenosis of left carotid artery Chief Complaint Admit Date INT LABS March 11, 2025 9:04a m Chief Complaint Admit Date INT LABS March 11, 2025 9:04a m 6 M FU May 06, 2025 11:0 8am Reason for Visit Admit Date Essential hypertension May 06, 2025 1 1:08am Hyperlipidemia May 06, 2025 11:0 8am Left carotid artery stenosis May 06, 2025 11:08am History of coronary artery stent placeme nt May 06, 2025 11:08am Additional Source Comments (unrecognized sect ion and content) No Status Records FoundNo Status Records FoundNo Status Records FoundNo Status Records Found INFORMATION SOURCE (unrecogn ized section and content) DATE CREATED AUTHOR 08/25/2018 [place] [facility] DATE CREATED AUTHOR AUTHOR'S ORGANIZ ATION 09/03/2018 [facility] DATE CREATED AUTHOR AUTHOR'S ORGANIZ ATION 10/14/2022 [facility] DATE CREATED AUTHOR AUTHOR'S ORGANIZ ATION 05/09/2025 [facility] Goals (unrecognized section and content) Goals may be documented in a n alternate sectionGoals may be documented in an alternate sectionGoals may be documented in an alternate sectionGoals may be documented in an alternate sectionGoals may be documented in an alternate sectionGoals may be documented in an alternate sectionGoals may be documented in an alternate sectionGoals may be documented in an alternate sectionGoals may be documented in an alternate section Source Comments (unrecognize d section and content) In the event this informatio n is protected by the Federal Confidentiality of Alcohol and Drug Abuse Patient Records regulations: The Federal rules restrict any use of the information to criminally investigate or prosecute any alcohol or drug abuse patient.[facility] Reason for Visit (unrecogniz ed section and content) Reason Comments Consult Hemorrhoids, rectal bleeding Care Teams (unrecognized sec tion and content) Management Lead Relationship Specialty Start Date End Date Naif De La Vega [address] [facility] [address] [place] [address] PCP - General Family Medicine 10/08/22 Team Status: Active Member Role Status Dates Dr. Naif De La Vega MD Family Provider Active Dr. Naif De La Vega MD Primary Care Provider Active Team Status: Inactive Member Role Status Dates Dr. Naif De La Vega MD Primary Care Provider, Referr ing Provider Active Dr. Xavi Brody MD Attending Provider Active Team Status: Inactive Member Role Status Dates Dr. Naif De La Vega MD Primary Care Pr ovider, Attending Provider, Referring Provider Active Team Status: Active Member Role Status Dates Dr. Naif De La Vega MD Primary Care Provider Active Dr. Terry Taylor MD Attending Provider Active Team Status: Active Member Role Status Dates Dr. Naif De La Vega MD Primary Care Provider, Referr ing Provider Active Dr. Terry Taylor MD Attending Provider Active Team Status: Inactive Member Role Status Dates Dr. Naif De La Vega MD Primary Care Provider, Referr ing Provider Active KEYSHAWN Cabrera Attending Provider Active Team Status: Inactive Member Role Status Dates Dr. Naif De La Vega MD Primary Care Provider Active Dr. Ross Ochoa MD Admit Provid er, Attending Provider, Referring Provider Active Team Status: Inactive Member Role Status Dates Dr. Naif De La Vega MD Primary Care Provider Active KEYSHAWN Cabrera Attending Provider, Referring Provid er Active Team Status: Active Member Role Status Dates Dr. Naif De La Vega MD Primary Care Provider Active Brittni Jane Attending Provider, Referring Provide r Active Team Status: Inactive Member Role Status Dates Dr. Naif De La Vega MD Primary Care Provider Active Brittni Jane Attending Provider, Referring Provide r Active Team Status: Active Member Role Status Dates Dr. Naif De La Vega MD Primary Care Provider Active Team Status: Inactive Member Role Status Dates Dr. Naif De La Vega MD Primary Care Provider Active Start: March 11, 2025 End: March 11, 2025 Dr. Naif De La Vega MD Attending Provider Active Start: March 11, 2025 End: March 11, 2025 Dr. Naif De La Vega MD Referring Provider Active Start: March 11, 2025 End: March 11, 2025 Team Status: Active Member Role/Relationship Status Dates Dr. Naif De La Vega MD Primary Care Provider Active Team Status: Inactive Member Role/Relationship Status Dates Dr. Naif De La Vega MD Primary Care Provider Active Start: March 11, 2025 End: March 11, 2025 Dr. Naif De La Vega MD Attending Provider Active Start: March 11, 2025 End: March 11, 2025 Dr. Naif De La Vega MD Referring Provider Active Start: March 11, 2025 End: March 11, 2025 Team Status: Inactive Member Role/Relationship Status Dates Dr. Naif De La Vega MD Primary Care Provider Active Start: May 06, 2025 End: May 06, 2025 Dr. Naif De La Vega MD Referring Provider Active Start: May 06, 2025 End: May 06, 2025 Juliet MAHAJAN, PA Attending Provider Active Start: May 06, 2025 End: May 06, 2025 FOR RECORDS PERTAINING TO PATIENTS WHO ARE OR HAVE BEEN ENROLLED IN A CHEMICAL DEPENDENCY/SUBSTANCEABUSE PROGRAM, SOME INFORMATION MAY BE OMITTED. This clinical summary was aggregated from multiple sources. Caution should be exercised in using it in the provision of clinical care. This summary normalizes information from multiple sources, and as a consequence, information in this document may materially change the coding, format and clinical context of patient data. In addition, data may be omitted in some cases. CLINICAL DECISIONS SHOULD BE BASED ON THE PRIMARY CLINICAL RECORDS. [employer] [facility]. provides no warranty or guarantee of the accuracy or completeness of information in this document.
[2025-07-02 08:32] LABS: Hematocrit 41.5 % (40-54); Hemoglobin 13.9 g/dL (13.0-16.5); Immature Granulocytes Count 0.030 X10^3/uL (0.0-0.0); Mean Corp Hgb Conc 33.5 g/dL (32-36); Mean Corpuscular Volume 87.9 fL (80-94); Mean Platelet Vol. 10.3 fl (6.2-12.0); NRBC Flagged by Analyzer 0 % (0-5); Platelet Count 224 K/mm3 (150-450); RBC Distribution Width CV 13.2 % (11.6-14.6); RBC Distribution Width SD 42.5 fl (35.1-43.9); Red Blood Count 4.72 M/mm3 (4.6-6.2); White Blood Count 8.3 K/mm3 (4.4-11.0)
[2025-07-02 09:29] LABS: AST(SGOT) 16 U/L (<=37); Alanine Aminotransfer ALT/SGPT 10 U/L (<=46); Albumin, Serum 4.7 g/dL (3.4-4.8); Alkaline Phosphatase 74 U/L (40-129); Anion Gap 12 (5-15); BUN 17 mg/dL (4-19); BUN/Creat Ratio 17.2 RATIO (10-20); Calcium,Total 9.9 mg/dL (7.6-11.0); Carbon Dioxide 22.9 mmol/L (21.0-32.0); Chloride 101 mmol/L (98-108); Globulin 2.8 g/dL (2.2-4.2); Glucose 133 mg/dL (70-99); Potassium 4.7 mmol/L (3.3-5.1); Vitamin B12 1078 pg/mL (180-914); Vitamin D,25 Hydroxy 61.8 ng/mL (30-100)
[2025-07-02 09:59] LABS: Color, Urine Yellow (Yellow); Glucose, Dipstick Normal (Normal); Ketone-Dipstick Negative (Negative); Leukocyte Esterase-Dipstick Negative /ul (Negative); Nitrite-Dipstick Negative (Negative); Occult Blood-Urine Negative /ul (Negative); Protein-Dipstick Negative (Negative); Specific Gravity, Urine 1.015 (1.002-1.030); Urine Bilirubin Dipstick Negative (Negative)
[2025-07-02 10:07] LABS: Squamous Epithelial Cells - UA 0-5 SEEN /hpf (0-5)
[2025-07-02 10:20] LABS: Creatinine, Urine (random) 58.60 mg/dL (39.00-259.00); Microalbumin,Random Urine < 12.0 mg/L (<20 mg/L)
[2025-07-02 10:37] LABS: Cholesterol 127 mg/dL (<=200); Low Density Lipoprotein Calc. 58 mg/dL; Triglycerides 82 mg/dL; Very Low Density Lipoprotein 16 mg/dL (5-40); cholesterol:hdl ratio screen 2.42
== END | disposition home or self-care (01) ==
LOC: LAB 07:43
PROVIDERS: PCP Family Medicine; Referring Provider Family Medicine; Visit Provider Family Medicine
DX: E11.69 Type 2 diabetes mellitus with other specified complication (principal); E55.9 Vitamin D deficiency, unspecified
CPT/HCPCS: 36415; 80053; 80061; 81001; 82043; 82306; 82570; 82607; 83036; 85025

== ENCOUNTER → 2025-08-09 | Outpatient (CLI) | payer MEDICARE, SELFPAY ==
[2025-08-09 15:06] LABS: PSA,Total - Annual Screen 0.22 ng/mL (0.02-4.00)
== END | disposition home or self-care (01) ==
LOC: LAB 13:21
PROVIDERS: PCP Family Medicine; Referring Provider Urology; Visit Provider Urology
DX: Z12.5 Encounter for screening for malignant neoplasm of prostate (principal)
CPT/HCPCS: 36415; 84153; G0103

== ENCOUNTER 2025-09-29 13:09 | Day surgery (SDC) | payer MEDICARE, SELFPAY ==
--- NOTE | 2025-09-28 14:06 | PAT.ANE_ITS ---
Pre-Assessment Diagnosis/Proposed Procedure Planned Operative Procedure(s): CYSTO DILATION URETHERAL STRICTURE AND DUVALL RETROGRADE Anesthesia History Anesthesia History - machine try out setter: Anesthesia History - machine try out setter Hx Hospitalization No 09/28/25 13:22 Any Problems With Anesthesia No 09/28/25 13:22 Cholinesterase deficiency No 09/28/25 13:22 You/Your Family Experience No 09/28/25 13:22 fever (hyperthermia) with Relationship Recent Exposure to Contagious No 08/07/23 10:19 Disease Does patient have nerve No 09/28/25 13:22 stimulator Patient instructed to have device shut off --Does patient have Pacemaker or ICD? When Was Last Pacemaker Check QUESTION #4 FULL TEXT: You/Your Family Experience fever (hyperthermia) with Anesthesia Last Oral Intake Last Oral intake: Last Oral Intake NPO since Meds taken in AM with sips of water? Meds patient instructed to take am of surgery PONV PONV - machine try out setter: PONV - machine try out setter Female No 09/28/25 13:22 HX of Motion Sickness No 09/28/25 13:22 HX of N/V After Surgery No 09/28/25 13:22 Non-Smoker No 09/28/25 13:22 Duration of Surgery greater Yes 09/28/25 13:22 than 60 minutes Number of Risk Factors 1 09/28/25 13:22 PONV Score Low Risk 09/28/25 13:22 Height & Weight Height & Weight: Anesthesia: Height & Weight Height 5 ft 10 in 05/06/25 11:30 Respiratory Assessment Respiratory Assessment - machine try out setter: Respiratory Tract Infection Hx - machine try out setter Hx Respiratory Tract Infection No 09/28/25 13:22 STOP Sleep Apnea STOP Sleep Apnea - machine try out setter: STOP Sleep Apnea - machine try out setter Hx Hypertension Yes: CONTROLLED WITH MED 09/28/25 13:22 Hx Sleep Apnea No 09/28/25 13:22 CPAP No 08/07/23 13:03 BIPAP Do you snore loudly (louder No 09/28/25 13:22 than talking or can be heard Do you often feel tired/ Yes 09/28/25 13:22 fatigued/ sleepy during daytime? Has anyone observed you stop No 09/28/25 13:22 breathing during sleep? STOP Results Positive 09/28/25 13:22 QUESTION #5 FULL TEXT : Do you snore loudly (louder than talking or can be heard through closed doors)? Tobacco Use History Tobacco Use History - machine try out setter: Tobacco Use History - machine try out setter Tobacco Use Smoking Status Current every day smoker 09/28/25 13:22 Hx Tobacco Use Yes 09/28/25 13:22 Years Smoking Packs Smoked per Day Smoking Cessation Date was within the last 15 years Hx Smoking Cessation Date Hx Smoking Cessation Counseling Hematologic Medial History Hematologic Hx - machine try out setter: Hematologic Medical Hx - nurse manager Hx of Blood Transfusion No 09/28/25 13:22 Hx of Transfusion in last 3 No 09/28/25 13:22 Months Date of Last Transfusion (if within last 3 months) Ever experience any problems No 09/28/25 13:22 with transfusion(s)? Specify any problems Hx of Preganancy in last 3 N/A 09/28/25 13:22 Months Nurse Filling Out Transfusion DSCHRIBER 09/28/25 13:22 & Questions: Date: 09/28/25 09/28/25 13:22 Time: 13:23 09/28/25 13:22 Patient unable to answer at this time (ie. confused, unrespo /Reproduction History /Reproductive History - machine try out setter: /Reproductive Hx- machine try out setter Hx Now No 09/28/25 13:22 Gestational Age (in weeks): EDC: Hx Hx Para Hx Section SAB No 09/28/25 13:22 Does the father of the baby or his family experience fever w Father of the baby Malignant Hypertension history comment Active Medications Active Medications: Current Medications Generic Name Dose Route Start Last Admin Trade Name Freq PRN Reason Stop Dose Admin Cefazolin Sodium 2 gm/ Sodium 110 mls @ 200 mls/hr 09/29/25 07:00 Chloride IV 09/29/25 07:32 INTRAOP ONE PFS Medical History (Updated 09/28/25 @ 13:28 by Georgie Marquez) Arthritis Wears glasses Wears dentures Wears partial dentures Cancer Alcohol use Diabetes Prostate disease High cholesterol Restless legs Blackout Dietary restriction History of IBS Smoker Chronic cough History of stress test History of echocardiogram Hypertension Cardiology follow-up encounter Status post placement of implantable loop recorder Old inferior wall myocardial infarction (1994) Left carotid artery stenosis Essential hypertension Atherosclerosis of robinson coronary artery of robinson heart without angina pectoris Headache Hyperlipidemia Home Medications ?Medication ?Instructions ?Recorded ?Last Taken ?Type metoprolol succinate 25 mg 25 mg PO DAILY 90 days #90 tabs 12/25/18 08/07/23 History tablet,extended release 24 hr rosuvastatin 10 mg tablet 10 mg PO DAILY 12/25/18 Unkn own History aspirin 81 mg tablet,delayed 81 mg PO DAILY 09/03/19 1 11/29/24 History release (Adult Low Dose Aspirin) clopidogrel 75 mg tablet (Plavix) 75 mg PO DAILY 03/0809/28/25 History metformin 500 mg tablet 1,000 mg PO BID 12/20/20 Unk nown History amlodipine 10 mg tablet 10 mg PO DAILY 01/26/2207/21 History cholecalciferol (vitamin D3) 50 50 mcg PO QDAY 5 Unknown History mcg (2,000 unit) capsule coenzyme Q10 100 mg capsule (Co 200 mg PO DAILY Unknown History Q-10) mecobalamin (vitamin B12) 2,500 1 mcg PO .every other day 05/06/25 Unknown History mcg chewable tablet nitroglycerin 0.4 mg sublingual 0.4 mg sublingual Q5M PRN Chest 05/06/25 Unknown Rx tablet Pain #25 tabs Allergy/AdvReac Type Severity Reaction Status Date / Time atorvastatin (From Lipitor) Allergy Severe Muscle Verified 09/28/25 13:18 aches simvastatin (From Zocor) AdvReac Severe Hives Verified 09/28/25 13:18 Family History Father CAD (coronary artery disease) Hx CABG Diabetes Myocardial infarction Mother Breast cancer CVA (cerebral vascular accident) Sister Cancer Pancreatic cancer Diabetes Brother Myocardial infarction, Onset Age: 54 Other Family history of CVA Surgical History (Updated 09/28/25 @ 13:28 by Georgie Marquez) Encounter for loop recorder at end of battery life (12/27/20) History of transurethral resection of prostate (11/05/18) Hx of transurethral destruction of bladder lesion (11/05/18) History of loop recorder (10/06/18) History of coronary artery stent placement (03/14/04) History of left heart catheterization (02/2001) History of appendectomy History of tonsillectomy Social History Smoking Status: Current every day smoker tobacco type: cigarettes alcohol intake: current alcohol intake frequency: a few times a week Alcohol type: beer and hard liquor substance use type: does not use caffeine: Yes Type: coffee Number of servings: 5 what type of physical activity do you participate in: none seatbelt use: always do you feel safe at home: Yes Audit: Pertinent Findings Pertinent Findings EKG Perinent findings: EKG 08/07/2023. Normal sinus rhythm Stress test pertinent findings: Stress test 05/26/2024. Conclusion. Normal pharmacologic myocardial perfusion stress test. Preserved ejection fraction. The gated ejection fraction is 64%. Consult pertinent findings: Cardiology visit 05/06/2025. He does have a history of previous stent in the LAD. Stress test from 2023 was negative for ischemia. Will continue with medical management. Recommendation Anesthesia Recommendation Anesthesia recommendation: OPTIMIZED for anesthesia
[2025-09-29] VITALS (8 sets, daily range): BP systolic 89–126; BP diastolic 63–80; PULSE 67–72; RESP 12–20; TEMP 36.3–36.9; O2SAT 96–100; BMI 23.3
[2025-09-29] MEDS: Lactated Ringers 1,000 ML 15 ML IV (13:50)
--- NOTE | 2025-09-29 14:01 | PCM.PRE.AN2 ---
ASA Classification* ASA Classification ASA Classification: 3 Assessment & Plan Anesthesia* Anesthesia Assessment Anesthesia Assessment: Discussed sedation and/or anesthesia options, risks, benefits, and alternatives with patient/parents/legal guardian/POA. Questions invited. The patient/parents/legal guardian/POA seems to understand and agrees to proceed with anesthesia plan. Reviewed the physical assessment, medical history, allergy history and patient home medications list prior to surgery/procedure/anesthetic and documented any changes. Performed airway and anesthesia risk assessments. Anesthesia Type Anesthesia Type: General History Source History Obtained from:: Patient and Chart Anesthesia Focused Assessment* Temperature: 98.4 F Pulse Rate: 72 Blood Pressure: 126/76 Respiratory Rate: 12 Pulse Ox: 100 Oxygen Delivery Method: Room Air Airway Assessment Mouth opens: >3 cm Mallampati Score: II Teeth Condition: Intact Labs Anesthesia Preop lab: CBC WBC, (4.4-11.0) 8.3 K/mm3 07/02/25, 07:44 RBC, (4.6-6.2) 4.72 M/mm3 07/02/25, 07:44 Hgb, (13.0-16.5) 13.9 g/dL 07/02/25, 07:44 Hct, (40-54) 41.5 % 07/02/25, 07:44 Plt Count, (150-450) 224 K/mm3 07/02/25, 07:44 CHEMISTRY Potassium, (3.3-5.1) 4.7 mmol/L 07/02/25, 07:44 Sodium, (133-145) 136 mmol/L 07/02/25, 07:44 Magnesium, (1.6-2.6) 2.0 mg/dL 06/11/19, 14:10 BUN, (4-19) 17 mg/dL 07/02/25, 07:44 Creatinine, (0.70-1.20) 1.00 mg/dL 07/02/25, 07:44 Glucose, (70-99) 133 mg/dL H 07/02/25, 07:44 POC Glucose, (74-106) 127 mg/dL H 08/07/23, 13:50 TSH, (0.358-3.74) 1.91 uIU/mL 03/04/24, 08:49 COAG Pre-Assessment Diagnosis/Proposed Procedure Planned Operative Procedure(s): CYSTO DILATION URETHERAL STRICTURE AND DUVALL RETROGRADE Anesthesia History Anesthesia History - surgical physician assistant: Anesthesia History - surgical physician assistant Hx Hospitalization No 09/28/25 13:22 Any Problems With Anesthesia No 09/28/25 13:22 Cholinesterase deficiency No 09/28/25 13:22 You/Your Family Experience No 09/28/25 13:22 fever (hyperthermia) with Relationship Recent Exposure to Contagious No 09/29/25 13:41 Disease Does patient have nerve No 09/28/25 13:22 stimulator Patient instructed to have device shut off --Does patient have Pacemaker No 09/29/25 13:41 or ICD? When Was Last Pacemaker Check QUESTION #4 FULL TEXT: You/Your Family Experience fever (hyperthermia) with Anesthesia Last Oral Intake Last Oral intake: Last Oral Intake NPO since 11:00 09/29/25 13:41 Meds taken in AM with sips of Yes 09/29/25 13:41 water? Meds patient instructed to take am of surgery PONV PONV - surgical physician assistant: PONV - surgical physician assistant Female No 09/28/25 13:22 HX of Motion Sickness No 09/28/25 13:22 HX of N/V After Surgery No 09/28/25 13:22 Non-Smoker No 09/28/25 13:22 Duration of Surgery greater Yes 09/28/25 13:22 than 60 minutes Number of Risk Factors 1 09/28/25 13:22 PONV Score Low Risk 09/28/25 13:22 Height & Weight Height & Weight: Anesthesia: Height & Weight Height 5 ft 10 in 09/29/25 13:41 Weight: 74 kg 09/29/25 13:41 Body Mass Index (BMI) 23.3 09/29/25 13:41 Respiratory Assessment Respiratory Assessment - surgical physician assistant: Respiratory Tract Infection Hx - surgical physician assistant Hx Respiratory Tract Infection No 09/28/25 13:22 STOP Sleep Apnea STOP Sleep Apnea - surgical physician assistant: STOP Sleep Apnea - surgical physician assistant Hx Hypertension Yes: CONTROLLED WITH MED 09/28/25 13:22 Hx Sleep Apnea No 09/28/25 13:22 CPAP No 08/07/23 13:03 BIPAP Do you snore loudly (louder No 09/28/25 13:22 than talking or can be heard Do you often feel tired/ Yes 09/28/25 13:22 fatigued/ sleepy during daytime? Has anyone observed you stop No 09/28/25 13:22 breathing during sleep? STOP Results Positive 09/28/25 13:22 QUESTION #5 FULL TEXT : Do you snore loudly (louder than talking or can be heard through closed doors)? Tobacco Use History Tobacco Use History - surgical physician assistant: Tobacco Use History - surgical physician assistant Tobacco Use Smoking Status Current every day smoker 09/28/25 13:22 Hx Tobacco Use Yes 09/28/25 13:22 Years Smoking Packs Smoked per Day Smoking Cessation Date was within the last 15 years Hx Smoking Cessation Date Hx Smoking Cessation Counseling Hematologic Medial History Hematologic Hx - surgical physician assistant: Hematologic Medical Hx - heat treating bluer Hx of Blood Transfusion No 09/28/25 13:22 Hx of Transfusion in last 3 No 09/28/25 13:22 Months Date of Last Transfusion (if within last 3 months) Ever experience any problems No 09/28/25 13:22 with transfusion(s)? Specify any problems Hx of Preganancy in last 3 N/A 09/28/25 13:22 Months Nurse Filling Out Transfusion DSCHRIBER 09/28/25 13:22 & Questions: Date: 09/28/25 09/28/25 13:22 Time: 13:23 09/28/25 13:22 Patient unable to answer at this time (ie. confused, unrespo /Reproduction History /Reproductive History - surgical physician assistant: /Reproductive Hx- surgical physician assistant Hx Now No 09/28/25 13:22 Gestational Age (in weeks): EDC: Hx Hx Para Hx Section SAB No 09/28/25 13:22 Does the father of the baby or his family experience fever w Father of the baby Malignant Hypertension history comment Active Medications Active Medications: Current Medications Generic Name Dose Route Start Last Admin Trade Name Freq PRN Reason Stop Dose Admin Lactated Ringer's 1,000 mls @ 15 mls/hr 09/29/25 13:30 09/29/25 13:50 IV 15 mls/hr .Q48H GENARO Administration PFSH Medical History Arthritis Wears glasses Wears dentures Wears partial dentures Cancer Alcohol use Diabetes Prostate disease High cholesterol Restless legs Blackout Dietary restriction History of IBS Smoker Chronic cough History of stress test History of echocardiogram Hypertension Cardiology follow-up encounter Status post placement of implantable loop recorder Old inferior wall myocardial infarction (1994) Left carotid artery stenosis Essential hypertension Atherosclerosis of viejas coronary artery of [place]jas heart without angina pectoris Headache Hyperlipidemia Home Medications ?Medication ?Instructions ?Recorded ?Last Taken ?Type metoprolol succinate 25 mg 25 mg PO DAILY 90 days #90 tabs 12/25/18 09/29/25 History tablet,extended release 24 hr rosuvastatin 10 mg tablet 10 mg PO DAILY 12/25/18 09/28/25 History aspirin 81 mg tablet,delayed 81 mg PO DAILY 09/03/19 09/28/25 History release (Adult Low Dose Aspirin) clopidogrel 75 mg tablet (Plavix) 75 mg PO DAILY 03/08/20 09/28/25 History metformin 500 mg tablet 1,000 mg PO BID 12/20/20 09/28/25 History amlodipine 10 mg tablet 10 mg PO DAILY 01/26/22 09/29/25 History cholecalciferol (vitamin D3) 50 50 mcg PO QDAY 05/06/25 09/28/25 History mcg (2,000 unit) capsule coenzyme Q10 100 mg capsule (Co 200 mg PO DAILY 05/06/25 09/28/25 History Q-10) mecobalamin (vitamin B12) 2,500 1 mcg PO .every other day 05/06/25 09/28/25 History mcg chewable tablet nitroglycerin 0.4 mg sublingual 0.4 mg sublingual Q5M PRN Chest 05/06/25 Unknown Rx tablet Pain #25 tabs Allergy/AdvReac Type Severity Reaction Status Date / Time atorvastatin (From Lipitor) Allergy Severe Muscle Verified 09/29/25 13:38 aches simvastatin (From Zocor) AdvReac Severe Hives Verified 09/29/25 13:38 Family History Father CAD (coronary artery disease) Hx CABG Diabetes Myocardial infarction Mother Breast cancer CVA (cerebral vascular accident) Sister Cancer Pancreatic cancer Diabetes Brother Myocardial infarction, Onset Age: 54 Other Family history of CVA Surgical History Encounter for loop recorder at end of battery life (12/27/20) History of transurethral resection of prostate (11/05/18) Hx of transurethral destruction of bladder lesion (11/05/18) History of loop recorder (10/06/18) History of coronary artery stent placement (03/14/04) History of left heart catheterization (02/2001) History of appendectomy History of tonsillectomy Social History Smoking Status: Current every day smoker tobacco type: cigarettes alcohol intake: current alcohol intake frequency: a few times a week Alcohol type: beer and hard liquor substance use type: does not use caffeine: Yes Type: coffee Number of servings: 5 what type of physical activity do you participate in: none seatbelt use: always do you feel safe at home: Yes Prior Cardiac Testing/Procedures Prior Cardiac Testing/Procedures: Cardiac Angiogram ([id number] in 1994; PCI-BMS to Mid LAD w/ 3.0 x 28 mm Express Stent 03/14/2004) Addt'l Information Additional Findings: >4 METs Review of Systems (Anesthesia) ROS Narrative System reviewed and no additional complaints, except as documented. Physical Exam Const alert, oriented x3 and average body habitus Resp normal respiratory effort, normal air movement and clear to auscultation bilaterally Cardio regular rate and regular rhythm Back/Spine normal ROM Neuro oriented x3 and moves all extremities
[2025-09-29] MEDS: fentaNYL 100 MCG/2 ML Ampul IV (17:00)
[2025-09-29] MEDS: Lactated Ringers 500 ML IV (17:00)
[2025-09-29] MEDS: Cefazolin 1 GM/5 ML Vial 2 GM IV (17:00)
[2025-09-29] MEDS: Lidocaine Jelly 2% 20 ML Syringe (URO-JET) 1 APPLIC (17:08)
--- NOTE | 2025-09-29 17:14 | DCINST_ITS ---
Discharge Instructions DC O2, CPAP, BIPAP needs Home O2 Discharge instructions: No Dressing / Incision Discharge Activity: Return to Normal Activity and May Not Drive (while taking narcotic pain medications.) Dressing / Incision Call your doctor if you observe: Fever of 101 or Higher Follow Up Care Please Follow Up With: Rsos Ochoa MD When: Call [phone] for an appointment Test Results: Test results from this visit will be discussed in further detail at your follow- up appointment, if applicable. Discharge Plan Admission Primary Reason for Your Visit: urethral stricture Attending Provider: Ross Ochoa Primary Care Provider: Sampson De La Vega Instructions Print Language: Ukrainian Discharge Orders/Prescriptions Prescriptions: New ciprofloxacin HCl [Cipro] 500 mg tablet 500 mg PO BID Qty: 14 0RF Continued metoprolol succinate 25 mg tablet extended release 24 hr 25 mg PO DAILY 90 Days Qty: 90 metformin 500 mg tablet 1,000 mg PO BID rosuvastatin 10 mg tablet 10 mg PO DAILY aspirin [Adult Low Dose Aspirin] 81 mg tablet,delayed release (DR/EC) 81 mg PO DAILY coenzyme Q10 [Co Q-10] 100 mg capsule 200 mg PO DAILY clopidogrel [Plavix] 75 mg tablet 75 mg PO DAILY amlodipine 10 mg tablet 10 mg PO DAILY cholecalciferol (vitamin D3) 50 mcg (2,000 unit) capsule 50 mcg PO QDAY mecobalamin (vitamin B12) 2,500 mcg tablet,chewable 1 mcg PO .every other day nitroglycerin 0.4 mg tablet, sublingual 0.4 mg SUBLINGUAL Q5M PRN (Reason: Chest Pain) Qty: 25 3RF Referrals / Follow Up: Sampson De La Vega MD [Primary Care Provider, Family Practice] Disposition Disposition (needs filled in before D/C Order can be placed): Home, Self Care
--- NOTE | 2025-09-29 17:15 | PCM.OPRPT ---
Operative Report (Standard) Operative Information Date of Procedure: 09/29/25 Pre-Operative Diagnosis: Urethral stricture Post-Operative Diagnosis: Same Surgery/Procedure Performed: Cystoscopy dilation of urethral stricture pinpoint urethra at the membranous urethra concrete finisher: No Type of Anesthesia: General RN Documented Start/Stop Times: Operation Date: 09/29/25 15:30 Case Time Into Pre-Op 09/29/25 13:17 Out of Pre-Op 09/29/25 16:59 Anesthesia Start 09/29/25 17:00 Into Room 09/29/25 17:00 Procedure Start 09/29/25 17:08 Procedure End 09/29/25 17:11 Procedure Start Time: 17:08 Procedure Stop Time: 17:16 Select all DRAINS/GRAFTS/IMPLANTS that apply: Drains Drain details: 16 fr antunez Estimated Blood Loss: none Specimen collected: No Description of surgery: This is a 75-year-old male who has a history of urethral stricture he had a TURP several years ago at the time of the TURP stricture was found we then dilated the stricture and proceeded with a TURP then about a year later the stricture recurred so I did a DVIU and Antunez placement which helped for about a year and then came back and now and his stricture recurred again in the office I did a scope he has got a pinpoint stricture at the membranous urethra at this point I plan to just to dilate the urethra place the catheter for 2 weeks and start him on self intermittent catheterization and do a referral for reconstructive surgery for this membranous urethral stricture that is recurrent very low likelihood any more dilation is davon help and I will put the patient on self dilation today taken back to the operating room after smooth induction of anesthesia we went into the urethra with the cystoscope we found a pinpoint stricture in the membranous urethra put a wire through this then over the wire I dilated with soft sounds from 12 Mont[place]erratian to 18 [place]ian and then placed a 16 [place] catheter into the bladder was placed in a leg bag and then was transferred to the PACU in stable condition he will go home with a leg bag I will remove the catheter in 2 weeks start intermittent self-catheterization and referral to a specialist for reconstructive options Surgical Findings: Pinpoint stricture in the membranous urethra dilated and 16 [place]erratian catheter placed Complications Complications: No Admit VTE Documentation VTE Present on Admission: No VTE Mechan Device Prophylaxis: SCD's VTE Pharm Prophylaxis ordered?: No
--- NOTE | 2025-09-29 17:27 | PCM.POST.ANE ---
Anesthesia: Postop Eval I Current Vital Signs Temperature: 97.5 F Pulse Rate: 70 Blood Pressure: 89/63 Respiratory Rate: 20 Pulse Ox: 96 Assessment Airway patent: Yes Spontaneous unlabored respirations: Yes nausea: No Vomiting: No Anesthesia Complication: No Fluid Hydration Crystalloid volume administer (ml): 500 Total IV fluid infused: 500 Progress Note Anesthesia document: Postop Eval 1 completed: Yes
--- NOTE | 2025-09-29 17:38 | POSTOPAN2_ITS ---
Anesthesia Postop Eval I Sum Postop Eval Completion status Anesthesia document: Postop Eval 1 completed: Yes Anesthesia Postop Eval I Summary Anesthesia Postop Eval I Summary: Anesthesia Postop Eval I: Assessment Summary Airway patent Yes 09/29/25 17:27 PROGRAM SERVICES ASSISTANT.CSIR Spontaneous unlabored Yes 09/29/25 17:27 PROGRAM SERVICES ASSISTANT.CSIR respirations Mental status nausea No 09/29/25 17:27 PROGRAM SERVICES ASSISTANT.CSIR Vomiting No 09/29/25 17:27 PROGRAM SERVICES ASSISTANT.CSIR Anesthesia Postop Eval I: Fluid Summary Crystalloid volume administer 500 09/29/25 17:27 PROGRAM SERVICES ASSISTANT.CSIR (ml) Colloids volume administered ( ml) Blood Product volume administered (ml) Total IV fluid infused 500 09/29/25 17:27 PROGRAM SERVICES ASSISTANT.CSIR Anesthesia Postop Eval I: Summary Notes Anesthesia Complication No 09/29/25 17:27 PROGRAM SERVICES ASSISTANT.CSIR Anesthesia Complication Comment: Post-operative progress note Anesthesia: Postop Eval II Evaluation Mental status: Awake and Calm Pain Level: 2 nausea: No Vomiting: No Complications Anesthesia Complication: No
--- NOTE | 2025-09-29 17:38 | PCM.POSTANE2 ---
Anesthesia Postop Eval I Sum Postop Eval Completion status Anesthesia document: Postop Eval 1 completed: Yes Anesthesia Postop Eval I Summary Anesthesia Postop Eval I Summary: Anesthesia Postop Eval I: Assessment Summary Airway patent Yes 09/29/25 17:27 PAYABLE REPRESENTATIVE.CSIR Spontaneous unlabored Yes 09/29/25 17:27 PAYABLE REPRESENTATIVE.CSIR respirations Mental status nausea No 09/29/25 17:27 PAYABLE REPRESENTATIVE.CSIR Vomiting No 09/29/25 17:27 PAYABLE REPRESENTATIVE.CSIR Anesthesia Postop Eval I: Fluid Summary Crystalloid volume administer 500 09/29/25 17:27 PAYABLE REPRESENTATIVE.CSIR (ml) Colloids volume administered ( ml) Blood Product volume administered (ml) Total IV fluid infused 500 09/29/25 17:27 PAYABLE REPRESENTATIVE.CSIR Anesthesia Postop Eval I: Summary Notes Anesthesia Complication No 09/29/25 17:27 PAYABLE REPRESENTATIVE.CSIR Anesthesia Complication Comment: Post-operative progress note Anesthesia: Postop Eval II Evaluation Mental status: Awake and Calm Pain Level: 2 nausea: No Vomiting: No Complications Anesthesia Complication: No
== END 2025-09-29 18:05 | disposition home or self-care (01) ==
LOC: SDC 13:11 → AC 13:13
PROVIDERS: PCP Family Medicine; Referring Provider Urology; Visit Provider Urology
PROC: 0T7D8ZZ Dilation of Urethra, Via Natural or Artificial Opening Endoscopic (ICD-10-PCS; CPT 52281; principal; 2025-09-29 15:20)
DX: N40.1 Benign prostatic hyperplasia with lower urinary tract symptoms (principal); E11.9 Type 2 diabetes mellitus without complications; I25.10 Atherosclerotic heart disease of native coronary artery without angina pectoris; I10 Essential (primary) hypertension; Z85.51 Personal history of malignant neoplasm of bladder; F17.210 Nicotine dependence, cigarettes, uncomplicated; N35.011 Post-traumatic bulbous urethral stricture; R33.9 Retention of urine, unspecified
CPT/HCPCS: 52281; 00910; 82962; C1769; J2405